=== PATIENT | female | born 1945 | race Caucasian/White ===

== ENCOUNTER 2019-10-11 12:00 | Outpatient (CLI) | payer MEDICARE, SELFPAY ==
[2019-10-11 12:49] LABS: Blood Urea Nitrogen 17 mg/dL (7-17); Calcium 9.8 mg/dL (8.4-10.2); Carbon Dioxide 27 mmol/L (22-30); Chloride 96 mmol/L (98-107); Estimated Glomerular Filt Rate 55; Glucose 104 mg/dL (65-105); Sodium 137 mmol/L (137-145)
== END 2019-10-11 12:01 | disposition home or self-care (01) ==
DX: I25.10 Atherosclerotic heart disease of native coronary artery without angina pectoris (principal)
CPT/HCPCS: 36415; 80048

== ENCOUNTER 2020-01-22 20:18 | Observation (INO) | payer MEDICARE, SELFPAY ==
--- NOTE | ~2020-01-22 | CT_ITS ---
EXAMINATION: CT abdomen pelvis w con INDICATION: Lower abdominal pain and nausea TECHNIQUE: Computed tomographic images of the abdomen and pelvis were obtained after the administrati on of 100 cc of Omnipaque 350 intravenous contrast. The dose-length product (DLP) was 1080.89 mGy-cm. Automated exposure control and iterative reconstruction technique were employed. COMPARISON: None available FINDINGS: Minimal dependent atelectasis is present in the lung bases. The heart size is normal. Cysts of the liver measure up to 8 mm. The spleen, pancreas, gallbladder, and adrenal glands are normal. T here is scarring in the lower pole of the left kidney. Cysts of the right kidney measure up to 4 mm. There is calcified atherosclerosis of the aorta and many of the other arteries. There is periportal l ymphadenopathy which is likely reactive. There is a large volume of liquid and solid stool throughout the colon. There is a short segment of luminal narrowing the sigmoid colon without significant diste ntion of the upstream bowel, likely due to decompressed state. The stomach is distended. There is wal l thickening involving the third and fourth portions of the duodenum as well as the proximal jejunum. A small amount of fluid is present in the associated small bowel mesentery. The affected loops of aldo wel are not distended. There is a trace volume of pelvic ascites. There is severe lumbar spondylosis. IMPRESSION: 1. Wall thickening involving nondilated loops of proximal small bowel, with edema of the associated s mall bowel mesentery, of unclear etiology. Findings could be inflammatory, related to inflammatory aldo wel disease, enteritis, medication, or less likely ischemia. Reviewed, dictated and finalized at location A. IMPRESSION: 1. Wall thickening involving nondilated loops of proximal small bowel, with arnie ma of the associated small bowel mesentery, of unclear etiology. Findings could be inflammatory, related to inflammatory bowel disease, enteritis, medication, or less likely ischemia.
[2020-01-22 20:23] VITALS: BP 80/51; PULSE 67; RESP 20; TEMP 36.6; O2SAT 95
--- NOTE | 2020-01-22 20:32 | ECG_ITS ---
Measurements Intervals [place] Rate: 71 P: 43 IN: 187 QRS: -28 QRSD: 105 T: 29 QT: 419 QTc: 456 Interpretive Statements SINUS RHYTHM WITH MARKED SINUS ARRHYTHMIA BORDERLINE R WAVE PROGRESSION, ANTERIOR LEADS INFERIOR INFARCT, AGE INDETERMINATE BORDERLINE ST ABNORMALITY- HIGH LATERAL LEADS ABNORMAL ECG Electronically Signed On 01-23-2020 7:17:33 CDT by Mian De D.O.
[2020-01-22 20:34] LABS: Glucose Point of Care 108 (65-105)
--- NOTE | 2020-01-22 20:41 | ED.ABDPAIN ---
HPI - Abdominal Pain General Chief Complaint: Abdominal Pain Stated Complaint: ABD PAIN Time Seen by Provider: 01/22/20 20:34 Source: patient Mode of arrival: ambulatory Limitations: no limitations History of Present Illness HPI narrative: Patient is a 74-year-old female who presents to the emergency department with complaint of lower abdominal pain. Patient reports onset of symptoms at 730 this evening. Patient locates the pain in the suprapubic and right lower quadrant region of her lower abdomen. She reports nausea but denies any vomiting. Patient was given nitroglycerin prior to arrival and was noted to be hypotensive prior to arrival and IV fluids were initiated. Patient is currently receiving 1 L fluid bolus that was initiated by EMS. Patient is complaining of urge to have a bowel movement and is diaphoretic. Patient states she has a history of IBS. She denies any blood in her stools or black tarry stools. She denies having any diarrhea. MD elicited complaint: abdominal pain Onset (ago): hour(s) (1) Pain Consistency: constant Location: RLQ and suprapubic Associated symptoms: nausea Related Data Home Medications Medication Instructions Recorded Confirmed Benadryl 25 mg BYMOUTH Q4-6H PRN 09/21/19 01/23/20 amlodipine 5 mg PO DAILY 09/21/19 01/23/20 aspirin 81 mg PO DAILY 09/21/19 01/23/20 atorvastatin 10 mg PO DAILY 09/21/19 01/23/20 folic acid 0.4 mg PO BID 09/21/19 01/23/20 metoprolol tartrate 25 mg PO BID 09/21/19 01/23/20 omega-3 fatty acids-fish oil 1 cap PO DAILY 09/21/19 01/23/20 cyclobenzaprine 5 mg PO TID PRN 01/23/20 01/23/20 lanolin bryqpsm-ny-f.pet-ceres 1 applic TOPICAL PRN 01/23/20 01/23/20 [Minerin Creme] paroxetine HCl 20 mg PO DAILY 01/23/20 01/23/20 Allergies Allergy/AdvReac Type Severity Reaction Status Date / Time No Known Allergies Allergy Verified 09/21/19 10:22 Review of Systems Review of Systems: All systems reviewed & are unremarkable except as noted in HPI and below Constitutional: Constitutional: Reports excessive sweating Cardiovascular: Cardiovascular: Denies chest pain Respiratory: Respiratory: Denies dyspnea Gastrointestinal: Gastrointestinal: Reports abdominal pain and Reports nausea PMFSH Family History Family History Father Family history of coronary artery disease Heart disease of heart disease Mother Family history of coronary artery disease Heart disease of heart disease Sibling Family history of coronary artery disease Heart disease 2 brothers have had CAD and stents Social History Social History Social History: The patient lives at home with her who is now on hospice. She has 2 daughters and 1 son. The patient has been smoking for approximately 25-30 years. She quit at 1 point and then restarted. Carlene Loja her daughter is a durable power workers compensation defense attorney for healthcare. The patient desires to be a full code. 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 Patient now smokes about 3/4 of a pack a cigarettes a day. Smoking packs per day: 0.75 Smoking cigarettes per day: 15.0 Years smoked: 20 Smoking pack-years: 15.00 Smoking status: Current some day smoker Tobacco type: cigarettes Second hand tobacco smoke exposure: Yes Alcohol intake: current Substance use: never Gender identity (if verbalized by the patient): Male Spiritual care concerns: No Agree to blood products: Yes Exam Const: General: cooperative, alert, diaphoretic and uncomfortable Nutritional Appearance: obese Orientation/consciousness: patient oriented x3 Limitations: no limitations Resp: Effort & Inspection: normal respiratory effort Auscultation: clear to auscultation bilaterally Cardio: Rate: bradycardic Rhythm: regular rhythm GI: GI Palp: Yes Soft to palpation and Yes Tenderness to palpation present (GI) (
[2020-01-22 20:56] LABS: Basophils Absolute Auto 0.1 K/mm3 (0.0-0.1); Basophils Percent Auto 0.8 % (0.2-1.2); Eosinophils Absolute Auto 0.2 K/mm3 (0-0.3); Eosinophils Percent Auto 1.6 % (0-4.4); Hematocrit 38.3 % (37.0-47.0); Hemoglobin 13.1 g/dL (12.0-15.0); Immature Granulocyte Absolute 0.03 K/mm3 (0.00-0.031); Immature Granulocyte Percent A 0.3 % (0-0.5); Lymphocytes Absolute Auto 1.82 K/mm3 (0.9-3.2); Lymphocytes Percent Auto 18.3 % (18.3-44.2); Mean Corpuscular HGB Conc 34.2 g/dl (32-36); Mean Corpuscular Hemoglobin 30.9 pg (26-34); Mean Corpuscular Volume 90.3 fl (80-100); Mean Platelet Volume 11.6 fl (7.4-10.4); Monocytes Absolute Auto 0.4 K/mm3 (0.1-0.6); Monocytes Percent Auto 3.7 % (2.6-8.5); Neutrophils Absolute Auto 7.5 K/mm3 (1.3-6.7); Neutrophils Percent Auto 75.3 % (45.5-73.1); Platelet Count Result 272 k/mm3 (150-375); Red Blood Count 4.24 M/mm3 (4.2-5.4); Red Cell Distribution Width 13.6 % (11.5-14.5); White Blood Count 9.9 K/mm3 (4.5-10.0)
[2020-01-22 21:05] LABS: INR 1.2; Partial Thromboplastin Time 25.5 SECONDS (22.3-36.8); Prothrombin Time 14.9 Seconds (11.1-14.7)
[2020-01-22 21:07] LABS: Alanine Aminotransferase 15 U/L (4-35); Alkaline Phosphatase 113 U/L (38-126); Aspartate Amino Transferase 28 U/L (14-36); Bilirubin,Total 0.7 mg/dL (0.2-1.3); Blood Urea Nitrogen 16 mg/dL (7-17); Carbon Dioxide 22 mmol/L (22-30); Chloride 100 mmol/L (98-107); Estimated CRCL calculation 43 ml/min; Estimated Glomerular Filt Rate 44; Glucose 110 mg/dL (65-105); Lipase 158 U/L (23-300); Sodium 132 mmol/L (137-145)
[2020-01-22] MEDS: ONDANSETRON INJ 4 MG/2 ML VIAL IV PUSH (21:08)
[2020-01-22] MEDS: SODIUM CHLORIDE 0.9% IV 1,000 ML 1000 ML (21:08)
[2020-01-22 22:01] LABS: Lactic Acid Reflex 2.1 mmol/L (0.7-2.1)
[2020-01-22 22:10] VITALS: BP 106/95; PULSE 76; RESP 20
[2020-01-22 22:48] VITALS: BP 99/67; PULSE 57; RESP 24; O2SAT 98
[2020-01-22 23:13] VITALS: BP 121/52; PULSE 54; RESP 19; O2SAT 100
[2020-01-22 23:15] LABS: Add Urine Microscopic? YES; Appearance Urine Clear (Clear); Bilirubin Urine Negative (Negative); Blood Urine Negative (Negative); Color Urine Yellow (Yellow); Glucose Urine UA Negative (Negative); Ketones Urine Trace mg/dL (Negative); Leukocyte Esterase Ur Negative LEU/UL (Negative); Mucus Urine Rare /lpf; Nitrate Urine Negative (Negative); Protein Urine 2+ mg/dL (Negative); RBC Urine 0-2 /hpf (0-2); WBC Urine 0-3 /hpf
[2020-01-22] MEDS: LACTATED RINGERS 1,000 ML 999 ML IV CONT (23:16)
[2020-01-23] VITALS (9 sets, daily range): BP systolic 120–169; BP diastolic 50–72; PULSE 58–84; RESP 15–20; TEMP 36.2–38.1; O2SAT 90–100; BMI 31.8
[2020-01-23 00:48] LABS: Reflex Lactic Acid Yes or No Add Lactic
--- NOTE | 2020-01-23 01:12 | ADMGEN ---
This patient, Yvonne Cunningham, was admitted to [facility] Surg Room 303-01. Patient/family oriented to hospital policies and general routines including ID bracelet, bed and alarms, visiting hours, pain management, procedures, bathroom and other care routines, personal items, smoking policy, room service/diet, and visiting hours. Valuables list has been completed. Information on how to activate the Rapid Response Team has been discussed. Patient/Family are encouraged to report perceived risks to care and to ask questions if they do not understand what they are told or what they should do.
[2020-01-23 01:21] LABS: Lactic Acid 3.3 mmol/L (0.7-2.1)
[2020-01-23] MEDS: LACTATED RINGERS 1,000 ML 125 ML IV CONT ×3 (01:48→22:41)
[2020-01-23] MEDS: LACTATED RINGERS 1,000 ML 999 ML IV CONT (04:05)
--- NOTE | 2020-01-23 05:10 | PM.IMHP ---
H&P: HPI History of Present Illness Chief complaint: Abdominal pain, diarrhea Narrative: Date and time of patient contact: 01/23/2020 at 3:30 a.m. Yvonne Cunningham is a 74 year old female with a past medical history of coronary artery disease with recent non STEMI, hypertension, and GERD who presented to the ER via EMS with sudden onset of lower abdominal pain around 7:00 p.m. accompanied by diarrhea. The patient reports that her pain is a 10/10 in intensity. She had several bouts of large volume watery stools while in the ER. She denies any fevers or chills. She had just eaten lasagna for dinner when her abdominal pain started. She did have some nausea with pain but no vomiting. Patient reports that her abdominal pain is still a 10/10 in intensity. She denies any chest pain or shortness of breath. She has not had any recent ill contacts. She has never had symptoms like this before. She self diagnosed herself with irritable bowel syndrome because she has loose stools about once a month with crampy abdominal pain. She denies any fevers or chills. Her ate the same food that she did and did not get sick. When she was having bowel movements patient we get diaphoretic and pale. In the ER the patient was noted to become bradycardic and hypotensive with these episodes. When EMS arrived at the patient's house they gave the patient sublingual nitro after which patient had hypotension. In the ER the patient reported the pain was in the suprapubic and right lower quadrant of her abdomen. Currently the patient tells me her abdominal pain is generalized. She denies any eliciting or relieving factors. Patient denies any melena or hematochezia. The patient received 2 L of normal saline in the ER. Review of Systems Review of Systems: Narrative: 12 systems were reviewed with pertinent positives and negatives per HPI. Except as documented in the HPI, all other systems were reviewed and are negative. [facility] Past Medical History Medical History Anxiety Arthritis CAD (coronary artery disease) Depression GERD (gastroesophageal reflux disease) HLD (hyperlipidemia) HTN (hypertension) Non-STEMI (non-ST elevated myocardial infarction) September 2019 with left heart catheterization demonstrating modest left main disease, total occlusion of LAD and right coronary artery proximally, modest 40-50% stenosis of the 1st obtuse marginal branch of the circumflex, remaining patency of GARCIA to LAD, patency of saphenous vein graft to RCA, occlusion of the proximal aspect of the vein graft to the 1st obtuse marginal branch circumflex, mild left ventricular systolic dysfunction with posterior basal akinesis with good ejection fraction with medical therapy recommended Tobacco use Surgical History Surgical History (Updated 01/23/20 @ 07:10 by Katalina Magallon DO) H/O lumpectomy Beng[place] left breast History of bladder surgery Tied up History of carpal tunnel surgery Left wrist History of carpal tunnel surgery of left wrist 2008 History of colonoscopy with polypectomy January [address] 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 She has 2 daughters and 1 son. The patient has been smoking for approximately 25-30 years. She qu
[2020-01-23 06:16] LABS: Hematocrit 36.2 % (37.0-47.0); Hemoglobin 11.8 g/dL (12.0-15.0); Mean Corpuscular HGB Conc 32.6 g/dl (32-36); Mean Platelet Volume 11.6 fl (7.4-10.4); Platelet Count Result 190 k/mm3 (150-375); Red Blood Count 3.81 M/mm3 (4.2-5.4); Red Cell Distribution Width 13.8 % (11.5-14.5)
[2020-01-23 06:35] LABS: Blood Urea Nitrogen 17 mg/dL (7-17); Calcium 8.6 mg/dL (8.4-10.2); Carbon Dioxide 17 mmol/L (22-30); Chloride 104 mmol/L (98-107); Estimated CRCL calculation 48 ml/min; Estimated Glomerular Filt Rate 49; Glucose 149 mg/dL (65-105); Potassium 4.3 mmol/L (3.4-5.0); Sodium 133 mmol/L (137-145)
[2020-01-23 07:01] LABS: Lactic Acid Reflex 5.1 mmol/L (0.7-2.1)
[2020-01-23] MEDS: MORPHINE SULFATE 2 MG/ML INJ IV PUSH (07:58)
[2020-01-23] MEDS: OMEGA 3 POLYUNSAT FATTY ACIDS 1 GM CAP PO (08:02)
[2020-01-23] MEDS: FOLIC ACID 0.4 MG TABLET PO ×2 (08:02→17:18)
[2020-01-23] MEDS: ATORVASTATIN 10 MG TABLET PO (08:02)
[2020-01-23] MEDS: lisinopriL 20 MG TABLET PO ×2 (08:02→17:19)
[2020-01-23] MEDS: PANTOPRAZOLE 40 MG TABLET PO (08:02)
[2020-01-23] MEDS: ASPIRIN 81 MG CHEWABLE TABLET PO (08:02)
[2020-01-23] MEDS: PAROXETINE 20 MG TABLET PO (08:02)
[2020-01-23] MEDS: METOPROLOL TARTRATE 25 MG TABLET PO ×2 (08:03→17:18)
[2020-01-23] MEDS: buPROPion HCL 100 MG TABLET PO ×2 (08:03→17:17)
--- NOTE | 2020-01-23 10:41 | WPDGICN ---
Assessment and Plan Assessment and plan (1) Acute abdominal pain: Code(s): R10.9 - Unspecified abdominal pain Status: Acute Assessment and Plan: Patient with acute onset of abdominal pain associated with diarrhea. Mild leukocytosis on her labs. Abnormal CAT scan all suspicious for infectious etiology. CT scan suggests this may be located the small bowel. Source of infection is unclear. Inflammatory bowel disease appears to be much less likely. Ischemia is possible but also felt to be less likely. Plan is to obtain stool cultures and start on broad-spectrum antibiotic coverage. IV fluid rehydration anticipated. We will continue monitor CBC including white count hemoglobin. And assess response to therapy. Colonoscopy an additional in size workup will be deferred unless initial therapy fails to improve her diarrhea (2) Diarrhea: Qualifiers: Diarrhea type: unspecified type Qualified Code(s): R19.7 - Diarrhea, unspecified Code(s): R19.7 - Diarrhea, unspecified Status: Acute (3) CAD (coronary artery disease): Qualifiers: Coronary Disease-Associated Artery/Lesion type: unspecified vessel or lesion type [place] vs. transplanted heart: unspecified whether [place] or transplanted heart Associated angina: with stable angina Qualified Code(s): I25.118 - Atherosclerotic heart disease of [place] coronary artery with other forms of angina pectoris Code(s): I25.10 - Atherosclerotic heart disease of [place] coronary artery without angina pectoris Status: Acute GI Consult Note Consult date/time: 01/23/20 10:41 HPI: Yvonne Cunningham is a 74 year old female seen in evaluation at the request of the hospitalist service. Patient in her usual state of health until yesterday when she had sudden onset of abdominal pain and profuse diarrhea. She had liquid watery stools with poor control. Diarrhea and abdominal pain persisted throughout the night. Because of feeling weak lightheaded she went to the emergency room. Today she is notice some blood tinge to her stools typically with wiping. Over the last several years she has had intermittent bouts of diarrhea typically lasting 1 or 2 days a month period that she attributed to irritable bowel syndrome. She has a longstanding history of anxiety. Her recently has been ill in in October. Patient known to have atherosclerotic heart disease had a small myocardial infarction in September 2019. At home she typically would take Imodium to control her bouts of diarrhea. She has had no recent travel. She has had no obviously spoiled meal intake period and has not eaten any unusual dietary intake. None of the her pets at home were sick. Family history is noncontributory In the emergency room CT scan suggested some inflammation of the small bowel. Review of Systems Review of Systems: All systems reviewed & are unremarkable except as noted in HPI and below PMFSH Past Medical History Medical History Anxiety Arthritis CAD (coronary artery disease) Depression GERD (gastroesophageal reflux disease) HLD (hyperlipidemia) HTN (hypertension) Non-STEMI (non-ST elevated myocardial infarction) September 2019 with left heart catheterization demonstrating modest left main disease, total occlusion of LAD and right coronary artery proximally, modest 40-50% stenosis of the 1st obtuse marginal branch of the circumflex, remaining patency of GARCIA to LAD, patency of saphenous vein graft to RCA, occlusion of the proximal aspect of the vein graft to the 1st obtuse marginal branch circumflex, mild left ventricular systolic dysfunction with posterior basal akinesis with good ejection fraction with medical therapy recommended Tobacco use Surgical History Surgical History H/O lumpectomy Beng[place] left breast History of bladder surgery Tied up History of carpal tunnel surgery Left wrist Hi
--- NOTE | 2020-01-23 10:46 | P.PNIM_ITS ---
Progress Note: A&P Assessment and Plan (1) Diarrhea: Qualifiers: Diarrhea type: unspecified type Qualified Code(s): R19.7 - Diarrhea, un specified Code(s): R19.7 - Diarrhea, unspecified Status: Acute Assessment and Plan: * Patient presents with acute onset diarrhea and abdominal pain that began yes terday 01/21. * Leukocytosis noted, afebrile today. CT abdomen shows small bowel wall thickening without evidence of obstruction. * GI consulted - discussed with Dr Sharma and appreciate recommendations. Obtain stool studies and stool occult blood. Blood cultures pending. * Start IV ciprofloxacin and metronidazole (day 1) for possible infectious etiology. * Lactic acid up to 5.1 - repeat at noon. Continue IV hydration. Continue to monitor vital signs and symptoms. Edit: Lactic acid improved to 1.9 this afternoon. (2) Acute abdominal pain: Code(s): R10.9 - Unspecified abdominal pain Status: Acute Assessment and Plan: * She describes intermittent abdominal cramping and diarrhea about one to two times per month over the last few years which she attributes to irritable bowel syndrome, although suspect her acute symptoms are secondary to above. (3) Vasovagal episode: Code(s): R55 - Syncope and collapse Status: Resolved Assessment and Plan: * Low BPs with near syncope with significant BMs yesterday. No issues with dizziness or syncope today. * Continue IV hydration and monitor BP. (4) CAD (coronary artery disease): Qualifiers: Associated angina: with stable angina Coronary Disease-Associated Artery/Lesion type: unspecified vessel or lesion type [place] vs. transplanted heart: unspecified whether [place] or transplanted heart Qualified Code(s): I25.118 - Atherosclerotic heart disease of [place] coronary artery with other forms of angina pectoris Code(s): I25.10 - Atherosclerotic heart disease of [place] coronary artery without angina pectoris Status: Chronic Assessment and Plan: * With NSTEMI Sep 2019 medically managed following cardiac cath. Stable, no chest pain. Continue home medications, home Plavix held this AM in light of blood in stool and hopefully can resume soon if not having significant hematochezia. (5) Anxiety: Code(s): F41.9 - Anxiety disorder, unspecified Status: Chronic Assessment and Plan: * Patient describes increased stress lately associated with the recent passing of her in Oct 2019. * Stable, continue home medications. (6) HTN (hypertension): Qualifiers: Hypertension type: essential hypertension Qualified Code(s): I10 - Ess ential (primary) hypertension Code(s): I10 - Essential (primary) hypertension Status: Chronic Assessment and Plan: * BP 150/72 this AM, continue home lisinopril, Lopressor, Norvasc. (7) HLD (hyperlipidemia): Qualifiers: Hyperlipidemia type: unspecified Qualified Code(s): E78.5 - Hyperlipidemia, unspecified Code(s): E78.5 - Hyperlipidemia, unspecified Status: Chronic Assessment and Plan: * Continue home statin therapy. Subjective Date/time seen: 01/23/20 10:00 Interval history: Ms. Cunningham is a 74yo F admitted for abdominal pain and diarrhea. She describes still feeling quite unwell today but abdominal pain has improved with tylenol. She descr
--- NOTE | 2020-01-23 10:46 | PM.IMPN ---
Progress Note: A&P Assessment and Plan (1) Diarrhea: Qualifiers: Diarrhea type: unspecified type Qualified Code(s): R19.7 - Diarrhea, unspecified Code(s): R19.7 - Diarrhea, unspecified Status: Acute Assessment and Plan: Patient presents with acute onset diarrhea and abdominal pain that began yesterday 01/21. Leukocytosis noted, afebrile today. CT abdomen shows small bowel wall thickening without evidence of obstruction. GI consulted - discussed with Dr Sharma and appreciate recommendations. Obtain stool studies and stool occult blood. Blood cultures pending. Start IV ciprofloxacin and metronidazole (day 1) for possible infectious etiology. Lactic acid up to 5.1 - repeat at noon. Continue IV hydration. Continue to monitor vital signs and symptoms. Edit: Lactic acid improved to 1.9 this afternoon. (2) Acute abdominal pain: Code(s): R10.9 - Unspecified abdominal pain Status: Acute Assessment and Plan: She describes intermittent abdominal cramping and diarrhea about one to two times per month over the last few years which she attributes to irritable bowel syndrome, although suspect her acute symptoms are secondary to above. (3) Vasovagal episode: Code(s): R55 - Syncope and collapse Status: Resolved Assessment and Plan: Low BPs with near syncope with significant BMs yesterday. No issues with dizziness or syncope today. Continue IV hydration and monitor BP. (4) CAD (coronary artery disease): Qualifiers: Associated angina: with stable angina Coronary Disease-Associated Artery/Lesion type: unspecified vessel or lesion type [place] vs. transplanted heart: unspecified whether [place] or transplanted heart Qualified Code(s): I25.118 - Atherosclerotic heart disease of [place] coronary artery with other forms of angina pectoris Code(s): I25.10 - Atherosclerotic heart disease of [place] coronary artery without angina pectoris Status: Chronic Assessment and Plan: With NSTEMI Sep 2019 medically managed following cardiac cath. Stable, no chest pain. Continue home medications, home Plavix held this AM in light of blood in stool and hopefully can resume soon if not having significant hematochezia. (5) Anxiety: Code(s): F41.9 - Anxiety disorder, unspecified Status: Chronic Assessment and Plan: Patient describes increased stress lately associated with the recent passing of her in Oct 2019. Stable, continue home medications. (6) HTN (hypertension): Qualifiers: Hypertension type: essential hypertension Qualified Code(s): I10 - Essential (primary) hypertension Code(s): I10 - Essential (primary) hypertension Status: Chronic Assessment and Plan: BP 150/72 this AM, continue home lisinopril, Lopressor, Norvasc. (7) HLD (hyperlipidemia): Qualifiers: Hyperlipidemia type: unspecified Qualified Code(s): E78.5 - Hyperlipidemia, unspecified Code(s): E78.5 - Hyperlipidemia, unspecified Status: Chronic Assessment and Plan: Continue home statin therapy. Subjective Date/time seen: 01/23/20 10:00 Interval history: Ms. Cunningham is a 74yo F admitted for abdominal pain and diarrhea. She describes still feeling quite unwell today but abdominal pain has improved with tylenol. She describes sudden onset of symptoms yesterday with abdominal cramping and diarrhea, feeling sweaty, weak and tired. Diarrhea seems to have slowed a bit this morning; nursing noted red tinge in BM today. She denies noting any bloody or black BM prior to this. She tells me she felt nauseous yesterday without vomiting, nausea is improved today. She denies any recent antibiotic use. No recent travel. She
[2020-01-23] MEDS: CIPROFLOXACIN 400 MG/D5W 200ML 200 ML 200 MG IVPB (12:13)
[2020-01-23 13:00] LABS: Lactic Acid Reflex 1.9 mmol/L (0.7-2.1)
[2020-01-23] MEDS: metroNIDAZOLE 500 MG/ISO 100ML 500 MG/100 ML BAG 100 MG IVPB ×2 (13:29→20:56)
[2020-01-23 18:02] LABS: IFOB Positive Control Positive; Immunochemical Fecal Occult Bl Positive (N)
[2020-01-23] MEDS: CIPROFLOXACIN 400 MG/D5W 200ML 200 ML 150 MG IVPB (22:43)
[2020-01-23] MEDS: CYCLOBENZAPRINE HCL 5 MG TABLET PO (22:44)
[2020-01-24] MEDS: metroNIDAZOLE 500 MG/ISO 100ML 500 MG/100 ML BAG 100 MG IVPB ×3 (04:21→20:13)
[2020-01-24 06:00] VITALS: BP 122/40; PULSE 73; RESP 18; TEMP 36.9; O2SAT 90
[2020-01-24 06:30] LABS: Hematocrit 30.3 % (37.0-47.0); Mean Corpuscular Hemoglobin 30.7 pg (26-34); Mean Corpuscular Volume 92.9 fl (80-100); Mean Platelet Volume 11.9 fl (7.4-10.4); Platelet Count Result 184 k/mm3 (150-375); Red Blood Count 3.26 M/mm3 (4.2-5.4); Red Cell Distribution Width 14.2 % (11.5-14.5); White Blood Count 8.2 K/mm3 (4.5-10.0)
[2020-01-24 06:45] LABS: Blood Urea Nitrogen 19 mg/dL (7-17); Calcium 8.6 mg/dL (8.4-10.2); Carbon Dioxide 25 mmol/L (22-30); Chloride 103 mmol/L (98-107); Estimated CRCL calculation 44 ml/min; Estimated Glomerular Filt Rate 44; Glucose 94 mg/dL (65-105); Magnesium 1.9 mg/dL (1.6-2.3); Phosphorus 4.2 mg/dL (2.5-4.5); Potassium 3.7 mmol/L (3.4-5.0); Sodium 133 mmol/L (137-145)
--- NOTE | 2020-01-24 08:05 | WPDGIPROGNO ---
Progress Note: A&P Additional Plan Patient reports that she feels better today. Less abdominal pain. Less diarrhea. Physical exam reveals her to be alert. Vital signs stable. Comfortable at rest. She is anicteric. Lungs are clear. Heart without murmur. Abdomen is soft with no localized tenderness. Impression 1. Small bowel enteritis. Likely infectious etiology. Plan is to continue antibiotics. Stool cultures are pending. Will increase diet and activity. Discharge tomorrow if stable on oral antibiotics. Subjective Date/time seen: 01/24/20 08:05 Objective Data Vital Signs Vital Signs: Vital Signs - 24 hr 01/23/20 14:00 01/23/20 17:18 01/23/20 21:43 Temperature 37.6 C 38.1 C H Pulse Rate 83 84 84 Respiratory Rate 16 18 Blood Pressure 147/57 H 120/50 L Pulse Oximetry 92 90 01/24/20 06:00 Temperature 36.9 C Pulse Rate 73 Respiratory Rate 18 Blood Pressure 122/40 L Pulse Oximetry 90 Intake/Output Intake/Output: Intake & Output 01/21/20 01/22/20 01/23/20 01/24/20 23:59 23:59 23:59 23:59 Intake Total 1100 4590 1016 Output Total 200 Balance 1100 4590 816 Meds/Results Medications: Active Medications Generic Name Dose Route Start Last Admin Trade Name Freq PRN Reason Stop Dose Admin Aspirin 81 mg 01/23/20 09:00 01/23/20 08:02 Aspirin Chewable PO 81 mg DAILY BERKLEY Administration Atorvastatin Calcium 10 mg 01/23/20 09:00 01/23/20 08:02 Lipitor PO 10 mg DAILY BERKLEY Administration Bupropion HCl 100 mg 01/23/20 09:00 01/23/20 17:17 Wellbutrin PO 100 mg BID BERKLEY Administration Clopidogrel Bisulfate 75 mg 01/23/20 09:00 01/23/20 16:25 Plavix PO Not Given DAILY BERKLEY Cyclobenzaprine HCl 5 mg 01/23/20 02:32 01/23/20 22:44 Flexeril PO 5 mg TID PRN Administration Muscle Spasm Fish Oil 1 gm 01/23/20 09:00 01/23/20 08:02 Lovaza PO 1 gm DAILY BERKLEY Administration Folic Acid 0.4 mg 01/23/20 09:00 01/23/20 17:18 Folic Acid PO 0.4 mg BID BERKLEY Administration Lactated Ringer's 1,000 mls @ 125 mls/hr 01/23/20 00:10 01/24/20 05:40 Lr - Lactated Ringers Iv IV CONT 125 mls/hr .Q8H BERKLEY Infusion Ciprofloxacin/Dextrose 200 mls @ 200 mls/hr 01/23/20 11:00 01/24/20 00:19 Cipro 400 Mg/D5w 200 Ml IVPB Infused Q12H BERKLEY Infusion Metronidazole 500 mg in 100 mls @ 100 mls/hr 01/23/20 12:00 01/24/20 05:21 Flagyl 500 Mg/Iso Soln 100 Ml IVPB Infused Q8H BERKLEY Infusion Lisinopril 20 mg 01/23/20 09:00 01/23/20 17:19 Prinivil PO 20 mg BID BERKLEY Administration Metoprolol Tartrate 25 mg 01/23/20 09:00 01/23/20 17:18 Lopressor PO 25 mg BID BERKLEY Administration Morphine Sulfate 2 mg 01/23/20 03:41 01/23/20 07:58 Morphine Sulfate Inj IV PUSH 2 mg Q4H PRN Administration Pain Rated 7-10 Ondansetron HCl 4 mg 01/23/20 00:08 Zofran Inj IV PUSH Q4H PRN Nausea Pantoprazole Sodium 40 mg 01/23/20 09:00 01/23/20 08:02 Protonix PO 40 mg DAILY BERKLEY Administration Paroxetine HCl 20 mg 01/23/20 09:00 01/23/20 08:02 Paxil PO 20 mg DAILY BERKLEY Administration Radiology Results: ITS Impressions Abdomen/Pelvis CT 01/22/20 21:41 IMPRESSION: 1. Wall thickening involving nondilated loops of proximal small bowel, with edema of the associated small bowel mesentery, of unclear etiology. Findings could be inflammatory, related to inflammatory bowel disease, enteritis, medication, or less likely ischemia. Labs Labs: Laboratory Results - last 24 hr 01/23/20 01/23/20 01/24/20 11:45 17:32 05:51 WBC 8.2 RBC 3.26 L Hgb 10.0 L Hct 30.3 L MCV 92.9 MCH 30.7 MCHC 33.0 RDW 14.2 Plt Count 184 MPV 11.9 H Sodium Potassium Chloride Carbon Dioxide BUN Creatinine Estim Creat Clear Calc Estimated GFR Glucose Lactic Acid 1.9 Calcium Phosphorus Magnesium Stl Occult Bloo
[2020-01-24] MEDS: buPROPion HCL 100 MG TABLET PO ×2 (10:13→17:16)
[2020-01-24] MEDS: METOPROLOL TARTRATE 25 MG TABLET PO ×2 (10:13→17:16)
[2020-01-24] MEDS: FOLIC ACID 0.4 MG TABLET PO ×2 (10:13→17:17)
[2020-01-24] MEDS: CYCLOBENZAPRINE HCL 5 MG TABLET PO (10:13)
[2020-01-24] MEDS: OMEGA 3 POLYUNSAT FATTY ACIDS 1 GM CAP PO (10:14)
[2020-01-24] MEDS: lisinopriL 20 MG TABLET PO (10:14)
[2020-01-24] MEDS: ATORVASTATIN 10 MG TABLET PO (10:14)
[2020-01-24] MEDS: ASPIRIN 81 MG CHEWABLE TABLET PO (10:14)
[2020-01-24] MEDS: PAROXETINE 20 MG TABLET PO (10:15)
[2020-01-24] MEDS: PANTOPRAZOLE 40 MG TABLET PO (10:15)
[2020-01-24] MEDS: LACTATED RINGERS 1,000 ML 125 ML IV CONT ×3 (10:16→17:22)
--- NOTE | 2020-01-24 10:25 | P.PNIM_ITS ---
Progress Note: A&P Assessment and Plan (1) Diarrhea: Qualifiers: Diarrhea type: unspecified type Qualified Code(s): R19.7 - Diarrhea, un specified Code(s): R19.7 - Diarrhea, unspecified Status: Acute Assessment and Plan: * Patient presents with acute onset diarrhea and abdominal pain that began 01/21. * Leukocytosis noted, afebrile today. CT abdomen shows small bowel wall thickening without evidence of obstruction. * Dr Sharma following - appreciate recommendations. C diff negative, other stool studies pending. Blood cultures pending. * Continue IV ciprofloxacin and metronidazole (day 2) for possible infectious etiology. * Advance to clear liquids today. Continue IV hydration. Continue to monitor vital signs and symptoms. (2) Acute abdominal pain: Code(s): R10.9 - Unspecified abdominal pain Status: Acute Assessment and Plan: * She describes intermittent abdominal cramping and diarrhea about one to two times per month over the last few years which she attributes to irritable bowel syndrome, although suspect her acute symptoms are secondary to above. (3) Vasovagal episode: Code(s): R55 - Syncope and collapse Status: Resolved Assessment and Plan: * Low BPs with near syncope with significant BMs on arrival. No further issues with dizziness or syncope today. * Continue IV hydration and monitor BP. (4) CAD (coronary artery disease): Qualifiers: Associated angina: with stable angina Coronary Disease-Associated Artery/Lesion type: unspecified vessel or lesion type [place] vs. transplanted heart: unspecified whether [place] or transplanted heart Qualified Code(s): I25.118 - Atherosclerotic heart disease of [place] coronary artery with other forms of angina pectoris Code(s): I25.10 - Atherosclerotic heart disease of [place] coronary artery without angina pectoris Status: Chronic Assessment and Plan: * With NSTEMI Sep 2019 medically managed following cardiac cath. Stable, no chest pain. Continue home medications, home Plavix held this AM in light of blood in stool, resume tomorrow if still not having significant hematochezia. (5) Anxiety: Code(s): F41.9 - Anxiety disorder, unspecified Status: Chronic Assessment and Plan: * Patient describes increased stress lately associated with the recent passing of her in Oct 2019. * Stable, continue home medications. (6) HTN (hypertension): Qualifiers: Hypertension type: essential hypertension Qualified Code(s): I10 - Essential (primary) hypertension Code(s): I10 - Essential (primary) hypertension Status: Chronic Assessment and Plan: * BP 122/40 this AM, continue home lisinopril, Lopressor, Norvasc. Monitor BP and adjust treatment as needed. (7) HLD (hyperlipidemia): Qualifiers: Hyperlipidemia type: unspecified Qualified Code(s): E78.5 - Hyperlipidemia, unspecified Code(s): E78.5 - Hyperlipidemia, unspecified Status: Chronic Assessment and Plan: * Continue home statin therapy. Subjective Date/time seen: 01/24/20 10:00 Interval history: Ms. Cunningham is a 74yo F admitted for abdominal pain and diarrhea. She reports abdominal pain is persistent, diffuse today, but maybe slightly improved compared to yesterday. Diarrhea is improving, less frequent. No blo
--- NOTE | 2020-01-24 10:25 | PM.IMPN ---
Progress Note: A&P Assessment and Plan (1) Diarrhea: Qualifiers: Diarrhea type: unspecified type Qualified Code(s): R19.7 - Diarrhea, unspecified Code(s): R19.7 - Diarrhea, unspecified Status: Acute Assessment and Plan: Patient presents with acute onset diarrhea and abdominal pain that began 01/21. Leukocytosis noted, afebrile today. CT abdomen shows small bowel wall thickening without evidence of obstruction. Dr Sharma following - appreciate recommendations. C diff negative, other stool studies pending. Blood cultures pending. Continue IV ciprofloxacin and metronidazole (day 2) for possible infectious etiology. Advance to clear liquids today. Continue IV hydration. Continue to monitor vital signs and symptoms. (2) Acute abdominal pain: Code(s): R10.9 - Unspecified abdominal pain Status: Acute Assessment and Plan: She describes intermittent abdominal cramping and diarrhea about one to two times per month over the last few years which she attributes to irritable bowel syndrome, although suspect her acute symptoms are secondary to above. (3) Vasovagal episode: Code(s): R55 - Syncope and collapse Status: Resolved Assessment and Plan: Low BPs with near syncope with significant BMs on arrival. No further issues with dizziness or syncope today. Continue IV hydration and monitor BP. (4) CAD (coronary artery disease): Qualifiers: Associated angina: with stable angina Coronary Disease-Associated Artery/Lesion type: unspecified vessel or lesion type [place] vs. transplanted heart: unspecified whether [place] or transplanted heart Qualified Code(s): I25.118 - Atherosclerotic heart disease of [place] coronary artery with other forms of angina pectoris Code(s): I25.10 - Atherosclerotic heart disease of [place] coronary artery without angina pectoris Status: Chronic Assessment and Plan: With NSTEMI Sep 2019 medically managed following cardiac cath. Stable, no chest pain. Continue home medications, home Plavix held this AM in light of blood in stool, resume tomorrow if still not having significant hematochezia. (5) Anxiety: Code(s): F41.9 - Anxiety disorder, unspecified Status: Chronic Assessment and Plan: Patient describes increased stress lately associated with the recent passing of her in Oct 2019. Stable, continue home medications. (6) HTN (hypertension): Qualifiers: Hypertension type: essential hypertension Qualified Code(s): I10 - Essential (primary) hypertension Code(s): I10 - Essential (primary) hypertension Status: Chronic Assessment and Plan: BP 122/40 this AM, continue home lisinopril, Lopressor, Norvasc. Monitor BP and adjust treatment as needed. (7) HLD (hyperlipidemia): Qualifiers: Hyperlipidemia type: unspecified Qualified Code(s): E78.5 - Hyperlipidemia, unspecified Code(s): E78.5 - Hyperlipidemia, unspecified Status: Chronic Assessment and Plan: Continue home statin therapy. Subjective Date/time seen: 01/24/20 10:00 Interval history: Ms. Cunningham is a 74yo F admitted for abdominal pain and diarrhea. She reports abdominal pain is persistent, diffuse today, but maybe slightly improved compared to yesterday. Diarrhea is improving, less frequent. No blood in BMs reported today. No nausea or vomiting so far. She denies chest pain, shortness of breath, or dizziness. Review of Systems Review of Systems: Narrative: Twelve systems were reviewed with pertinent positives and negatives as per HPI. Exam Narrative: Exam Narrative: General: Female resting supine in bed in no acute distress. HEENT: Normocephalic, EOMI, oral mucosa tac
[2020-01-24] MEDS: CIPROFLOXACIN 400 MG/D5W 200ML 200 ML 200 MG IVPB ×2 (12:05→23:39)
[2020-01-24 14:00] VITALS: BP 110/58; PULSE 70; RESP 22; TEMP 36.8; O2SAT 92
[2020-01-24 22:00] VITALS: BP 143/43; PULSE 74; RESP 20; TEMP 36.9; O2SAT 95
[2020-01-25] MEDS: CYCLOBENZAPRINE HCL 5 MG TABLET PO ×2 (02:24→08:45)
[2020-01-25] MEDS: LACTATED RINGERS 1,000 ML 125 ML IV CONT (03:09)
[2020-01-25] MEDS: metroNIDAZOLE 500 MG/ISO 100ML 500 MG/100 ML BAG 100 MG IVPB ×2 (04:21→11:14)
[2020-01-25 06:00] VITALS: BP 148/51; PULSE 75; RESP 18; TEMP 36.6; O2SAT 91
[2020-01-25 06:49] LABS: Hematocrit 28.1 % (37.0-47.0); Hemoglobin 9.1 g/dL (12.0-15.0)
[2020-01-25 07:06] LABS: Alanine Aminotransferase 9 U/L (4-35); Albumin Level 2.7 g/dL (3.5-5.1); Alkaline Phosphatase 48 U/L (38-126); Aspartate Amino Transferase 18 U/L (14-36); Bilirubin,Total 0.1 mg/dL (0.2-1.3); Blood Urea Nitrogen 14 mg/dL (7-17); Calcium 8.1 mg/dL (8.4-10.2); Carbon Dioxide 26 mmol/L (22-30); Chloride 104 mmol/L (98-107); Estimated CRCL calculation 58 ml/min; Estimated Glomerular Filt Rate > 60; Glucose 78 mg/dL (65-105); Magnesium 1.7 mg/dL (1.6-2.3); Potassium 3.5 mmol/L (3.4-5.0); Sodium 134 mmol/L (137-145)
--- NOTE | 2020-01-25 07:30 | WPDGIPROGNO ---
Progress Note: A&P Additional Plan Patient alert and comfortable this morning. She states diarrhea has lessened. She has noticed some bright red blood admixed with her stools. She is tolerating liquid diet without difficulty. States abdominal pain much less. Physical exam reveals Vital Signs to be stable. HEENT exam unremarkable she is anicteric. Lungs are clear to auscultation and percussion. Heart is without murmur or extra sounds. Abdomen is soft. Bowel sounds are present. Mild abdominal tenderness much improved. Impression 1. Enteritis. Patient appears to have diarrhea and abdominal pain based on inflammation. CT scan suggest proximal small bowel. Infectious etiology felt most likely. Patient has had significant decline in hemoglobin. Plan is to continue broad-spectrum antibiotic coverage. Stool cultures are still pending. Plan to change to oral antibiotics. Advance diet. If patient is discharged outpatient colonoscopy advised if patient remains on hospital this can be performed next week. Subjective Date/time seen: 01/25/20 07:30 Objective Data Vital Signs Vital Signs: Vital Signs - 24 hr 01/24/20 14:00 01/24/20 22:00 01/25/20 06:00 Temperature 36.8 C 36.9 C 36.6 C Pulse Rate 70 74 75 Respiratory Rate 22 H 20 18 Blood Pressure 110/58 L 143/43 H 148/51 H Pulse Oximetry 92 95 91 Intake/Output Intake/Output: Intake & Output 01/22/20 01/23/20 01/24/20 01/25/20 23:59 23:59 23:59 23:59 Intake Total 1100 4590 4125 1450 Output Total 600 1000 Balance 1100 4590 3525 450 Meds/Results Medications: Active Medications Generic Name Dose Route Start Last Admin Trade Name Freq PRN Reason Stop Dose Admin Aspirin 81 mg 01/23/20 09:00 01/24/20 10:14 Aspirin Chewable PO 81 mg DAILY BERKLEY Administration Atorvastatin Calcium 10 mg 01/23/20 09:00 01/24/20 10:14 Lipitor PO 10 mg DAILY BERKLEY Administration Bupropion HCl 100 mg 01/23/20 09:00 01/24/20 17:16 Wellbutrin PO 100 mg BID BERKLEY Administration Clopidogrel Bisulfate 75 mg 01/23/20 09:00 01/23/20 16:25 Plavix PO Not Given DAILY BERKLEY Cyclobenzaprine HCl 5 mg 01/23/20 02:32 01/25/20 02:24 Flexeril PO 5 mg TID PRN Administration Muscle Spasm Fish Oil 1 gm 01/23/20 09:00 01/24/20 10:14 Lovaza PO 1 gm DAILY BERKLEY Administration Folic Acid 0.4 mg 01/23/20 09:00 01/24/20 17:17 Folic Acid PO 0.4 mg BID BERKLEY Administration Lactated Ringer's 1,000 mls @ 125 mls/hr 01/23/20 00:10 01/25/20 03:09 Lr - Lactated Ringers Iv IV CONT 125 mls/hr .Q8H BERKLEY Administration Ciprofloxacin/Dextrose 200 mls @ 200 mls/hr 01/23/20 11:00 01/24/20 23:39 Cipro 400 Mg/D5w 200 Ml IVPB 200 mls/hr Q12H BERKLEY Administration Metronidazole 500 mg in 100 mls @ 100 mls/hr 01/23/20 12:00 01/25/20 04:21 Flagyl 500 Mg/Iso Soln 100 Ml IVPB 100 mls/hr Q8H BERKLEY Administration Lisinopril 20 mg 01/25/20 09:00 Prinivil PO QAM BERKLEY Metoprolol Tartrate 25 mg 01/23/20 09:00 01/24/20 17:16 Lopressor PO 25 mg BID BERKLEY Administration Morphine Sulfate 2 mg 01/23/20 03:41 01/23/20 07:58 Morphine Sulfate Inj IV PUSH 2 mg Q4H PRN Administration Pain Rated 7-10 Ondansetron HCl 4 mg 01/23/20 00:08 Zofran Inj IV PUSH Q4H PRN Nausea Pantoprazole Sodium 40 mg 01/23/20 09:00 01/24/20 10:15 Protonix PO 40 mg DAILY BERKLEY Administration Paroxetine HCl 20 mg 01/23/20 09:00 01/24/20 10:15 Paxil PO 20 mg DAILY BERKLEY Administration Radiology Results: ITS Impressions Abdomen/Pelvis CT 01/22/20 21:41 IMPRESSION: 1. Wall thickening involving nondilated loops of proximal small bowel, with edema of the associated small bowel mesentery, of unclear etiology. Findings could be inflammatory, related to inflammatory bowel disease, enteritis, medication, or less likely ischemia. Labs Labs: Laboratory Results - last 24 hr
[2020-01-25 08:00] VITALS: PULSE 75; RESP 18; O2SAT 91
[2020-01-25] MEDS: ATORVASTATIN 10 MG TABLET PO (08:45)
[2020-01-25] MEDS: ASPIRIN 81 MG CHEWABLE TABLET PO (08:45)
[2020-01-25] MEDS: lisinopriL 20 MG TABLET PO (08:45)
[2020-01-25] MEDS: OMEGA 3 POLYUNSAT FATTY ACIDS 1 GM CAP PO (08:45)
[2020-01-25] MEDS: PAROXETINE 20 MG TABLET PO (08:45)
[2020-01-25] MEDS: FOLIC ACID 0.4 MG TABLET PO (08:45)
[2020-01-25] MEDS: PANTOPRAZOLE 40 MG TABLET PO (08:45)
[2020-01-25] MEDS: METOPROLOL TARTRATE 25 MG TABLET PO (08:45)
[2020-01-25] MEDS: MAGNESIUM SULF 2 GM/WATER 50ML 2 GM/50 ML BAG IVPB (09:43)
[2020-01-25] MEDS: CIPROFLOXACIN 400 MG/D5W 200ML 200 ML 200 MG IVPB (11:15)
[2020-01-25] MEDS: buPROPion HCL 100 MG TABLET PO (11:16)
[2020-01-25] MEDS: CLOPIDOGREL BISULFATE 75 MG TABLET PO (11:16)
--- NOTE | 2020-01-25 11:24 | PM.DS ---
DS: Admitting Diagnosis Admitting Diagnosis Admitting Diagnosis: Diarrhea, unspecified DS: Discharge Diagnosis Discharge Diagnosis (1) Diarrhea: Qualifiers: Diarrhea type: unspecified type Qualified Code(s): R19.7 - Diarrhea, unspecified Code(s): R19.7 - Diarrhea, unspecified Status: Acute Assessment and Plan: Date of Service 01/25/20 Ms. Cunningham is a 74yo F with history of hypertension, hyperlipidemia, anxiety, and coronary artery disease with recent NSTEMI Sep 2019 who presented to the ED for evaluation of acute onset abdominal pain and significant diarrhea that began the day of arrival. She noted visiting a neighbor for lunch and came home since she wasn't feeling well when abdominal cramping and diarrhea began. She was near syncopal with blood pressures 80s/40s on EMS arrival. CT abdomen demonstrated small bowel wall thickening without evidence of obstruction, detailed below. Her enteritis was felt to be infectious in nature given the acute onset of symptoms and mild leukocytosis. Lactic acid was as high as 5.1 and resolved. She was started on IV ciprofloxacin and metronidazole along with supportive care with bowel rest, IV hydration and antiemetics. She was evaluted by GI, Dr Sharma, who had performed her last colonoscopy/EGD in 2017. On arrival, a few bowel movements were red-blood tinged. She had not noticed this before. Blood in stool may have been related to enteritis but she was instructed to follow up with Dr Sharma's office to schedule a colonoscopy outpatient. Hemoglobin trending down but stable on day of discharge; recommend following as outpatient and CBC ordered at discharge. Stool culture including C diff were negative so far. Blood cultures and a couple stool studies pending at discharge, will follow to final. Her abdominal pain was improving and her diarrhea was much improved with the therapy outlined above. Her diet was advanced slowly and she was instructed to continue a bland diet at home. She was hemodynamically stable and feeling well enough for discharge 01/25/20 with instructions to follow up with PCP in 1 to 2 weeks and to follow up with Dr Sharma for a colonoscopy. Discharged with oral antibiotics to complete the course (cipro + flagyl). Consultations: -- GI - Dr Eulalio Sharma (2) Acute abdominal pain: Code(s): R10.9 - Unspecified abdominal pain Status: Acute Assessment and Plan: She describes intermittent abdominal cramping and diarrhea about one to two times per month over the last few years which she attributes to irritable bowel syndrome, although suspect her acute symptoms are secondary to above. (3) Vasovagal episode: Code(s): R55 - Syncope and collapse Status: Resolved Assessment and Plan: Low BPs with near syncope with significant BMs on arrival. No further issues with dizziness or syncope today. Blood pressures remained stable. (4) CAD (coronary artery disease): Qualifiers: Associated angina: with stable angina Coronary Disease-Associated Artery/Lesion type: unspecified vessel or lesion type [place] vs. transplanted heart: unspecified whether [place] or transplanted heart Qualified Code(s): I25.118 - Atherosclerotic heart disease of [place] coronary artery with other forms of angina pectoris Code(s): I25.10 - Atherosclerotic heart disease of [place] coronary artery without angina pectoris Status: Chronic Assessment and Plan: With NSTEMI Sep 2019 medically managed following cardiac cath. Stable, no chest pain. Continue home medications, home Plavix held briefly in light of blood in stool, resumed day of discharge since she was not having significant hematochezia - instructed to monitor for S/S of bleeding. (5) Anxiety: Code(s): F41.9 - Anxiety disorder, unspecified
[2020-01-25 14:00] VITALS: BP 146/40; PULSE 69; RESP 18; TEMP 36.2; O2SAT 91
--- NOTE | 2020-01-29 07:48 | PC.NURSE ---
Blood cx are negative.
== END 2020-01-25 15:00 | disposition home or self-care (01) ==
LOC: ANHED 01-23 00:14 → ANH3MEDSUR 01-23 02:15
PROVIDERS: Admitting Provider Internal Medicine; Emergency Provider Emergency Medicine; Visit Provider Physician Assistant
DX: K52.89 Other specified noninfective gastroenteritis and colitis (principal); R19.7 Diarrhea, unspecified; K92.1 Melena; F17.210 Nicotine dependence, cigarettes, uncomplicated; I10 Essential (primary) hypertension; E78.5 Hyperlipidemia, unspecified; F41.8 Other specified anxiety disorders; I25.2 Old myocardial infarction; R55 Syncope and collapse; I25.118 Atherosclerotic heart disease of native coronary artery with other forms of angina pectoris
CPT/HCPCS: 36415; 51701; 74177; 80048; 80053; 81001; 82274; 82948; 83605; 83690; 83735; 84100; 85014; 85018; 85025; 85027; 85610; 85730; 87015; 87040; 87045; 87046; 87269; 87272; 87324; 87427; 89055; 93005; 96361; 96365; 96366; 96367; 96375; 96376; 97110; 97116; 97161; 97165; 99285; A9270; G0378; J0131; J0744; J2270; J2405; J3475; J7030; J7120; Q9967

== ENCOUNTER 2020-01-29 12:21 | Outpatient (CLI) | payer MEDICARE, SELFPAY ==
[2020-01-29 12:58] LABS: Hematocrit 32.9 % (37.0-47.0); Hemoglobin 10.8 g/dL (12.0-15.0); Mean Corpuscular HGB Conc 32.8 g/dl (32-36); Mean Corpuscular Volume 91.4 fl (80-100); Mean Platelet Volume 10.4 fl (7.4-10.4); Platelet Count Result 346 k/mm3 (150-375); Red Cell Distribution Width 13.5 % (11.5-14.5); White Blood Count 9.1 K/mm3 (4.5-10.0)
== END 2020-01-29 12:22 | disposition home or self-care (01) ==
PROVIDERS: Visit Provider Physician Assistant
DX: D64.9 Anemia, unspecified (principal)
CPT/HCPCS: 36415; 85027

== ENCOUNTER 2020-02-05 00:30 | Outpatient (CLI) | payer MEDICARE, SELFPAY ==
[2020-02-05 17:43] LABS: SARS-CoV-2 RNA PCR Negative
== END 2020-02-05 00:31 | disposition home or self-care (01) ==
LOC: ANHCOVIDDT 00:30
PROVIDERS: Visit Provider Internal Medicine Gastroenterology
DX: Z01.818 Encounter for other preprocedural examination (principal); Z11.59 Encounter for screening for other viral diseases
CPT/HCPCS: 87635; C9803; U0003

== ENCOUNTER 2020-02-07 01:08 | Day surgery (SDC) | payer MEDICARE, SELFPAY ==
[2020-01-31 10:55] VITALS: BMI 30.7
--- NOTE | 2020-02-07 07:47 | WPDANESEPPF ---
Anes - Initial Pre Proc Eval Procedure: Operation Date: 02/07/20 10:30 Proposed Procedures p Esophagogastroduodenoscopy & Colonoscopy - Eulalio Sharma MD Date/Time: 02/07/20 07:47 Surgeon: Eulalio Sharma MD Pre Op Diagnosis: diarrhea, GERD Patient Data Age: 74 Gender: F Height: 1.7 m Weight: 89 kg Allergies Allergy/AdvReac Type Severity Reaction Status Date / Time No Known Allergies Allergy Verified 01/31/20 10:49 Home Medications Medication Instructions Recorded Confirmed Type bupropion HCl 100 mg tablet 100 mg PO BID #180 tablet 08/15/19 01/31/20 Rx Benadryl 25 mg BYMOUTH Q4-6H PRN 09/21/19 01/31/20 History amlodipine 5 mg PO DAILY 09/21/19 01/31/20 History aspirin 81 mg PO DAILY 09/21/19 01/31/20 History atorvastatin 10 mg PO DAILY 09/21/19 01/31/20 History folic acid 0.4 mg PO BID 09/21/19 01/31/20 History metoprolol tartrate 12.5 mg PO BID 09/21/19 01/31/20 History omega-3 fatty acids-fish oil 1 cap PO DAILY 09/21/19 01/31/20 History clopidogrel 75 mg PO DAILY #30 tablet 09/24/19 01/31/20 Rx lisinopril 20 mg PO BID #60 tablet 09/24/19 01/31/20 Rx nitroglycerin 0.4 mg SUBLINGUAL DIRECTED PRN 09/24/19 01/31/20 Rx #25 tablet pantoprazole 40 mg PO DAILY #30 tablet 09/24/19 01/31/20 Rx hydrochlorothiazide 25 mg tablet 25 mg PO DAILY #90 tablet 10/21/19 01/31/20 Rx cyclobenzaprine 5 mg PO TID PRN 01/23/20 01/31/20 History paroxetine HCl 20 mg PO DAILY 01/23/20 01/31/20 History omeprazole 40 mg PO DAILY 01/31/20 01/31/20 History ECG: Date of Service: 01/22/20 Procedure(s): CA 12 lead EKG Accession Number(s): [id number] cc: ~ Measurements Intervals [place] Rate: 71 P: 43 MN: 187 QRS: -28 QRSD: 105 T: 29 QT: 419 QTc: 456 Interpretive Statements SINUS RHYTHM WITH MARKED SINUS ARRHYTHMIA BORDERLINE R WAVE PROGRESSION, ANTERIOR LEADS INFERIOR INFARCT, AGE INDETERMINATE BORDERLINE ST ABNORMALITY- HIGH LATERAL LEADS ABNORMAL ECG Electronically Signed On 01-23-2020 7:17:33 CDT by Mian De D.O. Dictated By: Mian De DO 01/22/202027 Patient hx anesthesia problems: none Family hx anesthesia problems: none PMFSH Social History Social History Social History: The patient lives at home with her who is now on hospice. She has 2 daughters and 1 son. The patient has been smoking for approximately 25-30 years. She quit at 1 point and then restarted. Carlene Loja her daughter is a durable power commercial litigation attorney for healthcare. The patient desires to be a full code. Patient used to work for [employer]. She states that she now smokes a cigarette here or there but as of her last hospitalization in October the patient was still smoking 3/4 of a pack a day. Smoking packs per day: 0.75 Smoking cigarettes per day: 15.0 Years smoked: 20 Smoking pack-years: 15.00 Smoking status: Current some day smoker Tobacco type: cigarettes Second hand tobacco smoke exposure: Yes Alcohol intake: current Substance use: never Gender identity (if verbalized by the patient): Male Spiritual care concerns: No Agree to blood products: Yes Anes - Eval Final PreProcedure Day of Procedure 02/07/20 07:47 Patient weight: obese Heart: regular rate and rhythm Lungs: clear to auscultation and normal air movement Airway: Mallampati scale class II Neurological: alert and oriented Last oral intake: >/= 8 hours ASA classification: III Emergent: no Anesthetic plan: proceed Anesthesia type and monitoring: general GIVS Informed Consent: The patient's anesthetic plan and its attendant risks and benefits were discussed with the patient/family/POA
[2020-02-07 10:23] VITALS: BP 143/64; PULSE 89; RESP 16; TEMP 36.5; O2SAT 96; BMI 29.8
[2020-02-07] MEDS: LACTATED RINGERS 1,000 ML 150 ML IV CONT (10:37)
--- NOTE | 2020-02-07 10:55 | WPDGICN ---
Assessment and Plan Assessment and plan (1) Abnormal CT scan: Code(s): R93.89 - Abnormal findings on diagnostic imaging of other specified body structures Status: Acute Assessment and Plan: Recent hospitalization with abdominal pain diarrhea abnormal CT scan suggests is of infectious process in the small bowel. Patient has had improvement of pain on treatment with broad-spectrum antibiotic coverage but diarrhea has persisted plan is for colonoscopy to evaluate more thoroughly. Small-bowel follow-through subsequently may be required depending on findings. High-fiber diet suggested at this time and further recommendations after endoscopy. (2) Diarrhea: Code(s): R19.7 - Diarrhea, unspecified Status: Acute GI Consult Note Consult date/time: 02/07/20 10:55 HPI: Yvonne Cunningham is a 74 year old female Seen in evaluation at the request of Dr. Bourne. Patient recently hospitalized with abdominal pain and diarrhea. A CT scan of the abdomen during hospital stay suggested possible inflammation of the small bowel. It was felt that a intestinal infection was most likely. Play shunt was treated with broad-spectrum antibiotic coverage with plans for outpatient endoscopy. Patient states abdominal pain is abated but diarrhea has persisted over the last 2 weeks since discharge from the hospital. Patient denies any bleeding. She denies any fever. No weight loss. Review of Systems Review of Systems: All systems reviewed & are unremarkable except as noted in HPI and below PMFSH Social History Social History Social History: The patient lives at home with her who is now on hospice. She has 2 daughters and 1 son. The patient has been smoking for approximately 25-30 years. She quit at 1 point and then restarted. Carlene Loja her daughter is a durable power erisa attorney for healthcare. The patient desires to be a full code. Patient used to work for [employer]. She states that she now smokes a cigarette here or there but as of her last hospitalization in October the patient was still smoking 3/4 of a pack a day. Smoking packs per day: 0.75 Smoking cigarettes per day: 15.0 Years smoked: 20 Smoking pack-years: 15.00 Smoking status: Current some day smoker Tobacco type: cigarettes Second hand tobacco smoke exposure: Yes Alcohol intake: current Substance use: never Gender identity (if verbalized by the patient): Male Spiritual care concerns: No Agree to blood products: Yes Meds Home Medications and Allergies Home Medications Medication Instructions Recorded Confirmed Type bupropion HCl 100 mg tablet 100 mg PO BID #180 tablet 08/15/19 02/07/20 Rx Benadryl 25 mg BYMOUTH Q4-6H PRN 09/21/19 02/07/20 History amlodipine 5 mg PO DAILY 09/21/19 02/07/20 History aspirin 81 mg PO DAILY 09/21/19 02/07/20 History atorvastatin 10 mg PO DAILY 09/21/19 02/07/20 History folic acid 0.4 mg PO BID 09/21/19 02/07/20 History metoprolol tartrate 12.5 mg PO BID 09/21/19 02/07/20 History omega-3 fatty acids-fish oil 1 cap PO DAILY 09/21/19 02/07/20 History clopidogrel 75 mg PO DAILY #30 tablet 09/24/19 02/07/20 Rx lisinopril 20 mg PO BID #60 tablet 09/24/19 02/07/20 Rx nitroglycerin 0.4 mg SUBLINGUAL DIRECTED PRN 09/24/19 02/07/20 Rx #25 tablet pantoprazole 40 mg PO DAILY #30 tablet 09/24/19 02/07/20 Rx hydrochlorothiazide 25 mg tablet 25 mg PO DAILY #90 tablet 10/21/19 02/07/20 Rx cyclobenzaprine 5 mg PO TID PRN 01/23/20 02/07/20 History paroxetine HCl 20 mg PO DAILY 01/23/20 02/07/20 History omeprazole 40 mg PO DAILY 01/31/20 02/07/20 History Allergies Allergy/AdvReac Type Severity Reaction Status Date / Time No Known Allergies Allergy Verified 02/07/20 10:21 Vital Signs Vital Signs - 24 hr 02/07/20 10:23 Temperature 36.5 C Pulse Rate 89 Respiratory Rate 16 Blood Pressure 143/64 H Pulse Oximetry 96 Exam
[2020-02-07] MEDS: BENZOCAINE (*SP) 60 ML SPRAY CAN (HURRICAINE) 1 SPRAY MUCOUS MEM (11:48)
[2020-02-07 12:10] VITALS: BP 93/56; PULSE 84; RESP 20; O2SAT 98
[2020-02-07 12:20] VITALS: BP 117/66; PULSE 83; RESP 19; O2SAT 97
[2020-02-07 12:35] VITALS: BP 136/74; PULSE 73; RESP 18; O2SAT 97
== END 2020-02-07 13:14 | disposition home or self-care (01) ==
PROVIDERS: Visit Provider Internal Medicine Gastroenterology
PROC: 0DJ08ZZ Inspection of Upper Intestinal Tract, Via Natural or Artificial Opening Endoscopic (ICD-10-PCS; CPT 43235; principal; 2020-02-07 10:30)
DX: K51.90 Ulcerative colitis, unspecified, without complications (principal); F17.210 Nicotine dependence, cigarettes, uncomplicated; Z79.82 Long term (current) use of aspirin; Z79.02 Long term (current) use of antithrombotics/antiplatelets; E66.9 Obesity, unspecified; Z68.29 Body mass index [BMI] 29.0-29.9, adult
CPT/HCPCS: 45380; 43239; 87635; 88305; C9803; J2704; J7120; U0003

== ENCOUNTER 2020-02-11 08:15 | Outpatient (CLI) | payer MEDICARE, SELFPAY ==
--- NOTE | ~2020-02-11 | XR_ITS ---
EXAMINATION: XR small bowel follow through DATE: 02/11/2020 10:11 INDICATION: Abnormal CT. Diarrhea and colitis. Lower abdominal pain and blood in stools. TECHNIQUE: [employer] Paper Interleafer radiograph(s) of the abdomen was/were obtained. Oral contrast was administered, and sequential radiographs of the abdomen were obtained until oral contrast was noted to be in the proxi mal colon. Spot fluoroscopic images of the small bowel were obtained. Fluoroscopy exposure time was m inutes. COMPARISON: CT dated 01/22/2020 FINDINGS: Transit time from the stomach to proximal colon was approximately 60 minutes. There is normal caliber and mucosal fold pattern throughout the small bowel. Terminal ileum is normal. No tethering or abno rmal mass effect observed upon the small bowel with real-time fluoroscopy. IMPRESSION: 1. Normal small bowel follow-through. Reviewed, dictated and finalized at location A.
== END 2020-02-11 08:16 | disposition home or self-care (01) ==
PROVIDERS: Visit Provider Internal Medicine Gastroenterology
DX: K52.9 Noninfective gastroenteritis and colitis, unspecified (principal)
CPT/HCPCS: 74250

== ENCOUNTER 2020-05-05 16:26 | Outpatient (CLI) | payer MEDICARE, SELFPAY ==
--- NOTE | ~2020-05-05 | MR_ITS ---
EXAMINATION: MR lumbar spine wo con DATE: 05/05/2020 17:29 INDICATION: Low back pain TECHNIQUE: Magnetic resonance imaging (MRI) of the lumbar spine was performed without intravenous con trast. Sequences included sagittal T2-weighted FSE, sagittal T2-weighted FS FSE, sagittal T1-weighted FSE, and axial T2-weighted FSE. COMPARISON: 06/20/2018 FINDINGS: 6 degree lumbar dextrocurvature. 2 mm anterolisthesis L4 on L5 and 2 mm retrolisthesis L5 on S1. Vert ebral body heights are normal. There are Schmorl's nodes along a few of the endplates in the mid and lower lumbar spine. Severe disc height loss at L4-L5 and L5-S1 with endplate remodeling and associate d fibrovascular degenerative endplate changes. Normal heterogeneous marrow signal. Additional moderat e disc height loss at L2-L3 and L3-L4. Mild disc height loss at T11-T12 and T12-L1. The conus medulla ris terminates at T12-L1. There is normal signal in the caudal spinal cord. Paravertebral soft tissue s are unremarkable. The following disc levels are specifically discussed: T12-L1: Disc is bulging. There is mild left and moderate right facet joint osteoarthritis. There is n o neural foraminal stenosis. There is mild central canal stenosis. L1-L2: Disc is mildly bulging. There is mild left and moderate right facet joint osteoarthritis. Ther e is no neural foraminal stenosis. There is minimal central canal stenosis. L2-L3: Disc is bulging with annular fissure. There is hypertrophy of the ligamentum flavum. There is moderate bilateral facet joint osteoarthritis. There is mild bilateral, left greater than right, peggy ral foraminal stenosis. There is mild central canal stenosis. L3-L4: Disc is bulging with annular fissure. There is hypertrophy of the ligamentum flavum. There is mild right and moderate left facet joint osteoarthritis. There is mild left and mild to moderate rig ht neural foraminal stenosis. There is mild to moderate central canal stenosis. L4-L5: Disc is bulging with annular fissure. There is hypertrophy of the ligamentum flavum. There is severe bilateral facet joint osteoarthritis. There is moderate right and moderate to severe left peggy ral foraminal stenosis. There is severe central canal stenosis. L5-S1: Disc is bulging with annular fissure. There is hypertrophy of the ligamentum flavum. There is severe bilateral facet joint osteoarthritis. There is moderate to severe bilateral neural foraminal s tenosis. There is mild to moderate central canal stenosis. IMPRESSION: 1. Interval progression of severe lumbar spondylosis. Reviewed, dictated and finalized at location B.
== END 2020-05-05 16:27 | disposition home or self-care (01) ==
PROVIDERS: PCP Family Medicine; Visit Provider Family Medicine
DX: M47.816 Spondylosis without myelopathy or radiculopathy, lumbar region (principal)
CPT/HCPCS: 72148

== ENCOUNTER 2020-05-15 09:33 | Outpatient (CLI) | payer MEDICARE, SELFPAY ==
--- NOTE | ~2020-05-15 | CT_ITS ---
EXAMINATION: CT lung screening DATE: 05/15/2020 10:01 INDICATION: Personal history of nicotine dependence, current smoker with 40 pack year history TECHNIQUE: Computed tomography (CT) of the chest was performed without intravenous contrast. The dose -length product (DLP) was 146.15 mGy-cm. 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 COMPARISON: None FINDINGS: There is a 3 mm nodule of the right upper lobe on image 59. Several smaller nodules of the lungs measure 1 to 2 mm. There is mild dependent atelectasis. No pleural effusion or pneumothorax is identified. No pathologically enlarged thoracic lymph nodes are identified. Cardiomegaly is noted. Th ere is mild emphysema. Changes of coronary artery bypass are noted. There is a small sliding hiatal h ernia. There is moderate thoracic spondylosis. IMPRESSION: 1. Lung-RADS category 2: Benign appearance or behavior. Continue annual screening with noncontrast lo w-dose chest CT in 12 months. Reviewed, dictated and finalized at location B. IMPRESSION: 1. Lung-RADS category 2: Benign appearance or behavior. Continue annual screeni ng with noncontrast low-dose chest CT in 12 months.
== END 2020-05-15 09:34 | disposition home or self-care (01) ==
PROVIDERS: PCP Family Medicine; Visit Provider Family Medicine
DX: Z87.891 Personal history of nicotine dependence (principal)
CPT/HCPCS: G0297

== ENCOUNTER 2020-05-18 09:32 | Outpatient (CLI) | payer MEDICARE, SELFPAY ==
--- NOTE | ~2020-05-18 | MM_ITS ---
EXAMINATION: MM screening madeleine BI w richy HISTORY: Screening mammogram TECHNIQUE: Craniocaudal and mediolateral oblique 3-D tomosynthesis images were obtained and synthetic 2-D images were generated. CAD analysis was submitted and interpreted. COMPARISON: 07/07/2017, 01/27/2011 bilateral digital screening mammogram examinations BREAST PARENCHYMAL COMPOSITION: There are scattered areas of fibroglandular density. FINDINGS: There is no evidence of suspicious mass, calcification, or architectural distortion to sugg est malignancy in either breast. There has been no suspicious interval change. IMPRESSION: 1. No mammographic evidence of malignancy. 2. Recommend routine screening mammography in one year. BI-RADS Category 1: Negative Reviewed, dictated and finalized at location A.
== END 2020-05-18 09:33 | disposition home or self-care (01) ==
LOC: ANHIMG 09:34
PROVIDERS: PCP Family Medicine; Visit Provider Family Medicine
DX: Z12.31 Encounter for screening mammogram for malignant neoplasm of breast (principal)
CPT/HCPCS: 77063; 77067

== ENCOUNTER 2020-06-29 12:30 | Outpatient (CLI) | payer MEDICARE, SELFPAY ==
--- NOTE | ~2020-06-29 | XR_ITS ---
XR lumbar spine 2-3V DATE: 06/29/2020 12:49 INDICATION: Lumbar spinal fusion on 06/17/2020 TECHNIQUE: AP and lateral and coned lateral lumbosacral views COMPARISON: None FINDINGS: Diffuse osteopenia. There is moderate degenerative disc disease L2-3, mild degenerative disease at L3-4. There is severe degenerative disease at L4-5 and L5-S1. Status post posterior instrumented spinal fusion at L4-S1, with bone grafts at the posterior elements as well. No fracture or spondylolisthesis or bone destruction. The included lower thoracic and lumbar pedicles appear intact. The sacroiliac joints appear normal. IMPRESSION: Posterior spinal fusion at L4-S1 Multilevel degenerative disc disease Osteopenia Reviewed, dictated and finalized at location A.
== END 2020-06-29 12:31 | disposition home or self-care (01) ==
LOC: ANHIMG 12:35
PROVIDERS: PCP Family Medicine; Visit Provider Neurological Surgery
DX: Z98.1 Arthrodesis status (principal); M51.36 Other intervertebral disc degeneration, lumbar region; M85.88 Other specified disorders of bone density and structure, other site
CPT/HCPCS: 72100

== ENCOUNTER 2020-07-09 10:25 | Outpatient (CLI) | payer MEDICARE, SELFPAY ==
[2020-07-09 10:57] LABS: Basophils Absolute Auto 0.1 K/mm3 (0.0-0.1); Eosinophils Absolute Auto 0.2 K/mm3 (0-0.3); Eosinophils Percent Auto 2.8 % (0-4.4); Hematocrit 31.7 % (37.0-47.0); Hemoglobin 9.7 g/dL (12.0-15.0); Immature Granulocyte Absolute 0.02 K/mm3 (0.00-0.031); Immature Granulocyte Percent A 0.3 % (0-0.5); Lymphocytes Absolute Auto 1.09 K/mm3 (0.9-3.2); Mean Corpuscular HGB Conc 30.6 g/dl (32-36); Mean Corpuscular Hemoglobin 26.9 pg (26-34); Mean Corpuscular Volume 87.8 fl (80-100); Mean Platelet Volume 10.8 fl (7.4-10.4); Monocytes Absolute Auto 0.5 K/mm3 (0.1-0.6); Monocytes Percent Auto 8.8 % (2.6-8.5); Neutrophils Absolute Auto 4.2 K/mm3 (1.3-6.7); Neutrophils Percent Auto 69.1 % (45.5-73.1); Platelet Count Result 331 k/mm3 (150-375); Red Blood Count 3.61 M/mm3 (4.2-5.4); Red Cell Distribution Width 15.7 % (11.5-14.5); White Blood Count 6.1 K/mm3 (4.5-10.0)
[2020-07-09 11:22] LABS: Alanine Aminotransferase 14 U/L (4-35); Albumin Level 3.6 g/dL (3.5-5.1); Alkaline Phosphatase 103 U/L (38-126); Anion Gap 7 mmol/L (8-16); Aspartate Amino Transferase 27 U/L (14-36); Bilirubin,Total 0.5 mg/dL (0.2-1.3); Blood Urea Nitrogen 14 mg/dL (7-17); Carbon Dioxide 29 mmol/L (22-30); Chloride 103 mmol/L (98-107); Cholesterol 135 mg/dL (0-200); Estimated Glomerular Filt Rate > 60; Glucose 106 mg/dL (65-105); HDL Direct 29 mg/dL; Potassium 4.9 mmol/L (3.4-5.0); Sodium 139 mmol/L (137-145); Triglycerides 109 mg/dL (<150)
[2020-07-09 11:31] LABS: LDL Cholesterol Direct 88 mg/dL
== END 2020-07-09 10:26 | disposition home or self-care (01) ==
PROVIDERS: PCP Family Medicine; Visit Provider Family Medicine
DX: E53.8 Deficiency of other specified B group vitamins (principal); E78.5 Hyperlipidemia, unspecified; I10 Essential (primary) hypertension
CPT/HCPCS: 36415; 80053; 80061; 82607; 84443; 85025

== ENCOUNTER 2020-08-21 12:52 | Outpatient (CLI) | payer MEDICARE, SELFPAY ==
--- NOTE | ~2020-08-21 | XR_ITS ---
XR lumbar spine 2-3V DATE: 08/21/2020 13:24 INDICATION: Lumbar spinal fusion TECHNIQUE: AP, lateral and coned lateral lumbosacral views COMPARISON: 06/29/2020 lumbar spine FINDINGS: Status post posterior spinal surgical fusion at L4-S1. There is moderate degenerative disc disease at L2-3, L3-4 and severe degenerative disc disease at L4- 5 and L5-S1. No fracture or bone destruction. The pedicles are intact. The sacroiliac joints appear normal. Diffuse osteopenia. There is aortic and iliac arterial calcification. There is a prominent amount of fecal material in the colon. IMPRESSION: Diffuse osteopenia Status post posterior spinal surgical fusion at L4-S1 Multilevel degenerative disc disease Reviewed, dictated and finalized at location B. ET WRITER
== END 2020-08-21 12:53 | disposition home or self-care (01) ==
LOC: ANHIMG 13:05
PROVIDERS: PCP Family Medicine; Visit Provider Neurological Surgery
DX: Z98.1 Arthrodesis status (principal); M85.88 Other specified disorders of bone density and structure, other site; M51.36 Other intervertebral disc degeneration, lumbar region
CPT/HCPCS: 72100

== ENCOUNTER 2020-12-11 11:23 | Outpatient (CLI) | payer MEDICARE, SELFPAY ==
[2020-12-11 12:08] LABS: Basophils Absolute Auto 0.1 K/mm3 (0.0-0.1); Basophils Percent Auto 1.3 % (0.2-1.2); Eosinophils Absolute Auto 0.1 K/mm3 (0-0.3); Eosinophils Percent Auto 2.1 % (0-4.4); Hematocrit 41.3 % (37.0-47.0); Hemoglobin 13.7 g/dL (12.0-15.0); Immature Granulocyte Absolute 0.01 K/mm3 (0.00-0.031); Immature Granulocyte Percent A 0.2 % (0-0.5); Lymphocytes Absolute Auto 1.03 K/mm3 (0.9-3.2); Lymphocytes Percent Auto 19.4 % (18.3-44.2); Mean Corpuscular HGB Conc 33.2 g/dl (32-36); Mean Corpuscular Hemoglobin 30.8 pg (26-34); Mean Corpuscular Volume 92.8 fl (80-100); Mean Platelet Volume 12.1 fl (7.4-10.4); Monocytes Absolute Auto 0.5 K/mm3 (0.1-0.6); Neutrophils Absolute Auto 3.6 K/mm3 (1.3-6.7); Platelet Count Result 182 k/mm3 (150-375); Red Blood Count 4.45 M/mm3 (4.2-5.4); Red Cell Distribution Width 14.3 % (11.5-14.5); White Blood Count 5.3 K/mm3 (4.5-10.0)
[2020-12-11 12:23] LABS: Alanine Aminotransferase 20 U/L (4-35); Albumin Level 4.3 g/dL (3.5-5.1); Alkaline Phosphatase 98 U/L (38-126); Anion Gap 9 mmol/L (8-16); Aspartate Amino Transferase 26 U/L (14-36); Bilirubin,Total 0.3 mg/dL (0.2-1.3); Blood Urea Nitrogen 12 mg/dL (7-17); Calcium 9.4 mg/dL (8.4-10.2); Carbon Dioxide 26 mmol/L (22-30); Chloride 105 mmol/L (98-107); Cholesterol 148 mg/dL (0-200); Estimated Glomerular Filt Rate > 60; Glucose 136 mg/dL (65-105); HDL Direct 31 mg/dL; Sodium 140 mmol/L (137-145); Triglycerides 124 mg/dL (<150)
[2020-12-11 12:34] LABS: LDL Cholesterol Direct 92 mg/dL
== END 2020-12-11 11:24 | disposition home or self-care (01) ==
PROVIDERS: PCP Family Medicine; Visit Provider Nurse Practitioner
DX: I10 Essential (primary) hypertension (principal); E78.5 Hyperlipidemia, unspecified; E55.9 Vitamin D deficiency, unspecified; E53.8 Deficiency of other specified B group vitamins
CPT/HCPCS: 36415; 72100; 80053; 80061; 82306; 82607; 85025

== ENCOUNTER 2020-12-11 11:30 | Outpatient (CLI) | payer MEDICARE, SELFPAY ==
--- NOTE | ~2020-12-11 | XR_ITS ---
EXAMINATION: XR lumbar spine 2-3V DATE: 12/11/2020 12:06 INDICATION: Lumbar spine fusion TECHNIQUE: Anteroposterior and lateral views of the lumbar spine, and cone-down lateral view of the l umbosacral junction were obtained. COMPARISON: 08/21/2020 FINDINGS: There are changes of posterior fusion from L4 through S1. There are 3 mm of stable anteroli sthesis of L4 on L5. There is severe loss of intervertebral disc space height at L4-5 and L5-S1, unch anged. No fracture is identified. Vertebral body heights are maintained. There is mild loss of interv ertebral disc space height at L2-3 and L3-4. Calcified atherosclerosis is noted. IMPRESSION: 1. Changes of posterior fusion from L4 through S1 without significant interval change. Severe disc sp vaishnavi narrowing at L4-5 and L5-S1. Reviewed, dictated and finalized at location A. IMPRESSION: 1. Changes of posterior fusion from L4 through S1 without significant interval change. Severe disc space narrowing at L4-5 and L5-S1.
== END 2020-12-11 11:31 | disposition home or self-care (01) ==
PROVIDERS: PCP Family Medicine; Visit Provider Neurological Surgery
DX: Z95.1 Presence of aortocoronary bypass graft (principal)
CPT/HCPCS: 72100

== ENCOUNTER 2021-03-25 14:41 | Inpatient (IN) | payer MEDICARE, SELFPAY ==
[2021-03-25] VITALS (19 sets, daily range): BP systolic 166–204; BP diastolic 70–90; PULSE 68–78; RESP 13–22; TEMP 36.2–36.9; O2SAT 90–100; BMI 34.8
--- NOTE | ~2021-03-25 | CT_ITS ---
EXAMINATION: CT brain wo con DATE: 03/25/2021 14:48 INDICATION: Left-sided hemiparesis with and left-sided facial droop and slurred speech TECHNIQUE: Computed tomography (CT) of the head was performed without intravenous contrast. Sagittal and coronal reconstructions were performed. The mA was adjusted according to patient size. Iterative reconstruction technique was employed. The dose-length product was 605.33 mGy-cm. COMPARISON: None FINDINGS: Region of mildly decreased attenuation involving portion of the right lentiform nucleus as well as th e body of the caudate nucleus which is suspicious for acute infarct. No acute intracranial hemorrhage or abnormal extra axial fluid collection. More typical pattern of mild scattered periventricular pre dominant white matter hypoattenuation consistent with chronic small vessel ischemic disease. Ventric les are normal and symmetric. No mass/mass effect. Changes of bilateral intraocular lens replacement. The orbits, paranasal sinuses and mastoid air cells are normal. Intracranial calcified cerebral athe rosclerosis is noted. IMPRESSION: 1. Region of decreased attenuation at the right lentiform and caudate nuclei suspicious for acute inf arction. Per stroke protocol I discussed these findings with Dr. Jaramillo at 2:50 PM Reviewed, dictated and finalized at location A. IMPRESSION: 1. Region of decreased attenuation at the right lentiform and caudate nuclei yuen spicious for acute infarction. Per stroke protocol I discussed these findings w alyssa Jaramillo at 2:50 PM
--- NOTE | ~2021-03-25 | CT_ITS ---
EXAMINATION: CTA brain carotid EXAM DATE: 03/25/2021 15:53 INDICATION: Slurred speech, left facial droop and hemiparesis. TECHNIQUE: Spiral CTA of the carotid arteries was performed with intravenous injection 100 cc of Om nipaque 350. Axial, coronal, sagittal reformatted images reviewed. Additional reformatted images cre ated on dedicated 3-D workstation. NASCET comparable standard used to assess the degree of arterial stenosis. Spiral CT angiogram cerebral arteries performed with the same intravenous injection of con trast. Source images of the brain CTA transferred to dedicated workstation for 3-D rotational image c reation. Coronal, sagittal maximum intensity pixel images also reviewed. The dose-length product (D LP) for this examination was 1058.00 mGy-cm. The exposure was tailored according to patient size, a nd iterative reconstruction (ASIR) was used as additional dose reduction technique. Correlation is ma de to head CT earlier same day. FINDINGS: Acute infarction involving most of the right lentiform nucleus, caudate body. There is mild bilateral carotid bulb arterial sclerosis with 0% stenosis. The right vertebral artery is dominant. There is no carotid or vertebral basilar arterial dissection or fibromuscular dysplasia . There is a 2.5 mm aneurysm at the left MCA trifurcation. There is symmetric cerebral artery arboriz ation. The sagittal, transverse and sigmoid sinuses enhance normally, no venous sinus thrombosis. Int ernal cerebral veins also enhance normally. IMPRESSION: 1. Acute right lentiform nucleus, caudate body infarction. 2. 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 3. Bilateral carotid bulb 0% stenosis. Reviewed, dictated and finalized at location A.
--- NOTE | ~2021-03-25 | XR_ITS ---
EXAMINATION: XR chest 1V portable EXAM DATE: 03/25/2021 15:14 INDICATION: left side flaccid TECHNIQUE: Portable AP frontal chest x-ray was obtained. Comparison is made to prior examination from 06/21/2020. FINDINGS: Sternotomy wires are present without findings to suggest sternal dehiscence. Mild cardiomeg gt. No confluent consolidation, pneumothorax or pleural effusion suspected. There are bony degenerat sergey changes. IMPRESSION: Mild cardiomegaly. Reviewed, dictated and finalized at location A. IMPRESSION: Mild cardiomegaly.
--- NOTE | ~2021-03-25 | MR_ITS ---
EXAMINATION: MR brain/brain stem wo/w con DATE: 03/26/2021 08:48 INDICATION: Acute stroke TECHNIQUE: Magnetic resonance imaging (MRI) of the brain and brainstem was performed without and with 20 mL Multihance intravenous contrast. Sequences included sagittal and axial T1-weighted SE, axial d iffusion-weighted FS SE, axial T2*-weighted GRE, axial T2-weighted FLAIR, and axial T2-weighted FSE. Postcontrast axial and coronal T1-weighted SE was obtained. Apparent diffusion coefficient (ADC) maps were created. COMPARISON: Head CT and CT angiogram dated 03/25/2021 FINDINGS: Region of restricted diffusion associated increased T2 signal consistent with acute to early subacute infarct involving the majority of the right lentiform nucleus, a significant portion of the body of the right caudate nucleus, portions of the intervening anterior limb of the internal capsule and a sm all portion of the overlying external capsule. There is an additional small focus of likely artifactu al increased signal at the tip of a gyrus at the posterior right temporal lobe on diffusion-weighted imaging without corresponding increased T2 signal or restricted diffusion on ADC map. No intracranial hemorrhage or abnormal intracranial mass lesion. There is additional mild scattered nonspecific incr eased T2-weighted signal intensity in the cerebral white matter, predominantly involving the deep and periventricular white matter. There are no intraparenchymal signal abnormalities seen on the other p ulse sequences. The ventricles are symmetric and normal in size. There is however some mass effect up on the lateral aspect of the body of the anterior horn of the right lateral ventricle resulting from cytotoxic edema from the right basal ganglia infarct. There are no abnormal extra-axial fluid collect ions. Flow voids are seen in the cerebral arteries on the T2-weighted sequences consistent with their expected patency. Right vertebral artery is dominant. Changes of bilateral intraocular lens replacem ent. Visualized orbits and soft tissues are unremarkable. There are no areas of abnormal enhancement on the post contrast images. IMPRESSION: 1. Acute to subacute right basal ganglia infarct involving nearly the entire lentiform nucleus, the b beulah of the caudate nucleus and lateral portion of the internal and external capsule. Reviewed, dictated and finalized at location A. IMPRESSION: 1. Acute to subacute right basal ganglia infarct involving nearly the entire le ntiform nucleus, the body of the caudate nucleus and lateral portion of the int ernal and external capsule.
--- NOTE | 2021-03-25 14:44 | ECG_ITS ---
Measurements Intervals [place] Rate: 67 P: 60 ND: 184 QRS: -12 QRSD: 114 T: 81 QT: 389 QTc: 413 Interpretive Statements SINUS RHYTHM INFERIOR INFARCT, AGE INDETERMINATE BORDERLINE ST-T WAVE ABNORMALITY- ANTEROLAT/HIGH LAT LEADS BASELINE ARTIFACT- I, II, AVR ABNORMAL ECG Electronically Signed On 03-25-2021 15:13:44 CDT by Mian De D.O.
[2021-03-25 14:56] LABS: Glucose Point of Care 115 mg/dl (65-105)
[2021-03-25 15:06] LABS: Basophils Absolute Auto 0.1 K/mm3 (0.0-0.1); Basophils Percent Auto 0.6 % (0.2-1.2); Eosinophils Percent Auto 0.1 % (0-4.4); Hematocrit 37.5 % (37.0-47.0); Hemoglobin 12.6 g/dL (12.0-15.0); Immature Granulocyte Absolute 0.02 K/mm3 (0.00-0.031); Immature Granulocyte Percent A 0.2 % (0-0.5); Lymphocytes Absolute Auto 0.84 K/mm3 (0.9-3.2); Lymphocytes Percent Auto 10.3 % (18.3-44.2); Mean Corpuscular HGB Conc 33.6 g/dl (32-36); Mean Corpuscular Hemoglobin 31.5 pg (26-34); Mean Corpuscular Volume 93.8 fl (80-100); Monocytes Absolute Auto 0.6 K/mm3 (0.1-0.6); Neutrophils Absolute Auto 6.6 K/mm3 (1.3-6.7); Neutrophils Percent Auto 81.8 % (45.5-73.1); Platelet Count Result 203 k/mm3 (150-375); Red Cell Distribution Width 12.6 % (11.5-14.5); White Blood Count 8.1 K/mm3 (4.5-10.0)
[2021-03-25 15:15] LABS: Prothrombin Time 12.7 Seconds (11.1-14.7)
[2021-03-25 15:16] LABS: Anion Gap 9 mmol/L (8-16); Blood Urea Nitrogen 17 mg/dL (7-17); Calcium 9.9 mg/dL (8.4-10.2); Carbon Dioxide 25 mmol/L (22-30); Chloride 106 mmol/L (98-107); Estimated CRCL calculation 76 ml/min; Estimated Glomerular Filt Rate > 60; Glucose 115 mg/dL (65-110); Sodium 140 mmol/L (137-145)
--- NOTE | 2021-03-25 15:21 | ED.NEUROSD ---
HPI - Neuro Symptoms/Deficit General Chief Complaint: Suspected CVA Stated Complaint: CVA symptoms Source: patient, family, EMS and RN notes reviewed Mode of arrival: EMS Limitations: no limitations History of Present Illness HPI Narrative: Patient is 76 years old white female presented with stroke symptoms. Patient lives alone, went to bed last night at 11 PM, 3:00 patient tried to get out of bed to go to the bathroom, could not get up, rolled over and fell to the floor. Patient could not manage to get up or do anything. 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 Patient is vaccinated for COVID-19. Patient is a smoker, does not drink or uses drugs. Related Data Home Medications Medication Instructions Recorded Confirmed Benadryl 25 mg BYMOUTH Q4-6H PRN 09/21/19 11/23/20 amlodipine 5 mg PO DAILY 09/21/19 11/23/20 aspirin 81 mg PO DAILY 09/21/19 11/23/20 atorvastatin 10 mg PO DAILY 09/21/19 11/23/20 folic acid 0.4 mg PO BID 09/21/19 11/23/20 metoprolol tartrate 12.5 mg PO BID 09/21/19 11/23/20 omega-3 fatty acids-fish oil 1 cap PO DAILY 09/21/19 11/23/20 Allergies Allergy/AdvReac Type Severity Reaction Status Date / Time No Known Allergies Allergy Verified 11/23/20 14:27 Review of Systems Review of Systems: Narrative: CONSTITUTIONAL: Denies fever, chills, or sweats. EYES: Denies visual changes, redness, or discharge. ENT: Denies rhinorrhea, congestion, sore throat, or otalgia. CARDIOVASCULAR: Denies chest pain, palpitations, or edema. RESPIRATORY: Denies cough or dyspnea. GASTROINTESTINAL: Denies abdominal pain, nausea, vomiting, or diarrhea. GENITOURINARY: Denies dysuria or hematuria. SKIN: Denies rash or itching. MUSCULOSKELETAL: Denies back pain, joint pain, or myalgia. NEUROLOGIC: Denies headache, numbness, or weakness. PSYCHIATRIC: Denies anxiety or depression. [facility] Past Medical History Medical History Anxiety Arthritis Arthritis, lumbar spine BMI 29.0-29.9,adult CAD (coronary artery disease) Depression GERD (gastroesophageal reflux disease) Heart attack sep 2019 Heart disease HLD (hyperlipidemia) HTN (hypertension) Non-STEMI (non-ST elevated myocardial infarction) September 2019 with left heart catheterization demonstrating modest left main disease, total occlusion of LAD and right coronary artery proximally, modest 40-50% stenosis of the 1st obtuse marginal branch of the circumflex, remaining patency of GARCIA to LAD, patency of saphenous vein graft to RCA, occlusion of the proximal aspect of the vein graft to the 1st obtuse marginal branch circumflex, mild left ventricular systolic dysfunction with posterior basal akinesis with good ejection fraction with medical therapy recommended Tobacco use Surgical History Surgical History H/O lumpectomy [place] left breast - History of back surgery (~06/18/20) History of bladder surgery Tied up - History of carpal tunnel surgery Left wrist History of carpal tunnel surgery of left wrist 2008 History of facial surgery 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 The patient has been smoking for approximately 25-30 years. She quit at 1 p
[2021-03-25 15:27] LABS: Troponin I < 0.012 ng/mL (0.000-0.034)
[2021-03-25] MEDS: ASPIRIN 325 MG TABLET PO (15:59)
[2021-03-25 16:14] LABS: Creatine Kinase 210 U/L (30-135)
--- NOTE | 2021-03-25 18:45 | PM.IMHP ---
H&P: HPI History of Present Illness Date/Time: 03/25/21 18:45 Chief Complaint: Stroke symptoms. Narrative: This is a 76-year-old female smoker with coronary artery disease, hypertension, and hyperlipidemia who presented to the emergency department earlier today via EMS from home for evaluation of stroke symptoms. The patient lives at home alone and was in her usual state of health when she went to bed last night at 23:00. At around 03:00 she got up to use the restroom but she was having a difficult time rolling herself over due to left upper extremity weakness and in fact she fell onto the floor where she remained until her sister found her today at approximately 13:00. Brain CT showed an acute right lentiform nucleus, caudate body infarction and she is being admitted in this section. The weakness in her left upper extremity is most severe in the hand. She has also noticed mild left-sided facial droop and perhaps some slurred speech. She denies vertigo, auditory and visual changes, palpitations, and history of atrial fibrillation. She did not sustain any injuries when she fell to the floor earlier today, specifically denying head trauma and loss of consciousness. Review of Systems Review of Systems: Narrative: Twelve systems were reviewed with pertinent positives and negatives as per HPI. No fever, chills, or sweats. No recent cold or flu symptoms. She denies exposure to those positive for COVID-19. No nausea, vomiting, or diarrhea. No dysuria. Except as documented, all other systems were reviewed and are negative. [facility] Past Medical History Medical History Anxiety Arthritis B12 deficiency Coronary artery disease Depression Gastroesophageal reflux disease Hyperlipidemia Hypertension Non-STEMI (non-ST elevated myocardial infarction) September 2019 with left heart catheterization demonstrating modest left main disease, total occlusion of LAD and right coronary artery proximally, modest 40-50% stenosis of the 1st obtuse marginal branch of the circumflex, remaining patency of GARCIA to LAD, patency of saphenous vein graft to RCA, occlusion of the proximal aspect of the vein graft to the 1st obtuse marginal branch circumflex, mild left ventricular systolic dysfunction with posterior basal akinesis with good ejection fraction with medical therapy recommended. 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 She has 2 daughters and 1 son. Patient used to work for [employer]. The patient has been smoking for approximately 25-30 years. She quit at 1 point and then restarted. She is currently smoking 1/3 of a pack per day. Carlene Loja, her daughter, is her durable power title attorney for healthcare. The patient desires to be a full code. Smoking packs per day: 1 Smoking cigarettes per day: 20.0 Years smoked: 30 Smoking pack-years: 30.00 Smoking status: Current every day smoker Tobacco type: cigarettes Additional smoking assessment comments: patient states she smokes 3/4 pac
--- NOTE | 2021-03-25 19:00 | ADMGEN ---
This patient, Yvonne Cunningham, was admitted to Medical Room 345-. Patient/family oriented to hospital policies and general routines including ID bracelet, bed and alarms, visiting hours, pain management, procedures, bathroom and other care routines, personal items, smoking policy, room service/diet, and visiting hours. Information on how to activate the Rapid Response Team has been discussed. Patient/Family are encouraged to report perceived risks to care and to ask questions if they do not understand what they are told or what they should do.
[2021-03-25] MEDS: METOPROLOL TARTRATE 12.5 MG TABLET PO (22:37)
[2021-03-25] MEDS: buPROPion HCL 100 MG TABLET PO (22:38)
[2021-03-25] MEDS: amLODIPine BESYLATE 5 MG TABLET PO (22:38)
[2021-03-26] VITALS (10 sets, daily range): BP systolic 136–190; BP diastolic 43–160; PULSE 51–70; RESP 14–18; TEMP 35.7–36.7; O2SAT 96–100
[2021-03-26 06:33] LABS: Hematocrit 34.5 % (37.0-47.0); Hemoglobin 11.6 g/dL (12.0-15.0); Mean Corpuscular HGB Conc 33.6 g/dl (32-36); Mean Corpuscular Hemoglobin 31.8 pg (26-34); Mean Corpuscular Volume 94.5 fl (80-100); Mean Platelet Volume 11.9 fl (7.4-10.4); Platelet Count Result 183 k/mm3 (150-375); Red Blood Count 3.65 M/mm3 (4.2-5.4); Red Cell Distribution Width 12.9 % (11.5-14.5); White Blood Count 6.1 K/mm3 (4.5-10.0)
[2021-03-26 06:45] LABS: Alanine Aminotransferase 27 U/L (4-35); Albumin Level 3.7 g/dL (3.5-5.1); Alkaline Phosphatase 91 U/L (38-126); Anion Gap 5 mmol/L (8-16); Aspartate Amino Transferase 34 U/L (14-36); Bilirubin,Total 0.5 mg/dL (0.2-1.3); Blood Urea Nitrogen 12 mg/dL (7-17); Calcium 9.5 mg/dL (8.4-10.2); Carbon Dioxide 30 mmol/L (22-30); Chloride 104 mmol/L (98-107); Cholesterol 149 mg/dL (0-200); Creatine Kinase 508 U/L (30-135); Estimated CRCL calculation 66 ml/min; Estimated Glomerular Filt Rate > 60; Glucose 104 mg/dL (65-110); HDL Direct 30 mg/dL; Potassium 3.2 mmol/L (3.4-5.0); Sodium 139 mmol/L (137-145); Triglycerides 122 mg/dL (<150)
[2021-03-26 06:56] LABS: LDL Cholesterol Direct 83 mg/dL
[2021-03-26] MEDS: METOPROLOL TARTRATE 12.5 MG TABLET PO ×2 (09:21→20:16)
[2021-03-26] MEDS: CYANOCOBALAMIN 1,000 MCG TABLET 1000 MCG PO (09:21)
[2021-03-26] MEDS: GABAPENTIN 300 MG CAPSULE PO (09:21)
[2021-03-26] MEDS: PARoxetine 20 MG TABLET 40 MG PO (09:21)
[2021-03-26] MEDS: buPROPion HCL 100 MG TABLET PO ×2 (09:22→16:57)
[2021-03-26] MEDS: PANTOPRAZOLE 40 MG TABLET PO (09:22)
[2021-03-26] MEDS: FOLIC ACID 0.4 MG TABLET PO ×2 (09:22→16:57)
[2021-03-26] MEDS: ASPIRIN 81 MG CHEWABLE TABLET 324 MG PO (09:22)
[2021-03-26] MEDS: FERROUS SULFATE 324 MG TABLET PO ×2 (09:22→16:57)
[2021-03-26] MEDS: OMEGA 3 POLYUNSAT FATTY ACIDS 1 GM CAP PO (09:22)
[2021-03-26] MEDS: ACETAMINOPHEN 325 MG TABLET 650 MG PO (09:38)
[2021-03-26] MEDS: ATORVASTATIN 40 MG TABLET PO (10:46)
[2021-03-26 10:56] LABS: Magnesium 2.1 mg/dL (1.6-2.3)
--- NOTE | 2021-03-26 11:03 | WPDNEURCNPN ---
Assessment and Plan Additional Plan evaluation documented abnormal MRI with right basal gangliar infarct involving the entire lentiform nucleus the body of the caudate nucleus and lateral portion of the internal and external capsules CTA documented the again acute right lentiform nucleus and caudate body infarction with left MCA trifurcation 2.5mm aneurysm without carotid bulb stenosis and chest x-ray with mild cardiomegaly for the sake of interest initial CT scan of the head was also abnormal patient is receiving aspirin will benefit from the complete evaluation and physical therapy, will need the echocardiogram as well Consult date: 03/26/21 Time Seen: 10:45 HPI: Yvonne Cunningham is a 76 year old female admitted to the hospital for the stroke in addition to the ongoing history of 1. Hypertension 2. Coronary artery disease 3. Arthritis 4. GERD 5. Hypertension 7. History of multiple surgeries as outlined Review of Systems Review of Systems: All systems reviewed & are unremarkable except as noted in HPI and below PMFSH Past Medical History Medical History Anxiety Arthritis B12 deficiency Coronary artery disease Depression Gastroesophageal reflux disease Hyperlipidemia Hypertension Non-STEMI (non-ST elevated myocardial infarction) September 2019 with left heart catheterization demonstrating modest left main disease, total occlusion of LAD and right coronary artery proximally, modest 40-50% stenosis of the 1st obtuse marginal branch of the circumflex, remaining patency of GARCIA to LAD, patency of saphenous vein graft to RCA, occlusion of the proximal aspect of the vein graft to the 1st obtuse marginal branch circumflex, mild left ventricular systolic dysfunction with posterior basal akinesis with good ejection fraction with medical therapy recommended. 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 She has 2 daughters and 1 son. Patient used to work for [employer] home [employer]. The patient has been smoking for approximately 25-30 years. She quit at 1 point and then restarted. She is currently smoking 1/3 of a pack per day. Carlene Loja, her daughter, is her durable power flying i instructor for healthcare. The patient desires to be a full code. Smoking packs per day: 1 Smoking cigarettes per day: 20.0 Years smoked: 30 Smoking pack-years: 30.00 Smoking status: Current every day smoker Tobacco type: cigarettes Additional smoking assessment comments: patient states she smokes 3/4 packs/day Alcohol intake: current Substance use: never Living arrangements: alone Occupation/Education: retired Gender identity (if verbalized by the patient): Female Spiritual care concerns: No Meds Home Medications and Allergies Home Medications Medication Instructions Recorded Confirmed Type Benadryl 25 mg BYMOUTH Q4-6H PRN 09/21/19 03/25/21 History amlodipine 5 mg PO DAILY 09/21/19 03/25/21 History aspirin 81 mg PO DAILY 09/21/19 03/25/21 History atorvastatin 10 mg PO DAILY 09/21/19 03/25/21
--- NOTE | 2021-03-26 11:23 | PC.NURSE ---
On 03/26/21, the student, [Maureen Moseley], provided care and completed [facility] documentation on this patient. I have reviewed the student's documentation and agree with the findings.
--- NOTE | 2021-03-26 13:39 | PM.IMPN ---
Progress Note: A&P Assessment and Plan (1) Acute cerebrovascular accident (CVA): Code(s): I63.9 - Cerebral infarction, unspecified Status: Acute Assessment and Plan: The patient presented tod the ER for evaluation of left sided weakness, facial droop, slurred speech which began at 0300 03/25/21 while getting up from bed to go to the bathroom. She fell on the ground and was unable to get herself up. She was on the ground for approximately 10 hours until her family found her and called EMS and she came to the ER for further evaluation. She was not a candidate for tPA. I suspect her stroke is likely due to underlying hypertension and tobacco abuse. CTA of the head and neck did not show any acute findings or significant carotid stenosis Echocardiogram has been ordered and pending. Tele shows NSR with HR at 53 bpm bradycardic, with few PVCs and PACs, no acute arrhythmia noted. Continue monitoring on telemetry overnight to rule out cardiac dysrhythmia. She is on aspirin 81 mg daily and has previously been on Plavix and tolerated that well. I will defer to Dr. Segovia as to whether he wants to start Plavix or recommends something else. Most likely due to high NIH Stroke Scale she will need Plavix + ASA upon discharge for 28 days, then switch to a single agent. But will talk with Neurology about this prior to discharge. PT/OT/ ST consulted. Continue monitoring. If patient is stable for discharge she will need outpatient PT/OT/SP vs SNF vs Acute Rehab would be best (2) Middle cerebral artery aneurysm: Code(s): I67.1 - Cerebral aneurysm, nonruptured Status: Acute Assessment and Plan: Incidentally she was found to have a small 2.5 mm aneurysm at the trifurcation of the left middle cerebral artery. Patient mentions that her 47-year-old son and 2 aunts from cerebral aneurysms. This is likely not big enough for intervention but she should probably be followed for this as an outpatient. (3) Hypertension: Code(s): I10 - Essential (primary) hypertension Status: Acute Assessment and Plan: Blood pressures were reviewed, this morning 161/43 and have been running quite high. Continue on home medications, allow permissive HTN. Make adjustments if necessary prior to discharge. (4) Hyperlipidemia: Code(s): E78.5 - Hyperlipidemia, unspecified Status: Acute Assessment and Plan: LDL is 83, should be less than 70. Otherwise well controlled. Increasing atorvastatin from 10 mg to high dose 40 mg due to CVA. (5) Tobacco use: Code(s): Z72.0 - Tobacco use Status: Acute Assessment and Plan: Smoking cessation is imperative and was discussed. (6) Coronary artery disease: Code(s): I25.10 - Atherosclerotic heart disease of [place] coronary artery without angina pectoris Status: Acute Assessment and Plan: No chest pain symptoms, palpitations. (7) Hypokalemia: Code(s): E87.6 - Hypokalemia Status: Acute Assessment and Plan: Replenished. Check in the AM. Mag normal at 2.1. Time Spent With Patient Time with patient: 25 - 35 minutes Subjective Date/time seen: 03/26/21 13:39 Interval history: date of service 03/26/2021: the patient reports some improvement of her symptoms since arrival. She states whenever she came in she could not move her hand or arm. Now she is able to make a fist and open her hand. She is also able to lift her arm up for short period of time. she reports having a long history of back pain and even had surgery in June of last year. When she slid out of bed onto the ground due to her
[2021-03-26] MEDS: amLODIPine BESYLATE 5 MG TABLET PO (14:05)
--- NOTE | 2021-03-26 19:24 | PCCCNOTE ---
jolanta colbert from [facility] for SNF placement. Please call [facility] tomorrow 03/27 with the name of the facility. no ref # available without the facility name
--- NOTE | 2021-03-26 22:21 | ECHO_ITS ---
Patient Info Name: Yvonne Cunningham Age: 76 years : 1945 Gender: Female Ht: 67 in Wt: 222 lbs BSA: 2.22 m2 HR: 56 bpm BP: 148 / 53 mmHg Technical Quality: Fair Exam Date: 03/26/2021 11:31 AM Exam Location: [facility] Pulmonary Exam Room: 345 Patient Status: Inpatient Admit Date: 03/25/2021 Staff Ordering Physician: Tahira Madrigal PA-C Molding And Trim Installer: Leah Barahona RDCS Attending Provider: Zhane Gale PA-C Referring Physician: Rohan VALLADARES; Exam Type: CA echo doppler color flow Study Info Indications - cva htn Complete two-dimensional, color flow and Doppler transthoracic echocardiogram is performed. Summary 1. Complete two-dimensional, color flow and Doppler transthoracic echocardiogram is performed. 2. Left ventricular chamber dimension is normal. 3. Basal posterior/inferior ledezma are thin and akinetic. 4. Left ventricular systolic function is normal, estimated at 55-60%. 5. The left ventricular diastolic function is grade I diastolic dysfunction. 6. E/e' 11 is mildly elevated. 7. Left atrial chamber dimension is mildly enlarged. 8. There is mild tricuspid valve regurgitation. 9. No pulmonary hypertension, estimated pulmonary arterial systolic pressure is 27 mmHg. Left Ventricle E/e' 11 is mildly elevated. Basal posterior/inferior ledezma are thin and akinetic. Left ventricular chamber dimension is normal. Left ventricular systolic function is normal, estimated at 55-60%. The left ventricular diastolic function is grade I diastolic dysfunction. Right Ventricle Right ventricular chamber dimension is normal. Right ventricular systolic function is normal. Left Atria Left atrial chamber dimension is mildly enlarged. Right Atria Right atrial chamber dimension is normal. Aortic Valve The aortic valve is trileaflet. There is no aortic valve stenosis. There is no aortic valve regurgitation. Pulmonic Valve There is no pulmonic regurgitation. Mitral Valve There is no mitral valve stenosis. There is no mitral valve regurgitation. Tricuspid Valve There is mild tricuspid valve regurgitation. No pulmonary hypertension, estimated pulmonary arterial systolic pressure is 27 mmHg. Pericardium/Pleural There is no pericardial effusion. Inferior Vena Cava Normal inferior vena cava with >50% collapse upon inspiration consistent with normal right atrial pressure, 5 mmHg. Aorta The aortic root size at the sinus of Valsalva is normal. Left Ventricular Outflow Tract Name Value Normal LVOT 2D LVOT Diameter 2.0 cm LVOT Doppler LVOT Peak Gradient 4 mmHg LVOT Mean Gradient 2 mmHg LVOT VTI 23 cm LVOT VTI/AV VTI Ratio 0.9 LVOT Stroke Volume 72 ml LVOT CO 11.1 l/min LVOT CI 5.0 l/min/m2 Pulmonic Valve Name Value Normal
[2021-03-27] VITALS (9 sets, daily range): BP systolic 138–175; BP diastolic 53–69; PULSE 51–68; RESP 16–18; TEMP 35.8–36.4; O2SAT 97–100
[2021-03-27 06:46] LABS: Hematocrit 39.4 % (37.0-47.0); Hemoglobin 12.8 g/dL (12.0-15.0); Mean Corpuscular HGB Conc 32.5 g/dl (32-36); Mean Corpuscular Hemoglobin 30.8 pg (26-34); Mean Corpuscular Volume 94.9 fl (80-100); Mean Platelet Volume 12.1 fl (7.4-10.4); Platelet Count Result 188 k/mm3 (150-375); Red Blood Count 4.15 M/mm3 (4.2-5.4); Red Cell Distribution Width 12.7 % (11.5-14.5); White Blood Count 5.9 K/mm3 (4.5-10.0)
[2021-03-27 07:01] LABS: Anion Gap 6 mmol/L (8-16); Blood Urea Nitrogen 12 mg/dL (7-17); Calcium 9.7 mg/dL (8.4-10.2); Carbon Dioxide 29 mmol/L (22-30); Chloride 106 mmol/L (98-107); Estimated CRCL calculation 66 ml/min; Estimated Glomerular Filt Rate > 60; Glucose 108 mg/dL (65-110); Potassium 3.9 mmol/L (3.4-5.0); Sodium 141 mmol/L (137-145)
[2021-03-27] MEDS: FOLIC ACID 0.4 MG TABLET PO ×2 (08:10→18:01)
[2021-03-27] MEDS: PARoxetine 20 MG TABLET 40 MG PO (08:11)
[2021-03-27] MEDS: OMEGA 3 POLYUNSAT FATTY ACIDS 1 GM CAP PO (08:11)
[2021-03-27] MEDS: GABAPENTIN 300 MG CAPSULE PO (08:11)
[2021-03-27] MEDS: ASPIRIN 81 MG CHEWABLE TABLET 324 MG PO (08:12)
[2021-03-27] MEDS: CYANOCOBALAMIN 1,000 MCG TABLET 1000 MCG PO (08:12)
[2021-03-27] MEDS: PANTOPRAZOLE 40 MG TABLET PO (08:12)
[2021-03-27] MEDS: ATORVASTATIN 40 MG TABLET PO (08:12)
[2021-03-27] MEDS: buPROPion HCL 100 MG TABLET PO ×2 (08:12→18:01)
[2021-03-27] MEDS: amLODIPine BESYLATE 5 MG TABLET PO (08:12)
[2021-03-27] MEDS: METOPROLOL TARTRATE 12.5 MG TABLET PO ×2 (08:12→20:30)
[2021-03-27] MEDS: FERROUS SULFATE 324 MG TABLET PO ×2 (08:12→18:00)
--- NOTE | 2021-03-27 10:13 | PCOTNOTE ---
Spoke with RN concerning Bed rest orders placed on 03/25. Once confirmation was given from RN to be able to get pt out of bed, RN stated that she will speak with the doctor to remove bed rest orders for further participation in therapy.
--- NOTE | 2021-03-27 13:46 | PM.IMPN ---
Progress Note: A&P Assessment and Plan (1) Acute cerebrovascular accident (CVA): Code(s): I63.9 - Cerebral infarction, unspecified Status: Acute Assessment and Plan: The patient presented tod the ER for evaluation of left sided weakness, facial droop, slurred speech which began at 0300 03/25/21 while getting up from bed to go to the bathroom. She fell on the ground and was unable to get herself up. She was on the ground for approximately 10 hours until her family found her and called EMS and she came to the ER for further evaluation. She was not a candidate for tPA. Likely due to underlying hypertension and tobacco abuse. CTA of the head and neck did not show any acute findings or significant carotid stenosis Echocardiogram with NL EF (55-60%) with akinesis of basal posteroinferior ledezma. Tele shows NSR, with few PVCs and PACs, no acute arrhythmia noted. She is on aspirin 81 mg daily and has previously been on Plavix and tolerated that well. I will defer to Dr. Segovia as to whether he wants to start Plavix or recommends something else. Most likely due to high NIH Stroke Scale she will need Plavix + ASA upon discharge for one month, then switch to a single agent. PT/OT/ ST consulted. Continue monitoring. If patient is stable for discharge she will need outpatient PT/OT/SP vs SNF vs Acute Rehab would be best (2) Middle cerebral artery aneurysm: Code(s): I67.1 - Cerebral aneurysm, nonruptured Status: Acute Assessment and Plan: Incidentally she was found to have a small 2.5 mm aneurysm at the trifurcation of the left middle cerebral artery. Patient mentions that her 47-year-old son and 2 aunts from cerebral aneurysms. Outpatient f/u appropriate (3) Hypertension: Code(s): I10 - Essential (primary) hypertension Status: Acute Assessment and Plan: Blood pressures were reviewed: 140s-150s systolic 03/27 AM Continue on home medications, allow permissive HTN. (4) Hyperlipidemia: Code(s): E78.5 - Hyperlipidemia, unspecified Status: Acute Assessment and Plan: LDL is 83, should be less than 70. Otherwise well controlled. Increased atorvastatin from 10 mg to high dose 40 mg due to CVA. (5) Tobacco use: Code(s): Z72.0 - Tobacco use Status: Acute Assessment and Plan: Smoking cessation is imperative and was discussed again on 03/27. (6) Coronary artery disease: Code(s): I25.10 - Atherosclerotic heart disease of [place] coronary artery without angina pectoris Status: Acute Assessment and Plan: No chest pain symptoms, palpitations. (7) Hypokalemia: Code(s): E87.6 - Hypokalemia Status: Acute Assessment and Plan: Resolved. Subjective Date/time seen: 03/27/21 13:46 Interval history: admitted March 25 with acute onset left-sided weakness and slurred speech. CT brain showed right basal gangliar infarct and 2.5 mm aneurysm at the trifurcation of the Right internal carotid artery. March 27. Strength improving in left hand and arm. Tolerating diet. Speech improving. Walked to bathroom with walker. Has decided she wants to go home with home health. Her daughter will stay with her and therapeutic activities services worker while the patient recuperates. She denied chest pain or shortness of breath. Denied musculoskeletal pain. Denied GI or changes. Denied abnormal bleeding. Review of Systems Review of Systems: All systems reviewed & are unremarkable except as noted in HPI and below Exam Narrative: Exam Narrative: HEENT: PERRL, sclerae nonicteric, pharyngeal mucosa pink and intact NECK: No JVD C
[2021-03-28] VITALS: BP 166/86; PULSE 56; PULSE 57; RESP 18; TEMP 37.1; O2SAT 97
[2021-03-28 00:35] VITALS: BP 157/89
[2021-03-28 04:00] VITALS: BP 169/63; PULSE 55; PULSE 57; RESP 16; TEMP 36.6; O2SAT 99
[2021-03-28 08:00] VITALS: BP 163/69; PULSE 51; PULSE 52; RESP 20; TEMP 37.2; O2SAT 99
[2021-03-28] MEDS: OMEGA 3 POLYUNSAT FATTY ACIDS 1 GM CAP PO (09:13)
[2021-03-28] MEDS: amLODIPine BESYLATE 5 MG TABLET PO (09:13)
[2021-03-28] MEDS: ASPIRIN 81 MG CHEWABLE TABLET 324 MG PO (09:14)
[2021-03-28] MEDS: ATORVASTATIN 40 MG TABLET PO (09:14)
[2021-03-28] MEDS: FERROUS SULFATE 324 MG TABLET PO (09:14)
[2021-03-28] MEDS: buPROPion HCL 100 MG TABLET PO (09:14)
[2021-03-28 09:15] VITALS: PULSE 53
[2021-03-28] MEDS: PARoxetine 20 MG TABLET 40 MG PO (09:15)
[2021-03-28] MEDS: CYANOCOBALAMIN 1,000 MCG TABLET 1000 MCG PO (09:15)
[2021-03-28] MEDS: METOPROLOL TARTRATE 12.5 MG TABLET PO (09:15)
[2021-03-28] MEDS: GABAPENTIN 300 MG CAPSULE PO (09:15)
[2021-03-28] MEDS: FOLIC ACID 0.4 MG TABLET PO (09:15)
[2021-03-28] MEDS: PANTOPRAZOLE 40 MG TABLET PO (09:15)
[2021-03-28] MEDS: CLOPIDOGREL BISULFATE 75 MG TABLET PO (09:15)
--- NOTE | 2021-03-28 10:37 | PM.DS ---
DS: Admitting Diagnosis Admitting Diagnosis stroke with left hemiparesis DS: Discharge Diagnosis Discharge Diagnosis (1) Acute cerebrovascular accident (CVA): Code(s): I63.9 - Cerebral infarction, unspecified Status: Acute Assessment and Plan: The patient presented tod the ER for evaluation of left sided weakness, facial droop, slurred speech which began at 0300 03/25/21 while getting up from bed to go to the bathroom. She fell on the ground and was unable to get herself up. She was on the ground for approximately 10 hours until her family found her and called EMS and she came to the ER for further evaluation. She was not a candidate for tPA. Likely due to underlying hypertension and tobacco abuse. CTA of the head and neck did not show any acute findings or significant carotid stenosis Echocardiogram with NL EF (55-60%) with akinesis of basal posteroinferior ledezma. Tele shows NSR, with few PVCs and PACs, no acute arrhythmia noted. She is on aspirin 81 mg daily and has previously been on Plavix and tolerated that well. Plavix + ASA upon discharge for one month, then switch to a single agent. PT/OT/ ST consulted. Outpatient PT/OT/SP with [facility] to begin in 48 hours per family and patient's wishes. They do not wish to pursue residential or acute rehab. (2) Middle cerebral artery aneurysm: Code(s): I67.1 - Cerebral aneurysm, nonruptured Status: Acute Assessment and Plan: Incidentally she was found to have a small 2.5 mm aneurysm at the trifurcation of the left middle cerebral artery. Patient mentions that her 47-year-old son and 2 aunts from cerebral aneurysms. Outpatient f/u appropriate (3) Hypertension: Code(s): I10 - Essential (primary) hypertension Status: Acute Assessment and Plan: Blood pressures were reviewed: 150s-160s systolic 7/25 AM Continue on home medications, allow permissive HTN. Adjust medications in one week with Dr. Bourne. (4) Hyperlipidemia: Code(s): E78.5 - Hyperlipidemia, unspecified Status: Acute Assessment and Plan: LDL is 83, should be less than 70. Otherwise well controlled. Increased atorvastatin from 10 mg to high dose 40 mg due to CVA. (5) Tobacco use: Code(s): Z72.0 - Tobacco use Status: Acute Assessment and Plan: Smoking cessation is imperative and was discussed again on 03/28. (6) Coronary artery disease: Code(s): I25.10 - Atherosclerotic heart disease of [place] coronary artery without angina pectoris Status: Acute Assessment and Plan: No angina (7) Hypokalemia: Code(s): E87.6 - Hypokalemia Status: Acute Assessment and Plan: Resolved. DS: Summary Hospital Course Reason for hospitalization: Left hemiparesis Hospital Course: The patient presented tod the ER for evaluation of left sided weakness, facial droop, slurred speech which began at 0300 03/25/21 while getting up from bed to go to the bathroom. She fell on the ground and was unable to get herself up. She was on the ground for approximately 10 hours until her family found her and called EMS and she came to the ER for further evaluation. She was not a candidate for tPA. she tolerated PT OT and ST well. She was continued on aspirin therapy with the addition of clopidogrel 75 mg daily. Strength was returning in the left upper extremity. She was able ambulate with a walker. She and her family wish to pursue home health with family staying with her 24 hours daily as opposed to residential or acute rehab. Echocardiogram: 1. Complete two-dimensional, col
[2021-03-28 12:00] VITALS: BP 181/45; PULSE 47; RESP 16; TEMP 36.7; O2SAT 97
== END 2021-03-28 14:00 | disposition home health service (06) | DRG 65 ==
LOC: ANHED 16:08 → ANH3MED 19:48
PROVIDERS: Physician Assistant; Admitting Provider Family Medicine; Emergency Provider Emergency Medicine; PCP Family Medicine; Visit Provider Physician Assistant
DX: I63.9 Cerebral infarction, unspecified (principal); G81.94 Hemiplegia, unspecified affecting left nondominant side; R29.810 Facial weakness; R47.81 Slurred speech; R29.707 NIHSS score 7; I67.1 Cerebral aneurysm, nonruptured; I10 Essential (primary) hypertension; E78.5 Hyperlipidemia, unspecified; I25.10 Atherosclerotic heart disease of native coronary artery without angina pectoris; E87.6 Hypokalemia; F17.210 Nicotine dependence, cigarettes, uncomplicated; M19.90 Unspecified osteoarthritis, unspecified site; F41.9 Anxiety disorder, unspecified; F32.9 Major depressive disorder, single episode, unspecified; K21.9 Gastro-esophageal reflux disease without esophagitis; I25.2 Old myocardial infarction; Z95.1 Presence of aortocoronary bypass graft
CPT/HCPCS: 36415; 70450; 70496; 70498; 70553; 71045; 80048; 80053; 80061; 82550; 82948; 83735; 84484; 85025; 85027; 85610; 85730; 92507; 92523; 93005; 93306; 97110; 97116; 97161; 97165; 97535; 99285; A9270; A9577; J3480; Q9967

== ENCOUNTER 2021-05-04 12:50 | Outpatient (CLI) | payer MEDICARE, SELFPAY ==
--- NOTE | ~2021-05-04 | XR_ITS ---
EXAMINATION: XR clavicle LT EXAM DATE: 05/04/2021 13:04 INDICATION: M89.8X1 -Recent injury, left clavicular pain. Initial encounter. TECHNIQUE: 2 frontal projections left clavicle with different degrees of angulation. There is no pr ior study for comparison. FINDINGS: Mild left, clavicular joint primary osteoarthritis. Sternotomy wires. There are no acute fr actures identified. The soft tissue is unremarkable. IMPRESSION: No acute findings. Reviewed, dictated and finalized at location B. IMPRESSION: No acute findings.
== END 2021-05-04 12:51 | disposition home or self-care (01) ==
PROVIDERS: PCP Family Medicine; Visit Provider Family Medicine
DX: M89.8X1 Other specified disorders of bone, shoulder (principal)
CPT/HCPCS: 73000

== ENCOUNTER 2021-05-26 14:00 | Outpatient (RCR) | payer MEDICARE, SELFPAY ==
--- NOTE | 2021-04-28 10:49 | OTOPEVAL ---
OCCUPATIONAL THERAPY EVALUATION REPORT 04/28/21 Thank you for referring Yvonne Cunningham to [facility].? The patient is scheduled to be seen for therapy? 2x/week for 4 weeks. Please review, sign, date and return this plan of care JOSHUA. I agree with and certify that the following plan of care is medically necessary. Referring Physician Date Referring Provider: Murray Bourne MD *OT Outpatient Evaluation Start: 04/28/21 09:28 Therapy Assessment Status Assessment Status Assessment Status Evaluation Outpatient Past Medical History Past Medical History Source of Past Medical History Recalled from Previous Visit, Confirmed with Patient/Family Neurological History Hx Cerebrovascular Accident (CVA) Yes: March 2021 Cardiovascular History Hx Cardiac Catheterization Yes Hx Coronary Artery Bypass Graft Yes: 05/20/08 Hx Coronary Artery Disease Yes Hx Hypercholesterolemia Yes Hx Hypertension Yes Hx Myocardial Infarction Yes: Sep 2019- no stents Respiratory History Hx Respiratory Disorders No Significant History Gastrointestinal History Hx Gastroesophageal Reflux Disease Yes Genitourinary History Hx Bladder Surgery Yes Musculoskeletal History Hx Arthritis Yes Hx Fractures Yes: right arm Hematological History Hx Anemia Yes Endocrine History Hx Endocrine Disorders No Significant History HEENT History Hx Tonsillectomy Yes Hx Sinus Problems Yes Hx Dental Problems Yes: dentures Integumentary History Hx Skin Disorders No Significant History Psychosocial History Hx Anxiety Yes Hx Depression Yes Pain History History of Any Previous or Ongoing No Significant History Instance of Pain Anesthesia History Hx Anesthesia Reactions No Significant History Evaluation Information Problem Diagnosis CVA Onset 03/25/21 Subjective Information Patient states that since Query Text:As Reported By Patient/ [facility] home [facility] her daughter or sister has been staying with her, stating someone is with me 27/03 . She states that last night was the first night she independently showered and got dressed. She reports her biggest limitations is the weakness in her left hand. She states she cannot carry items in the left hand. Patient does a lot of crafts:
--- NOTE | 2021-05-03 14:10 | PCOTNOTE ---
Patient called & cancelled scheduled appointment tomorrow as she is going to get an x-ray of her shoulder/clavicle.
--- NOTE | 2021-05-20 15:10 | PCOTNOTE ---
Patient called & cancelled scheduled appointment this date. No reason given.
--- NOTE | 2021-05-26 14:35 | OTOPEVAL ---
OCCUPATIONAL THERAPY RE-EVALUATION AND DISCHARGE SUMMARY 05/26/21 Nicky has participated in 5 outpatient OT sessions focused on left UE strengthening and coordination following CVA. Re-assessment today shows progress with strength and coordination which has translated into greater function and independence with ADLs, household tasks, and leisure activities. She states she is really pleased with her progress. Discharging today with patient independent with HEP. Patient was not interested in scheduling PT or ST at this time as she just wanted to work on her hand. Thank you for referring Yvonne Cunningham to [facility] [place].?Please review, sign, date and return this D/C Note JOSHUA. I agree with and certify that the following plan of care is medically necessary. Referring Physician Date Referring Provider: Murray Bourne MD *OT Outpatient Evaluation Start: 04/28/21 09:28 Evaluation Information Problem Diagnosis CVA Onset 03/25/21 Subjective Information Patient states that her hand Query Text:As Reported By Patient/ has made a lot of progress Family since beginning therapy a month ago. States she can now curl her hair, cook, carry items with the left hand, and has gotten back into doing her crafts - making a wreath, sewing, etc. States she is really happy with how her arm is doing. Pain Assessment Timing of Pain Assessment Timing of Pain Assessment Re-assessment Pain Scale Pain Scale Used Numeric (1 - 10) Self Report Pain Assessment Left Shoulder(s) Reported Pain Level 0 Lowest Pain Intensity 0 Greatest Pain Intensity 0 Pain Score Pain Score 0: Self Report Upper Extremity Range of Motion General Upper Extremity Range of Motion Reason Not Measured WNL/Left Scapular/ Shoulder Range of Motion Left Shoulder Medial Rotation - Active Reaches sacral area. Reports Query Text:Reach Behind the Back shoulder tightness with IR. Shoulder Lateral Rotation - Active ER is symmetrical to the right Query Text:Reach Behind the Head . Scapular/Shoulder Range of Motion Shoulder flexion and abduction Comments is symmetrical to the right. Moves slowly and deliberately on the left. Upper Extremity Muscle Strength Testing Scapular/Shoulder Left Shoulder Flexion Strength 4 Good Shoulder Extension Strength 4+ Good + Shoulder Abduction Strength 4 Good Shoulder Adduction Strength 4+ Good + Shoulder Strength Comments No pain with MMT. Elbow/Forearm Left Elbow Flexion Strength 5 Normal Elbow Extension Strength 5 Normal Forearm Pronation Strength 4+ Good + Forearm Supination Stren
== END 2021-05-27 08:41 | disposition home or self-care (01) ==
LOC: ANHOT 14:00
PROVIDERS: PCP Family Medicine; Visit Provider Family Medicine
DX: I63.9 Cerebral infarction, unspecified (principal)
CPT/HCPCS: 97110; 97140; 97166

== ENCOUNTER 2021-07-14 08:54 | Outpatient (CLI) | payer MEDICARE, SELFPAY ==
[2021-07-14 09:10] LABS: Basophils Absolute Auto 0.1 K/mm3 (0.0-0.1); Basophils Percent Auto 1.2 % (0.2-1.2); Eosinophils Absolute Auto 0.2 K/mm3 (0-0.3); Eosinophils Percent Auto 3.1 % (0-4.4); Hematocrit 35.1 % (37.0-47.0); Hemoglobin 11.3 g/dL (12.0-15.0); Immature Granulocyte Absolute 0.02 K/mm3 (0.00-0.031); Immature Granulocyte Percent A 0.3 % (0-0.5); Lymphocytes Absolute Auto 1.86 K/mm3 (0.9-3.2); Mean Corpuscular HGB Conc 32.2 g/dl (32-36); Mean Corpuscular Hemoglobin 31.7 pg (26-34); Mean Corpuscular Volume 98.6 fl (80-100); Mean Platelet Volume 11.6 fl (7.4-10.4); Monocytes Absolute Auto 0.5 K/mm3 (0.1-0.6); Monocytes Percent Auto 9.1 % (2.6-8.5); Neutrophils Absolute Auto 3.2 K/mm3 (1.3-6.7); Neutrophils Percent Auto 54.3 % (45.5-73.1); Platelet Count Result 213 k/mm3 (150-375); Red Blood Count 3.56 M/mm3 (4.2-5.4); Red Cell Distribution Width 12.9 % (11.5-14.5); White Blood Count 5.8 K/mm3 (4.5-10.0)
[2021-07-14 09:29] LABS: Alanine Aminotransferase 17 U/L (4-35); Albumin Level 4.2 g/dL (3.5-5.1); Alkaline Phosphatase 78 U/L (38-126); Anion Gap 7 mmol/L (8-16); Aspartate Amino Transferase 23 U/L (14-36); Bilirubin,Total 0.3 mg/dL (0.2-1.3); Blood Urea Nitrogen 17 mg/dL (7-17); Calcium 9.5 mg/dL (8.4-10.2); Carbon Dioxide 27 mmol/L (22-30); Chloride 107 mmol/L (98-107); Cholesterol 128 mg/dL (0-200); Estimated Glomerular Filt Rate 49; Glucose 102 mg/dL (65-110); HDL Direct 32 mg/dL; Sodium 141 mmol/L (137-145); Triglycerides 133 mg/dL (<150)
[2021-07-14 09:40] LABS: LDL Cholesterol Direct 66 mg/dL
[2021-07-14 10:31] LABS: Vitamin B12 > 1000.0 pg/mL (239-931)
== END 2021-07-14 08:55 | disposition home or self-care (01) ==
PROVIDERS: PCP Family Medicine; Visit Provider Family Medicine
DX: E78.5 Hyperlipidemia, unspecified (principal); I10 Essential (primary) hypertension; E53.8 Deficiency of other specified B group vitamins; E55.9 Vitamin D deficiency, unspecified
CPT/HCPCS: 36415; 80053; 80061; 82306; 82607; 84443; 85025

== ENCOUNTER 2021-08-06 13:27 | Outpatient (CLI) | payer MEDICARE, SELFPAY ==
--- NOTE | ~2021-08-06 | CT_ITS ---
EXAMINATION: CT lung screening DATE: 08/06/2021 13:42 INDICATION: Personal history of tobacco dependence. Encounter for screening. Malignant neoplasm. TECHNIQUE: Computed tomography (CT) of the chest was performed without intravenous contrast. The dose -length product was 182.34 mGy-cm. Automated exposure control and iterative reconstruction technique were employed. COMPARISON: CT dated 05/15/2020 FINDINGS: There is a stable nodule right upper lobe measuring 3 mm. No thoracic lymphadenopathy. Ther e is atherosclerosis and ectasia of the aorta. No significant pleural or pericardial effusion. There is a 2 mm right upper lobe nodule, image 26. There are a few scattered calcified granulomas of the davin ngs. There is mild emphysema. No endobronchial lesions. No pneumothorax. No focal airspace consolidat ion. Moderate thoracic spondylosis. Small hiatal hernia. There is accentuated thoracic kyphosis. IMPRESSION: 1. Lung-RADS category 2: Benign appearance or behavior. Continue annual screening with noncontrast lo w-dose chest CT in 12 months. Reviewed, dictated and finalized at location A. N RESOURCES LEADER IMPRESSION: 1. Lung-RADS category 2: Benign appearance or behavior. Continue annual screeni ng with noncontrast low-dose chest CT in 12 months.
== END 2021-08-06 13:28 | disposition home or self-care (01) ==
LOC: ANHIMG 13:27
PROVIDERS: PCP Family Medicine; Visit Provider Family Medicine
DX: Z12.2 Encounter for screening for malignant neoplasm of respiratory organs (principal); Z87.891 Personal history of nicotine dependence
CPT/HCPCS: 71271

== ENCOUNTER 2021-12-27 15:26 | Outpatient (CLI) | payer MEDICARE, SELFPAY ==
--- NOTE | ~2021-12-27 | DEXA_ITS ---
Bone Density Report Name: ABEBE PHELPS Age: 76 Sex: Female Ethnicity: White Date of : 1945 Indication: postmenopausal; screening for osteoporosis; height loss; Referring Provider: REAL MOREJON Study: Bone densitometry was performed. Exam Date: December 27, 2021 Accession number: [id number] Bone Density: Region BMD T-score Z-score Classification AP Spine(L1, L2) 0.950 -0.3 2.0 Normal Femoral Neck (Left) 0.635 -1.9 0.1 Osteopenia Total Hip (Left) 0.821 -1.0 0.8 Normal Femoral Neck (Right) 0.610 -2.2 -0.1 Osteopenia Total Hip (Right) 0.791 -1.2 0.5 Osteopenia Total Hip Mean 0.806 -1.1 0.7 Osteopenia World Health Organization criteria for BMD impression classify patients as: Normal (T-score at or above -1.0), Osteopenia (T-score between -1.0 and -2.5), or Osteoporosis (T-score at or below -2.5). 10-year Fracture Risk(1): Major Osteoporotic Fracture 13% Hip Fracture 5.1% Reported Risk Factors: [place] (), Neck BMD=0.610, BMI=37.8, smoking (1) FRAX(R) Version 3.08. Fracture probability calculated for an untreated patient. Fracture probability may be lower if the patient has received treatment. Clinical Information Provided by Patient: Smokes Has used the following medications: Vitamin D Patient maximum height was 67 Menopause Age: 52 No regular weight bearing exercise Drinks caffeinated beverages Onset of menses at age 17 Number of children 3 Impression: The patient has low bone mass, based on the Right Femoral Neck T-score. The patient has an estimated ten-year risk of hip fracture of 5.1% and an estimated ten-year risk of major fracture of 13%, based on the WHO FRAX algorithm. The patient has risk factors, including: smoking. Discussion: BONE DENSITY IS LOW AT ONE OR MORE SKELETAL SITES. THE PATIENT'S BMD AND CLINICAL RISK FACTORS CONTRIBUTE TO THIS PATIENT'S INCREASED RISK OF FRACTURE. This patient's lowest T-score is low at one or more skeletal sites. It meets the World Health Organization's (WHO) criteria for ?low bone mass? (T-score between -1.0 and -2.5). The patient's 10-year risk of hip fracture as calculated by FRAX exceeds the threshold where pharmacological therapy is recommended by the National Osteoporosis Foundation (NOF). However, all treatment decisions require clinical judgment and consideration of individual patient factors, including patient preferences, comorbidities, previous drug use, risk factors not captured in the FRAX model (e.g., frailty, falls, vitamin D deficiency, increased bone turnover, interval significant decline in bone density) and possible under or overestimation of fracture risk by FRAX. The patient should follow a healthful lifestyle (good nutrition with adequate calcium and vitamin D, and appropriate weight-bear
--- NOTE | ~2021-12-27 | MM_ITS ---
EXAMINATION: MM screening [facility] BI w richy HISTORY: Screening TECHNIQUE: Craniocaudal and mediolateral oblique 3-D tomosynthesis images were obtained and synthetic 2-D images were generated. CAD analysis was submitted and interpreted. COMPARISON: Comparison to multiple prior studies sequentially, with oldest reviewed study dated 11/2016. BREAST PARENCHYMAL COMPOSITION: There are scattered areas of fibroglandular density. FINDINGS: There is no evidence of suspicious mass, calcification, or architectural distortion to sugg est malignancy in either breast. There has been no suspicious interval change. IMPRESSION: 1. No mammographic evidence of malignancy. 2. Recommend routine screening mammography in one year. BI-RADS Category 1: Negative Reviewed, dictated and finalized at location A.
== END 2021-12-27 15:27 | disposition home or self-care (01) ==
PROVIDERS: PCP Family Medicine; Visit Provider Family Medicine
DX: Z12.31 Encounter for screening mammogram for malignant neoplasm of breast (principal); Z78.0 Asymptomatic menopausal state; M85.852 Other specified disorders of bone density and structure, left thigh; M85.851 Other specified disorders of bone density and structure, right thigh
CPT/HCPCS: 77063; 77067; 77080

== ENCOUNTER 2022-04-08 10:02 | Outpatient (CLI) | payer MEDICARE, SELFPAY ==
--- NOTE | ~2022-04-08 | XR_ITS ---
XR hip LT 2V w AP pelvis 04/08/2022 10:26 Indication: Left hip pain Procedure: AP pelvis and 2 views left hip Comparison: 03/18/2020 Findings: Pelvic rings are intact. No acute fracture or traumatic malalignment. There is mild osteoar thritis of the right hip. There are spinal fusion changes at L4 S1. Impression: 1: No acute fracture. Reviewed, dictated and finalized at location A. Impression: 1: No acute fracture.
--- NOTE | ~2022-04-08 | US_ITS ---
EXAMINATION:US venous doppler LE LT INDICATION:Left lower extremity pain TECHNIQUE: Multiple grayscale, color flow and Doppler images of the left lower extremity deep venous systems were obtained and reviewed. COMPARISON:No prior studies for comparison. FINDINGS: The common femoral, superficial femoral and popliteal veins demonstrate normal respiratory variation, augmentation and compressibility. Color flow is also seen within the posterior tibial, pe roneal, greater saphenous and profunda veins. IMPRESSION: 1: No lower extremity deep venous thrombosis. Reviewed, dictated and finalized at location A.
== END 2022-04-08 10:03 | disposition home or self-care (01) ==
PROVIDERS: PCP Family Medicine; Visit Provider Nurse Practitioner Family
DX: R10.32 Left lower quadrant pain (principal); M79.605 Pain in left leg
CPT/HCPCS: 73502; 93971

== ENCOUNTER 2022-04-12 16:32 | Emergency (ER) | payer MEDICARE, SELFPAY ==
[2022-04-12] VITALS (19 sets, daily range): BP systolic 167–207; BP diastolic 49–59; PULSE 58–71; RESP 15–17; TEMP 36.4; O2SAT 86–100
--- NOTE | ~2022-04-12 | CT_ITS ---
CT OF pelvis EXAMINATION: CT pelvis wo con DATE: 04/12/2022 18:41 INDICATION: TECHNIQUE: Computed tomography (CT) of the pelvis was performed without intravenous contrast. Automat ed exposure control and iterative reconstruction technique were employed. The dose-length product was 1003.94 mGy-cm. COMPARISON: CT abdomen and pelvis 01/22/2020. FINDINGS: Limitations: None Bones: Severe osteopenia. No fracture or dislocation. L4-S1 posterior fusion, hardware intact no lyti c or blastic lesion. Stable subcortical lucency in the right femoral head. Soft Tissues:The soft tissues appear within normal limits. No evidence of mass or fluid collection. Fluid: No significant fluid within the joint capsule or surrounding bursal spaces. IMPRESSION: Acute osseous finding in the pelvis. Reviewed, dictated and finalized at location K.
--- NOTE | 2022-04-12 17:03 | ED.LOWEXIN ---
HPI - Extremity Injury (Lower) General Chief Complaint: Extremity Injury, Lower Stated Complaint: possible hairline hip fracture Time Seen by Provider: 04/12/22 17:03 History of Present Illness HPI Narrative: Patient is a 77-year-old female presenting to the emergency department for evaluation of acutely worsening left-sided hip pain over the past month. Patient denies any fall or injury that predated the pain. States that she has been dealing with daily pain that has become severe in nature and now difficulty with ambulation secondary to the pain. She denies any middle back pain. She denies fever, chills, cough, shortness of breath. She denies any leg swelling or calf pain. She was seen by her primary care provider who referred her for an ultrasound and outpatient x-ray both of which were normal. Patient was then referred to orthopedic surgery and MRI, but due to the degree of patient's pain, the patient was sent here by Dr. Mckeon's office. Related Data Home Medications Medication Instructions Recorded Confirmed amlodipine 5 mg tablet 5 mg PO DAILY 09/21/19 04/07/22 aspirin 81 mg chewable tablet 81 mg PO DAILY 09/21/19 04/07/22 folic acid 400 mcg tablet 0.4 mg PO BID 09/21/19 04/07/22 metoprolol tartrate 25 mg tablet 12.5 mg PO BID 09/21/19 04/07/22 omega-3 fatty acids-fish oil 340 1 cap PO DAILY 09/21/19 04/07/22 mg-1,000 mg capsule atorvastatin 40 mg tablet 40 mg PO QHS 07/01/21 04/07/22 calcium carbonate 600 mg-vitamin 1 cap PO DAILY 01/10/22 04/07/22 D3 12.5 mcg (500 unit) capsule (Calcium 600 with Vitamin D3) paroxetine HCl 20 mg tablet 20 mg PO BID 04/12/22 Allergies Allergy/AdvReac Type Severity Reaction Status Date / Time No Known Allergies Allergy Verified 04/12/22 17:11 Review of Systems Review of Systems: CONSTITUTIONAL: Denies fever, chills, or sweats. EYES: Denies visual changes, redness, or discharge. ENT: Denies rhinorrhea, congestion, sore throat, or otalgia. CARDIOVASCULAR: Denies chest pain, palpitations, or edema. RESPIRATORY: Denies cough or dyspnea. GASTROINTESTINAL: Denies abdominal pain, nausea, vomiting, or diarrhea. GENITOURINARY: Denies dysuria or hematuria. SKIN: Denies rash or itching. MUSCULOSKELETAL: Denies back pain, reports left hip pain, denies edema or bruising NEUROLOGIC: Denies headache, numbness, or weakness. [facility] Past Medical History Medical History Acute cerebrovascular accident (CVA) 03/2021 Anxiety Arthritis B12 deficiency Coronary artery disease Depression History of stroke 03/2021 HLD (hyperlipidemia) HTN (hypertension) Non-STEMI (non-ST elevated myocardial infarction) September 2019 with left heart catheterization demonstrating modest left main disease, total occlusion of LAD and right coronary artery proximally, modest 40-50% stenosis of the 1st obtuse marginal branch of the circumflex, remaining patency of GARCIA to LAD, patency of saphenous vein graft to RCA, occlusion of the proximal aspect of the vein graft to the 1st obtuse marginal branch circumflex, mild left ventricular systolic dysfunction with posterior basal akinesis with good ejection fraction with medical therapy recommended. Restless legs syndrome Tobacco use Surgical History Surgical History History of bladder suspension procedure (~2006) History of carpal tunnel surgery Left wrist History of carpal tunnel surgery of left wrist (~2008) History of facial surgery Tongue surgery left face due to benign tumor - History of lumbosacral spine surgery 06/2020 History of lumpectomy of left breast (~1990) S/P CABG x 3 2007 GARCIA to left anterior descending, vein graft to PDA and to the obtuse marginal S/P cubital tunnel release Left - 2009 Family History Family History Father Heart disease of heart disease Coronary artery disease Mother Heart disease
--- NOTE | 2022-04-12 17:32 | ECG_ITS ---
Measurements Intervals [place] Rate: 54 P: 52 IA: 204 QRS: -9 QRSD: 114 T: 116 QT: 436 QTc: 416 Interpretive Statements SINUS BRADYCARDIA POSSIBLE LEFT ATRIAL ENLARGEMENT [-0.1mV P WAVE IN V1/V2] NONSPECIFIC ST T-WAVE CHANGES OLD INFERIOR [place] COMPARED TO ECG 03/25/2021 14:59:32 SINUS BRADYCARDIA NOW PRESENT Electronically Signed On 04-13-2022 18:08:55 CDT by Fiona Alvarenga M.D.
[2022-04-12] MEDS: MORPHINE SULFATE (*CRX) 4 MG/ML INJ IV PUSH (17:56)
[2022-04-12] MEDS: ONDANSETRON INJ 4 MG/2 ML VIAL IV PUSH (17:56)
[2022-04-12 18:01] LABS: Basophils Absolute Auto 0.1 K/mm3 (0.0-0.1); Basophils Percent Auto 1.1 % (0.2-1.2); Eosinophils Absolute Auto 0.1 K/mm3 (0-0.3); Eosinophils Percent Auto 1.9 % (0-4.4); Hematocrit 30.3 % (37.0-47.0); Hemoglobin 9.2 g/dL (12.0-15.0); Immature Granulocyte Absolute 0.01 K/mm3 (0.00-0.031); Immature Granulocyte Percent A 0.2 % (0-0.5); Lymphocytes Absolute Auto 1.25 K/mm3 (0.9-3.2); Lymphocytes Percent Auto 23.5 % (18.3-44.2); Mean Corpuscular HGB Conc 30.4 g/dl (32-36); Mean Corpuscular Hemoglobin 30.2 pg (26-34); Mean Corpuscular Volume 99.3 fl (80-100); Monocytes Absolute Auto 0.5 K/mm3 (0.1-0.6); Monocytes Percent Auto 8.9 % (2.6-8.5); Neutrophils Absolute Auto 3.4 K/mm3 (1.3-6.7); Neutrophils Percent Auto 64.4 % (45.5-73.1); Platelet Count Result 178 k/mm3 (150-375); Red Blood Count 3.05 M/mm3 (4.2-5.4); Red Cell Distribution Width 13.6 % (11.5-14.5); White Blood Count 5.3 K/mm3 (4.5-10.0)
[2022-04-12 18:11] LABS: Anion Gap 8 mmol/L (8-16); Blood Urea Nitrogen 12 mg/dL (7-17); Calcium 9.6 mg/dL (8.4-10.2); Carbon Dioxide 29 mmol/L (22-30); Chloride 103 mmol/L (98-107); Estimated CRCL calculation 57 ml/min; Estimated Glomerular Filt Rate > 60; Glucose 102 mg/dL (65-110); Potassium 4.3 mmol/L (3.4-5.0); Sodium 140 mmol/L (137-145)
[2022-04-12 18:15] LABS: INR 1.1; Prothrombin Time 13.7 Seconds (11.1-14.7)
[2022-04-12 18:16] LABS: Partial Thromboplastin Time 26.4 SECONDS (22.3-36.8)
[2022-04-12 18:37] LABS: CRP < 0.5 mg/dL (<1.0)
[2022-04-12 19:15] LABS: Erythrocyte Sedimentation Rate 44 mm/hr (0-20)
[2022-04-12 20:11] LABS: Appearance Urine Clear (Clear); Bilirubin Urine Negative (Negative); Color Urine Yellow (Yellow); Glucose Urine UA Negative (Negative); Ketones Urine Negative (Negative); Leukocyte Esterase Ur Negative LEU/UL (Negative); Nitrate Urine Negative (Negative); Protein Urine Negative (Negative); Specific Grav Ur 1.015 (1.001-1.035); Urobilinogen Urine 0.2 mg/dL (<2.0)
[2022-04-12 20:16] LABS: Mucus Urine Rare /lpf; RBC Urine 0-2 /hpf (0-2); WBC Urine 0-3 /hpf
[2022-04-12 20:24] LABS: Add Urine Microscopic? YES; Blood Urine Trace-Intact (Negative)
[2022-04-12] MEDS: oxyCODONE/ACETAMINOPHEN (*CRX) 5-325 MG TABLET 1 TABLET PO (20:32)
== END 2022-04-12 21:06 | disposition home or self-care (01) ==
PROVIDERS: Emergency Provider Emergency Medicine; PCP Family Medicine
DX: M25.552 Pain in left hip (principal); I25.10 Atherosclerotic heart disease of native coronary artery without angina pectoris; E78.5 Hyperlipidemia, unspecified; I25.2 Old myocardial infarction; I10 Essential (primary) hypertension; E53.8 Deficiency of other specified B group vitamins; G25.81 Restless legs syndrome; M19.90 Unspecified osteoarthritis, unspecified site; Z86.73 Personal history of transient ischemic attack (TIA), and cerebral infarction without residual deficits; Z95.1 Presence of aortocoronary bypass graft; Z79.82 Long term (current) use of aspirin; F17.210 Nicotine dependence, cigarettes, uncomplicated; R00.1 Bradycardia, unspecified; R94.31 Abnormal electrocardiogram [ECG] [EKG]
CPT/HCPCS: 36415; 51701; 72192; 80048; 81001; 85025; 85610; 85652; 85730; 86140; 86850; 86900; 86901; 93005; 96374; 96375; 99284; A9270; J2270; J2405

== ENCOUNTER 2022-07-05 09:04 | Outpatient (CLI) | payer MEDICARE, SELFPAY ==
--- NOTE | ~2022-07-05 | CT_ITS ---
EXAMINATION: CTA brain carotid DATE: 07/05/2022 09:56 INDICATION: Cerebral aneurysm. TECHNIQUE: Computed tomographic angiography (CTA) of the head was performed without and with 100 mL O mnipaque-350 intravenous contrast. CTA of the neck was performed with intravenous contrast. The dose- length product was 1757.96 mGy-cm. Maximum intensity projection and volume rendered 3D-reconstruction s were created by the technologist on a separate workstation. COMPARISON: Head and neck CTA 03/25/2021 FINDINGS: HEAD CTA: There is an old infarct involving the right basal ganglia, right internal capsule, and righ t frontal lobe martinez radiata. There is no intracranial hemorrhage, acute infarction, or abnormal int racranial mass lesion. There is an old infarct in the right parietal lobe. There is ex vacuo dilatati on of right lateral ventricle. There is mild mucosal thickening in the ethmoid sinuses. There are lik maria changes of ocular lens replacement surgeries. The mastoid air cells are normal. Right vertebral a rtery is dominant. There is moderate stenosis of distal left vertebral artery. There is no significan t stenosis of basilar artery or the posterior cerebral arteries. There is mild stenosis of the intrac ranial internal carotid arteries. Right A1 anterior cerebral artery segment is small, a normal varian t. 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 The posterior communicating china opal are normal. Anterior communicating artery is normal. NECK CTA: There are no pathologically enlarged lymph nodes. There is intermittent moderate stenosis o f left vertebral artery. There is plaque in the proximal internal carotid arteries. There is 22% sten osis of the proximal right internal carotid artery relative to normal distal artery lumen diameter (N ASCET criteria). There is 31% stenosis of the proximal left internal carotid artery relative to arden l distal artery lumen diameter. There is severe cervical spondylosis. C1 ring is ununited posteriorly , a normal variant. IMPRESSION: 1. Old infarcts involving the right basal ganglia, right internal capsule, right frontal lobe martinez radiata, and right parietal lobe. 2. 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 3 .22% stenosis of the proximal right internal carotid artery relative to normal distal artery lumen diameter (NASCET criteria). 4. 31% stenosis of the proximal left internal carotid artery relative to normal distal artery lumen d iameter. 5. Intermittent moderate stenosis of left vertebral artery. Reviewed, dictated and finalized at location A. IMPRESSION: 1. Old infarcts involving the right basal ganglia, right internal capsule, righ t frontal lobe martinez radiata, and right parietal lobe. 2. 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 3 .22% stenosis of the proximal right internal carotid artery relative to arden l distal artery lumen diameter (NASCET criteria). 4. 31% stenosis of the proximal left internal carotid artery relative to normal distal artery lumen diameter. 5. Intermittent moderate stenosis of left vertebral artery.
--- NOTE | ~2022-07-05 | XR_ITS ---
XR skull min 4V DATE: 07/05/2022 09:39 INDICATION: Anterior radial head TECHNIQUE: Damián Saavedra and left and right lateral views COMPARISON: 03/25/2021 CT brain FINDINGS: There is a chronic lucency of the right parietal lobe, present on 03/25/2021. No skull fract ure or bone destruction is noted otherwise. Carotid siphon internal carotid artery calcifications overlie the sella turcica. The sella turcica ap pears normal. IMPRESSION: Chronic right parietal lucency; differential diagnosis includes anatomic variant versus m etastasis or myeloma. Reviewed, dictated and finalized at location A. IMPRESSION: Chronic right parietal lucency; differential diagnosis includes paco tomic variant versus metastasis or myeloma.
[2022-07-05 09:47] LABS: Estimated Glomerular Filt Rate > 60
== END 2022-07-05 09:05 | disposition home or self-care (01) ==
PROVIDERS: PCP Family Medicine; Visit Provider Psychiatry & Neurology Neurology
DX: I72.9 Aneurysm of unspecified site (principal); Q75.0 Craniosynostosis; I65.23 Occlusion and stenosis of bilateral carotid arteries
CPT/HCPCS: 70260; 70496; 70498; Q9967

== ENCOUNTER 2022-08-02 11:49 | Outpatient (CLI) | payer MEDICARE, SELFPAY ==
[2022-08-02 18:58] LABS: Basophils Absolute Auto 0.1 K/mm3 (0.0-0.1); Basophils Percent Auto 0.9 % (0.2-1.2); Eosinophils Percent Auto 0.4 % (0-4.4); Immature Granulocyte Absolute 0.01 K/mm3 (0.00-0.031); Immature Granulocyte Percent A 0.2 % (0-0.5); Immature Platelet Fraction Pct 15.1 % (0.9-11.2); Lymphocytes Absolute Auto 0.76 K/mm3 (0.9-3.2); Lymphocytes Percent Auto 13.9 % (18.3-44.2); Mean Corpuscular HGB Conc 26.9 g/dl (32-36); Mean Corpuscular Hemoglobin 23.1 pg (26-34); Mean Platelet Volume 13.1 fl (7.4-10.4); Monocytes Absolute Auto 0.5 K/mm3 (0.1-0.6); Neutrophils Absolute Auto 4.1 K/mm3 (1.3-6.7); Neutrophils Percent Auto 75.6 % (45.5-73.1); Nucleated Red Blood Cells Perc 0.5 % (0.0-0.2); Platelet Count Result 231 k/mm3 (150-375); Red Blood Count 2.29 M/mm3 (4.2-5.4); White Blood Count 5.5 K/mm3 (4.5-10.0)
[2022-08-02 19:21] LABS: Alanine Aminotransferase 21 U/L (6-35); Albumin Level 3.8 g/dL (3.5-5.1); Alkaline Phosphatase 82 U/L (38-126); Anion Gap 9 mmol/L (8-16); Aspartate Amino Transferase 35 U/L (14-36); Bilirubin,Total 0.5 mg/dL (0.2-1.3); Blood Urea Nitrogen 19 mg/dL (7-17); Calcium 9.1 mg/dL (8.4-10.2); Carbon Dioxide 23 mmol/L (22-30); Chloride 106 mmol/L (98-107); Cholesterol 67 mg/dL (0-200); Estimated Glomerular Filt Rate 54; Glucose 98 mg/dL (65-110); HDL Direct 20 mg/dL; Potassium 3.9 mmol/L (3.4-5.0); Sodium 138 mmol/L (137-145); Triglycerides 71 mg/dL (<150)
[2022-08-02 19:32] LABS: LDL Cholesterol Direct 30 mg/dL
[2022-08-02 19:46] LABS: Hemoglobin 5.3 g/dL (12.0-15.0)
[2022-08-02 19:47] LABS: Hematocrit 19.7 % (37.0-47.0)
[2022-08-02 19:49] LABS: Anisocytosis 1+ (NORMAL); Hypochromasia 2+ (NORMAL); Schistocytes None Seen (NORMAL)
[2022-08-02 19:50] LABS: Platelet Estimate Adequate (Adequate)
[2022-08-02 20:05] LABS: Vitamin B12 > 1000.0 pg/mL (239-931)
[2022-08-02 22:45] LABS: Vitamin D 25 Hydroxy 60.7 ng/mL
[2022-08-09 08:48] LABS: Reference Lab Test Result 5.8
== END 2022-08-02 11:50 | disposition home or self-care (01) ==
LOC: ANHGOSHLAB 11:54
PROVIDERS: PCP Family Medicine; Visit Provider Family Medicine
DX: Z00.00 Encounter for general adult medical examination without abnormal findings (principal); E55.9 Vitamin D deficiency, unspecified; E53.8 Deficiency of other specified B group vitamins; E78.5 Hyperlipidemia, unspecified; I10 Essential (primary) hypertension; F32.9 Major depressive disorder, single episode, unspecified; R73.9 Hyperglycemia, unspecified
CPT/HCPCS: 36415; 80053; 80061; 82306; 82607; 83036; 84443; 85025; 85055

== ENCOUNTER 2022-08-02 20:23 | Inpatient (IN) | payer MEDICARE, SELFPAY ==
[2022-08-02] VITALS (15 sets, daily range): BP systolic 107–158; BP diastolic 34–86; PULSE 60–70; RESP 13–21; TEMP 36.1–36.2; O2SAT 94–100
--- NOTE | ~2022-08-02 | XR_ITS ---
EXAMINATION: XR chest 1V portable Exam Date/Time: 08/02/2022 21:25 PIPING DRAFTER HISTORY: anemia Comparison: 03/25/2021. RESULT: Lines, tubes, and devices: Intact sternotomy wires. Lungs and pleura: Clear. Cardiomediastinal silhouette: Stable. Other: No acute osseous or upper abdominal finding. IMPRESSION: No acute cardiopulmonary process. Reviewed, dictated and finalized at location K. NG DRAFTER
--- NOTE | 2022-08-02 21:20 | ECG_ITS ---
Measurements Intervals [place] Rate: 63 P: 59 MT: 182 QRS: -3 QRSD: 113 T: 182 QT: 426 QTc: 437 Interpretive Statements SINUS RHYTHM VENTRICULAR PREMATURE COMPLEX INTRAVENTRICULAR CONDUCTION DELAY ST-T WAVE ABNORMALITY IN LAT/HIGH LAT LEADS- CONSIDER ISCHEMIA BASELINE WANDER- I, II, III, AVR, AVL, AVF ABNORMAL ECG COMPARED TO ECG 04/12/2022 17:56:10 SINUS [address] NOW PRESENT ST-T WAVE ABNORMALITY NOW PRESENT Electronically Signed On 08-02-2022 23:06:53 RETURNED CASE INSPECTOR by Mian De D.O.
--- NOTE | 2022-08-02 21:21 | ED.GENADULT ---
HPI - General Adult General Chief complaint: Recheck/Abnormal Lab/Rx Stated complaint: 4.5 hemoglobin Time Seen by Provider: 08/02/22 20:44 History of Present Illness HPI narrative: This is a 77-year-old female presenting ED with chief complaint of abnormal labs. Patient was seen by her primary care physician and on basic lab work screening she was found have a hemoglobin of 4.5. Patient does note that she has been feeling more tired over the last 3 weeks but has gotten significantly worse over the last 3 days. She now has dyspnea on exertion and is unable to walk across the room without becoming short of breath. Patient denies melena or hematochezia. She has been anemic in the past they have never been able to find the source. Patient last had a colonoscopy 5-6 years ago and was told she would not need another 1 for 10 years. Patient denies chest pain, fever, chills or abdominal pain. She has been having some cramping in her legs since this started. Related Data Home Medications Medication Instructions Recorded Confirmed amlodipine 5 mg tablet 5 mg PO DAILY 09/21/19 08/02/22 aspirin 81 mg chewable tablet 81 mg PO DAILY 09/21/19 08/02/22 folic acid 400 mcg tablet 0.4 mg PO BID 09/21/19 08/02/22 metoprolol tartrate 25 mg tablet 12.5 mg PO BID 09/21/19 08/02/22 omega-3 fatty acids-fish oil 340 1 cap PO DAILY 09/21/19 08/02/22 mg-1,000 mg capsule atorvastatin 40 mg tablet 40 mg PO QHS 07/01/21 08/02/22 calcium carbonate 600 mg-vitamin 1 cap PO DAILY 01/10/22 08/02/22 D3 12.5 mcg (500 unit) capsule (Calcium 600 with Vitamin D3) Allergies Allergy/AdvReac Type Severity Reaction Status Date / Time No Known Allergies Allergy Verified 08/02/22 10:33 Review of Systems Review of Systems: CONSTITUTIONAL: Denies night sweats. EYES: No eye pain ENT: Denies rhinorrhea CARDIOVASCULAR: Denies palpitations RESPIRATORY: Denies hemoptysis GASTROINTESTINAL: Denies hematemesis GENITOURINARY: Denies hematuria. SKIN: Denies rash MUSCULOSKELETAL: Denies myalgia. NEUROLOGIC: Denies weakness. PSYCHIATRIC: Denies delusions PMFSH Past Medical History Medical History Acute cerebrovascular accident (CVA) 03/2021 Anxiety Arthritis B12 deficiency Chronic low back pain Coronary artery disease Depression Heart attack History of stroke 03/2021 HLD (hyperlipidemia) HTN (hypertension) Non-STEMI (non-ST elevated myocardial infarction) September 2019 with left heart catheterization demonstrating modest left main disease, total occlusion of LAD and right coronary artery proximally, modest 40-50% stenosis of the 1st obtuse marginal branch of the circumflex, remaining patency of GARCIA to LAD, patency of saphenous vein graft to RCA, occlusion of the proximal aspect of the vein graft to the 1st obtuse marginal branch circumflex, mild left ventricular systolic dysfunction with posterior basal akinesis with good ejection fraction with medical therapy recommended. 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
[2022-08-02 21:53] LABS: Immature Reticulocyte Fraction 29.8 % (3.0-15.9); Reticulocyte Hemoglobin Conten 21.4 pg (28.2-35.7); Reticulocyte Percent 1.69 % (0.7-4.3); Reticulocytes Absolute 0.04 B/L (32.2-175.7)
[2022-08-02 21:53] LABS: Basophils Absolute Auto 0.1 K/mm3 (0.0-0.1); Eosinophils Absolute Auto 0.1 K/mm3 (0-0.3); Eosinophils Percent Auto 1.3 % (0-4.4); Immature Granulocyte Absolute 0.01 K/mm3 (0.00-0.031); Immature Granulocyte Percent A 0.2 % (0-0.5); Lymphocytes Absolute Auto 1.36 K/mm3 (0.9-3.2); Lymphocytes Percent Auto 26.1 % (18.3-44.2); Mean Corpuscular HGB Conc 26.6 g/dl (32-36); Mean Corpuscular Hemoglobin 23.1 pg (26-34); Monocytes Absolute Auto 0.6 K/mm3 (0.1-0.6); Monocytes Percent Auto 11.7 % (2.6-8.5); Neutrophils Absolute Auto 3.1 K/mm3 (1.3-6.7); Neutrophils Percent Auto 59.7 % (45.5-73.1); Nucleated Red Blood Cells Perc 0.6 % (0.0-0.2); Platelet Count Result 211 k/mm3 (150-375); Red Blood Count 2.16 M/mm3 (4.2-5.4); Red Cell Distribution Width 16.7 % (11.5-14.5); White Blood Count 5.2 K/mm3 (4.5-10.0)
[2022-08-02 21:55] LABS: Glucose Point of Care 96 mg/dl (65-105)
[2022-08-02 22:05] LABS: INR 1.5; Partial Thromboplastin Time 28.6 SECONDS (22.3-36.8); Prothrombin Time 17.2 Seconds (11.1-14.7)
[2022-08-02] MEDS: HYDROcodone/acetaminophen (*CRX) 5-325 MG TABLET 1 TAB PO (22:11)
[2022-08-02 22:17] LABS: Alanine Aminotransferase 24 U/L (6-35); Albumin Level 3.8 g/dL (3.5-5.1); Alkaline Phosphatase 82 U/L (38-126); Anion Gap 11 mmol/L (8-16); Aspartate Amino Transferase 28 U/L (14-36); Bilirubin,Total 0.4 mg/dL (0.2-1.3); Blood Urea Nitrogen 20 mg/dL (7-17); Carbon Dioxide 21 mmol/L (22-30); Chloride 105 mmol/L (98-107); Estimated CRCL calculation 47 ml/min; Estimated Glomerular Filt Rate 48; Glucose 88 mg/dL (65-110); Potassium 3.9 mmol/L (3.4-5.0); Sodium 137 mmol/L (137-145)
[2022-08-02 22:18] LABS: Lactic Acid Reflex 2.1 mmol/L (0.7-2.0)
[2022-08-02 22:26] LABS: Troponin I < 0.012 ng/mL (0.000-0.034)
[2022-08-02 22:28] LABS: Influenza A QL RT-PCR Negative (Negative); Influenza B QL RT-PCR Negative (Negative); SARS-CoV-2 RNA PCR Negative
[2022-08-02 22:30] LABS: Hematocrit 18.8 % (37.0-47.0)
[2022-08-02 22:36] LABS: Schistocytes 1+ (NORMAL)
[2022-08-02 22:37] LABS: Anisocytosis 2+ (NORMAL); Macrocytosis 1+ (NORMAL); Microcytosis 2+ (NORMAL); Ovalocytes 1+ (NORMAL); Stomatocytes 1+ (NORMAL); Target Cells 1+ (NORMAL)
[2022-08-02 22:38] LABS: Hypochromasia 2+ (NORMAL); Platelet Estimate Adequate (Adequate)
--- NOTE | 2022-08-02 22:49 | PM.IMHP ---
H&P: HPI History of Present Illness Date/Time: 08/02/22 22:49 Chief Complaint: shortness of breath Narrative: this is a 77-year-old female with past medical history significant for chronic anemia, hypertension, chronic lower back pain, stroke, coronary artery disease, restless leg syndrome, tobacco dependence. patient presented to the emergency room for evaluation after she was found to have a hemoglobin of 4.5 at her primary care physician's office she has had increasingly worsening shortness of breath, fatigue, feeling tired for the last several weeks or so denies any fevers, rigors, chills, a sputum production, nausea, vomiting, abdominal pain, hematemesis, melena, bright red blood per rectum, weight loss or change in stool character. Patient is been admitted for further evaluation management and treatment she will receive blood transfusions as well as needed. Review of Systems Review of Systems: Shortness of breath, fatigue, low hemoglobin. Constitutional: Constitutional: Denies chills, Reports fatigue, Denies fever(s), Reports lethargy and Denies poor appetite Eyes: Eyes: Denies change in vision ENT: Denies dysphagia, Denies vertigo, Denies dizziness and Denies odynophagia Cardiovascular: Cardiovascular: Denies chest pain, Denies leg edema and Reports dyspnea on exertion Respiratory: Respiratory: Denies chest congestion, Denies cough and Denies pain on inspiration Gastrointestinal: Gastrointestinal: Denies melena, Denies hematochezia, Denies coffee ground emesis, Denies dyspepsia, Denies heartburn, Denies diarrhea, Denies nausea and Denies vomiting Genitourinary: Genitourinary: Denies dysuria Musculoskeletal: Musculoskeletal: Denies joint swelling and Denies muscle weakness Integumentary/Breasts: Skin/Breast: Denies rash Neurologic: Denies vertigo, Denies dizziness, Denies focal weakness and Denies Sensory deficit (Neuro) Psychiatric: Psychiatric: Reports no additional psychiatric complaints and Reports as per HPI Endocrine: Endocrine: Denies cold intolerance, Denies flushing, Denies heat intolerance, Denies polyphagia, Denies polydipsia and Denies palpitations Hematologic/Lymphatic: Hematologic/Lymphatic: Reports no additional hematologic/lymphatic complaints and Reports as per HPI Allergic/Immunologic: Allergic/Immunologic: Reports no additional allergic/immunologic complaints and Reports as per HPI FOR[facility]LY [facility], [facility] Past Medical History Medical History Acute cerebrovascular accident (CVA) 03/2021 Anxiety Arthritis B12 deficiency Chronic low back pain Coronary artery disease Depression Heart attack History of stroke 03/2021 HLD (hyperlipidemia) HTN (hypertension) Middle cerebral artery aneurysm Non-STEMI (non-ST elevated myocardial infarction) September 2019 with left heart catheterization demonstrating modest left main disease, total occlusion of LAD and right coronary artery proximally, modest 40-50% stenosis of the 1st obtuse marginal branch of the circumflex, remaining patency of GARCIA to LAD, patency of saphenous vein graft to RCA, occlusion of the proximal aspect of the vein graft to the 1st obtuse marginal branch circumflex, mild left ventricular systolic dysfunction with posterior basal akinesis with good ejection fraction with medical therapy recommended. Restless legs syndrome Synostosis (cranial) Tobacco use Surgical History Surgical History (Updated 08/03/22 @ 16:10 by Ivet Jones, BOAT WRAPPER) H/O cataract extraction History of bladder suspension procedure (~2006) History of carpal tunnel surgery Left wrist History of carpal tunnel surgery of left wrist (~2008) History of facial surgery Tongue surgery left face due to benign tumor - History of lumbosacral spine surgery 06/2020 History of lumpectomy of left breast (~1990) S/P CABG x 3 2007 GARCIA to left anterior descending, vein graft to PDA and to the obtuse marginal S/P cubital tunnel release Left - 2008 Family History Family
[2022-08-02 23:06] LABS: Hemoglobin 4.9 g/dL (12.0-15.0)
[2022-08-02 23:07] LABS: Hematocrit 17.7 % (37.0-47.0)
[2022-08-02] MEDS: SODIUM CHLORIDE 0.9% IV 250 ML 30 ML IV CONT (23:32)
[2022-08-02] MEDS: TUBING, BLOOD SET 1 EACH XX (23:32)
[2022-08-03] VITALS (14 sets, daily range): BP systolic 134–173; BP diastolic 46–97; PULSE 58–68; RESP 14–20; TEMP 35.8–36.6; O2SAT 92–98; BMI 34.4
[2022-08-03 00:50] LABS: Reflex Lactic Acid Yes or No Add Lactic
[2022-08-03 01:04] LABS: Iron 17 ug/dL (37-170)
[2022-08-03 01:13] LABS: Percent Iron Saturation 4 % (20-50)
[2022-08-03 01:16] LABS: Bilirubin,Total 0.3 mg/dL (0.2-1.3); Lactate Dehydrogenase 181 U/L (120-246); Transferrin 351 mg/dL (206-381)
--- NOTE | 2022-08-03 01:17 | ADMGEN ---
This patient, Yvonne Cunningham, was admitted to Medical Room 247-. Patient/family oriented to hospital policies and general routines including ID bracelet, bed and alarms, visiting hours, pain management, procedures, bathroom and other care routines, personal items, smoking policy, room service/diet, and visiting hours. Information on how to activate the Rapid Response Team has been discussed. Patient/Family are encouraged to report perceived risks to care and to ask questions if they do not understand what they are told or what they should do.
[2022-08-03 01:39] LABS: Ferritin 7.02 ng/mL (11.1-264)
[2022-08-03] MEDS: ACETAMINOPHEN 500 MG TABLET 1000 MG PO (03:04)
[2022-08-03] MEDS: GABAPENTIN 300 MG CAPSULE PO ×3 (03:04→22:26)
[2022-08-03 04:50] LABS: Folic Acid > 20.0 ng/mL (2.76->20); Vitamin B12 > 1000.0 pg/mL (239-931)
[2022-08-03 05:29] LABS: Lactic Acid 0.7 mmol/L (0.7-2.0)
[2022-08-03 06:31] LABS: Alanine Aminotransferase 24 U/L (6-35); Albumin Level 3.6 g/dL (3.5-5.1); Alkaline Phosphatase 76 U/L (38-126); Anion Gap 4 mmol/L (8-16); Aspartate Amino Transferase 33 U/L (14-36); Bilirubin,Total 1.1 mg/dL (0.2-1.3); Blood Urea Nitrogen 18 mg/dL (7-17); Calcium 8.8 mg/dL (8.4-10.2); Carbon Dioxide 22 mmol/L (22-30); Chloride 108 mmol/L (98-107); Estimated CRCL calculation 58 ml/min; Estimated Glomerular Filt Rate > 60; Glucose 79 mg/dL (65-110); Potassium 3.8 mmol/L (3.4-5.0); Sodium 134 mmol/L (137-145)
[2022-08-03 06:33] LABS: Hematocrit 25.2 % (37.0-47.0); Hemoglobin 7.5 g/dL (12.0-15.0); Immature Platelet Fraction Pct 14.1 % (0.9-11.2); Mean Corpuscular HGB Conc 29.8 g/dl (32-36); Mean Corpuscular Hemoglobin 26.3 pg (26-34); Mean Corpuscular Volume 88.4 fl (80-100); Mean Platelet Volume 12.7 fl (7.4-10.4); Platelet Count Result 189 k/mm3 (150-375); Red Blood Count 2.85 M/mm3 (4.2-5.4); Red Cell Distribution Width 16.6 % (11.5-14.5); White Blood Count 5.2 K/mm3 (4.5-10.0)
[2022-08-03] MEDS: IRON SUCROSE COMPLEX 500 MG in SODIUM CHLORIDE 0.9% IV 250 ML 78.57 MG IVPB (09:47)
[2022-08-03] MEDS: PANTOPRAZOLE SODIUM IV 40 MG VIAL IV PUSH ×2 (10:33→22:25)
[2022-08-03] MEDS: PARoxetine 20 MG TABLET 40 MG PO (10:33)
[2022-08-03] MEDS: buPROPion HCL SR (12 HR) 150 MG TAB PO ×2 (10:33→22:25)
[2022-08-03] MEDS: lisinopriL 10 MG TABLET PO (10:34)
[2022-08-03] MEDS: amLODIPine BESYLATE 5 MG TABLET PO (10:34)
[2022-08-03] MEDS: METOPROLOL TARTRATE 12.5 MG TABLET PO ×2 (10:34→22:25)
--- NOTE | 2022-08-03 11:19 | PM.IMPN ---
Progress Note: A&P Assessment and Plan (1) Acute on chronic anemia: Code(s): D64.9 - Anemia, unspecified Status: Acute Assessment and Plan: Patient presented to the ED with hgb 4.9. She reports taking generic Aleve once daily for arthritis pain intermittently. FOBT pending. given 2 units PRBC on admission. Continue protonix 40 mg IV Q12 hours Trend H&H and transfuse if hemoglobin is less than 7 or less than 8 and symptomatic Serum iron, saturation, and ferritin low, TIBC high. Give Venofer 500 mg IV Q24 hours x 3 doses. B12 and folate within normal limits. Continue home B12 and folic acid Consult GI for evaluation and appreciate recommendations. Hold aspirin and Plavix (2) HTN (hypertension): Qualifiers: Hypertension type: primary hypertension Qualified Code(s): I10 - Essential (primary) hypertension Code(s): I10 - Essential (primary) hypertension Status: Chronic Assessment and Plan: chronic, BP 107/34 to 173/61, heart rate 63 Continue lisinopril, metoprolol and amlodipine at home doses as BP allows, with hold parameters (3) Restless legs syndrome: Code(s): G25.81 - Restless legs syndrome Status: Chronic Assessment and Plan: chronic, stable. continue ropinirole (4) Coronary artery disease: Qualifiers: Coronary Disease-Associated Artery/Lesion type: bypass graft [place] vs. transplanted heart: [place] heart Associated angina: without angina Qualified Code(s): I25.810 - Atherosclerosis of coronary artery bypass graft(s) without angina pectoris Code(s): I25.10 - Atherosclerotic heart disease of [place] coronary artery without angina pectoris Status: Chronic Assessment and Plan: Chronic, stable, history of CABG Hold aspirin and Plavix until acute GI bleed is ruled out Continue statin, amlodipine, lisinopril, and metoprolol at home doses as BP tolerates Monitor vitals. No active chest pain (5) Osteoarthritis: Qualifiers: Osteoarthritis location: unspecified site Osteoarthritis type: unspecified Qualified Code(s): M19.90 - Unspecified osteoarthritis, unspecified site Code(s): M19.90 - Unspecified osteoarthritis, unspecified site Status: Chronic Assessment and Plan: Chronic, stable, she has chronic lower back pain and chronic hip pain Continue gabapentin at home dose and PRN tramadol We discussed avoiding NSAIDs such as Aleve (6) Tobacco use: Code(s): Z72.0 - Tobacco use Status: Chronic Assessment and Plan: Current everyday smoker with 55 pack-year smoking history. Nicotine patch while inpatient Counseled to quit Plan Code status: Full code Disposition: Estimated length of stay 1-2 days, discharge home when hemoglobin stable Time Spent With Patient Time with patient: 15 - 25 minutes Subjective Date/time seen: 08/03/22 11:19 She reports improved fatigue, activity intolerance and dyspnea with exertion. No stools at this time. She denies evidence of melena, hematochezia, hematemesis, or abdominal pain. She has had a prior work-up in the past for acute anemia but no bleeding source was found she reports. No recent colonoscopy. Review of Systems Review of Systems: All systems reviewed & are unremarkable except as noted in HPI and below Exam Narrative: General: No acute distress.? Well-developed and well-groomed?older adult female. Lying in bed. Mental Status/Psych: Awake, alert and oriented x4 with clear speech. Neutral mood and affect. Pleasant and cooperative. Skin: Skin fair, warm, dry and intact without rashes or lesions. No open wounds. HEENT: Normocephalic. Conjunctivae are clear. Sclera is non-icteric. EOM intact. PERRL. Grossly normal hearing. Oral mucosa pale. Tongue midline. Oropharynx within normal limits. Neck: Supple. Trachea midline. No JVD. Heart: S1 and S2 regular rate and rhythm. No murmurs, gallops, or rubs auscultated. [place]
[2022-08-03] MEDS: LACTATED RINGERS 1,000 ML 70 ML IV CONT (13:04)
[2022-08-03 14:40] LABS: Hematocrit 25.8 % (37.0-47.0); Hemoglobin 7.6 g/dL (12.0-15.0)
[2022-08-03] MEDS: ATORVASTATIN 40 MG TABLET PO (22:25)
[2022-08-03] MEDS: rOPINIRole HCL 1 MG TABLET 2 MG PO (22:25)
[2022-08-04] MEDS: LACTATED RINGERS 1,000 ML 70 ML IV CONT (00:16)
[2022-08-04 03:37] VITALS: BP 146/52; PULSE 63; RESP 20; TEMP 36.2; O2SAT 94
[2022-08-04 05:57] LABS: Hematocrit 24.9 % (37.0-47.0); Hemoglobin 7.2 g/dL (12.0-15.0); Immature Platelet Fraction Pct 13.4 % (0.9-11.2); Mean Corpuscular HGB Conc 28.9 g/dl (32-36); Mean Corpuscular Hemoglobin 25.7 pg (26-34); Mean Corpuscular Volume 88.9 fl (80-100); Platelet Count Result 194 k/mm3 (150-375); Red Cell Distribution Width 16.9 % (11.5-14.5); White Blood Count 5.7 K/mm3 (4.5-10.0)
[2022-08-04 06:02] LABS: Anion Gap 5 mmol/L (8-16); Blood Urea Nitrogen 13 mg/dL (7-17); Calcium 8.5 mg/dL (8.4-10.2); Carbon Dioxide 23 mmol/L (22-30); Chloride 107 mmol/L (98-107); Estimated CRCL calculation 73 ml/min; Estimated Glomerular Filt Rate > 60; Glucose 91 mg/dL (65-110); Potassium 3.9 mmol/L (3.4-5.0); Sodium 135 mmol/L (137-145)
--- NOTE | 2022-08-04 08:11 | WPDGICN ---
Assessment and Plan Assessment and plan (1) LIBERTAD (iron deficiency anemia): Code(s): D50.9 - Iron deficiency anemia, unspecified Status: Acute Assessment and Plan: Patient found to have rather profound iron deficiency anemia. No obvious signs of bleeding. Stool in the ER was heme-negative. On the floor repeat stool Hemoccult positive. Plan for colonoscopy an EGD at this time. Preparation will be performed today with endoscopy tomorrow. Further recommendations after endoscopy. GI Consult Note Consult date/time: 08/04/22 08:11 Reason for consult: Anemia HPI: Yvonne Cunningham is a 77 year old female presents to the hospital with profound anemia. Patient reports over last 2-3 weeks she has had progressive weakness and fatigue. Patient presented to her primary care physician who found that she had profound anemia with a hemoglobin approximately 5. Patient denies any obvious signs of bleeding. She has had no abdominal pain. Patient was seen because of diarrhea 2 years ago at that time colonoscopy revealed mild colitis. Upper GI was unremarkable small bowel series revealed mild enteritis in the small bowel. Diarrhea subsequently improved. Recent blood counts this summer were within normal limits. After admission hospital. Patient was found to have iron deficient indices. Patient has a distant history of B12 deficiency for which she is on B12 replacement. Recent B12 levels are found to be normal. Patient subsequently was admitted the hospital because of profound anemia for transfusion. Review of Systems Review of Systems: Review of systems noncontributory. [facility] Past Medical History Medical History Acute cerebrovascular accident (CVA) 03/2021 Anxiety Arthritis B12 deficiency Chronic low back pain Coronary artery disease Depression Heart attack History of stroke 03/2021 HLD (hyperlipidemia) HTN (hypertension) Middle cerebral artery aneurysm Non-STEMI (non-ST elevated myocardial infarction) September 2019 with left heart catheterization demonstrating modest left main disease, total occlusion of LAD and right coronary artery proximally, modest 40-50% stenosis of the 1st obtuse marginal branch of the circumflex, remaining patency of GARCIA to LAD, patency of saphenous vein graft to RCA, occlusion of the proximal aspect of the vein graft to the 1st obtuse marginal branch circumflex, mild left ventricular systolic dysfunction with posterior basal akinesis with good ejection fraction with medical therapy recommended. Restless legs syndrome Synostosis (cranial) Tobacco use Surgical History Surgical History (Updated 08/03/22 @ 16:10 by Ivet Jones APRN) H/O cataract extraction History of bladder suspension procedure (~2006) History of carpal tunnel surgery Left wrist History of carpal tunnel surgery of left wrist (~2008) History of facial surgery Tongue surgery left face due to benign tumor - History of lumbosacral spine surgery 06/2020 History of lumpectomy of left breast (~1990) S/P CABG x 3 2007 GARCIA to left anterior descending, vein graft to PDA and to the obtuse marginal S/P cubital tunnel release Left - 2009 Family History Family History Father Heart disease of heart disease Coronary artery disease Mother Heart disease of heart disease Coronary artery disease Sibling Heart disease 2 brothers have had CAD and stents Coronary artery disease Social History Social History Social History: The patient lives in her own home in [place]. She has 2 daughters and 1 son. Patient used to work for [employer]. The patient has been smoking for approximately 25-30 years. She quit at 1 point and then restarted. She is currently smoking 1/3 of a pack per day. Carlene Loja, her daughter, is her durable power litigation attorney associate for heal
[2022-08-04] MEDS: GABAPENTIN 300 MG CAPSULE PO ×3 (08:18→20:55)
[2022-08-04] MEDS: amLODIPine BESYLATE 5 MG TABLET PO (08:19)
[2022-08-04 08:20] VITALS: PULSE 60
[2022-08-04] MEDS: METOPROLOL TARTRATE 12.5 MG TABLET PO ×2 (08:20→20:47)
[2022-08-04] MEDS: PARoxetine 20 MG TABLET 40 MG PO (08:20)
[2022-08-04] MEDS: buPROPion HCL SR (12 HR) 150 MG TAB PO ×2 (08:20→20:50)
[2022-08-04] MEDS: lisinopriL 10 MG TABLET PO (08:21)
[2022-08-04] MEDS: IRON SUCROSE COMPLEX 500 MG in SODIUM CHLORIDE 0.9% IV 250 ML 78.57 MG IVPB (08:22)
[2022-08-04] MEDS: PANTOPRAZOLE SODIUM IV 40 MG VIAL IV PUSH ×2 (08:22→20:50)
[2022-08-04 09:08] VITALS: O2SAT 91
[2022-08-04] MEDS: PEG (High)/E-LYTE SOLN 4,000 ML BTL 4000 ML PO (10:01)
[2022-08-04 12:00] LABS: Hematocrit 26.3 % (37.0-47.0); Hemoglobin 7.6 g/dL (12.0-15.0)
--- NOTE | 2022-08-04 13:00 | PC.NURSE ---
On 08/04/22, the student, [Gloria Elder], provided care and completed [employer] documentation on this patient. I have reviewed the student's documentation and agree with the findings.
[2022-08-04 14:19] VITALS: BP 160/59; PULSE 68; RESP 18; TEMP 36.2; O2SAT 100
--- NOTE | 2022-08-04 17:39 | PM.IMPN ---
Progress Note: A&P Assessment and Plan (1) Acute on chronic anemia: Code(s): D64.9 - Anemia, unspecified Status: Acute Assessment and Plan: Patient presented to the ED with hgb 4.9. She reports taking generic Aleve once daily for arthritis pain intermittently. FOBT negative in ED, but positive on sample from the floor. given 2 units PRBC on admission. Continue protonix 40 mg IV Q12 hours Trend H&H and transfuse if hemoglobin is less than 7 or less than 8 and symptomatic Serum iron, saturation, and ferritin low, TIBC high. Give Venofer 500 mg IV Q24 hours x 3 doses. 08/04 - Day 2 of 3. B12 and folate within normal limits.? Continue home B12 and folic acid Consult GI for evaluation and appreciate recommendations. Hold aspirin and Plavix Plan for EGD and colonoscopy tomorrow. (2) HTN (hypertension): Qualifiers: Hypertension type: primary hypertension Qualified Code(s): I10 - Essential (primary) hypertension Code(s): I10 - Essential (primary) hypertension Status: Chronic Assessment and Plan: chronic, BP 146/52, heart rate 64 Continue lisinopril, metoprolol and amlodipine at home doses as BP allows, with hold parameters (3) Restless legs syndrome: Code(s): G25.81 - Restless legs syndrome Status: Chronic Assessment and Plan: continue home meds (4) Coronary artery disease: Qualifiers: Associated angina: without angina Coronary Disease-Associated Artery/Lesion type: bypass graft [place] vs. transplanted heart: [place] heart Qualified Code(s): I25.810 - Atherosclerosis of coronary artery bypass graft(s) without angina pectoris Code(s): I25.10 - Atherosclerotic heart disease of [place] coronary artery without angina pectoris Status: Chronic Assessment and Plan: Chronic, stable, history of CABG Hold aspirin and Plavix until acute GI bleed is ruled out Continue statin, amlodipine, lisinopril, and metoprolol at home doses as BP tolerates Monitor vitals.? No active chest pain (5) Osteoarthritis: Qualifiers: Osteoarthritis location: unspecified site Osteoarthritis type: unspecified Qualified Code(s): M19.90 - Unspecified osteoarthritis, unspecified site Code(s): M19.90 - Unspecified osteoarthritis, unspecified site Status: Chronic Assessment and Plan: Chronic, stable, she has chronic lower back pain and chronic hip pain Continue gabapentin at home dose and PRN tramadol Avoid NSAIDs such as Aleve (6) Tobacco use: Code(s): Z72.0 - Tobacco use Status: Chronic Assessment and Plan: Current everyday smoker with 55 pack-year smoking history.? nicotine patch as needed Research And Development Specialist to quit smoking Plan Code status:? Full code Disposition:? Possible discharge home tomorrow following endoscopy if hemoglobin stable Time Spent With Patient Time with patient: 15 - 25 minutes Subjective Date/time seen: 08/04/22 17:39 She denies chest pain, SOB, dizziness, palpitations, abd pain, nausea or vomiting. She started colonoscopy prep today and has had multiple BMs. Review of Systems Review of Systems: All systems reviewed & are unremarkable except as noted in HPI and below Exam Narrative: General: No acute distress.? Well-developed and well-groomed?older adult female. Lying in bed. Mental Status/Psych: Awake, alert and oriented x4 with clear speech. Neutral mood and affect. Pleasant and cooperative. Skin: fair, warm, dry and intact without rashes or lesions. No open wounds. HEENT: Normocephalic. Sclera is non-icteric. Oral mucosa moist. Pupils equal and round. Neck: unremarkable. Heart: S1 and S2 regular rate and rhythm. No murmurs, gallops, or rubs auscultated. Chest: Respirations even and unlabored. Lung sounds are clear to auscultation in all lobes bilaterally without wheezes, rhonchi, or rales. Abdomen: Soft, round and nontender to palpation.? Bowel sounds present in all 4 quadrants. No
[2022-08-04 20:47] VITALS: PULSE 64
[2022-08-04] MEDS: ATORVASTATIN 40 MG TABLET PO (20:50)
[2022-08-04] MEDS: rOPINIRole HCL 1 MG TABLET 2 MG PO (20:51)
[2022-08-04 21:38] VITALS: BP 130/52; PULSE 52; RESP 18; TEMP 36.7; O2SAT 95
[2022-08-05] VITALS (8 sets, daily range): BP systolic 114–174; BP diastolic 44–93; PULSE 60–74; RESP 18–20; TEMP 36.1–36.6; O2SAT 93–97
[2022-08-05 06:23] LABS: Hemoglobin 7.3 g/dL (12.0-15.0); Immature Platelet Fraction Pct 13.8 % (0.9-11.2); Mean Corpuscular HGB Conc 29.2 g/dl (32-36); Mean Corpuscular Hemoglobin 25.3 pg (26-34); Mean Corpuscular Volume 86.5 fl (80-100); Mean Platelet Volume 12.7 fl (7.4-10.4); Platelet Count Result 186 k/mm3 (150-375); Red Blood Count 2.89 M/mm3 (4.2-5.4); Red Cell Distribution Width 17.3 % (11.5-14.5); White Blood Count 6.6 K/mm3 (4.5-10.0)
[2022-08-05] MEDS: IRON SUCROSE COMPLEX 500 MG in SODIUM CHLORIDE 0.9% IV 250 ML 78.57 MG IVPB (08:01)
[2022-08-05] MEDS: PANTOPRAZOLE SODIUM IV 40 MG VIAL IV PUSH ×2 (08:01→22:29)
[2022-08-05] MEDS: LACTATED RINGERS 1,000 ML 150 ML IV CONT ×3 (12:36→20:59)
--- NOTE | 2022-08-05 12:58 | WPDANESEPPF ---
Anes - Initial Pre Proc Eval Procedure: Operation Date: 08/05/22 14:00 Proposed Procedures p Esophagogastroduodenoscopy & Colonoscopy - Eulalio Sharma MD Date/Time: 08/05/22 12:58 Surgeon: Deepti Mcmahon MD Pre Op Diagnosis: anemia Patient Data Age: 77 Gender: F Height: 1.7 m Weight: 99.9 kg Last Vital Signs Temp 36.1 C L 08/05/22 12:26 Pulse 68 08/05/22 12:26 Resp 18 08/05/22 12:26 BP 159/78 H 08/05/22 12:26 Pulse Ox 96 08/05/22 12:26 O2 Del Method Room Air 08/05/22 12:26 Allergies Allergy/AdvReac Type Severity Reaction Status Date / Time No Known Allergies Allergy Verified 08/05/22 12:24 Home Medications Medication Instructions Recorded Confirmed Type amlodipine 5 mg tablet 5 mg PO DAILY 09/21/19 08/03/22 History aspirin 81 mg chewable tablet 81 mg PO DAILY 09/21/19 08/03/22 History folic acid 400 mcg tablet 0.4 mg PO BID 09/21/19 08/03/22 History metoprolol tartrate 25 mg tablet 12.5 mg PO BID 09/21/19 08/03/22 History omega-3 fatty acids-fish oil 340 1 cap PO DAILY 09/21/19 08/03/22 History mg-1,000 mg capsule nitroglycerin 0.4 mg sublingual 0.4 mg sublingual DIRECTED PRN 09/24/19 08/03/22 Rx tablet chest pain #25 tabs pantoprazole 40 mg tablet,delayed 40 mg PO DAILY #30 tabs 09/24/19 08/03/22 Rx release mecobalamin (vitamin B12) 1,000 1,000 mcg sublingual DAILY #90 tabs 07/09/20 08/03/22 Rx mcg disintegrating tablet,sublingual acetaminophen 325 mg tablet (Mapap 650 mg PO Q6H PRN Mild Pain (1-3) 03/28/21 08/03/22 Rx (acetaminophen)) Or Fever #0 tabs atorvastatin 40 mg tablet 40 mg PO QHS 07/01/21 08/03/22 History calcium carbonate 600 mg-vitamin 1 cap PO DAILY 01/10/22 08/03/22 History D3 12.5 mcg (500 unit) capsule (Calcium 600 with Vitamin D3) lisinopril 10 mg tablet 10 mg PO DAILY #90 tabs 02/28/22 08/03/22 Rx clopidogrel 75 mg tablet 75 mg PO QAM #90 tabs 04/14/22 08/03/22 Rx cholecalciferol (vitamin D3) 50 50 mcg PO DAILY #90 caps 05/27/22 08/03/22 Rx mcg (2,000 unit) capsule paroxetine HCl 20 mg tablet 40 mg PO DAILY #180 tabs 05/30/22 08/03/22 Rx gabapentin 300 mg capsule 300 mg PO Q8H #270 caps 07/08/22 08/03/22 Rx bupropion HCl 150 mg tablet,12 hr 150 mg PO BID #180 tabs 08/02/22 08/03/22 Rx sustained-release ropinirole 2 mg tablet 2 mg PO .QHS #90 tabs 08/02/22 08/03/22 Rx tramadol 50 mg tablet 50 mg PO Q8H PRN pain #90 tabs 08/02/22 08/03/22 Rx Laboratory Tests 08/05/22 05:14 WBC 6.6 K/mm3 K/mm3 (4.5-10.0) RBC 2.89 M/mm3 L M/mm3 (4.2-5.4) Hgb 7.3 g/dL L g/dL (12.0-15.0) Hct 25.0 % L % (37.0-47.0) MCV 86.5 fl fl (80-100) MCH 25.3 pg L pg (26-34) MCHC 29.2 g/dl L g/dl (32-36) RDW 17.3 % H % (11.5-14.5) Plt Count 186 k/mm3 k/mm3 (150-375) MPV 12.7 fl H fl (7.4-10.4) % Immature Plt Fraction 13.8 % H % (0.9-11.2) Patient hx anesthesia problems: none Family hx anesthesia problems: none Results Review: All pre-operative results and documents have been reviewed as part of the pre-operative evaluation. [facility] Past Medical History Medical History Acute cerebrovascular accident (CVA) 03/2021 Anxiety Arthritis B12 deficiency Chronic low back pain Coronary artery disease Depression Heart attack History of stroke 03/2021 HLD (hyperlipidemia) HTN (hypertension) Middle cerebral artery aneurysm Non-STEMI (non-ST elevated myocardial infarction) September 2019 with left heart catheterization demonstrating modest left main disease, total occlusion of LAD and right coronary artery proximally, modest 40-50% stenosis of the 1st obtuse marginal branch of the circumflex, remaining patency of GARCIA to LAD, patency of saphenous vein graft to RCA, occlusion of the proximal aspect of the vein graft to the 1st obtuse marginal branch circumflex, mild left ventricular systolic dysfunction with posterior basal akinesis with good ejection fraction with medical therap
--- NOTE | 2022-08-05 13:17 | PC.NURSE ---
On 08/05/22, the student, [Debo Ruiz], provided care and completed [facility] documentation on this patient. I have reviewed the student's documentation and agree with the findings.
[2022-08-05] MEDS: lisinopriL 10 MG TABLET PO (15:06)
[2022-08-05] MEDS: amLODIPine BESYLATE 5 MG TABLET PO (15:06)
[2022-08-05] MEDS: PARoxetine 20 MG TABLET 40 MG PO (15:06)
[2022-08-05] MEDS: GABAPENTIN 300 MG CAPSULE PO ×2 (15:07→21:06)
[2022-08-05 16:13] LABS: Carcinoembryonic Antigen 5.4 ng/mL (0.0-3.0)
--- NOTE | 2022-08-05 16:48 | P.PNIM_ITS ---
Progress Note: A&P Assessment and Plan (1) Acute on chronic anemia: Code(s): D64.9 - Anemia, unspecified Status: Acute Assessment and Plan: Patient presented to the ED with hgb 4.9. She reports taking generic Aleve once daily for arthritis pain intermittently. * FOBT negative in ED, but positive on sample from the floor. * given 2 units PRBC on admission. * Continue protonix 40 mg IV Q12 hours * Trend H&H and transfuse if hemoglobin is less than 7 or less than 8 and symptomatic * Serum iron, saturation, and ferritin low, TIBC high. Give Venofer 500 mg IV Q24 hours x 3 doses. 08/04 - Day 2 of 3. * B12 and folate within normal limits.? Continue home B12 and folic acid * Consult GI for evaluation and appreciate recommendations. * Hold aspirin and Plavix * Plan for EGD and colonoscopy today. (2) HTN (hypertension): Qualifiers: Hypertension type: primary hypertension Qualified Code(s): I10 - Essential (primary) hypertension Code(s): I10 - Essential (primary) hypertension Status: Chronic Assessment and Plan: chronic, stable * Continue lisinopril, metoprolol and amlodipine at home doses as BP allows, with hold parameters (3) Restless legs syndrome: Code(s): G25.81 - Restless legs syndrome Status: Chronic Assessment and Plan: continue home meds (4) Coronary artery disease: Qualifiers: Associated angina: without angina Coronary Disease-Associated Artery/Lesion type: bypass graft [place] vs. transplanted heart: [place] heart Qualified Code(s): I25.810 - Atherosclerosis of coronary artery bypass graft(s) without angina pectoris Code(s): I25.10 - Atherosclerotic heart disease of [place] coronary artery without angina pectoris Status: Chronic Assessment and Plan: Chronic, stable, history of CABG * Hold aspirin and Plavix until acute GI bleed is ruled out * Continue statin, amlodipine, lisinopril, and metoprolol at home doses as BP tolerates * Monitor vitals.? No active chest pain (5) Osteoarthritis: Qualifiers: Osteoarthritis location: unspecified site Osteoarthritis type: unspecified Qualified Code(s): M19.90 - Unspecified osteoarthritis, unspecified site Code(s): M19.90 - Unspecified osteoarthritis, unspecified site Status: Chronic Assessment and Plan: Chronic, stable, she has chronic lower back pain and chronic hip pain * Continue gabapentin at home dose and PRN tramadol * Avoid NSAIDs such as Aleve (6) Tobacco use: Code(s): Z72.0 - Tobacco use Status: Chronic Assessment and Plan: Current everyday smoker with 55 pack-year smoking history.? * nicotine patch as needed * smoking cessation education for 5 minutes re: risks, pharm and nonpharm cessation methods. Plan Code status:? Full code Disposition:? Discharge pending endoscopy results Time Spent With Patient Time with patient: 15 - 25 minutes Subjective Date/time seen: 08/05/22 16:48 She reports clear stool after completing the bowel prep. She is awaiting EGD and colonoscopy today. No dizziness, chest pain, SOB, palpitations, fatigue, activity intolerance, abd pain, nausea or vomiting. Review of Systems Review of Systems: All systems reviewed & are unremarkable except as noted in HPI and below Exam Narrative: General: No acute distress.? Lying in bed. Mental Status/Psych: Awake, alert and oriented x4 with clear speech. Neutral mood and affect. Pleasant and cooperative.
--- NOTE | 2022-08-05 16:48 | PM.IMPN ---
Progress Note: A&P Assessment and Plan (1) Acute on chronic anemia: Code(s): D64.9 - Anemia, unspecified Status: Acute Assessment and Plan: Patient presented to the ED with hgb 4.9. She reports taking generic Aleve once daily for arthritis pain intermittently. FOBT negative in ED, but positive on sample from the floor. given 2 units PRBC on admission. Continue protonix 40 mg IV Q12 hours Trend H&H and transfuse if hemoglobin is less than 7 or less than 8 and symptomatic Serum iron, saturation, and ferritin low, TIBC high. Give Venofer 500 mg IV Q24 hours x 3 doses. 08/04 - Day 2 of 3. B12 and folate within normal limits.? Continue home B12 and folic acid Consult GI for evaluation and appreciate recommendations. Hold aspirin and Plavix Plan for EGD and colonoscopy today. (2) HTN (hypertension): Qualifiers: Hypertension type: primary hypertension Qualified Code(s): I10 - Essential (primary) hypertension Code(s): I10 - Essential (primary) hypertension Status: Chronic Assessment and Plan: chronic, stable Continue lisinopril, metoprolol and amlodipine at home doses as BP allows, with hold parameters (3) Restless legs syndrome: Code(s): G25.81 - Restless legs syndrome Status: Chronic Assessment and Plan: continue home meds (4) Coronary artery disease: Qualifiers: Associated angina: without angina Coronary Disease-Associated Artery/Lesion type: bypass graft [place] vs. transplanted heart: [place] heart Qualified Code(s): I25.810 - Atherosclerosis of coronary artery bypass graft(s) without angina pectoris Code(s): I25.10 - Atherosclerotic heart disease of [place] coronary artery without angina pectoris Status: Chronic Assessment and Plan: Chronic, stable, history of CABG Hold aspirin and Plavix until acute GI bleed is ruled out Continue statin, amlodipine, lisinopril, and metoprolol at home doses as BP tolerates Monitor vitals.? No active chest pain (5) Osteoarthritis: Qualifiers: Osteoarthritis location: unspecified site Osteoarthritis type: unspecified Qualified Code(s): M19.90 - Unspecified osteoarthritis, unspecified site Code(s): M19.90 - Unspecified osteoarthritis, unspecified site Status: Chronic Assessment and Plan: Chronic, stable, she has chronic lower back pain and chronic hip pain Continue gabapentin at home dose and PRN tramadol Avoid NSAIDs such as Aleve (6) Tobacco use: Code(s): Z72.0 - Tobacco use Status: Chronic Assessment and Plan: Current everyday smoker with 55 pack-year smoking history.? nicotine patch as needed smoking cessation education for 5 minutes re: risks, pharm and nonpharm cessation methods. Plan Code status:? Full code Disposition:? Discharge pending endoscopy results Time Spent With Patient Time with patient: 15 - 25 minutes Subjective Date/time seen: 08/05/22 16:48 She reports clear stool after completing the bowel prep. She is awaiting EGD and colonoscopy today. No dizziness, chest pain, SOB, palpitations, fatigue, activity intolerance, abd pain, nausea or vomiting. Review of Systems Review of Systems: All systems reviewed & are unremarkable except as noted in HPI and below Exam Narrative: General: No acute distress.? Lying in bed. Mental Status/Psych: Awake, alert and oriented x4 with clear speech. Neutral mood and affect. Pleasant and cooperative. Skin: fair, warm, dry and intact without rashes or lesions. No open wounds. HEENT: Normocephalic. Sclera is non-icteric. Oral mucosa moist. Pupils equal and round. Neck: unremarkable. Heart: S1 and S2 regular rate and rhythm. No murmurs, gallops, or rubs auscultated. Chest: Respirations even and unlabored. Lung sounds are clear to auscultation in all lobes bilaterally without wheezes, rhonchi, or rales. Abdomen: Soft, round and nontender to palpation.? Bowel s
[2022-08-05] MEDS: METOPROLOL TARTRATE 12.5 MG TABLET PO (21:06)
[2022-08-05] MEDS: ATORVASTATIN 40 MG TABLET PO (21:06)
[2022-08-05] MEDS: rOPINIRole HCL 1 MG TABLET 2 MG PO (21:06)
[2022-08-05] MEDS: buPROPion HCL SR (12 HR) 150 MG TAB PO (21:06)
[2022-08-05] MEDS: traMADol HCL (*CRX) 50 MG TABLET PO (22:17)
[2022-08-05] MEDS: LACTATED RINGERS 1,000 ML 70 ML IV CONT (22:37)
[2022-08-06] VITALS (11 sets, daily range): BP systolic 109–162; BP diastolic 46–93; PULSE 57–74; RESP 16–21; TEMP 36.1–36.3; O2SAT 94–98
[2022-08-06] MEDS: GABAPENTIN 300 MG CAPSULE PO ×3 (05:35→21:01)
[2022-08-06 06:17] LABS: Hematocrit 24.4 % (37.0-47.0); Mean Corpuscular HGB Conc 28.7 g/dl (32-36); Mean Corpuscular Hemoglobin 25.3 pg (26-34); Mean Corpuscular Volume 88.1 fl (80-100); Mean Platelet Volume 12.7 fl (7.4-10.4); Platelet Count Result 194 k/mm3 (150-375); Red Blood Count 2.77 M/mm3 (4.2-5.4); Red Cell Distribution Width 17.7 % (11.5-14.5); White Blood Count 7.6 K/mm3 (4.5-10.0)
[2022-08-06 06:31] LABS: Anion Gap 6 mmol/L (8-16); Blood Urea Nitrogen 7 mg/dL (7-17); Calcium 8.6 mg/dL (8.4-10.2); Carbon Dioxide 26 mmol/L (22-30); Chloride 103 mmol/L (98-107); Estimated CRCL calculation 73 ml/min; Estimated Glomerular Filt Rate > 60; Glucose 80 mg/dL (65-110); Magnesium 1.9 mg/dL (1.6-2.3); Potassium 3.4 mmol/L (3.4-5.0); Sodium 135 mmol/L (137-145)
[2022-08-06] MEDS: buPROPion HCL SR (12 HR) 150 MG TAB PO ×2 (08:21→20:41)
[2022-08-06] MEDS: amLODIPine BESYLATE 5 MG TABLET PO (08:21)
[2022-08-06] MEDS: PANTOPRAZOLE SODIUM IV 40 MG VIAL IV PUSH (08:21)
[2022-08-06] MEDS: PARoxetine 20 MG TABLET 40 MG PO (08:21)
[2022-08-06] MEDS: lisinopriL 10 MG TABLET PO (08:21)
[2022-08-06] MEDS: METOPROLOL TARTRATE 12.5 MG TABLET PO ×2 (08:21→20:39)
--- NOTE | 2022-08-06 11:05 | WPDGIPROGNO ---
Progress Note: A&P Assessment and Plan (1) Polyp of ascending colon: Code(s): K63.5 - Polyp of colon Status: Acute Assessment and Plan: Sessile polyp in the ascending colon suspicious in appearance for malignancy. This is only about 12mm size but could be a risk of perforation. Biopsies were taken and tattoo placed. Plan to review histology. She may benefit from laparoscopic resection. Endoscopic resection could be attempted but she would be at risk of perforation. Surgical opinion on laparoscopic resection pending. Await histology. CEA 5.4 only mildly elevated. (2) LIBERTAD (iron deficiency anemia): Code(s): D50.9 - Iron deficiency anemia, unspecified Status: Acute Subjective Date/time seen: 08/06/22 11:05 Patient alet comortable This morning. Tolerated diet. No bleeding evident. Review of Systems Review of Systems: Review of systems noncontributory. Exam Narrative: Physical exam reveals patient alert comfortable at rest. She is anicteric. Abdomen is soft and nontender. Objective Data Vital Signs Vital Signs: Vital Signs - 24 hr 08/05/22 12:26 08/05/22 14:09 08/05/22 14:19 Temperature 97 F L Pulse Rate 68 62 66 Respiratory Rate 18 19 20 Blood Pressure 159/78 H 114/64 155/93 H Pulse Oximetry 96 93 94 Oxygen Delivery Room Air Room Air Room Air 08/05/22 14:29 08/05/22 14:56 08/05/22 14:39 Temperature Pulse Rate 67 60 60 Respiratory Rate 20 Blood Pressure 152/85 H 174/66 H 172/63 H Pulse Oximetry 97 Oxygen Delivery Room Air 08/05/22 21:53 08/06/22 06:00 08/06/22 08:21 Temperature 97.8 F Pulse Rate 74 63 63 Respiratory Rate 18 16 Blood Pressure 139/44 L 156/71 H Pulse Oximetry 97 94 Oxygen Delivery Intake/Output Intake/Output: Intake & Output 08/03/22 08/04/22 08/05/22 08/06/22 23:59 23:59 23:59 23:59 Intake Total 8947 964 3782 440 Output Total 400 Balance 8091 241 6360 440 Meds/Results Medications: Active Medications Generic Name Dose Route Start Last Admin Trade Name Freq PRN Reason Stop Dose Admin Amlodipine Besylate 5 mg 08/03/22 09:00 08/06/22 08:21 Amlodipine Besylate 5 Mg Tablet PO 5 mg DAILY BERKLEY Administration Atorvastatin Calcium 40 mg 08/03/22 21:00 08/05/22 21:06 Atorvastatin 40 Mg Tablet PO 40 mg QHS BERKLEY Administration Bupropion HCl 150 mg 08/03/22 09:15 08/06/22 08:21 Bupropion Hcl Sr (12 Hr) 150 Mg Tab PO 150 mg Q12HR BERKLEY Administration Gabapentin 300 mg 08/03/22 14:00 08/06/22 05:35 Gabapentin 300 Mg Capsule PO 300 mg Q8HR BERKLEY Administration Hydralazine HCl 10 mg 08/03/22 15:44 Hydralazine Hcl 20 Mg/Ml Vial IV PUSH Q8H PRN Blood Pressure - High Sodium Chloride 250 mls @ 30 mls/hr 08/06/22 09:06 Normal Saline Iv IV CONT 08/06/22 17:25 .Q8H20M STA Lisinopril 10 mg 08/03/22 09:00 08/06/22 08:21 Lisinopril 10 Mg Tablet PO 10 mg DAILY BERKLEY Administration Metoprolol Tartrate 12.5 mg 08/03/22 09:15 08/06/22 08:21 Metoprolol Tartrate 12.5 Mg Tablet PO 12.5 mg Q12HR BERKLEY Administration Pantoprazole Sodium 40 mg 08/07/22 09:00 Pantoprazole 40 Mg Tablet PO QAM BERKLEY Paroxetine HCl 40 mg 08/03/22 09:00 08/06/22 08:21 Paroxetine 20 Mg Tablet PO 40 mg DAILY BERKLEY Administration Ropinirole HCl 2 mg 08/03/22 21:00 08/05/22 21:06 Ropinirole Hcl 1 Mg Tablet PO 2 mg HS BERKLEY Administration Tramadol HCl 50 mg 08/03/22 09:01 08/05/22 22:17 Tramadol Hcl (*Crx) 50 Mg Tablet PO 50 mg Q8H PRN Administration Pain Rated 4-6 Radiology Results: ITS Impressions Chest X-Ray 08/02/22 21:37 IMPRESSION: No acute cardiopulmonary process. Labs Labs: Laboratory Results - last 24 hr 08/05/22 08/06/22 08/06/22 05:16 05:39 05:39 WBC 7.6 RBC 2.77 L Hgb 7.0 L Hct 24.4 L MCV 88.1 MCH 25.3 L MCHC 28.7 L RDW 17.7 H Plt Count 194
[2022-08-06] MEDS: POTASSIUM CHLORIDE 20 MEQ TABLET 40 MEQ PO (12:58)
[2022-08-06] MEDS: SODIUM CHLORIDE 0.9% IV 250 ML 30 ML IV CONT (12:59)
--- NOTE | 2022-08-06 15:40 | PM.CNGS ---
Assessment and Plan Assessment and plan (1) Polyp of ascending colon: Code(s): K63.5 - Polyp of colon Status: Chronic Assessment and Plan: this is likely the source of the bleeding her colonoscopy report. I have discussed this with the patient. There is a possibility it could be a colon cancer. I have recommended going ahead with hand access laparoscopic right colectomy with anastomosis. I discussed this procedure with the patient. I described the overall length of recovery and time usually spent in the hospital in recovery. She would like to proceed as soon as possible. While she is still anemic, she appears to be euvolemic. She has been off her Plavix for 3 days now and Monday would be a satisfactory period of time to minimize the anti thrombotic effects of Plavix Relative to surgery. I will go ahead and schedule her for laparoscopic right colectomy for Monday afternoon. She will start bowel prep tomorrow. All questions were answered. She agrees to go ahead. (2) Acute on chronic anemia: Code(s): D64.9 - Anemia, unspecified Status: Acute Assessment and Plan: Has had 3 units of packed cells transfused. Appears to be euvolemic although still anemic. Continue to monitor H&H prior to surgery. (3) Tobacco use: Code(s): Z72.0 - Tobacco use Status: Chronic Assessment and Plan: Increases surgical risk. (4) Coronary artery disease: Qualifiers: Associated angina: without angina Coronary Disease-Associated Artery/Lesion type: bypass graft [place] vs. transplanted heart: [place] heart Qualified Code(s): I25.810 - Atherosclerosis of coronary artery bypass graft(s) without angina pectoris Code(s): I25.10 - Atherosclerotic heart disease of [place] coronary artery without angina pectoris Status: Chronic Assessment and Plan: Patient has had previous coronary bypass grafting and has had a previous stroke. She has no residual defect from the stroke. Will repeat EKG preop. Chest x-ray on 08/02 was negative. (5) Antiplatelet or antithrombotic long-term use: Code(s): Z79.02 - FPC (current) use of antithrombotics/antiplatelets Status: Chronic Assessment and Plan: Continue to hold Plavix. Restart following surgery. History of Present Illness Consult details Consult date: 08/06/22 Reason for consult: other (Bleeding ascending colon polyp) Requesting physician: Eulalio Sharma MD Narrative: patient is a 77-year-old woman who was complaining of dyspnea and weakness. She had a CBC as an outpatient by her primary care physician and was found to have a hemoglobin of 4.5. She came to the emergency room and was seen in the evening of 08/02/2022. Patient does take Plavix and has not taken any since her admission on 08/02. She was admitted and has had 2 units transfused initially and a third unit transfused today. patient underwent colonoscopy yesterday, 08/05/2022, per Dr. Sharma. A polyp in the proximal ascending colon appeared to be the site of bleeding. It had stigmata of bleeding. It was biopsied and tattooed. Pictures taken from colonoscopy suggest it had some ulceration. It was suspicious for cancer. CEA level was done and was slightly elevated at 5.4. Patient is seen today in consultation. She denies ever having had abdominal pain associated with this. She has not noticed any bloody stools or dark stools. She has had anemia in the past but the source was never really found. I discussed that surgery to remove this polyp would likely be needed. She would like to have that done as soon as possible. Her only previous surgery was a tubal ligation and a urinary bladder suspension. Review of Systems Review of Systems: All systems reviewed & are unremarkable except as noted in HPI and below ( HPI and those items noted below) Constitutional: Constitutional: Reports as per HPI, Denies chills, Reports fatigue, Denies fever(s), R
--- NOTE | 2022-08-06 15:53 | P.PNIM_ITS ---
Progress Note: A&P Assessment and Plan (1) Acute on chronic anemia: Code(s): D64.9 - Anemia, unspecified Status: Acute Assessment and Plan: Patient presented to the ED with hgb 4.9. She reports taking generic Aleve once daily for arthritis pain intermittently. * FOBT negative in ED, but positive on sample from the floor. * given 2 units PRBC on admission. * Continue protonix 40 mg IV Q12 hours * Trend H&H and transfuse if hemoglobin is less than 7 or less than 8 and symptomatic * Serum iron, saturation, and ferritin low, TIBC high. Give Venofer 500 mg IV Q24 hours x 3 doses. Completed 3 days IV iron on 08/05/22. * B12 and folate within normal limits.? Continue home B12 and folic acid * Consult GI for evaluation and appreciate recommendations. * Hold aspirin and Plavix * EGD normal with random biopsies taken of duodenum to exclude celiac sprue * colonoscopy with single medium sessile polyp to proximal ascending colon with stigmata of bleeding from polyps but no active blood. Biopsies take and polyp tagged. * Awaiting surgical evaluation * 08/06/22 Hgb 7.0. Was 7.3 yesterday, she is slowly downtrending. Will give 1 unit PRBC now (total 3 this hospitalization). Repeat H/H in am. (2) HTN (hypertension): Qualifiers: Hypertension type: primary hypertension Qualified Code(s): I10 - Essential (primary) hypertension Code(s): I10 - Essential (primary) hypertension Status: Chronic Assessment and Plan: chronic, stable * Continue lisinopril, metoprolol and amlodipine at home doses as BP allows, with hold parameters (3) Restless legs syndrome: Code(s): G25.81 - Restless legs syndrome Status: Chronic Assessment and Plan: Chronic, continue home meds (4) Coronary artery disease: Qualifiers: Associated angina: without angina Coronary Disease-Associated Artery/Lesion type: bypass graft [place] vs. transplanted heart: [place] heart Qualified Code(s): I25.810 - Atherosclerosis of coronary artery bypass graft(s) without angina pectoris Code(s): I25.10 - Atherosclerotic heart disease of [place] coronary artery without angina pectoris Status: Chronic Assessment and Plan: Chronic, stable, history of CABG * Holding aspirin and Plavix for acute anemia since admission 08/02/22. Will continue to hold for now in case plan for surgery this hospital stay. * Continue statin, amlodipine, lisinopril, and metoprolol at home doses as BP tolerates * Monitor vitals.? No active chest pain (5) Osteoarthritis: Qualifiers: Osteoarthritis location: unspecified site Osteoarthritis type: unspecified Qualified Code(s): M19.90 - Unspecified osteoarthritis, unspecified site Code(s): M19.90 - Unspecified osteoarthritis, unspecified site Status: Chronic Assessment and Plan: Chronic, stable, she has chronic lower back pain and chronic hip pain * Continue gabapentin at home dose and PRN tramadol * Avoid NSAIDs such as Aleve (6) Tobacco use: Code(s): Z72.0 - Tobacco use Status: Chronic Assessment and Plan: Current everyday smoker with 55 pack-year smoking history.? * nicotine patch as needed * smoking cessation education given (7) Polyp of ascending colon: Code(s): K63.5 - Polyp of colon Status: Chronic Assessment and Plan: colonoscopy with single medium sessile polyp to proximal ascending colon with stigmata of bleeding from polyps but no active blood. Biopsies take and polyp tagged. * Awaiting surgical evaluation
--- NOTE | 2022-08-06 15:53 | PM.IMPN ---
Progress Note: A&P Assessment and Plan (1) Acute on chronic anemia: Code(s): D64.9 - Anemia, unspecified Status: Acute Assessment and Plan: Patient presented to the ED with hgb 4.9. She reports taking generic Aleve once daily for arthritis pain intermittently. FOBT negative in ED, but positive on sample from the floor. given 2 units PRBC on admission. Continue protonix 40 mg IV Q12 hours Trend H&H and transfuse if hemoglobin is less than 7 or less than 8 and symptomatic Serum iron, saturation, and ferritin low, TIBC high. Give Venofer 500 mg IV Q24 hours x 3 doses. Completed 3 days IV iron on 08/05/22. B12 and folate within normal limits.? Continue home B12 and folic acid Consult GI for evaluation and appreciate recommendations. Hold aspirin and Plavix EGD normal with random biopsies taken of duodenum to exclude celiac sprue colonoscopy with single medium sessile polyp to proximal ascending colon with stigmata of bleeding from polyps but no active blood. Biopsies take and polyp tagged. Awaiting surgical evaluation 08/06/22 Hgb 7.0. Was 7.3 yesterday, she is slowly downtrending. Will give 1 unit PRBC now (total 3 this hospitalization). Repeat H/H in am. (2) HTN (hypertension): Qualifiers: Hypertension type: primary hypertension Qualified Code(s): I10 - Essential (primary) hypertension Code(s): I10 - Essential (primary) hypertension Status: Chronic Assessment and Plan: chronic, stable Continue lisinopril, metoprolol and amlodipine at home doses as BP allows, with hold parameters (3) Restless legs syndrome: Code(s): G25.81 - Restless legs syndrome Status: Chronic Assessment and Plan: Chronic, continue home meds (4) Coronary artery disease: Qualifiers: Associated angina: without angina Coronary Disease-Associated Artery/Lesion type: bypass graft [place] vs. transplanted heart: [place] heart Qualified Code(s): I25.810 - Atherosclerosis of coronary artery bypass graft(s) without angina pectoris Code(s): I25.10 - Atherosclerotic heart disease of [place] coronary artery without angina pectoris Status: Chronic Assessment and Plan: Chronic, stable, history of CABG Holding aspirin and Plavix for acute anemia since admission 08/02/22. Will continue to hold for now in case plan for surgery this hospital stay. Continue statin, amlodipine, lisinopril, and metoprolol at home doses as BP tolerates Monitor vitals.? No active chest pain (5) Osteoarthritis: Qualifiers: Osteoarthritis location: unspecified site Osteoarthritis type: unspecified Qualified Code(s): M19.90 - Unspecified osteoarthritis, unspecified site Code(s): M19.90 - Unspecified osteoarthritis, unspecified site Status: Chronic Assessment and Plan: Chronic, stable, she has chronic lower back pain and chronic hip pain Continue gabapentin at home dose and PRN tramadol Avoid NSAIDs such as Aleve (6) Tobacco use: Code(s): Z72.0 - Tobacco use Status: Chronic Assessment and Plan: Current everyday smoker with 55 pack-year smoking history.? nicotine patch as needed smoking cessation education given (7) Polyp of ascending colon: Code(s): K63.5 - Polyp of colon Status: Chronic Assessment and Plan: colonoscopy with single medium sessile polyp to proximal ascending colon with stigmata of bleeding from polyps but no active blood. Biopsies take and polyp tagged. Awaiting surgical evaluation Plan Code status:? Full code Disposition:? Discharge pending endoscopy results Time Spent With Patient Time with patient: 15 - 25 minutes Subjective Date/time seen: 08/06/22 15:53 No new complaints or overnight events. She was woken up early this morning and is tired now. No BM since prior to colonoscopy yesterday. She is awaiting surgical evaluation. Review of Systems Review of Systems: Junior
[2022-08-06] MEDS: rOPINIRole HCL 1 MG TABLET 2 MG PO (20:40)
[2022-08-06] MEDS: ENOXAPARIN 30 MG/0.3 ML SYRINGE SUB-Q (20:40)
[2022-08-06] MEDS: ATORVASTATIN 40 MG TABLET PO (20:41)
[2022-08-06 22:47] LABS: Haptoglobin 226 mg/dL (43-212)
[2022-08-07] MEDS: GABAPENTIN 300 MG CAPSULE PO ×3 (05:15→21:42)
[2022-08-07 06:31] VITALS: BP 158/62; PULSE 61; RESP 18; TEMP 36.3; O2SAT 95
[2022-08-07 06:40] LABS: Hematocrit 26.5 % (37.0-47.0); Hemoglobin 7.8 g/dL (12.0-15.0)
[2022-08-07 08:22] VITALS: PULSE 61
[2022-08-07] MEDS: buPROPion HCL SR (12 HR) 150 MG TAB PO ×2 (08:22→21:40)
[2022-08-07] MEDS: amLODIPine BESYLATE 5 MG TABLET PO (08:22)
[2022-08-07] MEDS: METOPROLOL TARTRATE 12.5 MG TABLET PO ×2 (08:22→21:39)
[2022-08-07] MEDS: lisinopriL 10 MG TABLET PO (08:23)
[2022-08-07] MEDS: ENOXAPARIN 30 MG/0.3 ML SYRINGE SUB-Q ×2 (08:23→21:41)
[2022-08-07] MEDS: PARoxetine 20 MG TABLET 40 MG PO (08:23)
[2022-08-07] MEDS: PANTOPRAZOLE 40 MG TABLET PO (08:23)
[2022-08-07] MEDS: metroNIDAZOLE 250 MG TABLET 500 MG PO ×2 (12:31→17:56)
[2022-08-07] MEDS: POTASSIUM CHLORIDE 20 MEQ TABLET 40 MEQ PO (12:31)
--- NOTE | 2022-08-07 13:34 | P.PNIM_ITS ---
Progress Note: A&P Assessment and Plan (1) Acute on chronic anemia: Code(s): D64.9 - Anemia, unspecified Status: Acute Assessment and Plan: Patient presented to the ED with hgb 4.9. She reports taking generic Aleve once daily for arthritis pain intermittently. * FOBT negative in ED, but positive on sample from the floor. * given 2 units PRBC on admission. * Continue protonix 40 mg IV Q12 hours * Trend H&H and transfuse if hemoglobin is less than 7 or less than 8 and symptomatic * Serum iron, saturation, and ferritin low, TIBC high. Give Venofer 500 mg IV Q24 hours x 3 doses. Completed 3 days IV iron on 08/05/22. * B12 and folate within normal limits.? Continue home B12 and folic acid * Consult GI for evaluation and appreciate recommendations. * Hold aspirin and Plavix * EGD normal with random biopsies taken of duodenum to exclude celiac sprue * colonoscopy with single medium sessile polyp to proximal ascending colon with stigmata of bleeding from polyps but no active blood. Biopsies take and polyp tagged. * Awaiting surgical evaluation * 08/06/22 Hgb 7.0. Was 7.3 yesterday, she is slowly downtrending. Will give 1 unit PRBC now (total 3 this hospitalization). Repeat H/H in am. * 08/07/22 Hgb 7.8 after blood transfusion. Repeat labs in am for surgery Monday. Start oral iron supplement and vitamin C supplement. (2) HTN (hypertension): Qualifiers: Hypertension type: primary hypertension Qualified Code(s): I10 - Essential (primary) hypertension Code(s): I10 - Essential (primary) hypertension Status: Chronic Assessment and Plan: chronic, stable * Continue lisinopril, metoprolol and amlodipine at home doses as BP allows, with hold parameters (3) Restless legs syndrome: Code(s): G25.81 - Restless legs syndrome Status: Chronic Assessment and Plan: Chronic, continue home meds (4) Coronary artery disease: Qualifiers: Associated angina: without angina Coronary Disease-Associated Artery/Lesion type: bypass graft [place] vs. transplanted heart: [place] heart Qualified Code(s): I25.810 - Atherosclerosis of coronary artery bypass graft(s) without angina pectoris Code(s): I25.10 - Atherosclerotic heart disease of [place] coronary artery without angina pectoris Status: Chronic Assessment and Plan: Chronic, stable, history of CABG * Holding aspirin and Plavix for acute anemia since admission 08/02/22. Will continue to hold for now in case plan for surgery this hospital stay. * Continue statin, amlodipine, lisinopril, and metoprolol at home doses as BP tolerates * Monitor vitals.? No active chest pain (5) Osteoarthritis: Qualifiers: Osteoarthritis location: unspecified site Osteoarthritis type: unspecified Qualified Code(s): M19.90 - Unspecified osteoarthritis, unspecified site Code(s): M19.90 - Unspecified osteoarthritis, unspecified site Status: Chronic Assessment and Plan: Chronic, stable, she has chronic lower back pain and chronic hip pain * Continue gabapentin at home dose and PRN tramadol * Avoid NSAIDs such as Aleve (6) Tobacco use: Code(s): Z72.0 - Tobacco use Status: Chronic Assessment and Plan: Current everyday smoker with 55 pack-year smoking history.? * nicotine patch as needed * smoking cessation education given (7) Polyp of ascending colon: Code(s): K63.5 - Polyp of colon Status: Chronic Assessment and Plan: colonoscopy with single medium sessile polyp to proximal ascending colon with
--- NOTE | 2022-08-07 13:34 | PM.IMPN ---
Progress Note: A&P Assessment and Plan (1) Acute on chronic anemia: Code(s): D64.9 - Anemia, unspecified Status: Acute Assessment and Plan: Patient presented to the ED with hgb 4.9. She reports taking generic Aleve once daily for arthritis pain intermittently. FOBT negative in ED, but positive on sample from the floor. given 2 units PRBC on admission. Continue protonix 40 mg IV Q12 hours Trend H&H and transfuse if hemoglobin is less than 7 or less than 8 and symptomatic Serum iron, saturation, and ferritin low, TIBC high. Give Venofer 500 mg IV Q24 hours x 3 doses. Completed 3 days IV iron on 08/05/22. B12 and folate within normal limits.? Continue home B12 and folic acid Consult GI for evaluation and appreciate recommendations. Hold aspirin and Plavix EGD normal with random biopsies taken of duodenum to exclude celiac sprue colonoscopy with single medium sessile polyp to proximal ascending colon with stigmata of bleeding from polyps but no active blood. Biopsies take and polyp tagged. Awaiting surgical evaluation 08/06/22 Hgb 7.0. Was 7.3 yesterday, she is slowly downtrending. Will give 1 unit PRBC now (total 3 this hospitalization). Repeat H/H in am. 08/07/22 Hgb 7.8 after blood transfusion. Repeat labs in am for surgery Monday. Start oral iron supplement and vitamin C supplement. (2) HTN (hypertension): Qualifiers: Hypertension type: primary hypertension Qualified Code(s): I10 - Essential (primary) hypertension Code(s): I10 - Essential (primary) hypertension Status: Chronic Assessment and Plan: chronic, stable Continue lisinopril, metoprolol and amlodipine at home doses as BP allows, with hold parameters (3) Restless legs syndrome: Code(s): G25.81 - Restless legs syndrome Status: Chronic Assessment and Plan: Chronic, continue home meds (4) Coronary artery disease: Qualifiers: Associated angina: without angina Coronary Disease-Associated Artery/Lesion type: bypass graft [place] vs. transplanted heart: [place] heart Qualified Code(s): I25.810 - Atherosclerosis of coronary artery bypass graft(s) without angina pectoris Code(s): I25.10 - Atherosclerotic heart disease of [place] coronary artery without angina pectoris Status: Chronic Assessment and Plan: Chronic, stable, history of CABG Holding aspirin and Plavix for acute anemia since admission 08/02/22. Will continue to hold for now in case plan for surgery this hospital stay. Continue statin, amlodipine, lisinopril, and metoprolol at home doses as BP tolerates Monitor vitals.? No active chest pain (5) Osteoarthritis: Qualifiers: Osteoarthritis location: unspecified site Osteoarthritis type: unspecified Qualified Code(s): M19.90 - Unspecified osteoarthritis, unspecified site Code(s): M19.90 - Unspecified osteoarthritis, unspecified site Status: Chronic Assessment and Plan: Chronic, stable, she has chronic lower back pain and chronic hip pain Continue gabapentin at home dose and PRN tramadol Avoid NSAIDs such as Aleve (6) Tobacco use: Code(s): Z72.0 - Tobacco use Status: Chronic Assessment and Plan: Current everyday smoker with 55 pack-year smoking history.? nicotine patch as needed smoking cessation education given (7) Polyp of ascending colon: Code(s): K63.5 - Polyp of colon Status: Chronic Assessment and Plan: colonoscopy with single medium sessile polyp to proximal ascending colon with stigmata of bleeding from polyps but no active blood. Biopsies take and polyp tagged. laparoscopic right colectomy planned for Monday. Plan Code status:? Full code Disposition:? Discharge pending endoscopy results Time Spent With Patient Time with patient: 15 - 25 minutes Subjective Date/time seen: 08/07/22 13:34 Interval history: She denies new complaints or overnight events
[2022-08-07 14:00] VITALS: BP 142/51; PULSE 55; RESP 16; TEMP 36.6; O2SAT 93
[2022-08-07] MEDS: ERYTHROMYCIN 250 MG TABLET 1000 MG PO ×2 (14:21→15:51)
--- NOTE | 2022-08-07 14:55 | PM.PNGS ---
Progress Note: A&P Assessment and Plan (1) Polyp of ascending colon: Code(s): K63.5 - Polyp of colon Status: Chronic Assessment and Plan: surgery planned for tomorrow around 3:00 p.m.. I discussed the surgery again briefly with the patient. She had a few additional questions which I answered. She is undergoing her bowel prep. Plan to proceed with and access laparoscopic right colectomy tomorrow afternoon. (2) LIBERTAD (iron deficiency anemia): Code(s): D50.9 - Iron deficiency anemia, unspecified Status: Acute Assessment and Plan: H&H stable. Will continue to monitor. (3) Antiplatelet or antithrombotic long-term use: Code(s): Z79.02 - long term care administrator (current) use of antithrombotics/antiplatelets Status: Chronic Assessment and Plan: Plavix will have been held 5 days by the time of surgery tomorrow. (4) Tobacco use: Code(s): Z72.0 - Tobacco use Status: Chronic Assessment and Plan: Increases surgical risk. (5) Coronary artery disease: Qualifiers: Associated angina: without angina Coronary Disease-Associated Artery/Lesion type: bypass graft [place] vs. transplanted heart: [place] heart Qualified Code(s): I25.810 - Atherosclerosis of coronary artery bypass graft(s) without angina pectoris Code(s): I25.10 - Atherosclerotic heart disease of [place] coronary artery without angina pectoris Status: Chronic Assessment and Plan: No current symptoms Subjective Subjective Date/Time Seen: 08/07/22 14:55 Patient reports: no new complaints, tolerating liquids well, bowel movement and afebrile Review of Systems Review of Systems: All systems reviewed & are unremarkable except as noted in HPI and below (HPI and those items noted below) Constitutional: Constitutional: Denies chills and Denies fever(s) Cardiovascular: Cardiovascular: Denies chest pain, Denies diaphoresis, Denies dyspnea and Denies paroxysmal nocturnal dyspnea Respiratory: Respiratory: Denies chest congestion, Denies cough and Denies dyspnea Integumentary/Breasts: Skin/Breast: Denies lesions and Denies rash Exam Const: General: comfortable and no acute distress; No confusion Orientation/consciousness: patient oriented x3 and No confusion GI: Inspection: normal to inspection and obesity GI Palp: Yes Soft to palpation, No Tenderness to palpation present (GI), No Guarding due to palpation present (GI) and No Rebound tenderness present Auscultation: normal bowel sounds Neuro: General: patient oriented x3, no focal motor deficits and No confusion Extrem: General: no calf tenderness and no edema Psych: Affect: normal affect Insight: Good insight present (Psych) Judgement: Good judgement present (Psych) Objective Data Vital Signs Vital Signs: Vital Signs - 24 hr 08/06/22 15:05 08/06/22 16:09 08/06/22 20:39 Temperature 36.3 C L 36.2 C L Pulse Rate 64 74 64 Respiratory Rate 18 18 Blood Pressure 149/88 H 153/93 H Pulse Oximetry 97 96 Oxygen Delivery 08/06/22 22:04 08/06/22 21:00 08/07/22 06:31 Temperature 36.1 C L 36.3 C L Pulse Rate 64 61 Respiratory Rate 16 18 Blood Pressure 151/46 H 158/62 H Pulse Oximetry 94 95 Oxygen Delivery Room Air 08/07/22 08:22 08/07/22 07:40 08/07/22 14:00 Temperature 36.6 C Pulse Rate 61 55 L Respiratory Rate 16 Blood Pressure 142/51 H Pulse Oximetry 93 Oxygen Delivery Room Air Intake/Output Intake/Output: Intake & Output 08/04/22 08/05/22 08/06/22 08/07/22 23:59 23:59 23:59 23:59 Intake Total 875 3120 1650 990 Output Total 400 Balance 475 3120 1650 990 Meds/Results Medications: Active Medications Generic Name Dose Route Start Last Admin Trade Name Freq PRN Reason Stop Dose Admin Amlodipine Besylate 5 mg 08/03/22 09:00 08/07/22 08:22 Amlodipine Besylate 5 Mg Tablet PO 5 mg DAILY BERKLEY Administration Atorvastatin Calcium 40 mg 08/03/22 21:00
[2022-08-07] MEDS: POTASSIUM CHLORIDE 20 MEQ TABLET.ER 40 MEQ PO (17:55)
[2022-08-07 21:39] VITALS: PULSE 51
[2022-08-07] MEDS: rOPINIRole HCL 1 MG TABLET 2 MG PO (21:40)
[2022-08-07] MEDS: ATORVASTATIN 40 MG TABLET PO (21:40)
[2022-08-07 22:02] VITALS: BP 142/46; PULSE 51; RESP 18; TEMP 36.3; O2SAT 95
[2022-08-08] VITALS (21 sets, daily range): BP systolic 125–170; BP diastolic 42–71; PULSE 52–62; RESP 12–18; TEMP 36.1–36.7; O2SAT 90–100
[2022-08-08] MEDS: ERYTHROMYCIN 250 MG TABLET 1000 MG PO (00:06)
[2022-08-08] MEDS: metroNIDAZOLE 250 MG TABLET 500 MG PO (00:06)
[2022-08-08] MEDS: GABAPENTIN 300 MG CAPSULE PO (05:45)
[2022-08-08 06:42] LABS: Basophils Absolute Auto 0.1 K/mm3 (0.0-0.1); Basophils Percent Auto 0.7 % (0.2-1.2); Eosinophils Absolute Auto 0.1 K/mm3 (0-0.3); Eosinophils Percent Auto 1.7 % (0-4.4); Hematocrit 23.6 % (37.0-47.0); Immature Granulocyte Absolute 0.05 K/mm3 (0.00-0.031); Immature Granulocyte Percent A 0.7 % (0-0.5); Lymphocytes Absolute Auto 0.76 K/mm3 (0.9-3.2); Lymphocytes Percent Auto 10.9 % (18.3-44.2); Mean Corpuscular HGB Conc 28.8 g/dl (32-36); Mean Corpuscular Hemoglobin 26.5 pg (26-34); Mean Corpuscular Volume 91.8 fl (80-100); Mean Platelet Volume 12.1 fl (7.4-10.4); Monocytes Absolute Auto 0.7 K/mm3 (0.1-0.6); Monocytes Percent Auto 10.2 % (2.6-8.5); Neutrophils Absolute Auto 5.3 K/mm3 (1.3-6.7); Neutrophils Percent Auto 75.8 % (45.5-73.1); Nucleated Red Blood Cells Perc 0.3 % (0.0-0.2); Platelet Count Result 177 k/mm3 (150-375); Red Blood Count 2.57 M/mm3 (4.2-5.4); Red Cell Distribution Width 19.8 % (11.5-14.5)
[2022-08-08 06:50] LABS: INR 1.4; Partial Thromboplastin Time 36.3 SECONDS (22.3-36.8)
[2022-08-08 07:05] LABS: Alanine Aminotransferase 16 U/L (6-35); Albumin Level 3.3 g/dL (3.5-5.1); Alkaline Phosphatase 64 U/L (38-126); Anion Gap 4 mmol/L (8-16); Aspartate Amino Transferase 18 U/L (14-36); Bilirubin,Total 0.6 mg/dL (0.2-1.3); Blood Urea Nitrogen 13 mg/dL (7-17); Calcium 8.8 mg/dL (8.4-10.2); Carbon Dioxide 27 mmol/L (22-30); Chloride 103 mmol/L (98-107); Estimated CRCL calculation 64 ml/min; Estimated Glomerular Filt Rate > 60; Glucose 81 mg/dL (65-110); Potassium 4.1 mmol/L (3.4-5.0); Sodium 134 mmol/L (137-145)
[2022-08-08 09:21] LABS: Hemoglobin 6.8 g/dL (12.0-15.0)
[2022-08-08 09:22] LABS: Platelet Estimate Adequate (Adequate)
[2022-08-08 09:23] LABS: Anisocytosis 2+ (NORMAL); Hypochromasia 3+ (NORMAL); Polychromasia 1+ (NORMAL)
[2022-08-08 09:24] LABS: Macrocytosis 1+ (NORMAL); Microcytosis 1+ (NORMAL)
[2022-08-08 09:25] LABS: Schistocytes None Seen (NORMAL)
[2022-08-08] MEDS: buPROPion HCL SR (12 HR) 150 MG TAB PO (09:38)
[2022-08-08] MEDS: lisinopriL 10 MG TABLET PO (09:39)
[2022-08-08] MEDS: METOPROLOL TARTRATE 12.5 MG TABLET PO (09:39)
[2022-08-08] MEDS: PANTOPRAZOLE 40 MG TABLET PO (09:39)
[2022-08-08] MEDS: amLODIPine BESYLATE 5 MG TABLET PO (09:39)
--- NOTE | 2022-08-08 11:39 | P.PNIM_ITS ---
Progress Note: A&P Assessment and Plan (1) Acute on chronic anemia: Code(s): D64.9 - Anemia, unspecified Status: Acute Assessment and Plan: Patient presented to the ED with hgb 4.9. She reports taking generic Aleve once daily for arthritis pain intermittently. * FOBT negative in ED, but positive on sample from the floor. * given 2 units PRBC on admission. * Continue protonix 40 mg IV Q12 hours * Trend H&H and transfuse if hemoglobin is less than 7 or less than 8 and symptomatic * Serum iron, saturation, and ferritin low, TIBC high. Give Venofer 500 mg IV Q24 hours x 3 doses. Completed 3 days IV iron on 08/05/22. * B12 and folate within normal limits.? Continue home B12 and folic acid * Consult GI for evaluation and appreciate recommendations. * Hold aspirin and Plavix * EGD normal with random biopsies taken of duodenum to exclude celiac sprue * colonoscopy with single medium sessile polyp to proximal ascending colon with stigmata of bleeding from polyps but no active blood. Biopsies take and polyp tagged. * Awaiting surgical evaluation * 08/06/22 Hgb 7.0. Was 7.3 yesterday, she is slowly downtrending. Will give 1 unit PRBC now (total 3 this hospitalization). Repeat H/H in am. * 08/07/22 Hgb 7.8 after blood transfusion. Repeat labs in am for surgery Monday. Start oral iron supplement and vitamin C supplement. * 08/08/22 hemoglobin 6.8 this morning. Will give 2 units PRBC as surgery is planned this afternoon and 20 mg IV Lasix between units. Repeat hemoglobin following surgery (2) HTN (hypertension): Qualifiers: Hypertension type: primary hypertension Qualified Code(s): I10 - Essential (primary) hypertension Code(s): I10 - Essential (primary) hypertension Status: Chronic Assessment and Plan: chronic, stable * Continue lisinopril, metoprolol and amlodipine at home doses as BP allows, with hold parameters (3) Restless legs syndrome: Code(s): G25.81 - Restless legs syndrome Status: Chronic Assessment and Plan: Chronic, continue home meds (4) Coronary artery disease: Qualifiers: Associated angina: without angina Coronary Disease-Associated Artery/Lesion type: bypass graft [place] vs. transplanted heart: [place] heart Qualified Code(s): I25.810 - Atherosclerosis of coronary artery bypass graft(s) without angina pectoris Code(s): I25.10 - Atherosclerotic heart disease of [place] coronary artery without angina pectoris Status: Chronic Assessment and Plan: Chronic, stable, history of CABG * Holding aspirin and Plavix for acute anemia since admission 08/02/22. Will continue to hold for now in case plan for surgery this hospital stay. * Continue statin, amlodipine, lisinopril, and metoprolol at home doses as BP tolerates * Monitor vitals.? No active chest pain (5) Osteoarthritis: Qualifiers: Osteoarthritis location: unspecified site Osteoarthritis type: unspecified Qualified Code(s): M19.90 - Unspecified osteoarthritis, unspecified site Code(s): M19.90 - Unspecified osteoarthritis, unspecified site Status: Chronic Assessment and Plan: Chronic, stable, she has chronic lower back pain and chronic hip pain * Continue gabapentin at home dose and PRN tramadol * Avoid NSAIDs such as Aleve (6) Tobacco use: Code(s): Z72.0 - Tobacco use Status: Chronic Assessment and Plan: Current everyday smoker with 55 pack-year smoking history.? * nicotine patch as needed * smoking cessation education given (7) Polyp of ascending colon:
--- NOTE | 2022-08-08 11:39 | PM.IMPN ---
Progress Note: A&P Assessment and Plan (1) Acute on chronic anemia: Code(s): D64.9 - Anemia, unspecified Status: Acute Assessment and Plan: Patient presented to the ED with hgb 4.9. She reports taking generic Aleve once daily for arthritis pain intermittently. FOBT negative in ED, but positive on sample from the floor. given 2 units PRBC on admission. Continue protonix 40 mg IV Q12 hours Trend H&H and transfuse if hemoglobin is less than 7 or less than 8 and symptomatic Serum iron, saturation, and ferritin low, TIBC high. Give Venofer 500 mg IV Q24 hours x 3 doses. Completed 3 days IV iron on 08/05/22. B12 and folate within normal limits.? Continue home B12 and folic acid Consult GI for evaluation and appreciate recommendations. Hold aspirin and Plavix EGD normal with random biopsies taken of duodenum to exclude celiac sprue colonoscopy with single medium sessile polyp to proximal ascending colon with stigmata of bleeding from polyps but no active blood. Biopsies take and polyp tagged. Awaiting surgical evaluation 08/06/22 Hgb 7.0. Was 7.3 yesterday, she is slowly downtrending. Will give 1 unit PRBC now (total 3 this hospitalization). Repeat H/H in am. 08/07/22 Hgb 7.8 after blood transfusion. Repeat labs in am for surgery Monday. Start oral iron supplement and vitamin C supplement. 08/08/22 hemoglobin 6.8 this morning. Will give 2 units PRBC as surgery is planned this afternoon and 20 mg IV Lasix between units. Repeat hemoglobin following surgery (2) HTN (hypertension): Qualifiers: Hypertension type: primary hypertension Qualified Code(s): I10 - Essential (primary) hypertension Code(s): I10 - Essential (primary) hypertension Status: Chronic Assessment and Plan: chronic, stable Continue lisinopril, metoprolol and amlodipine at home doses as BP allows, with hold parameters (3) Restless legs syndrome: Code(s): G25.81 - Restless legs syndrome Status: Chronic Assessment and Plan: Chronic, continue home meds (4) Coronary artery disease: Qualifiers: Associated angina: without angina Coronary Disease-Associated Artery/Lesion type: bypass graft [place] vs. transplanted heart: [place] heart Qualified Code(s): I25.810 - Atherosclerosis of coronary artery bypass graft(s) without angina pectoris Code(s): I25.10 - Atherosclerotic heart disease of [place] coronary artery without angina pectoris Status: Chronic Assessment and Plan: Chronic, stable, history of CABG Holding aspirin and Plavix for acute anemia since admission 08/02/22. Will continue to hold for now in case plan for surgery this hospital stay. Continue statin, amlodipine, lisinopril, and metoprolol at home doses as BP tolerates Monitor vitals.? No active chest pain (5) Osteoarthritis: Qualifiers: Osteoarthritis location: unspecified site Osteoarthritis type: unspecified Qualified Code(s): M19.90 - Unspecified osteoarthritis, unspecified site Code(s): M19.90 - Unspecified osteoarthritis, unspecified site Status: Chronic Assessment and Plan: Chronic, stable, she has chronic lower back pain and chronic hip pain Continue gabapentin at home dose and PRN tramadol Avoid NSAIDs such as Aleve (6) Tobacco use: Code(s): Z72.0 - Tobacco use Status: Chronic Assessment and Plan: Current everyday smoker with 55 pack-year smoking history.? nicotine patch as needed smoking cessation education given (7) Polyp of ascending colon: Qualifiers: Colon polyp type: unspecified Qualified Code(s): K63.5 - Polyp of colon Code(s): K63.5 - Polyp of colon Status: Chronic Assessment and Plan: colonoscopy with single medium sessile polyp to proximal ascending colon with stigmata of bleeding from polyps but no active blood. Biopsies take and polyp tagged. laparoscopic right colectomy planned for Mond
--- NOTE | 2022-08-08 13:18 | PC.NURSE ---
pt to surgery via bed, first unit of blood infusing
[2022-08-08] MEDS: KETOROLAC 15 MG/ML VIAL (*BKC) IV PUSH (14:07)
[2022-08-08] MEDS: ACETAMINOPHEN 500 MG TABLET 1000 MG PO (14:37)
[2022-08-08] MEDS: ALVIMOPAN 12 MG CAPSULE PO (14:37)
--- NOTE | 2022-08-08 14:45 | SUR.PREOP ---
patient and family updated about time delay
--- NOTE | 2022-08-08 15:35 | SUR.PREOP ---
patient and family updated again on time delay
--- NOTE | 2022-08-08 16:04 | WPDHPUPDATE1 ---
History and Physical Update Update Date/Time: 08/08/22 16:04 History and Physical has been reviewed, including an updated exam of the patient. There are NO changes in the patient's condition. Risks, benefits, and alternatives have been discussed and questions answered. Patient agrees to proceed with procedure.
--- NOTE | 2022-08-08 16:56 | WPDANESEPPF ---
Anes - Initial Pre Proc Eval Procedure: Operation Date: 08/05/22 14:00 Proposed Procedures p Esophagogastroduodenoscopy & Colonoscopy - Eulalio Sharma MD Operation Date: 08/08/22 15:00 Proposed Procedures p Hand Assisted Laparoscopic Right Colectomy - Phillip Guy MD Date/Time: 08/08/22 16:56 Surgeon: Deepti Mcmahon MD Pre Op Diagnosis: anemia Patient Data Age: 77 Gender: F Height: 1.7 m Weight: 99.9 kg Last Vital Signs Temp 36.3 C L 08/08/22 16:16 Pulse 53 L 08/08/22 16:16 Resp 16 08/08/22 16:16 BP 170/57 H 08/08/22 16:16 Pulse Ox 95 08/08/22 16:16 O2 Del Method Room Air 08/08/22 13:30 Allergies Allergy/AdvReac Type Severity Reaction Status Date / Time No Known Allergies Allergy Verified 08/05/22 12:24 Home Medications Medication Instructions Recorded Confirmed Type amlodipine 5 mg tablet 5 mg PO DAILY 09/21/19 08/03/22 History aspirin 81 mg chewable tablet 81 mg PO DAILY 09/21/19 08/03/22 History folic acid 400 mcg tablet 0.4 mg PO BID 09/21/19 08/03/22 History metoprolol tartrate 25 mg tablet 12.5 mg PO BID 09/21/19 08/03/22 History omega-3 fatty acids-fish oil 340 1 cap PO DAILY 09/21/19 08/03/22 History mg-1,000 mg capsule nitroglycerin 0.4 mg sublingual 0.4 mg sublingual DIRECTED PRN 09/24/19 08/03/22 Rx tablet chest pain #25 tabs pantoprazole 40 mg tablet,delayed 40 mg PO DAILY #30 tabs 09/24/19 08/03/22 Rx release mecobalamin (vitamin B12) 1,000 1,000 mcg sublingual DAILY #90 tabs 07/09/20 08/03/22 Rx mcg disintegrating tablet,sublingual acetaminophen 325 mg tablet ([place] 650 mg PO Q6H PRN Mild Pain (1-3) 03/28/21 08/03/22 Rx (acetaminophen)) Or Fever #0 tabs atorvastatin 40 mg tablet 40 mg PO QHS 07/01/21 08/03/22 History calcium carbonate 600 mg-vitamin 1 cap PO DAILY 01/10/22 08/03/22 History D3 12.5 mcg (500 unit) capsule (Calcium 600 with Vitamin D3) lisinopril 10 mg tablet 10 mg PO DAILY #90 tabs 02/28/22 08/03/22 Rx clopidogrel 75 mg tablet 75 mg PO QAM #90 tabs 04/14/22 08/03/22 Rx cholecalciferol (vitamin D3) 50 50 mcg PO DAILY #90 caps 05/27/22 08/03/22 Rx mcg (2,000 unit) capsule paroxetine HCl 20 mg tablet 40 mg PO DAILY #180 tabs 05/30/22 08/03/22 Rx gabapentin 300 mg capsule 300 mg PO Q8H #270 caps 07/08/22 08/03/22 Rx bupropion HCl 150 mg tablet,12 hr 150 mg PO BID #180 tabs 08/02/22 08/03/22 Rx sustained-release ropinirole 2 mg tablet 2 mg PO .QHS #90 tabs 08/02/22 08/03/22 Rx tramadol 50 mg tablet 50 mg PO Q8H PRN pain #90 tabs 08/02/22 08/03/22 Rx Laboratory Tests 08/06/22 08/08/22 08/08/22 09:40 05:52 05:52 WBC 7.0 K/mm3 K/mm3 (4.5-10.0) RBC 2.57 M/mm3 L M/mm3 (4.2-5.4) Hgb 6.8 g/dL L* g/dL (12.0-15.0) Hct 23.6 % L % (37.0-47.0) MCV 91.8 fl fl (80-100) MCH 26.5 pg pg (26-34) MCHC 28.8 g/dl L g/dl (32-36) RDW 19.8 % H % (11.5-14.5) Plt Count 177 k/mm3 k/mm3 (150-375) MPV 12.1 fl H fl (7.4-10.4) Immature Gran % (Auto) 0.7 % H % (0-0.5) Neut % (Auto) 75.8 % H % (45.5-73.1) Lymph % (Auto) 10.9 % L % (18.3-44.2) [place] % (Auto) 10.2 % H % (2.6-8.5) Eos % (Auto) 1.7 % % (0-4.4) Baso % (Auto) 0.7 % % (0.2-1.2) Lymph # (Auto) 0.76 K/mm3 L K/mm3 (0.9-3.2) [place] # (Auto) 0.7 K/mm3 H K/mm3 (0.1-0.6) Eos # (Auto) 0.1 K/mm3 K/mm3 (0-0.3) Baso # (Auto) 0.1 K/mm3 K/mm3 (0.0-0.1) Abs Immat Gran (auto) 0.05 K/mm3 H K/mm3 (0.00-0.031) Absolute Neuts (auto) 5.3 K/mm3 K/mm3 (1.3-6.7) Absolute Nucleated RBC 0.0 K/mm3 K/mm3 (0.0-0.012) Nucleated RBC % 0.3 % H % (0.0-0.2) Platelet Estimate Adequate (Adequate) Polychromasia 1+ (NORMAL) Hypochromasia 3+ (NORMAL) Anisocytosis 2+ (NORMAL) Micr
[2022-08-08] MEDS: ceFAZolin 2 GM/D5W 50 ML 2 GM/50 ML BAG IVPB (17:45)
[2022-08-08] MEDS: LIDO 1%/EPINEPHRINE/PF 1:200,000 30 ML VIAL XX (17:45)
[2022-08-08] MEDS: metroNIDAZOLE 500 MG/ISO 100ML 500 MG/100 ML BAG 100 MG IVPB (18:23)
[2022-08-08] MEDS: LACTATED RINGERS 1,000 ML 30 ML IV CONT (19:00)
--- NOTE | 2022-08-08 20:26 | W.PM.PROC2 ---
Procedure Note - Detailed Date of Procedure 08/08/22 Pre-op Diagnosis Ascending colon cancer Post-op Diagnosis Same Procedure Performed Hand access laparoscopic right colectomy Surgeon Phillip Guy MD Senior Manager [employer] Zhao FITZGERALD Anesthesia General and Local (1% lidocaine with epinephrine) Indications Patient presented with symptomatic severe anemia. Besides transfusion she also underwent EGD and colonoscopy. Colonoscopy showed an ulcerated lesion in the proximal ascending colon with stigmata of bleeding. Biopsies of this lesion are consistent with adenocarcinoma. She has continued to have occult lower GI bleeding and requires transfusion. She is taken to surgery now for hand access laparoscopic right colectomy. Findings The tattooed tumor was found easily. It was fairly small and was consistent with the pictures taken during colonoscopy. There was no evidence of metastatic disease. Description of Procedure The patient was taken to surgery and induced into general anesthesia. The abdomen was prepped and draped. The hand access port was marked on the skin just above the umbilicus. Local was infiltrated into the skin and the subcutaneous. Incision was made and dissection was carried down through the subcutaneous and to the midline fascia. The fascia was opened in the midline and then we entered the peritoneal cavity. The opening was extended the length of the wound. We then placed the Tera wound guard. The GelPort was placed. With the hand in the abdomen, I placed a 5 mm applied Medical trocar in the right lower quadrant after using local anesthetic. Another 5 mm port was placed in the left mid abdomen under direct visualization. We insufflated and placed the patient in Trendelenburg with the right-side elevated. I was able to find the cecum and appendix. I also found the distal ileum. I then scored across the base of the distal ileum at its mesentery. I developed a plane in the retroperitoneum. This plane was facilitated and proceeded cephalad until we reached the transverse mesocolon. The duodenum was seen and we stayed just above that. The kidney will was left in the retroperitoneum. I then elevated the distal ileum and using the LigaSure divided the mesentery to the distal ileum up to the proximal line of resection. I then found the ileocolic artery. I divided the mesentery on each side of the ileocolic artery. The artery was then thoroughly made hemostatic with the LigaSure and divided. I then took down the lateral peritoneal attachments to the ascending colon. The tattoo was easily seen and the lesion was palpable at the area of the tattoo. I then continued dividing the mesentery to the ascending colon up to the hepatic flexure. There were quite a few adhesions to the liver. These were taken down and the hepatocolic ligament was divided all using the LigaSure. I then found the proximal transverse colon mesentery. Again using the LigaSure I divided the transverse colon mesentery over to and including the right branch of the middle colic artery. The right branch was cauterized with the LigaSure and divided as well. I we then stopped insufflation and removed the GelPort. The ascending colon and distal ileum as well as most of the transverse colon was able to be eviscerated. I divided a little bit more mesentery to the proximal transverse colon as well as freed some of the omentum from the proximal transverse colon. I then placed the distal ileum and proximal transverse colon that were to be this site of the anastomosis side by side. Using 4-0 silk Lembert suture I sutured the distal ileum to the proximal transverse colon in [id number] fashion. I then made an enterotomy and colotomy and using the TLC 75 stapler, created a [id number] but functional end-to-end anastomosis. I then used the TLC stapler again and divided the bowel just beyond the enterotomy and colotomy. The specimen was then passed off. I oversewed the last
[2022-08-08 20:41] LABS: Soluble Transferrin Receptor 4.27 mg/L (0.76-1.76)
--- NOTE | 2022-08-08 22:00 | PC.NURSE ---
Pt arrived from post-op to room 247 at 2144. Will monitor vital signs, abdominal insicions, and I&Os.
[2022-08-08] MEDS: HYDROcodone/acetaminophen (*CRX) 7.5-325 MG TABLET 1 TAB PO (22:07)
[2022-08-08] MEDS: LACTATED RINGERS 1,000 ML 80 ML IV CONT (22:18)
[2022-08-09] VITALS (14 sets, daily range): BP systolic 104–177; BP diastolic 48–84; PULSE 61–101; RESP 12–18; TEMP 36.2–36.6; O2SAT 93–99
[2022-08-09] MEDS: GABAPENTIN 300 MG CAPSULE PO ×4 (01:14→20:54)
[2022-08-09] MEDS: rOPINIRole HCL 1 MG TABLET 2 MG PO ×2 (01:15→20:54)
[2022-08-09] MEDS: METOPROLOL TARTRATE 12.5 MG TABLET PO ×3 (01:15→20:54)
[2022-08-09 05:59] LABS: Hematocrit 31.8 % (37.0-47.0); Hemoglobin 9.9 g/dL (12.0-15.0); Mean Corpuscular HGB Conc 31.1 g/dl (32-36); Mean Corpuscular Hemoglobin 28.1 pg (26-34); Mean Corpuscular Volume 90.3 fl (80-100); Platelet Count Result 183 k/mm3 (150-375); Red Blood Count 3.52 M/mm3 (4.2-5.4); Red Cell Distribution Width 19.1 % (11.5-14.5); White Blood Count 14.2 K/mm3 (4.5-10.0)
[2022-08-09 06:15] LABS: Potassium 4.3 mmol/L (3.4-5.0)
[2022-08-09 06:24] LABS: Anion Gap 6 mmol/L (8-16); Blood Urea Nitrogen 11 mg/dL (7-17); Calcium 8.7 mg/dL (8.4-10.2); Carbon Dioxide 25 mmol/L (22-30); Chloride 102 mmol/L (98-107); Estimated CRCL calculation 64 ml/min; Estimated Glomerular Filt Rate > 60; Glucose 132 mg/dL (65-110); Sodium 133 mmol/L (137-145)
--- NOTE | 2022-08-09 07:09 | PM.PNGS ---
Progress Note: A&P Assessment and Plan (1) Polyp of ascending colon: Qualifiers: Colon polyp type: unspecified Qualified Code(s): K63.5 - Polyp of colon Code(s): K63.5 - Polyp of colon Status: Chronic Assessment and Plan: doing well postop day 1. Advanced to full liquids. Ambulate. (2) LIBERTAD (iron deficiency anemia): Code(s): D50.9 - Iron deficiency anemia, unspecified Status: Acute Assessment and Plan: H&H higher today after 2 units transfused preoperatively. Continue to monitor. Subjective Subjective Date/Time Seen: 08/09/22 07:09 Post Op day: 1 Patient reports: feels better, tolerating liquids well, no flatus and no bowel movement Exam GI: Inspection: non-distended and incision (Healing well) GI Palp: Yes Soft to palpation and Yes Tenderness to palpation present (GI) Auscultation: Hypoactive bowel sounds present Objective Data Vital Signs Vital Signs: Vital Signs - 24 hr 08/08/22 09:39 08/08/22 11:13 08/08/22 08:20 Temperature 36.2 C L Pulse Rate 62 52 L Respiratory Rate 18 Blood Pressure 141/48 H Pulse Oximetry 97 Oxygen Delivery Room Air Oxygen Flow Rate 08/08/22 11:32 08/08/22 13:30 08/08/22 14:17 Temperature 36.2 C L 36.5 C Pulse Rate 54 L 58 L 53 L Respiratory Rate 18 16 16 Blood Pressure 147/48 H 155/46 H 153/51 H Pulse Oximetry 98 95 95 Oxygen Delivery Room Air Oxygen Flow Rate 08/08/22 12:25 08/08/22 13:30 08/08/22 14:50 Temperature 36.1 C L 36.5 C 36.4 C L Pulse Rate 61 53 L 53 L Respiratory Rate 18 16 18 Blood Pressure 169/51 H 153/51 H 170/47 H Pulse Oximetry 100 95 95 Oxygen Delivery Oxygen Flow Rate 08/08/22 15:18 08/08/22 15:33 08/08/22 15:48 Temperature 36.4 C L 36.4 C 36.4 C L Pulse Rate 52 L 52 L 52 L Respiratory Rate 18 16 16 Blood Pressure 153/42 H 159/48 H 163/58 H Pulse Oximetry 97 97 93 Oxygen Delivery Oxygen Flow Rate 08/08/22 16:16 08/08/22 20:20 08/08/22 20:35 Temperature 36.3 C L 36.4 C Pulse Rate 53 L 54 L 52 L Respiratory Rate 16 12 12 Blood Pressure 170/57 H 137/45 L 129/45 L Pulse Oximetry 95 97 98 Oxygen Delivery Simple Face Mask Simple Face Mask Oxygen Flow Rate 8 8 08/08/22 20:50 08/08/22 21:05 08/08/22 21:25 Temperature Pulse Rate 53 L 56 L 57 L Respiratory Rate 14 12 13 Blood Pressure 125/47 L 144/43 H 145/51 H Pulse Oximetry 98 98 95 Oxygen Delivery Simple Face Mask Simple Face Mask Nasal Cannula Oxygen Flow Rate 8 8 2 08/08/22 21:50 08/08/22 22:03 08/08/22 22:23 Temperature 36.7 C 36.1 C L 36.1 C L Pulse Rate 58 L 59 L 61 Respiratory Rate 16 16 18 Blood Pressure 142/64 H 149/46 H 156/52 H Pulse Oximetry 91 92 90 Oxygen Delivery Oxygen Flow Rate 08/09/22 01:15 08/08/22 22:10 08/09/22 03:23 Temperature 36.6 C Pulse Rate 61 66 Respiratory Rate 18 Blood Pressure 146/48 H Pulse Oximetry 90 96 Oxygen Delivery Nasal Cannula Oxygen Flow Rate 2 Intake/Output Intake/Output: Intake & Output 08/06/22 08/07/22 08/08/22 08/09/22 23:59 23:59 23:59 23:59 Intake Total 1650 1690 1500 120 Output Total 200 Balance 1650 1690 1500 -80 Meds/Results Medications: Active Medications Generic Name Dose Route Start Last Admin Trade Name Freq PRN Reason Stop Dose Admin Acetaminophen 500 mg 08/08/22 21:38 Acetaminophen 500 Mg Tablet PO Q6H PRN Mild Pain (1-3) or Fever Hydrocodone Bitart/Acetaminophen 1 tab 08/08/22 21:38 08/08/22 22:07 Hydrocodone/Acetaminophen (*Crx) 7.5-325 Mg Tablet PO 1 tab Q4H PRN Administration Pain Rated 7-10 Enoxaparin Sodium 40 mg 08/09/22 09:00 Enoxaparin 40 Mg/0.4 Ml Syringe SUB-Q DAILY [facility] Ferrous Sulfate 324 mg 08/08/22 08:00 Ferrous Sulfate 324 Mg Tablet PO DAILY@0800 [facility] Gabapentin 300 mg 08/03/22 14:00 08/09/22 06:58 Gabapentin 300 Mg Capsule PO 300 mg Q8HR [facility] Administration Lactated Ringer's 00
[2022-08-09] MEDS: FERROUS SULFATE 324 MG TABLET PO (08:41)
[2022-08-09] MEDS: PANTOPRAZOLE 40 MG TABLET PO (08:42)
[2022-08-09] MEDS: PARoxetine 20 MG TABLET 40 MG PO (08:42)
[2022-08-09] MEDS: lisinopriL 10 MG TABLET PO (08:42)
[2022-08-09] MEDS: MORPHINE SULFATE (*CRX) 2 MG/ML INJ IV PUSH (09:01)
[2022-08-09] MEDS: ENOXAPARIN 40 MG/0.4 ML SYRINGE SUB-Q (09:14)
--- NOTE | 2022-08-09 09:46 | WPDGIPROGNO ---
Progress Note: A&P Assessment and Plan (1) Polyp of ascending colon: Qualifiers: Colon polyp type: unspecified Qualified Code(s): K63.5 - Polyp of colon Code(s): K63.5 - Polyp of colon Status: Chronic Assessment and Plan: Polyp of the colon confirmed to be adenocarcinoma. Final histology pending after resection surgically yesterday. Plan follow-up colonoscopy in 1 year. Subsequently every 3 years after that. Disposition per Surgical Service at this time. (2) Acute on chronic anemia: Code(s): D64.9 - Anemia, unspecified Status: Acute Assessment and Plan: Iron replacement suggested as iron indices were deficient. Subjective Date/time seen: 08/09/22 09:46 Patient alert comfortable this morning. Sitting upright bed. Tolerating liquids. Surgical report noted. Small cancerous growth in the ascending colon removed with right hemicolectomy yesterday. Review of Systems Review of Systems: Review of systems noncontributory. Exam Narrative: Physical exam reveals patient be alert comfortable at rest. Abdomen is soft. Incisions noted. Objective Data Vital Signs Vital Signs: Vital Signs - 24 hr 08/08/22 11:13 08/08/22 11:32 08/08/22 13:30 Temperature 97.1 F L 97.1 F L Pulse Rate 52 L 54 L 58 L Respiratory Rate 18 18 16 Blood Pressure 141/48 H 147/48 H 155/46 H Pulse Oximetry 97 98 95 Oxygen Delivery Room Air Oxygen Flow Rate 08/08/22 14:17 08/08/22 12:25 08/08/22 13:30 Temperature 97.7 F 97.0 F L 97.7 F Pulse Rate 53 L 61 53 L Respiratory Rate 16 18 16 Blood Pressure 153/51 H 169/51 H 153/51 H Pulse Oximetry 95 100 95 Oxygen Delivery Oxygen Flow Rate 08/08/22 14:50 08/08/22 15:18 08/08/22 15:33 Temperature 97.5 F L 97.5 F L 97.6 F Pulse Rate 53 L 52 L 52 L Respiratory Rate 18 18 16 Blood Pressure 170/47 H 153/42 H 159/48 H Pulse Oximetry 95 97 97 Oxygen Delivery Oxygen Flow Rate 08/08/22 15:48 08/08/22 16:16 08/08/22 20:20 Temperature 97.5 F L 97.4 F L 97.6 F Pulse Rate 52 L 53 L 54 L Respiratory Rate 16 16 12 Blood Pressure 163/58 H 170/57 H 137/45 L Pulse Oximetry 93 95 97 Oxygen Delivery Simple Face Mask Oxygen Flow Rate 8 08/08/22 20:35 08/08/22 20:50 08/08/22 21:05 Temperature Pulse Rate 52 L 53 L 56 L Respiratory Rate 12 14 12 Blood Pressure 129/45 L 125/47 L 144/43 H Pulse Oximetry 98 98 98 Oxygen Delivery Simple Face Mask Simple Face Mask Simple Face Mask Oxygen Flow Rate 8 8 8 08/08/22 21:25 08/08/22 21:50 08/08/22 22:03 Temperature 98.0 F 97.0 F L Pulse Rate 57 L 58 L 59 L Respiratory Rate 13 16 16 Blood Pressure 145/51 H 142/64 H 149/46 H Pulse Oximetry 95 91 92 Oxygen Delivery Nasal Cannula Oxygen Flow Rate 2 08/08/22 22:23 08/09/22 01:15 08/08/22 22:10 Temperature 97.0 F L Pulse Rate 61 61 Respiratory Rate 18 Blood Pressure 156/52 H Pulse Oximetry 90 90 Oxygen Delivery Nasal Cannula Oxygen Flow Rate 2 08/09/22 03:23 08/09/22 08:41 Temperature 97.8 F Pulse Rate 66 66 Respiratory Rate 18 Blood Pressure 146/48 H Pulse Oximetry 96 Oxygen Delivery Oxygen Flow Rate Intake/Output Intake/Output: Intake & Output 08/06/22 08/07/22 08/08/22 08/09/22 23:59 23:59 23:59 23:59 Intake Total 1650 1690 1500 600 Output Total 200 Balance 1650 1690 1500 400 Meds/Results Medications: Active Medications Generic Name Dose Route Start Last Admin Trade Name Freq PRN Reason Stop Dose Admin Acetaminophen 500 mg 08/08/22 21:38 Acetaminophen 500 Mg Tablet PO Q6H PRN Mild Pain (1-3) or Fever Hydrocodone Bitart/Acetaminophen 1 tab 08/08/22 21:38 08/08/22 22:07 Hydrocodone/Acetaminophen (*Crx) 7.5-325 Mg Tablet PO 1 tab Q4H PRN Administration Pain Rated 7-10 Enoxaparin Sodium 40 mg 08/09/22 09:00 08/09/22 09:14 Enoxaparin 40 Mg/0.4 Ml Syringe SUB-Q 40 mg DAILY [facility] Administration Ferrous Sulfate
[2022-08-09] MEDS: LACTATED RINGERS 1,000 ML 80 ML IV CONT (11:29)
--- NOTE | 2022-08-09 15:04 | P.PNIM_ITS ---
Progress Note: A&P Assessment and Plan (1) Acute on chronic anemia: Code(s): D64.9 - Anemia, unspecified Status: Acute Assessment and Plan: Patient presented to the ED with hgb 4.9. She reports taking generic Aleve once daily for arthritis pain intermittently. * FOBT negative in ED, but positive on sample from the floor. * given 2 units PRBC on admission. * Continue protonix 40 mg IV Q12 hours * Trend H&H and transfuse if hemoglobin is less than 7 or less than 8 and symptomatic * Serum iron, saturation, and ferritin low, TIBC high. Give Venofer 500 mg IV Q24 hours x 3 doses. Completed 3 days IV iron on 08/05/22. * B12 and folate within normal limits.? Continue home B12 and folic acid * Consult GI for evaluation and appreciate recommendations. * Hold aspirin and Plavix * EGD normal with random biopsies taken of duodenum to exclude celiac sprue * colonoscopy with single medium sessile polyp to proximal ascending colon with stigmata of bleeding from polyps but no active blood. Biopsies take and polyp tagged. * Awaiting surgical evaluation * 08/06/22 Hgb 7.0. Was 7.3 yesterday, she is slowly downtrending. Will give 1 unit PRBC now (total 3 this hospitalization). Repeat H/H in am. * 08/07/22 Hgb 7.8 after blood transfusion. Repeat labs in am for surgery Monday. Start oral iron supplement and vitamin C supplement. * 08/08/22 hemoglobin 6.8 this morning. Will give 2 units PRBC as surgery is planned this afternoon and 20 mg IV Lasix between units. Repeat hemoglobin following surgery * 08/09/22 Hgb 9.9 (2) Polyp of ascending colon: Qualifiers: Colon polyp type: unspecified Qualified Code(s): K63.5 - Polyp of colon Code(s): K63.5 - Polyp of colon Status: Chronic Assessment and Plan: colonoscopy with single medium sessile polyp to proximal ascending colon with stigmata of bleeding from polyps but no active blood. Biopsies take and polyp tagged. * 08/08/22 Hand access laparoscopic right colectomy completed. * Continue postop care per general surgery. * Counseled on IS use, ambulation, splinting and pain management. (3) HTN (hypertension): Qualifiers: Hypertension type: primary hypertension Qualified Code(s): I10 - Essential (primary) hypertension Code(s): I10 - Essential (primary) hypertension Status: Chronic Assessment and Plan: chronic, stable * Continue lisinopril, metoprolol and amlodipine at home doses as BP allows, with hold parameters (4) Restless legs syndrome: Code(s): G25.81 - Restless legs syndrome Status: Chronic Assessment and Plan: Chronic, continue home meds (5) Coronary artery disease: Qualifiers: Associated angina: without angina Coronary Disease-Associated Artery/Lesion type: bypass graft [place] vs. transplanted heart: [place] heart Qualified Code(s): I25.810 - Atherosclerosis of coronary artery bypass graft(s) without angina pectoris Code(s): I25.10 - Atherosclerotic heart disease of [place] coronary artery without angina pectoris Status: Chronic Assessment and Plan: Chronic, stable, history of CABG * Holding aspirin and Plavix for acute anemia since admission 08/02/22. Will continue to hold for now in case plan for surgery this hospital stay. * Continue statin, amlodipine, lisinopril, and metoprolol at home doses as BP tolerates * Monitor vitals.? No active chest pain (6) Osteoarthritis: Qualifiers: Osteoarthritis location: unspecified site Osteoarthritis type: unspecified Qualified Code(s): M19.90 - Unspecified osteoarthr
--- NOTE | 2022-08-09 15:04 | PM.IMPN ---
Progress Note: A&P Assessment and Plan (1) Acute on chronic anemia: Code(s): D64.9 - Anemia, unspecified Status: Acute Assessment and Plan: Patient presented to the ED with hgb 4.9. She reports taking generic Aleve once daily for arthritis pain intermittently. FOBT negative in ED, but positive on sample from the floor. given 2 units PRBC on admission. Continue protonix 40 mg IV Q12 hours Trend H&H and transfuse if hemoglobin is less than 7 or less than 8 and symptomatic Serum iron, saturation, and ferritin low, TIBC high. Give Venofer 500 mg IV Q24 hours x 3 doses. Completed 3 days IV iron on 08/05/22. B12 and folate within normal limits.? Continue home B12 and folic acid Consult GI for evaluation and appreciate recommendations. Hold aspirin and Plavix EGD normal with random biopsies taken of duodenum to exclude celiac sprue colonoscopy with single medium sessile polyp to proximal ascending colon with stigmata of bleeding from polyps but no active blood. Biopsies take and polyp tagged. Awaiting surgical evaluation 08/06/22 Hgb 7.0. Was 7.3 yesterday, she is slowly downtrending. Will give 1 unit PRBC now (total 3 this hospitalization). Repeat H/H in am. 08/07/22 Hgb 7.8 after blood transfusion. Repeat labs in am for surgery Monday. Start oral iron supplement and vitamin C supplement. 08/08/22 hemoglobin 6.8 this morning. Will give 2 units PRBC as surgery is planned this afternoon and 20 mg IV Lasix between units. Repeat hemoglobin following surgery 08/09/22 Hgb 9.9 (2) Polyp of ascending colon: Qualifiers: Colon polyp type: unspecified Qualified Code(s): K63.5 - Polyp of colon Code(s): K63.5 - Polyp of colon Status: Chronic Assessment and Plan: colonoscopy with single medium sessile polyp to proximal ascending colon with stigmata of bleeding from polyps but no active blood. Biopsies take and polyp tagged. 08/08/22 Hand access laparoscopic right colectomy completed. Continue postop care per general surgery. Counseled on IS use, ambulation, splinting and pain management. (3) HTN (hypertension): Qualifiers: Hypertension type: primary hypertension Qualified Code(s): I10 - Essential (primary) hypertension Code(s): I10 - Essential (primary) hypertension Status: Chronic Assessment and Plan: chronic, stable Continue lisinopril, metoprolol and amlodipine at home doses as BP allows, with hold parameters (4) Restless legs syndrome: Code(s): G25.81 - Restless legs syndrome Status: Chronic Assessment and Plan: Chronic, continue home meds (5) Coronary artery disease: Qualifiers: Associated angina: without angina Coronary Disease-Associated Artery/Lesion type: bypass graft [place] vs. transplanted heart: [place] heart Qualified Code(s): I25.810 - Atherosclerosis of coronary artery bypass graft(s) without angina pectoris Code(s): I25.10 - Atherosclerotic heart disease of [place] coronary artery without angina pectoris Status: Chronic Assessment and Plan: Chronic, stable, history of CABG Holding aspirin and Plavix for acute anemia since admission 08/02/22. Will continue to hold for now in case plan for surgery this hospital stay. Continue statin, amlodipine, lisinopril, and metoprolol at home doses as BP tolerates Monitor vitals.? No active chest pain (6) Osteoarthritis: Qualifiers: Osteoarthritis location: unspecified site Osteoarthritis type: unspecified Qualified Code(s): M19.90 - Unspecified osteoarthritis, unspecified site Code(s): M19.90 - Unspecified osteoarthritis, unspecified site Status: Chronic Assessment and Plan: Chronic, stable, she has chronic lower back pain and chronic hip pain Continue gabapentin at home dose and PRN tramadol Avoid NSAIDs such as Aleve (7) Tobacco use: Code(s): Z72.0 - Tobacco use Status: Chronic
[2022-08-09] MEDS: amLODIPine BESYLATE 5 MG TABLET PO (15:45)
[2022-08-09] MEDS: ACETAMINOPHEN 500 MG TABLET PO (17:05)
[2022-08-10 03:32] VITALS: BP 150/62; PULSE 70; RESP 18; TEMP 36.6; O2SAT 90
[2022-08-10] MEDS: HYDROcodone/acetaminophen (*CRX) 7.5-325 MG TABLET 1 TAB PO ×2 (03:34→12:42)
--- NOTE | 2022-08-10 05:49 | PC.NURSE ---
PT DRANK 175ML OF ENSURE
[2022-08-10 06:35] LABS: Hematocrit 31.1 % (37.0-47.0); Hemoglobin 9.5 g/dL (12.0-15.0); Mean Corpuscular HGB Conc 30.5 g/dl (32-36); Mean Corpuscular Hemoglobin 27.6 pg (26-34); Mean Corpuscular Volume 90.4 fl (80-100); Mean Platelet Volume 12.4 fl (7.4-10.4); Platelet Count Result 190 k/mm3 (150-375); Red Blood Count 3.44 M/mm3 (4.2-5.4); Red Cell Distribution Width 19.9 % (11.5-14.5); White Blood Count 8.9 K/mm3 (4.5-10.0)
[2022-08-10] MEDS: GABAPENTIN 300 MG CAPSULE PO ×3 (06:36→20:42)
[2022-08-10 06:43] LABS: Anion Gap 4 mmol/L (8-16); Blood Urea Nitrogen 13 mg/dL (7-17); Calcium 8.8 mg/dL (8.4-10.2); Carbon Dioxide 28 mmol/L (22-30); Chloride 103 mmol/L (98-107); Estimated CRCL calculation 73 ml/min; Estimated Glomerular Filt Rate > 60; Glucose 109 mg/dL (65-110); Potassium 3.8 mmol/L (3.4-5.0); Sodium 135 mmol/L (137-145)
--- NOTE | 2022-08-10 06:43 | PM.PNGS ---
Progress Note: A&P Assessment and Plan (1) Polyp of ascending colon: Qualifiers: Colon polyp type: unspecified Qualified Code(s): K63.5 - Polyp of colon Code(s): K63.5 - Polyp of colon Status: Chronic Assessment and Plan: doing well postop day 2. Pathology is pending. Tolerating low residue diet. Possibly home tomorrow with okay with hospitalist. (2) LIBERTAD (iron deficiency anemia): Code(s): D50.9 - Iron deficiency anemia, unspecified Status: Acute Assessment and Plan: Labs pending today. Continue iron supplement. (3) Antiplatelet or antithrombotic long-term use: Code(s): Z79.02 - retirement (current) use of antithrombotics/antiplatelets Status: Chronic Assessment and Plan: Continue to hold. Subjective Subjective Date/Time Seen: 08/10/22 06:43 Post Op day: 2 Patient reports: no new complaints, still having pain, tolerating a regular diet, flatus, no bowel movement and afebrile Exam Const: General: comfortable and no acute distress; No confusion Orientation/consciousness: patient oriented x3 and No confusion GI: Inspection: non-distended and incision ( healing well) GI Palp: Yes Soft to palpation, Yes Tenderness to palpation present (GI), No Guarding due to palpation present (GI) and No Rebound tenderness present Auscultation: Hypoactive bowel sounds present Neuro: General: patient oriented x3, no focal motor deficits and No confusion Extrem: General: no calf tenderness and no edema Psych: Affect: normal affect Insight: Good insight present (Psych) Judgement: Good judgement present (Psych) Objective Data Vital Signs Vital Signs: Vital Signs - 24 hr 08/09/22 08:41 08/09/22 10:23 08/09/22 11:27 Temperature 36.3 C L 36.4 C Pulse Rate 66 67 101 H Respiratory Rate 14 16 Blood Pressure 173/60 H 171/84 H Pulse Oximetry 95 99 Oxygen Delivery Oxygen Flow Rate 08/09/22 14:40 08/09/22 08:00 08/09/22 18:05 Temperature 36.2 C L 36.2 C L Pulse Rate 71 70 Respiratory Rate 12 16 Blood Pressure 177/56 H Pulse Oximetry 97 98 Oxygen Delivery Nasal Cannula Oxygen Flow Rate 2 08/09/22 19:45 08/09/22 20:00 08/09/22 20:52 Temperature 36.3 C L Pulse Rate 69 Respiratory Rate 18 Blood Pressure 104/72 158/59 H Pulse Oximetry 97 98 Oxygen Delivery Nasal Cannula Oxygen Flow Rate 2 08/09/22 20:54 08/09/22 22:36 08/09/22 22:00 Temperature 36.5 C Pulse Rate 72 69 Respiratory Rate 18 Blood Pressure 162/65 H Pulse Oximetry 96 93 Oxygen Delivery Nasal Cannula Oxygen Flow Rate 1 08/10/22 03:32 Temperature 36.6 C Pulse Rate 70 Respiratory Rate 18 Blood Pressure 150/62 H Pulse Oximetry 90 Oxygen Delivery Oxygen Flow Rate Intake/Output Intake/Output: Intake & Output 08/07/22 08/08/22 08/09/22 08/10/22 23:59 23:59 23:59 23:59 Intake Total 1690 1500 2870 415 Output Total 500 Balance 1690 1500 2370 415 Meds/Results Medications: Active Medications Generic Name Dose Route Start Last Admin Trade Name Freq PRN Reason Stop Dose Admin Acetaminophen 500 mg 08/08/22 21:38 08/09/22 17:05 Acetaminophen 500 Mg Tablet PO 500 mg Q6H PRN Administration Mild Pain (1-3) or Fever Hydrocodone Bitart/Acetaminophen 1 tab 08/08/22 21:38 08/10/22 03:34 Hydrocodone/Acetaminophen (*Crx) 7.5-325 Mg Tablet PO 1 tab Q4H PRN Administration Pain Rated 7-10 Amlodipine Besylate 5 mg 08/09/22 14:55 08/09/22 15:45 Amlodipine Besylate 5 Mg Tablet PO 5 mg QAM [facility] Administration Calcium Carbonate 500 mg 08/10/22 09:00 Calcium/Vitamin D 500 Mg Tablet PO 09/09/22 08:59 DAILY [facility] Enoxaparin Sodium 40 mg 08/09/22 09:00 08/09/22 09:14 Enoxaparin 40 Mg/0.4 Ml Syringe SUB-Q 40 mg DAILY [facility] Administration Ferrous Sulfate 324 mg 08/08/22 08:00 08/09/22 08:41 Ferrous Sulfate 324 Mg Tablet PO 324 mg DAILY@0800 [facility] Administratio
--- NOTE | 2022-08-10 08:00 | PCNWS ---
Weekly nutritional screen. Patient is tolerating current diet with adequate intake. No weight loss reported. No nutritional needs at this time.
[2022-08-10 09:54] VITALS: BP 151/42; PULSE 68; RESP 18; TEMP 36.1; O2SAT 94
[2022-08-10 10:02] VITALS: PULSE 74
[2022-08-10] MEDS: ENOXAPARIN 40 MG/0.4 ML SYRINGE SUB-Q (10:02)
[2022-08-10] MEDS: PANTOPRAZOLE 40 MG TABLET PO (10:02)
[2022-08-10] MEDS: FERROUS SULFATE 324 MG TABLET PO (10:02)
[2022-08-10] MEDS: lisinopriL 10 MG TABLET PO (10:02)
[2022-08-10] MEDS: CHOLECALCIFEROL 1,000 UNITS TABLET 2000 UNITS PO (10:02)
[2022-08-10] MEDS: amLODIPine BESYLATE 5 MG TABLET PO (10:02)
[2022-08-10] MEDS: METOPROLOL TARTRATE 12.5 MG TABLET PO ×2 (10:02→20:40)
[2022-08-10] MEDS: PARoxetine 20 MG TABLET 40 MG PO (10:03)
--- NOTE | 2022-08-10 11:34 | PM.IMPN ---
Progress Note: A&P Assessment and Plan (1) Acute on chronic anemia: Code(s): D64.9 - Anemia, unspecified Status: Acute Assessment and Plan: Patient presented to the ED with hgb 4.9. She reports taking generic Aleve once daily for arthritis pain intermittently. FOBT negative in ED, but positive on sample from the floor. Given 2 units PRBC on admission. Continue protonix 40 mg IV Q12 hours Trend H&H and transfuse if hemoglobin is less than 7 or less than 8 and symptomatic Serum iron, saturation, and ferritin low, TIBC high. Give Venofer 500 mg IV Q24 hours x 3 doses. Completed 3 days IV iron on 08/05/22. B12 and folate within normal limits.? Continue home B12 and folic acid. Consult GI for evaluation and appreciate recommendations. Hold aspirin and Plavix EGD normal with random biopsies taken of duodenum to exclude celiac sprue Colonoscopy with single medium sessile polyp to proximal ascending colon with stigmata of bleeding from polyps but no active blood. Biopsies taken and polyp tagged. 08/06/22 Hgb 7.0. Was 7.3 yesterday, she is slowly downtrending. Will give 1 unit PRBC now (total 3 this hospitalization). Repeat H/H in am. 08/07/22 Hgb 7.8 after blood transfusion. Repeat labs in am for surgery Monday. Start oral iron supplement and vitamin C supplement. 08/08/22 hemoglobin 6.8 this morning. Will give 2 units PRBC as surgery is planned this afternoon and 20 mg IV Lasix between units. 08/09/22 Hgb 9.9 postoperatively 08/10/2022 hemoglobin 9.5 (2) Polyp of ascending colon: Qualifiers: Colon polyp type: unspecified Qualified Code(s): K63.5 - Polyp of colon Code(s): K63.5 - Polyp of colon Status: Chronic Assessment and Plan: 08/08/22 Hand access laparoscopic right colectomy completed. Continue postop care per general surgery. Counseled on NSAID use, ambulation, splinting and pain management. See above Per surgery patient will possibly be discharged tomorrow. (3) HTN (hypertension): Qualifiers: Hypertension type: primary hypertension Qualified Code(s): I10 - Essential (primary) hypertension Code(s): I10 - Essential (primary) hypertension Status: Chronic Assessment and Plan: chronic, stable Continue lisinopril, metoprolol and amlodipine at home doses as BP allows, with hold parameters (4) Restless legs syndrome: Code(s): G25.81 - Restless legs syndrome Status: Chronic Assessment and Plan: Chronic, continue home meds (5) Coronary artery disease: Qualifiers: Associated angina: without angina Coronary Disease-Associated Artery/Lesion type: bypass graft [place] vs. transplanted heart: [place] heart Qualified Code(s): I25.810 - Atherosclerosis of coronary artery bypass graft(s) without angina pectoris Code(s): I25.10 - Atherosclerotic heart disease of [place] coronary artery without angina pectoris Status: Chronic Assessment and Plan: Chronic, stable, history of CABG Holding aspirin and Plavix for acute anemia since admission 08/02/22. Continue statin, amlodipine, lisinopril, and metoprolol at home doses as BP tolerates Monitor vitals.? No active chest pain (6) Osteoarthritis: Qualifiers: Osteoarthritis location: unspecified site Osteoarthritis type: unspecified Qualified Code(s): M19.90 - Unspecified osteoarthritis, unspecified site Code(s): M19.90 - Unspecified osteoarthritis, unspecified site Status: Chronic Assessment and Plan: Chronic, stable, she has chronic lower back pain and chronic hip pain Continue gabapentin at home dose and PRN tramadol Avoid NSAIDs such as Aleve (7) Tobacco use: Code(s): Z72.0 - Tobacco use Status: Chronic Assessment and Plan: Current everyday smoker with 55 pack-year smoking history.? Nicotine patch as needed Smoking cessation education given Plan Code status:? Full code Disposition:? Discharge p
[2022-08-10 13:33] VITALS: BP 158/64; PULSE 67; RESP 16; TEMP 36.2; O2SAT 94
[2022-08-10 20:40] VITALS: PULSE 64
[2022-08-10] MEDS: traMADol HCL (*CRX) 50 MG TABLET PO (20:40)
[2022-08-10] MEDS: rOPINIRole HCL 1 MG TABLET 2 MG PO (20:41)
[2022-08-10 22:32] VITALS: BP 182/43; PULSE 61; RESP 16; TEMP 36.4; O2SAT 94
[2022-08-11 02:00] VITALS: BP 165/47; PULSE 58; RESP 18; TEMP 36.2; O2SAT 95
[2022-08-11] MEDS: HYDROcodone/acetaminophen (*CRX) 7.5-325 MG TABLET 1 TAB PO (02:47)
[2022-08-11] MEDS: GABAPENTIN 300 MG CAPSULE PO ×2 (05:13→13:35)
[2022-08-11 05:53] VITALS: BP 148/54; PULSE 60; RESP 16; TEMP 36.2; O2SAT 93
[2022-08-11 06:11] LABS: Hemoglobin 10.3 g/dL (12.0-15.0); Mean Corpuscular HGB Conc 30.3 g/dl (32-36); Mean Corpuscular Hemoglobin 27.6 pg (26-34); Mean Corpuscular Volume 91.2 fl (80-100); Mean Platelet Volume 12.2 fl (7.4-10.4); Platelet Count Result 198 k/mm3 (150-375); Red Blood Count 3.73 M/mm3 (4.2-5.4); Red Cell Distribution Width 20.2 % (11.5-14.5); White Blood Count 7.9 K/mm3 (4.5-10.0)
[2022-08-11 06:23] LABS: Alanine Aminotransferase 14 U/L (6-35); Albumin Level 3.5 g/dL (3.5-5.1); Alkaline Phosphatase 68 U/L (38-126); Anion Gap 4 mmol/L (8-16); Aspartate Amino Transferase 17 U/L (14-36); Bilirubin,Total 0.8 mg/dL (0.2-1.3); Blood Urea Nitrogen 11 mg/dL (7-17); Calcium 8.8 mg/dL (8.4-10.2); Carbon Dioxide 32 mmol/L (22-30); Chloride 101 mmol/L (98-107); Estimated CRCL calculation 73 ml/min; Estimated Glomerular Filt Rate > 60; Glucose 77 mg/dL (65-110); Potassium 3.6 mmol/L (3.4-5.0); Sodium 137 mmol/L (137-145)
--- NOTE | 2022-08-11 06:48 | PM.PNGS ---
Progress Note: A&P Assessment and Plan (1) Polyp of ascending colon: Qualifiers: Colon polyp type: unspecified Qualified Code(s): K63.5 - Polyp of colon Code(s): K63.5 - Polyp of colon Status: Chronic Assessment and Plan: doing well 3 days after surgery. Okay to discharge from surgical standpoint. I will see her in the office in 2 weeks. (2) LIBERTAD (iron deficiency anemia): Code(s): D50.9 - Iron deficiency anemia, unspecified Status: Acute Assessment and Plan: Continued iron supplement (3) Antiplatelet or antithrombotic long-term use: Code(s): Z79.02 - intermediate designer (current) use of antithrombotics/antiplatelets Status: Chronic Assessment and Plan: will restart as an outpatient. Do not restart at discharge. Subjective Subjective Date/Time Seen: 08/11/22 06:48 Post Op day: 3 Patient reports: no new complaints and afebrile Exam GI: Inspection: non-distended and incision ( Dry and healing well) GI Palp: Yes Soft to palpation and Yes Tenderness to palpation present (GI) Auscultation: normal bowel sounds Objective Data Vital Signs Vital Signs: Vital Signs - 24 hr 08/10/22 09:54 08/10/22 10:02 08/10/22 10:05 Temperature 36.1 C L Pulse Rate 68 74 Respiratory Rate 18 Blood Pressure 151/42 H Pulse Oximetry 94 Oxygen Delivery Room Air 08/10/22 13:33 08/10/22 20:40 08/10/22 22:32 Temperature 36.2 C L 36.4 C Pulse Rate 67 64 61 Respiratory Rate 16 16 Blood Pressure 158/64 H 182/43 H Pulse Oximetry 94 94 Oxygen Delivery 08/11/22 02:00 08/11/22 05:53 Temperature 36.2 C L 36.2 C L Pulse Rate 58 L 60 Respiratory Rate 18 16 Blood Pressure 165/47 H 148/54 H Pulse Oximetry 95 93 Oxygen Delivery Intake/Output Intake/Output: Intake & Output 08/08/22 08/09/22 08/10/22 08/11/22 23:59 23:59 23:59 23:59 Intake Total 1500 2870 1135 480 Output Total 500 Balance 1500 2370 1135 480 Meds/Results Medications: Active Medications Generic Name Dose Route Start Last Admin Trade Name Freq PRN Reason Stop Dose Admin Acetaminophen 500 mg 08/08/22 21:38 08/09/22 17:05 Acetaminophen 500 Mg Tablet PO 500 mg Q6H PRN Administration Mild Pain (1-3) or Fever Hydrocodone Bitart/Acetaminophen 1 tab 08/08/22 21:38 08/11/22 02:47 Hydrocodone/Acetaminophen (*Crx) 7.5-325 Mg Tablet PO 1 tab Q4H PRN Administration Pain Rated 7-10 Amlodipine Besylate 5 mg 08/09/22 14:55 08/10/22 10:02 Amlodipine Besylate 5 Mg Tablet PO 5 mg QAM BERKLEY Administration Calcium Carbonate 500 mg 08/10/22 09:00 08/10/22 10:02 Calcium/Vitamin D 500 Mg Tablet PO 09/09/22 08:59 500 mg DAILY BERKLEY Administration Enoxaparin Sodium 40 mg 08/09/22 09:00 08/10/22 10:02 Enoxaparin 40 Mg/0.4 Ml Syringe SUB-Q 40 mg DAILY BERKLEY Administration Ferrous Sulfate 324 mg 08/08/22 08:00 08/10/22 10:02 Ferrous Sulfate 324 Mg Tablet PO 324 mg DAILY@0800 BERKLEY Administration Gabapentin 300 mg 08/03/22 14:00 08/11/22 05:13 Gabapentin 300 Mg Capsule PO 300 mg Q8HR BERKLEY Administration Hydralazine HCl 10 mg 08/09/22 14:55 Hydralazine Hcl 20 Mg/Ml Vial IV PUSH Q6HR PRN Blood Pressure - High Lisinopril 10 mg 08/03/22 09:00 08/10/22 10:02 Lisinopril 10 Mg Tablet PO 10 mg DAILY BERKLEY Administration Metoprolol Tartrate 12.5 mg 08/03/22 09:15 08/10/22 20:40 Metoprolol Tartrate 12.5 Mg Tablet PO 12.5 mg Q12HR BERKLEY Administration Morphine Sulfate 1 mg 08/09/22 12:29 Morphine Sulfate (*Crx) 2 Mg/Ml Inj IV PUSH Q2H PRN Pain Rated 4-6 Morphine Sulfate 2 mg 08/09/22 12:29 Morphine Sulfate (*Crx) 4 Mg/Ml Inj IV PUSH Q2H PRN Pain Rated 7-10 Naloxone HCl 0.1 mg 08/08/22 21:38 Naloxone Hcl 0.4 Mg/Ml Vial IV PUSH Q2M PRN Opiate Reversal Ondansetron HCl 4 mg 08/08/22 21:38 Ondansetron Inj 4 Mg/2 Ml Vial IV PUSH
[2022-08-11] MEDS: FERROUS SULFATE 324 MG TABLET PO (08:50)
[2022-08-11] MEDS: CHOLECALCIFEROL 1,000 UNITS TABLET 2000 UNITS PO (08:51)
[2022-08-11] MEDS: PANTOPRAZOLE 40 MG TABLET PO (08:51)
[2022-08-11] MEDS: lisinopriL 10 MG TABLET PO (08:52)
[2022-08-11] MEDS: PARoxetine 20 MG TABLET 40 MG PO (08:52)
[2022-08-11] MEDS: ENOXAPARIN 40 MG/0.4 ML SYRINGE SUB-Q (08:52)
[2022-08-11] MEDS: amLODIPine BESYLATE 5 MG TABLET PO (08:52)
[2022-08-11] MEDS: METOPROLOL TARTRATE 12.5 MG TABLET PO (08:53)
[2022-08-11 10:52] VITALS: BP 147/62; PULSE 61; RESP 18; TEMP 36.6; O2SAT 94
--- NOTE | 2022-08-11 11:32 | PM.DS ---
DS: Admitting Diagnosis Discharge Date 08/11/2022 Admitting Diagnosis Anemia DS: Discharge Diagnosis Discharge Diagnosis (1) Acute on chronic anemia: Code(s): D64.9 - Anemia, unspecified Status: Acute (2) Polyp of ascending colon: Qualifiers: Colon polyp type: unspecified Qualified Code(s): K63.5 - Polyp of colon Code(s): K63.5 - Polyp of colon Status: Chronic (3) HTN (hypertension): Qualifiers: Hypertension type: primary hypertension Qualified Code(s): I10 - Essential (primary) hypertension Code(s): I10 - Essential (primary) hypertension Status: Chronic (4) Restless legs syndrome: Code(s): G25.81 - Restless legs syndrome Status: Chronic (5) Coronary artery disease: Qualifiers: Associated angina: without angina Coronary Disease-Associated Artery/Lesion type: bypass graft [place] vs. transplanted heart: [place] heart Qualified Code(s): I25.810 - Atherosclerosis of coronary artery bypass graft(s) without angina pectoris Code(s): I25.10 - Atherosclerotic heart disease of [place] coronary artery without angina pectoris Status: Chronic (6) Osteoarthritis: Qualifiers: Osteoarthritis location: unspecified site Osteoarthritis type: unspecified Qualified Code(s): M19.90 - Unspecified osteoarthritis, unspecified site Code(s): M19.90 - Unspecified osteoarthritis, unspecified site Status: Chronic (7) Tobacco use: Code(s): Z72.0 - Tobacco use Status: Chronic DS: Summary Hospital Course Reason for hospitalization: Anemia Hospital Course: 77-year-old patient with a history of iron-deficiency anemia, hypertension, [place] and CVA. Patient presented to the ER due to chief complaint of abnormal labs. PCP had found her to have a hemoglobin of 4.5. Patient had been feeling more fatigued lately and had been getting increasingly worse over the last 3 days. Patient describes having dip see a on exertion. Denies having melena or hematochezia. Patient does have a history of anemia but unable to find the cause of it. Patient's previous colonoscopy was 5-6 years ago and did not reveal any complications. Patient given 2 units PRBC on admission, Protonix 40 mg IV q.12 hours and GI was consulted. Iron studies revealed low ferritin, saturation, and serum iron with a high TIBC. Patient given Venofer 500 mg IV Q24 hours x 3 doses. H&H was trended. Patient found to have heme positive stool on the floor. GI planned for colonoscopy and EGD. Patient's aspirin and Plavix were held. Colonoscopy revealed sessile polyp in the ascending colon suspicious for malignancy. Biopsy taken and sent for pathology. CEA was 5 point, mildly elevated. EGD no acute concerns. General surgery consulted due to malignancy concerns. Patient scheduled to have laparoscopic right colectomy due to this polyp being the source of patient's bleeding. Patient given another unit of PRBC on 08/06/2022 due to hemoglobin of 7. Patient's hemoglobin on 08/08/2022 was 6.8. Patient received 2 units of PRBC preoperatively.. Patient underwent surgery. Polyp of the colon confirmed to be adenocarcinoma. Plan to follow-up with colonoscopy in 1 year. Hemoglobin postop day 19.9. Patient's hemoglobin has remained stable throughout her hospital stay postoperatively. On discharge patient's hemoglobin 10.3 and increasing. Time Spent with Patient Time attestation: Total time spent providing and/or coordinating discharge services: Exam Narrative: GENERAL: Comfortable, no acute distress HENMT: moist mucous membranes EYES: EOM intact b/l NECK: no lymphadenopathy RESPIRATORY: Decreased breath sounds CARDIO: RRR GI: 5-7 cm incision along umbilicus, 1 cm incision in left lower quadrant; soft, bowel sounds present SKIN: no rashes EXTREMITIES: no edema, redness or tenderness DS: Data Data Completed and Pending Completed studies during hospitalization:
[2022-08-11 12:35] LABS: Glucose Point of Care 137 mg/dl (65-105)
--- NOTE | 2022-08-11 13:30 | PC.NURSE ---
On 08/11/22, the student, [Velma Vaz], provided care and completed [facility] documentation on this patient. I have reviewed the student's documentation and agree with the findings.
== END 2022-08-11 13:55 | disposition home or self-care (01) | DRG 331 ==
LOC: ANHED 22:42 → ANH2MED 08-03 02:39
PROVIDERS: Internal Medicine Critical Care Medicine; Internal Medicine Gastroenterology; Nurse Practitioner Family; Surgery; Admitting Provider Internal Medicine; Emergency Provider Emergency Medicine; PCP Family Medicine; Visit Provider Internal Medicine
PROC: 0DJ08ZZ Inspection of Upper Intestinal Tract, Via Natural or Artificial Opening Endoscopic (ICD-10-PCS; CPT 43235; principal; 2022-08-05 14:00)
PROC: 0DTF4ZZ Resection of Right Large Intestine, Percutaneous Endoscopic Approach (ICD-10-PCS; CPT 44204; principal; 2022-08-08 15:00)
DX: C18.2 Malignant neoplasm of ascending colon (principal); D50.9 Iron deficiency anemia, unspecified; G25.81 Restless legs syndrome; Z20.822 Contact with and (suspected) exposure to COVID-19; M19.90 Unspecified osteoarthritis, unspecified site; I10 Essential (primary) hypertension; I25.10 Atherosclerotic heart disease of native coronary artery without angina pectoris; F17.210 Nicotine dependence, cigarettes, uncomplicated; E66.9 Obesity, unspecified; M54.50 Low back pain, unspecified; M25.551 Pain in right hip; G89.29 Other chronic pain; Z68.34 Body mass index [BMI] 34.0-34.9, adult; I25.2 Old myocardial infarction; Z86.73 Personal history of transient ischemic attack (TIA), and cerebral infarction without residual deficits; Z79.82 Long term (current) use of aspirin; Z95.1 Presence of aortocoronary bypass graft; Z79.02 Long term (current) use of antithrombotics/antiplatelets
CPT/HCPCS: 36415; 36430; 71045; 80048; 80053; 80061; 82247; 82248; 82306; 82378; 82607; 82728; 82746; 82948; 83010; 83036; 83540; 83550; 83605; 83615; 83735; 84238; 84443; 84466; 84484; 85014; 85018; 85025; 85027; 85046; 85055; 85610; 85730; 86850; 86880; 86900; 86901; 86923; 87636; 88305; 88309; 93005; 99285; A9270; C9113; J0690; J1100; J1650; J1756; J1885; J2270; J2405; J2704; J2710; J3010; J7050; J7120; P9016

== ENCOUNTER 2022-09-08 15:59 | Outpatient (CLI) | payer MEDICARE, SELFPAY ==
[2022-09-08 16:15] LABS: Basophils Absolute Auto 0.1 K/mm3 (0.0-0.1); Basophils Percent Auto 0.9 % (0.2-1.2); Eosinophils Absolute Auto 0.1 K/mm3 (0-0.3); Hematocrit 32.8 % (37.0-47.0); Hemoglobin 10.5 g/dL (12.0-15.0); Immature Granulocyte Absolute 0.01 K/mm3 (0.00-0.031); Immature Granulocyte Percent A 0.2 % (0-0.5); Lymphocytes Absolute Auto 1.26 K/mm3 (0.9-3.2); Lymphocytes Percent Auto 22.5 % (18.3-44.2); Mean Corpuscular Hemoglobin 30.6 pg (26-34); Mean Corpuscular Volume 95.6 fl (80-100); Mean Platelet Volume 11.3 fl (7.4-10.4); Monocytes Absolute Auto 0.4 K/mm3 (0.1-0.6); Monocytes Percent Auto 7.9 % (2.6-8.5); Neutrophils Absolute Auto 3.7 K/mm3 (1.3-6.7); Neutrophils Percent Auto 66.5 % (45.5-73.1); Platelet Count Result 225 k/mm3 (150-375); Red Blood Count 3.43 M/mm3 (4.2-5.4); Red Cell Distribution Width 18.7 % (11.5-14.5); White Blood Count 5.6 K/mm3 (4.5-10.0)
[2022-09-08 16:44] LABS: Alanine Aminotransferase 17 U/L (6-35); Albumin Level 4.1 g/dL (3.5-5.1); Alkaline Phosphatase 74 U/L (38-126); Anion Gap 8 mmol/L (8-16); Aspartate Amino Transferase 30 U/L (14-36); Bilirubin,Total 0.5 mg/dL (0.2-1.3); Blood Urea Nitrogen 18 mg/dL (7-17); Calcium 9.5 mg/dL (8.4-10.2); Carbon Dioxide 27 mmol/L (22-30); Chloride 105 mmol/L (98-107); Estimated Glomerular Filt Rate 48; Glucose 94 mg/dL (65-110); Potassium 3.8 mmol/L (3.4-5.0); Sodium 140 mmol/L (137-145)
[2022-09-08 17:14] LABS: Carcinoembryonic Antigen 3.3 ng/mL (0.0-3.0)
[2022-09-08 17:35] LABS: Vitamin B12 > 1000.0 pg/mL (239-931)
[2022-09-08 17:54] LABS: Iron 81 ug/dL (37-170)
[2022-09-08 18:03] LABS: Percent Iron Saturation 25 % (20-50)
== END 2022-09-08 16:00 | disposition home or self-care (01) ==
LOC: ANHLAB 16:03
PROVIDERS: PCP Family Medicine; Visit Provider Internal Medicine Hematology & Oncology
DX: D64.9 Anemia, unspecified (principal); C18.0 Malignant neoplasm of cecum
CPT/HCPCS: 36415; 80053; 82378; 82607; 82728; 83540; 83550; 85025

== ENCOUNTER → 2022-09-12 14:10 | Outpatient (CLI) | payer MEDICARE, SELFPAY ==
--- NOTE | ~2022-09-12 | XR_ITS ---
EXAMINATION: XR foot LT min 3V DATE: 09/12/2022 14:32 INDICATION: Left foot pain. TECHNIQUE: 4 views of left foot were obtained. COMPARISON: None. FINDINGS: There is an oblique fracture of diaphysis of fifth metatarsal. The distal fracture fragment demonstrates 2 mm dorsomedial displacement and 3 mm shortening. There is mild osteoarthritis of firs t metatarsophalangeal joint and some of the interphalangeal joints and midfoot joints. There are enth esophytes at the posterior and plantar aspects of calcaneal tuberosity. IMPRESSION: 1. Oblique fracture of diaphysis of fifth metatarsal. Reviewed, dictated and finalized at location A. TY LOAN SPECIALIST
== END ==
PROVIDERS: PCP Family Medicine; Visit Provider Family Medicine
DX: S92.352A Displaced fracture of fifth metatarsal bone, left foot, initial encounter for closed fracture (principal); X58.XXXA Exposure to other specified factors, initial encounter
CPT/HCPCS: 73630

== ENCOUNTER 2022-09-20 09:26 | Outpatient (CLI) | payer MEDICARE, SELFPAY ==
--- NOTE | ~2022-09-20 | CT_ITS ---
CT Abdomen and Pelvis with contrast. History: Cecal cancer. Spiral CT of the abdomen and pelvis was performed after the administration of intravenous contrast. 1 00 cc of Omnipaque 350 was administered intravenously without complication. Dose reduction technique was used on this scan by utilizing automated exposure control and iterative reconstruction technique. The dose-length product (DLP) was 801.40 mGy-cm. COMPARISON: 01/22/2020 Findings: Scans through the lung bases demonstrate mild atelectatic change. Stable tiny hepatic cysts. The spleen, pancreas, gallbladder, adrenals and kidneys are within normal limits. No evidence of aortic aneurysm. No lymphadenopathy is seen. Patient is status post partial right colectomy. No bowel obstruction evident. No abnormal wall thicke maribel or mass lesion identified. Images through the pelvis were performed. Urinary bladder unremarkable. No adnexal mass present. No a scites. No ascites is seen. Impression: No evidence for active malignancy or metastatic disease. Status post partial right colectomy. Reviewed, dictated and finalized at [facility]. MER AND BORER MACHINE OPERATOR Impression: No evidence for active malignancy or metastatic disease. Status post partial right colectomy.
== END 2022-09-20 09:27 | disposition home or self-care (01) ==
LOC: ANHIMG 09:31
PROVIDERS: PCP Family Medicine; Visit Provider Internal Medicine Hematology & Oncology
DX: C18.0 Malignant neoplasm of cecum (principal)
CPT/HCPCS: 74177; Q9967

== ENCOUNTER 2022-10-31 15:12 | Outpatient (CLI) | payer MEDICARE, SELFPAY ==
[2022-10-31 18:57] LABS: Cholesterol 101 mg/dL (0-200); HDL Direct 34 mg/dL; Triglycerides 197 mg/dL (<150)
[2022-10-31 19:08] LABS: LDL Cholesterol Direct 38 mg/dL
[2022-10-31 19:36] LABS: Hematocrit 32.8 % (37.0-47.0); Hemoglobin 10.2 g/dL (12.0-15.0); Mean Corpuscular HGB Conc 31.1 g/dl (32-36); Mean Corpuscular Hemoglobin 32.9 pg (26-34); Mean Corpuscular Volume 105.8 fl (80-100); Mean Platelet Volume 12.2 fl (7.4-10.4); Platelet Count Result 269 k/mm3 (150-375); Red Cell Distribution Width 13.9 % (11.5-14.5); White Blood Count 5.6 K/mm3 (4.5-10.0)
== END 2022-10-31 15:13 | disposition home or self-care (01) ==
LOC: ANHGOSHLAB 15:13
PROVIDERS: PCP Family Medicine; Visit Provider Nurse Practitioner Family
DX: D50.9 Iron deficiency anemia, unspecified (principal); E78.5 Hyperlipidemia, unspecified
CPT/HCPCS: 36415; 80061; 82728; 84443; 85027

== ENCOUNTER 2022-12-19 13:54 | Outpatient (CLI) | payer MEDICARE, SELFPAY ==
[2022-12-19 14:47] LABS: Basophils Absolute Auto 0.1 K/mm3 (0.0-0.1); Basophils Percent Auto 1.3 % (0.2-1.2); Eosinophils Absolute Auto 0.1 K/mm3 (0-0.3); Eosinophils Percent Auto 2.8 % (0-4.4); Hematocrit 28.6 % (37.0-47.0); Hemoglobin 8.6 g/dL (12.0-15.0); Immature Granulocyte Absolute 0.01 K/mm3 (0.00-0.031); Immature Granulocyte Percent A 0.3 % (0-0.5); Lymphocytes Absolute Auto 1.26 K/mm3 (0.9-3.2); Lymphocytes Percent Auto 31.7 % (18.3-44.2); Mean Corpuscular HGB Conc 30.1 g/dl (32-36); Mean Corpuscular Hemoglobin 31.4 pg (26-34); Mean Corpuscular Volume 104.4 fl (80-100); Mean Platelet Volume 11.4 fl (7.4-10.4); Monocytes Absolute Auto 0.4 K/mm3 (0.1-0.6); Monocytes Percent Auto 9.8 % (2.6-8.5); Neutrophils Absolute Auto 2.2 K/mm3 (1.3-6.7); Neutrophils Percent Auto 54.1 % (45.5-73.1); Platelet Count Result 225 k/mm3 (150-375); Red Blood Count 2.74 M/mm3 (4.2-5.4); Red Cell Distribution Width 14.4 % (11.5-14.5)
[2022-12-19 16:34] LABS: Alanine Aminotransferase 16 U/L (6-35); Alkaline Phosphatase 81 U/L (38-126); Anion Gap 6 mmol/L (8-16); Aspartate Amino Transferase 17 U/L (14-36); Bilirubin,Total 0.4 mg/dL (0.2-1.3); Blood Urea Nitrogen 14 mg/dL (7-17); Carbon Dioxide 28 mmol/L (22-30); Chloride 104 mmol/L (98-107); Estimated Glomerular Filt Rate > 60; Glucose 80 mg/dL (65-110); Potassium 4.1 mmol/L (3.4-5.0); Sodium 138 mmol/L (137-145)
[2022-12-19 17:04] LABS: Carcinoembryonic Antigen 2.9 ng/mL (0.0-3.0)
== END 2022-12-19 13:55 | disposition home or self-care (01) ==
LOC: ANHLAB 13:56
PROVIDERS: PCP Family Medicine; Visit Provider Internal Medicine Hematology & Oncology
DX: C18.0 Malignant neoplasm of cecum (principal)
CPT/HCPCS: 36415; 80053; 82378; 85025

== ENCOUNTER 2022-12-26 14:56 | Outpatient (CLI) | payer MEDICARE, SELFPAY ==
[2022-12-26 17:03] LABS: Iron 166 ug/dL (37-170); Lactate Dehydrogenase 182 U/L (120-246)
[2022-12-26 17:19] LABS: Percent Iron Saturation 38 % (20-50)
[2022-12-26 18:13] LABS: Folic Acid > 20.0 ng/mL (2.76->20)
[2022-12-29 19:00] LABS: Methylmalonic Acid 85 nmol/L (87-318)
== END 2022-12-26 14:57 | disposition home or self-care (01) ==
LOC: ANHLAB 15:00
PROVIDERS: PCP Family Medicine; Visit Provider Internal Medicine Hematology & Oncology
DX: D64.9 Anemia, unspecified (principal)
CPT/HCPCS: 36415; 82607; 82728; 82746; 83540; 83550; 83615; 83921; 84443

== ENCOUNTER 2023-01-26 00:53 | Day surgery (SDC) | payer MEDICARE, SELFPAY ==
[2023-01-25 17:09] VITALS: BMI 30.1
--- NOTE | ~2023-01-26 | BM_ITS ---
EXAMINATION: CCL bone marrow asp w bx diag ORDER COMPLETED DATE: 01/26/2023 14:30 INDICATION: Chronic anemia TECHNIQUE: A time-out was performed to verify the patient's name, date of , and procedure to b e performed. The procedure including the risks, benefits, and alternatives was discussed with the pat ient. Risks discussed included bleeding and infection. The patient understood the risks and agreed to proceed. The skin overlying the right posterior iliac spine was prepped and draped in usual sterile fashion. Anesthetic was administered with 1% lidocaine subcutaneously. Systemic analgesia was provide d with 50 mcg fentanyl IV. An 11 gauge needle was inserted into the ilium with fluoroscopic guidance. Bone marrow was aspirated. An 8 gauge needle was then inserted into the ilium with fluoroscopic guid ance. A core bone marrow biopsy was obtained. There were no immediate complications. Fluoroscopy expo sure time was 0.1 minutes. The total number of images was 1. FINDINGS: Real-time fluoroscopy demonstrates a marker overlying the right posterior iliac spine. IMPRESSION: 1. Successful fluoro-guided bone marrow aspiration. 2. Successful fluoro-guided bone marrow core biopsy. Reviewed, dictated and finalized at location A.
[2023-01-26 07:44] VITALS: BP 138/48; PULSE 56; RESP 15; TEMP 36.6; O2SAT 95; BMI 30.7
--- NOTE | 2023-01-26 07:55 | SUR.PREOP ---
WHEN PUT ON RESEARCH LABORATORY TECHNICIAN TO OBTAIN VS, NOTED CARDIAC RHYTHM TO BE AFLUTTER 50'S. BOTH PT. AND DAUGHTER DENY HX OF PT. HAVING HAD AFLUTTER PRIOR. PT. DENIES CP OR SOB. SEE MONITOR STRIP ON CHART.
[2023-01-26 07:59] LABS: Basophils Absolute Auto 0.1 K/mm3 (0.0-0.1); Basophils Percent Auto 1.3 % (0.2-1.2); Eosinophils Absolute Auto 0.2 K/mm3 (0-0.3); Eosinophils Percent Auto 3.8 % (0-4.4); Hematocrit 31.9 % (37.0-47.0); Hemoglobin 9.6 g/dL (12.0-15.0); Immature Granulocyte Absolute 0.02 K/mm3 (0.00-0.031); Immature Granulocyte Percent A 0.4 % (0-0.5); Lymphocytes Absolute Auto 1.45 K/mm3 (0.9-3.2); Lymphocytes Percent Auto 30.9 % (18.3-44.2); Mean Corpuscular HGB Conc 30.1 g/dl (32-36); Mean Corpuscular Hemoglobin 31.3 pg (26-34); Mean Corpuscular Volume 103.9 fl (80-100); Mean Platelet Volume 11.2 fl (7.4-10.4); Monocytes Absolute Auto 0.5 K/mm3 (0.1-0.6); Neutrophils Absolute Auto 2.5 K/mm3 (1.3-6.7); Neutrophils Percent Auto 53.6 % (45.5-73.1); Platelet Count Result 215 k/mm3 (150-375); Red Blood Count 3.07 M/mm3 (4.2-5.4); Red Cell Distribution Width 14.3 % (11.5-14.5); White Blood Count 4.7 K/mm3 (4.5-10.0)
[2023-01-26 08:08] LABS: INR 1.1; Prothrombin Time 14.5 Seconds (11.1-14.7)
--- NOTE | 2023-01-26 08:32 | SUR.PREOP ---
REMAINS AFLUTTER ON MONITOR. AFTER DISCUSSING WITH PT. AND DAUGHTER AND OBTAINING PERMISSION, THIS RN WILL NOTIFY PT'S PRIMARY MD, DR. MOREJON, AND PT'S CARDIOLOGY TEAM, DR. PEREIRA'S FRONT LOADER RESIDENTIAL DRIVER, RICO DOAN NP OF PT'S NEW AFLUTTER. PT. DENIES PALPITATIONS. MESSAGE LEFT WITH RICO DOAN NP AND NOTIFIED DR. MOREJON AT HIS OFFICE OF AFLUTTER FINDING AND MONITOR STRIP.
--- NOTE | 2023-01-26 08:55 | ECG_ITS ---
Measurements Intervals [place] Rate: 54 P: 266 NC: 143 QRS: -4 QRSD: 113 T: 120 QT: 261 QTc: 249 Interpretive Statements ATRIAL FLUTTER WITH SLOW VENTRICULAR RESPONSE NONSPECIFIC ST & T-WAVE ABNORMALITY- ANTEROLAT/HIGH LAT LEADS BASELINE ARTIFACT- I, II, III, V1 ABNORMAL ECG COMPARED TO ECG 08/02/2022 21:59:40 ATRIAL FLUTTER NOW PRESENT Electronically Signed On 01-26-2023 9:33:03 CDT by Mian De D.O.
--- NOTE | 2023-01-26 08:55 | SUR.PREOP ---
CARDIOLOGY PSYCHIATRIC TECHNICIAN ASSISTANT, RICO DOAN PSYCHIATRIC TECHNICIAN ASSISTANT, NOW NOTIFIED OF PT'S NEW AFLUTTER 50'S. PT. IS HERE FOR BONE MARROW BX ORDERED BY DR. STAHL AND TO BE PERFORMED BY DR. LIN. DR. LIN NOTIFIED OF NEW FINDING OF AFLUTTER UPON PT'S ARRIVAL THIS AM FOR BONE MARROW BX PROCEDURE. GET EKG ORDER RECEIVED BY DR. LIN. EKG OBTAINED. PT. DENIES ANY SYMPTOMS. OK TO PROCEED WITH BONE MARROW BX PER RICO DOAN NP.
--- NOTE | 2023-01-26 09:10 | WPDMODSED ---
Moderate Sedation Note-Pt Data Patient Data Diagnosis: chronic anemia Present Complaint: none Procedure to be performed/Plan: bone marrow biopsy Allergies Allergy/AdvReac Type Severity Reaction Status Date / Time No Known Allergies Allergy Verified 01/26/23 07:42 Home Medications Medication Instructions Recorded Confirmed Type amlodipine 5 mg tablet 5 mg PO DAILY 09/21/19 01/25/23 History aspirin 81 mg chewable tablet 81 mg PO DAILY 09/21/19 01/19/23 History folic acid 400 mcg tablet 0.4 mg PO BID 09/21/19 01/25/23 History metoprolol tartrate 25 mg tablet 12.5 mg PO BID 09/21/19 01/25/23 History omega-3 fatty acids-fish oil 340 1 cap PO DAILY 09/21/19 01/25/23 History mg-1,000 mg capsule nitroglycerin 0.4 mg sublingual 0.4 mg sublingual DIRECTED PRN 09/24/19 01/19/23 Rx tablet chest pain #25 tabs pantoprazole 40 mg tablet,delayed 40 mg PO DAILY #30 tabs 09/24/19 01/25/23 Rx release atorvastatin 40 mg tablet 40 mg PO QHS 07/01/21 01/25/23 History lisinopril 10 mg tablet 10 mg PO DAILY #90 tabs 08/26/22 01/25/23 Rx clopidogrel 75 mg tablet 75 mg PO QAM #90 tabs 10/17/22 01/19/23 Rx cholecalciferol (vitamin D3) 50 50 mcg PO DAILY #90 caps 11/28/22 01/25/23 Rx mcg (2,000 unit) capsule ferrous sulfate 325 mg (65 mg 325 mg PO DAILY #90 tabs 11/29/22 01/25/23 Rx iron) tablet mecobalamin (vitamin B12) 1,000 1,000 mcg sublingual DAILY #90 tabs 11/29/22 01/25/23 Rx mcg disintegrating tablet,sublingual tramadol 50 mg tablet 50 mg PO Q8H PRN pain #90 tabs 01/13/23 01/19/23 Rx acetaminophen 650 mg tablet 1,300 mg PO BID PRN Pain 01/19/23 01/25/23 History bupropion HCl 150 mg tablet,12 hr 100 mg PO DAILY 01/19/23 01/25/23 History sustained-release gabapentin 300 mg capsule 300 mg PO BID 01/19/23 01/25/23 History paroxetine HCl 20 mg tablet 20 mg PO BID 01/19/23 01/25/23 History Sedation/Anesthesia: No previous sedation/anesthesia problems (including family history). [facility] Past Medical History Medical History Acute cerebrovascular accident (CVA) 03/2021 Anxiety Arthritis B12 deficiency Chronic low back pain Coronary artery disease Depression Heart attack History of stroke 03/2021 HLD (hyperlipidemia) HTN (hypertension) Middle cerebral artery aneurysm Non-STEMI (non-ST elevated myocardial infarction) September 2019 with left heart catheterization demonstrating modest left main disease, total occlusion of LAD and right coronary artery proximally, modest 40-50% stenosis of the 1st obtuse marginal branch of the circumflex, remaining patency of GARCIA to LAD, patency of saphenous vein graft to RCA, occlusion of the proximal aspect of the vein graft to the 1st obtuse marginal branch circumflex, mild left ventricular systolic dysfunction with posterior basal akinesis with good ejection fraction with medical therapy recommended. Restless legs syndrome Synostosis (cranial) Tobacco use Surgical History Surgical History H/O cataract extraction History of bladder suspension procedure (~2006) History of carpal tunnel surgery Left wrist History of carpal tunnel surgery of left wrist (~2008) History of facial surgery Tongue surgery left face due to benign tumor - History of lumbosacral spine surgery 06/2020 History of lumpectomy of left breast (~1990) Hx of colectomy Hand access laparoscopic right colectomy on 08/08/22 S/P CABG x 3 2007 GARCIA to left anterior descending, vein graft to PDA and to the obtuse marginal S/P cubital tunnel release Left - 2008 Family History Family History Father Heart disease of heart disease Coronary artery disease Mother Heart disease of heart disease Coronary artery disease Sibling Heart disease 2 brothers have had CAD and stents Coronary artery disease Social History Social History (Reviewed 10/31/22 @ 14:
[2023-01-26 09:45] VITALS: BP 173/71; PULSE 63; RESP 16; O2SAT 93
[2023-01-26 10:00] VITALS: BP 145/110; BP 156/64; PULSE 62; PULSE 77; RESP 16; RESP 17; O2SAT 95
[2023-01-26 10:15] VITALS: BP 165/66; PULSE 63; RESP 18; O2SAT 95
--- NOTE | 2023-01-26 10:15 | SUR.PHASEII ---
NOW POST BONE MARROW BX. DR. PEREIRA'S WIRE TWISTING MACHINE OPERATOR, RICO DOAN WIRE TWISTING MACHINE OPERATOR, HERE TO SEE EKG AND PATIENT. SPOKE TO PT. AND DAUGHTER BEDSIDE. CARDIOLOGY WOULD LIKE TO START XARELTO 20MG PO DAILY SOON OK POST BONE MARROW BX. CONSULTED WITH DR. LIN, BX PERFORMING RADIOLOGIST; OK TO RESUME BLOOD THINNERS AND ASPIRIN TOMORROW, 01/27/23. PER CARDIOLOGY, PT. TO DISCONTINUE PLAVIX; BEGIN TAKING XARELTO AND ASPIRIN PO DAILY TOMORROW. CARDIOLOGY WILL PROVIDE PT. WITH XARELTO PRESCRIPTION SEPARATELY OF TODAY'S DISCHARGE ORDERS FOR BONE MARROW BIOPSY. RICO DOAN WIRE TWISTING MACHINE OPERATOR GIVEN COPIES OF EKG AND MONITOR STRIPS FOR DR. PEREIRA'S OFFICE. PT. AND HER DAUGHTER ARE AGREEABLE WITH PLAN.
== END 2023-01-26 10:45 | disposition home or self-care (01) ==
PROVIDERS: Radiology Diagnostic Radiology; PCP Family Medicine; Referring Provider Internal Medicine Hematology & Oncology; Visit Provider Radiology Diagnostic Radiology
DX: D53.9 Nutritional anemia, unspecified (principal)
CPT/HCPCS: 36415; 38222; 85025; 85610; 88184; 88185; 88305; 88311; 88313; 88341; 88342; 93005; J1642; J2250; J3010; J7040

== ENCOUNTER 2023-02-25 19:49 | Emergency (ER) | payer MEDICARE, SELFPAY ==
--- NOTE | ~2023-02-25 | CT_ITS ---
Non-contrast Head CT History: Head injury COMPARISON: 07/05/2022 Technique: Axial non-contrast imaging of the brain was performed. Dose reduction technique was used on this scan by utilizing automated exposure control and iterative reconstruction technique. The dose -length product (DLP) was 605.33 mGy-cm. Findings: There is no evidence of intracranial hemorrhage, mass lesion, or acute infarct. Chronic la cunar infarcts are noted in the right basal ganglia and right periventricular white matter, unchanged .. The ventricles and subarachnoid spaces are normal in size. The calvarium appears normal. The vi sualized paranasal sinuses and mastoid air cells are clear. Impression: No acute abnormality seen. Stable chronic lacunar infarcts in right basal ganglia and right periventricular white matter. Reviewed, dictated and finalized at [facility]. Impression: No acute abnormality seen. Stable chronic lacunar infarcts in right basal ganglia and right periventricula r white matter.
[2023-02-25 19:52] VITALS: BP 139/55; PULSE 69; RESP 16; TEMP 36.2; O2SAT 97
--- NOTE | 2023-02-25 20:03 | PC.NURSE ---
Patient taken to CT via w/c.
--- NOTE | 2023-02-25 20:14 | ED.FALL ---
HPI - Fall General Chief Complaint: Fall Stated Complaint: fall Time Seen by Provider: 02/25/23 19:56 History of Present Illness HPI Narrative: 78-year-old female presented to the emergency department for evaluation of a sore spot on her posterior right scalp. Patient reports that on she rolled out of bed and struck her arm and head. Patient denies any loss consciousness. Patient states she had a normal day Monday was able to swallow pool and had no pain or complaints. Patient states that her daughter found out that she had a head injury and told her to present to the emergency department for evaluation or to call 911. Today patient did notice that she had a small sore spot on the right posterior scalp that she described as mushy . Patient denies any headache, nausea vomiting or altered mental status. Patient also knows that she did have some bruising on her right upper arm but denies any pain. Patient is on the Xarelto for atrial fibrillation. Related Data Home Medications Medication Instructions Recorded Confirmed amlodipine 5 mg tablet 5 mg PO DAILY 09/21/19 01/25/23 aspirin 81 mg chewable tablet 81 mg PO DAILY 09/21/19 01/19/23 folic acid 400 mcg tablet 0.4 mg PO BID 09/21/19 01/25/23 metoprolol tartrate 25 mg tablet 12.5 mg PO BID 09/21/19 01/25/23 omega-3 fatty acids-fish oil 340 1 cap PO DAILY 09/21/19 01/25/23 mg-1,000 mg capsule atorvastatin 40 mg tablet 40 mg PO QHS 07/01/21 01/25/23 acetaminophen 650 mg tablet 1,300 mg PO BID PRN Pain 01/19/23 01/25/23 gabapentin 300 mg capsule 300 mg PO BID 01/19/23 01/25/23 paroxetine HCl 20 mg tablet 20 mg PO BID 01/19/23 01/25/23 Allergies Allergy/AdvReac Type Severity Reaction Status Date / Time No Known Allergies Allergy Verified 02/25/23 19:50 Review of Systems Review of Systems: All systems reviewed & are unremarkable except as noted in HPI and below PMFSH Past Medical History Medical History Acute cerebrovascular accident (CVA) 03/2021 Anxiety Arthritis B12 deficiency Chronic low back pain Coronary artery disease Depression Heart attack History of stroke 03/2021 HLD (hyperlipidemia) HTN (hypertension) Middle cerebral artery aneurysm Non-STEMI (non-ST elevated myocardial infarction) September 2019 with left heart catheterization demonstrating modest left main disease, total occlusion of LAD and right coronary artery proximally, modest 40-50% stenosis of the 1st obtuse marginal branch of the circumflex, remaining patency of GARCIA to LAD, patency of saphenous vein graft to RCA, occlusion of the proximal aspect of the vein graft to the 1st obtuse marginal branch circumflex, mild left ventricular systolic dysfunction with posterior basal akinesis with good ejection fraction with medical therapy recommended. Restless legs syndrome Synostosis (cranial) Tobacco use Surgical History Surgical History H/O cataract extraction History of bladder suspension procedure (~2006) History of carpal tunnel surgery Left wrist History of carpal tunnel surgery of left wrist (~2008) History of facial surgery Tongue surgery left face due to benign tumor - History of lumbosacral spine surgery 06/2020 History of lumpectomy of left breast (~1990) Hx of colectomy Hand access laparoscopic right colectomy on 08/08/22 S/P CABG x 3 2007 GARCIA to left anterior descending, vein graft to PDA and to the obtuse marginal S/P cubital tunnel release Left - 2008 Family History Family History Father Heart disease of heart disease Coronary artery disease Mother Heart disease of heart disease Coronary artery disease Sibling Heart disease 2 brothers have had CAD and stents Coronary artery disease Social History Social History Social History: The patient lives in her own
== END 2023-02-25 21:15 | disposition home or self-care (01) ==
PROVIDERS: Emergency Provider Emergency Medicine; PCP Family Medicine
DX: S00.03XA Contusion of scalp, initial encounter (principal); I48.91 Unspecified atrial fibrillation; I25.10 Atherosclerotic heart disease of native coronary artery without angina pectoris; I25.2 Old myocardial infarction; I10 Essential (primary) hypertension; E78.5 Hyperlipidemia, unspecified; M19.90 Unspecified osteoarthritis, unspecified site; G25.81 Restless legs syndrome; F17.210 Nicotine dependence, cigarettes, uncomplicated; Z95.1 Presence of aortocoronary bypass graft; Z86.73 Personal history of transient ischemic attack (TIA), and cerebral infarction without residual deficits; Z98.49 Cataract extraction status, unspecified eye; Z90.49 Acquired absence of other specified parts of digestive tract; Z79.01 Long term (current) use of anticoagulants; Z79.82 Long term (current) use of aspirin; W06.XXXA Fall from bed, initial encounter
CPT/HCPCS: 70450; 99284

== ENCOUNTER 2023-05-01 13:44 | Outpatient (CLI) | payer MEDICARE, SELFPAY ==
[2023-05-01 18:56] LABS: Basophils Percent Auto 0.8 % (0.2-1.2); Eosinophils Absolute Auto 0.1 K/mm3 (0-0.3); Eosinophils Percent Auto 3.8 % (0-4.4); Hematocrit 21.2 % (37.0-47.0); Lymphocytes Absolute Auto 0.74 K/mm3 (0.9-3.2); Lymphocytes Percent Auto 20.3 % (18.3-44.2); Mean Corpuscular HGB Conc 26.4 g/dl (32-36); Mean Corpuscular Hemoglobin 30.6 pg (26-34); Mean Corpuscular Volume 115.8 fl (80-100); Monocytes Absolute Auto 0.3 K/mm3 (0.1-0.6); Monocytes Percent Auto 9.1 % (2.6-8.5); Neutrophils Absolute Auto 2.4 K/mm3 (1.3-6.7); Nucleated Red Blood Cells Perc 0.5 % (0.0-0.2); Red Blood Count 1.83 M/mm3 (4.2-5.4); Red Cell Distribution Width 15.9 % (11.5-14.5); White Blood Count 3.6 K/mm3 (4.5-10.0)
[2023-05-01 19:22] LABS: Alanine Aminotransferase 14 U/L (6-35); Albumin Level 3.2 g/dL (3.5-5.1); Alkaline Phosphatase 71 U/L (38-126); Anion Gap 5 mmol/L (8-16); Aspartate Amino Transferase 33 U/L (14-36); Bilirubin,Total 0.5 mg/dL (0.2-1.3); Blood Urea Nitrogen 11 mg/dL (7-17); Calcium 8.8 mg/dL (8.4-10.2); Carbon Dioxide 29 mmol/L (22-30); Chloride 105 mmol/L (98-107); Estimated Glomerular Filt Rate > 60; Glucose 74 mg/dL (65-110); Potassium 3.6 mmol/L (3.4-5.0); Sodium 139 mmol/L (137-145)
[2023-05-01 19:30] LABS: NT Pro B Type Natriuretic Pept 1050 pg/mL (19.9-100)
[2023-05-01 20:26] LABS: Hemoglobin 5.6 g/dL (12.0-15.0)
[2023-05-01 20:33] LABS: Platelet Estimate Adequate (Adequate); Schistocytes None Seen (NORMAL)
[2023-05-01 20:34] LABS: Anisocytosis 2+ (NORMAL); Hypochromasia 1+ (NORMAL)
[2023-05-04 23:59] LABS: Vitamin D 1,25 (OH)2 Total 41 pg/mL (18-72); Vitamin D2 1,25 (OH)2 <8 pg/mL; Vitamin D3 1,25 (OH)2 41 pg/mL
== END 2023-05-01 13:45 | disposition home or self-care (01) ==
LOC: ANHGOSHLAB 13:49
PROVIDERS: PCP Family Medicine; Visit Provider Nurse Practitioner Family
DX: E55.9 Vitamin D deficiency, unspecified (principal); I10 Essential (primary) hypertension; R06.02 Shortness of breath; R60.0 Localized edema
CPT/HCPCS: 36415; 80053; 82652; 83880; 85025

== ENCOUNTER 2023-05-01 13:58 | Outpatient (CLI) | payer MEDICARE, SELFPAY ==
--- NOTE | ~2023-05-01 | XR_ITS ---
XR chest 2V DATE: 05/01/2023 14:09 INDICATION: Shortness of breath TECHNIQUE: 2 views COMPARISON: 08/02/2022 portable AP chest FINDINGS: Status post sternotomy. Cardiomegaly. Aortic unfolding. No hilar or mediastinal mass lesion or lymphadenopathy, pulmonary vascular congestion, pleural effusi on or pneumothorax is evident. No pulmonary infiltrate or consolidation. Osteopenia. IMPRESSION: Cardiomegaly Status post sternotomy No active pulmonary disease Reviewed, dictated and finalized at location B.
== END 2023-05-01 13:59 ==
PROVIDERS: PCP Family Medicine; Visit Provider Nurse Practitioner Family
DX: R06.02 Shortness of breath (principal); I51.7 Cardiomegaly
CPT/HCPCS: 71046

== ENCOUNTER 2023-05-01 21:02 | Observation (INO) | payer MEDICARE, SELFPAY ==
--- NOTE | ~2023-05-01 | CT_ITS ---
CT of the Abdomen and Pelvis: Indication: GI bleed Technique: 2.5 mm axial scans were obtained through the abdomen and pelvis following intravenous adm inistration of 100 cc of Omnipaque 350. Dose reduction technique was used on this scan by utilizing a utomated exposure control and iterative reconstruction technique. The dose-length product (DLP) was 1 057.39 mGy-cm. COMPARISON: 09/20/2022 Findings: Scans through the lung bases are unremarkable. The liver, spleen, pancreas, gallbladder, adrenals and kidneys are within normal limits. There are at herosclerotic calcifications of the aorta. No lymphadenopathy. No bowel obstruction or bowel wall thickening. There is no evidence to suggest acute appendicitis. Ev idence of prior partial right colectomy. Images through the pelvis were performed. Urinary bladder unremarkable. No pelvic mass seen. No ascit es. Impression: No significant abnormalities seen. Reviewed, dictated and finalized at [facility]. Impression: No significant abnormalities seen.
[2023-05-01 21:08] VITALS: BP 124/85; PULSE 64; RESP 14; TEMP 36.6; O2SAT 100
[2023-05-01 21:17] VITALS: BP 154/57; PULSE 70; RESP 14; O2SAT 97
[2023-05-01 22:18] VITALS: BP 144/54; PULSE 76; RESP 19; O2SAT 99
[2023-05-01 22:23] LABS: Basophils Percent Auto 0.4 % (0.2-1.2); Eosinophils Absolute Auto 0.1 K/mm3 (0-0.3); Eosinophils Percent Auto 3.1 % (0-4.4); Immature Granulocyte Absolute 0.01 K/mm3 (0.00-0.031); Immature Granulocyte Percent A 0.2 % (0-0.5); Lymphocytes Absolute Auto 1.12 K/mm3 (0.9-3.2); Lymphocytes Percent Auto 24.8 % (18.3-44.2); Mean Corpuscular HGB Conc 26.3 g/dl (32-36); Mean Corpuscular Hemoglobin 30.9 pg (26-34); Mean Corpuscular Volume 117.1 fl (80-100); Monocytes Absolute Auto 0.4 K/mm3 (0.1-0.6); Monocytes Percent Auto 9.3 % (2.6-8.5); Neutrophils Absolute Auto 2.8 K/mm3 (1.3-6.7); Neutrophils Percent Auto 62.2 % (45.5-73.1); Nucleated Red Blood Cells Perc 0.4 % (0.0-0.2); Platelet Count Result 259 k/mm3 (150-375); Red Blood Count 1.75 M/mm3 (4.2-5.4); Red Cell Distribution Width 16.1 % (11.5-14.5); White Blood Count 4.5 K/mm3 (4.5-10.0)
[2023-05-01 22:27] LABS: Hematocrit 20.5 % (37.0-47.0); Hemoglobin 5.4 g/dL (12.0-15.0)
[2023-05-01 22:33] LABS: Magnesium 1.9 mg/dL (1.6-2.3)
[2023-05-01 23:01] LABS: Alanine Aminotransferase 14 U/L (6-35); Albumin Level 3.1 g/dL (3.5-5.1); Alkaline Phosphatase 72 U/L (38-126); Anion Gap 7 mmol/L (8-16); Aspartate Amino Transferase 20 U/L (14-36); Bilirubin,Total 0.5 mg/dL (0.2-1.3); Blood Urea Nitrogen 12 mg/dL (7-17); Calcium 8.6 mg/dL (8.4-10.2); Carbon Dioxide 25 mmol/L (22-30); Chloride 106 mmol/L (98-107); Estimated CRCL calculation 67 ml/min; Estimated Glomerular Filt Rate > 60; Glucose 101 mg/dL (65-110); Potassium 3.6 mmol/L (3.4-5.0); Sodium 138 mmol/L (137-145)
[2023-05-01 23:03] LABS: INR 2.1; Prothrombin Time 24.9 Seconds (11.1-14.7)
[2023-05-01 23:05] LABS: Partial Thromboplastin Time 38.4 SECONDS (22.3-36.8)
--- NOTE | 2023-05-01 23:07 | ECG_ITS ---
Measurements Intervals [place] Rate: 57 P: [place]: 0 QRS: -5 QRSD: 111 T: 240 QT: 258 QTc: 251 Interpretive Statements ATRIAL FLUTTER/TACHYCARDIA WITH SLOW VENTRICULAR RESPONSE NONSPECIFIC T-WAVE ABNORMALITY ABNORMAL ECG COMPARED TO ECG 01/26/2023 09:00:52 NO SIGNIFICANT DIFFERENCE Electronically Signed On 05-02-2023 12:03:31 CDT by Derrick Bird M.D.
[2023-05-01 23:10] VITALS: BP 144/51; PULSE 67; RESP 16; O2SAT 95
[2023-05-01 23:14] LABS: Anisocytosis 1+ (NORMAL); Hypochromasia 2+ (NORMAL); Ovalocytes 1+ (NORMAL); Platelet Estimate Adequate (Adequate); Schistocytes None Seen (NORMAL)
[2023-05-01 23:43] LABS: Appearance Urine Cloudy (Clear); Bacteria Urine Rare /hpf; Bilirubin Urine Negative (Negative); Blood Urine Trace (Negative); Color Urine Yellow (Yellow); Glucose Urine UA Negative (Negative); Ketones Urine Negative (Negative); Leukocyte Esterase Ur Negative LEU/UL (Negative); Nitrate Urine Negative (Negative); Non Pathogenic Casts 0-2; Protein Urine Negative (Negative); RBC Urine 0-2 /hpf (0-2); Specific Grav Ur 1.014 (1.001-1.035); Squamous Epithelial Cell Urine Moderate /hpf (Few); WBC Urine 0-5 /hpf
[2023-05-01 23:50] LABS: Add Urine Microscopic? YES
[2023-05-02] VITALS (24 sets, daily range): BP systolic 135–169; BP diastolic 46–70; PULSE 59–76; RESP 12–20; TEMP 36.4–36.8; O2SAT 85–100; BMI 29.9
[2023-05-02] MEDS: SODIUM CHLORIDE 0.9% IV 250 ML 30 ML IV CONT (00:28)
[2023-05-02] MEDS: TUBING, BLOOD PLUM PUMP TUBING 1 EACH XX ×2 (00:28→04:26)
--- NOTE | 2023-05-02 00:39 | ED.GENADULT ---
HPI - General Adult General Chief complaint: Recheck/Abnormal Lab/Rx Stated complaint: Anemia Time Seen by Provider: 05/01/23 22:09 History of Present Illness HPI narrative: Patient 78-year-old female who presents the emergency department with chief complaint of acute anemia. The patient reports that she has prior history of anemia that was found to have a cancerous polyp and had a bowel resection. Patient reports that she has been feeling weaker over the last several days has felt lightheaded and the family is noticed that she has been rather pale. The patient reports that she saw her primary care doctor today in the office they did outpatient blood work and found her hemoglobin to have dropped down to 5.6. The patient was 9.6 and January. The patient is currently on Xarelto reports no bright red blood per rectum no black tarry stools or melanotic stools. Related Data Home Medications Medication Instructions Recorded Confirmed amlodipine 5 mg tablet 5 mg PO DAILY 09/21/19 05/01/23 aspirin 81 mg chewable tablet 81 mg PO DAILY 09/21/19 05/01/23 folic acid 400 mcg tablet 0.4 mg PO BID 09/21/19 05/01/23 metoprolol tartrate 25 mg tablet 12.5 mg PO BID 09/21/19 05/01/23 omega-3 fatty acids-fish oil 340 1 cap PO DAILY 09/21/19 05/01/23 mg-1,000 mg capsule atorvastatin 40 mg tablet 40 mg PO QHS 07/01/21 05/01/23 acetaminophen 650 mg tablet 1,300 mg PO BID PRN Pain 01/19/23 05/01/23 gabapentin 300 mg capsule 300 mg PO BID 01/19/23 05/01/23 rivaroxaban 20 mg tablet (Xarelto) 20 mg PO DAILY 03/01/23 05/01/23 Allergies Allergy/AdvReac Type Severity Reaction Status Date / Time No Known Allergies Allergy Verified 03/08/23 14:04 Review of Systems Review of Systems: A 10 system review of systems was completed on the patient and is negative except for what is stated in the HPI. Nursing and ancillary documentation was reviewed. [facility] Past Medical History Medical History Acute cerebrovascular accident (CVA) 03/2021 Anxiety Arthritis B12 deficiency Chronic low back pain Coronary artery disease Depression Heart attack History of stroke 03/2021 HLD (hyperlipidemia) HTN (hypertension) Middle cerebral artery aneurysm Non-STEMI (non-ST elevated myocardial infarction) September 2019 with left heart catheterization demonstrating modest left main disease, total occlusion of LAD and right coronary artery proximally, modest 40-50% stenosis of the 1st obtuse marginal branch of the circumflex, remaining patency of GARCIA to LAD, patency of saphenous vein graft to RCA, occlusion of the proximal aspect of the vein graft to the 1st obtuse marginal branch circumflex, mild left ventricular systolic dysfunction with posterior basal akinesis with good ejection fraction with medical therapy recommended. Restless legs syndrome Synostosis (cranial) Tobacco use Surgical History Surgical History H/O cataract extraction History of bladder suspension procedure (~2006) History of carpal tunnel surgery Left wrist History of carpal tunnel surgery of left wrist (~2008) History of facial surgery Tongue surgery left face due to benign tumor - History of lumbosacral spine surgery 06/2020 History of lumpectomy of left breast (~1990) Hx of colectomy Hand access laparoscopic right colectomy on 08/08/22 S/P CABG x 3 2007 GARCIA to left anterior descending, vein graft to PDA and to the obtuse marginal S/P cubital tunnel release Left - 2008 Family History Family History Father Heart disease of heart disease Coronary artery disease Mother Heart disease of heart disease Coronary artery disease Sibling Heart disease 2 brothers have had CAD and stents Coronary artery disease Social History Social History Social History: T
[2023-05-02 03:34] LABS: Hematocrit 23.3 % (37.0-47.0)
[2023-05-02 03:48] LABS: Hemoglobin 6.5 g/dL (12.0-15.0)
[2023-05-02] MEDS: GABAPENTIN 300 MG CAPSULE PO ×3 (04:40→22:22)
[2023-05-02] MEDS: traMADol HCL (*CRX) 50 MG TABLET PO ×2 (04:41→22:22)
[2023-05-02] MEDS: ATORVASTATIN 40 MG TABLET PO ×2 (04:41→20:52)
[2023-05-02] MEDS: PANTOPRAZOLE SODIUM IV 40 MG VIAL IV PUSH (09:24)
[2023-05-02 09:38] LABS: Hematocrit 27.8 % (37.0-47.0)
--- NOTE | 2023-05-02 12:38 | WPDGICN ---
Assessment and Plan Assessment and plan (1) Acute on chronic blood loss anemia: Code(s): D62 - Acute posthemorrhagic anemia Status: Resolved Assessment and Plan: recently on xarelto had egd de 2011 that was normal, colonoscopy found rt colon cancer- rt hemicolectomy she is also seeing hematology- will ask to evaluate will proceed with colonoscopy- also FOBT + (2) Cancer of right colon: Code(s): C18.2 - Malignant neoplasm of ascending colon Status: Acute Assessment and Plan: colonoscopy tomorrow patient would like to drink small volume bowel prep (will give clenpiq) (3) Antiplatelet or antithrombotic long-term use: Code(s): Z79.02 - [facility] (current) use of antithrombotics/antiplatelets Status: Chronic Assessment and Plan: probably contributing to worsening anemia on hold for now (4) Coronary artery disease: Qualifiers: Associated angina: without angina Coronary Disease-Associated Artery/Lesion type: bypass graft [place] vs. transplanted heart: [place] heart Qualified Code(s): I25.810 - Atherosclerosis of coronary artery bypass graft(s) without angina pectoris Code(s): I25.10 - Atherosclerotic heart disease of [place] coronary artery without angina pectoris Status: Chronic (5) Occult blood in stools: Code(s): R19.5 - Other fecal abnormalities Status: Acute Assessment and Plan: colonoscopy GI Consult Note Consult date/time: 05/02/23 12:38 Reason for consult: acute blood loss anemia HPI: Yvonne Cunningham is a 78 year old female with history of hypertension, dyslipidemia, coronary artery disease status post CABG, history of stroke(03/2021), atrial fibrillation started on xarelto 1 month ago, cerebral artery aneurysm, vitamin B12 deficiency, ascending colon cancer after she had egd/colonoscopy 08/[address] Sharma (EGD normal, colonoscopy malignancy- underwent surgery by Dr Guy, negative margin and lymph nodes, T3 (invading muscularis propia into pericolorectal tissues). She went to see her pcp yesterday because increased shortness of breath on exertion, fatigue, lower extremity swelling and eating ice lately (similarly when presented with sima in the past), blood work hgb 5.5 and was advised to come to ER, given blood transfusion and admitted to hospital. 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 BUN and creat normal, inr 2.1 Review of Systems Constitutional: Constitutional: Reports fatigue and Reports lethargy Eyes: Eyes: Denies blurry vision ENT: Reports Normal hearing present Cardiovascular: Cardiovascular: Reports lightheadedness Respiratory: Respiratory: Denies cough Gastrointestinal: Gastrointestinal: Denies melena Genitourinary: Genitourinary: Reports hematuria (daughter says that had episode of blood in urine in the ER) Musculoskeletal: Musculoskeletal: Denies arthralgias Integumentary/Breasts: Skin/Breast: Denies rash Neurologic: Denies Abnormal speech present Psychiatric: Psychiatric: Denies anxiety [facility] Past Medical History Medical History Acute cerebrovascular accident (CVA) 03/2021 Anxiety Arthritis B12 deficiency Chronic low back pain Coronary artery disease Depression Heart attack History of stroke 03/2021 HLD (hyperlipidemia) HTN (hypertension) Middle cerebral artery aneurysm Non-STEMI (non-ST elevated myocardial infarction) September 2019 with left heart catheterization demonstrating modest left main disease, total occlusion of LAD and right coronary artery proximally, modest 40-50% stenosis of the 1st obtuse marginal branch of the circumflex, remaining patency of GARCIA to LAD, patency of saphenous vein graft to RCA, occlusion of the proximal aspect of the vein graft to the 1st obtuse marginal branch circumflex, mild left ventricular systolic dysfunction with posterior basal akinesis with good ejection fraction with medical therapy recommended. Occult blood in stoo
--- NOTE | 2023-05-02 14:31 | PM.IMHP ---
H&P: HPI History of Present Illness Date/Time: 05/02/23 14:31 Chief Complaint: Weakness Narrative: 78-year-old female with history of heart disease, AFib on Xarelto, stroke, hypertension, hyperlipidemia among other comorbidities is presenting with weakness and lightheadedness, compulsion to eat ice, worsening over the last few days as well as pallor. Patient saw her PCP and was found to have a hemoglobin of 5.6. She is on Xarelto. No chest pain or shortness of breath. No nausea, vomiting or diarrhea. No fevers or chills. She denies any melena, bright red blood per rectum or black tarry stools. Patient did receive transfusion in the ER. Stool occult positive. GI was consulted and is recommending a colonoscopy tomorrow. Hematology is also consulted and their consult is pending. Of note, patient has a history of right colon cancer status post right hemicolectomy in 2021. Review of Systems Review of Systems: 12 point review of systems was assessed and was negative except as noted in the HPI [facility] Past Medical History Medical History Acute cerebrovascular accident (CVA) 03/2021 Anxiety Arthritis B12 deficiency Chronic low back pain Coronary artery disease Depression Heart attack History of stroke 03/2021 HLD (hyperlipidemia) HTN (hypertension) Middle cerebral artery aneurysm Non-STEMI (non-ST elevated myocardial infarction) September 2019 with left heart catheterization demonstrating modest left main disease, total occlusion of LAD and right coronary artery proximally, modest 40-50% stenosis of the 1st obtuse marginal branch of the circumflex, remaining patency of GARCIA to LAD, patency of saphenous vein graft to RCA, occlusion of the proximal aspect of the vein graft to the 1st obtuse marginal branch circumflex, mild left ventricular systolic dysfunction with posterior basal akinesis with good ejection fraction with medical therapy recommended. Occult blood in stools Restless legs syndrome Synostosis (cranial) Tobacco use Surgical History Surgical History H/O cataract extraction History of bladder suspension procedure (~2006) History of carpal tunnel surgery Left wrist History of carpal tunnel surgery of left wrist (~2008) History of facial surgery Tongue surgery left face due to benign tumor - History of lumbosacral spine surgery 06/2020 History of lumpectomy of left breast (~1990) Hx of colectomy Hand access laparoscopic right colectomy on 08/08/22 S/P CABG x 3 2007 GARCIA to left anterior descending, vein graft to PDA and to the obtuse marginal S/P cubital tunnel release Left - 2009 Family History Family History Father Heart disease of heart disease Coronary artery disease Mother Heart disease of heart disease Coronary artery disease Sibling Heart disease 2 brothers have had CAD and stents Coronary artery disease Social History Social History Social History: The patient lives in her own home in [place]. She has 2 daughters and 1 son. Patient used to work for [employer]. The patient has been smoking for approximately 25-30 years. She quit at 1 point and then restarted. She is currently smoking 1/3 of a pack per day. Carlene Loja, her daughter, is her durable power deputy county attorney for healthcare. The patient desires to be a full code. Caffeine-daily Smoking packs per day: 0.5 Smoking cigarettes per day: 10.0 Years smoked: 52 Smoking pack-years: 26.00 Smoking status: Current every day smoker Second hand tobacco smoke exposure: Yes Additional smoking assessment comments: patient states she smokes 2 citgarretttes/day Alcohol intake: current Drinks per week: 7 Alcohol use details: 1 shot per night Substance use: current Substance use type: marijuana Other substance
[2023-05-02 15:21] LABS: Hematocrit 28.1 % (37.0-47.0); Hemoglobin 8.2 g/dL (12.0-15.0)
[2023-05-02] MEDS: BISACODYL 5 MG TABLET EC 20 MG PO (16:22)
[2023-05-02] MEDS: FOLIC ACID 0.4 MG TABLET PO (16:22)
--- NOTE | 2023-05-02 18:14 | PDONCCN ---
HPI - Date of Consult Date/Time: 05/02/23 18:14 Requesting Physician: Deepti Mcmahon MD Primary Care Provider: Murray Bourne MD - Consult Narrative Reason for consult: Macrocytic anemia Narrative: Yvonne Cunningham is a 78 year old female with history of stage II adenocarcinoma of cecum status post right-sided colectomy done in August 2022. Patient was last seen in the office in February of 2023 for anemia. She had bone marrow aspiration and biopsy done on January 26, 2023 that showed no evidence of malignancy and myelodysplastic syndrome. She was seen by the primary care physician and was sent to the hospital due to hemoglobin of 5.4. She received 2 units of packed red blood cells. She has been complaining of tiredness and fatigue. She also take Xarelto due to atrial fibrillation and history of stroke. She denies any chest pain and shortness of breath. Denies any melena hematochezia. CT scan abdomen and pelvis done that showed no significant abnormalities. Unfortunately iron studies and vitamin B12 level was not checked prior to the blood transfusion. Patient had EGD in 2021 that was normal. She was seen by Gastroenterology due to Hemoccult-positive stool and going to have colonoscopy tomorrow. Review of Systems - Review of Systems All systems reviewed & are unremarkable except as noted in HPI and bel - Neurologic Reports hearing normal, Denies abnormal speech [facility] Medical History: Medical History (Last Reviewed 05/02/23 @ 14:33 by Marlene Nava DO) Acute cerebrovascular accident (CVA) 03/2021 Anxiety Arthritis B12 deficiency Chronic low back pain Coronary artery disease Depression Heart attack History of stroke 03/2021 HLD (hyperlipidemia) HTN (hypertension) Middle cerebral artery aneurysm Non-STEMI (non-ST elevated myocardial infarction) September 2019 with left heart catheterization demonstrating modest left main disease, total occlusion of LAD and right coronary artery proximally, modest 40-50% stenosis of the 1st obtuse marginal branch of the circumflex, remaining patency of GARCIA to LAD, patency of saphenous vein graft to RCA, occlusion of the proximal aspect of the vein graft to the 1st obtuse marginal branch circumflex, mild left ventricular systolic dysfunction with posterior basal akinesis with good ejection fraction with medical therapy recommended. Occult blood in stools Restless legs syndrome Synostosis (cranial) Tobacco use Surgical History: Surgical History (Last Reviewed 05/02/23 @ 14:33 by Marlene Nava DO) H/O cataract extraction History of bladder suspension procedure Onset Date: ~2006 History of carpal tunnel surgery Left wrist History of carpal tunnel surgery of left wrist Onset Date: ~2008 History of facial surgery Tongue surgery left face due to benign tumor - History of lumbosacral spine surgery 06/2020 History of lumpectomy of left breast Onset Date: ~1990 Hx of colectomy Hand access laparoscopic right colectomy on 08/08/22 S/P CABG x 3 2007 GARCIA to left anterior descending, vein graft to PDA and to the obtuse marginal S/P cubital tunnel release Left - 2008 Family History: Family History (Last Reviewed 05/02/23 @ 14:33 by Marlene Nava DO) Father Heart disease of heart disease Coronary artery disease Mother Heart disease of heart disease Coronary artery disease Sibling Heart disease 2 brothers have had CAD and stents Coronary artery disease - Social History Social History: Social History (Last Reviewed 05/02/23 @ 14:33 by Marlene Nava DO) Gender Identity: Gender identity (if verbalized by the patient): Female Sexual Orientation: Sexual Orientation (if Verbalized by the Patient): Straight or Heterosexual Alcohol Use: Alcohol intake: current Drinks per week: 7 Alcohol use details: 1 shot per night Substance Use: Substance use: current S
--- NOTE | 2023-05-02 19:00 | PC.NURSE ---
On 05/02/23, the licence pending RN, Lawanda Godwin, provided care and completed [facility] documentation on this patient. I have reviewed the documentation and agree with the findings.
[2023-05-02] MEDS: METOPROLOL TARTRATE 12.5 MG TABLET PO (20:52)
[2023-05-02] MEDS: buPROPion HCL SR (12 HR) 150 MG TAB PO (20:52)
[2023-05-02 21:20] LABS: Hematocrit 30.8 % (37.0-47.0)
[2023-05-02 22:47] LABS: Folic Acid > 20.0 ng/mL (2.76->20)
[2023-05-03] VITALS (15 sets, daily range): BP systolic 115–158; BP diastolic 43–80; PULSE 53–75; RESP 15–23; TEMP 36.1–36.6; O2SAT 97–100
[2023-05-03] MEDS: PARoxetine 20 MG TABLET PO (08:32)
[2023-05-03] MEDS: FERROUS SULFATE 325 MG TABLET DR PO (08:33)
[2023-05-03] MEDS: POTASSIUM CHLORIDE 10 MEQ ER TABLET PO (08:33)
[2023-05-03] MEDS: METOPROLOL TARTRATE 12.5 MG TABLET PO ×2 (08:33→20:19)
[2023-05-03] MEDS: GABAPENTIN 300 MG CAPSULE PO ×3 (08:33→21:31)
[2023-05-03] MEDS: FUROSEMIDE 20 MG TABLET PO (08:33)
[2023-05-03] MEDS: CHOLECALCIFEROL 1,000 UNITS TABLET 2000 UNITS PO (08:34)
[2023-05-03] MEDS: amLODIPine BESYLATE 5 MG TABLET PO (08:34)
[2023-05-03] MEDS: lisinopriL 10 MG TABLET PO (08:34)
[2023-05-03] MEDS: buPROPion HCL SR (12 HR) 150 MG TAB PO ×2 (08:34→20:19)
[2023-05-03] MEDS: OMEGA 3 POLYUNSAT FATTY ACIDS 1 GM CAP PO (08:34)
[2023-05-03] MEDS: FOLIC ACID 0.4 MG TABLET PO ×2 (08:34→17:30)
[2023-05-03] MEDS: traMADol HCL (*CRX) 50 MG TABLET PO ×2 (08:37→17:32)
[2023-05-03] MEDS: PANTOPRAZOLE SODIUM IV 40 MG VIAL IV PUSH (08:40)
[2023-05-03] MEDS: LACTATED RINGERS 1,000 ML 150 ML IV CONT (10:13)
--- NOTE | 2023-05-03 10:50 | WPDANESEPPF ---
Anes - Initial Pre Proc Eval Procedure: Operation Date: 05/03/23 11:45 Proposed Procedures p Colonoscopy - Robert Jack MD Date/Time: 05/03/23 10:50 Surgeon: Abran Lees MD Pre Op Diagnosis: Anemia/Generalized Weakness Patient Data Age: 78 Gender: F Height: 1.7 m Weight: 86.9 kg Last Vital Signs Temp 96.9 F L 05/03/23 10:10 Pulse 60 05/03/23 10:10 Resp 18 05/03/23 10:10 BP 158/59 H 05/03/23 10:10 Pulse Ox 100 05/03/23 10:10 O2 Del Method Room Air 05/03/23 10:10 O2 Flow Rate 2 05/02/23 06:15 FiO2 21 05/02/23 20:42 Allergies Allergy/AdvReac Type Severity Reaction Status Date / Time No Known Allergies Allergy Verified 05/03/23 10:07 Home Medications Medication Instructions Recorded Confirmed Type amlodipine 5 mg tablet 5 mg PO DAILY 09/21/19 05/02/23 History aspirin 81 mg chewable tablet 81 mg PO DAILY 09/21/19 05/02/23 History folic acid 400 mcg tablet 0.4 mg PO BID 09/21/19 05/02/23 History metoprolol tartrate 25 mg tablet 12.5 mg PO BID 09/21/19 05/02/23 History omega-3 fatty acids-fish oil 340 1 cap PO DAILY 09/21/19 05/02/23 History mg-1,000 mg capsule nitroglycerin 0.4 mg sublingual 0.4 mg sublingual DIRECTED PRN 09/24/19 05/02/23 Rx tablet chest pain #25 tabs pantoprazole 40 mg tablet,delayed 40 mg PO DAILY #30 tabs 09/24/19 05/02/23 Rx release atorvastatin 40 mg tablet 40 mg PO QHS 07/01/21 05/02/23 History cholecalciferol (vitamin D3) 50 50 mcg PO DAILY #90 caps 11/28/22 05/02/23 Rx mcg (2,000 unit) capsule ferrous sulfate 325 mg (65 mg 325 mg PO DAILY #90 tabs 11/29/22 05/02/23 Rx iron) tablet mecobalamin (vitamin B12) 1,000 1,000 mcg sublingual DAILY #90 tabs 11/29/22 05/02/23 Rx mcg disintegrating tablet,sublingual acetaminophen 650 mg tablet 1,300 mg PO BID PRN Pain 01/19/23 05/02/23 History gabapentin 300 mg capsule 300 mg PO BID 01/19/23 05/02/23 History bupropion HCl 150 mg tablet,12 hr 150 mg PO BID #180 tabs 02/08/23 05/02/23 Rx sustained-release rivaroxaban 20 mg tablet (Xarelto) 20 mg PO DAILY 03/01/23 05/02/23 History lisinopril 10 mg tablet 10 mg PO DAILY #90 tabs 04/26/23 05/02/23 Rx furosemide 20 mg tablet (Lasix) 20 mg PO QAM #90 tabs 05/01/23 05/02/23 Rx paroxetine HCl 20 mg tablet 20 mg PO DAILY #90 tabs 05/01/23 05/02/23 Rx potassium chloride 10 mEq 10 meq PO DAILY #90 tabs 05/01/23 05/02/23 Rx tablet,extended release (Klor-Con) tramadol 50 mg tablet 50 mg PO Q8H PRN pain #90 tabs 05/01/23 05/02/23 Rx gabapentin 300 mg capsule 300 mg PO HS PRN Spasms 05/02/23 05/02/23 History Laboratory Tests 05/02/23 05/02/23 15:10 21:15 Hgb 8.2 L g/dL 9.0 L g/dL (12.0-15.0) (12.0-15.0) Hct 28.1 L % 30.8 L % (37.0-47.0) (37.0-47.0) Abril Transferrin Receptr Pending Vitamin B12 951.0 H pg/mL (239-931) Methylmalonic Acid Pending Folate > 20.0 H ng/mL (2.76->20) Patient hx anesthesia problems: none Family hx anesthesia problems: none Results Review: All pre-operative results and documents have been reviewed as part of the pre-operative evaluation. [facility] Past Medical History Medical History Acute cerebrovascular accident (CVA) 03/2021 Anxiety Arthritis B12 deficiency Chronic low back pain Coronary artery disease Depression Heart attack History of stroke 03/2021 HLD (hyperlipidemia) HTN (hypertension) Middle cerebral artery aneurysm Non-STEMI (non-ST elevated myocardial infarction) September 2019 with left heart catheterization demonstrating modest left main disease, total occlusion of LAD and right coronary artery proximally, modest 40-50% stenosis of the 1st obtuse marginal branch of the circumflex, remaining patency of GARCIA to LAD, patency of saphenous vein graft to RCA, occlusion of the proximal aspect of the vein graft to the 1st obtuse marginal branch circumflex, mild left ventricular systolic dysfunction with posterior basal akinesis
--- NOTE | 2023-05-03 11:42 | PM.IMPN ---
Progress Note: A&P Assessment and Plan (1) Acute anemia: Code(s): D64.9 - Anemia, unspecified Status: Acute Assessment and Plan: Unsure of etiology, appreciate GI consult, colonoscopy planned for today Appreciate hematology consult as well (2) Coronary artery disease: Qualifiers: Associated angina: without angina Coronary Disease-Associated Artery/Lesion type: bypass graft [place] vs. transplanted heart: [place] heart Qualified Code(s): I25.810 - Atherosclerosis of coronary artery bypass graft(s) without angina pectoris Code(s): I25.10 - Atherosclerotic heart disease of [place] coronary artery without angina pectoris Status: Chronic Assessment and Plan: Continue amlodipine, Lasix, lisinopril (3) Atrial fibrillation: Code(s): I48.91 - Unspecified atrial fibrillation Status: Acute Assessment and Plan: Hold anticoagulation for now (4) Chronic anticoagulation: Code(s): Z79.01 - group home (current) use of anticoagulants Status: Acute Assessment and Plan: Xarelto on hold (5) HTN (hypertension): Qualifiers: Hypertension type: primary hypertension Qualified Code(s): I10 - Essential (primary) hypertension Code(s): I10 - Essential (primary) hypertension Status: Chronic Assessment and Plan: Blood pressure reviewed. Continue home meds (6) HLD (hyperlipidemia): Qualifiers: Hyperlipidemia type: unspecified Qualified Code(s): E78.5 - Hyperlipidemia, unspecified Code(s): E78.5 - Hyperlipidemia, unspecified Status: Chronic (7) GERD without esophagitis: Code(s): K21.9 - Gastro-esophageal reflux disease without esophagitis Status: Acute Assessment and Plan: PPI (8) History of colon cancer: Code(s): Z85.038 - Personal history of other malignant neoplasm of large intestine Status: Acute Assessment and Plan: Status post right hemicolectomy 2021 Subjective Date/time seen: 05/03/23 11:42 Interval history: No overnight issues Review of Systems Review of Systems: 12 point review of systems was assessed and was negative except as noted in the HPI Exam Narrative: General: No acute distress, alert and oriented per baseline HEENT: Atraumatic, normocephalic, mucous membranes moist CV: Regular rate and rhythm, S1, S2 Lungs: Clear to auscultation bilaterally, no rales or crackles noted, no wheezes, good air entry Abdomen: Soft, nontender, nondistended Extremities: Normal to inspection Skin: No rashes noted, no lesions or wounds seen Psych: Euthymic, normal affect Objective Data Vital Signs Vital Signs: Vital Signs - 24 hr 05/02/23 12:01 05/02/23 16:04 05/02/23 20:42 Temperature Pulse Rate 63 62 Respiratory Rate Blood Pressure Pulse Oximetry 94 Oxygen Delivery Room Air Fraction of Inspired Oxygen 05/02/23 20:52 05/02/23 20:57 05/02/23 20:00 Temperature 98.2 F Pulse Rate 76 66 Respiratory Rate 20 Blood Pressure 164/51 H Pulse Oximetry 100 Oxygen Delivery Room Air Fraction of Inspired Oxygen 05/02/23 20:00 05/03/23 00:00 05/03/23 03:21 Temperature 97.1 F L Pulse Rate 64 65 69 Respiratory Rate 20 Blood Pressure 154/80 H Pulse Oximetry 100 Oxygen Delivery Fraction of Inspired Oxygen 05/03/23 04:00 05/03/23 08:33 05/03/23 10:10 Temperature 96.9 F L Pulse Rate 69 75 60 Respiratory Rate 18 Blood Pressure 158/59 H Pulse Oximetry 100 Oxygen Delivery Room Air Fraction of Inspired Oxygen 05/03/23 08:00 05/03/23 11:21 05/03/23 11:31 Temperature Pulse Rate 60 60 61 Respiratory Rate 18 22 H 15 Blood Pressure 115/51 L 116/55 L Pulse Oximetry 100 98 97 Oxygen Delivery Room Air Room Air Room Air Fraction of Inspired Oxygen 05/03/23 11:41 Temperature Pulse Rate 58 L Respiratory Rate 23 H Blood Pressure 123/
[2023-05-03] MEDS: ATORVASTATIN 40 MG TABLET PO (20:19)
[2023-05-04] VITALS: PULSE 77
[2023-05-04] MEDS: traMADol HCL (*CRX) 50 MG TABLET PO (01:31)
[2023-05-04 04:00] VITALS: PULSE 66
[2023-05-04 05:23] VITALS: BP 132/76; PULSE 57; RESP 18; TEMP 36.7; O2SAT 99
[2023-05-04 08:00] VITALS: PULSE 56
[2023-05-04 08:14] LABS: Hematocrit 28.6 % (37.0-47.0); Hemoglobin 8.3 g/dL (12.0-15.0)
--- NOTE | 2023-05-04 09:29 | PM.DS ---
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 In ED she was found have a hemoglobin of 6.5. She history of blood transfusion after which her hemoglobin remained stable. GI was consulted. Patient underwent colonoscopy which showed internal polyps and internal hemorrhoids. Patient is stable and okay to be discharged home per GI. Resume Xarelto. Patient will follow-up with hematology/oncology as outpatient Time Spent with Patient Time attestation: Total time spent providing and/or coordinating discharge services: DS: Data Data Completed and Pending Pending studies at discharge: Pending at discharge 05/03/23 13:34 Surgical [PTH] Routine Labs on day of discharge: Labs from last 24 hours 05/04/23 05/04/23 05:20 05:16 Hgb 8.3 L Hct 28.6 L Potassium 3.0 L Discharge Plan Discharge Consulting providers: Koby Vinson; Robert Jack Discharging Clinician: Abran Lees Anticipated Discharge Date/Time: 05/04/23 09:28 Patient Disposition: Home, Self-Care Activity: no preference Diet: heart healthy and high fiber Patient Instructions: Antibiotic Form, Rivaroxaban (By mouth), How to Stop Smoking (GEN) Stand Alone Forms: General Discharge Information Follow-up/Referrals: Koby Vinsno MD [Physician] - Gersno Bourne MD [Primary Care Provider] - Discharge Medications: Continued atorvastatin 40 mg tablet 40 mg PO QHS furosemide [Lasix] 20 mg tablet 20 mg PO QAM Qty: 90 0RF potassium chloride [Klor-Con 10] 10 mEq tablet extended release 10 meq PO DAILY Qty: 90 0RF paroxetine HCl 20 mg tablet 20 mg PO DAILY Qty: 90 0RF tramadol 50 mg tablet 50 mg PO Q8H PRN (Reason: pain) Qty: 90 2RF Xarelto 20 mg tablet 20 mg PO DAILY Rx Instructions: must administer with evening meal amlodipine 5 mg Tablet 5 mg PO DAILY aspirin 81 mg Tablet,Chewable 81 mg PO DAILY Hold Instructions: Hold per surgery. Mesfin restart as outpatient. metoprolol tartrate 25 mg tablet 12.5 mg PO BID folic acid 400 mcg Tablet 0.4 mg PO BID omega-3 fatty acids-fish oil 340-1,000 mg Capsule 1 cap PO DAILY nitroglycerin 0.4 mg tablet, sublingual 0.4 mg SUBLINGUAL DIRECTED PRN (Reason: chest pain) Qty: 25 3RF Rx Instructions: 1 tablet sublingual Q 5 minutes x3 doses p.r.n. chest pain If no relief call 911 pantoprazole 40 mg Tablet,Delayed Release (Dr/Ec) 40 mg PO DAILY Qty: 30 3RF acetaminophen 650 mg Tablet 1,300 mg PO BID PRN (Reason: Pain) gabapentin 300 mg capsule 300 mg PO BID gabapentin 300 mg capsule 300 mg PO HS PRN (Reason: Spasms) Rx Instructions: PT CAN TAKE ADDITIONAL DOSE NEEDED HS FOR LEG PAIN cholecalciferol (vitamin D3) 50 mcg (2,000 unit) capsule 50 mcg PO DAILY Qty: 90 1RF ferrous sulfate 325 mg (65 mg iron) tablet 325 mg PO DAILY Qty: 90 1RF mecobalamin (vitamin B12) 1,000 mcg tablet,disintegrating 1,000 mcg sublingual DAILY Qty: 90 1RF Rx Instructions: place tablet under tongue and allow to dissolve for at least30 secs before swallowing bupropion HCl 150 mg tablet sustained-release 12 hr 150 mg PO BID Qty: 180 0RF lisinopril 10 mg tablet
[2023-05-04 10:09] VITALS: BP 153/59; PULSE 61; O2SAT 100
[2023-05-04] MEDS: GABAPENTIN 300 MG CAPSULE PO (10:11)
[2023-05-04] MEDS: PARoxetine 20 MG TABLET PO (10:11)
[2023-05-04] MEDS: POTASSIUM CHLORIDE 10 MEQ ER TABLET PO (10:11)
[2023-05-04] MEDS: FOLIC ACID 0.4 MG TABLET PO (10:11)
[2023-05-04 10:12] VITALS: PULSE 61
[2023-05-04] MEDS: lisinopriL 10 MG TABLET PO (10:12)
[2023-05-04] MEDS: FUROSEMIDE 20 MG TABLET PO (10:12)
[2023-05-04] MEDS: buPROPion HCL SR (12 HR) 150 MG TAB PO (10:12)
[2023-05-04] MEDS: METOPROLOL TARTRATE 12.5 MG TABLET PO (10:12)
[2023-05-04] MEDS: amLODIPine BESYLATE 5 MG TABLET PO (10:12)
[2023-05-04] MEDS: FERROUS SULFATE 325 MG TABLET DR PO (10:12)
[2023-05-04] MEDS: PANTOPRAZOLE 40 MG TABLET PO (10:13)
[2023-05-04] MEDS: CHOLECALCIFEROL 1,000 UNITS TABLET 2000 UNITS PO (10:13)
[2023-05-04] MEDS: OMEGA 3 POLYUNSAT FATTY ACIDS 1 GM CAP PO (10:13)
[2023-05-04] MEDS: CYANOCOBALAMIN 1,000 MCG TABLET 1000 MCG PO (10:16)
[2023-05-04] MEDS: POTASSIUM CHLORIDE 20 MEQ ER TABLET 40 MEQ PO (10:17)
--- NOTE | 2023-05-04 10:32 | WPDANESPN ---
Anes - Prog Note Post-Op Date/Time: 05/04/23 10:32 Cardiovascular status: normal Respiratory status: normal Airway patency: baseline Mental status: baseline Post-Op hydration status: normal Vital Signs: Last Vital Signs Temp 36.7 C 05/04/23 05:23 Pulse 61 05/04/23 10:12 Resp 18 05/04/23 05:23 BP 153/59 H 05/04/23 10:09 Pulse Ox 100 05/04/23 10:09 O2 Del Method Room Air 05/03/23 11:41 O2 Flow Rate 2 05/02/23 06:15 FiO2 21 05/03/23 08:00 Pain Score (VAS): 3/10 I/O: Intake & Output 05/03/23 05/04/23 05/04/23 23:59 07:59 15:59 Intake Total 440 250 360 Balance 440 250 360 Laboratory Tests 05/04/23 05:16 05/04/23 05:20 05/04/23 05/04/23 05:16 05:20 Hgb 8.3 L Hct 28.6 L Potassium 3.0 L Post-procedural complaints: none Patient Feedback: Patient satisfied with anesthetic care.
--- NOTE | 2023-05-04 12:01 | WPDGIPROGNO ---
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 Status: Acute Assessment and Plan: probably contributing to her anemia monitor cbc as outpatient (4) Atrial fibrillation: Code(s): I48.91 - Unspecified atrial fibrillation Status: Acute Subjective Date/time seen: 05/04/23 12:01 Interval history: colonoscopy yesterday with site of anastomosis normal, small polyp removed, no signs of bleeding she is back to normal and feeling like going home today Review of Systems Review of Systems: All systems reviewed & are unremarkable except as noted in HPI and below Exam Const: General: comfortable and no acute distress HENMT: Face/Nose/Sinus: Normal nares present Eyes: General: appearance normal, both eyes and all related structures Neck: Neck: no JVD Resp: Auscultation: clear to auscultation bilaterally Cardio: Rate: regular rate Rhythm: regular rhythm GI: Inspection: non-distended GI Palp: Yes Soft to palpation and No Guarding due to palpation present (GI) Auscultation: normal bowel sounds Skin: General skin exam: no rashes or lesions noted Neuro: Speech: normal speech Motor exam (neuro): 5/5 motor strength present throughout Extrem: General: normal to inspection Psych: Mental Status: mental status grossly normal Objective Data Vital Signs Vital Signs: Vital Signs - 24 hr 05/03/23 16:10 05/03/23 20:19 05/03/23 21:28 Temperature 97.4 F L 97.8 F Pulse Rate 70 63 62 Respiratory Rate 18 18 Blood Pressure 142/56 H 149/43 H Pulse Oximetry 99 100 Oxygen Delivery 05/03/23 20:00 05/04/23 00:00 05/04/23 04:00 Temperature Pulse Rate 70 77 66 Respiratory Rate Blood Pressure Pulse Oximetry Oxygen Delivery 05/04/23 05:23 05/04/23 10:09 05/04/23 10:12 Temperature 98.1 F Pulse Rate 57 L 61 61 Respiratory Rate 18 Blood Pressure 132/76 153/59 H Pulse Oximetry 99 100 Oxygen Delivery 05/04/23 10:00 05/04/23 08:00 Temperature Pulse Rate 56 L Respiratory Rate Blood Pressure Pulse Oximetry Oxygen Delivery Room Air Intake/Output Intake/Output: Intake & Output 05/01/23 05/02/23 05/03/23 05/04/23 23:59 23:59 23:59 23:59 Intake Total 1860 760 610 Output Total 900 Balance 960 760 610 Meds/Results Medications: Active Medications Generic Name Dose Route Start Last Admin Trade Name Freq PRN Reason Stop Dose Admin Amlodipine Besylate 5 mg 05/03/23 09:00 05/04/23 10:12 Amlodipine Besylate 5 Mg Tablet PO 5 mg DAILY BERKLEY Administration Atorvastatin Calcium 40 mg 05/02/23 21:00 05/03/23 20:19 Atorvastatin 40 Mg Tablet PO 40 mg QHS BERKLEY Administration Bupropion HCl 150 mg 05/02/23 21:00 05/04/23 10:12 Bupropion Hcl Sr (12 Hr) 150 Mg Tab PO 150 mg Q12HR BERKLEY Administration Cyanocobalamin 1,000 mcg 05/04/23 09:00 05/04/23 10:16 Cyanocobalamin 1,000 Mcg Tablet PO 06/02/23 08:59 1,000 mcg DAILY BERKLEY Administration Ferrous Sulfate 325 mg 05/03/23 08:00 05/04/23 10:12 Ferrous Sulfate [address] PO 325 mg DAILY@0800 BERKLEY Administration Fish Oil 1 gm 05/03/23 09:00 05/04/23 10:13 [place] 3 Polyunsat Fatty Acids 1 Gm Cap PO 1 gm DAILY BERKLEY Administration Folic Acid 0.4 mg 05/02/23 17:00 05/04/23 10:11 Folic Acid 0.4 Mg Tablet PO 0.4 mg BID BERKLEY Administration Furosemide 20 mg 05/03/23 09:00 05/04/23 10:12 Furosemide 20 Mg T
--- NOTE | 2023-05-04 12:01 | PC.NURSE ---
On 05/04/23, the student, [Jerald Burch], provided care and completed [employer] documentation on this patient. I have reviewed the student's documentation and agree with the findings.
[2023-05-06 06:43] LABS: Methylmalonic Acid 75 nmol/L (87-318)
[2023-05-11 01:26] LABS: Soluble Transferrin Receptor 4.02 mg/L (0.76-1.76)
== END 2023-05-04 11:34 | disposition home or self-care (01) ==
LOC: ANHED 05-02 04:58 → ANH3MEDSUR 05-02 08:19 → ANH2MED 05-02 10:16
PROVIDERS: Internal Medicine Gastroenterology; Internal Medicine Hematology & Oncology; Admitting Provider Student in an Organized Health Care Education/Training Program; Emergency Provider Emergency Medicine; PCP Family Medicine; Visit Provider Hospitalist
PROC: 0DJD8ZZ Inspection of Lower Intestinal Tract, Via Natural or Artificial Opening Endoscopic (ICD-10-PCS; CPT 45378; principal; 2023-05-03 11:45)
DX: K63.89 Other specified diseases of intestine (principal); D12.3 Benign neoplasm of transverse colon; D12.4 Benign neoplasm of descending colon; K64.8 Other hemorrhoids; R19.5 Other fecal abnormalities; Z90.49 Acquired absence of other specified parts of digestive tract; D64.9 Anemia, unspecified; I25.810 Atherosclerosis of coronary artery bypass graft(s) without angina pectoris; Z95.1 Presence of aortocoronary bypass graft; I48.91 Unspecified atrial fibrillation; I10 Essential (primary) hypertension; E78.5 Hyperlipidemia, unspecified; K21.9 Gastro-esophageal reflux disease without esophagitis; F41.9 Anxiety disorder, unspecified; M19.90 Unspecified osteoarthritis, unspecified site; E56.9 Vitamin deficiency, unspecified; F32.A Depression, unspecified; I25.2 Old myocardial infarction; G25.81 Restless legs syndrome; R94.31 Abnormal electrocardiogram [ECG] [EKG]; F17.210 Nicotine dependence, cigarettes, uncomplicated; F10.90 Alcohol use, unspecified, uncomplicated; F12.90 Cannabis use, unspecified, uncomplicated; Z85.038 Personal history of other malignant neoplasm of large intestine; Z86.73 Personal history of transient ischemic attack (TIA), and cerebral infarction without residual deficits; Z79.01 Long term (current) use of anticoagulants; Z79.82 Long term (current) use of aspirin; Z79.1 Long term (current) use of non-steroidal anti-inflammatories (NSAID); Z79.891 Long term (current) use of opiate analgesic; Z79.899 Other long term (current) drug therapy
CPT/HCPCS: 45385; 36415; 36430; 74177; 80053; 81001; 82607; 82652; 82746; 83735; 83880; 83921; 84132; 84238; 85014; 85018; 85025; 85610; 85730; 86850; 86900; 86901; 86923; 88305; 93005; 96361; 96374; 96376; 99285; A9270; C9113; G0378; J2704; J7050; J7120; P9016; Q9967

== ENCOUNTER 2023-05-10 15:12 | Outpatient (CLI) | payer MEDICARE, SELFPAY ==
[2023-05-10 17:53] LABS: Basophils Absolute Auto 0.1 K/mm3 (0.0-0.1); Basophils Percent Auto 1.4 % (0.2-1.2); Eosinophils Absolute Auto 0.2 K/mm3 (0-0.3); Eosinophils Percent Auto 3.5 % (0-4.4); Hematocrit 29.1 % (37.0-47.0); Hemoglobin 8.2 g/dL (12.0-15.0); Immature Granulocyte Absolute 0.01 K/mm3 (0.00-0.031); Immature Granulocyte Percent A 0.2 % (0-0.5); Lymphocytes Absolute Auto 0.88 K/mm3 (0.9-3.2); Lymphocytes Percent Auto 20.7 % (18.3-44.2); Mean Corpuscular HGB Conc 28.2 g/dl (32-36); Mean Corpuscular Hemoglobin 30.5 pg (26-34); Mean Corpuscular Volume 108.2 fl (80-100); Mean Platelet Volume 11.8 fl (7.4-10.4); Monocytes Absolute Auto 0.5 K/mm3 (0.1-0.6); Neutrophils Absolute Auto 2.7 K/mm3 (1.3-6.7); Neutrophils Percent Auto 63.2 % (45.5-73.1); Platelet Count Result 290 k/mm3 (150-375); Red Blood Count 2.69 M/mm3 (4.2-5.4); Red Cell Distribution Width 18.3 % (11.5-14.5); White Blood Count 4.3 K/mm3 (4.5-10.0)
[2023-05-10 18:35] LABS: Platelet Estimate Adequate (Adequate); Schistocytes None Seen (NORMAL)
[2023-05-10 18:36] LABS: Hypochromasia 1+ (NORMAL)
[2023-05-10 18:37] LABS: Anisocytosis 2+ (NORMAL)
[2023-05-10 20:06] LABS: Alanine Aminotransferase 15 U/L (6-35); Albumin Level 3.5 g/dL (3.5-5.1); Alkaline Phosphatase 68 U/L (38-126); Anion Gap 5 mmol/L (8-16); Aspartate Amino Transferase 32 U/L (14-36); Bilirubin,Total 0.4 mg/dL (0.2-1.3); Blood Urea Nitrogen 18 mg/dL (7-17); Calcium 9.1 mg/dL (8.4-10.2); Carbon Dioxide 30 mmol/L (22-30); Chloride 101 mmol/L (98-107); Estimated Glomerular Filt Rate > 60; Glucose 77 mg/dL (65-110); Sodium 136 mmol/L (137-145)
[2023-05-10 20:12] LABS: NT Pro B Type Natriuretic Pept 492 pg/mL (19.9-100)
== END 2023-05-10 15:13 | disposition home or self-care (01) ==
LOC: ANHGOSHLAB 15:15
PROVIDERS: PCP Family Medicine; Visit Provider Nurse Practitioner Family
DX: R06.02 Shortness of breath (principal); Z85.038 Personal history of other malignant neoplasm of large intestine
CPT/HCPCS: 36415; 80053; 83880; 85025

== ENCOUNTER 2023-05-19 13:13 | Outpatient (CLI) | payer MEDICARE, SELFPAY ==
[2023-05-19 13:30] LABS: Basophils Absolute Auto 0.1 K/mm3 (0.0-0.1); Basophils Percent Auto 1.3 % (0.2-1.2); Eosinophils Absolute Auto 0.1 K/mm3 (0-0.3); Eosinophils Percent Auto 3.1 % (0-4.4); Hematocrit 21.7 % (37.0-47.0); Immature Granulocyte Absolute 0.01 K/mm3 (0.00-0.031); Immature Granulocyte Percent A 0.2 % (0-0.5); Lymphocytes Absolute Auto 0.88 K/mm3 (0.9-3.2); Lymphocytes Percent Auto 19.3 % (18.3-44.2); Mean Corpuscular HGB Conc 28.6 g/dl (32-36); Mean Corpuscular Volume 111.9 fl (80-100); Mean Platelet Volume 10.2 fl (7.4-10.4); Monocytes Absolute Auto 0.4 K/mm3 (0.1-0.6); Monocytes Percent Auto 7.7 % (2.6-8.5); Neutrophils Absolute Auto 3.1 K/mm3 (1.3-6.7); Neutrophils Percent Auto 68.4 % (45.5-73.1); Platelet Count Result 277 k/mm3 (150-375); Red Blood Count 1.94 M/mm3 (4.2-5.4); Red Cell Distribution Width 18.6 % (11.5-14.5); White Blood Count 4.6 K/mm3 (4.5-10.0)
[2023-05-19 13:34] LABS: Hemoglobin 6.2 g/dL (12.0-15.0)
[2023-05-19 16:31] LABS: Alanine Aminotransferase 16 U/L (6-35); Albumin Level 3.4 g/dL (3.5-5.1); Alkaline Phosphatase 70 U/L (38-126); Anion Gap 3 mmol/L (8-16); Aspartate Amino Transferase 20 U/L (14-36); Bilirubin,Total 0.3 mg/dL (0.2-1.3); Blood Urea Nitrogen 19 mg/dL (7-17); Calcium 8.9 mg/dL (8.4-10.2); Carbon Dioxide 31 mmol/L (22-30); Chloride 103 mmol/L (98-107); Estimated Glomerular Filt Rate > 60; Glucose 100 mg/dL (65-110); Potassium 3.8 mmol/L (3.4-5.0); Sodium 137 mmol/L (137-145)
[2023-05-19 16:36] LABS: Iron 324 ug/dL (37-170)
[2023-05-19 16:44] LABS: Percent Iron Saturation 73 % (20-50)
[2023-05-19 17:38] LABS: Folic Acid > 20.0 ng/mL (2.76->20); Vitamin B12 > 1000.0 pg/mL (239-931)
== END 2023-05-19 13:14 | disposition home or self-care (01) ==
LOC: ANHLAB 13:16
PROVIDERS: PCP Family Medicine; Visit Provider Internal Medicine Hematology & Oncology
DX: D64.9 Anemia, unspecified (principal); C18.0 Malignant neoplasm of cecum
CPT/HCPCS: 36415; 80053; 82607; 82728; 82746; 83540; 83550; 85025; 86850; 86900; 86901

== ENCOUNTER 2023-05-22 07:11 | Outpatient (RCR) | payer MEDICARE, SELFPAY ==
[2023-05-22] VITALS (13 sets, daily range): BP systolic 102–140; BP diastolic 40–62; PULSE 56–66; RESP 16–20; TEMP 36.3–36.8; O2SAT 94–100; BMI 28.6
[2023-05-22] MEDS: ACETAMINOPHEN 325 MG TABLET 650 MG PO (07:37)
[2023-05-22] MEDS: FUROSEMIDE INJ 40 MG/4 ML VIAL 20 MG IV PUSH (11:40)
--- NOTE | 2023-05-22 14:57 | PC.NURSE ---
transfusion 2 units PRBC complete without reaction or complications. pt stable at this time. will d/c to home with instructions
== END 2023-08-20 23:59 | disposition home or self-care (01) ==
LOC: ANHCPCTRAN 07:11
PROVIDERS: PCP Family Medicine; Visit Provider Internal Medicine Hematology & Oncology
DX: D64.9 Anemia, unspecified (principal)
CPT/HCPCS: 36430; A9270; J1940; P9016

== ENCOUNTER 2023-06-19 05:37 | Outpatient (CLI) | payer MEDICARE, SELFPAY ==
[2023-06-19] MEDS: SIMETHICONE ORAL SUSPENSION 20 MG/0.3 ML 30 ML BOTTLE 1.2 ML PO (06:45)
--- NOTE | 2023-06-19 06:51 | SUR.OPER ---
Patient brought to GI Lab. Instructions for patient undergoing Capsule Endoscopy reviewed with patient. Consent form signed. Sensor array applied to patient's abdomen and connected to recorded. Patient swallowed capsule with 16 ozs of water infused with Simethicone. Patient instructed they may have clear liquids at 0830 this AM and eat or drink at 1030 this AM. Patient instructed to return to GI Lab at 1500 this afternoon for removal of recording device and to call [phone] or to return to the hospital if any nausea and vomiting or abdominal pain is experienced.
--- NOTE | 2023-06-19 15:21 | SUR.OPER ---
Patient returned to the GI Lab at 1500 for recorder box removal. Patient voiced no complaints. States they have understanding of instructions. Patient left ambulatory. Patient told that x-ray was ordered for follow up on 06/21/2023 at [facility].
== END 2023-06-19 06:50 | disposition home or self-care (01) ==
PROVIDERS: PCP Family Medicine; Visit Provider Internal Medicine Gastroenterology
PROC: 0DJ07ZZ Inspection of Upper Intestinal Tract, Via Natural or Artificial Opening (ICD-10-PCS; CPT 91110; principal; 2023-06-19 07:00)
DX: D50.9 Iron deficiency anemia, unspecified (principal)
CPT/HCPCS: 36415; 80053; 82607; 82728; 83540; 83550; 84155; 84165; 85025; 91110

== ENCOUNTER 2023-06-19 08:13 | Outpatient (CLI) | payer MEDICARE, SELFPAY ==
[2023-06-19 08:47] LABS: Basophils Percent Auto 0.8 % (0.2-1.2); Eosinophils Absolute Auto 0.2 K/mm3 (0-0.3); Eosinophils Percent Auto 3.7 % (0-4.4); Hematocrit 32.1 % (37.0-47.0); Hemoglobin 9.5 g/dL (12.0-15.0); Immature Granulocyte Absolute 0.01 K/mm3 (0.00-0.031); Immature Granulocyte Percent A 0.2 % (0-0.5); Lymphocytes Absolute Auto 1.02 K/mm3 (0.9-3.2); Mean Corpuscular HGB Conc 29.6 g/dl (32-36); Mean Corpuscular Hemoglobin 30.5 pg (26-34); Mean Corpuscular Volume 103.2 fl (80-100); Mean Platelet Volume 10.7 fl (7.4-10.4); Monocytes Absolute Auto 0.5 K/mm3 (0.1-0.6); Monocytes Percent Auto 9.9 % (2.6-8.5); Neutrophils Absolute Auto 3.1 K/mm3 (1.3-6.7); Neutrophils Percent Auto 64.4 % (45.5-73.1); Platelet Count Result 244 k/mm3 (150-375); Red Blood Count 3.11 M/mm3 (4.2-5.4); White Blood Count 4.9 K/mm3 (4.5-10.0)
[2023-06-19 12:09] LABS: Iron 36 ug/dL (37-170)
[2023-06-19 12:11] LABS: Alanine Aminotransferase 16 U/L (6-35); Alkaline Phosphatase 93 U/L (38-126); Anion Gap 4 mmol/L (8-16); Aspartate Amino Transferase 44 U/L (14-36); Bilirubin,Total 0.5 mg/dL (0.2-1.3); Blood Urea Nitrogen 15 mg/dL (7-17); Calcium 9.4 mg/dL (8.4-10.2); Carbon Dioxide 31 mmol/L (22-30); Chloride 103 mmol/L (98-107); Estimated Glomerular Filt Rate > 60; Glucose 89 mg/dL (65-110); Potassium 4.2 mmol/L (3.4-5.0); Sodium 138 mmol/L (137-145)
[2023-06-19 12:21] LABS: Percent Iron Saturation 9 % (20-50)
[2023-06-21 15:38] LABS: Albumin 3.3 g/dL (3.8-4.8); Alpha 1 Globulin 0.3 g/dL (0.2-0.3); Beta 1 Globulin 0.5 g/dL (0.4-0.6); Gamma Globulin 0.9 g/dL (0.8-1.7); Protein, Total 6.3 g/dL (6.1-8.1)
== END 2023-06-19 08:14 | disposition home or self-care (01) ==
LOC: ANHLAB 08:16
PROVIDERS: PCP Family Medicine; Visit Provider Internal Medicine Hematology & Oncology
DX: D64.9 Anemia, unspecified (principal)
CPT/HCPCS: 36415; 80053; 82607; 82728; 83540; 83550; 84155; 84165; 85025

== ENCOUNTER 2023-06-21 10:52 | Outpatient (CLI) | payer MEDICARE, SELFPAY ==
--- NOTE | ~2023-06-21 | XR_ITS ---
EXAMINATION: XR skull min 4V DATE: 06/21/2023 11:37 INDICATION: Lytic lesion of the skull. TECHNIQUE: 4 views of the skull were obtained. COMPARISON: Skull radiographs 07/05/2022, head CT 02/25/2023 FINDINGS: There is a 16 mm lytic lesion with bony septa in the skull on the right, consistent with a hemangioma. No fracture. IMPRESSION: 1. Chronic 16 mm lytic lesion with bony septa in the skull on the right, consistent with a hemangioma . Reviewed, dictated and finalized at location E. IMPRESSION: 1. Chronic 16 mm lytic lesion with bony septa in the skull on the right, consis tent with a hemangioma.
--- NOTE | ~2023-06-21 | XR_ITS ---
Supine and upright views of the abdomen Clinical history: Anemia, GI capsule Findings: Bowel gas pattern is nonspecific. Large amount of stool present. No evidence for obstructio n or free air. 15 mm round calcification in the right mid abdomen presumably represents a renal stone . There is a metallic object in the left midabdomen, which could reflect ingested GI capsule. Lumbosa cral spinal fixation hardware is present. Impression: Metallic object in the left midabdomen, which could represent ingested GI capsule device. 15 mm round calcification right midabdomen, presumably a renal stone. Gallstone with a potential alte rnative consideration. Large amount of stool. Correlate for constipation. Reviewed, dictated and finalized at location M. Impression: Metallic object in the left midabdomen, which could represent ingested GI capsu le device. 15 mm round calcification right midabdomen, presumably a renal stone. Gallstone with a potential alternative consideration. Large amount of stool. Correlate for constipation.
== END 2023-06-21 10:53 | disposition home or self-care (01) ==
PROVIDERS: PCP Family Medicine; Visit Provider Student in an Organized Health Care Education/Training Program
DX: R93.0 Abnormal findings on diagnostic imaging of skull and head, not elsewhere classified (principal); D50.9 Iron deficiency anemia, unspecified
CPT/HCPCS: 70260; 74018

== ENCOUNTER 2023-06-28 09:44 | Outpatient (CLI) | payer MEDICARE, SELFPAY ==
--- NOTE | ~2023-06-28 | XR_ITS ---
Supine and upright views of the abdomen Clinical history: Evaluate for retained capsule COMPARISON: 06/21/2023 Findings: Bowel gas pattern is nonspecific. Large amount of stool present. No evidence for obstructio n or free air. No abnormal mass lesion or calcification is seen. Lumbosacral spinal fixation hardware again present. Previously noted capsule is no longer visualized. Impression: Previously visualized capsule is no longer visualized. Large amount of stool. Correlate for constipation. Reviewed, dictated and finalized at location . Impression: Previously visualized capsule is no longer visualized. Large amount of stool. Correlate for constipation.
== END 2023-06-28 09:45 | disposition home or self-care (01) ==
PROVIDERS: PCP Family Medicine; Visit Provider Internal Medicine Gastroenterology
DX: T18.9XXA Foreign body of alimentary tract, part unspecified, initial encounter (principal)
CPT/HCPCS: 74018

== ENCOUNTER 2024-03-27 13:59 | Outpatient (CLI) | payer MEDICARE, SELFPAY ==
[2024-03-27 19:18] LABS: Hematocrit 39.1 % (37.0-47.0); Hemoglobin 12.8 g/dL (12.0-15.0); Mean Corpuscular HGB Conc 32.7 g/dl (32-36); Mean Corpuscular Hemoglobin 31.8 pg (26-34); Mean Platelet Volume 13.2 fl (7.4-10.4); Platelet Count Result 169 k/mm3 (150-375); Red Blood Count 4.03 M/mm3 (4.2-5.4); Red Cell Distribution Width 12.9 % (11.5-14.5); White Blood Count 4.4 K/mm3 (4.5-10.0)
[2024-03-27 19:20] LABS: Iron 92 ug/dL (37-170)
[2024-03-27 19:30] LABS: Percent Iron Saturation 25 % (20-50)
[2024-03-27 20:10] LABS: Alanine Aminotransferase 16 U/L (6-35); Albumin Level 4.2 g/dL (3.5-5.1); Alkaline Phosphatase 83 U/L (38-126); Anion Gap 6 mmol/L (4-12); Aspartate Amino Transferase 27 U/L (14-36); Bilirubin,Total 0.5 mg/dL (0.2-1.3); Blood Urea Nitrogen 13 mg/dL (7-17); Calcium 9.7 mg/dL (8.4-10.2); Carbon Dioxide 32 mmol/L (22-30); Chloride 100 mmol/L (98-107); Cholesterol 102 mg/dL (0-200); Estimated Glomerular Filt Rate 54; Glucose 91 mg/dL (65-110); HDL Direct 31 mg/dL; Potassium 4.5 mmol/L (3.4-5.0); Sodium 138 mmol/L (137-145); Triglycerides 91 mg/dL (<150)
[2024-03-27 20:21] LABS: LDL Cholesterol Direct 49 mg/dL
== END 2024-03-27 14:00 | disposition home or self-care (01) ==
LOC: ANHGOSHLAB 14:00
PROVIDERS: PCP Family Medicine; Visit Provider Nurse Practitioner
DX: M85.88 Other specified disorders of bone density and structure, other site (principal); Z00.00 Encounter for general adult medical examination without abnormal findings; I10 Essential (primary) hypertension; E55.9 Vitamin D deficiency, unspecified; D50.9 Iron deficiency anemia, unspecified
CPT/HCPCS: 36415; 80053; 80061; 82306; 83540; 83550; 84443; 85027

== ENCOUNTER 2024-04-08 15:06 | Outpatient (CLI) | payer MEDICARE, SELFPAY ==
--- NOTE | ~2024-04-08 | MM_ITS ---
EXAMINATION: MM screening madeleine BI w richy HISTORY: Screening TECHNIQUE: Craniocaudal and mediolateral oblique 3-D tomosynthesis images were obtained and synthetic 2-D images were generated. CAD analysis was submitted and interpreted. COMPARISON: Comparison to multiple prior studies sequentially, with oldest reviewed study dated 11/2016. BREAST PARENCHYMAL COMPOSITION: There are scattered areas of fibroglandular density. FINDINGS: There is no evidence of suspicious mass, calcification, or architectural distortion to sugg est malignancy in either breast. There has been no suspicious interval change. IMPRESSION: 1. No mammographic evidence of malignancy. 2. Recommend routine screening mammography in one year. BI-RADS Category 1: Negative Reviewed, dictated and finalized at location B.
== END 2024-04-08 15:07 | disposition home or self-care (01) ==
PROVIDERS: PCP Family Medicine; Visit Provider Nurse Practitioner
DX: Z12.31 Encounter for screening mammogram for malignant neoplasm of breast (principal)
CPT/HCPCS: 77063; 77067

== ENCOUNTER 2024-05-07 08:18 | Outpatient (CLI) | payer MEDICARE, SELFPAY ==
--- NOTE | ~2024-05-07 | CT_ITS ---
CT Scan of the Chest without Contrast: Clinical Indication: Lung cancer screening, nicotine dependence Technique: Contiguous sections were acquired throughout the chest without intravenous contrast. Dose reduction technique was used on this scan by utilizing automated exposure control and iterative recon struction technique. The dose-length product (DLP) was 198.92 mGy-cm. COMPARISON: 08/06/2021 Findings: There is no evidence of any significant mediastinal, hilar or axillary lymphadenopathy. Coronary china ry calcification are present. There is no evidence of pleural or pericardial effusion. The lungs are clear, aside from calcified right upper lobe granulomas. Images through the upper abdomen reveal no abnormalities. Impression: Lung RADS 2: Benign appearance. 12 month follow-up screening CT advised. Reviewed, dictated and finalized at location . Impression: Lung RADS 2: Benign appearance. 12 month follow-up screening CT advised.
--- NOTE | ~2024-05-07 | CT_ITS ---
CT of the Abdomen and Pelvis: Indication: Cecal cancer Technique: 2.5 mm axial scans were obtained through the abdomen and pelvis following intravenous adm inistration of 100 cc of Omnipaque 350. Dose reduction technique was used on this scan by utilizing a utomated exposure control and iterative reconstruction technique. The dose-length product (DLP) was 1 217.62 mGy-cm. COMPARISON: 05/02/2023 Findings: Scans through the lung bases are unremarkable. The liver, spleen, pancreas, gallbladder, adrenals and kidneys are within normal limits. There are at herosclerotic calcifications of the aorta. No lymphadenopathy. No bowel obstruction or bowel wall thickening. Evidence of prior partial right colectomy. Images through the pelvis were performed. Urinary bladder unremarkable. No adnexal mass seen. No asci belinda. Impression: No evidence of active malignancy or metastatic disease. Prior partial right colectomy. Reviewed, dictated and finalized at [facility]. Impression: No evidence of active malignancy or metastatic disease. Prior partial right colectomy.
--- NOTE | ~2024-05-07 | MR_ITS ---
EXAMINATION: MRA brain wo con DATE: 05/07/2024 10:05 INDICATION: Cerebral aneurysm, nonruptured. TECHNIQUE: Magnetic resonance angiography (MRA) of the brain was performed without intravenous contra st with T1-weighted SPGR by the 3D [id number] technique. Maximum intensity projection 3D-reconstr uctions were obtained. COMPARISON: Brain MRI 03/26/21, CTA head 03/25/2021 FINDINGS: Motion artifact is noted. Right vertebral artery is dominant. There is no significant stenosis of bas ilar artery or the posterior cerebral arteries. There is no significant stenosis of the internal parisi tid arteries or anterior or middle cerebral arteries. Posterior communicating arteries are not identi fied. Anterior communicating artery is unremarkable. IMPRESSION: 1. No aneurysm identified. Sensitivity and specificity are moderately decreased by motion artifact. Reviewed, dictated and finalized at location A.
[2024-05-07 08:47] LABS: Estimated Glomerular Filt Rate 48
== END 2024-05-07 08:19 | disposition home or self-care (01) ==
LOC: ANHIMG 08:20
PROVIDERS: PCP Family Medicine; Referring Provider Nurse Practitioner; Visit Provider Internal Medicine Hematology & Oncology
DX: Z12.2 Encounter for screening for malignant neoplasm of respiratory organs (principal); C18.0 Malignant neoplasm of cecum; I67.1 Cerebral aneurysm, nonruptured; Z87.891 Personal history of nicotine dependence; Z90.49 Acquired absence of other specified parts of digestive tract
CPT/HCPCS: 70544; 71271; 74177; Q9967

== ENCOUNTER 2024-11-12 00:57 | Day surgery (SDC) | payer MEDICARE, SELFPAY ==
[2024-11-11 11:16] VITALS: BMI 31.1
--- OUTSIDE RECORDS SUMMARY | 2024-11-12 01:00 | XMS_ITS | Encounter Summary ---
Author Organization [facility] Address [address] [place] [address] Care Team Providers Care Rice Drier Name Role Phone Murray Bourne MD Primary Care Provider Encounter Details Date Type Department Care Team (Latest Contact Info) Description 06/19/2008 Outpatient Historical [facility] JAVIER Willis, Viktoriya Allen MD [address] [place], [place] [id number] [place] [address] Coronary Atherosclerosis of [place] Coronary Artery Social History Tobacco Use Types Packs/Day Years Used Date Smoking Tobacco: Never Assessed Comments Unknown Sex and Gender Information Value Date Recorded Sex Assigned at Not on file 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 - [place] [address] [place] [address] Koby Vinson MD [address] [place] [address] documented as of this encounter Procedures Procedure Name Priority Date/Time Associated Diagnosis Comments XR CHEST PA AND LATERAL 2 VW Routine 06/19/2008 12:37 PM CDT documented in this encounter Results * XR CHEST PA AND LATERAL (06/19/2008 12:37 PM CDT) Anatomical Region Laterality Modality Chest Other 06/19/2008 12:3 7 PM CDT Narrative 06/19/2008 12:42 PM CDT [address] [address] Admit Date: 06/19/2008 YVONNE CUNNINGHAM Sex: F Admit Prov: VIKTORIYA WILLIS Date: 1945 Primary Care Prov: CMRN: [id number] [id number] Ordering Prov: N/A Accession Number: [id number] Interpretation Chest 2 views 06/19/2008. History: Coronary vascular disease. Findings: Comparison study is dated 05/23/2008. Small left pleural effusion has decreased. The left lower lobe atelectasis has resolved . No pneumothorax is seen. The cardiac silhouette is mildly enlarged. . Dictated by: ZOEY COWART 06/19/2008 12:40 Electronically signed by: ZOEY COWART 06/19/2008 12:41 Procedure Note Zoey Cowart - 06/19/[address] [address] Admit Date: 06/19/2008 LENINSARWATYVONNE A Sex: F Admit Prov: VIKTORIYA WILLIS Date: 1945 Primary Care Prov: CMRN: [id number] [id number] [facility] Ordering Prov: N/A Interpretation Chest 2 views 06/19/2008. History: Coronary vascular disease. Findings: Comparison study is dated 05/23/2008. Small left pleuraleffusion has decreased. The left lower lobe atelectasis has resolved . No pneumothorax is seen. The cardiac silhouette is mildly enlarged. . Dictated by: ZOEY COWART 06/19/2008 12:40 Electronically signed by: ZOEY COWART 06/19/2008 12:41 us Viktoriya Willis MD DIAGNOSTIC IMAGING ORDERAB LES Final Result documented in this encounter Visit Diagnoses Diagnosis Coronary atherosclerosis of [place] coronary artery documented in this encounter Care Teams Rice Drier Relationship Specialty Start Date End Date Murray Bourne MD [address] [place] [address] PCP - General Family Practice 05/25/20 documented as of this encounter
--- OUTSIDE RECORDS SUMMARY | 2024-11-12 01:01 | XMS_ITS | Referral Summary ---
Author Organization [facility] Address [address] [place] [address] Care Team Providers Care Metallurgical Or Materials Technician Name Role Phone Unavailable Primary Care Provider Unavailabl e Source Comments [facility],non-owned Affiliates and Associated Physician Practices is amultiple site organization consisting of ambulatory clinics and hospital sitesin [place] and [place]. This disclosure is being madepursuant to the Care Everywhere program and may not contain all information available regarding this patient. Last updated 18.[facility] Social History Tobacco Use Types Packs/Day Years Used Date Smoking Tobacco: Never Assessed Sex and Gender Information Value Date Recorded Sex Assigned at Not on file Gender Identity Not on file Sexual Orientation Not on file Plan of Treatment Not on file
--- OUTSIDE RECORDS SUMMARY | 2024-11-12 01:01 | XMS_ITS | Clinical Summary ---
Author Organization [facility] [place] [address] Address [address] [place] [address] Care Team Providers Care Medical Scribe Name Role Phone Murray Bourne MD Primary Care Provider Allergies No known active allergies Medications diphenhydrAMIN E (ALLERGY RELIEF,DIPHENH YDRAMIN,) 25 mg tablet take 1 Tablet by oral route every 4 - 6 hours as needed 0 0 07/09/20 13 Active aspirin 81 mg tablet take 1 tablet by oral route every day 0 0 07/09/20 13 Active buPROPion (WELLBUTRIN) 100 mg tablet take 1 tablet by oral route 2 times every day 0 0 07/09/20 13 Active PARoxetine (PAXIL) 20 mg tablet take 1 Tablet by oral route every day 0 0 07/09/20 13 Active omega-3 fatty acids-fish oil 340-1,000 mg capsule take 1 by Oral route 2 times every day 0 11/30/19 13 Active acetaminophen ER (ARTHRITIS PAIN RELIEF, ACETAM,) 650 mg 8 hr tablet take 1 tablet (650MG) by oral route every 6 hours as needed 0 12/26/19 13 Active folic acid (FOLVITE) 400 mcg tablet Take 1 tablet (400 mcg total) by mouth daily Active cyanocobalamin (Vitamin B-12) 1,000 mcg tabletIndicati ons:Prevention of Vitamin B12 Deficiency Take 1 tablet (1,000 mcg total) by mouth daily Active gabapentin (NEURONTIN) 300 mg capsule Take 1 capsule (300 mg total) by mouth daily Active ferrous sulfate 325 mg (65 mg of elemental iron) tabletIndicati ons:Iron Deficiency Anemia Take 1 tablet (325 mg total) by mouth 2 (two) times a day Active nitroglycerin (NITROSTAT) 0.4 mg SL tablet DISSOLVE 1 TABLET UNDER THE TONGUE EVERY 5 MINUTES NEEDED FOR CHEST PAIN 25 tablet 04/27/20 23 Active Additional Information Patient not taking.Reported on 07/26/2024 furosemide (LASIX) 20 mg tablet Take 1 tablet (20 mg total) by mouth every morning 05/01/20 23 Active potassium chloride ER 10 mEq CR tablet Take 1 tablet/capsule (10 mEq total) by mouth daily 05/01/[address] (PROTONIX) 40 mg EC tablet TAKE 1 TABLET BY MOUTH EVERY DAY 90 tablet 3 12/26/19 24 Active atorvastatin (LIPITOR) 40 mg tablet TAKE 1 TABLET BY MOUTH EVERY DAY 90 tablet 1 07/19/20 24 Active traMADoL (ULTRAM) 50 mg tablet Take 1 tablet (50 mg total) by mouth every 6 (six) hours as needed for pain Active rivaroxaban (XARELTO) 20 mg tablet Take 1 tablet (20 mg total) by mouth daily with dinner 30 tablet 11 07/29/20 24 Active amLODIPine (NORVASC) 5 mg tablet TAKE 1 TABLET BY MOUTH EVERY DAY 90 tablet 1 08/05/20 24 Active metoprolol tartrate (LOPRESSOR) 25 mg immediate release tablet TAKE 1/2 TABLET TWICE A DAY BY MOUTH 90 tablet 2 10/29/19 25 Active metoprolol tartrate (LOPRESSOR) 25 mg immediate release tablet TAKE 1/2 TABLET BY MOUTH TWICE A DAY 90 tablet 2 01/29/20 24 025 Discontinued Active Problems Problem Noted Date Diagnosed Date 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 Atrial flutter 02/02/2023 S/P CABG (coronary artery bypass graft) 03/14/20 17 Pure hypercholesterolemia 01/13/2015 Overview (12/08/2016): Pure hypercholesterolemia Coronary arteriosclerosis in [place] artery 01/13 Overview (12/08/2016): Coronary arteriosclerosis in [place] artery Encounters Date Type Department Care Team Description 09/16/2024 Telephone [facility] Cardiology [address] [place] [address] Derrick Bird MD from Last 3 Months Surgical History Surgery Date Site/Laterality Comments OTHER SURGICAL HISTORY 3v CABG 2007, left lumpectomy (benign) CORONARY ARTERY BYPASS GRAFT 05/05/2008 - 06/03/2008 GARCIA to LAD, saphenous vein graft to PDA saphenous vein graft to OM Medical History Medical History Date Comments Hx Other Medical GERD, HLD, obes ity, tobacco abuse, anxiety/depr, O Family History Medical History Relation Name Comments Heart attack Father 2 Myocardial Infa rction; Heart failure Father 2 Congestive Hea rt Failure; Cause of : Congestive Heart Failure Heart attack Mother 2 Myocardial Infa rction; Cause of : Myocardial Infarction Relation Name Status Comments Father 1 Alive Father 2 Mother 1 (Age 70) Mother 2 Social History Tobacco Use Types Packs/Day Years Used Date Smoking Tobacco: Every Day Cigarettes Last attempted to quit: 10/03/2016 Smokeless Tobacco: Never Tobacco Cessation:Counseling Given: Not Answered Alcohol Use Standard Drinks/Week Comments Yes 0 (1 standard drink = 0.6 oz pur e alcohol) Comments Unknown Sex and Gender Information Value Date Recorded Sex Assigned at Not on file Legal Sex Female 2:02 AM DIRECTOR OF CONSERVATION Gender Identity Female 04/28/2020 9:32 AM CDT Sexual Orientation Straight 04/28/2020 9: 32 AM CDT Obstetrics History Last Filed Vital Signs Vital Sign Reading Time Taken Comments Blood Pressure 124/68 07/26/2024 10:13 AM DIRECTOR OF CONSERVATION Pulse 63 07/26/2024 10:13 AM DIRECTOR OF CONSERVATION Temperature - - Respiratory Rate 12 03/14/2017 11:29 AM CDT Oxygen Saturation 97% 07/26/2024 10:13 AM DIRECTOR OF CONSERVATION Inhaled Oxygen Concentration - - Weight 93.4 kg (206 lb) 07/26/2024 10:13 AM DIRECTOR OF CONSERVATION Height 170.2 cm (5' 7 ) 07/26/2024 10:13 AM DIRECTOR OF CONSERVATION Body Mass Index 32.26 07/26/2024 10:13 AM DIRECTOR OF CONSERVATION Plan of Treatment Health Maintenance Due Date Last Done Comments Depression Screening 1945 Fall Risk Assessment 1945 Hepatitis C Screening 1945 Osteoporosis Screening-Bone Density Scan 1945 DTaP/Tdap/Td Vaccine (1 - Tdap) 1958 Hepatitis B Screening 1965 Pneumococcal vaccine 65+ (1 of 2 - PCV) 1966 Zoster Vaccine (1 of 2) 1997 Well Visit 65+ 02/15/2012 Influenza Vaccine (#1) 2024 06/14/2018 Insurance [employer] MEDICARE GOLD Care Teams Medical Scribe Relationship Specialty Start Date End Date Murray Bourne MD [address] [facility] [address] [place] [address] [phone] PCP - General Family Practice 05/16/23
--- OUTSIDE RECORDS SUMMARY | 2024-11-12 01:01 | XMS_ITS | Clinical Summary ---
Author Organization [facility] Address [address] [place] [address] Care Team Providers Care Legal Stenographer Name Role Phone Unavailable Primary Care Provider Unavailabl e Source Comments [facility],non-owned Affiliates and Associated Physician Practices is amultiple site organization consisting of ambulatory clinics and hospital sitesin [place], [place], [place] and [place]. This disclosure is being madepursuant to the Care Everywhere program and may not contain all information available regarding this patient. Last updated 18.[facility] Social History Tobacco Use Types Packs/Day Years Used Date Smoking Tobacco: Never Assessed Sex and Gender Information Value Date Recorded Sex Assigned at Not on file Gender Identity Not on file Sexual Orientation Not on file Plan of Treatment Health Maintenance Due Date Last Done Comments BONE DENSITY TESTING 1945 HEPATITIS C SCREENING 02/09/1965 DTAP/TDAP/TD VACCINES (1 - Tdap) 1966 PNEUMOCOCCAL VACCINE 50+ (1 of 1 - PCV) 1997 ZOSTER VACCINE (1 of 2) 1997 Respiratory Syncytial Virus (RSV) Vaccine Pt: or over 60 yrs (1 - 1-dose 75+ series) 2022 COVID-19 VACCINE ( - 2023-2 5 season) 2024 INFLUENZA VACCINE (#1) 2024 DEPRESSION SCREENING 09/04/2024 MEDICARE AWV CALENDAR YEAR 2024 HEPATITIS B VACCINE Aged Out No longe r eligible based on patient's age to complete this topic HIB VACCINE Aged Out No longer eligi ble based on patient's age to complete this topic HPV VACCINE Aged Out No longer eligi ble based on patient's age to complete this topic MENINGOCOCCAL (Group B) VACCINE Aged Out No longer eligible based on patient's age to complete this topic MENINGOCOCCAL VACCINE Aged Out No bart laila eligible based on patient's age to complete this topic
--- OUTSIDE RECORDS SUMMARY | 2024-11-12 01:01 | XMS_ITS | Referral Summary ---
Author Organization [facility] [address] Address [address] [place] [address] Care Team Providers Care Typing Element Machine Operator Name Role Phone Murray Bourne MD Primary Care Provider Encounters Date Type Department Care Team Description 09/16/2024 Telephone [facility] Cardiology [address] [place] [address] Derrick Bird MD from Last 3 Months Allergies No known active allergies Medications diphenhydrAMIN [...] Overview (12/08/2016): Pure hypercholesterolemia Coronary arteriosclerosis in [place] artery 01/13 Overview (12/08/2016): Coronary arteriosclerosis in [place] artery Social History Tobacco Use Types Packs/Day Years Used Date Smoking Tobacco: Every Day Cigarettes Last attempted to quit: 10/03/2016 Smokeless Tobacco: Never Tobacco Cessation:Counseling Given: Not Answered Alcohol Use Standard Drinks/Week Comments Yes 0 (1 standard drink = 0.6 oz pur e alcohol) Comments Unknown Sex and Gender Information Value Date Recorded Sex Assigned at Not on file Legal Sex Female 2:02 AM BONDERITE OPERATOR Gender Identity Female 04/28/2020 9:32 AM CDT Sexual Orientation Straight 04/28/2020 9: 32 AM CDT Last Filed Vital Signs Vital Sign Reading Time Taken Comments Blood Pressure 124/68 07/26/2024 10:13 AM BONDERITE OPERATOR Pulse 63 07/26/2024 10:13 AM BONDERITE OPERATOR Temperature - - Respiratory Rate 12 03/14/2017 11:29 AM CDT Oxygen Saturation 97% 07/26/2024 10:13 AM BONDERITE OPERATOR Inhaled Oxygen Concentration - - Weight 93.4 kg (206 lb) 07/26/2024 10:13 AM BONDERITE OPERATOR Height 170.2 cm (5' 7 ) 07/26/2024 10:13 AM BONDERITE OPERATOR Body Mass Index 32.26 07/26/2024 10:13 AM BONDERITE OPERATOR Plan of Treatment Not on file Insurance [employer] MEDICARE GOLD Care Teams Typing Element Machine Operator Relationship Specialty Start Date End Date Murray Bourne MD [address] [facility] [address] [address] PCP - General Family Practice 05/16/23
--- OUTSIDE RECORDS SUMMARY | 2024-11-12 01:01 | XMS_ITS | Encounter Summary ---
Author Organization [facility] Address 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 Brijesh Bird MD [address] [facility] [address] [place] [address] Viktoriya Gavin MD [address] [place], [place] [id number] [place] [phone] Other and Unspecified Angina Pectoris Social History Tobacco Use Types Packs/Day Years Used Date Smoking Tobacco: Never Assessed Comments Unknown Sex and Gender Information Value Date Recorded Sex Assigned at Not on file 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 Gender Identity Not on file Sexual Orientation Not on file documented as of this encounter Plan of Treatment Upcoming Encounters Date Type Department Care Team (Late st Contact Info) Description 01/06/2025 2:00 PM CDT Office Visit [facility] Oncology and Hematology - Real [address] [facility] [address] [place] [address] Koby Vinson MD [address] [facility] [address] [place] [address] documented as of this encounter Procedures Procedure Name Priority Date/Time Associated Diagnosis Comments POC GLUCOSE Routine 05/24/2008 9:29 AM CDT POC GLUCOSE Routine 05/24/2008 5:48 AM CDT CBC WITH DIFFERENTIAL Timed Study 05/24/2008 4:54 AM CDT MAGNESIUM LEVEL Timed Study 05/24/2008 4:54 AM CDT BASIC METABOLIC PANEL Timed Study 05/24/2008 4:54 AM CDT POC GLUCOSE Routine 05/24/2008 1:17 AM CDT POC GLUCOSE Routine 05/23/2008 8:51 PM CDT POC GLUCOSE Routine 05/23/2008 4:50 PM CDT POC GLUCOSE Routine 05/23/2008 10:06 AM CDT POC GLUCOSE Routine 05/23/2008 5:44 AM CDT XR CHEST PA AND LATERAL 2 VW Routine 05/23/2008 5:20 AM CDT CBC WITH DIFFERENTIAL Routine 05/23/2008 5:00 AM CDT MAGNESIUM LEVEL Routine 05/23/2008 5:00 AM CDT BASIC METABOLIC PANEL Routine 05/23/2008 5:00 AM CDT POC GLUCOSE Routine 05/23/2008 12:46 AM CDT POC GLUCOSE Routine 05/22/2008 9:09 PM CDT POC GLUCOSE Routine 05/22/2008 5:10 PM CDT POC GLUCOSE Routine 05/22/2008 1:54 PM CDT POC GLUCOSE Routine 05/22/2008 11:20 AM CDT POC GLUCOSE Routine 05/22/2008 8:41 AM CDT XR CHEST PA OR AP 1 VW Stat 05/22/2008 8:40 AM CDT POC GLUCOSE Routine 05/22/2008 6:16 AM CDT CBC WITH DIFFERENTIAL Routine 05/22/2008 4:40 AM CDT BASIC METABOLIC PANEL Routine 05/22/2008 4:40 AM CDT POC GLUCOSE Routine 05/22/2008 4:10 AM CDT POC GLUCOSE Routine 05/22/2008 3:18 AM CDT POC GLUCOSE Routine 05/22/2008 2:04 AM CDT POC GLUCOSE Routine 05/22/2008 1:01 AM CDT POC GLUCOSE Routine 05/22/2008 12:02 AM CDT POC GLUCOSE Routine 05/21/2008 11:07 PM CDT POC GLUCOSE Routine 05/21/2008 10:02 PM CDT POC GLUCOSE Routine 05/21/2008 9:14 PM CDT POC GLUCOSE Routine 05/21/2008 8:19 PM CDT POC GLUCOSE Routine 05/21/2008 4:28 PM CDT POC GLUCOSE Routine 05/21/2008 3:04 PM CDT POC GLUCOSE Routine 05/21/2008 1:48 PM CDT BLOOD GAS ARTERIAL Stat 05/21/2008 1: 45 PM CDT POC GLUCOSE Routine 05/21/2008 1:10 PM CDT CVR ONLY, CKMB/CK Timed Study 05/21/2008 12: 30 PM CDT POC GLUCOSE Routine 05/21/2008 12:28 PM CDT POC GLUCOSE Routine 05/21/2008 11:16 AM CDT POC, BLOOD GASES Routine 05/21/2008 11:1 2 AM CDT POC GLUCOSE Routine 05/21/2008 10:18 AM CDT POC GLUCOSE Routine 05/21/2008 9:09 AM CDT POC GLUCOSE Routine 05/21/2008 8:24 AM CDT BLOOD GAS ARTERIAL Stat 05/21/2008 8: 00 AM CDT POC, BLOOD GASES Routine 05/21/2008 6:30 AM CDT POC GLUCOSE Routine 05/21/2008 6:08 AM CDT POC, BLOOD GASES Routine 05/21/2008 5:42 AM CDT XR CHEST PA OR AP 1 VW Timed Study 05/21/2008 5:20 AM CDT POC GLUCOSE Routine 05/21/2008 4:11 AM CDT CVR ONLY, CKMB/CK Timed Study 05/21/2008 4:0 0 AM CDT PT AND APTT Routine 05/21/2008 4:00 AM CDT CBC WITH DIFFERENTIAL Routine 05/21/2008 4:00 AM CDT COMPREHENSIVE METABOLIC PANEL Routine 05/21/2008 4:00 AM CDT POC GLUCOSE Routine 05/21/2008 2:50 AM CDT POC GLUCOSE Routine 05/21/2008 1:10 AM CDT POC GLUCOSE Routine 05/20/2008 11:57 PM CDT POC GLUCOSE Routine 05/20/2008 10:21 PM CDT POC GLUCOSE Routine 05/20/2008 9:24 PM CDT POC GLUCOSE Routine 05/20/2008 8:11 PM CDT CVR ONLY, CKMB/CK Timed Study 05/20/2008 7:2 5 PM CDT POC GLUCOSE Routine 05/20/2008 7:14 PM CDT POTASSIUM LEVEL Stat 05/20/2008 6:40 PM CDT MAGNESIUM LEVEL Stat 05/20/2008 6:40 PM CDT POC GLUCOSE Routine 05/20/2008 6:06 PM CDT POC GLUCOSE Routine 05/20/2008 4:46 PM CDT POTASSIUM LEVEL Timed Study 05/20/2008 4:25 PM CDT POC GLUCOSE Routine 05/20/2008 3:51 PM CDT POC GLUCOSE Routine 05/20/2008 3:16 PM CDT POC, BLOOD GASES Routine 05/20/2008 12:5 8 PM CDT POC GLUCOSE Routine 05/20/2008 12:39 PM CDT POC GLUCOSE Routine 05/20/2008 11:22 AM CDT POC, BLOOD GASES Routine 05/20/2008 11:2 1 AM CDT CVR ONLY, CKMB/CK Stat 05/20/2008 11: 20 AM CDT PT AND APTT Stat 05/20/2008 11:20 AM CDT CBC WITH DIFFERENTIAL Stat 05/20/2008 11:20 AM CDT MAGNESIUM LEVEL Stat 05/20/2008 11:20 AM CDT BASIC METABOLIC PANEL Stat 05/20/2008 11:20 AM CDT XR CHEST PA OR AP 1 VW Stat 05/20/2008 11:00 AM CDT POC, BLOOD GASES Routine 05/20/2008 10:4 8 AM CDT POC, BLOOD GASES Routine 05/20/2008 10:3 5 AM CDT POC, BLOOD GASES Routine 05/20/2008 10:0 5 AM CDT POC, BLOOD GASES Routine 05/20/2008 9:35 AM CDT POC, BLOOD GASES Routine 05/20/2008 9:06 AM CDT POC, BLOOD GASES Routine 05/20/2008 9:02 AM CDT POC, BLOOD GASES Routine 05/20/2008 8:43 AM CDT POC, BLOOD GASES Routine 05/20/2008 7:37 AM CDT TYPE AND CROSSMATCH ADDITIONAL PACKED CELLS Routine 05/20/2008 6:30 AM CDT XR CHEST PA AND LATERAL 2 VW Routine 05/19/2008 10:01 PM CDT URINALYSIS WITH REFLEX CULTURE Routine 05/19/2008 10:00 PM CDT URINALYSIS W/REFLEX MICROSCOPIC Routine 05/19/2008 10:00 PM CDT URINE CULTURE Routine 05/19/2008 10:00 PM CDT CBC WITH DIFFERENTIAL Routine 05/19/2008 4:15 PM CDT POC ACTIVATED CLOTTING TIME Routine 05/19/2008 2:25 PM CDT COMPREHENSIVE METABOLIC PANEL Timed Study 05/19/2008 1:25 PM CDT POC ACTIVATED CLOTTING TIME Routine 05/19/2008 1:19 PM CDT TYPE AND CROSSMATCH Routine 05/19/2008 1 2:48 PM CDT CL CORONARY ANGIOGRAM Routine 05/19/2008 11:59 AM CDT POC ACTIVATED CLOTTING TIME Routine 05/19/2008 11:53 AM CDT POC ACTIVATED CLOTTING TIME Routine 05/19/2008 10:34 AM CDT documented in this encounter Results * (ABNORMAL) POC GLUCOSE (05/24/2008 9:29 AM CDT) GLUCOSE POC 113(H) 65 - 99 mg/dL [facility] Venous blood specimen (specimen) 05/24/2008 9:29 AM CDT 05/24/2008 9:29 AM CDT us Brijesh Bird MD POINT OF CARE TESTING Fin al Result INTERFACE SYSTEM Refer to clinic/hospital department [facility] CLIA# [id number] [address] [place] [address] * (ABNORMAL) POC GLUCOSE (05/24/2008 5:48 AM CDT) COMMENT, GLU POC Notified RN [facility] GLUCOSE POC 117(H) 65 - 99 mg/dL [facility] Venous blood specimen (specimen) 05/24/2008 5:48 AM CDT 05/24/2008 5:48 AM CDT us Brijesh Bird MD POINT OF CARE TESTING Fin al Result INTERFACE SYSTEM Refer to clinic/hospital department [facility] CLIA# [id number] [address] [place] [address] * (ABNORMAL) CBC WITH DIFFERENTIAL (05/24/2008 4:54 AM CDT) HEMOGLOBIN 9.8(L) 11.8 - 14.8 g/dL [facility] MCHC 33.2 31.5 - 35.5 % [facility] WBC 6.4 4.0 - 9.8 K/uL [facility] MCH 30.7 27.2 - 32.6 pg [facility] HEMATOCRIT 29.5(L) 35.5 - 44.0 % [facility] RDW 14.0 11.5 - 14.5 % [facility] RBC 3.19(L) 3.90 - 4.90 M/uL [facility] MCV 92.5 82.0 - 99.0 fL [facility] RDW-STDEV 47.1 37.1 - 48.7 fL [facility] LYMPHOCYTE ABSOLUTE 1.75 0.70 - 4.50 K/uL [facility] BASOPHILS 1 0 - 2 % [facility] BASOPHILS ABSOLUTE 0.05 0.00 - 0.20 K/uL [facility] MONOCYTES 10 3 - 13 % [facility] MONOCYTE ABSOLUTE 0.62 0.10 - 1.30 K/uL [facility] NEUTROPHILS 60 45 - 70 % [facility] NEUTROPHIL ABSOLUTE 3.86 1.90 - 7.00 K/uL [facility] EOSINOPHILS 2 0 - 7 % [facility] EOSINOPHIL ABSOLUTE 0.12 0.00 - 0.70 K/uL [facility] LYMPHOCYTES 27 16 - 45 % [facility] MPV 13.2(H) 9.3 - 12.4 fL [facility] PLATELETS 114(L) 140 - 350 K/uL [facility] Comment: Platelets verified by smear review. Blood specimen (specimen) 05/24/2008 4:54 AM CDT 05/24/2008 7:30 AM CDT us Viktoriya Gavin MD HEMATOLOGY ORDERABLES Edit ed Performing Organization Address City/State/[facility] Co de Phone Number INTERFACE SYSTEM Refer to clinic/hospital department [facility] CLIA# [id number] [address] [place] [address] * (ABNORMAL) BASIC METABOLIC PANEL (05/24/2008 4:54 AM CDT) CHLORIDE 101 96 - 108 mmol/L [facility] GLUCOSE 84 65 - 99 mg/dL [facility] SODIUM 138 135 - 145 mmol/L [facility] CALCIUM 8.4(L) 8.6 - 10.2 mg/dL [facility] CO2 26 22 - 30 mmol/L [facility] CREATININE 0.60 0.51 - 0.95 mg/dL [facility] POTASSIUM 3.4(L) 3.5 - 4.9 mmol/L [facility] BUN 22(H) 6 - 20 mg/dL [facility] GFR, >60 >=60 mL/min/1. 7 sq meter [facility] GFR >60 >=60 mL/min/1. 7 sq meter [facility] Comment: Modification of Diet in Renal Disease (MDRD) study formula. Estimated GFR rate interpretative information for both Americans and non- Americans is available on the [facility] Intranet at: [email or web address] Select: Lab Policies and Procedures Select: Reference Ranges - GFR Blood specimen (specimen) 05/24/2008 4:54 AM CDT 05/24/2008 7:30 AM CDT Viktoriya Gavin MD CHEMISTRY ORDERABLES Edite d Performing Organization Address [facility] de Phone Number INTERFACE SYSTEM Refer to clinic/hospital department [facility] CLIA# [id number] [address] [place] [address] * MAGNESIUM LEVEL (05/24/2008 4:54 AM CDT) MAGNESIUM 2.2 1.5 - 2.5 mg/dL [facility] Blood specimen (specimen) 05/24/2008 4:54 AM CDT 05/24/2008 7:30 AM CDT Vitkoriya Gavin MD CHEMISTRY ORDERABLES Final Result Performing Organization Address [facility] Phone Number INTERFACE SYSTEM Refer to clinic/hospital department [facility] CLIA# [id number] [address] [place] [address] * (ABNORMAL) POC GLUCOSE (05/24/2008 1:17 AM CDT) GLUCOSE POC 108(H) 65 - 99 mg/dL [facility] Venous blood specimen (specimen) 05/24/2008 1:17 AM CDT 05/24/2008 1:17 AM CDT Brijesh Bird MD POINT OF CARE TESTING Fin al Result Performing Organization Address [facility] de Phone Number INTERFACE SYSTEM Refer to clinic/hospital department [facility] CLIA# [id number] [address] [place] [address] * (ABNORMAL) POC GLUCOSE (05/23/2008 8:51 PM CDT) GLUCOSE POC 145(H) 65 - 99 mg/dL [facility] COMMENT, GLU POC Notified RN [facility] Venous blood specimen (specimen) 05/23/2008 8:51 PM CDT 05/23/2008 8:51 PM CDT Brijesh Bird MD POINT OF CARE TESTING Fin al Result Performing Organization Address [facility] de Phone Number INTERFACE SYSTEM Refer to clinic/hospital department [facility] CLIA# [id number] [address] [place] [address] * (ABNORMAL) POC GLUCOSE (05/23/2008 4:50 PM CDT) GLUCOSE POC 121(H) 65 - 99 mg/dL [facility] Venous blood specimen (specimen) 05/23/2008 4:50 PM CDT 05/23/2008 4:50 PM CDT Brijesh Bird MD POINT OF CARE TESTING Fin al Result Performing Organization Address [facility] de Phone Number INTERFACE SYSTEM Refer to clinic/hospital department [facility] CLIA# [id number] [address] [place] [address] * (ABNORMAL) POC GLUCOSE (05/23/2008 10:06 AM CDT) GLUCOSE POC 121(H) 65 - 99 mg/dL [facility] Venous blood specimen (specimen) 05/23/2008 10:06 AM CDT 05/23/2008 10:06 AM CDT Brijesh Bird MD POINT OF CARE TESTING Fin al Result Performing Organization Address [facility] de Phone Number INTERFACE SYSTEM Refer to clinic/hospital department [facility] CLIA# [id number] [address] [place] [address] * (ABNORMAL) POC GLUCOSE (05/23/2008 5:44 AM CDT) COMMENT, GLU POC Notified RN [facility] GLUCOSE POC 122(H) 65 - 99 mg/dL [facility] Venous blood specimen (specimen) 05/23/2008 5:44 AM CDT 05/23/2008 5:44 AM CDT us Brijesh Bird MD POINT OF CARE TESTING Fin al Result Performing Organization Address [facility] de Phone Number INTERFACE SYSTEM Refer to clinic/hospital department [facility] CLIA# [id number] [address] [place] [address] * XR CHEST PA AND LATERAL (05/23/2008 5:20 AM CDT) Anatomical Region Laterality Modality Chest Other 05/23/2008 5:20 AM CDT Narrative 05/23/2008 8:32 AM CDT [facility] [address] [place], [place] [address] Admit Date: 05/19/2008 ABEBE [place] Sex: F Admit Prov: BRIJESH BIRD Date: 1945 Primary Care Prov: CMRN: [id number] Room: [address] [place] [address] SSN: [id number] IMAGING SERVICES Ordering Prov: N/A Accession Number: [id number] Interpretation EXAM: CHEST X-RAY, PA AND LATERAL, 05/23/2008 History: Recent thoracic surgery. Shortness of breath. Findings: Exam is compared to prior exam dated 05/22/2008. The heart and mediastinum are not different. Basilar atelectasis is improved. Small pleural effusions persist. This is greater on the left than the right. Effusions are better visualized on the lateral view. No new infiltrate or other change is seen. There is no pneumothorax. Impression: Basilar atelectasis is slightly improved. No other significant change. Small pleural effusions persist. There is no pneumothorax. . Dictated by: BRIJESH DOVER 05/23/2008 07:39 Electronically signed by: BRIJESH DOVER 05/23/2008 08:31 Transcribed: 05/23/2008 07:59 DKT Procedure Note Brijesh Dover - 05/23/2008 [facility] [address], [place] [address] Admit Date: 05/19/2008 LENIN ABEBE Glez Sex: F Admit Prov: BRIJESH BIRD Date: 1945 Primary Care Prov: CMRN: [id number] Room: [address] [place] [address] SSN: [id number] IMAGING SERVICES Ordering Prov: N/A Interpretation EXAM: CHEST X-RAY, PA AND LATERAL, 05/23/2008 History: Recent thoracic surgery. Shortness of breath. Findings: Exam is compared to prior exam dated 05/22/2008. The heart and mediastinum are not different. Basilar atelectasis is improved. Small pleural effusions persist. This is greater on theleft than the right. Effusions are better visualized on the lateral view. Nonew infiltrate or other change is seen. There is no pneumothorax. Impression: Basilar atelectasis is slightly improved. No other significant change. Small pleural effusions persist. There is no pneumothorax. . Dictated by: BRIJESH DOVER 05/23/2008 07:39 Electronically signed by: BRIJESH DOVER 05/23/2008 08:31 Transcribed: 05/23/2008 07:59 DKT Ary Fragoso NP DIAGNOSTIC IMAGING ORDERABLES Final Result * (ABNORMAL) CBC WITH DIFFERENTIAL (05/23/2008 5:00 AM CDT) RDW 14.3 11.5 - 14.5 % [facility] WBC 7.6 4.0 - 9.8 K/uL [facility] MCH 30.5 27.2 - 32.6 pg [facility] MPV 13.0(H) 9.3 - 12.4 fL [facility] HEMATOCRIT 31.9(L) 35.5 - 44.0 % [facility] RDW-STDEV 48.2 37.1 - 48.7 fL [facility] RBC 3.44(L) 3.90 - 4.90 M/uL [facility] MCHC 32.9 31.5 - 35.5 % [facility] MCV 92.7 82.0 - 99.0 fL [facility] PLATELETS 109(L) 140 - 350 K/uL [facility] HEMOGLOBIN 10.5(L) 11.8 - 14.8 g/dL [facility] LYMPHOCYTES 21 16 - 45 % [facility] LYMPHOCYTE ABSOLUTE 1.62 0.70 - 4.50 K/uL [facility] BASOPHILS 1 0 - 2 % [facility] BASOPHILS ABSOLUTE 0.05 0.00 - 0.20 K/uL [facility] MONOCYTES 10 3 - 13 % [facility] MONOCYTE ABSOLUTE 0.78 0.10 - 1.30 K/uL [facility] NEUTROPHILS 66 45 - 70 % [facility] NEUTROPHIL ABSOLUTE 5.06 1.90 - 7.00 K/uL [facility] EOSINOPHILS 1 0 - 7 % [facility] EOSINOPHIL ABSOLUTE 0.11 0.00 - 0.70 K/uL [facility] Blood specimen (specimen) 05/23/2008 5:00 AM CDT 05/23/2008 6:12 AM CDT Radha CONTI HEMATOLOGY ORDERABLES Edited Performing Organization Address [facility] de Phone Number INTERFACE SYSTEM Refer to clinic/hospital department [facility] CLIA# [id number] [address] [place] [address] * MAGNESIUM LEVEL (05/23/2008 5:00 AM CDT) MAGNESIUM 2.1 1.5 - 2.5 mg/dL [facility] Blood specimen (specimen) 05/23/2008 5:00 AM CDT 05/23/2008 6:10 AM CDT us Radha CONTI CHEMISTRY ORDERABLES Final Resu lt Performing Organization Address [facility] Phone Number INTERFACE SYSTEM Refer to clinic/hospital department [facility] CLIA# [id number] [address] [place] [address] * (ABNORMAL) BASIC METABOLIC PANEL (05/23/2008 5:00 AM CDT) GLUCOSE 107(H) 65 - 99 mg/dL [facility] SODIUM 136 135 - 145 mmol/L [facility] CALCIUM 8.7 8.6 - 10.2 mg/dL [facility] CO2 27 22 - 30 mmol/L [facility] CREATININE 0.73 0.51 - 0.95 mg/dL [facility] POTASSIUM 3.6 3.5 - 4.9 mmol/L [facility] BUN 26(H) 6 - 20 mg/dL [facility] CHLORIDE 102 96 - 108 mmol/L [facility] GFR, >60 >=60 mL/min/1. 7 sq meter [facility] GFR >60 >=60 mL/min/1. 7 sq meter [facility] Comment: Modification of Diet in Renal Disease (MDRD) study formula. Estimated GFR rate interpretative information for both Americans and non- Americans is available on the [facility] Intranet at: [email or web address] Select: Lab Policies and Procedures Select: Reference Ranges - GFR Blood specimen (specimen) 05/23/2008 5:00 AM CDT 05/23/2008 6:10 AM CDT Radha CONTI CHEMISTRY ORDERABLES Edited Performing Organization Address [facility] de Phone Number INTERFACE SYSTEM Refer to clinic/hospital department [facility] CLIA# [id number] [address] [place] [address] * (ABNORMAL) POC GLUCOSE (05/23/2008 12:46 AM CDT) GLUCOSE POC 141(H) 65 - 99 mg/dL [facility] COMMENT, GLU POC Notified GISELL [facility] Venous blood specimen (specimen) 05/23/2008 12:46 AM CDT 05/23/2008 12:46 AM CDT Brijesh Bird MD POINT OF CARE TESTING Fin al Result Performing Organization Address [facility] de Phone Number INTERFACE SYSTEM Refer to clinic/hospital department [facility] CLIA# [id number] [address] [place] [address] * (ABNORMAL) POC GLUCOSE (05/22/2008 9:09 PM CDT) GLUCOSE POC 178(H) 65 - 99 mg/dL [facility] COMMENT, GLU POC Notified GISELL [facility] Venous blood specimen (specimen) 05/22/2008 9:09 PM CDT 05/22/2008 9:09 PM CDT Brijesh Bird MD POINT OF CARE TESTING Fin al Result Performing Organization Address [facility] de Phone Number INTERFACE SYSTEM Refer to clinic/hospital department [facility] CLIA# [id number] [address] [place] [address] * (ABNORMAL) POC GLUCOSE (05/22/2008 5:10 PM CDT) GLUCOSE POC 129(H) 65 - 99 mg/dL [facility] Venous blood specimen (specimen) 05/22/2008 5:10 PM CDT 05/22/2008 5:10 PM CDT Brijesh Bird MD POINT OF CARE TESTING Fin al Result Performing Organization Address [facility] de Phone Number INTERFACE SYSTEM Refer to clinic/hospital department [facility] CLIA# [id number] [address] [place] [address] * (ABNORMAL) POC GLUCOSE (05/22/2008 1:54 PM CDT) GLUCOSE POC 120(H) 65 - 99 mg/dL [facility] Venous blood specimen (specimen) 05/22/2008 1:54 PM CDT 05/22/2008 1:54 PM CDT Brijesh Bird MD POINT OF CARE TESTING Fin al Result Performing Organization Address [facility] de Phone Number INTERFACE SYSTEM Refer to clinic/hospital department [facility] CLIA# [id number] [address] [place] [address] * (ABNORMAL) POC GLUCOSE (05/22/2008 11:20 AM CDT) GLUCOSE POC 120(H) 65 - 99 mg/dL [facility] Venous blood specimen (specimen) 05/22/2008 11:20 AM CDT 05/22/2008 11:20 AM CDT us Brijesh Bird MD POINT OF CARE TESTING Fin al Result Performing Organization Address [facility] de Phone Number INTERFACE SYSTEM Refer to clinic/hospital department [facility] CLIA# [id number] [address] [place] [address] * (ABNORMAL) POC GLUCOSE (05/22/2008 8:41 AM CDT) GLUCOSE POC 112(H) 65 - 99 mg/dL [facility] Venous blood specimen (specimen) 05/22/2008 8:41 AM CDT 05/22/2008 8:41 AM CDT us Brijesh Bird MD POINT OF CARE TESTING Fin al Result Performing Organization Address [facility] de Phone Number INTERFACE SYSTEM Refer to clinic/hospital department [facility] CLIA# [id number] [address] [place] [place] [address] * XR CHEST PA OR AP (05/22/2008 8:40 AM CDT) Anatomical Region Laterality Modality Chest Other 05/22/2008 8:40 AM CDT Narrative 05/22/2008 9:36 AM CDT [facility] [place] [address] [place], [place] [address] Admit Date: 05/19/2008 ABEBE [place] Sex: F Admit Prov: BRIJESH BIRD Date: 1945 Primary Care Prov: CMRN: [id number] Room: [address] [place] [address] SSN: [id number] IMAGING SERVICES Ordering Prov: N/A Accession Number: [id number] Interpretation PORTABLE SEMIERECT CHEST OF 0850 HOURS, 05/22/2008 History: Respiratory distress. Findings: All the tubes and catheters have been removed. There is no pneumothorax. The heart size is mildly enlarged. Opinion: Well-aerated lungs after tube removal. . Dictated by: KANDACE MTZ 05/22/2008 09:09 Electronically signed by: KANDACE MTZ 05/22/2008 09:35 Transcribed: 05/22/2008 09:13 SMM Procedure Note Kandace Mtz MD - 05/22/2008 [facility] [place] [address] [facility] [place], [place] [address] Admit Date: 05/19/2008 ABEBE CUNNINGHAM [place] Sex: F Admit Prov: BRIJESH BIRD Date: 1945 Primary Care Prov: CMRN: [id number] Room: [address] [place] [address] SSN: [id number] IMAGING SERVICES Ordering Prov: N/A Interpretation PORTABLE SEMIERECT CHEST OF 0850 HOURS, 05/22/2008 History: Respiratory distress. Findings: All the tubes and catheters have been removed. There isno pneumothorax. The heart size is mildly enlarged. Opinion: Well-aerated lungs after tube removal. . Dictated by: KANDACE MTZ 05/22/2008 09:09 Electronically signed by: KANDACE MTZ 05/22/2008 09:35 Transcribed: 05/22/2008 09:13 SMM Radha CONTI DIAGNOSTIC IMAGING ORDERABLES F inal Result * (ABNORMAL) POC GLUCOSE (05/22/2008 6:16 AM CDT) GLUCOSE POC 118(H) 65 - 99 mg/dL [facility] Venous blood specimen (specimen) 05/22/2008 6:16 AM CDT 05/22/2008 6:16 AM CDT us Brijesh Bird MD POINT OF CARE TESTING Fin al Result INTERFACE SYSTEM Refer to clinic/hospital department [facility] CLIA# [id number] [address] [place] [address] * (ABNORMAL) BASIC METABOLIC PANEL (05/22/2008 4:40 AM CDT) CHLORIDE 109(H) 96 - 108 mmol/L [facility] GLUCOSE 103(H) 65 - 99 mg/dL [facility] SODIUM 141 135 - 145 mmol/L [facility] CALCIUM 8.6 8.6 - 10.2 mg/dL [facility] CO2 26 22 - 30 mmol/L [facility] CREATININE 0.62 0.51 - 0.95 mg/dL [facility] POTASSIUM 4.1 3.5 - 4.9 mmol/L [facility] BUN 27(H) 6 - 20 mg/dL [facility] GFR, >60 >=60 mL/min/1. 7 sq meter [facility] GFR >60 >=60 mL/min/1. 7 sq meter [facility] Comment: Modification of Diet in Renal Disease (MDRD) study formula. Estimated GFR rate interpretative information for both Americans and non- Americans is available on the [facility] Intranet at: [email or web address] Select: Lab Policies and Procedures Select: Reference Ranges - GFR Blood specimen (specimen) 05/22/2008 4:40 AM CDT 05/22/2008 4:49 AM CDT us Ary Fragoso NP CHEMISTRY ORDERABLES Edited INTERFACE SYSTEM Refer to clinic/hospital department [facility] CLIA# [id number] [address] [place] [address] * (ABNORMAL) CBC WITH DIFFERENTIAL (05/22/2008 4:40 AM CDT) MCV 92.4 82.0 - 99.0 fL [facility] HEMOGLOBIN 10.8(L) 11.8 - 14.8 g/dL [facility] RDW 14.6(H) 11.5 - 14.5 % [facility] WBC 11.2(H) 4.0 - 9.8 K/uL [facility] MCH 30.6 27.2 - 32.6 pg [facility] HEMATOCRIT 32.6(L) 35.5 - 44.0 % [facility] RDW-STDEV 49.3(H) 37.1 - 48.7 fL [facility] RBC 3.53(L) 3.90 - 4.90 M/uL [facility] MCHC 33.1 31.5 - 35.5 % [facility] EOSINOPHILS 0 0 - 7 % [facility] EOSINOPHIL ABSOLUTE 0.01 0.00 - 0.70 K/uL [facility] LYMPHOCYTES 14(L) 16 - 45 % [facility] LYMPHOCYTE ABSOLUTE 1.57 0.70 - 4.50 K/uL [facility] BASOPHILS 0 0 - 2 % [facility] BASOPHILS ABSOLUTE 0.02 0.00 - 0.20 K/uL [facility] MONOCYTES 12 3 - 13 % [facility] MONOCYTE ABSOLUTE 1.33(H) 0.10 - 1.30 K/uL [facility] NEUTROPHILS 74(H) 45 - 70 % [facility] NEUTROPHIL ABSOLUTE 8.27(H) 1.90 - 7.00 K/uL [facility] PLATELETS 95(L) 140 - 350 K/uL [facility] Comment: Platelets verified by smear review. MPV 12.9(H) 9.3 - 12.4 fL [facility] Blood specimen (specimen) 05/22/2008 4:40 AM CDT 05/22/2008 4:49 AM CDT us Ary Fragoso HEAD CHEF HEMATOLOGY ORDERABLES Edited Performing Organization Address [facility] de Phone Number INTERFACE SYSTEM Refer to clinic/hospital department [facility] CLIA# [id number] [address] [place] [address] * (ABNORMAL) POC GLUCOSE (05/22/2008 4:10 AM CDT) GLUCOSE POC 116(H) 65 - 99 mg/dL [facility] Venous blood specimen (specimen) 05/22/2008 4:10 AM CDT 05/22/2008 4:10 AM CDT us Brijesh Bird MD POINT OF CARE TESTING Fin al Result Performing Organization Address [facility] de Phone Number INTERFACE SYSTEM Refer to clinic/hospital department [facility] CLIA# [id number] [address] [place] [address] * (ABNORMAL) POC GLUCOSE (05/22/2008 3:18 AM CDT) GLUCOSE POC 115(H) 65 - 99 mg/dL [facility] Venous blood specimen (specimen) 05/22/2008 3:18 AM CDT 05/22/2008 3:18 AM CDT us Brijesh Bird MD POINT OF CARE TESTING Fin al Result Performing Organization Address [facility] de Phone Number INTERFACE SYSTEM Refer to clinic/hospital department [facility] CLIA# [id number] [address] [place] [address] * (ABNORMAL) POC GLUCOSE (05/22/2008 2:04 AM CDT) GLUCOSE POC 136(H) 65 - 99 mg/dL [facility] Venous blood specimen (specimen) 05/22/2008 2:04 AM CDT 05/22/2008 2:04 AM CDT Brijesh Bird MD POINT OF CARE TESTING Fin al Result Performing Organization Address City/[facility] de Phone Number INTERFACE SYSTEM Refer to clinic/hospital department [facility] CLIA# [id number] [address] [place] [address] * (ABNORMAL) POC GLUCOSE (05/22/2008 1:01 AM CDT) GLUCOSE POC 109(H) 65 - 99 mg/dL [facility] Venous blood specimen (specimen) 05/22/2008 1:01 AM CDT 05/22/2008 1:01 AM CDT us Brijesh Bird MD POINT OF CARE TESTING Fin al Result Performing Organization Address [facility] de Phone Number INTERFACE SYSTEM Refer to clinic/hospital department [facility] CLIA# [id number] [address] [place] [address] * POC GLUCOSE (05/22/2008 12:02 AM CDT) GLUCOSE POC 85 65 - 99 mg/dL [facility] Venous blood specimen (specimen) 05/22/2008 12:02 AM CDT 05/22/2008 12:02 AM CDT Brijesh Bird MD POINT OF CARE TESTING Fin al Result Performing Organization Address [facility] de Phone Number INTERFACE SYSTEM Refer to clinic/hospital department [facility] CLIA# [id number] [address] [place] [address] * (ABNORMAL) POC GLUCOSE (05/21/2008 11:07 PM CDT) GLUCOSE POC 105(H) 65 - 99 mg/dL [facility] Venous blood specimen (specimen) 05/21/2008 11:07 PM CDT 05/21/2008 11:07 PM CDT Brijesh Bird MD POINT OF CARE TESTING Fin al Result Performing Organization Address [facility] de Phone Number INTERFACE SYSTEM Refer to clinic/hospital department [facility] CLIA# [id number] [address] [place] [address] * POC GLUCOSE (05/21/2008 10:02 PM CDT) GLUCOSE POC 99 65 - 99 mg/dL [facility] Venous blood specimen (specimen) 05/21/2008 10:02 PM CDT 05/21/2008 10:02 PM CDT Brijesh Bird MD POINT OF CARE TESTING Fin al Result Performing Organization Address [facility] de Phone Number INTERFACE SYSTEM Refer to clinic/hospital department [facility] CLIA# [id number] [address] [place] [address] * POC GLUCOSE (05/21/2008 9:14 PM CDT) GLUCOSE POC 93 65 - 99 mg/dL [facility] Venous blood specimen (specimen) 05/21/2008 9:14 PM CDT 05/21/2008 9:14 PM CDT Brijesh Bird MD POINT OF CARE TESTING Fin al Result Performing Organization Address [facility] de Phone Number INTERFACE SYSTEM Refer to clinic/hospital department [facility] CLIA# [id number] [address] [place] [address] * (ABNORMAL) POC GLUCOSE (05/21/2008 8:19 PM CDT) GLUCOSE POC 112(H) 65 - 99 mg/dL [facility] Venous blood specimen (specimen) 05/21/2008 8:19 PM CDT 05/21/2008 8:19 PM CDT Brijesh Bird MD POINT OF CARE TESTING Fin al Result Performing Organization Address [facility] de Phone Number INTERFACE SYSTEM Refer to clinic/hospital department [facility] CLIA# [id number] [address] [place] [address] * (ABNORMAL) POC GLUCOSE (05/21/2008 4:28 PM CDT) GLUCOSE POC 104(H) 65 - 99 mg/dL [facility] Venous blood specimen (specimen) 05/21/2008 4:28 PM CDT 05/21/2008 4:28 PM CDT Brijesh Bird MD POINT OF CARE TESTING Fin al Result Performing Organization Address [facility] de Phone Number INTERFACE SYSTEM Refer to clinic/hospital department [facility] CLIA# [id number] [address] [place] [address] * (ABNORMAL) POC GLUCOSE (05/21/2008 3:04 PM CDT) GLUCOSE POC 109(H) 65 - 99 mg/dL [facility] Venous blood specimen (specimen) 05/21/2008 3:04 PM CDT 05/21/2008 3:04 PM CDT Brijesh Bird MD POINT OF CARE TESTING Fin al Result Performing Organization Address [facility] de Phone Number INTERFACE SYSTEM Refer to clinic/hospital department [facility] CLIA# [id number] [address] [place] [address] * (ABNORMAL) POC GLUCOSE (05/21/2008 1:48 PM CDT) GLUCOSE POC 124(H) 65 - 99 mg/dL [facility] Venous blood specimen (specimen) 05/21/2008 1:48 PM CDT 05/21/2008 1:48 PM CDT Brijesh Bird MD POINT OF CARE TESTING Fin al Result Performing Organization Address [facility] de Phone Number INTERFACE SYSTEM Refer to clinic/hospital department [facility] CLIA# [id number] [address] [place] [address] * (ABNORMAL) BLOOD GAS ARTERIAL (05/21/2008 1:45 PM CDT) O2 CONC ARTERIAL 35% [facility] PCO2 ARTERIAL 42 35 - 48 mm Hg [facility] FO2HB ABG 95 94 - 98 % [facility] BASE EXCESS ABG -0.8 -2.0 - 3.0 mmol/L [facility] PO2 ARTERIAL 79(L) 83 - 108 mm Hg [facility] PH ARTERIAL 7.37 7.35 - 7.45 [facility] SO2 ABG 96 95 - 99 % [facility] HCO3 ARTERIAL 24 22 - 26 mmol/L [facility] Arterial blood specimen (specimen) 05/21/2008 1:45 PM CDT 05/21/2008 1:52 PM CDT us Ary Fragoso HEAD CHEF ABG ORDERABLES Final Result Performing Organization Address [facility] de Phone Number INTERFACE SYSTEM Refer to clinic/hospital department [facility] CLIA# [id number] [address] [place] [address] * (ABNORMAL) POC GLUCOSE (05/21/2008 1:10 PM CDT) GLUCOSE POC 123(H) 65 - 99 mg/dL [facility] Venous blood specimen (specimen) 05/21/2008 1:10 PM CDT 05/21/2008 1:10 PM CDT Brijesh Bird MD POINT OF CARE TESTING Fin al Result Performing Organization Address [facility] de Phone Number INTERFACE SYSTEM Refer to clinic/hospital department [facility] CLIA# [id number] [address] [place] [address] * (ABNORMAL) CVR ONLY, CKMB/CK (05/21/2008 12:30 PM CDT) [facility] Signature CKMB 80.9(AA) <=3.8 ng/mL [facility] Comment: Persistent abnormal result CKMB INTERP See Below [facility] Comment: Elevated CKMB,consistent with Myocardial Injury CK 1,451(H) 10 - 145 U/L [facility] CARDIAC RELATIVE INDEX 5.6(H) <=4.0 [facility] Blood specimen (specimen) 05/21/2008 12:30 PM CDT 05/21/2008 12:32 PM CDT us Viktoriya Gavin MD CHEMISTRY ORDERABLES Edite d Performing Organization Address [facility] de Phone Number INTERFACE SYSTEM Refer to clinic/hospital department [facility] CLIA# [id number] [address] [place] [address] * (ABNORMAL) POC GLUCOSE (05/21/2008 12:28 PM CDT) GLUCOSE POC 106(H) 65 - 99 mg/dL [facility] Venous blood specimen (specimen) 05/21/2008 12:28 PM CDT 05/21/2008 12:28 PM CDT Brijesh Bird MD POINT OF CARE TESTING Fin al Result Performing Organization Address [facility] de Phone Number INTERFACE SYSTEM Refer to clinic/hospital department [facility] CLIA# [id number] [address] [place] [address] * (ABNORMAL) POC GLUCOSE (05/21/2008 11:16 AM CDT) [facility] GLUCOSE POC 137(H) 65 - 99 mg/dL [facility] Venous blood specimen (specimen) 05/21/2008 11:16 AM CDT 05/21/2008 11:16 AM CDT Brijesh Bird MD POINT OF CARE TESTING Fin al Result Performing Organization Address [facility] de Phone Number INTERFACE SYSTEM Refer to clinic/hospital department [facility] CLIA# [id number] [address] [place] [address] * (ABNORMAL) POC RT, BLOOD GASES (05/21/2008 11:12 AM CDT) [facility] Signature PO2 ARTERIAL 57(L) 83 - 108 mm Hg [facility] SODIUM POC 137 135 - 145 mmol/L [facility] PH ARTERIAL 7.38 7.35 - 7.45 [facility] BASE EXCESS ABG -1.3 -2.0 - 3.0 mmol/L [facility] HEMATOCRIT POC 35.0(L) 35.5 - 44.0 % [facility] O2 SAT EST ABG POC 89(L) 95 - 99 % [facility] POTASSIUM POC 4.3 3.5 - 4.9 mmol/L [facility] PCO2 ARTERIAL 40 35 - 48 mm Hg [facility] HCO3 ARTERIAL 24 22 - 26 mmol/L [facility] COMMENT, GASES POC RN NOTIFIED [facility] PATIENT'S TEMPERATURE 37.0 Degree C [facility] CALICUM IONIZED, WHOLE BLOOD 4.77 4.76 - 5.16 mg/dL [facility] Blood specimen (specimen) 05/21/2008 11:12 AM CDT 05/21/2008 11:12 AM CDT Brijesh Bird MD CHEMISTRY ORDERABLES Rosenda l Result Performing Organization Address [facility] Phone Number INTERFACE SYSTEM Refer to clinic/hospital department [facility] CLIA# [id number] [address] [place] [address] * (ABNORMAL) POC GLUCOSE (05/21/2008 10:18 AM CDT) GLUCOSE POC 148(H) 65 - 99 mg/dL [facility] Venous blood specimen (specimen) 05/21/2008 10:18 AM CDT 05/21/2008 10:18 AM CDT Brijesh Bird MD POINT OF CARE TESTING Fin al Result Performing Organization Address [facility] de Phone Number INTERFACE SYSTEM Refer to clinic/hospital department [facility] CLIA# [id number] [address] [place] [address] * (ABNORMAL) POC GLUCOSE (05/21/2008 9:09 AM CDT) GLUCOSE POC 143(H) 65 - 99 mg/dL [facility] Venous blood specimen (specimen) 05/21/2008 9:09 AM CDT 05/21/2008 9:09 AM CDT Brijesh Bird MD POINT OF CARE TESTING Fin al Result Performing Organization Address [facility] de Phone Number INTERFACE SYSTEM Refer to clinic/hospital department [facility] CLIA# [id number] [address] [place] [address] * (ABNORMAL) POC GLUCOSE (05/21/2008 8:24 AM CDT) [facility] GLUCOSE POC 145(H) 65 - 99 mg/dL [facility] Venous blood specimen (specimen) 05/21/2008 8:24 AM CDT 05/21/2008 8:24 AM CDT us Brijesh Bird MD POINT OF CARE TESTING Fin al Result Performing Organization Address [facility] de Phone Number INTERFACE SYSTEM Refer to clinic/hospital department [facility] CLIA# [id number] [address] [place] [address] * (ABNORMAL) BLOOD GAS ARTERIAL (05/21/2008 8:00 AM CDT) [facility] O2 CONC ARTERIAL 55% [facility] BASE EXCESS ABG -2.5(L) -2.0 - 3.0 mmol/L [facility] PO2 ARTERIAL 69(L) 83 - 108 mm Hg [facility] PH ARTERIAL 7.33(L) 7.35 - 7.45 [facility] O2 SAT EST ARTERIAL 92(L) 94 - 98 % [facility] HCO3 ARTERIAL 23 22 - 26 mmol/L [facility] PCO2 ARTERIAL 46 35 - 48 mm Hg [facility] Arterial blood specimen (specimen) 05/21/2008 8:00 AM CDT 05/21/2008 8:13 AM CDT us Viktoriya Gavin MD ABG ORDERABLES Final Resu lt Performing Organization Address [facility] de Phone Number INTERFACE SYSTEM Refer to clinic/hospital department [facility] CLIA# [id number] [address] [place] [address] * (ABNORMAL) POC RT, BLOOD GASES (05/21/2008 6:30 AM CDT) PCO2 ARTERIAL 44 35 - 48 mm Hg [facility] FIO2 55 [facility] HCO3 ARTERIAL 21(L) 22 - 26 mmol/L [facility] PATIENT'S TEMPERATURE 37.0 Degree C [facility] CALICUM IONIZED, WHOLE BLOOD 4.77 4.76 - 5.16 mg/dL [facility] PEEP POC 5 [facility] PO2 ARTERIAL 63(L) 83 - 108 mm Hg [facility] SODIUM POC 133(L) 135 - 145 mmol/L [facility] OXYGEN MODE SIMV/PS [facility] PH ARTERIAL 7.29(L) 7.35 - 7.45 [facility] BASE EXCESS ABG -5.2(L) -2.0 - 3.0 mmol/L [facility] COMMENT, GASES POC RN/MD NOTIFIED [facility] HEMATOCRIT POC 37.0 35.5 - 44.0 % [facility] O2 SAT EST ABG POC 89(L) 95 - 99 % [facility] POTASSIUM POC 4.6 3.5 - 4.9 mmol/L [facility] Blood specimen (specimen) 05/21/2008 6:30 AM CDT 05/21/2008 6:30 AM CDT Brijesh Bird MD CHEMISTRY ORDERABLES Rosenda chavez Result INTERFACE SYSTEM Refer to clinic/hospital department [facility] CLIA# [id number] [address] [place] [address] * (ABNORMAL) POC GLUCOSE (05/21/2008 6:08 AM CDT) GLUCOSE POC 133(H) 65 - 99 mg/dL [facility] Venous blood specimen (specimen) 05/21/2008 6:08 AM CDT 05/21/2008 6:08 AM CDT us Brijesh Bird MD POINT OF CARE TESTING Fin al Result INTERFACE SYSTEM Refer to clinic/hospital department [facility] CLIA# [id number] [address] [place] [place], [place] [address] * (ABNORMAL) POC RT, BLOOD GASES (05/21/2008 5:42 AM CDT) FIO2 55 [facility] HCO3 ARTERIAL 21(L) 22 - 26 mmol/L [facility] PATIENT'S TEMPERATURE 37.0 Degree C [facility] CALICUM IONIZED, WHOLE BLOOD 4.73(L) 4.76 - 5.16 mg/dL [facility] PH ARTERIAL 7.26(L) 7.35 - 7.45 [facility] SODIUM POC 134(L) 135 - 145 mmol/L [facility] COMMENT, GASES POC RN/MD NOTIFIED [facility] PCO2 ARTERIAL 47 35 - 48 mm Hg [facility] BASE EXCESS ABG -6.0(L) -2.0 - 3.0 mmol/L [facility] HEMATOCRIT POC 38.0 35.5 - 44.0 % [facility] PO2 ARTERIAL 64(L) 83 - 108 mm Hg [facility] O2 SAT EST ABG POC 88(L) 95 - 99 % [facility] POTASSIUM POC 4.8 3.5 - 4.9 mmol/L [facility] Blood specimen (specimen) 05/21/2008 5:42 AM CDT 05/21/2008 5:42 AM CDT us Brijesh Bird MD CHEMISTRY ORDERABLES Rosenda chavez Result INTERFACE SYSTEM Refer to clinic/hospital department [facility] CLIA# [id number] [address] [place] [address] * XR CHEST PA OR AP (05/21/2008 5:20 AM CDT) Anatomical Region Laterality Modality Chest Other 05/21/2008 5:20 AM CDT Narrative 05/21/2008 9:31 AM CDT [facility] [address] [place], [place] [address] Admit Date: 05/19/2008 [place] Sex: F Admit Prov: BRIJESH BIRD Date: 1945 Primary Care Prov: CMRN: [id number] Room: [address] [place] [address] SSN: [id number] IMAGING SERVICES Ordering Prov: N/A Accession Number: [id number] Interpretation CHEST SINGLE VIEW 05/21/08 AT 0530 HOURS Clinical History: Followup coronary artery bypass grafting. AP portable semi upright view of the chest on 05/21/08 is compared to 05/20/08. An endotracheal tube is noted with the tip projected several centimeters above the alessandra. A nasogastric tube is noted coursing below the gastroesophageal junction. A left-sided chest tube and 2 mediastinal drainage tubes are noted. A right internal jugular central line is noted with the tip projected over the right main pulmonary artery. The patient is status post coronary artery bypass grafting. The heart is enlarged but stable in size. Pulmonary vasculature is not congested. Slightly progressive bibasilar infiltrate is noted with partial clearing of the left perihilar atelectasis. No effusions or pneumothoraces are evident. IMPRESSION: Stable position of support tubes and catheters. Mild bibasilar infiltrate and atelectasis slightly progressive. . Dictated by: JOCELYN RASMUSSEN 05/21/2008 08:35 Electronically signed by: JOCELYN RASMUSSEN05/21/2008 09:30 Transcribed: 05/21/2008 09:01 Procedure Note Jocelyn Rasmussen MD - 05/21/2008 [facility] [address] [place], [place] [address] Admit Date: 05/19/2008 ABEBE [place] Sex: F Admit Prov: BRIJESH BIRD Date: 1945 Primary Care Prov: CMRN: [id number] Room: [address] [place] [address] SSN: [id number] IMAGING SERVICES Ordering Prov: N/A Interpretation CHEST SINGLE VIEW 05/21/08 AT 0530 HOURS Clinical History: Followup coronary artery bypass grafting. AP portable semi upright view of the chest on 05/21/08 is comparedto 05/20/08. An endotracheal tube is noted with the tip projectedseveral centimeters above the alessandra. A nasogastric tube is noted coursingbelow the gastroesophageal junction. A left-sided chest tube and 2mediastinal drainage tubes are noted. A right internal jugular central line isnoted with the tip projected over the right main pulmonary artery. Thepatient is status post coronary artery bypass grafting. The heart is enlargedbut stable in size. Pulmonary vasculature is not congested. Slightly progressive bibasilar infiltrate is noted with partial clearing ofthe left perihilar atelectasis. No effusions or pneumothoraces are evident. IMPRESSION: Stable position of support tubes and catheters. Mild bibasilar infiltrate and atelectasis slightly progressive. . Dictated by: JOCELYN RASMUSSEN 05/21/2008 08:35 Electronically signed by: JOCELYN RASMUSSEN05/21/2008 09:30 Transcribed: 05/21/2008 09:01 us Viktoriya Gavin MD DIAGNOSTIC IMAGING ORDERAB LES Final Result * (ABNORMAL) POC GLUCOSE (05/21/2008 4:11 AM CDT) GLUCOSE POC 139(H) 65 - 99 mg/dL [facility] Venous blood specimen (specimen) 05/21/2008 4:11 AM CDT 05/21/2008 4:11 AM CDT us Brijesh Bird MD POINT OF CARE TESTING Fin al Result Performing Organization Address [facility]/ZIP Co de Phone Number INTERFACE SYSTEM Refer to clinic/hospital department [facility] CLIA# [id number] [address] [place], [place] [address] * (ABNORMAL) PT AND APTT (05/21/2008 4:00 AM CDT) INR 1.2(H) 0.9 - 1.1 [facility] Comment: INR Therapeutic Range: Adult: 2.0 - 3.0 for pulmonary embolism or prophylaxis against venous thrombosis or systemic embolization. 2.0 - 3.0 for patients with tissue heart valves. 2.5 - 3.5 for patients with mechanical heart valves or post NM. Pediatric (12 years and under): 1.5 - 3.0 Although the target range in children is not well established, INR values of 1.5 - 3.0 are recommended for most patients. Higher values have been used in children with prosthetic cardiac valves and hereditary clotting disorders. (<3 days) therapeutic ranges have not been established. PROTIME 14.9 12.7 - 15.1 Seconds [facility] PTT 27.0 24.4 - 36.4 Seconds [facility] Comment: PTT Therapeutic Range: Heparin Level PTT (seconds) <0.10 units/mL <53 0.10 - 0.30 units/mL 53 - 67 0.30 - 0.70 units/mL* 67 - 95* 0.70 - 1.00 units/mL 95 - 116 *corresponds to therapeutic range for unfractionated heparin Blood specimen (specimen) 05/21/2008 4:00 AM CDT 05/21/2008 4:21 AM CDT us Viktoriya Gavin MD HEMATOLOGY ORDERABLES Edit ed INTERFACE SYSTEM Refer to clinic/hospital department [facility] CLIA# [id number] [address] [place] [address] * (ABNORMAL) COMPREHENSIVE METABOLIC PANEL (05/21/2008 4:00 AM CDT) CREATININE 0.82 0.51 - 0.95 mg/dL [facility] ALT 38(H) 0 - 31 U/L [facility] SODIUM 140 135 - 145 mmol/L [facility] ALKALINE PHOSPHATASE 57 35 - 104 U/L [facility] CO2 22 22 - 30 mmol/L [facility] BILIRUBIN TOTAL 0.2 0.2 - 1.0 mg/dL [facility] POTASSIUM 4.7 3.5 - 4.9 mmol/L [facility] TOTAL PROTEIN 5.3(L) 6.3 - 8.6 g/dL [facility] GLUCOSE 138(H) 65 - 99 mg/dL [facility] AST 155(H) 12 - 32 U/L [facility] BUN 21(H) 6 - 20 mg/dL [facility] CALCIUM 8.0(L) 8.6 - 10.2 mg/dL [facility] ALBUMIN 3.3(L) 3.4 - 4.8 g/dL [facility] CHLORIDE 111(H) 96 - 108 mmol/L [facility] GFR, >60 >=60 mL/min/1. 7 sq meter [facility] GFR >60 >=60 mL/min/1. 7 sq meter [facility] Comment: Modification of Diet in Renal Disease (MDRD) study formula. Estimated GFR rate interpretative information for both Americans and non- Americans is available on the [facility]an[facility] at: [email or web address] Select: Lab Policies and Procedures Select: Reference Ranges - GFR Blood specimen (specimen) 05/21/2008 4:00 AM CDT 05/21/2008 4:21 AM CDT Viktoriya Gavin MD CHEMISTRY ORDERABLES Edite d Performing Organization Address [facility] Phone Number INTERFACE SYSTEM Refer to clinic/hospital department [facility] CLIA# [id number] [address] [place] [address] * (ABNORMAL) CVR ONLY, CKMB/CK (05/21/2008 4:00 AM CDT) Pathologist [facility] CKMB 137.4(AA) <=3.8 ng/mL [facility] Comment: Persistent abnormal result CKMB INTERP See Below [facility] Comment: Elevated CKMB,consistent with Myocardial Injury CK 1,974(H) 10 - 145 U/L [facility] CARDIAC RELATIVE INDEX 7.0(H) <=4.0 [facility] Blood specimen (specimen) 05/21/2008 4:00 AM CDT 05/21/2008 4:21 AM CDT Viktoriya Gavin MD CHEMISTRY ORDERABLES Edite d Performing Organization Address [facility] de Phone Number INTERFACE SYSTEM Refer to clinic/hospital department [facility] CLIA# [id number] [address] [place] [address] * (ABNORMAL) CBC WITH DIFFERENTIAL (05/21/2008 4:00 AM CDT) Pathologist [facility] HEMATOCRIT 38.4 35.5 - 44.0 % [facility] RDW-STDEV 49.7(H) 37.1 - 48.7 fL [facility] RBC 4.16 3.90 - 4.90 M/uL [facility] MCHC 33.3 31.5 - 35.5 % [facility] MCV 92.3 82.0 - 99.0 fL [facility] PLATELETS 129(L) 140 - 350 K/uL [facility] HEMOGLOBIN 12.8 11.8 - 14.8 g/dL [facility] RDW 14.7(H) 11.5 - 14.5 % [facility] WBC 14.4(H) 4.0 - 9.8 K/uL [facility] MCH 30.8 27.2 - 32.6 pg [facility] MPV 13.0(H) 9.3 - 12.4 fL [facility] MONOCYTES 9 3 - 13 % [facility] MONOCYTE ABSOLUTE 1.34(H) 0.10 - 1.30 K/uL [facility] NEUTROPHILS 86(H) 45 - 70 % [facility] NEUTROPHIL ABSOLUTE 12.44(H) 1.90 - 7.00 K/uL [facility] EOSINOPHILS 0 0 - 7 % [facility] EOSINOPHIL ABSOLUTE 0.00 0.00 - 0.70 K/uL [facility] LYMPHOCYTES 4(L) 16 - 45 % [facility] LYMPHOCYTE ABSOLUTE 0.62(L) 0.70 - 4.50 K/uL [facility] BASOPHILS 0 0 - 2 % [facility] BASOPHILS ABSOLUTE 0.01 0.00 - 0.20 K/uL [facility] Blood specimen (specimen) 05/21/2008 4:00 AM CDT 05/21/2008 4:21 AM CDT us Viktoriya Gavin MD HEMATOLOGY ORDERABLES Edit ed INTERFACE SYSTEM Refer to clinic/hospital department [facility] CLIA# [id number] [address] [place] [address] * (ABNORMAL) POC GLUCOSE (05/21/2008 2:50 AM CDT) GLUCOSE POC 155(H) 65 - 99 mg/dL [facility] Venous blood specimen (specimen) 05/21/2008 2:50 AM CDT 05/21/2008 2:50 AM CDT Brijesh Bird MD POINT OF CARE TESTING Fin al Result Performing Organization Address [facility] de Phone Number INTERFACE SYSTEM Refer to clinic/hospital department [facility] CLIA# [id number] [address] [place] [address] * (ABNORMAL) POC GLUCOSE (05/21/2008 1:10 AM CDT) GLUCOSE POC 159(H) 65 - 99 mg/dL [facility] Venous blood specimen (specimen) 05/21/2008 1:10 AM CDT 05/21/2008 1:10 AM CDT Brijesh Bird MD POINT OF CARE TESTING Fin al Result Performing Organization Address [facility] de Phone Number INTERFACE SYSTEM Refer to clinic/hospital department [facility] CLIA# [id number] [address] [place] [address] * (ABNORMAL) POC GLUCOSE (05/20/2008 11:57 PM CDT) GLUCOSE POC 158(H) 65 - 99 mg/dL [facility] Venous blood specimen (specimen) 05/20/2008 11:57 PM CDT 05/20/2008 11:57 PM CDT us Brijesh Bird MD POINT OF CARE TESTING Fin al Result Performing Organization Address [facility] de Phone Number INTERFACE SYSTEM Refer to clinic/hospital department [facility] CLIA# [id number] [address] [place] [place] [address] * (ABNORMAL) POC GLUCOSE (05/20/2008 10:21 PM CDT) GLUCOSE POC 156(H) 65 - 99 mg/dL [facility] Venous blood specimen (specimen) 05/20/2008 10:21 PM CDT 05/20/2008 10:21 PM CDT us Brijesh Bird MD POINT OF CARE TESTING Fin al Result Performing Organization Address [facility] de Phone Number INTERFACE SYSTEM Refer to clinic/hospital department [facility] CLIA# [id number] [address] [place] [address] * (ABNORMAL) POC GLUCOSE (05/20/2008 9:24 PM CDT) GLUCOSE POC 145(H) 65 - 99 mg/dL [facility] Venous blood specimen (specimen) 05/20/2008 9:24 PM CDT 05/20/2008 9:24 PM CDT Brijesh Bird MD POINT OF CARE TESTING Fin al Result Performing Organization Address [facility] de Phone Number INTERFACE SYSTEM Refer to clinic/hospital department [facility] CLIA# [id number] [address] [place] [address] * (ABNORMAL) POC GLUCOSE (05/20/2008 8:11 PM CDT) GLUCOSE POC 148(H) 65 - 99 mg/dL [facility] Venous blood specimen (specimen) 05/20/2008 8:11 PM CDT 05/20/2008 8:11 PM CDT us Brijesh Bird MD POINT OF CARE TESTING Fin al Result Performing Organization Address [facility] de Phone Number INTERFACE SYSTEM Refer to clinic/hospital department [facility] CLIA# [id number] [address] [place] [address] * (ABNORMAL) CVR ONLY, CKMB/CK (05/20/2008 7:25 PM CDT) CKMB 166.9(AA) <=3.8 ng/mL [facility] Comment: Persistent abnormal result CKMB INTERP See Below [facility] Comment: Elevated CKMB,consistent with Myocardial Injury CK 2,169(H) 10 - 145 U/L [facility] CARDIAC RELATIVE INDEX 7.7(H) <=4.0 [facility] Blood specimen (specimen) 05/20/2008 7:25 PM CDT 05/20/2008 7:31 PM CDT us Viktoriya Gavin MD CHEMISTRY ORDERABLES Edite d Performing Organization Address [facility] Phone Number INTERFACE SYSTEM Refer to clinic/hospital department [facility] CLIA# [id number] [address] [place] [address] * (ABNORMAL) POC GLUCOSE (05/20/2008 7:14 PM CDT) GLUCOSE POC 154(H) 65 - 99 mg/dL [facility] Venous blood specimen (specimen) 05/20/2008 7:14 PM CDT 05/20/2008 7:14 PM CDT us Brijesh Bird MD POINT OF CARE TESTING Fin al Result Performing Organization Address [facility] de Phone Number INTERFACE SYSTEM Refer to clinic/hospital department [facility] CLIA# [id number] [address] [place] [address] * MAGNESIUM LEVEL (05/20/2008 6:40 PM CDT) MAGNESIUM 2.4 1.5 - 2.5 mg/dL [facility] Blood specimen (specimen) 05/20/2008 6:40 PM CDT 05/20/2008 6:48 PM CDT Viktoriya Gavin MD CHEMISTRY ORDERABLES Final Result Performing Organization Address [facility] Phone Number INTERFACE SYSTEM Refer to clinic/hospital department [facility] CLIA# [id number] [address] [place] [address] * POTASSIUM LEVEL (05/20/2008 6:40 PM CDT) POTASSIUM 4.9 3.5 - 4.9 mmol/L [facility] Blood specimen (specimen) 05/20/2008 6:40 PM CDT 05/20/2008 6:48 PM CDT Viktoriya Gavin MD CHEMISTRY ORDERABLES Final Result Performing Organization Address [facility] Phone Number INTERFACE SYSTEM Refer to clinic/hospital department [facility] CLIA# [id number] [address] [place] [address] * (ABNORMAL) POC GLUCOSE (05/20/2008 6:06 PM CDT) GLUCOSE POC 146(H) 65 - 99 mg/dL [facility] Venous blood specimen (specimen) 05/20/2008 6:06 PM CDT 05/20/2008 6:06 PM CDT Brijesh Bird MD POINT OF CARE TESTING Fin al Result Performing Organization Address [facility] de Phone Number INTERFACE SYSTEM Refer to clinic/hospital department [facility] CLIA# [id number] [address] [place] [address] * (ABNORMAL) POC GLUCOSE (05/20/2008 4:46 PM CDT) GLUCOSE POC 143(H) 65 - 99 mg/dL [facility] Venous blood specimen (specimen) 05/20/2008 4:46 PM CDT 05/20/2008 4:46 PM CDT us Brijesh Bird MD POINT OF CARE TESTING Fin al Result Performing Organization Address [facility] Phone Number INTERFACE SYSTEM Refer to clinic/hospital department [facility] CLIA# [id number] [address] [place] [address] * POTASSIUM LEVEL (05/20/2008 4:25 PM CDT) POTASSIUM 4.5 3.5 - 4.9 mmol/L [facility] Blood specimen (specimen) 05/20/2008 4:25 PM CDT 05/20/2008 4:35 PM CDT us Viktoriya Gavin MD CHEMISTRY ORDERABLES Final Result Performing Organization Address [facility] Phone Number INTERFACE SYSTEM Refer to clinic/hospital department [facility] CLIA# [id number] [address] [place] [address] * (ABNORMAL) POC GLUCOSE (05/20/2008 3:51 PM CDT) GLUCOSE POC 146(H) 65 - 99 mg/dL [facility] Venous blood specimen (specimen) 05/20/2008 3:51 PM CDT 05/20/2008 3:51 PM CDT us Brijesh Bidr MD POINT OF CARE TESTING Fin al Result Performing Organization Address [facility]/State/ZIP Co de Phone Number INTERFACE SYSTEM Refer to clinic/hospital department [facility] CLIA# [id number] [address] [place] [address] * (ABNORMAL) POC GLUCOSE (05/20/2008 3:16 PM CDT) [facility] Signature GLUCOSE POC 149(H) 65 - 99 mg/dL [facility] Venous blood specimen (specimen) 05/20/2008 3:16 PM CDT 05/20/2008 3:16 PM CDT us Brijesh Bird MD POINT OF CARE TESTING Fin al Result INTERFACE SYSTEM Refer to clinic/hospital department [facility] CLIA# [id number] [address] [place] [address] * (ABNORMAL) POC RT, BLOOD GASES (05/20/2008 12:58 PM CDT) [facility] BASE EXCESS VENOUS -7.6(L) -2.0 - 3.0 mmol/L [facility] HEMATOCRIT POC 26.0(L) 35.5 - 44.0 % [facility] PEEP POC 5 [facility] O2 SAT EST MVBG POC 61 40 - 70 % [facility] POTASSIUM POC 3.0(L) 3.5 - 4.9 mmol/L [facility] OXYGEN MODE SIMV [facility] PCO2 VENOUS 29(L) 38 - 50 mm Hg [facility] HCO3 MIXED VENOUS 17(L) 22 - 29 mmol/L [facility] COMMENT, GASES POC RN AWARE [facility] FIO2 50 [facility] PH MVBG 7.37 7.32 - 7.43 [facility] PATIENT'S TEMPERATURE 37.0 Degree C [facility] CALICUM IONIZED, WHOLE BLOOD 5.09 4.76 - 5.16 mg/dL [facility] PO2 MVBG 33 25 - 40 mm Hg [facility] TIDAL VOLUME POC 700 [facility] SODIUM POC 145 135 - 145 mmol/L [facility] Blood specimen (specimen) 05/20/2008 12:58 PM CDT 05/20/2008 12:58 PM CDT Brijesh Bird MD CHEMISTRY ORDERABLES Rosenda l Result Performing Organization Address [facility] Phone Number INTERFACE SYSTEM Refer to clinic/hospital department [facility] CLIA# [id number] [address] [place] [address] * (ABNORMAL) POC GLUCOSE (05/20/2008 12:39 PM CDT) GLUCOSE POC 121(H) 65 - 99 mg/dL [facility] Venous blood specimen (specimen) 05/20/2008 12:39 PM CDT 05/20/2008 12:39 PM CDT Brijesh Bird MD POINT OF CARE TESTING Fin al Result Performing Organization Address [facility] de Phone Number INTERFACE SYSTEM Refer to clinic/hospital department [facility] CLIA# [id number] [address] [place] [address] * (ABNORMAL) POC GLUCOSE (05/20/2008 11:22 AM CDT) GLUCOSE POC 120(H) 65 - 99 mg/dL [facility] Venous blood specimen (specimen) 05/20/2008 11:22 AM CDT 05/20/2008 11:22 AM CDT Brijesh Bird MD POINT OF CARE TESTING Fin al Result INTERFACE SYSTEM Refer to clinic/hospital department [facility] CLIA# [id number] [address] [place] [address] * (ABNORMAL) POC RT, BLOOD GASES (05/20/2008 11:21 AM CDT) FIO2 60 [facility] PATIENT'S TEMPERATURE 37.0 Degree C [facility] POTASSIUM POC 4.1 3.5 - 4.9 mmol/L [facility] CALICUM IONIZED, WHOLE BLOOD 4.85 4.76 - 5.16 mg/dL [facility] PEEP POC 5 [facility] PO2 ARTERIAL 109(H) 83 - 108 mm Hg [facility] COMMENT, GASES POC RN AWARE [facility] OXYGEN MODE SIMV/PS [facility] PH ARTERIAL 7.41 7.35 - 7.45 [facility] BASE EXCESS ABG -0.4 -2.0 - 3.0 mmol/L [facility] O2 SAT EST ABG POC 98 95 - 99 % [facility] HEMATOCRIT POC 31.0(L) 35.5 - 44.0 % [facility] SODIUM POC 134(L) 135 - 145 mmol/L [facility] PCO2 ARTERIAL 38 35 - 48 mm Hg [facility] HCO3 ARTERIAL 24 22 - 26 mmol/L [facility] Blood specimen (specimen) 05/20/2008 11:21 AM CDT 05/20/2008 11:21 AM CDT Brijesh Bird MD CHEMISTRY ORDERABLES Rosenda chavez Result INTERFACE SYSTEM Refer to clinic/hospital department [facility] CLIA# [id number] [address] [place] [address] * (ABNORMAL) PT AND APTT (05/20/2008 11:20 AM CDT) PROTIME 17.3(H) 12.7 - 15.1 Seconds [facility] INR 1.4(H) 0.9 - 1.1 [facility] Comment: INR Therapeutic Range: Adult: 2.0 - 3.0 for pulmonary embolism or prophylaxis against venous thrombosis or systemic embolization. 2.0 - 3.0 for patients with tissue heart valves. 2.5 - 3.5 for patients with mechanical heart valves or post NM. Pediatric (12 years and under): 1.5 - 3.0 Although the target range in children is not well established, INR values of 1.5 - 3.0 are recommended for most patients. Higher values have been used in children with prosthetic cardiac valves and hereditary clotting disorders. Drift (<3 days) therapeutic ranges have not been established. PTT 31.9 24.4 - 36.4 Seconds [facility] Comment: PTT Therapeutic Range: Heparin Level PTT (seconds) <0.10 units/mL <53 0.10 - 0.30 units/mL 53 - 67 0.30 - 0.70 units/mL* 67 - 95* 0.70 - 1.00 units/mL 95 - 116 *corresponds to therapeutic range for unfractionated heparin Blood specimen (specimen) 05/20/2008 11:20 AM CDT 05/20/2008 11:25 AM CDT Viktoriya Gavin MD HEMATOLOGY ORDERABLES Edit ed INTERFACE SYSTEM Refer to clinic/hospital department [facility] CLIA# [id number] [address] [place] [address] * (ABNORMAL) MAGNESIUM LEVEL (05/20/2008 11:20 AM CDT) MAGNESIUM 2.7(H) 1.5 - 2.5 mg/dL [facility] Blood specimen (specimen) 05/20/2008 11:20 AM CDT 05/20/2008 11:25 AM CDT Viktoriya Gavin MD CHEMISTRY ORDERABLES Final Result Performing Organization Address [facility] Phone Number INTERFACE SYSTEM Refer to clinic/hospital department [facility] CLIA# [id number] [address] [place] [address] * (ABNORMAL) CVR ONLY, CKMB/CK (05/20/2008 11:20 AM CDT) CKMB 12.5(AA) <=3.8 ng/mL [facility] Comment: Results called to yenifer at 05/20/08 11:54 AM and read back verified. CKMB INTERP See Below [facility] Comment: Elevated CKMB,consistent with Myocardial Injury. CK 121 10 - 145 U/L [facility] CARDIAC RELATIVE INDEX N/A <=4.0 [facility] Blood specimen (specimen) 05/20/2008 11:20 AM CDT 05/20/2008 11:25 AM CDT Viktoriya Gavin MD CHEMISTRY ORDERABLES Edite d Performing Organization Address [facility] Phone Number INTERFACE SYSTEM Refer to clinic/hospital department [facility] CLIA# [id number] [address] [place] [address] * (ABNORMAL) BASIC METABOLIC PANEL (05/20/2008 11:20 AM CDT) CALCIUM 8.4(L) 8.6 - 10.2 mg/dL [facility] CO2 22 22 - 30 mmol/L [facility] CREATININE 0.80 0.51 - 0.95 mg/dL [facility] POTASSIUM 4.2 3.5 - 4.9 mmol/L [facility] BUN 14 6 - 20 mg/dL [facility] CHLORIDE 109(H) 96 - 108 mmol/L [facility] GLUCOSE 111(H) 65 - 99 mg/dL [facility] SODIUM 136 135 - 145 mmol/L [facility] GFR, >60 >=60 mL/min/1. 7 sq meter [facility] GFR >60 >=60 mL/min/1. 7 sq meter [facility] Comment: Modification of Diet in Renal Disease (MDRD) study formula. Estimated GFR rate interpretative information for both Americans and non- Americans is available on the [facility] at: [email or web address] Select: Lab Policies and Procedures Select: Reference Ranges - GFR Blood specimen (specimen) 05/20/2008 11:20 AM CDT 05/20/2008 11:25 AM CDT us Viktoriya Gavin MD CHEMISTRY ORDERABLES Edite d INTERFACE SYSTEM Refer to clinic/hospital department [facility] CLIA# [id number] [address] [place] [address] * (ABNORMAL) CBC WITH DIFFERENTIAL (05/20/2008 11:20 AM CDT) WBC 7.4 4.0 - 9.8 K/uL [facility] MCH 30.8 27.2 - 32.6 pg [facility] MPV 12.6(H) 9.3 - 12.4 fL [facility] HEMATOCRIT 33.0(L) 35.5 - 44.0 % [facility] RDW-STDEV 45.9 37.1 - 48.7 fL [facility] RBC 3.64(L) 3.90 - 4.90 M/uL [facility] MCHC 33.9 31.5 - 35.5 % [facility] MCV 90.7 82.0 - 99.0 fL [facility] PLATELETS 111(L) 140 - 350 K/uL [facility] HEMOGLOBIN 11.2(L) 11.8 - 14.8 g/dL [facility] RDW 13.7 11.5 - 14.5 % [facility] LYMPHOCYTES 19 16 - 45 % [facility] LYMPHOCYTE ABSOLUTE 1.37 0.70 - 4.50 K/uL [facility] BASOPHILS 0 0 - 2 % [facility] BASOPHILS ABSOLUTE 0.03 0.00 - 0.20 K/uL [facility] MONOCYTES 1(L) 3 - 13 % [facility] MONOCYTE ABSOLUTE 0.10 0.10 - 1.30 K/uL [facility] NEUTROPHILS 78(H) 45 - 70 % [facility] NEUTROPHIL ABSOLUTE 5.76 1.90 - 7.00 K/uL [facility] EOSINOPHILS 2 0 - 7 % [facility] EOSINOPHIL ABSOLUTE 0.11 0.00 - 0.70 K/uL [facility] Blood specimen (specimen) 05/20/2008 11:20 AM CDT 05/20/2008 11:25 AM CDT us Viktoriya Gavin MD HEMATOLOGY ORDERABLES Edit ed INTERFACE SYSTEM Refer to clinic/hospital department [facility] CLIA# [id number] [address] [place] [address] * XR CHEST PA OR AP (05/20/2008 11:00 AM CDT) Anatomical Region Laterality Modality Chest Other 05/20/2008 11:0 0 AM CDT Narrative 05/20/2008 11:45 AM CDT [place] [address], [place] [address] Admit Date: 05/19/2008 ABEBE CUNNINGHAM Sex: F Admit Prov: BRIJESH BIRD Date: 1945 Primary Care Prov: CMRN: [id number] Room: [address] [place] [address] SSN: [id number] IMAGING SERVICES Ordering Prov: N/A Accession Number: [id number] Interpretation Portable AP supine chest of 1120 hours. History: Chest pain. Lines: Since the previous exam of May 19, the patient has undergone median sternotomy. The chest tubes are in expected position. The endotracheal tube tip is at the thoracic inlet. The [place]-Ambrosio catheter tip is overlying the main pulmonary artery. There is a mild hazy atelectatic change in the left lung. There is no pneumothorax. The heart size is mildly enlarged. Opinion: Mild cardiomegaly and mild left atelectasis . Dictated by: KANDACE MTZ 05/20/2008 11:42 Electronically signed by: KANDACE MTZ 05/20/2008 11:43 Procedure Note Kandace Mtz MD - 05/20/2008 [address] [place], [place] [address] Admit Date: 05/19/2008 ABEBE CUNNINGHAM Sex: F Admit Prov: BRIJESH BIRD Date: 1945 Primary Care Prov: CMRN: [id number] Room: [address] [place] [address] SSN: [id number] IMAGING SERVICES Ordering Prov: N/A Interpretation Portable AP supine chest of 1120 hours. History: Chest pain. Lines: Since the previous exam of May 19, the patient hasundergone median sternotomy. The chest tubes are in expected position. The endotracheal tube tip is at the thoracic inlet. The [place]-Ganzcatheter tip is overlying the main pulmonary artery. There is a mild hazyatelectatic change in the left lung. There is no pneumothorax. The heart size ismildly enlarged. Opinion: Mild cardiomegaly and mild left atelectasis . Dictated by: KANDACE MTZ 05/20/2008 11:42 Electronically signed by: KANDACE MTZ 05/20/2008 11:43 us Viktoriya Gavin MD DIAGNOSTIC IMAGING ORDERAB LES Final Result * (ABNORMAL) POC RT, BLOOD GASES (05/20/2008 10:48 AM CDT) COMMENT, GASES POC POST BYPASS [facility] PATIENT'S TEMPERATURE 37.0 Degree C [facility] LACTIC ACID 2.3(H) 0.5 - 2.2 mmol/L [facility] CALICUM IONIZED, WHOLE BLOOD 4.97 4.76 - 5.16 mg/dL [facility] PO2 ARTERIAL 220(H) 83 - 108 mm Hg [facility] SODIUM POC 136 135 - 145 mmol/L [facility] PH ARTERIAL 7.35(L) 7.35 - 7.45 [facility] BASE EXCESS ABG -0.9 -2.0 - 3.0 mmol/L [facility] HEMATOCRIT POC 26.0(L) 35.5 - 44.0 % [facility] GLUCOSE POC 108(H) 65 - 99 mg/dL [facility] O2 SAT EST ABG POC 100(H) 95 - 99 % [facility] POTASSIUM POC 4.7 3.5 - 4.9 mmol/L [facility] TCO2, ABG POC 26(H) 19 - 24 mmol/L [facility] PCO2 ARTERIAL 45 35 - 48 mm Hg [facility] HCO3 ARTERIAL 25 22 - 26 mmol/L [facility] Blood specimen (specimen) 05/20/2008 10:48 AM CDT 05/20/2008 10:48 AM CDT us Brijesh Bird MD CHEMISTRY ORDERABLES Rosenda chavez Result INTERFACE SYSTEM Refer to clinic/hospital department [facility] CLIA# [id number] [address] [place] [address] * (ABNORMAL) POC RT, BLOOD GASES (05/20/2008 10:35 AM CDT) PCO2 ARTERIAL 37 35 - 48 mm Hg [facility] HCO3 ARTERIAL 24 22 - 26 mmol/L [facility] COMMENT, GASES POC POST PROTAMINE [facility] PATIENT'S TEMPERATURE 37.0 Degree C [facility] LACTIC ACID 2.1 0.5 - 2.2 mmol/L [facility] CALICUM IONIZED, WHOLE BLOOD 4.81 4.76 - 5.16 mg/dL [facility] PO2 ARTERIAL 100 83 - 108 mm Hg [facility] SODIUM POC 136 135 - 145 mmol/L [facility] PH ARTERIAL 7.41 7.35 - 7.45 [facility] BASE EXCESS ABG -1.0 -2.0 - 3.0 mmol/L [facility] HEMATOCRIT POC 25.0(L) 35.5 - 44.0 % [facility] GLUCOSE POC 110(H) 65 - 99 mg/dL [facility] O2 SAT EST ABG POC 98 95 - 99 % [facility] POTASSIUM POC 4.5 3.5 - 4.9 mmol/L [facility] TCO2, ABG POC 25(H) 19 - 24 mmol/L [facility] Blood specimen (specimen) 05/20/2008 10:35 AM CDT 05/20/2008 10:35 AM CDT us Brijesh Bird MD CHEMISTRY ORDERABLES Rosenda chavez Result INTERFACE SYSTEM Refer to clinic/hospital department [facility] CLIA# [id number] [address] [place] [address] * (ABNORMAL) POC RT, BLOOD GASES (05/20/2008 10:05 AM CDT) PH ARTERIAL 7.48(H) 7.35 - 7.45 [facility] BASE EXCESS ABG 1.1 -2.0 - 3.0 mmol/L [facility] GLUCOSE POC 112(H) 65 - 99 mg/dL [facility] HEMATOCRIT POC 24.0(L) 35.5 - 44.0 % [facility] O2 SAT EST ABG POC 100(H) 95 - 99 % [facility] TCO2, ABG POC 26(H) 19 - 24 mmol/L [facility] POTASSIUM POC 5.1(H) 3.5 - 4.9 mmol/L [facility] PCO2 ARTERIAL 33(L) 35 - 48 mm Hg [facility] COMMENT, GASES POC CPB #4 [facility] HCO3 ARTERIAL 25 22 - 26 mmol/L [facility] PATIENT'S TEMPERATURE 37.0 Degree C [facility] CALICUM IONIZED, WHOLE BLOOD 4.73(L) 4.76 - 5.16 mg/dL [facility] LACTIC ACID 1.7 0.5 - 2.2 mmol/L [facility] PO2 ARTERIAL 341(H) 83 - 108 mm Hg [facility] SODIUM POC 133(L) 135 - 145 mmol/L [facility] Blood specimen (specimen) 05/20/2008 10:05 AM CDT 05/20/2008 10:05 AM CDT us Brijesh Bird MD CHEMISTRY ORDERABLES Rosenda chavez Result INTERFACE SYSTEM Refer to clinic/hospital department [facility] CLIA# [id number] [address] [place] [address] * (ABNORMAL) POC RT, BLOOD GASES (05/20/2008 9:35 AM CDT) O2 SAT EST ABG POC 100(H) 95 - 99 % [facility] HEMATOCRIT POC 24.0(L) 35.5 - 44.0 % [facility] BASE EXCESS ABG 0.1 -2.0 - 3.0 mmol/L [facility] GLUCOSE POC 107(H) 65 - 99 mg/dL [facility] PCO2 ARTERIAL 38 35 - 48 mm Hg [facility] POTASSIUM POC 4.6 3.5 - 4.9 mmol/L [facility] PCO2 TEMP CORRECT 32 mm Hg [facility] TCO2, ABG POC 26(H) 19 - 24 mmol/L [facility] PATIENT'S TEMPERATURE 33.0 Degree C [facility] HCO3 ARTERIAL 25 22 - 26 mmol/L [facility] COMMENT, GASES POC CPB #3 [facility] PO2 ARTERIAL 251(H) 83 - 108 mm Hg [facility] PO2 TEMP CORRECT 233 mm Hg [facility] LACTIC ACID 1.9 0.5 - 2.2 mmol/L [facility] CALICUM IONIZED, WHOLE BLOOD 4.93 4.76 - 5.16 mg/dL [facility] PH ARTERIAL 7.42 7.35 - 7.45 [facility] PH TEMP CORRECT 7.48 [facility] SODIUM POC 134(L) 135 - 145 mmol/L [facility] Blood specimen (specimen) 05/20/2008 9:35 AM CDT 05/20/2008 9:35 AM CDT us Brijesh Bird MD CHEMISTRY ORDERABLES Rosenda chavez Result INTERFACE SYSTEM Refer to clinic/hospital department [facility] CLIA# [id number] [address] [place], [place] [address] * (ABNORMAL) POC RT, BLOOD GASES (05/20/2008 9:06 AM CDT) GLUCOSE POC 91 65 - 99 mg/dL [facility] HEMATOCRIT POC 22.0(AA) 35.5 - 44.0 % [facility] PCO2 ARTERIAL 38 35 - 48 mm Hg [facility] PCO2 TEMP CORRECT 32 mm Hg [facility] TCO2, ABG POC 26(H) 19 - 24 mmol/L [facility] POTASSIUM POC 3.8 3.5 - 4.9 mmol/L [facility] PATIENT'S TEMPERATURE 33.0 Degree C [facility] COMMENT, GASES POC CPB #2 [facility] HCO3 ARTERIAL 25 22 - 26 mmol/L [facility] PO2 ARTERIAL 275(H) 83 - 108 mm Hg [facility] CALICUM IONIZED, WHOLE BLOOD 4.37(L) 4.76 - 5.16 mg/dL [facility] PO2 TEMP CORRECT 257 mm Hg [facility] LACTIC ACID 2.1 0.5 - 2.2 mmol/L [facility] PH ARTERIAL 7.42 7.35 - 7.45 [facility] PH TEMP CORRECT 7.48 [facility] SODIUM POC 136 135 - 145 mmol/L [facility] O2 SAT EST ABG POC 100(H) 95 - 99 % [facility] BASE EXCESS ABG 0.1 -2.0 - 3.0 mmol/L [facility] Blood specimen (specimen) 05/20/2008 9:06 AM CDT 05/20/2008 9:06 AM CDT us Brijesh Bird MD CHEMISTRY ORDERABLES Rosenda chavez Result INTERFACE SYSTEM Refer to clinic/hospital department [facility] CLIA# [id number] [address] [place] [address] * (ABNORMAL) POC RT, BLOOD GASES (05/20/2008 9:02 AM CDT) [facility] IONIZED, WHOLE BLOOD 4.45(L) 4.76 - 5.16 mg/dL [facility] LACTIC ACID 2.1 0.5 - 2.2 mmol/L [facility] PH TEMP CORRECT 7.39 [facility] SODIUM POC 135 135 - 145 mmol/L [facility] O2 SAT EST MVBG POC 67 40 - 70 % [facility] PO2 TEMP CORRECT 29 mm Hg [facility] GLUCOSE POC 92 65 - 99 mg/dL [facility] HEMATOCRIT POC 22.0(AA) 35.5 - 44.0 % [facility] PCO2 VENOUS 52(H) 38 - 50 mm Hg [facility] PCO2 TEMP CORRECT 44 mm Hg [facility] TCO2, MVBG POC 29(H) 22 - 26 mmol/L [facility] POTASSIUM POC 3.9 3.5 - 4.9 mmol/L [facility] PATIENT'S TEMPERATURE 33.0 Degree C [facility] BASE EXCESS VENOUS 1.2 -2.0 - 3.0 mmol/L [facility] COMMENT, GASES POC CPB #1 [facility] PO2 MVBG 38 25 - 40 mm Hg [facility] HCO3 MIXED VENOUS 27 22 - 29 mmol/L [facility] PH MVBG 7.33 7.32 - 7.43 [facility] Blood specimen (specimen) 05/20/2008 9:02 AM CDT 05/20/2008 9:02 AM CDT us Brijesh Bird MD CHEMISTRY ORDERABLES Rosenda chavez Result INTERFACE SYSTEM Refer to clinic/hospital department [facility] CLIA# [id number] [address] [place] [address] * (ABNORMAL) POC RT, BLOOD GASES (05/20/2008 8:43 AM CDT) PO2 ARTERIAL 259(H) 83 - 108 mm Hg [facility] SODIUM POC 137 135 - 145 mmol/L [facility] PH ARTERIAL 7.39 7.35 - 7.45 [facility] BASE EXCESS ABG 3.5(H) -2.0 - 3.0 mmol/L [facility] HEMATOCRIT POC 31.0(L) 35.5 - 44.0 % [facility] GLUCOSE POC 100(H) 65 - 99 mg/dL [facility] O2 SAT EST ABG POC 100(H) 95 - 99 % [facility] POTASSIUM POC 3.8 3.5 - 4.9 mmol/L [facility] TCO2, ABG POC 31(H) 19 - 24 mmol/L [facility] PCO2 ARTERIAL 48 35 - 48 mm Hg [facility] HCO3 ARTERIAL 29(H) 22 - 26 mmol/L [facility] COMMENT, GASES POC POST HEPARIN [facility] PATIENT'S TEMPERATURE 37.0 Degree C [facility] LACTIC ACID 1.2 0.5 - 2.2 mmol/L [facility] CALICUM IONIZED, WHOLE BLOOD 4.53(L) 4.76 - 5.16 mg/dL [facility] Blood specimen (specimen) 05/20/2008 8:43 AM CDT 05/20/2008 8:43 AM CDT us Brijesh Bird MD CHEMISTRY ORDERABLES Rosenda chavez Result INTERFACE SYSTEM Refer to clinic/hospital department [facility] CLIA# [id number] [address] [place] [address] * (ABNORMAL) POC RT, BLOOD GASES (05/20/2008 7:37 AM CDT) SODIUM POC 137 135 - 145 mmol/L [facility] PH ARTERIAL 7.43 7.35 - 7.45 [facility] BASE EXCESS ABG 3.8(H) -2.0 - 3.0 mmol/L [facility] GLUCOSE POC 95 65 - 99 mg/dL [facility] HEMATOCRIT POC 31.0(L) 35.5 - 44.0 % [facility] O2 SAT EST ABG POC 100(H) 95 - 99 % [facility] TCO2, ABG POC 30(H) 19 - 24 mmol/L [facility] POTASSIUM POC 3.5 3.5 - 4.9 mmol/L [facility] PCO2 ARTERIAL 43 35 - 48 mm Hg [facility] COMMENT, GASES POC POST INDUCTION [facility] HCO3 ARTERIAL 28(H) 22 - 26 mmol/L [facility] PATIENT'S TEMPERATURE 37.0 Degree C [facility] CALICUM IONIZED, WHOLE BLOOD 4.53(L) 4.76 - 5.16 mg/dL [facility] LACTIC ACID 1.5 0.5 - 2.2 mmol/L [facility] PO2 ARTERIAL 285(H) 83 - 108 mm Hg [facility] Blood specimen (specimen) 05/20/2008 7:37 AM CDT 05/20/2008 7:37 AM CDT us Brijesh Bird MD CHEMISTRY ORDERABLES Rosenda chavez Result Performing Organization Address City/[facility] de Phone Number INTERFACE SYSTEM Refer to clinic/hospital department [facility] CLIA# [id number] [address] [place] [address] * TYPE & CROSS ADDITIONAL PACKED CELLS (05/20/2008 6:30 AM CDT) Specimen of unknown material (specimen) 05/20/2008 6:30 AM CDT 05/20/2008 6:40 AM CDT Narrative INTERFACE SYSTEM - 05/20/2008 6:41 AM CDT please keep 2 units ahead for surgery us Viktoriya Gavin MD BLOOD BANK ORDERABLES Rosenda chavez Result Performing Organization Address [facility] de Phone Number INTERFACE SYSTEM Refer to clinic/hospital department * XR CHEST PA AND LATERAL (05/19/2008 10:01 PM CDT) Anatomical Region Laterality Modality Chest Other 05/19/2008 10:0 1 PM CDT Narrative 05/20/2008 7:14 AM CDT [facility] [address] [place], [place] [address] Admit Date: 05/19/2008 [place] Sex: F Admit Prov: BRIJESH BIRD Date: 1945 Primary Care Prov: CMRN: [id number] Room: [place] [address] SSN: [id number] IMAGING SERVICES Ordering Prov: N/A Accession Number: [id number] Interpretation CHEST, PA AND LATERAL, 05/19/2008 History: Angina, chest pain, preoperative examination. Findings: No infiltrate, pleural effusion or pneumothorax is present. The heart is enlarged. Mediastinum and pulmonary vascularity are normal. Impression: No active pulmonary disease. . Dictated by: NATE PEOPLES 05/19/2008 22:17 Electronically signed by: NATE PEOPLES 05/20/2008 07:13 Transcribed: 05/19/2008 22:32 SJ Procedure Note Nate Peoples MD - 05/20/[address] [address] Admit Date: 05/19/2008 ABEBE [place] Sex: F Admit Prov: BRIJESH BIRD Date: 1945 [facility] Prov: CMRN: [id number] Room: [place] [address] SSN: [id number] IMAGING SERVICES Ordering Prov: N/A Interpretation CHEST, PA AND LATERAL, 05/19/2008 History: Angina, chest pain, preoperative examination. Findings: No infiltrate, pleural effusion or pneumothorax is present.The heart is enlarged. Mediastinum and pulmonary vascularity arenormal. Impression: No active pulmonary disease. . Dictated by: NATE PEOPLES 05/19/2008 22:17 Electronically signed by: NATE PEOPLES 05/20/2008 07:13 Transcribed: 05/19/2008 22:32 SJ us Viktoriya Gavin MD DIAGNOSTIC IMAGING ORDERAB LES Final Result * URINE CULTURE (05/19/2008 10:00 PM CDT) PRELIMINARY REPORT Pending [facility] FINAL REPORT No growth 24 hours [facility] 05/19/2008 10:0 0 PM CDT 05/19/2008 11:22 PM CDT us Viktoriya Gavin MD MICROBIOLOGY - GENERAL ORD ERABLES Final Result Performing Organization Address City/[facility]/ZIP Co de Phone Number INTERFACE SYSTEM Refer to clinic/hospital department [facility] CLIA# [id number] [address] [place] [address] * (ABNORMAL) URINALYSIS (05/19/2008 10:00 PM CDT) PH UA 5.0 5.0 - 8.0 [facility] WBC UA 13(H) 0 - 5 /HPF [facility] KETONES UA Negative Negative [facility] CLARITY UA Slt. Cloudy(A) Clear [facility] BILIRUBIN UA Negative Negative [facility] PROTEIN UA Negative Negative [facility] LEUKOCYTE ESTERASE UA 3+(A) Negative [facility] RBC UA 3 0 - 4 /HPF [facility] SPECIFIC GRAVITY UA 1.007 1.001 - 1.035 [facility] GLUCOSE UA Negative Negative [facility] BLOOD UA Negative Negative [facility] COLOR UA Colorless [facility] NITRITE UA Negative Negative [facility] EPITHELIAL CELLS, URINE Many /HPF [facility] UROBILINOGEN UA <1 <=1 mg/dL [facility] 05/19/2008 10:0 0 PM CDT 05/19/2008 10:31 PM CDT us Viktoriya Gavin MD URINE ORDERABLES Final Res ult Performing Organization Address City/[facility]/ZIP Co de Phone Number INTERFACE SYSTEM Refer to clinic/hospital department [facility] CLIA# [id number] [address] [place] [address] * URINALYSIS WITH REFLEX CULTURE (05/19/2008 10:00 PM CDT) URINE CULTURE ORDER Culture ordered [facility] Comment: Criteria for a reflex culture include one or more of the following: Abnormal nitrite, leukocyte esterase, WBCs or RBCs. Lack of qualifying criteria does not exclude the possiblity of a urinary tract infection. Dilute urine, drug interference, etc. may decrease the sensitivity of the criteria analytes. Urine specimen (specimen) 05/19/2008 10:00 PM CDT 05/19/2008 10:31 PM CDT us Viktoriya Gavin MD URINE ORDERABLES Final Res ult INTERFACE SYSTEM Refer to clinic/hospital department [facility] CLIA# [id number] [address] [facility] [place] [address] * CBC WITH DIFFERENTIAL (05/19/2008 4:15 PM CDT) MCV 93.0 82.0 - 99.0 fL [facility] PLATELETS 176 140 - 350 K/uL [facility] HEMOGLOBIN 12.5 11.8 - 14.8 g/dL [facility] RDW 13.1 11.5 - 14.5 % [facility] WBC 4.7 4.0 - 9.8 K/uL [facility] MCH 31.3 27.2 - 32.6 pg [facility] MPV 12.4 9.3 - 12.4 fL [facility] HEMATOCRIT 37.2 35.5 - 44.0 % [facility] RDW-STDEV 43.9 37.1 - 48.7 fL [facility] RBC 4.00 3.90 - 4.90 M/uL [facility] MCHC 33.6 31.5 - 35.5 % [facility] NEUTROPHIL ABSOLUTE 2.47 1.90 - 7.00 K/uL [facility] EOSINOPHILS 3 0 - 7 % [facility] EOSINOPHIL ABSOLUTE 0.16 0.00 - 0.70 K/uL [facility] LYMPHOCYTES 38 16 - 45 % [facility] LYMPHOCYTE ABSOLUTE 1.78 0.70 - 4.50 K/uL [facility] BASOPHILS 1 0 - 2 % [facility] BASOPHILS ABSOLUTE 0.04 0.00 - 0.20 K/uL [facility] MONOCYTES 5 3 - 13 % [facility] MONOCYTE ABSOLUTE 0.22 0.10 - 1.30 K/uL [facility] NEUTROPHILS 53 45 - 70 % [facility] Blood specimen (specimen) 05/19/2008 4:15 PM CDT 05/19/2008 4:32 PM CDT us Viktoriya Gavin MD HEMATOLOGY ORDERABLES Edit ed Performing Organization Address [facility] de Phone Number INTERFACE SYSTEM Refer to clinic/hospital department [facility] CLIA# [id number] [address] [place] [address] * POC ACTIVATED CLOTTING TIME (05/19/2008 2:25 PM CDT) ACT POC 121 Seconds [facility] Comment: ansiNote sheath pull range change effective 02/24/2006. ACT value for sheath pull at [facility] has been established to be < or = to 140. (See also Nursing Procedures for sheath pull in related nursing areas) Blood specimen (specimen) 05/19/2008 2:25 PM CDT 05/19/2008 2:25 PM CDT us Brijesh Bird MD POINT OF CARE TESTING Fin al Result Performing Organization Address [facility]/State/ZIP Co de Phone Number INTERFACE SYSTEM Refer to clinic/hospital department [facility] CLIA# [id number] [address] [place] [address] * (ABNORMAL) COMPREHENSIVE METABOLIC PANEL (05/19/2008 1:25 PM CDT) AST 18 12 - 32 U/L [facility] BUN 14 6 - 20 mg/dL [facility] CALCIUM 9.1 8.6 - 10.2 mg/dL [facility] ALBUMIN 3.6 3.4 - 4.8 g/dL [facility] CHLORIDE 104 96 - 108 mmol/L [facility] CREATININE 0.70 0.51 - 0.95 mg/dL [facility] ALT 19 0 - 31 U/L [facility] SODIUM 137 135 - 145 mmol/L [facility] ALKALINE PHOSPHATASE 75 35 - 104 U/L [facility] CO2 25 22 - 30 mmol/L [facility] BILIRUBIN TOTAL 0.2 0.2 - 1.0 mg/dL [facility] POTASSIUM 3.7 3.5 - 4.9 mmol/L [facility] TOTAL PROTEIN 5.9(L) 6.3 - 8.6 g/dL [facility] GLUCOSE 88 65 - 99 mg/dL [facility] GFR, >60 >=60 mL/min/1. 7 sq meter [facility] GFR >60 >=60 mL/min/1. 7 sq meter [facility] Comment: Modification of Diet in Renal Disease (MDRD) study formula. Estimated GFR rate interpretative information for both Americans and non- Americans is available on the [facility] at: [email or web address] Select: Lab Policies and Procedures Select: Reference Ranges - GFR Blood specimen (specimen) 05/19/2008 1:25 PM CDT 05/19/2008 1:39 PM CDT Brijesh Bird MD CHEMISTRY ORDERABLES Edit ed Performing Organization Address [facility] Phone Number INTERFACE SYSTEM Refer to clinic/hospital department [facility] CLIA# [id number] [address] [place] [address] * POC ACTIVATED CLOTTING TIME (05/19/2008 1:19 PM CDT) ACT POC 161 Seconds [facility] [facility] Comment: Note sheath pull range change effective 02/24/2006. ACT value for sheath pull at [facility] has been established to be < or = to 140. (See also Nursing Procedures for sheath pull in related nursing areas) Blood specimen (specimen) 05/19/2008 1:19 PM CDT 05/19/2008 1:19 PM CDT Brijesh Bird MD POINT OF CARE TESTING Fin al Result Performing Organization Address [facility] Phone Number INTERFACE SYSTEM Refer to clinic/hospital department [facility] CLIA# [id number] [address] [place] [address] * TYPE AND CROSSMATCH (05/19/2008 12:48 PM CDT) HISTORY CHECK No Historical ABO/Rh [facility] SPECIMEN LIFE 3 days from drawdate [facility] ABO/RH TYPE A Negative [facility] ANTIBODY SCREEN Negative [facility] Blood specimen (specimen) 05/19/2008 12:48 PM CDT Viktoriya Gavin MD BLOOD BANK ORDERABLES Edit ed Performing Organization Address [facility] Phone Number INTERFACE SYSTEM Refer to clinic/hospital department [facility] CLIA# [id number] [facility] [place] [address] * CL CORONARY ANGIOGRAM (05/19/2008 11:59 AM CDT) Narrative INTERFACE SYSTEM - 05/19/2008 11:59 AM CDT [facility] [address] [place] [address] [email or web address] Comprehensive Report Patient: Abebe Cunningham Study ID: [id number] Gender: F : 1945 Age: 63 years Race: 1 Room: Bed: Height: 67 in ( 170.2 cm ) Study Date: May 19, 2008 Patient status: Outpatient Weight: 222 lb ( 100.9 kg ) Access. #: [id number] POC: Attending MD: Kamini Performing MD: Kamini Indications and History: INDICATIONS: Stable angina. The patient stable. Pt with known CAD that despite medical therapy remains sympomatic with angina and is referred for repeat catheterization Procedure(s) Performed: DIAGNOSTIC PROCEDURES: Left heart catheterization. Left ventriculography. Selective coronary angiography. Study Conclusions: SUMMARY - EF estimated by contrast ventriculography was 75 %. - Mid left main: There was a 50 % stenosis : Proximal LAD: There was a tubular 60 % stenosis : Proximal RCA: There was a 80 % stenosis : - Coronary flow reserve measured in the L Main at 0.8 and in the LAD at 0.6 using the RADI wire. RECOMMENDATIONS Based on the conclusions of this study, a cardiac surgery consult be obtained for coronary artery bypass grafting. COMPLICATIONS: There were no complications. Description of Procedure: BACKGROUND INFORMATION: Contrast ( Optiray, 150 ml ) was administered during the procedure. The patient was given 140.000 mcg/kg/min Adenosine Drip. The patient was given 7000.000 units HEPARIN (IVP). The patient was given 50.000 mL (IV) IV Solutions. The patient was given 3.000 l/min OXYGEN. The patient was given 2.000 mg VERSED (IVP). Hemodynamics: IMPRESSIONS: Hemodynamic assessment demonstrated normal hemodynamics. Cardiac structures: VENTRICULOGRAPHY: There were no left ventricular regional wall motion abnormalities. EF estimated by contrast ventriculography was 75 %. Coronary and graft angiography: The coronary circulation is right dominant. Except as noted, lesion stenosis was estimated visually. LEFT MAIN CORONARY ARTERY: Mid left main: There was a 50 % stenosis : LEFT ANTERIOR DESCENDING AND BRANCHES: Proximal LAD: There was a tubular 60 % stenosis : LEFT CIRCUMFLEX AND BRANCHES: Circumflex: Angiographically normal. RIGHT CORONARY AND BRANCHES: Proximal RCA: There was a 80 % stenosis : Condition1: --- Pressure mmHg Rate dPdt AO 126-S/ 51-D, 78-M 49 BPM LV 124-S/ 4-BD, 12-ED 49 BPM 1620 AOp 114-S/ 43-D, 69-M 51 BPM PBa 111-S/ 43-D, 68-M 50 BPM UD1 117-S/ 46-D, 72-M 51 BPM UD2 117-S/ 45-D, 71-M 52 BPM PBv 104-S/ 3-BD, 11-ED 49 BPM 1840 Condition2:Radi wire --- Pressure mmHg Rate dPdt AO 117-S/ 45-D, 71-M 52 BPM AOp 103-S/ 44-D, 69-M 74 BPM UD1 89-S/ 24-D, 51-M 74 BPM Prepared and Electronically Authenticated Brijesh Bird MD Confirmed May 19, 2008 11:40:08 Procedure Note Provider, Historical - 05/19/2008 [facility] [address] [place] [address] [email or web address] Comprehensive Report Patient: Abebe Cunningham Study ID: [id number] Gender: F : 1945 Age: 63 years Race: 1 Room: Bed: Height: 67 in ( 170.2 cm ) Study Date: May 19, 2008 Patient status: Outpatient Weight: 222 lb ( 100.9 kg ) Access. #: [id number] POC: Attending MD: Kamini Performing MD: Kamini Indications and History: INDICATIONS: Stable angina. The patient stable. Pt with known CAD that despitemedical therapy remains sympomatic with angina and is referred for repeat catheterization Procedure(s) Performed: DIAGNOSTIC PROCEDURES: Left heart catheterization. Left ventriculography. Selective coronary angiography. Study Conclusions: SUMMARY - EF estimated by contrast ventriculography was 75 %. - Mid left main: There was a 50 % stenosis : Proximal LAD: There was a tubular 60 % stenosis : Proximal RCA: There was a 80 % stenosis : - Coronary flow reserve measured in the L Main at 0.8 and in the LAD at 0.6 using the RADI wire. RECOMMENDATIONS Based on the conclusions of this study, a cardiac surgery consult be obtained for coronary artery bypass grafting. COMPLICATIONS: There were no complications. Description of Procedure: BACKGROUND INFORMATION: Contrast ( Optiray, 150 ml ) was administered during the procedure. The patient was given 140.000 mcg/kg/min Adenosine Drip. The patient wasgiven 7000.000 units HEPARIN (IVP). The patient was given 50.000 mL (IV) IV Solutions. The patient was given 3.000 l/min OXYGEN. The patient wasgiven 2.000 mg VERSED (IVP). Hemodynamics: IMPRESSIONS: Hemodynamic assessment demonstrated normal hemodynamics. Cardiac structures: VENTRICULOGRAPHY: There were no left ventricular regional wall motion abnormalities. EF estimated by contrast ventriculography was 75 %. Coronary and graft angiography: The coronary circulation is right dominant. Except as noted, lesion stenosis was estimated visually. LEFT MAIN CORONARY ARTERY: Mid left main: There was a 50 % stenosis : LEFT ANTERIOR DESCENDING AND BRANCHES: Proximal LAD: There was a tubular 60 % stenosis : LEFT CIRCUMFLEX AND BRANCHES: Circumflex: Angiographically normal. RIGHT CORONARY AND BRANCHES: Proximal RCA: There was a 80 % stenosis : Condition1: --- Pressure mmHg Rate dPdt AO 126-S/ 51-D, 78-M 49 BPM LV 124-S/ 4-BD, 12-ED 49 BPM 1620 AOp 114-S/ 43-D, 69-M 51 BPM PBa 111-S/ 43-D, 68-M 50 BPM UD1 117-S/ 46-D, 72-M 51 BPM UD2 117-S/ 45-D, 71-M 52 BPM PBv 104-S/ 3-BD, 11-ED 49 BPM 1840 Condition2:Radi wire --- Pressure mmHg Rate dPdt AO 117-S/ 45-D, 71-M 52 BPM AOp 103-S/ 44-D, 69-M 74 BPM UD1 89-S/ 24-D, 51-M 74 BPM Prepared and Electronically Authenticated Brijesh Bird MD Confirmed May 19, 2008 11:40:08 us Brijesh Bird MD FLUOROSCOPY ORDERABLES Fi nal Result Performing Organization Address [facility] de Phone Number INTERFACE SYSTEM Refer to clinic/hospital department * POC ACTIVATED CLOTTING TIME (05/19/2008 11:53 AM CDT) ACT POC 192 Seconds [facility] Comment: Note sheath pull range change effective 02/24/2006. ACT value for sheath pull at [facility] has been established to be < or = to 140. (See also Nursing Procedures for sheath pull in related nursing areas) Blood specimen (specimen) 05/19/2008 11:53 AM CDT 05/19/2008 11:53 AM CDT us Brijesh Bird MD POINT OF CARE TESTING Fin al Result Performing Organization Address [facility] Phone Number INTERFACE SYSTEM Refer to clinic/hospital department [facility] CLIA# [id number] [address] [place] [address] * POC ACTIVATED CLOTTING TIME (05/19/2008 10:34 AM CDT) ACT POC 228 Seconds [facility] Comment: Note sheath pull range change effective 02/24/2006. ACT value for sheath pull at [facility] has been established to be < or = to 140. 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
--- OUTSIDE RECORDS SUMMARY | 2024-11-12 01:01 | XMS_ITS | Encounter Summary ---
Author Organization [facility] Address [address] [facility] [place] [address] Care Team Providers Care Messenger Office Name Role Phone Unavailable Primary Care Provider Unavailabl e Encounter Details Date Type Department Care Team (Late st Contact Info) Description 01/26/2023 Lab Requisition [facility] - Pathology Lab [address] [place] [address] Bola Arzola MD [facility] [address] [address] Anemia in other chronic diseases classified elsewhere Social History Tobacco Use Types Packs/Day Years Used Date Smoking Tobacco: Never Assessed Sex and Gender Information Value Date Recorded Sex Assigned at Not on file Gender Identity Not on file Sexual Orientation Not on file documented as of this encounter Plan of Treatment Not on file documented as of this encounter Procedures Procedure Name Priority Date/Time Associated Diagnosis Comments FLOW CYTOMETRY BONE MARROW Routine 01/26/2023 9:23 AM CDT Anemia in other chronic diseases classified elsewhere documented in this encounter Results * FLOW CYTOMETRY BONE MARROW (01/26/2023 9:23 AM CDT) Case Report Flow Cytometry Case: [id number] Authorizing Provider: Bola Arzola MD Collected: 01/26/2023 09:23 AM Ordering Location: [facility] Care Pathology Lab Received: 01/26/2023 12:48 PM Pathologist: Dav Hinds MD Specimen: Bone Marrow 01/26/2023 5:16 PM CDT [facility] Final Diagnosis Bone marrow, flow cytometric immunophenotypic analysis: - No evidence of non-Hodgkin lymphoma or high-grade myeloid neoplasm. - See interpretation. 01/26/2023 5:16 PM [facility] Flow Cytometry Interpretation The bone marrow specimen has a viability of 94%. The lymphocyte (17%), dim CD45 (11%), monocyte (9%), and granulocyte (63%) black are normal in relative proportion. Within the lymphocyte gate, there is no monotypic B-cell population (1.5% of all events) are polytypic by kappa: lambda expression (ratio = 2:1). There is no expanded T-cell population seen. In the dimCD45 gate, by CD34, 1.5% of all events analyzed are myeloid maturing blasts. Hematogone are ~5% of all events. A bone marrow aspirate smear prepared from the flow cytometry specimen is reviewed for fiberglass quality technician purposes. The bone marrow aspirate specimen shows no evidence of involvement by non-Hodgkin lymphoma or a high-grade myeloid neoplasm. Correlation with clinical findings, the concurrent bone marrow core biopsy, and relevant cytogenetic/molecu lar studies is required. 01/26/2023 5:16 PM [facility] Flow Cytometry Results Differential Result Comment Flow Cell Count /uL 21,300 Total Viability % 94.0 Lymphocytes % 17 Dim CD45 Region % 11 Monocytes % 9 Granulocytes % 63 [facility]23 [facility] Reason for test Anemia in other chronic diseases classified elsewhere 01/26/2023 5:16 PM [facility] Client Specimen ID # [id number] 01/26/2023 5:16 PM [facility] Number of markers 10 were performed. A-2 Flow CD10 A-3 Flow CD13 A-5 Flow CD20 A-1 Flow CD5 A-4 Flow CD19 A-6 Flow CD33 A-7 Flow CD34 A-8 Flow CD45 A-9 Dobbins+CD19+ A-10 Lambda+CD19+ 01/26/2023 5:16 PM [facility] Pathologist Location at [facility] 01/26/2023 5:16 PM [facility] Disclaimer Test performed at [facility], [address] [place] [address], [id number]. *The established laboratory minimum viability is 70%. Values below the minimum may result in the failure to find an abnormal population of cells. This test was developed and its performance characteristics determined by the Flow Cytometry Laboratory. It has not been cleared by the [place] Food and Drug Administration (FDA). The FDA has determined that such clearance or approval is not necessary. This test is used for clinical purposes. It should not be regarded as investigational or for research. This laboratory is regulated under the Clinical Laboratory Improvement Amendments of 1998 (CLIA) as a qualified to perform high complexity clinical testing. 01/26/2023 5:16 PM CDT [facility] Embedded Images 5:16 PM CDT [facility] Pathology/Cytolo gy BONE MARROW SPECIMEN / Unknown 01/26/2023 9:23 AM CDT 01/26/2023 12:48 PM CDT Bola Arzola MD LAB - PATHOLOGY/CYTO LOGY ORDERABLES [facility] [address] [phone] documented in this encounter Visit Diagnoses Diagnosis Anemia in other chronic diseases classified elsewhere documented in this encounter
--- OUTSIDE RECORDS SUMMARY | 2024-11-12 01:01 | XMS_ITS | Clinical Summary ---
Author Organization [facility] Address [address] [place] [address] Phone Care Team Providers Care Machine Welder Name Role Phone Murray Bourne MD Primary Care Provider Allergies No known active allergies Medications diphenhydrAMINE (BENADRYL) 25 mg tablet Take 25 mg by mouth daily. Active amLODIPine (NORVASC) 5 mg tablet Take 5 mg by mouth daily. Active acetaminophen (TYLENOL ARTHRITIS) 650 mg Extended Release tablet Take 650 mg by mouth every 6 hours as needed for Pain. Active atorvastatin (LIPITOR) 10 mg tablet Take 40 mg by mouth daily. Active folic acid (FOLVITE) 400 mcg Tablet Take 400 mcg by mouth 2 times daily. Active metoprolol tartrate (LOPRESSOR) 25 mg tablet Take 25 mg by mouth 2 times daily. Active nitroglycerin (NITROSTAT) 0.4 mg Tablet, Sublingual Place 0.4 mg under tongue every 5 minutes as needed for Chest Pain. Active fish oil-omega-3 fatty acids 340-1,000 mg Capsule Take 1 Capsule by mouth daily. Active pantoprazole (PROTONIX) 40 mg Tablet, Delayed Release (E.C.) Take 40 mg by mouth daily. Active PARoxetine HCl (PAXIL) 20 mg tablet Take 20 mg by mouth daily. Active gabapentin (NEURONTIN) 300 mg capsule Take 300 mg by mouth 2 times daily. 0 Active polyethylene glycol (MIRALAX) 17 gram Powder in Packet Take 1 Packet (17 Grams) by mouth 1 time daily as needed for Constipation . 0 Active Cholecalciferol , Vitamin D3, 50 mcg (2,000 unit) Capsule Take by mouth daily. 2 Active traMADoL (ULTRAM) 50 mg tablet Take 50 mg by mouth every 8 hours as needed. 2 Active lisinopriL (PRINIVIL) 10 mg tablet Take 10 mg by mouth daily. 2 Active cyanocobalamin 1,000 mcg Tablet Take 1,000 mcg by mouth daily. Active aspirin (ECOTRIN EC) 81 mg Tablet, Delayed Release (E.C.) Take 81 mg by mouth daily. Active FeroSuL 325 mg (65 mg iron) tablet Take 1 Tablet (325 mg) by mouth 3 times daily with meals. 90 Tablet 2 5 Active FeroSuL 325 mg (65 mg iron) tablet Take 325 mg by mouth daily. 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 05/26/2020 S/P CABG (coronary artery bypass graft) 03/14/20 17 Coronary arteriosclerosis in [place] artery 01/13 Overview (06/19/2020): Coronary arteriosclerosis in [place] artery Pure hypercholesterolemia 01/13/2015 Overview (06/19/2020): Pure hypercholesterolemia Encounters Date Type Department Care Team Description 11/09/2024 External Device Data ST[facility] ABSTRACTION Provider, Abstract 11/08/2024 External Device Data [facility] ABSTRACTION Provider, Abstract 11/06/2024 External Device Data [place] ABSTRACTION Provider, Abstract 10/28/2024 2:30 PM MARRIAGE AND FAMILY SOCIAL WORKER Office Visit [facility] Oncology and Hematology - Real [address] [place] [address] Koby Vinson MD Iron deficiency anemia, unspecified iron deficiency anemia type (Primary Dx) 10/21/2024 Orders Only [facility] Oncology and Hematology - Real [address] Koby Vinson MD 10/21/2024 Abstract [facility] Oncology and Hematology - Real [address] Koby Vinson MD 10/18/2024 Abstract [facility] Oncology and Hematology - Real [address] [place] [address] Koby Vinson MD 10/15/2024 Telephone [facility] Oncology and Hematology - Real [address] Koby Vinson MD Lab Results (Low hem. ) 10/15/2024 Orders Only [facility] Oncology and Hematology - Real [address] [place] [id number] Koby Vinson MD Chronic anemia (Primary Dx) 10/01/2024 External Device Data STL ABSTRACTION Provider, Abstract 10/01/2024 Orders Only [facility] Oncology and Hematology - Real [address] Koby Vinson MD 09/11/2024 Orders Only [facility] Oncology and Hematology - [address] [place] [id number] Koby Vinson MD Chronic anemia (Primary Dx); Benign hypertension 09/11/2024 Telephone [facility] Oncology and Hematology - Real [address] [place] [address] Koby Vinson MD Anemia from Last 3 Months Immunizations Immunization Administration Dates Next Due INFLUENZA VACCINE HIGH DOSE QUADRIVALENT 65 YR UP PF IM 06/18/2020(Deferred: - Dr. Vasques states not to give yet with just having surgery) Family History Medical History Relation Name Comments Heart Disease Brother 1 Heart Disease Brother 2 Kidney Cancer Brother 2 No Known Problems Brother 3 No Known Problems Daughter 1 No Known Problems Daughter 2 Heart Disease Father Heart Disease Mother No Known Problems Sister 1 No Known Problems Sister 2 No Known Problems Sister 3 No Known Problems Sister 4 Brain Aneurysm Son Relation Name Status Comments Brother 1 Brother 2 Alive Brother 3 Alive Daughter 1 Alive Daughter 2 Alive Father Mother Sister 1 Alive Sister 2 Alive Sister 3 Alive Sister 4 Alive Son Social History Tobacco Use Types Packs/Day Years Used Date Smoking Tobacco: Every Day Cigarettes 0.3 58.2 Started: 1964 Smokeless Tobacco: Never Tobacco Cessation:Ready to Q uit: Not Asked; Counseling Given: Not Answered Alcohol Use Standard Drinks/Week Comments Yes 0 (1 standard drink = 0.6 oz pur e alcohol) twice a year Comments No Sex and Gender Information Value Date Recorded Sex Assigned at Not on file Legal Sex Female 5:09 AM MARRIAGE AND FAMILY SOCIAL WORKER Gender Identity Not on file Sexual Orientation Not on file Last Filed Vital Signs Vital Sign Reading Time Taken Comments Blood Pressure 132/77 10/28/2024 2:37 PM MARRIAGE AND FAMILY SOCIAL WORKER Pulse 60 10/28/2024 2:37 PM MARRIAGE AND FAMILY SOCIAL WORKER Temperature 36.1 C (97 F) 10/28/2024 2:37 PM MARRIAGE AND FAMILY SOCIAL WORKER Respiratory Rate 15 10/28/2024 2:37 PM MARRIAGE AND FAMILY SOCIAL WORKER Oxygen Saturation 94% 10/28/2024 2:37 PM MARRIAGE AND FAMILY SOCIAL WORKER Inhaled Oxygen Concentration - - Weight 89.9 kg (198 lb 3.2 oz) 10/28/2024 2:37 P M MARRIAGE AND FAMILY SOCIAL WORKER Height 170.2 cm (5' 7 ) 09/08/2022 3:24 PM MARRIAGE AND FAMILY SOCIAL WORKER Body Mass Index 31.04 09/08/2022 3:24 PM MARRIAGE AND FAMILY SOCIAL WORKER Plan of Treatment Upcoming Encounters Date Type Department Care Team (Late st Contact Info) Description 01/06/2025 2:00 PM CDT Office Visit [facility] Oncology and Hematology - Real [address] [facility] [address] [place] [address] Koby Vinson MD [address] [facility] [address] [place] [address] Health Maintenance Due Date Last Done Comments DTAP/TDAP/TD VACCINES (1 - Tdap) 1964 PNEUMOCOCCAL VACCINE 50+ YEARS (1 of 2 - PCV) 02/14/19 66 ZOSTER VACCINE (1 of 2) 1997 OSTEOPOROSIS SCREENING 02/15/2012 RSV VACCINE (60+ or ) (1 - 1-dose 75+ series) 2022 INFLUENZA VACCINE (#1) 2024 [place]) Prev entative Visit/Annual Wellness Visit 09/04/2024 COLORECTAL SCREENING Discontinued 05/03/2023 Colorectal Cancer Screening Discontinued FIT-DNA Q 3 years Discontinued FIT/FOBT Q 1 year Discontinued Flex Sig/CT Colonography Q 5 years Discontinued Medical Devices Implanted Type Area Water Vessel Captain Device Identifier Shelf Expiration Date Model / Serial / Lot Filler Bone Stimulan Paste 5cc W/Beads 620-005 - [id number] Implanted:Qty: 1 on 06/17/2020 by Bear Vasques MD at [facility] Biological N/A: Spine Lumbar [employer] 10/04/2022 620-005 / / [id number] Description:BRADEN [id number] Hemostatic Surgiflo 8ml W/Thrombin 2994 - [id number] Implanted:Qty: 1 on 06/17/2020 by Bear Vasques MD at [facility] Hemostatic N/A: Spine Lumbar [employer] 06/03/2021 2994 / / [id number] Tad Cdh Solera Ccm 4.08w64tx Capped [id number] - [id number] Implanted:Qty: 1 on 06/17/2020 by Bear Vasques MD at [facility] Tad N/A: Spine Lumbar [employer] SOFAM[employer]ANEK [id number] / / Description:BRADEN [id number] Tad Cdh Solera Ccm 4.89q19ib Capped [id number] - [id number] Implanted:Qty: 1 on 06/17/2020 by Bear Vasques MD at [facility] Tad N/A: Spine Lumbar [employer]ANE[employer] [id number] / / Description:LOAD # [id number] DATE 06/09/2020 Screw Pratibha De La Garza Ma 6.5x45mm 4.75 Ext Tab [id number] - [id number] Implanted:Qty: 1 on 06/17/2020 by Bear Vasques MD at [facility] Screw N/A: Spine Lumbar [employer]ANE[employer] [id number] / / Description:LOAD # [id number] DATE 06/09/2020 Screw Solera Frederic Ma 6.5x40mm 4.75 Ext Tab [id number] - [id number] Implanted:Qty: 2 on 06/17/2020 by Bear Vasques MD at [facility] N/A: Spine Lumbar [employer] [id number] / / Description:LOAD # [id number] DATE 06/09/2020 Screw Solera Frederic Ma 7.5x35mm 4.75 Ext Tab [id number] - [id number] Implanted:Qty: 2 on 06/17/2020 by Bear Vasques MD at [facility] N/A: Spine Lumbar [employer] [id number] / / Description:LOAD # [id number] DATE 06/09/2020 Screw Solera Frederic Ma 7.5x40mm 4.75 Ext Tab [id number] - [id number] Implanted:Qty: 1 on 06/17/2020 by Bear Vasques MD at [facility] N/A: Spine Lumbar [employer] [id number] / / Description:LOAD # [id number] DATE 06/09/2020 Set Screw Solera Perc 4.75mm [id number] - [id number] Implanted:Qty: 6 on 06/17/2020 by Bear Vasques MD at [facility] N/A: Spine Lumbar [employer] [id number] / / Description:LOAD # [id number] DATE 06/09/2020 Infuse Protein Kit Sm [id number] - [id number] Implanted:Qty: 1 on 06/17/2020 by Bear Vasques MD at [facility] N/A: Spine Lumbar [employer]OR [employer]ANEK 05/04/2022 [id number] / / [id number] Description:Requisition: [id number] Allograft Magnifuse Pc [id number] - [id number] Implanted:Qty: 1 on 06/17/2020 by Bear Vasques MD at [facility] N/A: Spine Lumbar [employer] 04/27/2022 [id number] / [id number] / Description:Requisition: [id number] Procedures Procedure Name Priority Date/Time Associated Diagnosis Comments CBC WITH DIFFERENTIAL Routine 10/17/2024 12:10 PM MARRIAGE AND FAMILY SOCIAL WORKER COMPREHENSIVE METABOLIC PANEL Routine 09/27/2024 1:19 PM MARRIAGE AND FAMILY SOCIAL WORKER CBC WITH AUTODIFFERENTIAL Routine 2024 1:08 PM MARRIAGE AND FAMILY SOCIAL WORKER COMPREHENSIVE METABOLIC PANEL Routine 09/27/2024 1:05 PM MARRIAGE AND FAMILY SOCIAL WORKER COLONOSCOPY REPORT Routine 05/03/2023 10 :56 AM CDT from Last 3 Months or Most Recently Relevant to Health Maintenance Results * CBC WITH DIFFERENTIAL (10/17/2024 12:10 PM MARRIAGE AND FAMILY SOCIAL WORKER) Blood us Koby Vinson MD HEMATOLOGY ORDERABLES Final Res ult * COMPREHENSIVE METABOLIC PANEL (09/27/2024 1:19 PM MARRIAGE AND FAMILY SOCIAL WORKER) Only the most recent of2 resultswithin the time period is included. Blood us Koby Vinson MD CHEMISTRY ORDERABLES Final Resu lt * CBC WITH AUTODIFFERENTIAL (09/27/2024 1:08 PM MARRIAGE AND FAMILY SOCIAL WORKER) Blood us Koby Vinson MD HEMATOLOGY ORDERABLES Final Res ult * COLONOSCOPY REPORT (05/03/2023 10:56 AM CDT) us Koby Vinson MD GI PROCEDURE ORDERABLES Final R esult from Last 3 Months or Most Recently Relevant to Health Maintenance Insurance RX [employer] RX Member Subscriber Plan / Payer (Ef fective 2019-Present) Name:Yvonne Cunningham Relation to Subscriber:Self Name:Yvonne Cunningham Payer ID:Not on file Group ID:[id number] Type:RX Medicare Part D Address: [address] RX AETNA Commercial AETNA [id number] [facility] Advance Directives For more information, please contact: [phone] Documents on File Type Date Recorded Patient Finish Repairer Expl anation Advance Directive POA 06/11/2020 1:30 PM A dvance Directive POA * Full Code (Latest Code Status on File) Date Activated Date Inactivated Comments 06/17/2020 3:50 PM 06/20/2020 6:06 PM * Full Code Date Activated Date Inactivated Comments 06/17/2020 9:10 AM 06/17/2020 3:50 PM * Full Code Date Activated Date Inactivated Comments 06/17/2020 7:51 AM 06/17/2020 9:10 AM Care Teams Machine Welder Relationship Specialty Start Date End Date Murray [place] [address] [place] [address] PCP - General Family Practice 05/25/20
--- OUTSIDE RECORDS SUMMARY | 2024-11-12 01:01 | XMS_ITS | Encounter Summary ---
Author Organization [facility] Address [address] [place] [address] Care Team Providers Care Statistical Modeler Name Role Phone Rangel Mejia Primary Care Provider [phone] Murray Bourne MD Primary Care Provider Encounter Details Date Type Department Care Team (Late st Contact Info) Description 12/13/2016 Orders Only [facility] ProviderNeftaly MD [address] [place] [address] Social History Tobacco Use Types Packs/Day Years Used Date Smoking Tobacco: Former Cigarettes Q uit: 09/04/2007 Alcohol Use Standard Drinks/Week Comments Yes 0 (1 standard drink = 0.6 oz pur e alcohol) Comments Unknown Sex and Gender Information Value Date Recorded Sex Assigned at Not on file Legal Sex Female 2:02 AM HYDRAULIC PLUMBER HELPER Gender Identity Female 04/28/2020 9:32 AM CDT Sexual Orientation Straight 04/28/2020 9: 32 AM CDT documented as of this encounter Plan of Treatment Not on file documented as of this encounter Procedures Procedure Name Priority Date/Time Associated Diagnosis Comments CARDIOLOGY REPORT 12/13/2016 documented in this encounter Results * CARDIOLOGY REPORT (12/13/2016) Anatomical Region Laterality Modality Other Narrative 12/13/2016 Ordered by an unspecified provider. Historical Provider CV CARDIAC SERVICES PROCE DURES Final Result documented in this encounter Visit Diagnoses Not on filedocumented in this encounter Care Teams Statistical Modeler Relationship Specialty Start Date End Date Rangel Mejia [address] [facility] [place] [address] PCP - General 12/02/16 04/02/18 Murray Bourne MD [address] [place] [address] PCP - General Family Practice 05/16/23 documented as of this encounter
--- OUTSIDE RECORDS SUMMARY | 2024-11-12 01:01 | XMS_ITS | Patient Health Summary ---
Author Organization [facility] Address [address] [place] [address] Care Team Providers Care Art Display Maker Name Role Phone Unavailable Primary Care Provider Unavailabl e Note from [facility],non-owned Affiliates and Associated Physician Practices is amultiple site organization consisting of ambulatory clinics and hospital sitesin [place], [place], [place] and [place]. This disclosure is being madepursuant to the Care Everywhere program and may not contain all information available regarding this patient. Last updated 18.[facility] Social History Tobacco Use Types Packs/Day Years Used Date Smoking Tobacco: Never Assessed Sex and Gender Information Value Date Recorded Sex Assigned at Not on file Gender Identity Not on file Sexual Orientation Not on file Procedures * BONE MARROW BIOPSY (STL)(Performed 01/26/2023) Performed for Illness, unspecified * FLOW CYTOMETRY BONE MARROW(Performed 01/26/2023) Performed for Anemia in other chronic diseases classified elsewhere Results * FLOW CYTOMETRY BONE MARROW (01/26/2023 9:23 AM CDT) Case Report Flow Cytometry Case: [id number] Authorizing Provider: Bola Arzola MD Collected: 01/26/2023 09:23 AM Ordering Location: [facility] Pathology Lab Received: 01/26/2023 12:48 PM Pathologist: Dav Hinds MD Specimen: Bone Marrow 01/26/2023 5:16 PM CDT [facility] PATH[facility] Final Diagnosis Bone marrow, flow cytometric immunophenotypic analysis: - No evidence of non-Hodgkin lymphoma or high-grade myeloid neoplasm. - See interpretation. 01/26/2023 5:16 PM CDT [facility] Flow Cytometry Interpretation The bone [...] the flow cytometry specimen is reviewed for quality assurance analyst purposes. The bone marrow aspirate specimen shows no evidence of involvement by non-Hodgkin lymphoma or a high-grade myeloid neoplasm. Correlation with clinical findings, the concurrent bone marrow core biopsy, and relevant cytogenetic/molecu lar studies is required. 01/26/2023 5:16 PM [facility] PATHOLOGY LAB Flow Cytometry Results Differential Result Comment Flow Cell Count /uL 21,300 Total Viability % 94.0 Lymphocytes % 17 Dim CD45 Region % 11 Monocytes % 9 Granulocytes % 63 01/26/2023 5:16 PM CDT [facility] PATH[facility] Reason for test Anemia in other chronic diseases classified elsewhere [facility]2023 5:[facility] Client Specimen ID # [id number] 01/26/2023 5:16 PM [facility] PATHOLOGY LAB Number of markers 10 were performed. A-2 Flow CD10 A-3 Flow CD13 A-5 Flow CD20 A-1 Flow CD5 A-4 Flow CD19 A-6 Flow CD33 A-7 Flow CD34 A-8 Flow CD45 A-9 Onsted+CD19+ A-10 Lambda+CD19+ 01/26/2023 5:16 PM CDT [facility] PATH[facility] Pathologist Location at [facility] 01/26/2023 5:16 PM CDT [facility] PATHOLOGY LAB Disclaimer Test performed at [facility], [address] [place] [address], [address]. *The established laboratory minimum viability is 70%. [...] complexity clinical testing. 01/26/2023 5:16 PM CDT [facility] PATHOLOGY LAB Embedded Images 5:16 PM CDT [facility] Pathology/Cytolo gy BONE MARROW SPECIMEN / Unknown 01/26/2023 9:23 AM CDT 01/26/2023 12:48 PM CDT Bola Arzola MD LAB - PATHOLOGY/CYTO LOGY ORDERABLES [facility] PATHOLOGY [facility] [address] [phone] * BONE MARROW BIOPSY (STL) (01/26/2023 9:23 AM CDT) Case Report Bone Marrow Patholog y Report Case: [id number] Authorizing Provider: Bola Arzola MD Collected: 01/26/2023 09:23 AM Ordering Location: [facility] Pathology Lab Received: 02/01/2023 08:23 AM Pathologist: Chana Powers MD Specimens: A) - Bone Marrow Clot, bone marrow aspirate B) - Bone Marrow Core, right hip 02/02/2023 9:35 AM CDT [facility] PATH[facility] Final Diagnosis Bone marrow, aspirate, clot section, and core biopsy: - Normocellular marrow with maturing trilineage hematopoiesis. - No evidence of lymphoma, high-grade myeloid neoplasm, or metastatic disease. - See description. Peripheral blood smear: - Macrocytic anemia. - See description. 02/02/2023 9:35 AM CDT [facility] PATH[facility] Comment Immunohistochemistry is performed to assess staining cells in an architectural context: CD3 and CD20 highlight the reactive appearing lymphoid aggregates. CD34 is negative for increased blasts. CD138 is negative for increased plasma cells. 02/02/2023 9:35 AM [facility] PATH[facility] Peripheral Smear Description RBC: macrocytic anemia. WBC: normal in number and morphology. Platelets: normal in number and morphology. 02/02/2023 9:35 AM [facility] PATH[facility] Bone Marrow Aspirate Differential count (200 cells): normal differential count.. Specimen quality: adequate. Spicules: many. Trilineage Hematopoiesis: present. Myeloid:Erythroid ratio: normal. Myeloid Maturation: normal. Erythroid Maturation: normal. Megakaryocyte morphology: normal size. Storage iron (by special stain): increased. Sideroblastic iron (by special stain): no ring sideroblasts. 02/02/2023 9:35 AM [facility] Bone Marrow Core Biopsy and Clot Section Description Specimen quality: adequate with 1.7 cm of evaluable marrow. Cellularity: 30% Trilineage Hematopoiesis: present. Myeloid to Erythroid ratio: normal. Myeloid maturation and localization: normal. Erythroid maturation and localization: normal. Megakaryocyte number: normal. Megakaryocyte distribution: normal. Lymphoid aggregates: present, non-paratrabecular involving ~3% of marrow cellularity, reactive in appearance. Bone trabeculae: thin. Blood vessels: normal. Plasma cells: normal. Clot section marrow particles: numerous. Clot section morphology: similar to core biopsy. 02/02/2023 9:35 AM [facility] Flow Cytometry Summary Bone marrow, flow cytometric immunophenotypic analysis ([id number]): - No evidence of non-Hodgkin lymphoma or high-grade myeloid neoplasm. 02/02/2023 9:35 AM [facility] Clinical History Macrocytic anemia. History of colon cancer. 02/02/2023 9:35 AM [facility] PATH[facility] Materials Received Received are 21 slide(s), and 3 blocks (A1; A2, B1) labeled [id number] along with a copy of the outside pathology report. [place] [address]. All original materials are returned to the referring institution, along with a copy of our final report. 02/02/2023 9:35 AM [facility] Pathologist Location at [facility] 02/02/2023 9:35 AM [facility] Disclaimer The performance characteristics of all immunohistochemical and indirect immunofluorescence stains (if any) cited in this report were determined by the Histopathology Laboratory of [facility]. Some of these tests were developed by our own laboratory and have not been cleared or approved by the US Food and Drug Administration. The FDA does not require this test to go through premarket FDA review. These tests are used for clinical purposes. They should not be regarded as investigational or for research. This laboratory is certified under the Clinical Laboratory Improvement Amendments (CLIA) as qualified to perform high complexity clinical laboratory testing. This case has been personally reviewed and interpreted by the attending (teaching) pathologist. 02/02/2023 9:35 AM CDT [facility] Embedded Images 02/02/2023 9:35 AM CDT [facility] Pathology/Cytology BONE MARROW SPECIMEN / Unknown 01/26/2023 9:23 AM CDT 02/01/2023 8:23 AM CDT Miscellaneous samples (specimen) BONE MARROW SPECIMEN / Unknown 01/26/2023 9:23 AM CDT 02/01/2023 8:23 AM CDT Bola Arzola MD LAB - PATHOLOGY/CYTO LOGY ORDERABLES [facility] [address] [place], [place] [address] [phone]
--- OUTSIDE RECORDS SUMMARY | 2024-11-12 01:01 | XMS_ITS | Encounter Summary ---
Author Organization [facility] Address [address] [place] [address] Care Team Providers Care Supervisor Hot Strip Mill Name Role Phone Murray Bourne MD Primary Care Provider Reason for Visit * Reason Onset Date Comments Needs hospitalist 06/18/2020 Gave message t o ELEVATOR SERVICE MECHANIC Aubree on cell phone Encounter Details Date Type Department Care Team (Late Contact Info) Description 06/18/2020 Telephone [facility] Admitting [address] [place] [address] [place] [address] [facility] [address] [place], [place] [id number] Needs hospitalist (Gave message to ELEVATOR SERVICE MECHANIC Aubree on cell phone) Social History Tobacco Use Types Packs/Day Years Used Date Smoking Tobacco: Every Day Cigarettes Smokeless Tobacco: Never Alcohol Use Standard Drinks/Week Comments Yes 0 (1 standard drink = 0.6 oz pur e alcohol) twice a year Comments No Sex and Gender Information Value Date Recorded Sex Assigned at Not on file Legal Sex Female 5:09 AM COMPRESSED GAS EQUIPMENT MECHANIC Gender Identity Not on file Sexual Orientation Not on file COVID-19 Exposure Response Date Recorded In the last month, have you been in contact with someone who was confirmed or suspected to have Coronavirus / COVID-19? No / Unsure 06/17/2020 7:05 AM CDT documented as of this encounter Plan of Treatment Upcoming Encounters Date Type Department Care Team (Late st Contact Info) Description 01/06/2025 2:00 PM CDT Office Visit [facility] Oncology and Hematology - Real [address] [facility] [address] [place] [address] Koby Vinson MD [address] [facility] [address] [place] [address] documented as of this encounter Visit Diagnoses Not on filedocumented in this encounter Care Teams Supervisor [employer] Strip Mill Relationship Specialty Start Date End Date Murray Bourne MD [address] [place] [address] PCP - General Family Practice 05/25/20 documented as of this encounter
--- OUTSIDE RECORDS SUMMARY | 2024-11-12 01:01 | XMS_ITS | CONTINUITY OF CARE DOCUMENT ---
Author Name mela plaza Address Unknown Organization [facility] Address [id number] [place] [address] [address] [place] [address] Phone [phone] Care Team Providers Care Customer Experience Associate Name Role Phone Annalisa YAÑEZ, Silvio Unavailable JOEY BOSWELL MD Unavailable INSURANCE PROVIDERS Payer name Policy type / Coverage type [place] red libertarian ID UHC MEDICARE COMPLETE HMO Other [id number]
--- OUTSIDE RECORDS SUMMARY | 2024-11-12 01:01 | XMS_ITS | Encounter Summary ---
Author Organization [facility] Address [address] [place] [address] Care Team Providers Care Utilities Service Investigator Name Role Phone Unavailable Primary Care Provider Unavailabl e Encounter Details Date Type Department Care Team (Late st Contact Info) Description 02/01/[address] [facility] - Pathology Lab [address] [place] [address] Bola Arzola MD [facility] [address] [address] Illness, unspecified Social History Tobacco Use Types Packs/Day Years Used Date Smoking Tobacco: Never Assessed Sex and Gender Information Value Date Recorded Sex Assigned at Not on file Gender Identity Not on file Sexual Orientation Not on file documented as of this encounter Plan of Treatment Not on file documented as of this encounter Procedures Procedure Name Priority Date/Time Associated Diagnosis Comments BONE MARROW BIOPSY (STL) Routine 01/26/2023 9:23 AM CDT Illness, unspecified documented in this encounter Results * BONE MARROW BIOPSY (STL) (01/26/2023 9:23 AM CDT) Case Report Bone Marrow Patholog y Report Case: [id number] Authorizing Provider: Bola Arzola MD Collected: 01/26/2023 09:23 AM Ordering Location: [facility] Received: 02/01/2023 08:23 AM Pathologist: Chana Powers MD Specimens: A) - Bone Marrow Clot, bone marrow aspirate B) - Bone Marrow Core, right hip 02/02/2023 9:35 AM [facility] Final Diagnosis Bone marrow, aspirate, clot section, and core biopsy: - Normocellular marrow with maturing trilineage hematopoiesis. - No evidence of lymphoma, high-grade myeloid neoplasm, or metastatic disease. - See description. Peripheral blood smear: - Macrocytic anemia. - See description. 02/02/2023 9:35 AM [facility] Comment Immunohistochemistry is performed to assess staining cells in an architectural context: CD3 and CD20 highlight the reactive appearing lymphoid aggregates. CD34 is negative for increased blasts. CD138 is negative for increased plasma cells. 02/02/2023 9:35 AM [facility] Peripheral Smear Description RBC: macrocytic anemia. WBC: normal in number and morphology. Platelets: normal in number and morphology. 02/02/2023 9:35 AM [facility] Bone Marrow Aspirate Differential count (200 cells): normal differential count.. Specimen quality: adequate. Spicules: many. Trilineage Hematopoiesis: present. Myeloid:Erythroid ratio: normal. Myeloid Maturation: normal. Erythroid Maturation: normal. Megakaryocyte morphology: normal size. Storage iron (by special stain): increased. Sideroblastic iron (by special stain): no ring sideroblasts. 02/02/2023 9:35 AM [facility] Bone Marrow Core Biopsy [...] similar to core biopsy. 02/02/2023 9:35 AM [facility] Flow Cytometry Summary Bone marrow, flow cytometric immunophenotypic analysis ([id number]): - No evidence of non-Hodgkin lymphoma or high-grade myeloid neoplasm. 02/02/2023 9:35 AM [facility] Clinical History Macrocytic anemia. History of colon cancer. 02/02/2023 9:35 AM T [facility] Materials Received Received are 21 slide(s), and 3 blocks (A1; A2, B1) labeled [id number] along with a copy of the outside pathology report. The materials originate from [address] [place] [address]. All original materials are returned to the referring institution, along with a copy of our final report. 02/02/2023 9:35 AM T [facility] Pathologist Location at [facility] 02/02/2023 9:35 AM T [facility] Disclaimer The performance characteristics of all immunohistochemical and indirect immunofluorescence stains (if any) cited in this report were determined by the Histopathology Laboratory of [facility]. Some of these tests were developed by [...] the attending (teaching) pathologist. 02/02/2023 9:35 AM T [facility] Embedded Images 02/02/2023 9:35 AM CDT [facility] Pathology/Cytology BONE MARROW SPECIMEN / Unknown 01/26/2023 9:23 AM CDT 02/01/2023 8:23 AM CDT Miscellaneous samples (specimen) BONE MARROW SPECIMEN / Unknown 01/26/2023 9:23 AM CDT 02/01/2023 8:23 AM CDT Bola Arzola MD LAB - PATHOLOGY/CYTO LOGY ORDERABLES [facility] [address] [place], [place] [id number] [place] [address] documented in this encounter Visit Diagnoses Diagnosis Illness, unspecified documented in this encounter
--- OUTSIDE RECORDS SUMMARY | 2024-11-12 01:01 | XMS_ITS | Encounter Summary ---
Author Organization [facility] Address [address] [place] [address] Care Team Providers Care Pneumatic Tube Fitter Name Role Phone Murray Bourne MD Primary Care Provider Encounter Details Date Type Department Care Team (Late Contact Info) Description 11/09/2024 External Device Data STL ABSTRACTION Provider, Abstract NO ADDRESS ON FILE Social History Tobacco Use Types Packs/Day Years Used Date Smoking Tobacco: Every Day Cigarettes 0.3 58.2 Started: 1965 Smokeless Tobacco: Never Alcohol Use Standard Drinks/Week Comments Yes 0 (1 standard drink = 0.6 oz pur e alcohol) twice a year Comments No Sex and Gender Information Value Date Recorded Sex Assigned at Not on file Legal Sex Female 5:09 AM 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 Oncology and Hematology - Real [address] [facility] [address] [place] [address] Koby Vinson MD [address] [facility] [address] [place] [address] documented as of this encounter Visit Diagnoses Not on filedocumented in this encounter Care Teams Pneumatic Tube Fitter Relationship Specialty Start Date End Date Murray Bourne MD [address] [place] [address] PCP - General Family Practice 05/25/20 documented as of this encounter
--- OUTSIDE RECORDS SUMMARY | 2024-11-12 01:01 | XMS_ITS | Encounter Summary ---
Author Organization [facility] Address [address] [place] [address] Care Team Providers Care Manager Machine Name Role Phone Murray Bourne MD Primary Care Provider Encounter Details Date Type Department Care Team (Latest Contact Info) Description 08/18/2006 Outpatient Historical HIS CARD SUPERVISOR CENTRAL SUPPLY Derrick Bird MD [address] [facility] [address] [place] [address] Coronary Atherosclerosis of [place] Coronary Artery (Primary Dx) Social History Tobacco Use Types Packs/Day Years Used Date Smoking Tobacco: Never Assessed Comments Unknown Sex and Gender Information Value Date Recorded Sex Assigned at Not on file Legal Sex Female 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 Gender Identity Not on file Sexual Orientation Not on file documented as of this encounter Plan of Treatment Upcoming Encounters Date Type Department Care Team (Late st Contact Info) Description 01/06/2025 2:00 PM CDT Office Visit [facility] Oncology and Hematology - Real [address] [place] [address] Koby Vinson MD [address] [facility] [address] [place] [address] documented as of this encounter Visit Diagnoses Diagnosis Coronary atherosclerosis of [place] coronary artery- Primary documented in this encounter Care Teams Manager Machine Relationship Specialty Start Date End Date Murray Bourne MD [address] [place] [address] PCP - General Family Practice 05/25/20 documented as of this encounter
[2024-11-12 07:31] VITALS: BP 163/58; PULSE 69; RESP 18; TEMP 36.2; O2SAT 96
[2024-11-12] MEDS: LACTATED RINGERS 1,000 ML 150 ML IV CONT (07:37)
--- NOTE | 2024-11-12 07:43 | P.PNAN_ITS ---
Anes - Initial Pre Proc Eval Procedure: Operation Date: 11/12/24 08:30 Proposed Procedures p Esophagogastroduodenoscopy & Colonoscopy - Rboert Jack MD Date/Time: 11/12/24 07:43 Surgeon: Robert Jack MD Pre Op Diagnosis: GERD, Duodenal Ulcer, Current antithrombotics, Patient Data Age: 79 Gender: F Height: 1.7 m Weight: 88.6 kg Last Vital Signs Temp 36.2 C L 11/12/24 07:31 Pulse 69 11/12/24 07:31 Resp 18 11/12/24 07:31 BP 163/58 H 11/12/24 07:31 Pulse Ox 96 11/12/24 07:31 O2 Del Method Room Air 11/12/24 07:31 Allergies Allergy/AdvReac Type Severity Reaction Status Date / Time No Known Allergies Allergy Verified 11/12/24 07:27 Home Medications ?Medication ?Instructions ?Recorded ?Confirmed ?Type amlodipine 5 mg tablet 5 mg PO DAILY 09/21/19 11/12/24 History aspirin 81 mg chewable tablet 81 mg PO DAILY 09/21/19 11/12/24 History metoprolol tartrate 25 mg tablet 12.5 mg PO BID 09/21/19 11/12/24 History omega-3 fatty acids-fish oil 340 1 cap PO DAILY 09/21/19 11/12/24 History mg-1,000 mg capsule nitroglycerin 0.4 mg sublingual 0.4 mg sublingual DIRECTED PRN 09/24/19 11/11/24 Rx tablet chest pain #25 tabs pantoprazole 40 mg tablet,delayed 40 mg PO DAILY #30 tabs 09/24/19 11/12/24 Rx release atorvastatin 40 mg tablet 40 mg PO QHS 07/01/21 11/12/24 History furosemide 20 mg tablet (Lasix) 20 mg PO QAM #90 tabs 04/18/24 11/12/24 Rx lisinopril 10 mg tablet 10 mg PO DAILY #90 tabs 04/18/24 11/12/24 Rx paroxetine HCl 20 mg tablet 20 mg PO DAILY #90 tabs 04/18/24 11/12/24 Rx folic acid 400 mcg tablet 0.4 mg PO BID #180 tabs 08/05/24 11/12/24 Rx mecobalamin (vitamin B12) 1,000 1,000 mcg sublingual DAILY #90 tabs 08/05/24 11/12/24 Rx mcg disintegrating tablet,sublingual tramadol 50 mg tablet 50 mg PO Q8H PRN pain #90 tabs 09/11/24 11/12/24 Rx acetaminophen 650 mg tablet 650 mg PO BID PRN Pain 10/02/24 11/11/24 History cholecalciferol (vitamin D3) 50 50 mcg PO DAILY 10/02/24 11/12/24 History mcg (2,000 unit) capsule ferrous sulfate 325 mg (65 mg 325 mg PO BID #180 tabs 10/02/24 11/12/24 Rx iron) tablet gabapentin 300 mg capsule 300 mg PO TID PRN pain 10/02/24 11/12/24 History potassium chloride 10 mEq 10 meq PO DAILY 10/02/24 11/12/24 History tablet,extended release biotin 10,000 mcg chewable tablet 10,000 mcg PO DAILY 11/11/24 11/12/24 History (Hair, Skin and Nails (biotin)) Patient hx anesthesia problems: none Family hx anesthesia problems: none Results Review: All pre-operative results and documents have been reviewed as part of the pre- operative evaluation. [facility] Past Medical History Medical History Atrial flutter, paroxysmal Hemangioma of bone Cerebral aneurysm Foreign body ingestion Occult blood in stools Displaced fracture of fifth metatarsal bone, left foot, initial encounter for open fracture Traumatic ecchymosis of right elbow Chronic low back pain Synostosis (cranial) Heart attack Restless legs syndrome History of stroke 03/2021 Middle cerebral artery aneurysm Coronary artery disease Acute cerebrovascular accident (CVA) 03/2021 B12 deficiency Non-STEMI (non-ST elevated myocardial infarction) September 2019 with left heart catheterization demonstrating modest left main disease, total occlusion of LAD and right coronary artery proximally, modest 40-50% stenosis of the 1st obtuse marginal branch of the circumflex, remaining patency of GARCIA to LAD, patency of saphenous vein graft to RCA, occlusion of the proximal aspect of the vein graft to the 1st obtuse marginal branch circumflex, mild left ventricular systolic dysfunction with posterior basal akinesis with good ejection fraction with medical therapy recommended. 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 She has 2 daughters and 1 son. Patient used to work for [employer]. The patient has been smoking for approximately 25-30 years. She quit at 1 point and then restarted. She is currently smoking 1/3 of a pack per day. Carlene Loja, her daughter, is her durable power defense attorney for healthcare. The patient desires to be a full code. Caffeine-daily Smoking packs per day: 0.5 Smoking cigarettes per day: 10.0 Years smoked: 56 Smoking pack-years: 28.00 Smoking status: Current every day smoker Tobacco type: cigarettes Second hand tobacco smoke exposure: Yes Additional smoking assessment comments: patient states she smokes 2 citgarretttes/day Alcohol intake: current Drinks per week: 7 Alcohol use details: 1 shot per night Substance use: current Substance use type: marijuana Other substance usage details: Marijuana once a week for pain Last use: 04/30/19 Do You Feel Safe in your Home?: Yes Lack of Transportation: No Lack of Food: Never True Current Housing: I Do Not Have Housing Concerned About Future Housing: No Difficulty Paying Gas/Electric Bills: No Difficulty Paying for Meds: No Currently Unemployed: No Education: High School Diploma/GED Difficulty w/ Childcare or Family Care: No Living arrangements: alone Occupation/Education: retired Gender identity (if verbalized by the patient): Female Sexual Orientation (if Verbalized by the Patient): Straight or Heterosexual Spiritual care concerns: No Agree to blood products: Yes Anes - Eval Final PreProcedure Day of Procedure 11/12/24 07:43 Patient weight: obese Heart: regular rate and rhythm Lungs: clear to auscultation Airway: Mallampati scale class II Last oral intake: >/= 8 hours ASA classification: III Emergent: no Anesthetic plan: proceed Anesthesia type and monitoring: general GIVS and standard monitoring Results Review: All pre-operative results and documents have been reviewed as part of the pre- operative evaluation. Informed Consent: The patient's anesthetic plan and its attendant risks and benefits were discussed with the patient/family/POA. Questions were solicited and answers provided to the satisfaction of the patient/family/POA.
--- NOTE | 2024-11-12 08:20 | WPDHPUPDATE1 ---
History and Physical Update Update Date/Time: 11/12/24 08:20 History and Physical has been reviewed, including an updated exam of the patient. There are NO changes in the patient's condition. Risks, benefits, and alternatives have been discussed and questions answered. Patient agrees to proceed with procedure.
--- NOTE | 2024-11-12 08:29 | SUR.OPER ---
EGD: [id number] Colon: [id number]
[2024-11-12 08:46] VITALS: BP 121/72; PULSE 56; RESP 20; O2SAT 100
[2024-11-12 08:56] VITALS: BP 150/52; PULSE 58; RESP 18; O2SAT 99
[2024-11-12 09:06] VITALS: BP 146/48; PULSE 60; RESP 18; O2SAT 97
== END 2024-11-12 09:26 | disposition home or self-care (01) ==
PROVIDERS: PCP Family Medicine; Referring Provider Nurse Practitioner Family; Visit Provider Internal Medicine Gastroenterology
PROC: 0DJ08ZZ Inspection of Upper Intestinal Tract, Via Natural or Artificial Opening Endoscopic (ICD-10-PCS; CPT 45378; principal; 2024-11-12 08:30)
DX: D50.9 Iron deficiency anemia, unspecified (principal); K63.5 Polyp of colon; K64.8 Other hemorrhoids; Z85.038 Personal history of other malignant neoplasm of large intestine; Z90.49 Acquired absence of other specified parts of digestive tract; Z98.0 Intestinal bypass and anastomosis status; Z87.11 Personal history of peptic ulcer disease; F17.210 Nicotine dependence, cigarettes, uncomplicated; F12.90 Cannabis use, unspecified, uncomplicated; E66.9 Obesity, unspecified; Z68.30 Body mass index [BMI] 30.0-30.9, adult
CPT/HCPCS: 45385; 43235; 88305; J2704; J7120

== ENCOUNTER 2024-12-06 06:11 | Outpatient (CLI) | payer MEDICARE, SELFPAY ==
--- NOTE | 2024-11-22 10:37 | SUR.PREOP ---
Spoke with patient in regards to Givens capsule endoscopy. Verified date and time and patient will be emailed her instructions. Encouraged her to call us if she had any questions once those instructions were received.
--- OUTSIDE RECORDS SUMMARY | 2024-12-06 06:14 | XMS_ITS | Encounter Summary ---
Author Organization [facility] Address [address] [place] [address] Care Team Providers Care Pest Control Applicator Name Role Phone Murray Bourne MD Primary Care Provider Encounter Details Date Type Department Care Team (Latest Contact Info) Description 06/19/2008 Outpatient Historical HIS [facility] JAVIER Willis, Viktoriya Allen MD [address] [place], [place] [id number] [place] [address] Coronary Atherosclerosis of [place] Coronary Artery Social History Tobacco Use Types Packs/Day Years Used Date Smoking Tobacco: Never Assessed Comments Unknown Sex and Gender Information Value Date Recorded Sex Assigned at Not on file Legal Sex Female 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 Gender Identity Not on file Sexual Orientation Not on file documented as of this encounter Plan of Treatment Upcoming Encounters Date Type Department Care Team (Late st Contact Info) Description 01/06/2025 2:00 PM CDT Office Visit [facility] Oncology and Hematology - Real [address] [facility] [place] [address] Koby Vinson MD [address] [facility] [address] [place] [address] documented as of this encounter Procedures Procedure Name Priority Date/Time Associated Diagnosis Comments XR CHEST PA AND LATERAL 2 VW Routine 06/19/2008 12:37 PM CDT documented in this encounter Results * XR CHEST PA AND LATERAL (06/19/2008 12:37 PM CDT) Anatomical Region Laterality Modality Chest Other 06/19/2008 12:3 7 PM CDT Narrative 06/19/2008 12:42 PM CDT [address] [address] Admit Date: 06/19/2008 YVONNE CUNNINGHAM Sex: F Admit Prov: VIKTORIYA WILLIS Date: 1945 Primary Care Prov: CMRN: [id number] [id number] Ordering Prov: N/A Accession Number: [id number] Interpretation Chest 2 views 06/19/2008. History: Coronary vascular disease. Findings: Comparison study is dated 05/23/2008. Small left pleural effusion has decreased. The left lower lobe atelectasis has resolved . No pneumothorax is seen. The cardiac silhouette is mildly enlarged. . Dictated by: ZOYE COWART 06/19/2008 12:40 Electronically signed by: ZOEY COWART 06/19/2008 12:41 Procedure Note Zoey Cowart - 06/19/[address] [address] Admit Date: 06/19/2008 LENINSARWATYVONNE A Sex: F Admit Prov: VIKTORIYA WILLIS Date: 1945 Primary Care Prov: CMRN: [id number] [id number] [facility] Ordering Prov: N/A Interpretation Chest [...] encounter Visit Diagnoses Diagnosis Coronary atherosclerosis of [place] coronary artery documented in this encounter Care Teams Pest Control Applicator Relationship Specialty Start Date End Date Murray Bourne MD [address] [place] [address] PCP - General Family Practice 05/25/20 documented as of this encounter
--- OUTSIDE RECORDS SUMMARY | 2024-12-06 06:15 | XMS_ITS | Clinical Summary ---
Author Organization [facility] [address] Address [address] [place] [address] Care Team Providers Care Mobile Home Installer Name Role Phone Murray Bourne MD Primary Care Provider Allergies No known active allergies Medications diphenhydrAMINE (ALLERGY RELIEF,DIPHENHY DRAMIN,) 25 mg tablet take 1 Tablet by oral route every 4 - 6 hours as needed 0 0 3 Active aspirin 81 mg tablet take 1 tablet by oral route every day 0 0 3 Active buPROPion (WELLBUTRIN) 100 mg tablet take 1 tablet by oral route 2 times every day 0 0 3 Active PARoxetine (PAXIL) 20 mg tablet take 1 Tablet by oral route every day 0 0 3 Active omega-3 fatty acids-fish oil 340-1,000 mg capsule take 1 by Oral route 2 times every day 0 3 Active acetaminophen ER (ARTHRITIS PAIN RELIEF, ACETAM,) 650 mg 8 hr tablet take 1 tablet (650MG) by oral route every 6 hours as needed 0 3 Active folic acid (FOLVITE) 400 mcg tablet Take 1 tablet (400 mcg total) by mouth daily Active cyanocobalamin (Vitamin B-12) 1,000 mcg tabletIndicatio ns:Prevention of Vitamin B12 Deficiency Take 1 tablet (1,000 mcg total) by mouth daily Active gabapentin (NEURONTIN) 300 mg capsule Take 1 capsule (300 mg total) by mouth daily Active ferrous sulfate 325 mg (65 mg of elemental iron) tabletIndicatio ns:Iron Deficiency Anemia Take 1 tablet (325 mg total) by mouth 2 (two) times a day Active nitroglycerin (NITROSTAT) 0.4 mg SL tablet DISSOLVE 1 TABLET UNDER THE TONGUE EVERY 5 MINUTES NEEDED FOR CHEST PAIN 25 tablet 3 Active Additional Information Patient not taking.Reported on 07/26/2024 furosemide (LASIX) 20 mg tablet Take 1 tablet (20 mg total) by mouth every morning 3 Active potassium chloride ER 10 mEq CR tablet Take 1 tablet/capsule (10 mEq total) by mouth daily [address] (PROTONIX) 40 mg EC tablet TAKE 1 TABLET BY MOUTH EVERY DAY 90 tablet 3 4 Active atorvastatin (LIPITOR) 40 mg tablet TAKE 1 TABLET BY MOUTH EVERY DAY 90 tablet 1 4 Active traMADoL (ULTRAM) 50 mg tablet Take 1 tablet (50 mg total) by mouth every 6 (six) hours as needed for pain Active rivaroxaban (XARELTO) 20 mg tablet Take 1 tablet (20 mg total) by mouth daily with dinner 30 tablet 11 4 Active amLODIPine (NORVASC) 5 mg tablet TAKE 1 TABLET BY MOUTH EVERY DAY 90 tablet 1 4 Active metoprolol tartrate (LOPRESSOR) 25 mg immediate release tablet TAKE 1/2 TABLET TWICE A DAY BY MOUTH 90 tablet 2 5 Active Active Problems Problem Noted Date Diagnosed Date 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 Atrial flutter 02/02/2023 S/P CABG (coronary artery bypass graft) 03/14/20 17 Pure hypercholesterolemia 01/13/2015 Overview (12/08/2016): Pure hypercholesterolemia Coronary arteriosclerosis in [place] artery 01/13 Overview (12/08/2016): Coronary arteriosclerosis in [place] artery Encounters Date Type Department Care Team Description 11/12/2024 Orders Only [facility] Health Information Management [address] [place] [address] Derrick Bird MD 09/16/2024 Telephone [facility] Cardiology [address] [place] [address] Derrick Bird MD from Last [...] on file Legal Sex Female 2:02 AM CATALYST CONCENTRATION OPERATOR Gender Identity Female 04/28/2020 9:32 AM CDT Sexual Orientation Straight 04/28/2020 9: 32 AM CDT Obstetrics History Last Filed Vital Signs Vital Sign Reading Time Taken Comments Blood Pressure 124/68 07/26/2024 10:13 AM CATALYST CONCENTRATION OPERATOR Pulse 63 07/26/2024 10:13 AM CATALYST CONCENTRATION OPERATOR Temperature - - Respiratory Rate 12 03/14/2017 11:29 AM CDT Oxygen Saturation 97% 07/26/2024 10:13 AM CATALYST CONCENTRATION OPERATOR Inhaled Oxygen Concentration - - Weight 93.4 kg (206 lb) 07/26/2024 10:13 AM CATALYST CONCENTRATION OPERATOR Height 170.2 cm (5' 7 ) 07/26/2024 10:13 AM CATALYST CONCENTRATION OPERATOR Body Mass Index 32.26 07/26/2024 10:13 AM CATALYST CONCENTRATION OPERATOR Plan of Treatment Health Maintenance Due Date Last Done Comments Depression Screening 1945 Fall Risk Assessment 1945 Hepatitis C Screening 1945 Osteoporosis Screening-Bone Density Scan 1945 DTaP/Tdap/Td Vaccine (1 - Tdap) 1958 Hepatitis B Screening 1965 Pneumococcal vaccine 65+ (1 of 2 - PCV) 1966 Zoster Vaccine (1 of 2) 1997 Well Visit 65+ 02/15/2012 Influenza Vaccine (#1) 2024 06/14/2018 Procedures Procedure Name Priority Date/Time Associated Diagnosis Comments GI - RESULT 11/12/2024 from Last 3 Months Results * GI - RESULT (11/12/2024) Anatomical Region Laterality Modality Other us Derrick Bird MD Edited R esult - Final from Last 3 Months Insurance [employer] MEDICARE GOLD Care Teams Mobile Home Installer Relationship Specialty Start Date End Date Murray Bourne MD [address] [place] [address] PCP - General Family Practice 05/16/23
--- OUTSIDE RECORDS SUMMARY | 2024-12-06 06:15 | XMS_ITS | Referral Summary ---
Author Organization [facility] [address] Address [address] [place] [address] Care Team Providers Care Axle Turner Name Role Phone Murray Bourne MD Primary Care Provider Encounters Date Type Department Care Team Description 11/12/2024 Orders Only [facility] Health Information Management [address] [place] [address] Derrick Bird MD 09/16/2024 Telephone [facility] Medical [facility] Cardiology [address] [place] [address] Derrick Bird MD from Last 3 Months Allergies No known active allergies Medications diphenhydrAMINE [...] Overview (12/08/2016): Pure hypercholesterolemia Coronary arteriosclerosis in [place] artery 01/13 Overview (12/08/2016): Coronary arteriosclerosis in [place] artery Social History Tobacco Use Types Packs/Day [...] on file Legal Sex Female 2:02 AM WOOD 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 Gender Identity Female 04/28/2020 9:32 AM CDT Sexual Orientation Straight 04/28/2020 9: 32 AM CDT Last Filed Vital Signs Vital Sign Reading Time Taken Comments Blood Pressure 124/68 07/26/2024 10:13 AM WOOD BORER Pulse 63 07/26/2024 10:13 AM WOOD BORER Temperature - - Respiratory Rate 12 03/14/2017 11:29 AM CDT Oxygen Saturation 97% 07/26/2024 10:13 AM WOOD BORER Inhaled Oxygen Concentration - - Weight 93.4 kg (206 lb) 07/26/2024 10:13 AM WOOD BORER Height 170.2 cm (5' 7 ) 07/26/2024 10:13 AM WOOD BORER Body Mass Index 32.26 07/26/2024 10:13 AM WOOD BORER Plan of Treatment Not on file Procedures Procedure Name Priority Date/Time Associated Diagnosis Comments GI - RESULT 11/12/2024 from Last 3 Months Results * GI - RESULT (11/12/2024) Anatomical Region Laterality Modality Other Derrick Bird MD Edited R esult - Final from Last 3 Months Insurance [employer] MEDICARE GOLD Care Teams Axle Turner Relationship Specialty Start Date End Date Murray Bourne MD [address] [facility] [address] [address] PCP - General Family Practice 05/16/23
--- OUTSIDE RECORDS SUMMARY | 2024-12-06 06:15 | XMS_ITS | Clinical Summary ---
Author Organization [facility] Address [address] [place] [address] Care Team Providers Care Fly Finisher Name Role Phone Unavailable Primary Care Provider Unavailabl e Source Comments [facility],non-owned Affiliates and Associated Physician Practices is amultiple site organization consisting of ambulatory clinics and hospital sitesin [place], [place], [place] and [place]. This disclosure is being madepursuant to the Care Everywhere program and may not contain all information available regarding this patient. Last updated 18.[facility] Social History Tobacco Use Types Packs/Day Years [...] VACCINE ( - 2023-2 5 season) 2024 DEPRESSION SCREENING 09/04/2024 MEDICARE AWV CALENDAR YEAR 2024 INFLUENZA VACCINE (Season Ended) 2025 HEPATITIS B VACCINE Aged Out No longe r eligible based on patient's age to complete this topic HIB VACCINE Aged Out No longer eligi ble based on patient's age to complete this topic HPV VACCINE Aged Out No longer eligi ble based on patient's age to complete this topic MENINGOCOCCAL (Group B) VACC INE SHARED DECISION-MAKING Aged Out No longer eligibl e based on patient's age to complete this topic MENINGOCOCCAL GROUPS A/C/Y/W VACCINE Aged Out No longer eligible b ased on patient's age to complete this topic
--- OUTSIDE RECORDS SUMMARY | 2024-12-06 06:15 | XMS_ITS | Encounter Summary ---
Author Organization [facility] Address [address] [place] [address] Care Team Providers Care Photo Studio Assistant Name Role Phone Murray Bourne MD Primary Care Provider Reason for Visit * Reason Onset Date Comments Needs hospitalist 06/18/2020 Gave message t o CUSTOMER EXPERIENCE LEADER Aubree on cell phone Encounter Details Date Type Department Care Team (Late Contact Info) Description 06/18/2020 Telephone [facility] Admitting [address] [place] [address] [place] [address] [facility] [address] [place], [place] [id number] Needs hospitalist (Gave message to CUSTOMER EXPERIENCE LEADER Aubree on cell phone) Social History Tobacco Use Types Packs/Day Years Used Date Smoking Tobacco: Every Day Cigarettes Smokeless Tobacco: Never Alcohol Use Standard Drinks/Week Comments Yes 0 (1 standard drink = 0.6 oz pur e alcohol) twice a year Comments No Sex and Gender Information Value Date Recorded Sex Assigned at Not on file 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 [facility] [address] [place] [address] Koby Vinson MD [address] [facility] [address] [place] [address] documented as of this encounter Visit Diagnoses Not on filedocumented in this encounter Care Teams Photo Studio Assistant Relationship Specialty Start Date End Date Murray Bourne MD [address] [place] [address] PCP - General Family Practice 05/25/20 documented as of this encounter
--- OUTSIDE RECORDS SUMMARY | 2024-12-06 06:15 | XMS_ITS | Encounter Summary ---
Author Organization [facility] Address [address] [place] [address] [place] [address] Care Team Providers Care Telecommunications Manager Name Role Phone Unavailable Primary Care Provider Unavailabl e Encounter Details Date Type Department Care Team (Late st Contact Info) Description 02/01/2023 Lab Requisition [facility] - Pathology Lab [address] [place] [address] Bola Arzola MD [facility] [address] [address] Illness, unspecified Social History Tobacco [...] Report Bone Marrow Patholog y Report Case: [id number] Authorizing Provider: Bola Arzola MD Collected: 01/26/2023 09:23 AM Ordering Location: [facility] Pathology Lab Received: 02/01/2023 08:23 AM Pathologist: Chana Powers MD Specimens: A) - Bone Marrow Clot, bone marrow aspirate B) - Bone Marrow Core, right hip 02/02/2023 9:35 AM [facility] Final Diagnosis Bone marrow, aspirate, clot section, and core biopsy: - Normocellular marrow with maturing trilineage hematopoiesis. - No evidence of lymphoma, high-grade myeloid neoplasm, or metastatic disease. - See description. Peripheral blood smear: - Macrocytic anemia. - See description. 02/02/2023 9:35 AM [facility] Comment Immunohistochemistry is performed [...] Summary Bone marrow, flow cytometric immunophenotypic analysis ([id number]): - No evidence of non-Hodgkin lymphoma or high-grade myeloid neoplasm. 02/02/2023 9:35 AM [facility] Clinical History Macrocytic anemia. History of colon cancer. 02/02/2023 9:35 AM T [facility] Materials Received Received are 21 slide(s), and 3 blocks (A1; A2, B1) labeled [id number] along with a copy of the outside pathology report. The materials originate from [address] [place] [address]. All original materials are returned to the referring institution, along with a copy of our final report. 02/02/2023 9:35 AM T [facility] Pathologist Location at [facility] 02/02/2023 9:35 AM T [facility] Disclaimer The performance characteristics of all immunohistochemical and indirect immunofluorescence stains (if any) cited in this report were determined by the Histopathology Laboratory of [facility]. Some of these tests were developed by [...] attending (teaching) pathologist. 02/02/2023 9:35 AM T [facility] Embedded Images 02/02/2023 9:35 AM CDT [facility] Pathology/Cytology BONE MARROW SPECIMEN / Unknown 01/26/2023 9:23 AM CDT 02/01/2023 8:23 AM CDT Miscellaneous samples (specimen) BONE MARROW SPECIMEN / Unknown 01/26/2023 9:23 AM CDT 02/01/2023 8:23 AM CDT Bola Arzola MD LAB - PATHOLOGY/CYTO LOGY ORDERABLES [facility] [address] [place], [place] [id number] [place] [address] documented in this encounter Visit Diagnoses Diagnosis Illness, unspecified documented in this encounter
--- OUTSIDE RECORDS SUMMARY | 2024-12-06 06:15 | XMS_ITS | Encounter Summary ---
Author Organization [facility] Address [address] [place] [address] Care Team Providers Care Biscuit Factory Worker Name Role Phone Rangel Mejia Primary Care Provider [phone] Murray Bourne MD Primary Care Provider Encounter Details Date Type Department Care Team (Late st Contact Info) Description 12/13/2016 Orders Only [facility] ProviderNeftaly MD [address] [place] [address] Social History Tobacco Use Types Packs/Day Years Used Date Smoking Tobacco: Former Cigarettes Q uit: 09/04/2007 Alcohol Use Standard Drinks/Week Comments Yes 0 (1 standard drink = 0.6 oz pur e alcohol) Comments Unknown Sex and Gender Information Value Date Recorded Sex Assigned at Not on file Legal Sex Female 2:02 AM PER DIEM PHYSICAL THERAPIST ASSISTANT Gender Identity Female 04/28/2020 9:32 AM CDT [...] on filedocumented in this encounter Care Teams Biscuit Factory Worker Relationship Specialty Start Date End Date Rangel Mejia [address] [facility] [place] [address] PCP - General 12/02/16 04/02/18 Murray Bourne MD [address] [place] [address] PCP - General Family Practice 05/16/23 documented as of this encounter
--- OUTSIDE RECORDS SUMMARY | 2024-12-06 06:15 | XMS_ITS | CONTINUITY OF CARE DOCUMENT ---
Author Name mela plaza Address Unknown Organization [facility] Address [address] [place] [address] [address] [place] [address] Phone [phone] Care Team Providers Care Dry Wall Plasterer Name Role Phone Annalisa YAÑEZ, Silvio Unavailable JOEY BOSWELL MD Unavailable [phone] [employer]ANCE PROVID[employer] Payer name Policy type / Coverage type [place] [employer] ID UHC MEDICARE COMPLETE HMO Other [id number]
--- OUTSIDE RECORDS SUMMARY | 2024-12-06 06:15 | XMS_ITS | Encounter Summary ---
Author Organization [facility] Address 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 Brijesh Bird MD [address] [facility] [place] [address] [place] [address] Viktoriya Gavin MD [address] [place], [place] [id number] [place] [phone] Other and Unspecified Angina Pectoris Social History Tobacco Use Types Packs/Day Years Used Date Smoking Tobacco: Never Assessed Comments Unknown Sex and Gender Information Value Date Recorded Sex Assigned at Not on file Legal Sex Female 5:09 AM MAMMALOGIST Gender Identity Not on file Sexual Orientation Not on file documented as of this encounter Plan of Treatment Upcoming Encounters Date Type Department Care Team (Late st Contact Info) Description 01/06/2025 2:00 PM CDT Office Visit [facility] Oncology and Hematology - Real [address] [facility] [address] [place] [address] Koby Vinson MD [address] [facility] [address] [place] [address] documented as of this encounter [...] GLUCOSE POC 113(H) 65 - 99 mg/dL [facility] Venous blood specimen (specimen) 05/24/2008 9:29 AM CDT 05/24/2008 9:29 AM CDT us Brijesh Bird MD POINT OF CARE TESTING Fin al Result INTERFACE SYSTEM Refer to clinic/hospital department [facility] CLIA# [id number] [address] [place] [address] * (ABNORMAL) POC GLUCOSE (05/24/2008 5:48 AM CDT) COMMENT, GLU POC Notified RN [facility] GLUCOSE POC 117(H) 65 - 99 mg/dL [facility] Venous blood specimen (specimen) 05/24/2008 5:48 AM CDT 05/24/2008 5:48 AM CDT us Brijesh Bird MD POINT OF CARE TESTING Fin al Result INTERFACE SYSTEM Refer to clinic/hospital department [facility] CLIA# [id number] [address] [facility] [address] [place] [address] * (ABNORMAL) CBC WITH DIFFERENTIAL (05/24/2008 4:54 AM CDT) HEMOGLOBIN 9.8(L) 11.8 - 14.8 g/dL [facility] MCHC 33.2 31.5 - 35.5 % [facility] WBC 6.4 4.0 - 9.8 K/uL [facility] MCH 30.7 27.2 - 32.6 pg [facility] HEMATOCRIT 29.5(L) 35.5 - 44.0 % [facility] RDW 14.0 11.5 - 14.5 % [facility] RBC 3.19(L) 3.90 - 4.90 M/uL [facility] MCV 92.5 82.0 - 99.0 fL [facility] RDW-STDEV 47.1 37.1 - 48.7 fL [facility] LYMPHOCYTE ABSOLUTE 1.75 0.70 - 4.50 K/uL [facility] BASOPHILS 1 0 - 2 % [facility] BASOPHILS ABSOLUTE 0.05 0.00 - 0.20 K/uL [facility] MONOCYTES 10 3 - 13 % [facility] MONOCYTE ABSOLUTE 0.62 0.10 - 1.30 K/uL [facility] NEUTROPHILS 60 45 - 70 % [facility] NEUTROPHIL ABSOLUTE 3.86 1.90 - 7.00 K/uL [facility] EOSINOPHILS 2 0 - 7 % [facility] EOSINOPHIL ABSOLUTE 0.12 0.00 - 0.70 K/uL [facility] LYMPHOCYTES 27 16 - 45 % [facility] MPV 13.2(H) 9.3 - 12.4 fL [facility] PLATELETS 114(L) 140 - 350 K/uL [facility] Comment: Platelets verified by smear review. Blood specimen (specimen) 05/24/2008 4:54 AM CDT 05/24/2008 7:30 AM CDT us Viktoriya Gavin MD HEMATOLOGY ORDERABLES Edit ed Performing Organization Address City/State/[facility] Co de Phone Number INTERFACE SYSTEM Refer to clinic/hospital department [facility] CLIA# [id number] [address] [place] [address] * (ABNORMAL) BASIC METABOLIC PANEL (05/24/2008 4:54 AM CDT) CHLORIDE 101 96 - 108 mmol/L [facility] GLUCOSE 84 65 - 99 mg/dL [facility] SODIUM 138 135 - 145 mmol/L [facility] CALCIUM 8.4(L) 8.6 - 10.2 mg/dL [facility] CO2 26 22 - 30 mmol/L [facility] CREATININE 0.60 0.51 - 0.95 mg/dL [facility] POTASSIUM 3.4(L) 3.5 - 4.9 mmol/L [facility] BUN 22(H) 6 - 20 mg/dL [facility] GFR, >60 >=60 mL/min/1. 7 sq meter [facility] GFR >60 >=60 mL/min/1. 7 sq meter [facility] Comment: Modification of Diet in Renal Disease (MDRD) study formula. Estimated GFR rate interpretative information for both Americans and non- Americans is available on the [facility] Intranet at: [email or web address] [email or web address] Select: Lab Policies and Procedures Select: Reference Ranges - GFR Blood specimen (specimen) 05/24/2008 4:54 AM CDT 05/24/2008 7:30 AM CDT Viktoriya Gavin MD CHEMISTRY ORDERABLES Edite d Performing Organization Address [facility] de Phone Number INTERFACE SYSTEM Refer to clinic/hospital department [facility] CLIA# [id number] [address] [place] [address] * MAGNESIUM LEVEL (05/24/2008 4:54 AM CDT) MAGNESIUM 2.2 1.5 - 2.5 mg/dL [facility] Blood specimen (specimen) 05/24/2008 4:54 AM CDT 05/24/2008 7:30 AM CDT Viktoriya Gavin MD CHEMISTRY ORDERABLES Final Result Performing Organization Address [facility] Phone Number INTERFACE SYSTEM Refer to clinic/hospital department [facility] CLIA# [id number] [address] [place] [address] * (ABNORMAL) POC GLUCOSE (05/24/2008 1:17 AM CDT) GLUCOSE POC 108(H) 65 - 99 mg/dL [facility] Venous blood specimen (specimen) 05/24/2008 1:17 AM CDT 05/24/2008 1:17 AM CDT Brijesh Bird MD POINT OF CARE TESTING Fin al Result Performing Organization Address [facility] de Phone Number INTERFACE SYSTEM Refer to clinic/hospital department [facility] CLIA# [id number] [address] [place] [address] * (ABNORMAL) POC GLUCOSE (05/23/2008 8:51 PM CDT) GLUCOSE POC 145(H) 65 - 99 mg/dL [facility] COMMENT, GLU POC Notified RN [facility] Venous blood specimen (specimen) 05/23/2008 8:51 PM CDT 05/23/2008 8:51 PM CDT Brijesh Bird MD POINT OF CARE TESTING Fin al Result Performing Organization Address [facility] de Phone Number INTERFACE SYSTEM Refer to clinic/hospital department [facility] CLIA# [id number] [address] [place] [place] [address] * (ABNORMAL) POC GLUCOSE (05/23/2008 4:50 PM CDT) GLUCOSE POC 121(H) 65 - 99 mg/dL [facility] Venous blood specimen (specimen) 05/23/2008 4:50 PM CDT 05/23/2008 4:50 PM CDT Brijesh Bird MD POINT OF CARE TESTING Fin al Result Performing Organization Address [facility] de Phone Number INTERFACE SYSTEM Refer to clinic/hospital department [facility] CLIA# [id number] [address] [place] [place] [address] * (ABNORMAL) POC GLUCOSE (05/23/2008 10:06 AM CDT) GLUCOSE POC 121(H) 65 - 99 mg/dL [facility] Venous blood specimen (specimen) 05/23/2008 10:06 AM CDT 05/23/2008 10:06 AM CDT Brijesh Bird MD POINT OF CARE TESTING Fin al Result Performing Organization Address [facility] de Phone Number INTERFACE SYSTEM Refer to clinic/hospital department [facility] CLIA# [id number] [address] [place] [address] * (ABNORMAL) POC GLUCOSE (05/23/2008 5:44 AM CDT) COMMENT, GLU POC Notified RN [facility] GLUCOSE POC 122(H) 65 - 99 mg/dL [facility] Venous blood specimen (specimen) 05/23/2008 5:44 AM CDT 05/23/2008 5:44 AM CDT us Brijesh Bird MD POINT OF CARE TESTING Fin al Result Performing Organization Address [facility] de Phone Number INTERFACE SYSTEM Refer to clinic/hospital department [facility] CLIA# [id number] [address] [place] [address] * XR CHEST PA AND LATERAL (05/23/2008 5:20 AM CDT) Anatomical Region Laterality Modality Chest Other 05/23/2008 5:20 AM CDT Narrative 05/23/2008 8:32 AM CDT [facility] [address] [place], [place] [address] Admit Date: 05/19/2008 ABEBE [place]ING[place]AM Sex: F Admit Prov: BRIJESH BIRD Date: 1945 Primary Care Prov: CMRN: [id number] Room: [address] [place] [address] SSN: [id number] IMAGING SERVICES Ordering Prov: N/A Accession Number: [id number] Interpretation EXAM: CHEST X-RAY, PA AND LATERAL, [...] DKT Procedure Note Brijesh Dover - 05/23/2008 [facility] [address] [place], [place] [address] Admit Date: 05/19/2008 LENIN ABEBE Glez Sex: F Admit Prov: BRIJESH BIRD Date: 1945 Primary Care Prov: CMRN: [id number] Room: [address] [place] [address] SSN: [id number] IMAGING SERVICES Ordering Prov: N/A Interpretation EXAM: [...] CDT) RDW 14.3 11.5 - 14.5 % [facility] WBC 7.6 4.0 - 9.8 K/uL [facility] MCH 30.5 27.2 - 32.6 pg [facility] MPV 13.0(H) 9.3 - 12.4 fL [facility] HEMATOCRIT 31.9(L) 35.5 - 44.0 % [facility] RDW-STDEV 48.2 37.1 - 48.7 fL [facility] RBC 3.44(L) 3.90 - 4.90 M/uL [facility] MCHC 32.9 31.5 - 35.5 % [facility] MCV 92.7 82.0 - 99.0 fL [facility] PLATELETS 109(L) 140 - 350 K/uL [facility] HEMOGLOBIN 10.5(L) 11.8 - 14.8 g/dL [facility] LYMPHOCYTES 21 16 - 45 % [facility] LYMPHOCYTE ABSOLUTE 1.62 0.70 - 4.50 K/uL [facility] BASOPHILS 1 0 - 2 % [facility] BASOPHILS ABSOLUTE 0.05 0.00 - 0.20 K/uL [facility] MONOCYTES 10 3 - 13 % [facility] MONOCYTE ABSOLUTE 0.78 0.10 - 1.30 K/uL [facility] NEUTROPHILS 66 45 - 70 % [facility] NEUTROPHIL ABSOLUTE 5.06 1.90 - 7.00 K/uL [facility] EOSINOPHILS 1 0 - 7 % [facility] EOSINOPHIL ABSOLUTE 0.11 0.00 - 0.70 K/uL [facility] Blood specimen (specimen) 05/23/2008 5:00 AM CDT 05/23/2008 6:12 AM CDT Radha CONTI HEMATOLOGY ORDERABLES Edited Performing Organization Address [facility] de Phone Number INTERFACE SYSTEM Refer to clinic/hospital department [facility] CLIA# [id number] [address] [place] [address] * MAGNESIUM LEVEL (05/23/2008 5:00 AM CDT) MAGNESIUM 2.1 1.5 - 2.5 mg/dL [facility] Blood specimen (specimen) 05/23/2008 5:00 AM CDT 05/23/2008 6:10 AM CDT us Radha CONTI CHEMISTRY ORDERABLES Final Resu lt Performing Organization Address [facility] Phone Number INTERFACE SYSTEM Refer to clinic/hospital department [facility] CLIA# [id number] [address] [place] [address] * (ABNORMAL) BASIC METABOLIC PANEL (05/23/2008 5:00 AM CDT) GLUCOSE 107(H) 65 - 99 mg/dL [facility] SODIUM 136 135 - 145 mmol/L [facility] CALCIUM 8.7 8.6 - 10.2 mg/dL [facility] CO2 27 22 - 30 mmol/L [facility] CREATININE 0.73 0.51 - 0.95 mg/dL [facility] POTASSIUM 3.6 3.5 - 4.9 mmol/L [facility] BUN 26(H) 6 - 20 mg/dL [facility] CHLORIDE 102 96 - 108 mmol/L [facility] GFR, >60 >=60 mL/min/1. 7 sq meter [facility] GFR >60 >=60 mL/min/1. 7 sq meter [facility] Comment: Modification of Diet in Renal Disease (MDRD) study formula. Estimated GFR rate interpretative information for both Americans and non- Americans is available on the [facility] Intranet at: [email or web address] [email or web address] Select: Lab Policies and Procedures Select: Reference Ranges - GFR Blood specimen (specimen) 05/23/2008 5:00 AM CDT 05/23/2008 6:10 AM CDT Radha CONTI CHEMISTRY ORDERABLES Edited Performing Organization Address [facility] de Phone Number INTERFACE SYSTEM Refer to clinic/hospital department [facility] CLIA# [id number] [address] [place] [address] * (ABNORMAL) POC GLUCOSE (05/23/2008 12:46 AM CDT) GLUCOSE POC 141(H) 65 - 99 mg/dL [facility] COMMENT, GLU POC Notified GISELL [facility] Venous blood specimen (specimen) 05/23/2008 12:46 AM CDT 05/23/2008 12:46 AM CDT Brijesh Bird MD POINT OF CARE TESTING Fin al Result Performing Organization Address [facility] de Phone Number INTERFACE SYSTEM Refer to clinic/hospital department [facility] CLIA# [id number] [address] [place] [address] * (ABNORMAL) POC GLUCOSE (05/22/2008 9:09 PM CDT) GLUCOSE POC 178(H) 65 - 99 mg/dL [facility] COMMENT, GLU POC Notified GISELL [facility] Venous blood specimen (specimen) 05/22/2008 9:09 PM CDT 05/22/2008 9:09 PM CDT Brijesh Bird MD POINT OF CARE TESTING Fin al Result Performing Organization Address [facility] de Phone Number INTERFACE SYSTEM Refer to clinic/hospital department [facility] CLIA# [id number] [address] [place] [address] * (ABNORMAL) POC GLUCOSE (05/22/2008 5:10 PM CDT) GLUCOSE POC 129(H) 65 - 99 mg/dL [facility] Venous blood specimen (specimen) 05/22/2008 5:10 PM CDT 05/22/2008 5:10 PM CDT Brijesh Bird MD POINT OF CARE TESTING Fin al Result Performing Organization Address [facility] de Phone Number INTERFACE SYSTEM Refer to clinic/hospital department [facility] CLIA# [id number] [address] [place] [address] * (ABNORMAL) POC GLUCOSE (05/22/2008 1:54 PM CDT) GLUCOSE POC 120(H) 65 - 99 mg/dL [facility] Venous blood specimen (specimen) 05/22/2008 1:54 PM CDT 05/22/2008 1:54 PM CDT Brijesh Bird MD POINT OF CARE TESTING Fin al Result Performing Organization Address [facility] de Phone Number INTERFACE SYSTEM Refer to clinic/hospital department [facility] CLIA# [id number] [address] [place] [address] * (ABNORMAL) POC GLUCOSE (05/22/2008 11:20 AM CDT) GLUCOSE POC 120(H) 65 - 99 mg/dL [facility] Venous blood specimen (specimen) 05/22/2008 11:20 AM CDT 05/22/2008 11:20 AM CDT us Brijesh Bird MD POINT OF CARE TESTING Fin al Result Performing Organization Address [facility] de Phone Number INTERFACE SYSTEM Refer to clinic/hospital department [facility] CLIA# [id number] [address] [place] [address] * (ABNORMAL) POC GLUCOSE (05/22/2008 8:41 AM CDT) GLUCOSE POC 112(H) 65 - 99 mg/dL [facility] Venous blood specimen (specimen) 05/22/2008 8:41 AM CDT 05/22/2008 8:41 AM CDT us Brijesh Bird MD POINT OF CARE TESTING Fin al Result Performing Organization Address [facility] de Phone Number INTERFACE SYSTEM Refer to clinic/hospital department [facility] CLIA# [id number] [address] [place] [address] * XR CHEST PA OR AP (05/22/2008 8:40 AM CDT) Anatomical Region Laterality Modality Chest Other 05/22/2008 8:40 AM CDT Narrative 05/22/2008 9:36 AM CDT [facility] [address] [place], [place] [address] Admit Date: 05/19/2008 ABEBE [place] Sex: F Admit Prov: BRIJESH BIRD Date: 1945 Primary Care Prov: CMRN: [id number] Room: [address] [place] [address] SSN: [id number] IMAGING SERVICES Ordering Prov: N/A Accession Number: [id number] Interpretation PORTABLE SEMIERECT CHEST OF 0850 HOURS, 05/22/2008 History: Respiratory distress. Findings: All the tubes and catheters have been removed. There is no pneumothorax. The heart size is mildly enlarged. Opinion: Well-aerated lungs after tube removal. . Dictated by: KANDACE MTZ 05/22/2008 09:09 Electronically signed by: KANDACE MTZ 05/22/2008 09:35 Transcribed: 05/22/2008 09:13 SMM Procedure Note Kandace Mtz MD - 05/22/2008 [facility] [address] [facility] [place], [place] [address] Admit Date: 05/19/2008 ABEBE CUNN[place]AM [place] Sex: F Admit Prov: BRIJESH BIRD Date: 1945 Primary Care Prov: CMRN: [id number] Room: [address] [place] [address] SSN: [id number] IMAGING SERVICES Ordering Prov: N/A Interpretation PORTABLE [...] GLUCOSE POC 118(H) 65 - 99 mg/dL [facility] Venous blood specimen (specimen) 05/22/2008 6:16 AM CDT 05/22/2008 6:16 AM CDT us Brijesh Bird MD POINT OF CARE TESTING Fin al Result INTERFACE SYSTEM Refer to clinic/hospital department [facility] CLIA# [id number] [address] [place] [address] * (ABNORMAL) BASIC METABOLIC PANEL (05/22/2008 4:40 AM CDT) CHLORIDE 109(H) 96 - 108 mmol/L [facility] GLUCOSE 103(H) 65 - 99 mg/dL [facility] SODIUM 141 135 - 145 mmol/L [facility] CALCIUM 8.6 8.6 - 10.2 mg/dL [facility] CO2 26 22 - 30 mmol/L [facility] CREATININE 0.62 0.51 - 0.95 mg/dL [facility] POTASSIUM 4.1 3.5 - 4.9 mmol/L [facility] BUN 27(H) 6 - 20 mg/dL [facility] GFR, >60 >=60 mL/min/1. 7 sq meter [facility] GFR >60 >=60 mL/min/1. 7 sq meter [facility] Comment: Modification of Diet in Renal Disease (MDRD) study formula. Estimated GFR rate interpretative information for both Americans and non- Americans is available on the [facility] Intranet at: [email or web address]irm[facility] for childrenQudinibon [facility]/Relevant e-[email or web address] Select: Lab Policies and Procedures Select: Reference Ranges - GFR Blood specimen (specimen) 05/22/2008 4:40 AM CDT 05/22/2008 4:49 AM CDT us Ary Fragoso NP CHEMISTRY ORDERABLES Edited INTERFACE SYSTEM Refer to clinic/hospital department [facility] CLIA# [id number] [address] [place] [address] * (ABNORMAL) CBC WITH DIFFERENTIAL (05/22/2008 4:40 AM CDT) MCV 92.4 82.0 - 99.0 fL [facility] HEMOGLOBIN 10.8(L) 11.8 - 14.8 g/dL [facility] RDW 14.6(H) 11.5 - 14.5 % [facility] WBC 11.2(H) 4.0 - 9.8 K/uL [facility] MCH 30.6 27.2 - 32.6 pg [facility] HEMATOCRIT 32.6(L) 35.5 - 44.0 % [facility] RDW-STDEV 49.3(H) 37.1 - 48.7 fL [facility] RBC 3.53(L) 3.90 - 4.90 M/uL [facility] MCHC 33.1 31.5 - 35.5 % [facility] EOSINOPHILS 0 0 - 7 % [facility] EOSINOPHIL ABSOLUTE 0.01 0.00 - 0.70 K/uL [facility] LYMPHOCYTES 14(L) 16 - 45 % [facility] LYMPHOCYTE ABSOLUTE 1.57 0.70 - 4.50 K/uL [facility] BASOPHILS 0 0 - 2 % [facility] BASOPHILS ABSOLUTE 0.02 0.00 - 0.20 K/uL [facility] MONOCYTES 12 3 - 13 % [facility] MONOCYTE ABSOLUTE 1.33(H) 0.10 - 1.30 K/uL [facility] NEUTROPHILS 74(H) 45 - 70 % [facility] NEUTROPHIL ABSOLUTE 8.27(H) 1.90 - 7.00 K/uL [facility] PLATELETS 95(L) 140 - 350 K/uL [facility] Comment: Platelets verified by smear review. MPV 12.9(H) 9.3 - 12.4 fL [facility] Blood specimen (specimen) 05/22/2008 4:40 AM CDT 05/22/2008 4:49 AM CDT us Ary Fragoso GEAR ROOM KEEPER HEMATOLOGY ORDERABLES Edited Performing Organization Address [facility] de Phone Number INTERFACE SYSTEM Refer to clinic/hospital department [facility] CLIA# [id number] [address] [place] [address] * (ABNORMAL) POC GLUCOSE (05/22/2008 4:10 AM CDT) GLUCOSE POC 116(H) 65 - 99 mg/dL [facility] Venous blood specimen (specimen) 05/22/2008 4:10 AM CDT 05/22/2008 4:10 AM CDT us Brijesh Bird MD POINT OF CARE TESTING Fin al Result Performing Organization Address [facility] de Phone Number INTERFACE SYSTEM Refer to clinic/hospital department [facility] CLIA# [id number] [address] [place] [address] * (ABNORMAL) POC GLUCOSE (05/22/2008 3:18 AM CDT) GLUCOSE POC 115(H) 65 - 99 mg/dL [facility] Venous blood specimen (specimen) 05/22/2008 3:18 AM CDT 05/22/2008 3:18 AM CDT us Brijesh Bird MD POINT OF CARE TESTING Fin al Result Performing Organization Address [facility] de Phone Number INTERFACE SYSTEM Refer to clinic/hospital department [facility] CLIA# [id number] [address] [place] [address] * (ABNORMAL) POC GLUCOSE (05/22/2008 2:04 AM CDT) GLUCOSE POC 136(H) 65 - 99 mg/dL [facility] Venous blood specimen (specimen) 05/22/2008 2:04 AM CDT 05/22/2008 2:04 AM CDT Brijesh Bird MD POINT OF CARE TESTING Fin al Result Performing Organization Address City/[facility] de Phone Number INTERFACE SYSTEM Refer to clinic/hospital department [facility] CLIA# [id number] [address] [place] [address] * (ABNORMAL) POC GLUCOSE (05/22/2008 1:01 AM CDT) GLUCOSE POC 109(H) 65 - 99 mg/dL [facility] Venous blood specimen (specimen) 05/22/2008 1:01 AM CDT 05/22/2008 1:01 AM CDT us Brijesh Bird MD POINT OF CARE TESTING Fin al Result Performing Organization Address [facility] de Phone Number INTERFACE SYSTEM Refer to clinic/hospital department [facility] CLIA# [id number] [address] [place] [address] * POC GLUCOSE (05/22/2008 12:02 AM CDT) GLUCOSE POC 85 65 - 99 mg/dL [facility] Venous blood specimen (specimen) 05/22/2008 12:02 AM CDT 05/22/2008 12:02 AM CDT Brijesh Bird MD POINT OF CARE TESTING Fin al Result Performing Organization Address City/[facility] de Phone Number INTERFACE SYSTEM Refer to clinic/hospital department [facility] CLIA# [id number] [address] [place] [address] * (ABNORMAL) POC GLUCOSE (05/21/2008 11:07 PM CDT) GLUCOSE POC 105(H) 65 - 99 mg/dL [facility] Venous blood specimen (specimen) 05/21/2008 11:07 PM CDT 05/21/2008 11:07 PM CDT Brijesh Bird MD POINT OF CARE TESTING Fin al Result Performing Organization Address City/[facility] de Phone Number INTERFACE SYSTEM Refer to clinic/hospital department [facility] CLIA# [id number] [address] [place] [address] * POC GLUCOSE (05/21/2008 10:02 PM CDT) GLUCOSE POC 99 65 - 99 mg/dL [facility] Venous blood specimen (specimen) 05/21/2008 10:02 PM CDT 05/21/2008 10:02 PM CDT Brijesh Bird MD POINT OF CARE TESTING Fin al Result Performing Organization Address [facility] de Phone Number INTERFACE SYSTEM Refer to clinic/hospital department [facility] CLIA# [id number] [address] [place] [address] * POC GLUCOSE (05/21/2008 9:14 PM CDT) GLUCOSE POC 93 65 - 99 mg/dL [facility] Venous blood specimen (specimen) 05/21/2008 9:14 PM CDT 05/21/2008 9:14 PM CDT Brijesh Bird MD POINT OF CARE TESTING Fin al Result Performing Organization Address City/[facility] de Phone Number INTERFACE SYSTEM Refer to clinic/hospital department [facility] CLIA# [id number] [address] [place] [address] * (ABNORMAL) POC GLUCOSE (05/21/2008 8:19 PM CDT) GLUCOSE POC 112(H) 65 - 99 mg/dL [facility] Venous blood specimen (specimen) 05/21/2008 8:19 PM CDT 05/21/2008 8:19 PM CDT Brijesh Bird MD POINT OF CARE TESTING Fin al Result Performing Organization Address [facility] de Phone Number INTERFACE SYSTEM Refer to clinic/hospital department [facility] CLIA# [id number] [address] [place] [address] * (ABNORMAL) POC GLUCOSE (05/21/2008 4:28 PM CDT) GLUCOSE POC 104(H) 65 - 99 mg/dL [facility] Venous blood specimen (specimen) 05/21/2008 4:28 PM CDT 05/21/2008 4:28 PM CDT Brijesh Bird MD POINT OF CARE TESTING Fin al Result Performing Organization Address [facility] de Phone Number INTERFACE SYSTEM Refer to clinic/hospital department [facility] CLIA# [id number] [address] [place] [address] * (ABNORMAL) POC GLUCOSE (05/21/2008 3:04 PM CDT) GLUCOSE POC 109(H) 65 - 99 mg/dL [facility] Venous blood specimen (specimen) 05/21/2008 3:04 PM CDT 05/21/2008 3:04 PM CDT Brijesh Brid MD POINT OF CARE TESTING Fin al Result Performing Organization Address City/[facility] de Phone Number INTERFACE SYSTEM Refer to clinic/hospital department [facility] CLIA# [id number] [address] [place] [address] * (ABNORMAL) POC GLUCOSE (05/21/2008 1:48 PM CDT) GLUCOSE POC 124(H) 65 - 99 mg/dL [facility] Venous blood specimen (specimen) 05/21/2008 1:48 PM CDT 05/21/2008 1:48 PM CDT Brijesh Bird MD POINT OF CARE TESTING Fin al Result Performing Organization Address [facility] de Phone Number INTERFACE SYSTEM Refer to clinic/hospital department [facility] CLIA# [id number] [address] [place] [address] * (ABNORMAL) BLOOD GAS ARTERIAL (05/21/2008 1:45 PM CDT) O2 CONC ARTERIAL 35% [facility] PCO2 ARTERIAL 42 35 - 48 mm Hg [facility] FO2HB ABG 95 94 - 98 % [facility] BASE EXCESS ABG -0.8 -2.0 - 3.0 mmol/L [facility] PO2 ARTERIAL 79(L) 83 - 108 mm Hg [facility] PH ARTERIAL 7.37 7.35 - 7.45 [facility] SO2 ABG 96 95 - 99 % [facility] HCO3 ARTERIAL 24 22 - 26 mmol/L [facility] Arterial blood specimen (specimen) 05/21/2008 1:45 PM CDT 05/21/2008 1:52 PM CDT us Ary Fragoso GEAR ROOM KEEPER ABG ORDERABLES Final Result Performing Organization Address [facility] de Phone Number INTERFACE SYSTEM Refer to clinic/hospital department [facility] CLIA# [id number] [address] [place] [address] * (ABNORMAL) POC GLUCOSE (05/21/2008 1:10 PM CDT) GLUCOSE POC 123(H) 65 - 99 mg/dL [facility] Venous blood specimen (specimen) 05/21/2008 1:10 PM CDT 05/21/2008 1:10 PM CDT Brijesh Bird MD POINT OF CARE TESTING Fin al Result Performing Organization Address [facility] de Phone Number INTERFACE SYSTEM Refer to clinic/hospital department [facility] CLIA# [id number] [address] [place] [address] * (ABNORMAL) CVR ONLY, CKMB/CK (05/21/2008 12:30 PM CDT) [facility] Signature CKMB 80.9(AA) <=3.8 ng/mL [facility] Comment: Persistent abnormal result CKMB INTERP See Below [facility] Comment: Elevated CKMB,consistent with Myocardial Injury CK 1,451(H) 10 - 145 U/L [facility] CARDIAC RELATIVE INDEX 5.6(H) <=4.0 [facility] Blood specimen (specimen) 05/21/2008 12:30 PM CDT 05/21/2008 12:32 PM CDT us Viktoriya Gavin MD CHEMISTRY ORDERABLES Edite d Performing Organization Address [facility] de Phone Number INTERFACE SYSTEM Refer to clinic/hospital department [facility] CLIA# [id number] [address] [place] [address] * (ABNORMAL) POC GLUCOSE (05/21/2008 12:28 PM CDT) GLUCOSE POC 106(H) 65 - 99 mg/dL [facility] Venous blood specimen (specimen) 05/21/2008 12:28 PM CDT 05/21/2008 12:28 PM CDT Brijesh Bird MD POINT OF CARE TESTING Fin al Result Performing Organization Address [facility] de Phone Number INTERFACE SYSTEM Refer to clinic/hospital department [facility] CLIA# [id number] [address] [place] [address] * (ABNORMAL) POC GLUCOSE (05/21/2008 11:16 AM CDT) [facility] GLUCOSE POC 137(H) 65 - 99 mg/dL [facility] Venous blood specimen (specimen) 05/21/2008 11:16 AM CDT 05/21/2008 11:16 AM CDT Brijesh Bird MD POINT OF CARE TESTING Fin al Result Performing Organization Address [facility] de Phone Number INTERFACE SYSTEM Refer to clinic/hospital department [facility] CLIA# [id number] [address] [place] [address] * (ABNORMAL) POC RT, BLOOD GASES (05/21/2008 11:12 AM CDT) [facility] Signature PO2 ARTERIAL 57(L) 83 - 108 mm Hg [facility] SODIUM POC 137 135 - 145 mmol/L [facility] PH ARTERIAL 7.38 7.35 - 7.45 [facility] BASE EXCESS ABG -1.3 -2.0 - 3.0 mmol/L [facility] HEMATOCRIT POC 35.0(L) 35.5 - 44.0 % [facility] O2 SAT EST ABG POC 89(L) 95 - 99 % [facility] POTASSIUM POC 4.3 3.5 - 4.9 mmol/L [facility] PCO2 ARTERIAL 40 35 - 48 mm Hg [facility] HCO3 ARTERIAL 24 22 - 26 mmol/L [facility] COMMENT, GASES POC RN NOTIFIED [facility] PATIENT'S TEMPERATURE 37.0 Degree C [facility] CALICUM IONIZED, WHOLE BLOOD 4.77 4.76 - 5.16 mg/dL [facility] Blood specimen (specimen) 05/21/2008 11:12 AM CDT 05/21/2008 11:12 AM CDT Brijesh Bird MD CHEMISTRY ORDERABLES Rosenda l Result Performing Organization Address [facility] Phone Number INTERFACE SYSTEM Refer to clinic/hospital department [facility] CLIA# [id number] [address] [place] [address] * (ABNORMAL) POC GLUCOSE (05/21/2008 10:18 AM CDT) GLUCOSE POC 148(H) 65 - 99 mg/dL [facility] Venous blood specimen (specimen) 05/21/2008 10:18 AM CDT 05/21/2008 10:18 AM CDT Brijesh Bird MD POINT OF CARE TESTING Fin al Result Performing Organization Address [facility] de Phone Number INTERFACE SYSTEM Refer to clinic/hospital department [facility] CLIA# [id number] [address] [place] [address] * (ABNORMAL) POC GLUCOSE (05/21/2008 9:09 AM CDT) GLUCOSE POC 143(H) 65 - 99 mg/dL [facility] Venous blood specimen (specimen) 05/21/2008 9:09 AM CDT 05/21/2008 9:09 AM CDT Brijesh Bird MD POINT OF CARE TESTING Fin al Result Performing Organization Address City/[facility] de Phone Number INTERFACE SYSTEM Refer to clinic/hospital department [facility] CLIA# [id number] [address] [place] [address] * (ABNORMAL) POC GLUCOSE (05/21/2008 8:24 AM CDT) [facility] GLUCOSE POC 145(H) 65 - 99 mg/dL [facility] Venous blood specimen (specimen) 05/21/2008 8:24 AM CDT 05/21/2008 8:24 AM CDT us Brijesh Bird MD POINT OF CARE TESTING Fin al Result Performing Organization Address [facility] de Phone Number INTERFACE SYSTEM Refer to clinic/hospital department [facility] CLIA# [id number] [address] [place] [address] * (ABNORMAL) BLOOD GAS ARTERIAL (05/21/2008 8:00 AM CDT) [facility] O2 CONC ARTERIAL 55% [facility] BASE EXCESS ABG -2.5(L) -2.0 - 3.0 mmol/L [facility] PO2 ARTERIAL 69(L) 83 - 108 mm Hg [facility] PH ARTERIAL 7.33(L) 7.35 - 7.45 [facility] O2 SAT EST ARTERIAL 92(L) 94 - 98 % [facility] HCO3 ARTERIAL 23 22 - 26 mmol/L [facility] PCO2 ARTERIAL 46 35 - 48 mm Hg [facility] Arterial blood specimen (specimen) 05/21/2008 8:00 AM CDT 05/21/2008 8:13 AM CDT us Viktoriya Gavin MD ABG ORDERABLES Final Resu lt Performing Organization Address [facility] de Phone Number INTERFACE SYSTEM Refer to clinic/hospital department [facility] CLIA# [id number] [address] [place] [address] * (ABNORMAL) POC RT, BLOOD GASES (05/21/2008 6:30 AM CDT) PCO2 ARTERIAL 44 35 - 48 mm Hg [facility] FIO2 55 [facility] HCO3 ARTERIAL 21(L) 22 - 26 mmol/L [facility] PATIENT'S TEMPERATURE 37.0 Degree C [facility] CALICUM IONIZED, WHOLE BLOOD 4.77 4.76 - 5.16 mg/dL [facility] PEEP POC 5 [facility] PO2 ARTERIAL 63(L) 83 - 108 mm Hg [facility] SODIUM POC 133(L) 135 - 145 mmol/L [facility] OXYGEN MODE SIMV/PS [facility] PH ARTERIAL 7.29(L) 7.35 - 7.45 [facility] BASE EXCESS ABG -5.2(L) -2.0 - 3.0 mmol/L [facility] COMMENT, GASES POC RN/MD NOTIFIED [facility] HEMATOCRIT POC 37.0 35.5 - 44.0 % [facility] O2 SAT EST ABG POC 89(L) 95 - 99 % [facility] POTASSIUM POC 4.6 3.5 - 4.9 mmol/L [facility] Blood specimen (specimen) 05/21/2008 6:30 AM CDT 05/21/2008 6:30 AM CDT Brijesh Bird MD CHEMISTRY ORDERABLES Rosenda chavez Result INTERFACE SYSTEM Refer to clinic/hospital department [facility] CLIA# [id number] [address] [place] [address] * (ABNORMAL) POC GLUCOSE (05/21/2008 6:08 AM CDT) GLUCOSE POC 133(H) 65 - 99 mg/dL [facility] Venous blood specimen (specimen) 05/21/2008 6:08 AM CDT 05/21/2008 6:08 AM CDT us Brijesh Bird MD POINT OF CARE TESTING Fin al Result INTERFACE SYSTEM Refer to clinic/hospital department [facility] CLIA# [id number] [address] [place], [place] [address] * (ABNORMAL) POC RT, BLOOD GASES (05/21/2008 5:42 AM CDT) FIO2 55 [facility] HCO3 ARTERIAL 21(L) 22 - 26 mmol/L [facility] PATIENT'S TEMPERATURE 37.0 Degree C [facility] CALICUM IONIZED, WHOLE BLOOD 4.73(L) 4.76 - 5.16 mg/dL [facility] PH ARTERIAL 7.26(L) 7.35 - 7.45 [facility] SODIUM POC 134(L) 135 - 145 mmol/L [facility] COMMENT, GASES POC RN/MD NOTIFIED [facility] PCO2 ARTERIAL 47 35 - 48 mm Hg [facility] BASE EXCESS ABG -6.0(L) -2.0 - 3.0 mmol/L [facility] HEMATOCRIT POC 38.0 35.5 - 44.0 % [facility] PO2 ARTERIAL 64(L) 83 - 108 mm Hg [facility] O2 SAT EST ABG POC 88(L) 95 - 99 % [facility] POTASSIUM POC 4.8 3.5 - 4.9 mmol/L [facility] Blood specimen (specimen) 05/21/2008 5:42 AM CDT 05/21/2008 5:42 AM CDT us Brijesh Bird MD CHEMISTRY ORDERABLES Rosenda chavez Result INTERFACE SYSTEM Refer to clinic/hospital department [facility] CLIA# [id number] [address] [place] [address] * XR CHEST PA OR AP (05/21/2008 5:20 AM CDT) Anatomical Region Laterality Modality Chest Other 05/21/2008 5:20 AM CDT Narrative 05/21/2008 9:31 AM CDT [facility] [address] [place], [place] [address] Admit Date: 05/19/2008 [place] Sex: F Admit Prov: BRIJESH BIRD Date: 1945 Primary Care Prov: CMRN: [id number] Room: [address] [place] [address] SSN: [id number] IMAGING SERVICES Ordering Prov: N/A Accession Number: [id number] Interpretation CHEST SINGLE VIEW 05/21/08 AT 0530 [...] Procedure Note Jocelyn Rasmussen MD - 05/21/2008 [facility] [address] [place], [place] [address] Admit Date: 05/19/2008 [place] Sex: F Admit Prov: BRIJESH BIRD Date: 1945 Primary Care Prov: CMRN: [id number] Room: [address] [place] [address] SSN: [id number] IMAGING SERVICES Ordering Prov: N/A Interpretation CHEST [...] GLUCOSE POC 139(H) 65 - 99 mg/dL [facility] Venous blood specimen (specimen) 05/21/2008 4:11 AM CDT 05/21/2008 4:11 AM CDT us Brijesh Bird MD POINT OF CARE TESTING Fin al Result Performing Organization Address [facility]/ZIP Co de Phone Number INTERFACE SYSTEM Refer to clinic/hospital department [facility] CLIA# [id number] [address] [place], [place] [address] * (ABNORMAL) PT AND APTT (05/21/2008 4:00 AM CDT) INR 1.2(H) 0.9 - 1.1 [facility] Comment: INR Therapeutic Range: Adult: 2.0 [...] prosthetic cardiac valves and hereditary clotting disorders. [place] (<3 days) therapeutic ranges have not been established. PROTIME 14.9 12.7 - 15.1 Seconds [facility] PTT 27.0 24.4 - 36.4 Seconds [facility] Comment: PTT Therapeutic Range: Heparin Level [...] ed INTERFACE SYSTEM Refer to clinic/hospital department [facility] CLIA# [id number] [address] [place] [address] * (ABNORMAL) COMPREHENSIVE METABOLIC PANEL (05/21/2008 4:00 AM CDT) CREATININE 0.82 0.51 - 0.95 mg/dL [facility] ALT 38(H) 0 - 31 U/L [facility] SODIUM 140 135 - 145 mmol/L [facility] ALKALINE PHOSPHATASE 57 35 - 104 U/L [facility] CO2 22 22 - 30 mmol/L [facility] BILIRUBIN TOTAL 0.2 0.2 - 1.0 mg/dL [facility] POTASSIUM 4.7 3.5 - 4.9 mmol/L [facility] TOTAL PROTEIN 5.3(L) 6.3 - 8.6 g/dL [facility] GLUCOSE 138(H) 65 - 99 mg/dL [facility] AST 155(H) 12 - 32 U/L [facility] BUN 21(H) 6 - 20 mg/dL [facility] CALCIUM 8.0(L) 8.6 - 10.2 mg/dL [facility] ALBUMIN 3.3(L) 3.4 - 4.8 g/dL [facility] CHLORIDE 111(H) 96 - 108 mmol/L [facility] GFR, >60 >=60 mL/min/1. 7 sq meter [facility] GFR >60 >=60 mL/min/1. 7 sq meter [facility] Comment: Modification of Diet in Renal Disease (MDRD) study formula. Estimated GFR rate interpretative information for both Americans and non- Americans is available on the [facility] Intranet at: [email or web address] Select: Lab Policies and Procedures Select: Reference Ranges - GFR Blood specimen (specimen) 05/21/2008 4:00 AM CDT 05/21/2008 4:21 AM CDT Viktoriya Gavin MD CHEMISTRY ORDERABLES Edite d Performing Organization Address [facility] Phone Number INTERFACE SYSTEM Refer to clinic/hospital department [facility] CLIA# [id number] [address] [place] [address] * (ABNORMAL) CVR ONLY, CKMB/CK (05/21/2008 4:00 AM CDT) Pathologist [facility] CKMB 137.4(AA) <=3.8 ng/mL [facility] Comment: Persistent abnormal result CKMB INTERP See Below [facility] Comment: Elevated CKMB,consistent with Myocardial Injury CK 1,974(H) 10 - 145 U/L [facility] CARDIAC RELATIVE INDEX 7.0(H) <=4.0 [facility] Blood specimen (specimen) 05/21/2008 4:00 AM CDT 05/21/2008 4:21 AM CDT Viktoriya Gavin MD CHEMISTRY ORDERABLES Edite d Performing Organization Address [facility] de Phone Number INTERFACE SYSTEM Refer to clinic/hospital department [facility] CLIA# [id number] [address] [place] [address] * (ABNORMAL) CBC WITH DIFFERENTIAL (05/21/2008 4:00 AM CDT) Pathologist [facility] HEMATOCRIT 38.4 35.5 - 44.0 % [facility] RDW-STDEV 49.7(H) 37.1 - 48.7 fL [facility] RBC 4.16 3.90 - 4.90 M/uL [facility] MCHC 33.3 31.5 - 35.5 % [facility] MCV 92.3 82.0 - 99.0 fL [facility] PLATELETS 129(L) 140 - 350 K/uL [facility] HEMOGLOBIN 12.8 11.8 - 14.8 g/dL [facility] RDW 14.7(H) 11.5 - 14.5 % [facility] WBC 14.4(H) 4.0 - 9.8 K/uL [facility] MCH 30.8 27.2 - 32.6 pg [facility] MPV 13.0(H) 9.3 - 12.4 fL [facility] MONOCYTES 9 3 - 13 % [facility] MONOCYTE ABSOLUTE 1.34(H) 0.10 - 1.30 K/uL [facility] NEUTROPHILS 86(H) 45 - 70 % [facility] NEUTROPHIL ABSOLUTE 12.44(H) 1.90 - 7.00 K/uL [facility] EOSINOPHILS 0 0 - 7 % [facility] EOSINOPHIL ABSOLUTE 0.00 0.00 - 0.70 K/uL [facility] LYMPHOCYTES 4(L) 16 - 45 % [facility] LYMPHOCYTE ABSOLUTE 0.62(L) 0.70 - 4.50 K/uL [facility] BASOPHILS 0 0 - 2 % [facility] BASOPHILS ABSOLUTE 0.01 0.00 - 0.20 K/uL [facility] Blood specimen (specimen) 05/21/2008 4:00 AM CDT 05/21/2008 4:21 AM CDT us Viktoriya Gavin MD HEMATOLOGY ORDERABLES Edit ed INTERFACE SYSTEM Refer to clinic/hospital department [facility] CLIA# [id number] [address] [place] [address] * (ABNORMAL) POC GLUCOSE (05/21/2008 2:50 AM CDT) GLUCOSE POC 155(H) 65 - 99 mg/dL [facility] Venous blood specimen (specimen) 05/21/2008 2:50 AM CDT 05/21/2008 2:50 AM CDT Brijesh Bird MD POINT OF CARE TESTING Fin al Result Performing Organization Address [facility] de Phone Number INTERFACE SYSTEM Refer to clinic/hospital department [facility] CLIA# [id number] [address] [place] [address] * (ABNORMAL) POC GLUCOSE (05/21/2008 1:10 AM CDT) GLUCOSE POC 159(H) 65 - 99 mg/dL [facility] Venous blood specimen (specimen) 05/21/2008 1:10 AM CDT 05/21/2008 1:10 AM CDT Brijesh Bird MD POINT OF CARE TESTING Fin al Result Performing Organization Address City/[facility] de Phone Number INTERFACE SYSTEM Refer to clinic/hospital department [facility] CLIA# [id number] [address] [place] [address] * (ABNORMAL) POC GLUCOSE (05/20/2008 11:57 PM CDT) GLUCOSE POC 158(H) 65 - 99 mg/dL [facility] Venous blood specimen (specimen) 05/20/2008 11:57 PM CDT 05/20/2008 11:57 PM CDT us Brijesh Bird MD POINT OF CARE TESTING Fin al Result Performing Organization Address [facility] de Phone Number INTERFACE SYSTEM Refer to clinic/hospital department [facility] CLIA# [id number] [address] [place] [place] [address] * (ABNORMAL) POC GLUCOSE (05/20/2008 10:21 PM CDT) GLUCOSE POC 156(H) 65 - 99 mg/dL [facility] Venous blood specimen (specimen) 05/20/2008 10:21 PM CDT 05/20/2008 10:21 PM CDT us Brijesh Bird MD POINT OF CARE TESTING Fin al Result Performing Organization Address [facility] de Phone Number INTERFACE SYSTEM Refer to clinic/hospital department [facility] CLIA# [id number] [address] [place] [address] * (ABNORMAL) POC GLUCOSE (05/20/2008 9:24 PM CDT) GLUCOSE POC 145(H) 65 - 99 mg/dL [facility] Venous blood specimen (specimen) 05/20/2008 9:24 PM CDT 05/20/2008 9:24 PM CDT Brijesh Bird MD POINT OF CARE TESTING Fin al Result Performing Organization Address [facility] de Phone Number INTERFACE SYSTEM Refer to clinic/hospital department [facility] CLIA# [id number] [address] [place] [address] * (ABNORMAL) POC GLUCOSE (05/20/2008 8:11 PM CDT) GLUCOSE POC 148(H) 65 - 99 mg/dL [facility] Venous blood specimen (specimen) 05/20/2008 8:11 PM CDT 05/20/2008 8:11 PM CDT us Brijesh Bird MD POINT OF CARE TESTING Fin al Result Performing Organization Address [facility] de Phone Number INTERFACE SYSTEM Refer to clinic/hospital department [facility] CLIA# [id number] [address] [place] [address] * (ABNORMAL) CVR ONLY, CKMB/CK (05/20/2008 7:25 PM CDT) CKMB 166.9(AA) <=3.8 ng/mL [facility] Comment: Persistent abnormal result CKMB INTERP See Below [facility] Comment: Elevated CKMB,consistent with Myocardial Injury CK 2,169(H) 10 - 145 U/L [facility] CARDIAC RELATIVE INDEX 7.7(H) <=4.0 [facility] Blood specimen (specimen) 05/20/2008 7:25 PM CDT 05/20/2008 7:31 PM CDT us Viktoriya Gavin MD CHEMISTRY ORDERABLES Edite d Performing Organization Address [facility] Phone Number INTERFACE SYSTEM Refer to clinic/hospital department [facility] CLIA# [id number] [address] [place] [address] * (ABNORMAL) POC GLUCOSE (05/20/2008 7:14 PM CDT) GLUCOSE POC 154(H) 65 - 99 mg/dL [facility] Venous blood specimen (specimen) 05/20/2008 7:14 PM CDT 05/20/2008 7:14 PM CDT us Brijesh Bird MD POINT OF CARE TESTING Fin al Result Performing Organization Address [facility] de Phone Number INTERFACE SYSTEM Refer to clinic/hospital department [facility] CLIA# [id number] [address] [place] [address] * MAGNESIUM LEVEL (05/20/2008 6:40 PM CDT) MAGNESIUM 2.4 1.5 - 2.5 mg/dL [facility] Blood specimen (specimen) 05/20/2008 6:40 PM CDT 05/20/2008 6:48 PM CDT Viktoriya Gavin MD CHEMISTRY ORDERABLES Final Result Performing Organization Address [facility] Phone Number INTERFACE SYSTEM Refer to clinic/hospital department [facility] CLIA# [id number] [address] [place] [address] * POTASSIUM LEVEL (05/20/2008 6:40 PM CDT) POTASSIUM 4.9 3.5 - 4.9 mmol/L [facility] Blood specimen (specimen) 05/20/2008 6:40 PM CDT 05/20/2008 6:48 PM CDT Viktoriya Gavin MD CHEMISTRY ORDERABLES Final Result Performing Organization Address [facility] Phone Number INTERFACE SYSTEM Refer to clinic/hospital department [facility] CLIA# [id number] [address] [place] [address] * (ABNORMAL) POC GLUCOSE (05/20/2008 6:06 PM CDT) GLUCOSE POC 146(H) 65 - 99 mg/dL [facility] Venous blood specimen (specimen) 05/20/2008 6:06 PM CDT 05/20/2008 6:06 PM CDT Brijesh Bird MD POINT OF CARE TESTING Fin al Result Performing Organization Address [facility] de Phone Number INTERFACE SYSTEM Refer to clinic/hospital department [facility] CLIA# [id number] [address] [place] [address] * (ABNORMAL) POC GLUCOSE (05/20/2008 4:46 PM CDT) GLUCOSE POC 143(H) 65 - 99 mg/dL [facility] Venous blood specimen (specimen) 05/20/2008 4:46 PM CDT 05/20/2008 4:46 PM CDT us Brijesh Bird MD POINT OF CARE TESTING Fin al Result Performing Organization Address [facility] Phone Number INTERFACE SYSTEM Refer to clinic/hospital department [facility] CLIA# [id number] [address] [place] [address] * POTASSIUM LEVEL (05/20/2008 4:25 PM CDT) POTASSIUM 4.5 3.5 - 4.9 mmol/L [facility] Blood specimen (specimen) 05/20/2008 4:25 PM CDT 05/20/2008 4:35 PM CDT us Viktoriya Gavin MD CHEMISTRY ORDERABLES Final Result Performing Organization Address [facility] Phone Number INTERFACE SYSTEM Refer to clinic/hospital department [facility] CLIA# [id number] [address] [place] [address] * (ABNORMAL) POC GLUCOSE (05/20/2008 3:51 PM CDT) GLUCOSE POC 146(H) 65 - 99 mg/dL [facility] Venous blood specimen (specimen) 05/20/2008 3:51 PM CDT 05/20/2008 3:51 PM CDT us Brijesh Bird MD POINT OF CARE TESTING Fin al Result Performing Organization Address [facility]/State/ZIP Co de Phone Number INTERFACE SYSTEM Refer to clinic/hospital department [facility] CLIA# [id number] [address] [place] [address] * (ABNORMAL) POC GLUCOSE (05/20/2008 3:16 PM CDT) [facility] Signature GLUCOSE POC 149(H) 65 - 99 mg/dL [facility] Venous blood specimen (specimen) 05/20/2008 3:16 PM CDT 05/20/2008 3:16 PM CDT us Brijesh Bird MD POINT OF CARE TESTING Fin al Result INTERFACE SYSTEM Refer to clinic/hospital department [facility] CLIA# [id number] [address] [place] [address] * (ABNORMAL) POC RT, BLOOD GASES (05/20/2008 12:58 PM CDT) [facility] BASE EXCESS VENOUS -7.6(L) -2.0 - 3.0 mmol/L [facility] HEMATOCRIT POC 26.0(L) 35.5 - 44.0 % [facility] PEEP POC 5 [facility] O2 SAT EST MVBG POC 61 40 - 70 % [facility] POTASSIUM POC 3.0(L) 3.5 - 4.9 mmol/L [facility] OXYGEN MODE SIMV [facility] PCO2 VENOUS 29(L) 38 - 50 mm Hg [facility] HCO3 MIXED VENOUS 17(L) 22 - 29 mmol/L [facility] COMMENT, GASES POC RN AWARE [facility] FIO2 50 [facility] PH MVBG 7.37 7.32 - 7.43 [facility] PATIENT'S TEMPERATURE 37.0 Degree C [facility] CALICUM IONIZED, WHOLE BLOOD 5.09 4.76 - 5.16 mg/dL [facility] PO2 MVBG 33 25 - 40 mm Hg [facility] TIDAL VOLUME POC 700 [facility] SODIUM POC 145 135 - 145 mmol/L [facility] Blood specimen (specimen) 05/20/2008 12:58 PM CDT 05/20/2008 12:58 PM CDT Brijesh Bird MD CHEMISTRY ORDERABLES Rosenda l Result Performing Organization Address [facility] Phone Number INTERFACE SYSTEM Refer to clinic/hospital department [facility] CLIA# [id number] [address] [place] [address] * (ABNORMAL) POC GLUCOSE (05/20/2008 12:39 PM CDT) GLUCOSE POC 121(H) 65 - 99 mg/dL [facility] Venous blood specimen (specimen) 05/20/2008 12:39 PM CDT 05/20/2008 12:39 PM CDT Brijesh Bird MD POINT OF CARE TESTING Fin al Result Performing Organization Address [facility] de Phone Number INTERFACE SYSTEM Refer to clinic/hospital department [facility] CLIA# [id number] [address] [place] [address] * (ABNORMAL) POC GLUCOSE (05/20/2008 11:22 AM CDT) GLUCOSE POC 120(H) 65 - 99 mg/dL [facility] Venous blood specimen (specimen) 05/20/2008 11:22 AM CDT 05/20/2008 11:22 AM CDT Brijesh Bird MD POINT OF CARE TESTING Fin al Result INTERFACE SYSTEM Refer to clinic/hospital department [facility] CLIA# [id number] [address] [place] [address] * (ABNORMAL) POC RT, BLOOD GASES (05/20/2008 11:21 AM CDT) FIO2 60 [facility] PATIENT'S TEMPERATURE 37.0 Degree C [facility] POTASSIUM POC 4.1 3.5 - 4.9 mmol/L [facility] CALICUM IONIZED, WHOLE BLOOD 4.85 4.76 - 5.16 mg/dL [facility] PEEP POC 5 [facility] PO2 ARTERIAL 109(H) 83 - 108 mm Hg [facility] COMMENT, GASES POC RN AWARE [facility] OXYGEN MODE SIMV/PS [facility] PH ARTERIAL 7.41 7.35 - 7.45 [facility] BASE EXCESS ABG -0.4 -2.0 - 3.0 mmol/L [facility] O2 SAT EST ABG POC 98 95 - 99 % [facility] HEMATOCRIT POC 31.0(L) 35.5 - 44.0 % [facility] SODIUM POC 134(L) 135 - 145 mmol/L [facility] PCO2 ARTERIAL 38 35 - 48 mm Hg [facility] HCO3 ARTERIAL 24 22 - 26 mmol/L [facility] Blood specimen (specimen) 05/20/2008 11:21 AM CDT 05/20/2008 11:21 AM CDT Brijesh Bird MD CHEMISTRY ORDERABLES Rosenda chavez Result INTERFACE SYSTEM Refer to clinic/hospital department [facility] CLIA# [id number] [address] [place] [address] * (ABNORMAL) PT AND APTT (05/20/2008 11:20 AM CDT) PROTIME 17.3(H) 12.7 - 15.1 Seconds [facility] INR 1.4(H) 0.9 - 1.1 [facility] Comment: INR Therapeutic Range: Adult: 2.0 [...] established. PTT 31.9 24.4 - 36.4 Seconds [facility] Comment: PTT Therapeutic Range: Heparin Level [...] ed INTERFACE SYSTEM Refer to clinic/hospital department [facility] CLIA# [id number] [address] [place] [address] * (ABNORMAL) MAGNESIUM LEVEL (05/20/2008 11:20 AM CDT) MAGNESIUM 2.7(H) 1.5 - 2.5 mg/dL [facility] Blood specimen (specimen) 05/20/2008 11:20 AM CDT 05/20/2008 11:25 AM CDT Viktoriya Gavin MD CHEMISTRY ORDERABLES Final Result Performing Organization Address [facility] Phone Number INTERFACE SYSTEM Refer to clinic/hospital department [facility] CLIA# [id number] [address] [place] [address] * (ABNORMAL) CVR ONLY, CKMB/CK (05/20/2008 11:20 AM CDT) CKMB 12.5(AA) <=3.8 ng/mL [facility] Comment: Results called to yenifer at 05/20/08 11:54 AM and read back verified. CKMB INTERP See Below [facility] Comment: Elevated CKMB,consistent with Myocardial Injury. CK 121 10 - 145 U/L [facility] CARDIAC RELATIVE INDEX N/A <=4.0 [facility] Blood specimen (specimen) 05/20/2008 11:20 AM CDT 05/20/2008 11:25 AM CDT Viktoriya Gavin MD CHEMISTRY ORDERABLES Edite d Performing Organization Address [facility] Phone Number INTERFACE SYSTEM Refer to clinic/hospital department [facility] CLIA# [id number] [address] [place] [address] * (ABNORMAL) BASIC METABOLIC PANEL (05/20/2008 11:20 AM CDT) CALCIUM 8.4(L) 8.6 - 10.2 mg/dL [facility] CO2 22 22 - 30 mmol/L [facility] CREATININE 0.80 0.51 - 0.95 mg/dL [facility] POTASSIUM 4.2 3.5 - 4.9 mmol/L [facility] BUN 14 6 - 20 mg/dL [facility] CHLORIDE 109(H) 96 - 108 mmol/L [facility] GLUCOSE 111(H) 65 - 99 mg/dL [facility] SODIUM 136 135 - 145 mmol/L [facility] GFR, >60 >=60 mL/min/1. 7 sq meter [facility] GFR >60 >=60 mL/min/1. 7 sq meter [facility] Comment: Modification of Diet in Renal Disease (MDRD) study formula. Estimated GFR rate interpretative information for both Americans and non- Americans is available on the [facility] Intranet at: [email or web address] Select: Lab Policies and Procedures Select: Reference Ranges - GFR Blood specimen (specimen) 05/20/2008 11:20 AM CDT 05/20/2008 11:25 AM CDT us Viktoriya Gavin MD CHEMISTRY ORDERABLES Edite d INTERFACE SYSTEM Refer to clinic/hospital department [facility] CLIA# [id number] [address] [place] [address] * (ABNORMAL) CBC WITH DIFFERENTIAL (05/20/2008 11:20 AM CDT) WBC 7.4 4.0 - 9.8 K/uL [facility] MCH 30.8 27.2 - 32.6 pg [facility] MPV 12.6(H) 9.3 - 12.4 fL [facility] HEMATOCRIT 33.0(L) 35.5 - 44.0 % [facility] RDW-STDEV 45.9 37.1 - 48.7 fL [facility] RBC 3.64(L) 3.90 - 4.90 M/uL [facility] MCHC 33.9 31.5 - 35.5 % [facility] MCV 90.7 82.0 - 99.0 fL [facility] PLATELETS 111(L) 140 - 350 K/uL [facility] HEMOGLOBIN 11.2(L) 11.8 - 14.8 g/dL [facility] RDW 13.7 11.5 - 14.5 % [facility] LYMPHOCYTES 19 16 - 45 % [facility] LYMPHOCYTE ABSOLUTE 1.37 0.70 - 4.50 K/uL [facility] BASOPHILS 0 0 - 2 % [facility] BASOPHILS ABSOLUTE 0.03 0.00 - 0.20 K/uL [facility] MONOCYTES 1(L) 3 - 13 % [facility] MONOCYTE ABSOLUTE 0.10 0.10 - 1.30 K/uL [facility] NEUTROPHILS 78(H) 45 - 70 % [facility] NEUTROPHIL ABSOLUTE 5.76 1.90 - 7.00 K/uL [facility] EOSINOPHILS 2 0 - 7 % [facility] EOSINOPHIL ABSOLUTE 0.11 0.00 - 0.70 K/uL [facility] Blood specimen (specimen) 05/20/2008 11:20 AM CDT 05/20/2008 11:25 AM CDT us Viktoriya Gavin MD HEMATOLOGY ORDERABLES Edit ed INTERFACE SYSTEM Refer to clinic/hospital department [facility] CLIA# [id number] [address] [place] [address] * XR CHEST PA OR AP (05/20/2008 11:00 AM CDT) Anatomical Region Laterality Modality Chest Other 05/20/2008 11:0 0 AM CDT Narrative 05/20/2008 11:45 AM CDT [address] [address] [place], [place] [address] Admit Date: 05/19/2008 ABEBE [place] Sex: F Admit Prov: BRIJESH BIRD Date: 1945 Primary Care Prov: CMRN: [id number] Room: [address] [place] [address] SSN: [id number] IMAGING SERVICES Ordering Prov: N/A Accession Number: [id number] Interpretation Portable AP supine chest of 1120 hours. History: Chest pain. Lines: Since the previous exam of May 19, the patient has undergone median sternotomy. The chest tubes are in expected position. The endotracheal tube tip is at the thoracic inlet. The [place]-Ambrosio catheter tip is overlying the main pulmonary artery. There is a mild hazy atelectatic change in the left lung. There is no pneumothorax. The heart size is mildly enlarged. Opinion: Mild cardiomegaly and mild left atelectasis . Dictated by: KANDACE MTZ 05/20/2008 11:42 Electronically signed by: KANDACE MTZ 05/20/2008 11:43 Procedure Note Kandace Mtz MD - 05/20/2008 [address] [place], [place] [address] Admit Date: 05/19/2008 ABEBE [place]UNN[place]HAM Sex: F Admit Prov: BRIJESH BIRD Date: 1945 Primary Care Prov: CMRN: [id number] Room: [address] [place] [address] SSN: [id number] IMAGING SERVICES Ordering Prov: N/A Interpretation Portable AP supine chest of 1120 hours. History: Chest pain. Lines: Since the previous exam of May 19, the patient hasundergone median sternotomy. The chest tubes are in expected position. The endotracheal tube tip is at the thoracic inlet. The [place]-Ganzcatheter tip is overlying the main pulmonary artery. [...] AM CDT) COMMENT, GASES POC POST BYPASS [facility] PATIENT'S TEMPERATURE 37.0 Degree C [facility] LACTIC ACID 2.3(H) 0.5 - 2.2 mmol/L [facility] CALICUM IONIZED, WHOLE BLOOD 4.97 4.76 - 5.16 mg/dL [facility] PO2 ARTERIAL 220(H) 83 - 108 mm Hg [facility] SODIUM POC 136 135 - 145 mmol/L [facility] PH ARTERIAL 7.35(L) 7.35 - 7.45 [facility] BASE EXCESS ABG -0.9 -2.0 - 3.0 mmol/L [facility] HEMATOCRIT POC 26.0(L) 35.5 - 44.0 % [facility] GLUCOSE POC 108(H) 65 - 99 mg/dL [facility] O2 SAT EST ABG POC 100(H) 95 - 99 % [facility] POTASSIUM POC 4.7 3.5 - 4.9 mmol/L [facility] TCO2, ABG POC 26(H) 19 - 24 mmol/L [facility] PCO2 ARTERIAL 45 35 - 48 mm Hg [facility] HCO3 ARTERIAL 25 22 - 26 mmol/L [facility] Blood specimen (specimen) 05/20/2008 10:48 AM CDT 05/20/2008 10:48 AM CDT us Brijesh Bird MD CHEMISTRY ORDERABLES Rosenda chavez Result INTERFACE SYSTEM Refer to clinic/hospital department [facility] CLIA# [id number] [address] [place] [address] * (ABNORMAL) POC RT, BLOOD GASES (05/20/2008 10:35 AM CDT) PCO2 ARTERIAL 37 35 - 48 mm Hg [facility] HCO3 ARTERIAL 24 22 - 26 mmol/L [facility] COMMENT, GASES POC POST PROTAMINE [facility] PATIENT'S TEMPERATURE 37.0 Degree C [facility] LACTIC ACID 2.1 0.5 - 2.2 mmol/L [facility] CALICUM IONIZED, WHOLE BLOOD 4.81 4.76 - 5.16 mg/dL [facility] PO2 ARTERIAL 100 83 - 108 mm Hg [facility] SODIUM POC 136 135 - 145 mmol/L [facility] PH ARTERIAL 7.41 7.35 - 7.45 [facility] BASE EXCESS ABG -1.0 -2.0 - 3.0 mmol/L [facility] HEMATOCRIT POC 25.0(L) 35.5 - 44.0 % [facility] GLUCOSE POC 110(H) 65 - 99 mg/dL [facility] O2 SAT EST ABG POC 98 95 - 99 % [facility] POTASSIUM POC 4.5 3.5 - 4.9 mmol/L [facility] TCO2, ABG POC 25(H) 19 - 24 mmol/L [facility] Blood specimen (specimen) 05/20/2008 10:35 AM CDT 05/20/2008 10:35 AM CDT us Brijesh Bird MD CHEMISTRY ORDERABLES Rosenda chavez Result INTERFACE SYSTEM Refer to clinic/hospital department [facility] CLIA# [id number] [address] [place] [address] * (ABNORMAL) POC RT, BLOOD GASES (05/20/2008 10:05 AM CDT) PH ARTERIAL 7.48(H) 7.35 - 7.45 [facility] BASE EXCESS ABG 1.1 -2.0 - 3.0 mmol/L [facility] GLUCOSE POC 112(H) 65 - 99 mg/dL [facility] HEMATOCRIT POC 24.0(L) 35.5 - 44.0 % [facility] O2 SAT EST ABG POC 100(H) 95 - 99 % [facility] TCO2, ABG POC 26(H) 19 - 24 mmol/L [facility] POTASSIUM POC 5.1(H) 3.5 - 4.9 mmol/L [facility] PCO2 ARTERIAL 33(L) 35 - 48 mm Hg [facility] COMMENT, GASES POC CPB #4 [facility] HCO3 ARTERIAL 25 22 - 26 mmol/L [facility] PATIENT'S TEMPERATURE 37.0 Degree C [facility] CALICUM IONIZED, WHOLE BLOOD 4.73(L) 4.76 - 5.16 mg/dL [facility] LACTIC ACID 1.7 0.5 - 2.2 mmol/L [facility] PO2 ARTERIAL 341(H) 83 - 108 mm Hg [facility] SODIUM POC 133(L) 135 - 145 mmol/L [facility] Blood specimen (specimen) 05/20/2008 10:05 AM CDT 05/20/2008 10:05 AM CDT us Brijesh Bird MD CHEMISTRY ORDERABLES Rosenda chavez Result INTERFACE SYSTEM Refer to clinic/hospital department [facility] CLIA# [id number] [address] [place] [address] * (ABNORMAL) POC RT, BLOOD GASES (05/20/2008 9:35 AM CDT) O2 SAT EST ABG POC 100(H) 95 - 99 % [facility] HEMATOCRIT POC 24.0(L) 35.5 - 44.0 % [facility] BASE EXCESS ABG 0.1 -2.0 - 3.0 mmol/L [facility] GLUCOSE POC 107(H) 65 - 99 mg/dL [facility] PCO2 ARTERIAL 38 35 - 48 mm Hg [facility] POTASSIUM POC 4.6 3.5 - 4.9 mmol/L [facility] PCO2 TEMP CORRECT 32 mm Hg [facility] TCO2, ABG POC 26(H) 19 - 24 mmol/L [facility] PATIENT'S TEMPERATURE 33.0 Degree C [facility] HCO3 ARTERIAL 25 22 - 26 mmol/L [facility] COMMENT, GASES POC CPB #3 [facility] PO2 ARTERIAL 251(H) 83 - 108 mm Hg [facility] PO2 TEMP CORRECT 233 mm Hg [facility] LACTIC ACID 1.9 0.5 - 2.2 mmol/L [facility] CALICUM IONIZED, WHOLE BLOOD 4.93 4.76 - 5.16 mg/dL [facility] PH ARTERIAL 7.42 7.35 - 7.45 [facility] PH TEMP CORRECT 7.48 [facility] SODIUM POC 134(L) 135 - 145 mmol/L [facility] Blood specimen (specimen) 05/20/2008 9:35 AM CDT 05/20/2008 9:35 AM CDT us Brijesh Bird MD CHEMISTRY ORDERABLES Rosenda chavez Result INTERFACE SYSTEM Refer to clinic/hospital department [facility] CLIA# [id number] [address] [place] [address] * (ABNORMAL) POC RT, BLOOD GASES (05/20/2008 9:06 AM CDT) GLUCOSE POC 91 65 - 99 mg/dL [facility] HEMATOCRIT POC 22.0(AA) 35.5 - 44.0 % [facility] PCO2 ARTERIAL 38 35 - 48 mm Hg [facility] PCO2 TEMP CORRECT 32 mm Hg [facility] TCO2, ABG POC 26(H) 19 - 24 mmol/L [facility] POTASSIUM POC 3.8 3.5 - 4.9 mmol/L [facility] PATIENT'S TEMPERATURE 33.0 Degree C [facility] COMMENT, GASES POC CPB #2 [facility] HCO3 ARTERIAL 25 22 - 26 mmol/L [facility] PO2 ARTERIAL 275(H) 83 - 108 mm Hg [facility] CALICUM IONIZED, WHOLE BLOOD 4.37(L) 4.76 - 5.16 mg/dL [facility] PO2 TEMP CORRECT 257 mm Hg [facility] LACTIC ACID 2.1 0.5 - 2.2 mmol/L [facility] PH ARTERIAL 7.42 7.35 - 7.45 [facility] PH TEMP CORRECT 7.48 [facility] SODIUM POC 136 135 - 145 mmol/L [facility] O2 SAT EST ABG POC 100(H) 95 - 99 % [facility] BASE EXCESS ABG 0.1 -2.0 - 3.0 mmol/L [facility] Blood specimen (specimen) 05/20/2008 9:06 AM CDT 05/20/2008 9:06 AM CDT us Brijesh Bird MD CHEMISTRY ORDERABLES Rosenda chavez Result INTERFACE SYSTEM Refer to clinic/hospital department [facility] CLIA# [id number] [address] [place] [address] * (ABNORMAL) POC RT, BLOOD GASES (05/20/2008 9:02 AM CDT) [facility] IONIZED, WHOLE BLOOD 4.45(L) 4.76 - 5.16 mg/dL [facility] LACTIC ACID 2.1 0.5 - 2.2 mmol/L [facility] PH TEMP CORRECT 7.39 [facility] SODIUM POC 135 135 - 145 mmol/L [facility] O2 SAT EST MVBG POC 67 40 - 70 % [facility] PO2 TEMP CORRECT 29 mm Hg [facility] GLUCOSE POC 92 65 - 99 mg/dL [facility] HEMATOCRIT POC 22.0(AA) 35.5 - 44.0 % [facility] PCO2 VENOUS 52(H) 38 - 50 mm Hg [facility] PCO2 TEMP CORRECT 44 mm Hg [facility] TCO2, MVBG POC 29(H) 22 - 26 mmol/L [facility] POTASSIUM POC 3.9 3.5 - 4.9 mmol/L [facility] PATIENT'S TEMPERATURE 33.0 Degree C [facility] BASE EXCESS VENOUS 1.2 -2.0 - 3.0 mmol/L [facility] COMMENT, GASES POC CPB #1 [facility] PO2 MVBG 38 25 - 40 mm Hg [facility] HCO3 MIXED VENOUS 27 22 - 29 mmol/L [facility] PH MVBG 7.33 7.32 - 7.43 [facility] Blood specimen (specimen) 05/20/2008 9:02 AM CDT 05/20/2008 9:02 AM CDT us Brijesh Bird MD CHEMISTRY ORDERABLES Rosenda chavez Result INTERFACE SYSTEM Refer to clinic/hospital department [facility] CLIA# [id number] [address] [place] [address] * (ABNORMAL) POC RT, BLOOD GASES (05/20/2008 8:43 AM CDT) PO2 ARTERIAL 259(H) 83 - 108 mm Hg [facility] SODIUM POC 137 135 - 145 mmol/L [facility] PH ARTERIAL 7.39 7.35 - 7.45 [facility] BASE EXCESS ABG 3.5(H) -2.0 - 3.0 mmol/L [facility] HEMATOCRIT POC 31.0(L) 35.5 - 44.0 % [facility] GLUCOSE POC 100(H) 65 - 99 mg/dL [facility] O2 SAT EST ABG POC 100(H) 95 - 99 % [facility] POTASSIUM POC 3.8 3.5 - 4.9 mmol/L [facility] TCO2, ABG POC 31(H) 19 - 24 mmol/L [facility] PCO2 ARTERIAL 48 35 - 48 mm Hg [facility] HCO3 ARTERIAL 29(H) 22 - 26 mmol/L [facility] COMMENT, GASES POC POST HEPARIN [facility] PATIENT'S TEMPERATURE 37.0 Degree C [facility] LACTIC ACID 1.2 0.5 - 2.2 mmol/L [facility] CALICUM IONIZED, WHOLE BLOOD 4.53(L) 4.76 - 5.16 mg/dL [facility] Blood specimen (specimen) 05/20/2008 8:43 AM CDT 05/20/2008 8:43 AM CDT us Brijesh Bird MD CHEMISTRY ORDERABLES Rosenda chavez Result INTERFACE SYSTEM Refer to clinic/hospital department [facility] CLIA# [id number] [address] [place] [address] * (ABNORMAL) POC RT, BLOOD GASES (05/20/2008 7:37 AM CDT) SODIUM POC 137 135 - 145 mmol/L [facility] PH ARTERIAL 7.43 7.35 - 7.45 [facility] BASE EXCESS ABG 3.8(H) -2.0 - 3.0 mmol/L [facility] GLUCOSE POC 95 65 - 99 mg/dL [facility] HEMATOCRIT POC 31.0(L) 35.5 - 44.0 % [facility] O2 SAT EST ABG POC 100(H) 95 - 99 % [facility] TCO2, ABG POC 30(H) 19 - 24 mmol/L [facility] POTASSIUM POC 3.5 3.5 - 4.9 mmol/L [facility] PCO2 ARTERIAL 43 35 - 48 mm Hg [facility] COMMENT, GASES POC POST INDUCTION [facility] HCO3 ARTERIAL 28(H) 22 - 26 mmol/L [facility] PATIENT'S TEMPERATURE 37.0 Degree C [facility] CALICUM IONIZED, WHOLE BLOOD 4.53(L) 4.76 - 5.16 mg/dL [facility] LACTIC ACID 1.5 0.5 - 2.2 mmol/L [facility] PO2 ARTERIAL 285(H) 83 - 108 mm Hg [facility] Blood specimen (specimen) 05/20/2008 7:37 AM CDT 05/20/2008 7:37 AM CDT us Brijesh Bird MD CHEMISTRY ORDERABLES Rosenda chavez Result Performing Organization Address City/[facility] de Phone Number INTERFACE SYSTEM Refer to clinic/hospital department [facility] CLIA# [id number] [address] [place] [address] * TYPE & CROSS ADDITIONAL PACKED CELLS (05/20/2008 6:30 AM CDT) Specimen of unknown material (specimen) 05/20/2008 6:30 AM CDT 05/20/2008 6:40 AM CDT Narrative INTERFACE SYSTEM - 05/20/2008 6:41 AM CDT please keep 2 units ahead for surgery us Viktoriya Gavin MD BLOOD BANK ORDERABLES Rosenda chavez Result Performing Organization Address [facility] de Phone Number INTERFACE SYSTEM Refer to clinic/hospital department * XR CHEST PA AND LATERAL (05/19/2008 10:01 PM CDT) Anatomical Region Laterality Modality Chest Other 05/19/2008 10:0 1 PM CDT Narrative 05/20/2008 7:14 AM CDT [facility] [address] [place], [place] [address] Admit Date: 05/19/2008 A[place]BE [place] Sex: F Admit Prov: BRIJESH BIRD Date: 1945 Primary Care Prov: CMRN: [id number] Room: [place] [address] SSN: [id number] IMAGING SERVICES Ordering Prov: N/A Accession Number: [id number] Interpretation CHEST, PA AND LATERAL, 05/19/2008 History: Angina, chest pain, preoperative examination. Findings: No infiltrate, pleural effusion or pneumothorax is present. The heart is enlarged. Mediastinum and pulmonary vascularity are normal. Impression: No active pulmonary disease. . Dictated by: NATE PEOPLES 05/19/2008 22:17 Electronically signed by: NATE PEOPLES 05/20/2008 07:13 Transcribed: 05/19/2008 22:32 SJ Procedure Note Nate Peoples MD - 05/20/[address] [address] Admit Date: 05/19/2008 ABEBE [place] Sex: F Admit Prov: BRIJESH BIRD Date: 1945 [facility] Prov: CMRN: [id number] Room: [place] [address] SSN: [id number] IMAGING SERVICES Ordering Prov: N/A Interpretation CHEST, [...] (05/19/2008 10:00 PM CDT) PRELIMINARY REPORT Pending [facility] FINAL REPORT No growth 24 hours [facility] 05/19/2008 10:0 0 PM CDT 05/19/2008 11:22 PM CDT us Viktoriya Gavin MD MICROBIOLOGY - GENERAL ORD ERABLES Final Result Performing Organization Address City/[facility]/ZIP Co de Phone Number INTERFACE SYSTEM Refer to clinic/hospital department [facility] CLIA# [id number] [address] [place] [address] * (ABNORMAL) URINALYSIS (05/19/2008 10:00 PM CDT) PH UA 5.0 5.0 - 8.0 [facility] WBC UA 13(H) 0 - 5 /HPF [facility] KETONES UA Negative Negative [facility] CLARITY UA Slt. Cloudy(A) Clear [facility] BILIRUBIN UA Negative Negative [facility] PROTEIN UA Negative Negative [facility] LEUKOCYTE ESTERASE UA 3+(A) Negative [facility] RBC UA 3 0 - 4 /HPF [facility] SPECIFIC GRAVITY UA 1.007 1.001 - 1.035 [facility] GLUCOSE UA Negative Negative [facility] BLOOD UA Negative Negative [facility] COLOR UA Colorless [facility] NITRITE UA Negative Negative [facility] EPITHELIAL CELLS, URINE Many /HPF [facility] UROBILINOGEN UA <1 <=1 mg/dL [facility] 05/19/2008 10:0 0 PM CDT 05/19/2008 10:31 PM CDT us Viktoriya Gavin MD URINE ORDERABLES Final Res ult Performing Organization Address City/[facility]/ZIP Co de Phone Number INTERFACE SYSTEM Refer to clinic/hospital department [facility] CLIA# [id number] [address] [place] [address] * URINALYSIS WITH REFLEX CULTURE (05/19/2008 10:00 PM CDT) URINE CULTURE ORDER Culture ordered [facility] Comment: Criteria for a reflex culture [...] ult INTERFACE SYSTEM Refer to clinic/hospital department [facility] CLIA# [id number] [address] [facility] [facility] [place] [address] * CBC WITH DIFFERENTIAL (05/19/2008 4:15 PM CDT) MCV 93.0 82.0 - 99.0 fL [facility] PLATELETS 176 140 - 350 K/uL [facility] HEMOGLOBIN 12.5 11.8 - 14.8 g/dL [facility] RDW 13.1 11.5 - 14.5 % [facility] WBC 4.7 4.0 - 9.8 K/uL [facility] MCH 31.3 27.2 - 32.6 pg [facility] MPV 12.4 9.3 - 12.4 fL [facility] HEMATOCRIT 37.2 35.5 - 44.0 % [facility] RDW-STDEV 43.9 37.1 - 48.7 fL [facility] RBC 4.00 3.90 - 4.90 M/uL [facility] MCHC 33.6 31.5 - 35.5 % [facility] NEUTROPHIL ABSOLUTE 2.47 1.90 - 7.00 K/uL [facility] EOSINOPHILS 3 0 - 7 % [facility] EOSINOPHIL ABSOLUTE 0.16 0.00 - 0.70 K/uL [facility] LYMPHOCYTES 38 16 - 45 % [facility] LYMPHOCYTE ABSOLUTE 1.78 0.70 - 4.50 K/uL [facility] BASOPHILS 1 0 - 2 % [facility] BASOPHILS ABSOLUTE 0.04 0.00 - 0.20 K/uL [facility] MONOCYTES 5 3 - 13 % [facility] MONOCYTE ABSOLUTE 0.22 0.10 - 1.30 K/uL [facility] NEUTROPHILS 53 45 - 70 % [facility] Blood specimen (specimen) 05/19/2008 4:15 PM CDT 05/19/2008 4:32 PM CDT us Viktoriya Gavin MD HEMATOLOGY ORDERABLES Edit ed Performing Organization Address [facility] de Phone Number INTERFACE SYSTEM Refer to clinic/hospital department [facility] CLIA# [id number] [address] [facility] [place] [address] * POC ACTIVATED CLOTTING TIME (05/19/2008 2:25 PM CDT) ACT POC 121 Seconds [facility] Comment: ansiNote sheath pull range change effective 02/24/2006. ACT value for sheath pull at [facility] has been established to be < or = to 140. (See also Nursing Procedures for sheath pull in related nursing areas) Blood specimen (specimen) 05/19/2008 2:25 PM CDT 05/19/2008 2:25 PM CDT us Brijesh Bird MD POINT OF CARE TESTING Fin al Result Performing Organization Address [facility]/State/ZIP Co de Phone Number INTERFACE SYSTEM Refer to clinic/hospital department [facility] CLIA# [id number] [address] [place] [address] * (ABNORMAL) COMPREHENSIVE METABOLIC PANEL (05/19/2008 1:25 PM CDT) AST 18 12 - 32 U/L [facility] BUN 14 6 - 20 mg/dL [facility] CALCIUM 9.1 8.6 - 10.2 mg/dL [facility] ALBUMIN 3.6 3.4 - 4.8 g/dL [facility] CHLORIDE 104 96 - 108 mmol/L [facility] CREATININE 0.70 0.51 - 0.95 mg/dL [facility] ALT 19 0 - 31 U/L [facility] SODIUM 137 135 - 145 mmol/L [facility] ALKALINE PHOSPHATASE 75 35 - 104 U/L [facility] CO2 25 22 - 30 mmol/L [facility] BILIRUBIN TOTAL 0.2 0.2 - 1.0 mg/dL [facility] POTASSIUM 3.7 3.5 - 4.9 mmol/L [facility] TOTAL PROTEIN 5.9(L) 6.3 - 8.6 g/dL [facility] GLUCOSE 88 65 - 99 mg/dL [facility] GFR, >60 >=60 mL/min/1. 7 sq meter [facility] GFR >60 >=60 mL/min/1. 7 sq meter [facility] Comment: Modification of Diet in Renal Disease (MDRD) study formula. Estimated GFR rate interpretative information for both Americans and non- Americans is available on the [facility] Intranet at: [email or web address] Select: Lab Policies and Procedures Select: Reference Ranges - GFR Blood specimen (specimen) 05/19/2008 1:25 PM CDT 05/19/2008 1:39 PM CDT Brijesh Bird MD CHEMISTRY ORDERABLES Edit ed Performing Organization Address [facility] Phone Number INTERFACE SYSTEM Refer to clinic/hospital department [facility] CLIA# [id number] [address] [place] [address] * POC ACTIVATED CLOTTING TIME (05/19/2008 1:19 PM CDT) ACT POC 161 Seconds [facility] Comment: Note sheath pull range change effective 02/24/2006. ACT value for sheath pull at [facility] has been established to be < or = to 140. (See also Nursing Procedures for sheath pull in related nursing areas) Blood specimen (specimen) 05/19/2008 1:19 PM CDT 05/19/2008 1:19 PM CDT Brijesh Bird MD POINT OF CARE TESTING Fin al Result Performing Organization Address [facility] Phone Number INTERFACE SYSTEM Refer to clinic/hospital department [facility] CLIA# [id number] [address] [place] [address] * TYPE AND CROSSMATCH (05/19/2008 12:48 PM CDT) HISTORY CHECK No Historical ABO/Rh [facility] SPECIMEN LIFE 3 days from drawdate [facility] ABO/RH TYPE A Negative [facility] ANTIBODY SCREEN Negative [facility] Blood specimen (specimen) 05/19/2008 12:48 PM CDT Viktoriya Gavin MD BLOOD BANK ORDERABLES Edit ed Performing Organization Address [facility] Phone Number INTERFACE SYSTEM Refer to clinic/hospital department [facility] CLIA# [id number] [facility] [place] [address] * CL CORONARY ANGIOGRAM (05/19/2008 11:59 AM CDT) Narrative INTERFACE SYSTEM - 05/19/2008 11:59 AM CDT [facility] [address] [place] [address] [email or web address] Comprehensive Report Patient: Abebe Cunningham Study ID: [id number] Gender: F : 1945 Age: 63 years Race: 1 Room: Bed: Height: 67 in ( 170.2 cm ) Study Date: May 19, 2008 Patient status: Outpatient Weight: 222 lb ( 100.9 kg ) Access. #: [id number] POC: Attending MD: Kamini Performing MD: Kamini [...] 11:40:08 Procedure Note Provider, Historical - 05/19/2008 [facility] [address] [place] [address] [email or web address] Cardiac Catheterization Comprehensive Report Patient: Abebe Cunningham Study ID: [id number] Gender: F : 1945 Age: 63 years Race: 1 Room: Bed: Height: 67 in ( 170.2 cm ) Study Date: May 19, 2008 Patient status: Outpatient Weight: 222 lb ( 100.9 kg ) Access. #: [id number] POC: Attending MD: Kamini Performing MD: Kamini [...] ORDERABLES Fi nal Result Performing Organization Address [facility] de Phone Number INTERFACE SYSTEM Refer to clinic/hospital department * POC ACTIVATED CLOTTING TIME (05/19/2008 11:53 AM CDT) ACT POC 192 Seconds [facility] Comment: Note sheath pull range change effective 02/24/2006. ACT value for sheath pull at [facility] has been established to be < or = to 140. (See also Nursing Procedures for sheath pull in related nursing areas) Blood specimen (specimen) 05/19/2008 11:53 AM CDT 05/19/2008 11:53 AM CDT us Brijesh Bird MD POINT OF CARE TESTING Fin al Result Performing Organization Address [facility] Phone Number INTERFACE SYSTEM Refer to clinic/hospital department [facility] CLIA# [id number] [address] [place] [address] * POC ACTIVATED CLOTTING TIME (05/19/2008 10:34 AM CDT) ACT POC 228 Seconds [facility] Comment: Note sheath pull range change effective 02/24/2006. ACT value for sheath pull at [facility] has been established to be < or = to 140. (See also Nursing Procedures for sheath pull in related nursing areas) Blood specimen (specimen) 05/19/2008 10:34 AM CDT 05/19/2008 10:34 AM CDT Brijesh Bird MD POINT OF CARE TESTING Fin al Result INTERFACE SYSTEM Refer to clinic/hospital department [facility] CLIA# [id number] [address] [place] [address] documented in this encounter Visit Diagnoses Diagnosis Other and unspecified angina pectoris documented in this encounter Care Teams [employer] Professional Relationship Specialty Start Date End Date Murray Bourne MD [address] [place] [address] PCP - General Family Practice 05/25/20 documented as of this encounter
--- OUTSIDE RECORDS SUMMARY | 2024-12-06 06:15 | XMS_ITS | Clinical Summary ---
Author Organization [facility] Address [address] [place] [address] Phone Care Team Providers Care Feeder Loader Name Role Phone Murray Bourne MD Primary [...] 300 mg by mouth 2 times daily. 06/02/2020 Active polyethylene glycol (MIRALAX) 17 gram Powder in Packet Take 1 Packet (17 Grams) by mouth 1 time daily as needed for Constipation . 06/20/2020 Active Cholecalciferol , Vitamin D3, 50 mcg (2,000 unit) Capsule Take by mouth daily. 08/23/2022 Active traMADoL (ULTRAM) 50 mg tablet Take 50 mg by mouth every 8 hours as needed. 08/02/2022 Active lisinopriL (PRINIVIL) 10 mg tablet Take 10 mg by mouth daily. 08/26/2022 Active cyanocobalamin 1,000 mcg Tablet Take 1,000 mcg by mouth daily. Active aspirin (ECOTRIN EC) 81 mg Tablet, Delayed Release (E.C.) Take 81 mg by mouth daily. Active FeroSuL 325 mg (65 mg iron) tablet Take 1 Tablet (325 mg) by mouth 3 times daily with meals. 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 Real [address] [place] [address] Koby Vinson MD 11/09/2024 External Device Data STL ABSTRACTION Provider, Abstract 11/08/2024 External Device Data STL ABSTRACTION Provider, Abstract 11/06/2024 External Device Data STL ABSTRACTION Provider, Abstract 10/28/2024 2:30 PM CONSTRUCTION RECRUITER Office Visit [facility] [address] [place] [address] Koby Vinson MD Iron deficiency anemia, unspecified iron deficiency anemia type (Primary Dx) 10/21/[address] [facility] - Real [facility] [address] [place] [address] Koby Vinson MD 10/21/[address] [facility] - Real [address] [place] [address] Koby Vinson MD 10/18/[address] [facility] - Real [address] [place] [address] Koby Vinson MD 10/15/[address] [facility] - Real [address] [place] [address] Koby Vinson MD Lab Results (Low hem. ) 10/15/[address] [facility] - [place] [address] Koby Vinson MD Chronic anemia (Primary Dx) 10/01/2024 External Device Data STL ABSTRACTION Provider, Abstract 10/01/[address] [facility] - Real [address] [place] [address] Koby Vinson MD 09/11/[address] [facility] - Real [facility] [address] Koby Vinson MD Chronic anemia (Primary Dx); Benign hypertension 09/11/[address] [facility] [place] [address] [address] Koby Vinson MD Anemia from Last 3 [...] Date Smoking Tobacco: Every Day Cigarettes 0.3 58.3 Started: 1964 Smokeless Tobacco: Never Tobacco Cessation:Ready to Q uit: Not Asked; Counseling Given: Not Answered Alcohol Use Standard Drinks/Week Comments Yes 0 (1 standard drink = 0.6 oz pur e alcohol) twice a year Comments No Sex and Gender Information Value Date Recorded Sex Assigned at Not on file Legal Sex Female 5:09 AM CONSTRUCTION RECRUITER Gender Identity Not on file Sexual Orientation Not on file Last Filed Vital Signs Vital Sign Reading Time Taken Comments Blood Pressure 132/77 10/28/2024 2:37 PM CONSTRUCTION RECRUITER Pulse 60 10/28/2024 2:37 PM CONSTRUCTION RECRUITER Temperature 36.1 C (97 F) 10/28/2024 2:37 PM CONSTRUCTION RECRUITER Respiratory Rate 15 10/28/2024 2:37 PM CONSTRUCTION RECRUITER Oxygen Saturation 94% 10/28/2024 2:37 PM CONSTRUCTION RECRUITER Inhaled Oxygen Concentration - - Weight 89.9 kg (198 lb 3.2 oz) 10/28/2024 2:37 P M CONSTRUCTION RECRUITER Height 170.2 cm (5' 7 ) 09/08/2022 3:24 PM CONSTRUCTION RECRUITER Body Mass Index 31.04 09/08/2022 3:24 PM CONSTRUCTION RECRUITER Plan of Treatment Upcoming Encounters Date Type Department Care Team (Late st Contact Info) Description 01/06/2025 2:00 PM CDT Office Visit [facility] - Real [address] [facility] [address] [place] [address] Koby Vinson MD [address] [facility] [address] [place] [address] Health Maintenance Due Date Last [...] years Discontinued Medical Devices Implanted Type Area Lactation Specialist Device Identifier Shelf Expiration Date Model / Serial / Lot Filler Bone Stimulan Paste 5cc W/Beads 620-005 - [id number] Implanted:Qty: 1 on 06/17/2020 by Bear Vasques MD at [facility] Biological N/A: Spine Lumbar [employer] 10/04/2022 620-005 / / [id number] Description:BRADEN [id number] Hemostatic Surgiflo 8ml W/Thrombin 2994 - [id number] Implanted:Qty: 1 on 06/17/2020 by Bear Vasques MD at [facility] Hemostatic N/A: Spine Lumbar [employer] 06/03/2021 2994 / / [id number] Tad Cdh Solera Ccm 4.78v52zc Capped [id number] - [id number] Implanted:Qty: 1 on 06/17/2020 by Bear Vasques MD at [facility] Tad N/A: Spine Lumbar [employer] SOFAMOR DANEK [id number] / / Description:BRADEN [id number] Tad Cdh Solera Ccm 4.25w79kx Capped [id number] - [id number] Implanted:Qty: 1 on 06/17/2020 by Bear Vasques MD at [facility] Tad N/A: Spine Lumbar [employer]ANE[employer] [id number] / / Description:LOAD # [id number] DATE 06/09/2020 Screw Pratibha De La Garza Ma 6.5x45mm 4.75 Ext Tab [id number] - [id number] Implanted:Qty: 1 on 06/17/2020 by Bear Vasques MD at [facility] N/A: Spine Lumbar [employer] [id number] / / Description:LOAD # [id number] DATE 06/09/2020 Screw Solera Frederic Ma 6.5x40mm 4.75 Ext Tab [id number] - [id number] Implanted:Qty: 2 on 06/17/2020 by Bear Vasques MD at [facility] N/A: Spine Lumbar [employer] [id number] / / Description:LOAD # [id number] DATE 06/09/2020 Screw Solera Frederic Ma 7.5x35mm 4.75 Ext Tab [id number] - [id number] Implanted:Qty: 2 on 06/17/2020 by Bear Vasques MD at [facility] N/A: Spine Lumbar [employer] [id number] / / Description:LOAD # [id number] DATE 06/09/2020 Screw Solera Frederic Ma 7.5x40mm 4.75 Ext Tab [id number] - [id number] Implanted:Qty: 1 on 06/17/2020 by Bear Vasques MD at [facility] N/A: Spine Lumbar [employer] [id number] / / Description:LOAD # [id number] DATE 06/09/2020 Set Screw Solera Perc 4.75mm [id number] - [id number] Implanted:Qty: 6 on 06/17/2020 by Bear Vasques MD at [facility] N/A: Spine Lumbar [employer]K [id number] / / Description:LOAD # [id number] DATE 06/09/2020 Infuse Protein Kit Sm [id number] - [id number] Implanted:Qty: 1 on 06/17/2020 by Bear Vasques MD at [facility] N/A: Spine Lumbar [employer]ANEK 05/04/2022 [id number] / / [id number] Description:Requisition: [id number] Allograft Magnifuse Pc [id number] - [id number] Implanted:Qty: 1 on 06/17/2020 by Bear Vasques MD at [facility] Tissue N/A: Spine Lumbar [employer] 04/27/2022 [id number] / [id number] / Description:Requisition: [id number] Procedures Procedure Name Priority Date/Time Associated Diagnosis Comments CBC WITH DIFFERENTIAL Routine 10/17/2024 12:10 PM CONSTRUCTION RECRUITER COMPREHENSIVE METABOLIC PANEL Routine 09/27/2024 1:19 PM CONSTRUCTION RECRUITER CBC WITH AUTODIFFERENTIAL Routine 2024 1:08 PM CONSTRUCTION RECRUITER COMPREHENSIVE METABOLIC PANEL Routine 09/27/2024 1:05 PM CONSTRUCTION RECRUITER COLONOSCOPY REPORT Routine 05/03/2023 10 :56 AM CDT from Last 3 Months or Most Recently Relevant to Health Maintenance Results * CBC WITH DIFFERENTIAL (10/17/2024 12:10 PM CONSTRUCTION RECRUITER) Blood us Koby Vinson MD HEMATOLOGY ORDERABLES Final Res ult * COMPREHENSIVE METABOLIC PANEL (09/27/2024 1:19 PM CONSTRUCTION RECRUITER) Only the most recent of2 resultswithin the time period is included. Blood us Koby Vinson MD CHEMISTRY ORDERABLES Final Resu lt * CBC WITH AUTODIFFERENTIAL (09/27/2024 1:08 PM CONSTRUCTION RECRUITER) Blood us Koby Vinson MD HEMATOLOGY ORDERABLES [...] Address: [address] [employer] Commercial [employer] [id number] [facility] Advance Directives For more information, please contact: [phone] Documents on File Type Date Recorded Patient Semiconductor Dies Loader Expl anation Advance Directive POA 06/11/2020 1:30 PM A dvance Directive POA * Full Code (Latest Code Status on File) Date Activated Date Inactivated Comments 06/17/2020 3:50 PM 06/20/2020 6:06 PM * Full Code Date Activated Date Inactivated Comments 06/17/2020 9:10 AM 06/17/2020 3:50 PM * Full Code Date Activated Date Inactivated Comments 06/17/2020 7:51 AM 06/17/2020 9:10 AM Care Teams Feeder Loader Relationship Specialty Start Date End Date Murray Bourne MD [address] [place] [address] PCP - General Family Practice 05/25/20
--- OUTSIDE RECORDS SUMMARY | 2024-12-06 06:15 | XMS_ITS | Encounter Summary ---
Author Organization [facility] Address [address] [place] [address] Care Team Providers Care Tip Mender Name Role Phone Unavailable Primary Care Provider Unavailabl e Encounter Details Date Type Department Care Team (Late st Contact Info) Description 01/26/2023 Lab Requisition [facility] - Pathology Lab [address] [place] [address] Bola Arzola MD [facility] [address] [address] Anemia in other chronic diseases [...] AM CDT) Case Report Flow Cytometry Case: [id number] Authorizing Provider: Bola Arzola MD Collected: 01/26/2023 09:23 AM Ordering Location: [facility] Care Pathology Lab Received: 01/26/2023 12:48 PM Pathologist: Dav Hinds MD Specimen: Bone Marrow 01/26/2023 5:16 PM CDT U PATHOLOGY LAB Final Diagnosis Bone marrow, flow cytometric immunophenotypic analysis: - No evidence of non-Hodgkin lymphoma or high-grade myeloid neoplasm. - See interpretation. 01/26/2023 5:16 PM [facility] PATH[facility] Flow Cytometry Interpretation The bone [...] the flow cytometry specimen is reviewed for chemistry quality control technician purposes. The bone marrow aspirate specimen shows no evidence of involvement by non-Hodgkin lymphoma or a high-grade myeloid neoplasm. Correlation with clinical findings, the concurrent bone marrow core biopsy, and relevant cytogenetic/molecu lar studies is required. 01/26/2023 5:16 PM [facility] PATH[facility] Flow Cytometry Results Differential Result Comment Flow Cell Count /uL 21,300 Total Viability % 94.0 Lymphocytes % 17 Dim CD45 Region % 11 Monocytes % 9 Granulocytes % 63 [facility]23 [facility] Reason for test Anemia in other chronic diseases classified elsewhere 01/26/2023 5:16 PM [facility] PATH[facility] Client Specimen ID # [id number] 01/26/2023 5:16 PM [facility] PATH[facility] Number of markers 10 were performed. A-2 Flow CD10 A-3 Flow CD13 A-5 Flow CD20 A-1 Flow CD5 A-4 Flow CD19 A-6 Flow CD33 A-7 Flow CD34 A-8 Flow CD45 A-9 [place]+CD19+ A-10 Lambda+CD19+ 01/26/2023 5:16 PM [facility] PATH[facility] Pathologist Location at [facility] 01/26/2023 5:16 PM [facility] PATH[facility] Disclaimer Test performed at [facility], [address] [place] [address], [address]. *The established laboratory minimum viability is 70%. [...] complexity clinical testing. 01/26/2023 5:16 PM CDT [facility] PATHOLOGY LAB Embedded Images 5:16 PM CDT [facility] PATHOLOGY LAB Pathology/Cytolo gy BONE MARROW SPECIMEN / Unknown 01/26/2023 9:23 AM CDT 01/26/2023 12:48 PM CDT Bola Arzola MD LAB - PATHOLOGY/CYTO LOGY ORDERABLES [facility] PATHOLOGY LAB [address] [phone] documented in this encounter Visit Diagnoses Diagnosis Anemia in other chronic diseases classified elsewhere documented in this encounter
--- OUTSIDE RECORDS SUMMARY | 2024-12-06 06:15 | XMS_ITS | Encounter Summary ---
Author Organization [facility] Address [address] [place] [address] Care Team Providers Care Product Mgr Name Role Phone Murray Bourne MD Primary Care Provider Encounter Details Date Type Department Care Team (Latest Contact Info) Description 08/18/2006 Outpatient Historical HIS CARD GRANTS ASSISTANT Derrick Bird MD [address] [facility] [address] [place] [address] Coronary Atherosclerosis of [place] Coronary Artery (Primary Dx) Social History Tobacco Use Types Packs/Day Years Used Date Smoking Tobacco: Never Assessed Comments Unknown Sex and Gender Information Value Date Recorded Sex Assigned at Not on file Legal Sex Female 5:09 AM 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 ENGINEER Gender Identity Not on file Sexual Orientation Not on file documented as of this encounter Plan of Treatment Upcoming Encounters Date Type Department Care Team (Late st Contact Info) Description 01/06/2025 2:00 PM CDT Office Visit [facility] Oncology and Hematology - Real [address] [facility] [address] [place] [address] Koby Vinson MD [address] [facility] [address] [place] [address] documented as of this encounter Visit Diagnoses Diagnosis Coronary atherosclerosis of [place] coronary artery- Primary documented in this encounter Care Teams Product Mgr Relationship Specialty Start Date End Date Murray Bourne MD [address] [place] [address] PCP - General Family Practice 05/25/20 documented as of this encounter
--- NOTE | 2024-12-06 06:47 | SUR.OPER ---
Patient brought to GI Lab. Instructions for patient undergoing Capsule Endoscopy reviewed with patient. Consent form signed. Sensor array applied to patient's abdomen and connected to recorded. Patient swallowed capsule with 12ozs of water infused with Simethicone. Patient instructed they may have clear liquids at 0830 this AM and eat or drink at 1030 this AM. Patient instructed to return to GI Lab at 1500 this afternoon for removal of recording device and to call [phone] or to return to the hospital if any nausea and vomiting or abdominal pain is experienced. PT stated understood instruction accompanied by Daughter Carlene
== END 2024-12-06 06:12 | disposition home or self-care (01) ==
PROVIDERS: PCP Family Medicine; Referring Provider Nurse Practitioner Family; Visit Provider Internal Medicine Gastroenterology
PROC: 0DJ07ZZ Inspection of Upper Intestinal Tract, Via Natural or Artificial Opening (ICD-10-PCS; CPT 91110; principal; 2024-12-06 07:00)
DX: D50.9 Iron deficiency anemia, unspecified (principal)
CPT/HCPCS: 91110

== ENCOUNTER 2024-12-23 18:14 | Emergency (ER) | payer MEDICARE, SELFPAY ==
--- NOTE | ~2024-12-23 | CT_ITS ---
EXAMINATION: CT cervical spine wo con DATE: 12/23/2024 19:23 INDICATION: trauma pain TECHNIQUE: Computed tomography (CT) of the cervical spine was performed without intravenous contrast. Automated exposure control and iterative reconstruction technique were employed. The dose-length pro duct was 412.17 mGy-cm. COMPARISON: X-ray skull 06/21/2023; CTA brain carotid 07/05/2022. FINDINGS: Vertebral Body Alignment: Reversed lordosis centered at C5. Stable grade 2 anterolisthesis at C4-5. S table grade 1 retrolisthesis at C5-6. Craniocervical and atlantoaxial alignment: Moderate degenerative change. Alignment intact. Osseous structures/fracture: No evidence of a lytic or blastic process in the visualized spine. No e vidence of acute fracture. Interbody fusion and left facet fusion at C5-6. Congenitally unfused poste rior C1 arch. Cervical soft tissues: The paraspinal soft tissues planes are maintained. Degenerative changes: Multilevel severe degenerative disc disease and facet arthropathy. Severe right C3-4 and bilateral C4-5 neural foraminal narrowing secondary to degenerative changes. No severe cent ral canal narrowing. IMPRESSION: No acute fracture or traumatic malalignment in the cervical spine. Reviewed, dictated and finalized at location K.
--- NOTE | ~2024-12-23 | XR_ITS ---
EXAM: XR lumbar spine 2-3V DATE: 12/23/2024 19:15 HISTORY: trauma pain, PAIN TO LOWER LUMBER AFTER FALL . COMPARISON: 12/11/2020; CT abdomen pelvis 05/07/2024. FINDINGS: Osteopenia. 5 nonrib-bearing lumbar-type vertebral bodies. Posterior lumbar fusion hardwar e, intact, spanning L4-S1. Pedicles intact. Minimal grade 1 retrolistheses at L2-3 and L3-4. Vertebra l body heights preserved. Multilevel degenerative disc disease, severe at L2-3 through L5-S1. Multile remedios facet arthropathy. No fracture or dislocation. IMPRESSION: No acute fracture or traumatic malalignment detected in the lumbar spine. Reviewed, dictated and finalized at location K.
--- NOTE | ~2024-12-23 | CT_ITS ---
EXAMINATION: CT brain wo con DATE: 12/23/2024 19:23 INDICATION: pain trauma . TECHNIQUE: Computed tomography (CT) of the head was performed without intravenous contrast. The mA wa s adjusted according to patient size. Iterative reconstruction technique was employed. The dose-lengt h product was 681.00 mGy-cm. COMPARISON: 02/25/2023. FINDINGS: No acute intracranial hemorrhage or extra-axial fluid collection. No hydrocephalus, mass, or herniation. No acute ischemic infarct. Unremarkable dural venous sinus attenuation. No acute osseous abnormality. The aerated spaces are clear. Mild atrophy and chronic white matter change. Atherosclerotic intracranial calcification. Bilateral l ens replacements. Old right basal ganglia and periventricular lacunar infarcts. IMPRESSION: No acute intracranial process. Reviewed, dictated and finalized at location K.
--- OUTSIDE RECORDS SUMMARY | 2024-12-23 18:27 | XMS_ITS | Encounter Summary ---
Author Organization [facility] Address [address] [place] [address] Care Team Providers Care Manager Employment Name Role Phone Murray Bourne MD Primary Care Provider Encounter Details Date Type Department Care Team (Latest Contact Info) Description 06/19/2008 Outpatient Historical HIS [facility] JAVIER Willis, Viktoriya Allen MD [address] [facility] [place] [address] Coronary Atherosclerosis of [place] Coronary Artery Social History Tobacco Use Types Packs/Day Years Used Date Smoking Tobacco: Never Assessed Comments Unknown Sex and Gender Information Value Date Recorded Sex Assigned at Not on file Legal Sex Female 5:09 AM DOCUMENT ADVISOR Gender Identity Not on file Sexual Orientation Not on file documented as of this encounter Plan of Treatment Upcoming Encounters Date Type Department Care Team (Late st Contact Info) Description 01/06/2025 2:00 PM CDT Office Visit [facility] Oncology and Hematology - Real [address] [facility] [address] [place] [address] Koby Vinson MD [address] [facility] [address] [place] [address] documented as of this encounter Procedures Procedure Name Priority Date/Time Associated Diagnosis Comments XR CHEST PA AND LATERAL 2 VW Routine 06/19/2008 12:37 PM CDT documented in this encounter Results * XR CHEST PA AND LATERAL (06/19/2008 12:37 PM CDT) Anatomical Region Laterality Modality Chest Other 06/19/2008 12:3 7 PM CDT Narrative 06/19/2008 12:42 PM CDT [place] [address] [place], [place] [address] Admit Date: 06/19/2008 YVONNE CUNNINGHAM Sex: F Admit Prov: VIKTORIYA WILLIS Date: 1945 Primary Care Prov: CMRN: [id number] Room: XAVI N: [id number] IMAGING SERVICES Ordering Prov: N/A Accession Number: [id number] Interpretation Chest 2 views 06/19/2008. History: Coronary vascular disease. Findings: Comparison study is dated 05/23/2008. Small left pleural effusion has decreased. The left lower lobe atelectasis has resolved . No pneumothorax is seen. The cardiac silhouette is mildly enlarged. . Dictated by: ZOEY COWART 06/19/2008 12:40 Electronically signed by: ZOEY COWART 06/19/2008 12:41 Procedure Note Zoey Cowart - 06/19/2008 [place] [address] [place], [place] [address] Admit Date: 06/19/2008 YVONNE CUNNING[place] Sex: F Admit Prov: VIKTORIYA WILLIS Date: 1945 Primary Care Prov: CMRN: [id number] Room: [place] SSN: [id number] IMAGING SERVICES Ordering Prov: N/A Interpretation Chest 2 views 06/19/2008. History: Coronary vascular disease. Findings: Comparison study is dated 05/23/2008. Small left pleuraleffusion has decreased. The left lower lobe atelectasis has resolved . No pneumothorax is seen. The cardiac silhouette is mildly enlarged. . Dictated by: ZOEY COWART 06/19/2008 12:40 Electronically signed by: ZOEY COWART 06/19/2008 12:41 Viktoriya Willis MD DIAGNOSTIC IMAGING ORDERAB LES Final Result documented in this encounter Visit Diagnoses Diagnosis Coronary atherosclerosis of [place] coronary artery documented in this encounter Care Teams Manager Employment Relationship Specialty Start Date End Date Murray Bourne MD [address] [place] [address] PCP - General Family Practice 05/25/20 documented as of this encounter
--- OUTSIDE RECORDS SUMMARY | 2024-12-23 18:28 | XMS_ITS | Clinical Summary ---
Author Organization [facility] Address [address] [place] [address] Care Team Providers Care Elevator Repair Mechanic Name Role Phone Unavailable Primary Care Provider Unavailabl e Source Comments [facility],non-owned Affiliates and Associated Physician Practices is amultiple site organization consisting of ambulatory clinics and hospital sitesin [place], [place], [place] and [place]. This disclosure is being madepursuant to the Care Everywhere program and may not contain all information available regarding this patient. Last updated 18.[facility] Social History Tobacco Use Types Packs/Day Years Used Date Smoking Tobacco: Never Assessed Comments Unknown Sex and Gender Information Value Date Recorded Sex Assigned at Not on file Legal Sex Female 5:54 AM VET TECH Gender Identity Not on file Sexual Orientation [...] on patient's age to complete this topic Insurance MANAGED MEDICARE ADV [place] [id number] [facility] MANAGED MEDICARE ADV [place] [id number] AETNA MEDICARE ADV AETNA MEDICARE ADV SELF PAY NO INSURANCE Member Subscriber Plan / Payer (Ef fective for All Dates) Name:Abebe Cunningham Member ID:Not on file Relation to Subscriber:Not on file Name:ABEBE CUNN[place] Subscriber ID:Not on file (Home) Address: [address] [place] [address] Payer ID:Not on file Group ID:Not on file Type:Self Pay Address: [place], [place] MANAGED MEDICARE ADV MANAGED MEDICARE ADV
--- OUTSIDE RECORDS SUMMARY | 2024-12-23 18:28 | XMS_ITS | Encounter Summary ---
Author Organization [facility] Address [address] [place] [address] Care Team Providers Care Waste Oil Pumper Name Role Phone Murray Bourne MD Primary Care Provider Encounter Details Date Type Department Care Team (Latest Contact Info) Description 08/18/2006 Outpatient Historical HIS CARD JACQUARD LOOM FIXER Derrick Bird MD [address] [facility] [address] [place] [address] Coronary Atherosclerosis of [place] Coronary Artery (Primary Dx) Social History Tobacco Use Types Packs/Day Years Used Date Smoking Tobacco: Never Assessed Comments Unknown Sex and Gender Information Value Date Recorded Sex Assigned at Not on file Legal Sex Female 5:09 AM DIRECTOR OF ENTERPRISE APPLICATIONS Gender Identity Not on file Sexual Orientation Not on file documented as of this encounter Plan of Treatment Upcoming Encounters Date Type Department Care Team (Late st Contact Info) Description 01/06/2025 2:00 PM CDT Office Visit [facility] Oncology and Hematology - Real [address] [facility] [address] [place] [address] Koby Vinson MD [address] [facility] [address] [place] [address] documented as of this encounter Visit Diagnoses Diagnosis Coronary atherosclerosis of [place] coronary artery- Primary documented in this encounter Care Teams Waste Oil Pumper Relationship Specialty Start Date End Date Murray Bourne MD [address] [place] [address] PCP - General Family Practice 05/25/20 documented as of this encounter
--- OUTSIDE RECORDS SUMMARY | 2024-12-23 18:28 | XMS_ITS | CONTINUITY OF CARE DOCUMENT ---
Author Name mela plaza Address Unknown Organization [facility] Address [address] [place] [address] [address] [place] [address] Phone [phone] Care Team Providers Care Forming And Assembling Supervisor Name Role Phone Annalisa YAÑEZ, Silvio Unavailable JOEY BOSWELL MD Unavailable [phone] INSURANCE PROVIDERS Payer name Policy type / Coverage type [place] red libertarian ID UHC MEDICARE COMPLETE HMO Other [id number]
--- OUTSIDE RECORDS SUMMARY | 2024-12-23 18:28 | XMS_ITS | Clinical Summary ---
Author Organization [facility] Address [address] [place] [address] Phone Care Team Providers Care Costumer Name Role Phone Murray Bourne MD Primary [...] bypass graft) 03/14/20 17 Coronary arteriosclerosis in [place] artery 01/13 Overview (06/19/2020): Coronary arteriosclerosis in [place] Pure hypercholesterolemia 01/13/2015 Overview (06/19/2020): Pure hypercholesterolemia Encounters Date Type Department Care Team Description 12/03/2024 External Device Data [facility] ABSTRACTION Provider, Abstract 11/20/2024 External Device Data [place] ABSTRACTION Provider, Abstract 11/14/2024 Abstract [facility] [address] [place] [phone] Koby Vinson MD 11/09/2024 External Device Data [place] ABSTRACTION Provider, Abstract 11/08/2024 External Device Data [place] Provider, Abstract 11/06/2024 External Device Data [place] Provider, Abstract 10/28/2024 2:30 PM ASSISTANT PRESS OPERATOR Office Visit [facility] [address] [place] [phone] Koby Vinson MD Iron deficiency anemia, unspecified iron deficiency anemia type (Primary Dx) 10/21/2024 Orders Only [facility] [address] [place] [id number] Koby Vinson MD 10/21/2024 Abstract [facility] [address] [place] [id number] Koby Vinson MD 10/18/2024 Abstract [facility] [address] [place] [phone] Koyb Vinson MD 10/15/2024 Telephone [facility] [address] [place] [phone] Koby Vinson MD Lab Results (Low hem. ) 10/15/2024 Orders Only [facility] [address] [place] [phone] Koby Vinson MD Chronic anemia (Primary Dx) 10/01/2024 External Device Data [place] ABSTRACTION Provider, Abstract 10/01/2024 Orders Only [facility] - [facility] [address] [place] [phone] Koby Vinson MD from Last 3 Months Immunizations Immunization Administration [...] Tobacco: Every Day Cigarettes 0.3 58.3 Started: 1965 Smokeless Tobacco: Never Tobacco Cessation:Ready to Q uit: Not Asked; Counseling Given: Not Answered Alcohol Use Standard Drinks/Week Comments Yes 0 (1 standard drink = 0.6 oz pur e alcohol) twice a year Comments No Sex and Gender Information Value Date Recorded Sex Assigned at Not on file Legal Sex Female 5:09 AM ASSISTANT PRESS OPERATOR Gender Identity Not on file Sexual Orientation Not on file Last Filed Vital Signs Vital Sign Reading Time Taken Comments Blood Pressure 132/77 10/28/2024 2:37 PM ASSISTANT PRESS OPERATOR Pulse 60 10/28/2024 2:37 PM ASSISTANT PRESS OPERATOR Temperature 36.1 C (97 F) 10/28/2024 2:37 PM ASSISTANT PRESS OPERATOR Respiratory Rate 15 10/28/2024 2:37 PM ASSISTANT PRESS OPERATOR Oxygen Saturation 94% 10/28/2024 2:37 PM ASSISTANT PRESS OPERATOR Inhaled Oxygen Concentration - - Weight 89.9 kg (198 lb 3.2 oz) 10/28/2024 2:37 P M ASSISTANT PRESS OPERATOR Height 170.2 cm (5' 7 ) 09/08/2022 3:24 PM ASSISTANT PRESS OPERATOR Body Mass Index 31.04 09/08/2022 3:24 PM ASSISTANT PRESS OPERATOR Plan of Treatment Upcoming Encounters Date Type Department Care Team (Late st Contact Info) Description 01/06/2025 2:00 PM CDT Office Visit [facility] [address] [facility] [address] [place] [address] Koby Vinson MD [address] [facility] [address] [place] [address] Health Maintenance Due Date Last Done Comments DTAP/TDAP/TD VACCINES (1 - Tdap) 1964 PNEUMOCOCCAL VACCINE 50+ YEARS (1 of 2 - PCV) 02/14/19 66 ZOSTER VACCINE (1 of 2) 1997 OSTEOPOROSIS SCREENING 02/15/2012 RSV VACCINE (60+ or ) (1 - 1-dose 75+ series) 2022 INFLUENZA VACCINE (#1) 2024 COLORECTAL SCREENING Discontinued 05/03/2023 Colorectal Cancer Screening Discontinued FIT-DNA Q 3 years Discontinued FIT/FOBT Q 1 year Discontinued Flex Sig/CT Colonography Q 5 years Discontinued Medical Devices Implanted Type Area Machine Bookkeeper Device Identifier Shelf Expiration Date Model / Serial / Lot Filler Bone Stimulan Paste 5cc W/Beads 620-005 - [id number] Implanted:Qty: 1 on 06/17/2020 by [facility] Biological N/A: Spine Lumbar [employer] 10/04/2022 620-005 / / [id number] Description:BRADEN [id number] Hemostatic Surgiflo 8ml W/Thrombin 2994 - [id number] Implanted:Qty: 1 on 06/17/2020 by Bear Vasques MD at [facility] Hemostatic N/A: Spine Lumbar [employer] 06/03/2021 2994 / / [id number] Tad Cdh Solera Ccm 4.04n30vt Capped [id number] - [id number] Implanted:Qty: 1 on 06/17/2020 by Bear Vasques MD at [facility] Tad N/A: Spine Lumbar [employer] [id number] / / Description:BRADEN [id number] Tad Cdh Solera Ccm 4.37a34rr Capped [id number] - [id number] Implanted:Qty: 1 on 06/17/2020 by Bear Vasques MD at [facility] Tad N/A: Spine Lumbar [employer] [id number] / / Description:LOAD # [id number] DATE 06/09/2020 Screw Solera Frederic Ma 6.5x45mm 4.75 Ext Tab [id number] - [id number] Implanted:Qty: 1 on 06/17/2020 by Bear Vasques MD at [facility] Screw N/A: Spine Lumbar [employer] [id number] / / Description:LOAD # [id number] DATE 06/09/2020 Screw Solera Frederic Ma 6.5x40mm 4.75 Ext Tab [id number] - [id number] Implanted:Qty: 2 on 06/17/2020 by Bear Vasques MD at [facility] Screw N/A: Spine Lumbar [employer] [id number] / / Description:LOAD # [id number] DATE 06/09/2020 Screw Solera Frederic Ma 7.5x35mm 4.75 Ext Tab [id number] - [id number] Implanted:Qty: 2 on 06/17/2020 by Bear Vasques MD at [facility] N/A: Spine Lumbar [employer] [id number] / / Description:LOAD # [id number] DATE 06/09/2020 Screw Solera Frederic Ma 7.5x40mm 4.75 Ext Tab [id number] - [id number] Implanted:Qty: 1 on 06/17/2020 by Bear Vasques MD at [facility] N/A: Spine Lumbar [employer] [id number] / / Description:LOAD # [id number] DATE 06/09/2020 Set Screw Solera Perc 4.75mm [id number] - [id number] Implanted:Qty: 6 on 06/17/2020 by Bear Vasques MD at [facility] N/A: Spine Lumbar [employer] [id number] / / Description:LOAD # [id number] DATE 06/09/2020 Infuse Protein Kit Sm [id number] - [id number] Implanted:Qty: 1 on 06/17/2020 by Bear Vasques MD at [facility] N/A: Spine Lumbar [employer] 05/04/2022 [id number] / / [id number] Description:Requisition: [id number] Allograft Magn[employer]c [id number] - [id number] Implanted:Qty: 1 on 06/17/2020 by Bear Vasques MD at [facility] N/A: Spine Lumbar [employer] 04/27/2022 [id number] / [id number] / Description:Requisition: [id number] Procedures Procedure Name Priority Date/Time Associated Diagnosis Comments CBC WITH DIFFERENTIAL Routine 10/17/2024 12:10 PM ASSISTANT PRESS OPERATOR COMPREHENSIVE METABOLIC PANEL Routine 09/27/2024 1:19 PM ASSISTANT PRESS OPERATOR CBC WITH AUTODIFFERENTIAL Routine 2024 1:08 PM ASSISTANT PRESS OPERATOR COMPREHENSIVE METABOLIC PANEL Routine 09/27/2024 1:05 PM ASSISTANT PRESS OPERATOR COLONOSCOPY REPORT Routine 05/03/2023 10 :56 AM CDT from Last 3 Months or Most Recently Relevant to Health Maintenance Results * CBC WITH DIFFERENTIAL (10/17/2024 12:10 PM ASSISTANT PRESS OPERATOR) Blood us Koby Vinson MD HEMATOLOGY ORDERABLES Final Res ult * COMPREHENSIVE METABOLIC PANEL (09/27/2024 1:19 PM ASSISTANT PRESS OPERATOR) Only the most recent of2 resultswithin the time period is included. 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
--- OUTSIDE RECORDS SUMMARY | 2024-12-23 18:28 | XMS_ITS | Encounter Summary ---
Author Organization [facility] Address [address] [place] [address] Care Team Providers Care Microbiology Technician Name Role Phone Murray Bourne MD Primary Care Provider Encounter Details Date Type Department Care Team (Latest Contact Info) Description 05/19/2008 Outpatient Historical [employer] OFFICER Brijesh Bird MD [address] [facility] [address] [place] [address] Viktoriya Gavin MD [address] 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 Gender Identity Not on file Sexual Orientation Not on file documented as of this encounter Plan of Treatment Upcoming Encounters Date Type Department Care Team (Late st Contact Info) Description 01/06/2025 2:00 PM CDT Office Visit [facility] Oncology and Hematology - Real [address] [facility] [address] [place] [address] Koby Vinson MD [address] [facility] [address] [place] [address] documented as of this encounter [...] 99 mg/dL [facility] Venous blood specimen (specimen) 05/24/2008 9:29 AM CDT 05/24/2008 9:29 AM CDT Brijesh Bird MD POINT OF CARE TESTING Fin al Result INTERFACE SYSTEM Refer to clinic/hospital department [facility] CLIA# [id number] [address] [place], [place] [address] * (ABNORMAL) POC GLUCOSE (05/24/2008 5:48 AM CDT) COMMENT, GLU POC Notified RN [facility] GLUCOSE POC 117(H) 65 - 99 mg/dL [facility] Venous blood specimen (specimen) 05/24/2008 5:48 AM CDT 05/24/2008 5:48 AM CDT us Brijesh Bird MD POINT OF CARE TESTING Fin al Result INTERFACE SYSTEM Refer to clinic/hospital department [facility] CLIA# [id number] [address] [place] [address] * (ABNORMAL) CBC WITH DIFFERENTIAL (05/24/2008 4:54 AM CDT) HEMOGLOBIN 9.8(L) 11.8 - 14.8 g/dL [facility] MCHC 33.2 31.5 - 35.5 % [facility] WBC 6.4 4.0 - 9.8 K/uL [facility] MCH 30.7 27.2 - 32.6 pg [facility] HEMATOCRIT 29.5(L) 35.5 - 44.0 % [facility] RDW 14.0 11.5 - 14.5 % [facility] RBC 3.19(L) 3.90 - 4.90 M/uL [facility] MCV 92.5 82.0 - 99.0 fL [facility] RDW-STDEV 47.1 37.1 - 48.7 fL [facility] LYMPHOCYTE ABSOLUTE 1.75 0.70 - 4.50 K/uL [facility] BASOPHILS 1 0 - 2 % [facility] BASOPHILS ABSOLUTE 0.05 0.00 - 0.20 K/uL [facility] MONOCYTES 10 3 - 13 % [facility] MONOCYTE ABSOLUTE 0.62 0.10 - 1.30 K/uL [facility] NEUTROPHILS 60 45 - 70 % [facility] NEUTROPHIL ABSOLUTE 3.86 1.90 - 7.00 K/uL [facility] EOSINOPHILS 2 0 - 7 % [facility] EOSINOPHIL ABSOLUTE 0.12 0.00 - 0.70 K/uL [facility] LYMPHOCYTES 27 16 - 45 % [facility] MPV 13.2(H) 9.3 - 12.4 fL [facility] PLATELETS 114(L) 140 - 350 K/uL [facility] Comment: Platelets verified by smear review. Blood specimen (specimen) 05/24/2008 4:54 AM CDT 05/24/2008 7:30 AM CDT Viktoriya Gavin MD HEMATOLOGY ORDERABLES Edit ed INTERFACE SYSTEM Refer to clinic/hospital department [facility] CLIA# [id number] [address] [place] [address] * (ABNORMAL) BASIC METABOLIC PANEL (05/24/2008 4:54 AM CDT) CHLORIDE 101 96 - 108 mmol/L [facility] GLUCOSE 84 65 - 99 mg/dL [facility] SODIUM 138 135 - 145 mmol/L [facility] CALCIUM 8.4(L) 8.6 - 10.2 mg/dL [facility] CO2 26 22 - 30 mmol/L [facility] CREATININE 0.60 0.51 - 0.95 mg/dL [facility] POTASSIUM 3.4(L) 3.5 - 4.9 mmol/L [facility] BUN 22(H) 6 - 20 mg/dL [facility] GFR, >60 >=60 mL/min/1. 7 sq meter [facility] GFR >60 >=60 mL/min/1. 7 sq meter [facility] Comment: Modification of Diet in Renal Disease (MDRD) study formula. Estimated GFR rate interpretative information for both Americans and non- Americans is available on the [facility] Intranet at: [email or web address] Select: Lab Policies and Procedures Select: Reference Ranges - GFR Blood specimen (specimen) 05/24/2008 4:54 AM CDT 05/24/2008 7:30 AM CDT Viktoriya Gavin MD CHEMISTRY ORDERABLES Edite d Performing Organization Address [facility] Phone Number INTERFACE SYSTEM Refer to clinic/hospital department [facility] CLIA# [id number] [address] [place] [address] * MAGNESIUM LEVEL (05/24/2008 4:54 AM CDT) MAGNESIUM 2.2 1.5 - 2.5 mg/dL [facility] Blood specimen (specimen) 05/24/2008 4:54 AM CDT 05/24/2008 7:30 AM CDT Viktoriya Gavin MD CHEMISTRY ORDERABLES Final Result Performing Organization Address [facility] Phone Number INTERFACE SYSTEM Refer to clinic/hospital department [facility] CLIA# [id number] [address] [place] [address] * (ABNORMAL) POC GLUCOSE (05/24/2008 1:17 AM CDT) GLUCOSE POC 108(H) 65 - 99 mg/dL [facility] Venous blood specimen (specimen) 05/24/2008 1:17 AM CDT 05/24/2008 1:17 AM CDT Brijesh Bird MD POINT OF CARE TESTING Fin al Result Performing Organization Address [facility] Phone Number INTERFACE SYSTEM Refer to clinic/hospital department [facility] CLIA# [id number] [address] [place] [address] * (ABNORMAL) POC GLUCOSE (05/23/2008 8:51 PM CDT) GLUCOSE POC 145(H) 65 - 99 mg/dL [facility] COMMENT, GLU POC Notified RN [facility] Venous blood specimen (specimen) 05/23/2008 8:51 PM CDT 05/23/2008 8:51 PM CDT Brijesh Bird MD POINT OF CARE TESTING Fin al Result Performing Organization Address City/[facility] de Phone Number INTERFACE SYSTEM Refer to clinic/hospital department [facility] CLIA# [id number] [address] [place] [address] * (ABNORMAL) POC GLUCOSE (05/23/2008 4:50 PM CDT) GLUCOSE POC 121(H) 65 - 99 mg/dL [facility] Venous blood specimen (specimen) 05/23/2008 4:50 PM CDT 05/23/2008 4:50 PM CDT Brijesh Bird MD POINT OF CARE TESTING Fin al Result Performing Organization Address [facility] de Phone Number INTERFACE SYSTEM Refer to clinic/hospital department [facility] CLIA# [id number] [address] [place] [place] [address] * (ABNORMAL) POC GLUCOSE (05/23/2008 10:06 AM CDT) GLUCOSE POC 121(H) 65 - 99 mg/dL [facility] Venous blood specimen (specimen) 05/23/2008 10:06 AM CDT 05/23/2008 10:06 AM CDT Brijesh Bird MD POINT OF CARE TESTING Fin al Result Performing Organization Address [facility] de Phone Number INTERFACE SYSTEM Refer to clinic/hospital department [facility] CLIA# [id number] [address] [place] [address] * (ABNORMAL) POC GLUCOSE (05/23/2008 5:44 AM CDT) COMMENT, GLU POC Notified RN [facility] GLUCOSE POC 122(H) 65 - 99 mg/dL [facility] Venous blood specimen (specimen) 05/23/2008 5:44 AM CDT 05/23/2008 5:44 AM CDT Brijesh Bird MD POINT OF CARE TESTING Fin al Result Performing Organization Address [facility] de Phone Number INTERFACE SYSTEM Refer to clinic/hospital department [facility] CLIA# [id number] [address] [place] [address] * XR CHEST PA AND LATERAL (05/23/2008 5:20 AM CDT) Anatomical Region Laterality Modality Chest Other 05/23/2008 5:20 AM CDT Narrative 05/23/2008 8:32 AM CDT [facility] [address] [place], [place] [address] Admit Date: 05/19/2008 LENIN ABEBE A Sex: F Admit Prov: BRIJESH BIRD Date: 1945 Primary Care Prov: CMRN: [id number] Room: [address] [place] [address] SSN: [id number] IMAGING SERVICES Ordering Prov: N/A Accession Number: [id number] Interpretation EXAM: CHEST X-RAY, PA AND LATERAL, [...] DKT Procedure Note Brijesh Dover - 05/23/2008 [facility] [address] [place], [place] [address] Admit Date: 05/19/2008 ABEBE [place]UN[place]INGH[place] Sex: F Admit Prov: BRIJESH BIRD Date: 1945 Primary Care Prov: CMRN: [id number] Room: [address] [place] [address] SSN: [id number] IMAGING SERVICES Ordering Prov: N/A Interpretation EXAM: [...] 14.5 % [facility] WBC 7.6 4.0 - 9.8 K/uL [facility] MCH 30.5 27.2 - 32.6 pg [facility] MPV 13.0(H) 9.3 - 12.4 fL [facility] HEMATOCRIT 31.9(L) 35.5 - 44.0 % [facility] RDW-STDEV 48.2 37.1 - 48.7 fL [facility] RBC 3.44(L) 3.90 - 4.90 M/uL [facility] MCHC 32.9 31.5 - 35.5 % [facility] MCV 92.7 82.0 - 99.0 fL [facility] PLATELETS 109(L) 140 - 350 K/uL [facility] HEMOGLOBIN 10.5(L) 11.8 - 14.8 g/dL [facility] LYMPHOCYTES 21 16 - 45 % [facility] LYMPHOCYTE ABSOLUTE 1.62 0.70 - 4.50 K/uL [facility] BASOPHILS 1 0 - 2 % [facility] BASOPHILS ABSOLUTE 0.05 0.00 - 0.20 K/uL [facility] MONOCYTES 10 3 - 13 % [facility] MONOCYTE ABSOLUTE 0.78 0.10 - 1.30 K/uL [facility] NEUTROPHILS 66 45 - 70 % [facility] NEUTROPHIL ABSOLUTE 5.06 1.90 - 7.00 K/uL [facility] EOSINOPHILS 1 0 - 7 % [facility] EOSINOPHIL ABSOLUTE 0.11 0.00 - 0.70 K/uL [facility] Blood specimen (specimen) 05/23/2008 5:00 AM CDT 05/23/2008 6:12 AM CDT us Radha CONTI HEMATOLOGY ORDERABLES Edited Performing Organization Address [facility] de Phone Number INTERFACE SYSTEM Refer to clinic/hospital department [facility] CLIA# [id number] [address] [place] [address] * MAGNESIUM LEVEL (05/23/2008 5:00 AM CDT) MAGNESIUM 2.1 1.5 - 2.5 mg/dL [facility] Blood specimen (specimen) 05/23/2008 5:00 AM CDT 05/23/2008 6:10 AM CDT Radha CONTI CHEMISTRY ORDERABLES Final Resu lt Performing Organization Address [facility] de Phone Number INTERFACE SYSTEM Refer to clinic/hospital department [facility] CLIA# [id number] [address] [place] [address] * (ABNORMAL) BASIC METABOLIC PANEL (05/23/2008 5:00 AM CDT) GLUCOSE 107(H) 65 - 99 mg/dL [facility] SODIUM 136 135 - 145 mmol/L [facility] CALCIUM 8.7 8.6 - 10.2 mg/dL [facility] CO2 27 22 - 30 mmol/L [facility] CREATININE 0.73 0.51 - 0.95 mg/dL [facility] POTASSIUM 3.6 3.5 - 4.9 mmol/L [facility] BUN 26(H) 6 - 20 mg/dL [facility] CHLORIDE 102 96 - 108 mmol/L [facility] GFR, >60 >=60 mL/min/1. 7 sq meter [facility] GFR >60 >=60 mL/min/1. 7 sq meter [facility] Comment: Modification of Diet in Renal Disease (MDRD) study formula. Estimated GFR rate interpretative information for both Americans and non- Americans is available on the [facility] Intranet at: [email or web address] Select: Lab Policies and Procedures Select: Reference Ranges - GFR Blood specimen (specimen) 05/23/2008 5:00 AM CDT 05/23/2008 6:10 AM CDT Radha CONTI CHEMISTRY ORDERABLES Edited Performing Organization Address [facility] Phone Number INTERFACE SYSTEM Refer to clinic/hospital department [facility] CLIA# [id number] [address] [place] [address] * (ABNORMAL) POC GLUCOSE (05/23/2008 12:46 AM CDT) GLUCOSE POC 141(H) 65 - 99 mg/dL [facility] COMMENT, GLU POC Notified GISELL [facility] Venous blood specimen (specimen) 05/23/2008 12:46 AM CDT 05/23/2008 12:46 AM CDT Brijesh Bird MD POINT OF CARE TESTING Fin al Result Performing Organization Address [facility] Phone Number INTERFACE SYSTEM Refer to clinic/hospital department [facility] CLIA# [id number] [address] [place] [address] * (ABNORMAL) POC GLUCOSE (05/22/2008 9:09 PM CDT) GLUCOSE POC 178(H) 65 - 99 mg/dL [facility] COMMENT, GLU POC Notified RN [facility] Venous blood specimen (specimen) 05/22/2008 9:09 PM CDT 05/22/2008 9:09 PM CDT Brijesh Bird MD POINT OF CARE TESTING Fin al Result Performing Organization Address [facility] Phone Number INTERFACE SYSTEM Refer to clinic/hospital department [facility] CLIA# [id number] [address] [place] [address] * (ABNORMAL) POC GLUCOSE (05/22/2008 5:10 PM CDT) GLUCOSE POC 129(H) 65 - 99 mg/dL [facility] Venous blood specimen (specimen) 05/22/2008 5:10 PM CDT 05/22/2008 5:10 PM CDT us Brijesh Bird MD POINT OF CARE TESTING Fin al Result Performing Organization Address [facility] Phone Number INTERFACE SYSTEM Refer to clinic/hospital department [facility] CLIA# [id number] [address] [place] [address] * (ABNORMAL) POC GLUCOSE (05/22/2008 1:54 PM CDT) GLUCOSE POC 120(H) 65 - 99 mg/dL [facility] Venous blood specimen (specimen) 05/22/2008 1:54 PM CDT 05/22/2008 1:54 PM CDT us Brijesh Bird MD POINT OF CARE TESTING Fin al Result Performing Organization Address [facility] de Phone Number INTERFACE SYSTEM Refer to clinic/hospital department [facility] CLIA# [id number] [address] [place] [address] * (ABNORMAL) POC GLUCOSE (05/22/2008 11:20 AM CDT) GLUCOSE POC 120(H) 65 - 99 mg/dL [facility] Venous blood specimen (specimen) 05/22/2008 11:20 AM CDT 05/22/2008 11:20 AM CDT us Brijesh Bird MD POINT OF CARE TESTING Fin al Result Performing Organization Address [facility] de Phone Number INTERFACE SYSTEM Refer to clinic/hospital department [facility] CLIA# [id number] [address] [place] [address] * (ABNORMAL) POC GLUCOSE (05/22/2008 8:41 AM CDT) GLUCOSE POC 112(H) 65 - 99 mg/dL [facility] Venous blood specimen (specimen) 05/22/2008 8:41 AM CDT 05/22/2008 8:41 AM CDT us Brijesh Bird MD POINT OF CARE TESTING Fin al Result Performing Organization Address [facility] de Phone Number INTERFACE SYSTEM Refer to clinic/hospital department [facility] CLIA# [id number] [address] [place] [address] * XR CHEST PA OR AP (05/22/2008 8:40 AM CDT) Anatomical Region Laterality Modality Chest Other 05/22/2008 8:40 AM CDT Narrative 05/22/2008 9:36 AM CDT [facility] [address] [place], [place] [address] Admit Date: 05/19/2008 ABEBE CUNNINGHAM Sex: F Admit Prov: BRIJESH BIRD Date: 1945 Primary Care Prov: CMRN: [id number] Room: [address] [place] [address] SSN: [id number] IMAGING SERVICES Ordering Prov: N/A Accession Number: [id number] Interpretation PORTABLE SEMIERECT CHEST OF 0850 HOURS, 05/22/2008 History: Respiratory distress. Findings: All the tubes and catheters have been removed. There is no pneumothorax. The heart size is mildly enlarged. Opinion: Well-aerated lungs after tube removal. . Dictated by: KANDACE MTZ 05/22/2008 09:09 Electronically signed by: KANDACE MTZ 05/22/2008 09:35 Transcribed: 05/22/2008 09:13 SMM Procedure Note Kandace Mtz MD - 05/22/2008 [facility] [address] [place], [place] [address] Admit Date: 05/19/2008 ABEBE CUNNINGHAM Sex: F Admit Prov: BRIJESH BIRD Date: 1945 Primary Care Prov: CMRN: [id number] Room: [address] [place] [address] SSN: [id number] IMAGING SERVICES Ordering Prov: N/A Interpretation PORTABLE [...] 99 mg/dL [facility] Venous blood specimen (specimen) 05/22/2008 6:16 AM CDT 05/22/2008 6:16 AM CDT us Brijesh Bird MD POINT OF CARE TESTING Fin al Result INTERFACE SYSTEM Refer to clinic/hospital department [facility] CLIA# [id number] [address] [place] [address] * (ABNORMAL) BASIC METABOLIC PANEL (05/22/2008 4:40 AM CDT) CHLORIDE 109(H) 96 - 108 mmol/L [facility] GLUCOSE 103(H) 65 - 99 mg/dL [facility] SODIUM 141 135 - 145 mmol/L [facility] CALCIUM 8.6 8.6 - 10.2 mg/dL [facility] CO2 26 22 - 30 mmol/L [facility] CREATININE 0.62 0.51 - 0.95 mg/dL [facility] POTASSIUM 4.1 3.5 - 4.9 mmol/L [facility] BUN 27(H) 6 - 20 mg/dL [facility] GFR, >60 >=60 mL/min/1. 7 sq meter [facility] GFR >60 >=60 mL/min/1. 7 sq meter [facility] Comment: Modification of Diet in Renal Disease (MDRD) study formula. Estimated GFR rate interpretative information for both Americans and non- Americans is available on the [facility] Intranet at: [email or web address] Select: Lab Policies and Procedures Select: Reference Ranges - GFR Blood specimen (specimen) 05/22/2008 4:40 AM CDT 05/22/2008 4:49 AM CDT Ary Fragoso NP CHEMISTRY ORDERABLES Edited INTERFACE SYSTEM Refer to clinic/hospital department [facility] CLIA# [id number] [address] [place] [address] * (ABNORMAL) CBC WITH DIFFERENTIAL (05/22/2008 4:40 AM CDT) MCV 92.4 82.0 - 99.0 fL [facility] HEMOGLOBIN 10.8(L) 11.8 - 14.8 g/dL [facility] RDW 14.6(H) 11.5 - 14.5 % [facility] WBC 11.2(H) 4.0 - 9.8 K/uL [facility] MCH 30.6 27.2 - 32.6 pg [facility] HEMATOCRIT 32.6(L) 35.5 - 44.0 % [facility] RDW-STDEV 49.3(H) 37.1 - 48.7 fL [facility] RBC 3.53(L) 3.90 - 4.90 M/uL [facility] MCHC 33.1 31.5 - 35.5 % [facility] EOSINOPHILS 0 0 - 7 % [facility] EOSINOPHIL ABSOLUTE 0.01 0.00 - 0.70 K/uL [facility] LYMPHOCYTES 14(L) 16 - 45 % [facility] LYMPHOCYTE ABSOLUTE 1.57 0.70 - 4.50 K/uL [facility] BASOPHILS 0 0 - 2 % [facility] BASOPHILS ABSOLUTE 0.02 0.00 - 0.20 K/uL [facility] MONOCYTES 12 3 - 13 % [facility] MONOCYTE ABSOLUTE 1.33(H) 0.10 - 1.30 K/uL [facility] NEUTROPHILS 74(H) 45 - 70 % [facility] NEUTROPHIL ABSOLUTE 8.27(H) 1.90 - 7.00 K/uL [facility] PLATELETS 95(L) 140 - 350 K/uL [facility] Comment: Platelets verified by smear review. MPV 12.9(H) 9.3 - 12.4 fL [facility] Blood specimen (specimen) 05/22/2008 4:40 AM CDT 05/22/2008 4:49 AM CDT us Ary Fragoso NP HEMATOLOGY ORDERABLES Edited Performing Organization Address [facility] de Phone Number INTERFACE SYSTEM Refer to clinic/hospital department [facility] CLIA# [id number] [address] [place] [address] * (ABNORMAL) POC GLUCOSE (05/22/2008 4:10 AM CDT) GLUCOSE POC 116(H) 65 - 99 mg/dL [facility] Venous blood specimen (specimen) 05/22/2008 4:10 AM CDT 05/22/2008 4:10 AM CDT Brijesh Bird MD POINT OF CARE TESTING Fin al Result Performing Organization Address [facility] Phone Number INTERFACE SYSTEM Refer to clinic/hospital department [facility] CLIA# [id number] [address] [place] [address] * (ABNORMAL) POC GLUCOSE (05/22/2008 3:18 AM CDT) GLUCOSE POC 115(H) 65 - 99 mg/dL [facility] Venous blood specimen (specimen) 05/22/2008 3:18 AM CDT 05/22/2008 3:18 AM CDT Brijesh Bird MD POINT OF CARE TESTING Fin al Result Performing Organization Address [facility] [place] de Phone Number INTERFACE SYSTEM Refer to clinic/hospital department [facility] CLIA# [id number] [address] [place] [address] * (ABNORMAL) POC GLUCOSE (05/22/2008 2:04 AM CDT) GLUCOSE POC 136(H) 65 - 99 mg/dL [facility] Venous blood specimen (specimen) 05/22/2008 2:04 AM CDT 05/22/2008 2:04 AM CDT us Brijesh Bird MD POINT OF CARE TESTING Fin al Result Performing Organization Address [facility] Phone Number INTERFACE SYSTEM Refer to clinic/hospital department [facility] CLIA# [id number] [address] [place] [address] * (ABNORMAL) POC GLUCOSE (05/22/2008 1:01 AM CDT) GLUCOSE POC 109(H) 65 - 99 mg/dL [facility] Venous blood specimen (specimen) 05/22/2008 1:01 AM CDT 05/22/2008 1:01 AM CDT us Brijesh Bird MD POINT OF CARE TESTING Fin al Result Performing Organization Address [facility] Phone Number INTERFACE SYSTEM Refer to clinic/hospital department [facility] CLIA# [id number] [address] [place] [address] * POC GLUCOSE (05/22/2008 12:02 AM CDT) GLUCOSE POC 85 65 - 99 mg/dL [facility] Venous blood specimen (specimen) 05/22/2008 12:02 AM CDT 05/22/2008 12:02 AM CDT us Brijesh Bird MD POINT OF CARE TESTING Fin al Result Performing Organization Address [facility] de Phone Number INTERFACE SYSTEM Refer to clinic/hospital department [facility] CLIA# [id number] [address] [place] [address] * (ABNORMAL) POC GLUCOSE (05/21/2008 11:07 PM CDT) GLUCOSE POC 105(H) 65 - 99 mg/dL [facility] Venous blood specimen (specimen) 05/21/2008 11:07 PM CDT 05/21/2008 11:07 PM CDT us Brijesh Bird MD POINT OF CARE TESTING Fin al Result Performing Organization Address [facility] de Phone Number INTERFACE SYSTEM Refer to clinic/hospital department [facility] CLIA# [id number] [address] [place] [address] * POC GLUCOSE (05/21/2008 10:02 PM CDT) GLUCOSE POC 99 65 - 99 mg/dL [facility] Venous blood specimen (specimen) 05/21/2008 10:02 PM CDT 05/21/2008 10:02 PM CDT us Brijesh Bird MD POINT OF CARE TESTING Fin al Result Performing Organization Address [facility] de Phone Number INTERFACE SYSTEM Refer to clinic/hospital department [facility] CLIA# [id number] [address] [place] [address] * POC GLUCOSE (05/21/2008 9:14 PM CDT) GLUCOSE POC 93 65 - 99 mg/dL [facility] Venous blood specimen (specimen) 05/21/2008 9:14 PM CDT 05/21/2008 9:14 PM CDT us Brijesh Bird MD POINT OF CARE TESTING Fin al Result Performing Organization Address [facility] de Phone Number INTERFACE SYSTEM Refer to clinic/hospital department [facility] CLIA# [id number] [address] [place] [address] * (ABNORMAL) POC GLUCOSE (05/21/2008 8:19 PM CDT) GLUCOSE POC 112(H) 65 - 99 mg/dL [facility] Venous blood specimen (specimen) 05/21/2008 8:19 PM CDT 05/21/2008 8:19 PM CDT Brijesh Bird MD POINT OF CARE TESTING Fin al Result Performing Organization Address [facility] de Phone Number INTERFACE SYSTEM Refer to clinic/hospital department [facility] CLIA# [id number] [address] [place] [address] * (ABNORMAL) POC GLUCOSE (05/21/2008 4:28 PM CDT) GLUCOSE POC 104(H) 65 - 99 mg/dL [facility] Venous blood specimen (specimen) 05/21/2008 4:28 PM CDT 05/21/2008 4:28 PM CDT Brijesh Bird MD POINT OF CARE TESTING Fin al Result Performing Organization Address [facility] de Phone Number INTERFACE SYSTEM Refer to clinic/hospital department [facility] CLIA# [id number] [address] [place] [address] * (ABNORMAL) POC GLUCOSE (05/21/2008 3:04 PM CDT) GLUCOSE POC 109(H) 65 - 99 mg/dL [facility] Venous blood specimen (specimen) 05/21/2008 3:04 PM CDT 05/21/2008 3:04 PM CDT Brijesh Bird MD POINT OF CARE TESTING Fin al Result Performing Organization Address [facility] de Phone Number INTERFACE SYSTEM Refer to clinic/hospital department [facility] CLIA# [id number] [address] [place] [address] * (ABNORMAL) POC GLUCOSE (05/21/2008 1:48 PM CDT) GLUCOSE POC 124(H) 65 - 99 mg/dL [facility] Venous blood specimen (specimen) 05/21/2008 1:48 PM CDT 05/21/2008 1:48 PM CDT Brijesh Bird MD POINT OF CARE TESTING Fin al Result Performing Organization Address [facility] de Phone Number INTERFACE SYSTEM Refer to clinic/hospital department [facility] CLIA# [id number] [address] [place] [address] * (ABNORMAL) BLOOD GAS ARTERIAL (05/21/2008 1:45 PM CDT) O2 CONC ARTERIAL 35% [facility] PCO2 ARTERIAL 42 35 - 48 mm Hg [facility] FO2HB ABG 95 94 - 98 % [facility] BASE EXCESS ABG -0.8 -2.0 - 3.0 mmol/L [facility] PO2 ARTERIAL 79(L) 83 - 108 mm Hg [facility] PH ARTERIAL 7.37 7.35 - 7.45 [facility] SO2 ABG 96 95 - 99 % [facility] HCO3 ARTERIAL 24 22 - 26 mmol/L [facility] Arterial blood specimen (specimen) 05/21/2008 1:45 PM CDT 05/21/2008 1:52 PM CDT us Ary Fragoso BLOCKMASON ABG ORDERABLES Final Result Performing Organization Address [facility] de Phone Number INTERFACE SYSTEM Refer to clinic/hospital department [facility] CLIA# [id number] [address] [place] [address] * (ABNORMAL) POC GLUCOSE (05/21/2008 1:10 PM CDT) GLUCOSE POC 123(H) 65 - 99 mg/dL [facility] Venous blood specimen (specimen) 05/21/2008 1:10 PM CDT 05/21/2008 1:10 PM CDT Brijesh Bird MD POINT OF CARE TESTING Fin al Result Performing Organization Address [facility] de Phone Number INTERFACE SYSTEM Refer to clinic/hospital department [facility] CLIA# [id number] [address] [place] [address] * (ABNORMAL) CVR ONLY, CKMB/CK (05/21/2008 12:30 PM CDT) CKMB 80.9(AA) <=3.8 ng/mL [facility] Comment: Persistent abnormal result CKMB INTERP See Below [facility] Comment: Elevated CKMB,consistent with Myocardial Injury CK 1,451(H) 10 - 145 U/L [facility] CARDIAC RELATIVE INDEX 5.6(H) <=4.0 [facility] Blood specimen (specimen) 05/21/2008 12:30 PM CDT 05/21/2008 12:32 PM CDT Viktoriya Gavin MD CHEMISTRY ORDERABLES Edite d Performing Organization Address [facility] de Phone Number INTERFACE SYSTEM Refer to clinic/hospital department [facility] CLIA# [id number] [address] [place] [address] * (ABNORMAL) POC GLUCOSE (05/21/2008 12:28 PM CDT) GLUCOSE POC 106(H) 65 - 99 mg/dL [facility] Venous blood specimen (specimen) 05/21/2008 12:28 PM CDT 05/21/2008 12:28 PM CDT Brijesh Bird MD POINT OF CARE TESTING Fin al Result Performing Organization Address [facility] Co de Phone Number INTERFACE SYSTEM Refer to clinic/hospital department [facility] CLIA# [id number] [address] [place] [address] * (ABNORMAL) POC GLUCOSE (05/21/2008 11:16 AM CDT) GLUCOSE POC 137(H) 65 - 99 mg/dL [facility] Venous blood specimen (specimen) 05/21/2008 11:16 AM CDT 05/21/2008 11:16 AM CDT Brijesh Bird MD POINT OF CARE TESTING Fin al Result Performing Organization Address [facility] de Phone Number INTERFACE SYSTEM Refer to clinic/hospital department [facility] CLIA# [id number] [address] [place] [address] * (ABNORMAL) POC RT, BLOOD GASES (05/21/2008 11:12 AM CDT) PO2 ARTERIAL 57(L) 83 - 108 mm Hg [facility] SODIUM POC 137 135 - 145 mmol/L [facility] PH ARTERIAL 7.38 7.35 - 7.45 [facility] BASE EXCESS ABG -1.3 -2.0 - 3.0 mmol/L [facility] HEMATOCRIT POC 35.0(L) 35.5 - 44.0 % [facility] O2 SAT EST ABG POC 89(L) 95 - 99 % [facility] POTASSIUM POC 4.3 3.5 - 4.9 mmol/L [facility] PCO2 ARTERIAL 40 35 - 48 mm Hg [facility] HCO3 ARTERIAL 24 22 - 26 mmol/L [facility] COMMENT, GASES POC RN NOTIFIED [facility] PATIENT'S TEMPERATURE 37.0 Degree C [facility] CALICUM IONIZED, WHOLE BLOOD 4.77 4.76 - 5.16 mg/dL [facility] Blood specimen (specimen) 05/21/2008 11:12 AM CDT 05/21/2008 11:12 AM CDT us Brijesh Bird MD CHEMISTRY ORDERABLES Rosenda l Result Performing Organization Address City/[facility] de Phone Number INTERFACE SYSTEM Refer to clinic/hospital department [facility] CLIA# [id number] [address] [place] [address] * (ABNORMAL) POC GLUCOSE (05/21/2008 10:18 AM CDT) GLUCOSE POC 148(H) 65 - 99 mg/dL [facility] Venous blood specimen (specimen) 05/21/2008 10:18 AM CDT 05/21/2008 10:18 AM CDT us Brijesh Bird MD POINT OF CARE TESTING Fin al Result Performing Organization Address [facility] de Phone Number INTERFACE SYSTEM Refer to clinic/hospital department [facility] CLIA# [id number] [address] [place] [place] [address] * (ABNORMAL) POC GLUCOSE (05/21/2008 9:09 AM CDT) GLUCOSE POC 143(H) 65 - 99 mg/dL [facility] Venous blood specimen (specimen) 05/21/2008 9:09 AM CDT 05/21/2008 9:09 AM CDT us Brijesh Bird MD POINT OF CARE TESTING Fin al Result Performing Organization Address City/[facility] de Phone Number INTERFACE SYSTEM Refer to clinic/hospital department [facility] CLIA# [id number] [address] [place] [address] * (ABNORMAL) POC GLUCOSE (05/21/2008 8:24 AM CDT) GLUCOSE POC 145(H) 65 - 99 mg/dL [facility] Venous blood specimen (specimen) 05/21/2008 8:24 AM CDT 05/21/2008 8:24 AM CDT us Brijesh Bird MD POINT OF CARE TESTING Fin al Result Performing Organization Address [facility] de Phone Number INTERFACE SYSTEM Refer to clinic/hospital department [facility] CLIA# [id number] [address] [place] [address] * (ABNORMAL) BLOOD GAS ARTERIAL (05/21/2008 8:00 AM CDT) O2 CONC ARTERIAL 55% [facility] BASE EXCESS ABG -2.5(L) -2.0 - 3.0 mmol/L [facility] PO2 ARTERIAL 69(L) 83 - 108 mm Hg [facility] PH ARTERIAL 7.33(L) 7.35 - 7.45 [facility] O2 SAT EST ARTERIAL 92(L) 94 - 98 % [facility] HCO3 ARTERIAL 23 22 - 26 mmol/L [facility] PCO2 ARTERIAL 46 35 - 48 mm Hg [facility] Arterial blood specimen (specimen) 05/21/2008 8:00 AM CDT 05/21/2008 8:13 AM CDT us Viktoriya Gavin MD ABG ORDERABLES Final Resu lt Performing Organization Address [facility] de Phone Number INTERFACE SYSTEM Refer to clinic/hospital department [facility] CLIA# [id number] [address] [place] [address] * (ABNORMAL) POC RT, BLOOD GASES (05/21/2008 6:30 AM CDT) PCO2 ARTERIAL 44 35 - 48 mm Hg [facility] FIO2 55 [facility] HCO3 ARTERIAL 21(L) 22 - 26 mmol/L [facility] PATIENT'S TEMPERATURE 37.0 Degree C [facility] CALICUM IONIZED, WHOLE BLOOD 4.77 4.76 - 5.16 mg/dL [facility] PEEP POC 5 [facility] PO2 ARTERIAL 63(L) 83 - 108 mm Hg [facility] SODIUM POC 133(L) 135 - 145 mmol/L [facility] OXYGEN MODE SIMV/PS [facility] PH ARTERIAL 7.29(L) 7.35 - 7.45 [facility] BASE EXCESS ABG -5.2(L) -2.0 - 3.0 mmol/L [facility] COMMENT, GASES POC RN/MD NOTIFIED [facility] HEMATOCRIT POC 37.0 35.5 - 44.0 % [facility] O2 SAT EST ABG POC 89(L) 95 - 99 % [facility] POTASSIUM POC 4.6 3.5 - 4.9 mmol/L [facility] Blood specimen (specimen) 05/21/2008 6:30 AM CDT 05/21/2008 6:30 AM CDT us Brijesh Bird MD CHEMISTRY ORDERABLES Rosenda chavez Result INTERFACE SYSTEM Refer to clinic/hospital department [facility] CLIA# [id number] [address] [place] [address] * (ABNORMAL) POC GLUCOSE (05/21/2008 6:08 AM CDT) GLUCOSE POC 133(H) 65 - 99 mg/dL [facility] Venous blood specimen (specimen) 05/21/2008 6:08 AM CDT 05/21/2008 6:08 AM CDT Brijesh Bird MD POINT OF CARE TESTING Fin al Result INTERFACE SYSTEM Refer to clinic/hospital department [facility] CLIA# [id number] [address] [place], [place] [address] * (ABNORMAL) POC RT, BLOOD GASES (05/21/2008 5:42 AM CDT) FIO2 55 [facility] HCO3 ARTERIAL 21(L) 22 - 26 mmol/L [facility] PATIENT'S TEMPERATURE 37.0 Degree C [facility] CALICUM IONIZED, WHOLE BLOOD 4.73(L) 4.76 - 5.16 mg/dL [facility] PH ARTERIAL 7.26(L) 7.35 - 7.45 [facility] SODIUM POC 134(L) 135 - 145 mmol/L [facility] COMMENT, GASES POC RN/MD NOTIFIED [facility] PCO2 ARTERIAL 47 35 - 48 mm Hg [facility] BASE EXCESS ABG -6.0(L) -2.0 - 3.0 mmol/L [facility] HEMATOCRIT POC 38.0 35.5 - 44.0 % [facility] PO2 ARTERIAL 64(L) 83 - 108 mm Hg [facility] O2 SAT EST ABG POC 88(L) 95 - 99 % [facility] POTASSIUM POC 4.8 3.5 - 4.9 mmol/L [facility] Blood specimen (specimen) 05/21/2008 5:42 AM CDT 05/21/2008 5:42 AM CDT Brijesh Bird MD CHEMISTRY ORDERABLES Rosenda chavez Result INTERFACE SYSTEM Refer to clinic/hospital department [facility] CLIA# [id number] [address] [place] [address] * XR CHEST PA OR AP (05/21/2008 5:20 AM CDT) Anatomical Region Laterality Modality Chest Other 05/21/2008 5:20 AM CDT Narrative 05/21/2008 9:31 AM CDT [facility] [address] [place], [place] [address] Admit Date: 05/19/2008 A[place]BE [place] Sex: F Admit Prov: BRIJESH BIRD Date: 1945 Primary Care Prov: CMRN: [id number] Room: [address] [place] [address] SSN: [id number] IMAGING SERVICES Ordering Prov: N/A Accession Number: [id number] Interpretation CHEST SINGLE VIEW 05/21/08 AT 0530 [...] Procedure Note Jocelyn Rasmussen MD - 05/21/2008 [facility] [address] [place], [place] [address] Admit Date: 05/19/2008 ABEBE [place] Sex: F Admit Prov: BRIJESH BIRD Date: 1945 Primary Care Prov: CMRN: [id number] Room: [address] [place] [address] SSN: [id number] IMAGING SERVICES Ordering Prov: N/A Interpretation CHEST [...] 99 mg/dL [facility] Venous blood specimen (specimen) 05/21/2008 4:11 AM CDT 05/21/2008 4:11 AM CDT us Brijesh Bird MD POINT OF CARE TESTING Fin al Result Performing Organization Address City/[facility] Co de Phone Number INTERFACE SYSTEM Refer to clinic/hospital department [facility] CLIA# [id number] [address] [place] [address] * (ABNORMAL) PT AND APTT (05/21/2008 4:00 AM CDT) INR 1.2(H) 0.9 - 1.1 [facility] Comment: INR Therapeutic Range: Adult: 2.0 - 3.0 for pulmonary embolism or prophylaxis against venous thrombosis or systemic embolization. 2.0 - 3.0 for patients with tissue heart valves. 2.5 - 3.5 for patients with mechanical heart valves or post UT. Pediatric (12 years and under): 1.5 - 3.0 Although the target range in children is not well established, INR values of 1.5 - 3.0 are recommended for most patients. Higher values have been used in children with prosthetic cardiac valves and hereditary clotting disorders. (<3 days) therapeutic ranges have not been established. PROTIME 14.9 12.7 - 15.1 Seconds [facility] PTT 27.0 24.4 - 36.4 Seconds [facility] Comment: PTT Therapeutic Range: Heparin Level PTT (seconds) <0.10 units/mL <53 0.10 - 0.30 units/mL 53 - 67 0.30 - 0.70 units/mL* 67 - 95* 0.70 - 1.00 units/mL 95 - 116 *corresponds to therapeutic range for unfractionated heparin Blood specimen (specimen) 05/21/2008 4:00 AM CDT 05/21/2008 4:21 AM CDT us Viktoriya Gavin MD HEMATOLOGY ORDERABLES Edit ed Performing Organization Address City/[facility]/ZIP Co de Phone Number INTERFACE SYSTEM Refer to clinic/hospital department [facility] CLIA# [id number] [address] [place] [address] * (ABNORMAL) COMPREHENSIVE METABOLIC PANEL (05/21/2008 4:00 AM CDT) CREATININE 0.82 0.51 - 0.95 mg/dL [facility] ALT 38(H) 0 - 31 U/L [facility] SODIUM 140 135 - 145 mmol/L [facility] ALKALINE PHOSPHATASE 57 35 - 104 U/L [facility] CO2 22 22 - 30 mmol/L [facility] BILIRUBIN TOTAL 0.2 0.2 - 1.0 mg/dL [facility] POTASSIUM 4.7 3.5 - 4.9 mmol/L [facility] TOTAL PROTEIN 5.3(L) 6.3 - 8.6 g/dL [facility] GLUCOSE 138(H) 65 - 99 mg/dL [facility] AST 155(H) 12 - 32 U/L [facility] BUN 21(H) 6 - 20 mg/dL [facility] CALCIUM 8.0(L) 8.6 - 10.2 mg/dL [facility] ALBUMIN 3.3(L) 3.4 - 4.8 g/dL [facility] CHLORIDE 111(H) 96 - 108 mmol/L [facility] GFR, >60 >=60 mL/min/1. 7 sq meter [facility] GFR >60 >=60 mL/min/1. 7 sq meter [facility] Comment: Modification of Diet in Renal Disease (MDRD) study formula. Estimated GFR rate interpretative information for both Americans and non- Americans is available on the [facility] Intranet at: [email or web address] Select: Lab Policies and Procedures Select: Reference Ranges - GFR Blood specimen (specimen) 05/21/2008 4:00 AM CDT 05/21/2008 4:21 AM CDT Viktoriya Gavin MD CHEMISTRY ORDERABLES Edite d Performing Organization Address [facility] Phone Number INTERFACE SYSTEM Refer to clinic/hospital department [facility] CLIA# [id number] [address] [place] [address] * (ABNORMAL) CVR ONLY, CKMB/CK (05/21/2008 4:00 AM CDT) CKMB 137.4(AA) <=3.8 ng/mL [facility] Comment: Persistent abnormal result CKMB INTERP See Below [facility] Comment: Elevated CKMB,consistent with Myocardial Injury CK 1,974(H) 10 - 145 U/L [facility] CARDIAC RELATIVE INDEX 7.0(H) <=4.0 [facility] Blood specimen (specimen) 05/21/2008 4:00 AM CDT 05/21/2008 4:21 AM CDT Viktoriya Gavin MD CHEMISTRY ORDERABLES Edite d Performing Organization Address [facility] Phone Number INTERFACE SYSTEM Refer to clinic/hospital department [facility] CLIA# [id number] [address] [place] [address] * (ABNORMAL) CBC WITH DIFFERENTIAL (05/21/2008 4:00 AM CDT) HEMATOCRIT 38.4 35.5 - 44.0 % [facility] RDW-STDEV 49.7(H) 37.1 - 48.7 fL [facility] RBC 4.16 3.90 - 4.90 M/uL [facility] MCHC 33.3 31.5 - 35.5 % [facility] MCV 92.3 82.0 - 99.0 fL [facility] PLATELETS 129(L) 140 - 350 K/uL [facility] HEMOGLOBIN 12.8 11.8 - 14.8 g/dL [facility] RDW 14.7(H) 11.5 - 14.5 % [facility] WBC 14.4(H) 4.0 - 9.8 K/uL [facility] MCH 30.8 27.2 - 32.6 pg [facility] MPV 13.0(H) 9.3 - 12.4 fL [facility] MONOCYTES 9 3 - 13 % [facility] MONOCYTE ABSOLUTE 1.34(H) 0.10 - 1.30 K/uL [facility] NEUTROPHILS 86(H) 45 - 70 % [facility] NEUTROPHIL ABSOLUTE 12.44(H) 1.90 - 7.00 K/uL [facility] [place] EOSINOPHILS 0 0 - 7 % [facility] EOSINOPHIL ABSOLUTE 0.00 0.00 - 0.70 K/uL [facility] [place] LYMPHOCYTES 4(L) 16 - 45 % [facility] LYMPHOCYTE ABSOLUTE 0.62(L) 0.70 - 4.50 K/uL [facility] [place] BASOPHILS 0 0 - 2 % [facility] [facility] BASOPHILS ABSOLUTE 0.01 0.00 - 0.20 K/uL [facility] Blood specimen (specimen) 05/21/2008 4:00 AM CDT 05/21/2008 4:21 AM CDT us Viktoriya Gavin MD HEMATOLOGY ORDERABLES Edit ed INTERFACE SYSTEM Refer to clinic/hospital department [facility] CLIA# [id number] [address] [place] [address] * (ABNORMAL) POC GLUCOSE (05/21/2008 2:50 AM CDT) GLUCOSE POC 155(H) 65 - 99 mg/dL [facility] Venous blood specimen (specimen) 05/21/2008 2:50 AM CDT 05/21/2008 2:50 AM CDT Brijesh Bird MD POINT OF CARE TESTING Fin al Result Performing Organization Address City/[facility] de Phone Number INTERFACE SYSTEM Refer to clinic/hospital department [facility] CLIA# [id number] [address] [place] [address] * (ABNORMAL) POC GLUCOSE (05/21/2008 1:10 AM CDT) GLUCOSE POC 159(H) 65 - 99 mg/dL [facility] Venous blood specimen (specimen) 05/21/2008 1:10 AM CDT 05/21/2008 1:10 AM CDT Brijesh Bird MD POINT OF CARE TESTING Fin al Result Performing Organization Address [facility] [place] de Phone Number INTERFACE SYSTEM Refer to clinic/hospital department [facility] CLIA# [id number] [address] [place] [address] * (ABNORMAL) POC GLUCOSE (05/20/2008 11:57 PM CDT) GLUCOSE POC 158(H) 65 - 99 mg/dL [facility] Venous blood specimen (specimen) 05/20/2008 11:57 PM CDT 05/20/2008 11:57 PM CDT Brijesh Bird MD POINT OF CARE TESTING Fin al Result Performing Organization Address City/[facility] de Phone Number INTERFACE SYSTEM Refer to clinic/hospital department [facility] CLIA# [id number] [address] [place] [address] * (ABNORMAL) POC GLUCOSE (05/20/2008 10:21 PM CDT) GLUCOSE POC 156(H) 65 - 99 mg/dL [facility] Venous blood specimen (specimen) 05/20/2008 10:21 PM CDT 05/20/2008 10:21 PM CDT Brijesh Bird MD POINT OF CARE TESTING Fin al Result Performing Organization Address [facility] [place] de Phone Number INTERFACE SYSTEM Refer to clinic/hospital department [facility] CLIA# [id number] [address] [place] [address] * (ABNORMAL) POC GLUCOSE (05/20/2008 9:24 PM CDT) GLUCOSE POC 145(H) 65 - 99 mg/dL [facility] Venous blood specimen (specimen) 05/20/2008 9:24 PM CDT 05/20/2008 9:24 PM CDT Brijesh Bird MD POINT OF CARE TESTING Fin al Result Performing Organization Address [facility] [place] de Phone Number INTERFACE SYSTEM Refer to clinic/hospital department [facility] CLIA# [id number] [address] [place] [address] * (ABNORMAL) POC GLUCOSE (05/20/2008 8:11 PM CDT) GLUCOSE POC 148(H) 65 - 99 mg/dL [facility] Venous blood specimen (specimen) 05/20/2008 8:11 PM CDT 05/20/2008 8:11 PM CDT Brijesh Bird MD POINT OF CARE TESTING Fin al Result Performing Organization Address City/[facility] [place] de Phone Number INTERFACE SYSTEM Refer to clinic/hospital department [facility] CLIA# [id number] [address] [place] [address] * (ABNORMAL) CVR ONLY, CKMB/CK (05/20/2008 7:25 PM CDT) [facility] CKMB 166.9(AA) <=3.8 ng/mL [facility] Comment: Persistent abnormal result CKMB INTERP See Below [facility] Comment: Elevated CKMB,consistent with Myocardial Injury CK 2,169(H) 10 - 145 U/L [facility] CARDIAC RELATIVE INDEX 7.7(H) <=4.0 [facility] Blood specimen (specimen) 05/20/2008 7:25 PM CDT 05/20/2008 7:31 PM CDT us Viktoriya Gavin MD CHEMISTRY ORDERABLES Edite d Performing Organization Address [facility] [place] de Phone Number INTERFACE SYSTEM Refer to clinic/hospital department [facility] CLIA# [id number] [address] [place] [address] * (ABNORMAL) POC GLUCOSE (05/20/2008 7:14 PM CDT) [facility] GLUCOSE POC 154(H) 65 - 99 mg/dL [facility] Venous blood specimen (specimen) 05/20/2008 7:14 PM CDT 05/20/2008 7:14 PM CDT us Brijesh Bird MD POINT OF CARE TESTING Fin al Result Performing Organization Address [facility] [place] de Phone Number INTERFACE SYSTEM Refer to clinic/hospital department [facility] CLIA# [id number] [address] [place] [address] * MAGNESIUM LEVEL (05/20/2008 6:40 PM CDT) MAGNESIUM 2.4 1.5 - 2.5 mg/dL [facility] Blood specimen (specimen) 05/20/2008 6:40 PM CDT 05/20/2008 6:48 PM CDT Viktoriya Gavin MD CHEMISTRY ORDERABLES Final Result Performing Organization Address City/[facility] Phone Number INTERFACE SYSTEM Refer to clinic/hospital department [facility] CLIA# [id number] [address] [place] [address] * POTASSIUM LEVEL (05/20/2008 6:40 PM CDT) [facility] Signature POTASSIUM 4.9 3.5 - 4.9 mmol/L [facility] Blood specimen (specimen) 05/20/2008 6:40 PM CDT 05/20/2008 6:48 PM CDT Viktoriya Gavin MD CHEMISTRY ORDERABLES Final Result Performing Organization Address [facility] Phone Number INTERFACE SYSTEM Refer to clinic/hospital department [facility] CLIA# [id number] [address] [place] [address] * (ABNORMAL) POC GLUCOSE (05/20/2008 6:06 PM CDT) [facility] GLUCOSE POC 146(H) 65 - 99 mg/dL [facility] Venous blood specimen (specimen) 05/20/2008 6:06 PM CDT 05/20/2008 6:06 PM CDT Brijesh Bird MD POINT OF CARE TESTING Fin al Result Performing Organization Address City/[facility] de Phone Number INTERFACE SYSTEM Refer to clinic/hospital department [facility] CLIA# [id number] [address] [place] [address] * (ABNORMAL) POC GLUCOSE (05/20/2008 4:46 PM CDT) GLUCOSE POC 143(H) 65 - 99 mg/dL [facility] Venous blood specimen (specimen) 05/20/2008 4:46 PM CDT 05/20/2008 4:46 PM CDT us Brijesh Bird MD POINT OF CARE TESTING Fin al Result Performing Organization Address [facility] Phone Number INTERFACE SYSTEM Refer to clinic/hospital department [facility] CLIA# [id number] [address] [place] [address] * POTASSIUM LEVEL (05/20/2008 4:25 PM CDT) [facility] Signature POTASSIUM 4.5 3.5 - 4.9 mmol/L [facility] Blood specimen (specimen) 05/20/2008 4:25 PM CDT 05/20/2008 4:35 PM CDT Viktoriya Gavin MD CHEMISTRY ORDERABLES Final Result Performing Organization Address [facility] Phone Number INTERFACE SYSTEM Refer to clinic/hospital department [facility] CLIA# [id number] [address] [place] [address] * (ABNORMAL) POC GLUCOSE (05/20/2008 3:51 PM CDT) GLUCOSE POC 146(H) 65 - 99 mg/dL [facility] Venous blood specimen (specimen) 05/20/2008 3:51 PM CDT 05/20/2008 3:51 PM CDT us Brijesh Bird MD POINT OF CARE TESTING Fin al Result Performing Organization Address [facility] de Phone Number INTERFACE SYSTEM Refer to clinic/hospital department [facility] CLIA# [id number] [address] [place] [address] * (ABNORMAL) POC GLUCOSE (05/20/2008 3:16 PM CDT) GLUCOSE POC 149(H) 65 - 99 mg/dL [facility] Venous blood specimen (specimen) 05/20/2008 3:16 PM CDT 05/20/2008 3:16 PM CDT us Brijesh Bird MD POINT OF CARE TESTING Fin al Result INTERFACE SYSTEM Refer to clinic/hospital department [facility] CLIA# [id number] [address] [place] [address] * (ABNORMAL) POC RT, BLOOD GASES (05/20/2008 12:58 PM CDT) BASE EXCESS VENOUS -7.6(L) -2.0 - 3.0 mmol/L [facility] HEMATOCRIT POC 26.0(L) 35.5 - 44.0 % [facility] PEEP POC 5 [facility] O2 SAT EST MVBG POC 61 40 - 70 % [facility] POTASSIUM POC 3.0(L) 3.5 - 4.9 mmol/L [facility] OXYGEN MODE SIMV [facility] PCO2 VENOUS 29(L) 38 - 50 mm Hg [facility] HCO3 MIXED VENOUS 17(L) 22 - 29 mmol/L [facility] COMMENT, GASES POC RN AWARE [facility] FIO2 50 [facility] PH MVBG 7.37 7.32 - 7.43 [facility] PATIENT'S TEMPERATURE 37.0 Degree C [facility] CALICUM IONIZED, WHOLE BLOOD 5.09 4.76 - 5.16 mg/dL [facility] PO2 MVBG 33 25 - 40 mm Hg [facility] TIDAL VOLUME POC 700 [facility] SODIUM POC 145 135 - 145 mmol/L [facility] Blood specimen (specimen) 05/20/2008 12:58 PM CDT 05/20/2008 12:58 PM CDT Brijesh Bird MD CHEMISTRY ORDERABLES Rosenda l Result Performing Organization Address [facility] de Phone Number INTERFACE SYSTEM Refer to clinic/hospital department [facility] CLIA# [id number] [address] [place] [address] * (ABNORMAL) POC GLUCOSE (05/20/2008 12:39 PM CDT) GLUCOSE POC 121(H) 65 - 99 mg/dL [facility] Venous blood specimen (specimen) 05/20/2008 12:39 PM CDT 05/20/2008 12:39 PM CDT Brijesh Bird MD POINT OF CARE TESTING Fin al Result Performing Organization Address [facility] Phone Number INTERFACE SYSTEM Refer to clinic/hospital department [facility] CLIA# [id number] [address] [place] [address] * (ABNORMAL) POC GLUCOSE (05/20/2008 11:22 AM CDT) GLUCOSE POC 120(H) 65 - 99 mg/dL [facility] Venous blood specimen (specimen) 05/20/2008 11:22 AM CDT 05/20/2008 11:22 AM CDT Brijesh Bird MD POINT OF CARE TESTING Fin al Result Performing Organization Address [facility] de Phone Number INTERFACE SYSTEM Refer to clinic/hospital department [facility] CLIA# [id number] [address] [place] [address] * (ABNORMAL) POC RT, BLOOD GASES (05/20/2008 11:21 AM CDT) Pathologist [facility] FIO2 60 [facility] PATIENT'S TEMPERATURE 37.0 Degree C [facility] POTASSIUM POC 4.1 3.5 - 4.9 mmol/L [facility] CALICUM IONIZED, WHOLE BLOOD 4.85 4.76 - 5.16 mg/dL [facility] PEEP POC 5 [facility] PO2 ARTERIAL 109(H) 83 - 108 mm Hg [facility] COMMENT, GASES POC RN AWARE [facility] OXYGEN MODE SIMV/PS [facility] PH ARTERIAL 7.41 7.35 - 7.45 [facility] BASE EXCESS ABG -0.4 -2.0 - 3.0 mmol/L [facility] O2 SAT EST ABG POC 98 95 - 99 % [facility] HEMATOCRIT POC 31.0(L) 35.5 - 44.0 % [facility] SODIUM POC 134(L) 135 - 145 mmol/L [facility] PCO2 ARTERIAL 38 35 - 48 mm Hg [facility] HCO3 ARTERIAL 24 22 - 26 mmol/L [facility] Blood specimen (specimen) 05/20/2008 11:21 AM CDT 05/20/2008 11:21 AM CDT us Brijesh Bird MD CHEMISTRY ORDERABLES Rosenda chavez Result INTERFACE SYSTEM Refer to clinic/hospital department [facility] CLIA# [id number] [address] [place] [address] * (ABNORMAL) PT AND APTT (05/20/2008 11:20 AM CDT) PROTIME 17.3(H) 12.7 - 15.1 Seconds [facility] INR 1.4(H) 0.9 - 1.1 [facility] Comment: INR Therapeutic Range: Adult: 2.0 - 3.0 for pulmonary embolism or prophylaxis against venous thrombosis or systemic embolization. 2.0 - 3.0 for patients with tissue heart valves. 2.5 - 3.5 for patients with mechanical heart valves or post UT. Pediatric (12 years and under): 1.5 - 3.0 Although the target range in children is not well established, INR values of 1.5 - 3.0 are recommended for most patients. Higher values have been used in children with prosthetic cardiac valves and hereditary clotting disorders. (<3 days) therapeutic ranges have not been established. PTT 31.9 24.4 - 36.4 Seconds [facility] Comment: PTT Therapeutic Range: Heparin Level [...] clinic/hospital department [facility] CLIA# [id number] [address] [place] [address] * (ABNORMAL) MAGNESIUM LEVEL (05/20/2008 11:20 AM CDT) MAGNESIUM 2.7(H) 1.5 - 2.5 mg/dL [facility] Blood specimen (specimen) 05/20/2008 11:20 AM CDT 05/20/2008 11:25 AM CDT Viktoriya Gavin MD CHEMISTRY ORDERABLES Final Result Performing Organization Address [facility] de Phone Number INTERFACE SYSTEM Refer to clinic/hospital department [facility] CLIA# [id number] [address] [place] [address] * (ABNORMAL) CVR ONLY, CKMB/CK (05/20/2008 11:20 AM CDT) Pathologist [facility] CKMB 12.5(AA) <=3.8 ng/mL [facility] Comment: Results called to yenifer at 05/20/08 11:54 AM and read back verified. CKMB INTERP See Below [facility] Comment: Elevated CKMB,consistent with Myocardial Injury. CK 121 10 - 145 U/L [facility] CARDIAC RELATIVE INDEX N/A <=4.0 [facility] Blood specimen (specimen) 05/20/2008 11:20 AM CDT 05/20/2008 11:25 AM CDT Viktoriya Gavin MD CHEMISTRY ORDERABLES Edite d Performing Organization Address [facility] de Phone Number INTERFACE SYSTEM Refer to clinic/hospital department [facility] CLIA# [id number] [address] [place] [address] * (ABNORMAL) BASIC METABOLIC PANEL (05/20/2008 11:20 AM CDT) CALCIUM 8.4(L) 8.6 - 10.2 mg/dL [facility] CO2 22 22 - 30 mmol/L [facility] CREATININE 0.80 0.51 - 0.95 mg/dL [facility] POTASSIUM 4.2 3.5 - 4.9 mmol/L [facility] BUN 14 6 - 20 mg/dL [facility] CHLORIDE 109(H) 96 - 108 mmol/L [facility] GLUCOSE 111(H) 65 - 99 mg/dL [facility] SODIUM 136 135 - 145 mmol/L [facility] GFR, >60 >=60 mL/min/1. 7 sq meter [facility] GFR >60 >=60 mL/min/1. 7 sq meter [facility] Comment: Modification of Diet in Renal Disease (MDRD) study formula. Estimated GFR rate interpretative information for both Americans and non- Americans is available on the [facility] Intranet at: [email or web address] Select: Lab Policies and Procedures Select: Reference Ranges - GFR Blood specimen (specimen) 05/20/2008 11:20 AM CDT 05/20/2008 11:25 AM CDT Viktoriya Gavin MD CHEMISTRY ORDERABLES Edite d INTERFACE SYSTEM Refer to clinic/hospital department [facility] CLIA# [id number] [address] [place] [address] * (ABNORMAL) CBC WITH DIFFERENTIAL (05/20/2008 11:20 AM CDT) WBC 7.4 4.0 - 9.8 K/uL [facility] MCH 30.8 27.2 - 32.6 pg [facility] MPV 12.6(H) 9.3 - 12.4 fL [facility] HEMATOCRIT 33.0(L) 35.5 - 44.0 % [facility] RDW-STDEV 45.9 37.1 - 48.7 fL [facility] RBC 3.64(L) 3.90 - 4.90 M/uL [facility] MCHC 33.9 31.5 - 35.5 % [facility] MCV 90.7 82.0 - 99.0 fL [facility] PLATELETS 111(L) 140 - 350 K/uL [facility] HEMOGLOBIN 11.2(L) 11.8 - 14.8 g/dL [facility] RDW 13.7 11.5 - 14.5 % [facility] LYMPHOCYTES 19 16 - 45 % [facility] LYMPHOCYTE ABSOLUTE 1.37 0.70 - 4.50 K/uL [facility] BASOPHILS 0 0 - 2 % [facility] BASOPHILS ABSOLUTE 0.03 0.00 - 0.20 K/uL [facility] MONOCYTES 1(L) 3 - 13 % [facility] MONOCYTE ABSOLUTE 0.10 0.10 - 1.30 K/uL [facility] NEUTROPHILS 78(H) 45 - 70 % [facility] NEUTROPHIL ABSOLUTE 5.76 1.90 - 7.00 K/uL [facility] EOSINOPHILS 2 0 - 7 % [facility] EOSINOPHIL ABSOLUTE 0.11 0.00 - 0.70 K/uL [facility] Blood specimen (specimen) 05/20/2008 11:20 AM CDT 05/20/2008 11:25 AM CDT Viktoriya Gavin MD HEMATOLOGY ORDERABLES Edit ed INTERFACE SYSTEM Refer to clinic/hospital department [facility] CLIA# [id number] [address] [place] [address] * XR CHEST PA OR AP (05/20/2008 11:00 AM CDT) Anatomical Region Laterality Modality Chest Other 05/20/2008 11:0 0 AM CDT Narrative 05/20/2008 11:45 AM CDT [facility] [address] [place], [place] [address] Admit Date: 05/19/2008 ABEBE [place] Sex: F Admit Prov: BRIJESH BIRD Date: 1945 Primary Care Prov: CMRN: [id number] Room: [address] [place] [address] SSN: [id number] IMAGING SERVICES Ordering Prov: N/A Accession Number: [id number] Interpretation Portable AP supine chest of 1120 hours. History: Chest pain. Lines: Since the previous exam of May 19, the patient has undergone median sternotomy. The chest tubes are in expected position. The endotracheal tube tip is at the thoracic inlet. The Kewadin-Ambrosio catheter tip is overlying the main pulmonary artery. There is a mild hazy atelectatic change in the left lung. There is no pneumothorax. The heart size is mildly enlarged. Opinion: Mild cardiomegaly and mild left atelectasis . Dictated by: KANDACE MTZ 05/20/2008 11:42 Electronically signed by: KANDACE MTZ 05/20/2008 11:43 Procedure Note Kandace Mtz MD - 05/20/2008 [facility] [address] [place], [place] [address] Admit Date: 05/19/2008 ABEBE CUNNINGHAM Sex: F Admit Prov: BRIJESH BIRD Date: 1945 Primary Care Prov: CMRN: [id number] Room: [address] [place] [address] 1 SSN: [id number] IMAGING SERVICES Ordering Prov: N/A Interpretation Portable AP supine chest of 1120 hours. History: Chest pain. Lines: Since the previous exam of May 19, the patient hasundergone median sternotomy. The chest tubes are in expected position. The endotracheal tube tip is at the thoracic inlet. The Kewadin-Ganzcatheter tip is overlying the main pulmonary artery. There is a mild hazyatelectatic change in the left lung. There is no pneumothorax. The heart size ismildly enlarged. Opinion: Mild cardiomegaly and mild left atelectasis . Dictated by: KANDACE MTZ 05/20/2008 11:42 Electronically signed by: KANDACE MTZ 05/20/2008 11:43 Viktoriya Gavin MD DIAGNOSTIC IMAGING ORDERAB LES Final Result * (ABNORMAL) POC RT, BLOOD GASES (05/20/2008 10:48 AM CDT) COMMENT, GASES POC POST BYPASS [facility] PATIENT'S TEMPERATURE 37.0 Degree C [facility] LACTIC ACID 2.3(H) 0.5 - 2.2 mmol/L [facility] CALICUM IONIZED, WHOLE BLOOD 4.97 4.76 - 5.16 mg/dL [facility] PO2 ARTERIAL 220(H) 83 - 108 mm Hg [facility] SODIUM POC 136 135 - 145 mmol/L [facility] PH ARTERIAL 7.35(L) 7.35 - 7.45 [facility] BASE EXCESS ABG -0.9 -2.0 - 3.0 mmol/L [facility] HEMATOCRIT POC 26.0(L) 35.5 - 44.0 % [facility] GLUCOSE POC 108(H) 65 - 99 mg/dL [facility] O2 SAT EST ABG POC 100(H) 95 - 99 % [facility] POTASSIUM POC 4.7 3.5 - 4.9 mmol/L [facility] TCO2, ABG POC 26(H) 19 - 24 mmol/L [facility] PCO2 ARTERIAL 45 35 - 48 mm Hg [facility] HCO3 ARTERIAL 25 22 - 26 mmol/L [facility] Blood specimen (specimen) 05/20/2008 10:48 AM CDT 05/20/2008 10:48 AM CDT Birjesh Bird MD CHEMISTRY ORDERABLES Rosenda chavez Result Performing Organization Address [facility] Co de Phone Number INTERFACE SYSTEM Refer to clinic/hospital department [facility] CLIA# [id number] [address] [place] [address] * (ABNORMAL) POC RT, BLOOD GASES (05/20/2008 10:35 AM CDT) PCO2 ARTERIAL 37 35 - 48 mm Hg [facility] HCO3 ARTERIAL 24 22 - 26 mmol/L [facility] COMMENT, GASES POC POST PROTAMINE [facility] PATIENT'S TEMPERATURE 37.0 Degree C [facility] LACTIC ACID 2.1 0.5 - 2.2 mmol/L [facility] CALICUM IONIZED, WHOLE BLOOD 4.81 4.76 - 5.16 mg/dL [facility] PO2 ARTERIAL 100 83 - 108 mm Hg [facility] SODIUM POC 136 135 - 145 mmol/L [facility] PH ARTERIAL 7.41 7.35 - 7.45 [facility] BASE EXCESS ABG -1.0 -2.0 - 3.0 mmol/L [facility] HEMATOCRIT POC 25.0(L) 35.5 - 44.0 % [facility] GLUCOSE POC 110(H) 65 - 99 mg/dL [facility] O2 SAT EST ABG POC 98 95 - 99 % [facility] POTASSIUM POC 4.5 3.5 - 4.9 mmol/L [facility] [facility] TCO2, ABG POC 25(H) 19 - 24 mmol/L [facility] Blood specimen (specimen) 05/20/2008 10:35 AM CDT 05/20/2008 10:35 AM CDT Brijesh Bird MD CHEMISTRY ORDERABLES Rosenda chavez Result INTERFACE SYSTEM Refer to clinic/hospital department [facility] CLIA# [id number] [address] [place] [address] * (ABNORMAL) POC RT, BLOOD GASES (05/20/2008 10:05 AM CDT) PH ARTERIAL 7.48(H) 7.35 - 7.45 [facility] BASE EXCESS ABG 1.1 -2.0 - 3.0 mmol/L [facility] GLUCOSE POC 112(H) 65 - 99 mg/dL [facility] HEMATOCRIT POC 24.0(L) 35.5 - 44.0 % [facility] O2 SAT EST ABG POC 100(H) 95 - 99 % [facility] TCO2, ABG POC 26(H) 19 - 24 mmol/L [facility] POTASSIUM POC 5.1(H) 3.5 - 4.9 mmol/L [facility] PCO2 ARTERIAL 33(L) 35 - 48 mm Hg [facility] COMMENT, GASES POC CPB #4 [facility] HCO3 ARTERIAL 25 22 - 26 mmol/L [facility] PATIENT'S TEMPERATURE 37.0 Degree C [facility] CALICUM IONIZED, WHOLE BLOOD 4.73(L) 4.76 - 5.16 mg/dL [facility] LACTIC ACID 1.7 0.5 - 2.2 mmol/L [facility] PO2 ARTERIAL 341(H) 83 - 108 mm Hg [facility] SODIUM POC 133(L) 135 - 145 mmol/L [facility] Blood specimen (specimen) 05/20/2008 10:05 AM CDT 05/20/2008 10:05 AM CDT us Brijesh Bird MD CHEMISTRY ORDERABLES Rosenda chavez Result INTERFACE SYSTEM Refer to clinic/hospital department [facility] CLIA# [id number] [address] [place] [address] * (ABNORMAL) POC RT, BLOOD GASES (05/20/2008 9:35 AM CDT) O2 SAT EST ABG POC 100(H) 95 - 99 % [facility] HEMATOCRIT POC 24.0(L) 35.5 - 44.0 % [facility] BASE EXCESS ABG 0.1 -2.0 - 3.0 mmol/L [facility] GLUCOSE POC 107(H) 65 - 99 mg/dL [facility] PCO2 ARTERIAL 38 35 - 48 mm Hg [facility] POTASSIUM POC 4.6 3.5 - 4.9 mmol/L [facility] PCO2 TEMP CORRECT 32 mm Hg [facility] TCO2, ABG POC 26(H) 19 - 24 mmol/L [facility] PATIENT'S TEMPERATURE 33.0 Degree C [facility] HCO3 ARTERIAL 25 22 - 26 mmol/L [facility] COMMENT, GASES POC CPB #3 [facility] PO2 ARTERIAL 251(H) 83 - 108 mm Hg [facility] PO2 TEMP CORRECT 233 mm Hg [facility] LACTIC ACID 1.9 0.5 - 2.2 mmol/L [facility] CALICUM IONIZED, WHOLE BLOOD 4.93 4.76 - 5.16 mg/dL [facility] PH ARTERIAL 7.42 7.35 - 7.45 [facility] PH TEMP CORRECT 7.48 [facility] SODIUM POC 134(L) 135 - 145 mmol/L [facility] Blood specimen (specimen) 05/20/2008 9:35 AM CDT 05/20/2008 9:35 AM CDT us Brijesh Bird MD CHEMISTRY ORDERABLES Rosenda chavez Result INTERFACE SYSTEM Refer to clinic/hospital department [facility] CLIA# [id number] [address] [place] [address] * (ABNORMAL) POC RT, BLOOD GASES (05/20/2008 9:06 AM CDT) GLUCOSE POC 91 65 - 99 mg/dL [facility] HEMATOCRIT POC 22.0(AA) 35.5 - 44.0 % [facility] PCO2 ARTERIAL 38 35 - 48 mm Hg [facility] PCO2 TEMP CORRECT 32 mm Hg [facility] TCO2, ABG POC 26(H) 19 - 24 mmol/L [facility] POTASSIUM POC 3.8 3.5 - 4.9 mmol/L [facility] PATIENT'S TEMPERATURE 33.0 Degree C [facility] COMMENT, GASES POC CPB #2 [facility] HCO3 ARTERIAL 25 22 - 26 mmol/L [facility] PO2 ARTERIAL 275(H) 83 - 108 mm Hg [facility] CALICUM IONIZED, WHOLE BLOOD 4.37(L) 4.76 - 5.16 mg/dL [facility] PO2 TEMP CORRECT 257 mm Hg [facility] LACTIC ACID 2.1 0.5 - 2.2 mmol/L [facility] PH ARTERIAL 7.42 7.35 - 7.45 [facility] PH TEMP CORRECT 7.48 [facility] SODIUM POC 136 135 - 145 mmol/L [facility] O2 SAT EST ABG POC 100(H) 95 - 99 % [facility] BASE EXCESS ABG 0.1 -2.0 - 3.0 mmol/L [facility] Blood specimen (specimen) 05/20/2008 9:06 AM CDT 05/20/2008 9:06 AM CDT us Brijesh Bird MD CHEMISTRY ORDERABLES Rosenda chavez Result Performing Organization Address City/State/[facility] Co de Phone Number INTERFACE SYSTEM Refer to clinic/hospital department [facility] CLIA# [id number] [address] [place] [address] * (ABNORMAL) POC RT, BLOOD GASES (05/20/2008 9:02 AM CDT) [facility] IONIZED, WHOLE BLOOD 4.45(L) 4.76 - 5.16 mg/dL [facility] LACTIC ACID 2.1 0.5 - 2.2 mmol/L [facility] PH TEMP CORRECT 7.39 [facility] SODIUM POC 135 135 - 145 mmol/L [facility] O2 SAT EST MVBG POC 67 40 - 70 % [facility] PO2 TEMP CORRECT 29 mm Hg [facility] GLUCOSE POC 92 65 - 99 mg/dL [facility] HEMATOCRIT POC 22.0(AA) 35.5 - 44.0 % [facility] PCO2 VENOUS 52(H) 38 - 50 mm Hg [facility] PCO2 TEMP CORRECT 44 mm Hg [facility] TCO2, MVBG POC 29(H) 22 - 26 mmol/L [facility] POTASSIUM POC 3.9 3.5 - 4.9 mmol/L [facility] PATIENT'S TEMPERATURE 33.0 Degree C [facility] BASE EXCESS VENOUS 1.2 -2.0 - 3.0 mmol/L [facility] COMMENT, GASES POC CPB #1 [facility] PO2 MVBG 38 25 - 40 mm Hg [facility] HCO3 MIXED VENOUS 27 22 - 29 mmol/L [facility] PH MVBG 7.33 7.32 - 7.43 [facility] Blood specimen (specimen) 05/20/2008 9:02 AM CDT 05/20/2008 9:02 AM CDT us Brijesh Bird MD CHEMISTRY ORDERABLES Rosenda chavez Result INTERFACE SYSTEM Refer to clinic/hospital department [facility] CLIA# [id number] [address] [place] [address] * (ABNORMAL) POC RT, BLOOD GASES (05/20/2008 8:43 AM CDT) PO2 ARTERIAL 259(H) 83 - 108 mm Hg [facility] SODIUM POC 137 135 - 145 mmol/L [facility] PH ARTERIAL 7.39 7.35 - 7.45 [facility] BASE EXCESS ABG 3.5(H) -2.0 - 3.0 mmol/L [facility] HEMATOCRIT POC 31.0(L) 35.5 - 44.0 % [facility] GLUCOSE POC 100(H) 65 - 99 mg/dL [facility] O2 SAT EST ABG POC 100(H) 95 - 99 % [facility] POTASSIUM POC 3.8 3.5 - 4.9 mmol/L [facility] TCO2, ABG POC 31(H) 19 - 24 mmol/L [facility] PCO2 ARTERIAL 48 35 - 48 mm Hg [facility] HCO3 ARTERIAL 29(H) 22 - 26 mmol/L [facility] COMMENT, GASES POC POST HEPARIN [facility] PATIENT'S TEMPERATURE 37.0 Degree C [facility] LACTIC ACID 1.2 0.5 - 2.2 mmol/L [facility] CALICUM IONIZED, WHOLE BLOOD 4.53(L) 4.76 - 5.16 mg/dL [facility] Blood specimen (specimen) 05/20/2008 8:43 AM CDT 05/20/2008 8:43 AM CDT us Brijesh Bird MD CHEMISTRY ORDERABLES Rosenda chavez Result INTERFACE SYSTEM Refer to clinic/hospital department [facility] CLIA# [id number] [address] [place] [address] * (ABNORMAL) POC RT, BLOOD GASES (05/20/2008 7:37 AM CDT) SODIUM POC 137 135 - 145 mmol/L [facility] PH ARTERIAL 7.43 7.35 - 7.45 [facility] BASE EXCESS ABG 3.8(H) -2.0 - 3.0 mmol/L [facility] GLUCOSE POC 95 65 - 99 mg/dL [facility] HEMATOCRIT POC 31.0(L) 35.5 - 44.0 % [facility] O2 SAT EST ABG POC 100(H) 95 - 99 % [facility] TCO2, ABG POC 30(H) 19 - 24 mmol/L [facility] POTASSIUM POC 3.5 3.5 - 4.9 mmol/L [facility] PCO2 ARTERIAL 43 35 - 48 mm Hg [facility] COMMENT, GASES POC POST INDUCTION [facility] HCO3 ARTERIAL 28(H) 22 - 26 mmol/L [facility] PATIENT'S TEMPERATURE 37.0 Degree C [facility] CALICUM IONIZED, WHOLE BLOOD 4.53(L) 4.76 - 5.16 mg/dL [facility] LACTIC ACID 1.5 0.5 - 2.2 mmol/L [facility] PO2 ARTERIAL 285(H) 83 - 108 mm Hg [facility] Blood specimen (specimen) 05/20/2008 7:37 AM CDT 05/20/2008 7:37 AM CDT us Brijesh Bird MD CHEMISTRY ORDERABLES Rosenda chavez Result Performing Organization Address City/State/[facility] Co de Phone Number INTERFACE SYSTEM Refer to clinic/hospital department [facility] CLIA# [id number] [address] [facility] [place] [address] * TYPE & CROSS ADDITIONAL PACKED CELLS (05/20/2008 6:30 AM CDT) Specimen of unknown material (specimen) 05/20/2008 6:30 AM CDT 05/20/2008 6:40 AM CDT Narrative INTERFACE SYSTEM - 05/20/2008 6:41 AM CDT please keep 2 units ahead for surgery us Viktoriya Gavin MD BLOOD BANK ORDERABLES Rosenda l Result Performing Organization Address City/[facility] Co de Phone Number INTERFACE SYSTEM Refer to clinic/hospital department * XR CHEST PA AND LATERAL (05/19/2008 10:01 PM CDT) Anatomical Region Laterality Modality Chest Other 05/19/2008 10:0 1 PM CDT Narrative 05/20/2008 7:14 AM CDT [facility] [address] [place], [place] [address] Admit Date: 05/19/2008 A[place]BE [place] Sex: F Admit Prov: BRIJESH BIRD Date: 1945 Primary Care Prov: CMRN: [id number] Room: [place] [address] SSN: [id number] IMAGING SERVICES Ordering Prov: N/A Accession Number: [id number] Interpretation CHEST, PA AND LATERAL, 05/19/2008 History: Angina, chest pain, preoperative examination. Findings: No infiltrate, pleural effusion or pneumothorax is present. The heart is enlarged. Mediastinum and pulmonary vascularity are normal. Impression: No active pulmonary disease. . Dictated by: NATE PEOPLES 05/19/2008 22:17 Electronically signed by: NATE PEOPLES 05/20/2008 07:13 Transcribed: 05/19/2008 22:32 SJ Procedure Note Nate Peoples MD - 05/20/2008 [facility] [address], [place] [address] Admit Date: 05/19/2008 ABEBE [place] Sex: F Admit Prov: BRIJESH BIRD Date: 1945 Primary Care Prov: CMRN: [id number] Room: [place] [address] SSN: [id number] IMAGING SERVICES Ordering Prov: N/A Interpretation CHEST, PA AND LATERAL, 05/19/2008 History: Angina, chest pain, preoperative examination. Findings: No infiltrate, pleural effusion or pneumothorax is present.The heart is enlarged. Mediastinum and pulmonary vascularity arenormal. Impression: No active pulmonary disease. . Dictated by: NATE PEOPLES 05/19/2008 22:17 Electronically signed by: NATE PEOPLES 05/20/2008 07:13 Transcribed: 05/19/2008 22:32 SJ Viktoriya Gavin MD DIAGNOSTIC IMAGING ORDERAB LES Final Result * URINE CULTURE (05/19/2008 10:00 PM CDT) PRELIMINARY REPORT Pending [facility] FINAL REPORT No growth 24 hours [facility] 05/19/2008 10:0 0 PM CDT 05/19/2008 11:22 PM CDT Viktoriya Gavin MD MICROBIOLOGY - GENERAL ORD ERABLES Final Result INTERFACE SYSTEM Refer to clinic/hospital department [facility] CLIA# [id number] [address] [place] [address] * (ABNORMAL) URINALYSIS (05/19/2008 10:00 PM CDT) PH UA 5.0 5.0 - 8.0 [facility] WBC UA 13(H) 0 - 5 /HPF [facility] KETONES UA Negative Negative [facility] CLARITY UA Slt. Cloudy(A) Clear [facility] BILIRUBIN UA Negative Negative [facility] PROTEIN UA Negative Negative [facility] LEUKOCYTE ESTERASE UA 3+(A) Negative [facility] RBC UA 3 0 - 4 /HPF [facility] SPECIFIC GRAVITY UA 1.007 1.001 - 1.035 [facility] GLUCOSE UA Negative Negative [facility] BLOOD UA Negative Negative [facility] COLOR UA Colorless [facility] NITRITE UA Negative Negative [facility] EPITHELIAL CELLS, URINE Many /HPF [facility] UROBILINOGEN UA <1 <=1 mg/dL [facility] 05/19/2008 10:0 0 PM CDT 05/19/2008 10:31 PM CDT us Viktoriya Gavin MD URINE ORDERABLES Final Res ult Performing Organization Address [facility] Co de Phone Number INTERFACE SYSTEM Refer to clinic/hospital department [facility] CLIA# [id number] [address] [place] [address] * URINALYSIS WITH REFLEX CULTURE (05/19/2008 10:00 PM CDT) URINE CULTURE ORDER Culture ordered [facility] Comment: Criteria for a reflex culture [...] clinic/hospital department [facility] CLIA# [id number] [address] [place] [address] * CBC WITH DIFFERENTIAL (05/19/2008 4:15 PM CDT) MCV 93.0 82.0 - 99.0 fL [facility] PLATELETS 176 140 - 350 K/uL [facility] HEMOGLOBIN 12.5 11.8 - 14.8 g/dL [facility] RDW 13.1 11.5 - 14.5 % [facility] WBC 4.7 4.0 - 9.8 K/uL [facility] MCH 31.3 27.2 - 32.6 pg [facility] MPV 12.4 9.3 - 12.4 fL [facility] HEMATOCRIT 37.2 35.5 - 44.0 % [facility] RDW-STDEV 43.9 37.1 - 48.7 fL [facility] RBC 4.00 3.90 - 4.90 M/uL [facility] MCHC 33.6 31.5 - 35.5 % [facility] NEUTROPHIL ABSOLUTE 2.47 1.90 - 7.00 K/uL [facility] EOSINOPHILS 3 0 - 7 % [facility] EOSINOPHIL ABSOLUTE 0.16 0.00 - 0.70 K/uL [facility] LYMPHOCYTES 38 16 - 45 % [facility] LYMPHOCYTE ABSOLUTE 1.78 0.70 - 4.50 K/uL [facility] BASOPHILS 1 0 - 2 % [facility] BASOPHILS ABSOLUTE 0.04 0.00 - 0.20 K/uL [facility] MONOCYTES 5 3 - 13 % [facility] MONOCYTE ABSOLUTE 0.22 0.10 - 1.30 K/uL [facility] NEUTROPHILS 53 45 - 70 % [facility] Blood specimen (specimen) 05/19/2008 4:15 PM CDT 05/19/2008 4:32 PM CDT us Viktoriya Gavin MD HEMATOLOGY ORDERABLES Edit ed Performing Organization Address [facility] de Phone Number INTERFACE SYSTEM Refer to clinic/hospital department [facility] CLIA# [id number] [address] [place] [address] * POC ACTIVATED CLOTTING TIME (05/19/2008 2:25 PM CDT) ACT POC 121 Seconds [facility] Comment: ansiNote sheath pull range change effective 02/24/2006. ACT value for sheath pull at [facility] has been established to be < or = to 140. (See also Nursing Procedures for sheath pull in related nursing areas) Blood specimen (specimen) 05/19/2008 2:25 PM CDT 05/19/2008 2:25 PM CDT us Brijesh Bird MD POINT OF CARE TESTING Fin al Result Performing Organization Address [facility] de Phone Number INTERFACE SYSTEM Refer to clinic/hospital department [facility] CLIA# [id number] [address] [place] [address] * (ABNORMAL) COMPREHENSIVE METABOLIC PANEL (05/19/2008 1:25 PM CDT) AST 18 12 - 32 U/L [facility] BUN 14 6 - 20 mg/dL [facility] CALCIUM 9.1 8.6 - 10.2 mg/dL [facility] ALBUMIN 3.6 3.4 - 4.8 g/dL [facility] CHLORIDE 104 96 - 108 mmol/L [facility] CREATININE 0.70 0.51 - 0.95 mg/dL [facility] ALT 19 0 - 31 U/L [facility] SODIUM 137 135 - 145 mmol/L [facility] ALKALINE PHOSPHATASE 75 35 - 104 U/L [facility] CO2 25 22 - 30 mmol/L [facility] BILIRUBIN TOTAL 0.2 0.2 - 1.0 mg/dL [facility] POTASSIUM 3.7 3.5 - 4.9 mmol/L [facility] TOTAL PROTEIN 5.9(L) 6.3 - 8.6 g/dL [facility] GLUCOSE 88 65 - 99 mg/dL [facility] GFR, >60 >=60 mL/min/1. 7 sq meter [facility] GFR >60 >=60 mL/min/1. 7 sq meter [facility] Comment: Modification of Diet in Renal Disease (MDRD) study formula. Estimated GFR rate interpretative information for both Americans and non- Americans is available on the [facility] Intranet at: [email or web address] Select: Lab Policies and Procedures Select: Reference Ranges - GFR Blood specimen (specimen) 05/19/2008 1:25 PM CDT 05/19/2008 1:39 PM CDT us Brijesh Bird MD CHEMISTRY ORDERABLES Edit ed Performing Organization Address [facility] Phone Number INTERFACE SYSTEM Refer to clinic/hospital department [facility] CLIA# [id number] [address] [place] [address] * POC ACTIVATED CLOTTING TIME (05/19/2008 1:19 PM CDT) ACT POC 161 Seconds [facility] Comment: Note sheath pull range change effective 02/24/2006. ACT value for sheath pull at [facility] has been established to be < or = to 140. (See also Nursing Procedures for sheath pull in related nursing areas) Blood specimen (specimen) 05/19/2008 1:19 PM CDT 05/19/2008 1:19 PM CDT Brijesh Bird MD POINT OF CARE TESTING Fin al Result Performing Organization Address [facility] Phone Number INTERFACE SYSTEM Refer to clinic/hospital department [facility] CLIA# [id number] [address] [place] [place] [address] * TYPE AND CROSSMATCH (05/19/2008 12:48 PM CDT) HISTORY CHECK No Historical ABO/Rh [facility] SPECIMEN LIFE 3 days from drawdate [facility] ABO/RH TYPE A Negative [facility] ANTIBODY SCREEN Negative [facility] Blood specimen (specimen) 05/19/2008 12:48 PM CDT us Viktoriya Gavin MD BLOOD BANK ORDERABLES Edit ed Performing Organization Address [facility] de Phone Number INTERFACE SYSTEM Refer to clinic/hospital department [facility] CLIA# [id number] [address] [place] [address] * CL CORONARY ANGIOGRAM (05/19/2008 11:59 AM CDT) Narrative INTERFACE SYSTEM - 05/19/2008 11:59 AM CDT [facility] [address] [place] [address] [email or web address] Cardiac Catheterization Comprehensive Report Patient: Abebe Cunningham Study ID: [id number] Gender: F : 1945 Age: 63 years Race: 1 Room: Bed: Height: 67 in ( 170.2 cm ) Study Date: May 19, 2008 Patient status: Outpatient Weight: 222 lb ( 100.9 kg ) Access. #: [id number] POC: Attending MD: Kamini Performing MD: Kamini [...] 11:40:08 Procedure Note Provider, Historical - 05/19/2008 [place] [address] [place] [address] [email or web address] Cardiac Catheterization Comprehensive Report Patient: Abebe Cunningham Study ID: [id number] Gender: F : 1945 Age: 63 years Race: 1 Room: Bed: Height: 67 in ( 170.2 cm ) Study Date: May 19, 2008 Patient status: Outpatient Weight: 222 lb ( 100.9 kg ) Access. #: [id number] POC: Attending MD: Kamini Performing MD: Kamini [...] Bird MD Confirmed May 19, 2008 11:40:08 Brijesh Bird MD FLUOROSCOPY ORDERABLES Fi nal Result Performing Organization Address [facility] Phone Number INTERFACE SYSTEM Refer to clinic/hospital department * POC ACTIVATED CLOTTING TIME (05/19/2008 11:53 AM CDT) ACT POC 192 Seconds [facility] Comment: Note sheath pull range change effective 02/24/2006. ACT value for sheath pull at [facility] has been established to be < or = to 140. (See also Nursing Procedures for sheath pull in related nursing areas) Blood specimen (specimen) 05/19/2008 11:53 AM CDT 05/19/2008 11:53 AM CDT us Brijesh Bird MD POINT OF CARE TESTING Fin al Result Performing Organization Address [facility] Phone Number INTERFACE SYSTEM Refer to clinic/hospital department [facility] CLIA# [id number] [address] [place] [address] * POC ACTIVATED CLOTTING TIME (05/19/2008 10:34 AM CDT) ACT POC 228 Seconds [facility] Comment: Note sheath pull range change effective 02/24/2006. ACT value for sheath pull at [facility] has been established to be < or = to 140. (See also Nursing Procedures for sheath pull in related nursing areas) Blood specimen (specimen) 05/19/2008 10:34 AM CDT 05/19/2008 10:34 AM CDT Brijesh Bird MD POINT OF CARE TESTING Fin al Result Performing Organization Address [facility] Phone Number INTERFACE SYSTEM Refer to clinic/hospital department [facility] CLIA# [id number] [address] [place] [address] documented in this encounter Visit Diagnoses Diagnosis Other and unspecified angina pectoris documented in this encounter Care Teams Microbiology Technician Relationship Specialty Start Date End Date Murray Bourne MD [address] [place] [phone] PCP - General Family Practice 05/25/20 documented as of this encounter
--- OUTSIDE RECORDS SUMMARY | 2024-12-23 18:28 | XMS_ITS | Encounter Summary ---
Author Organization [facility] Address [address] [facility] [place] [address] Care Team Providers Care Cracking Still Operator Name Role Phone Unavailable Primary Care Provider Unavailabl e Encounter Details Date Type Department Care Team (Late st Contact Info) Description 01/26/2023 Lab Requisition [facility] - Pathology Lab [address] [place] [address] Bola Arzola MD [facility] [address] [address] Anemia in other chronic diseases classified elsewhere Social History Tobacco Use Types Packs/Day Years Used Date Smoking Tobacco: Never Assessed Comments Unknown Sex and Gender Information Value Date Recorded Sex Assigned at Not on file 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 - See interpretation. 01/26/2023 5:16 PM [facility] Flow Cytometry Interpretation The [...] the flow cytometry specimen is reviewed for compliance quality performance analyst purposes. The bone marrow aspirate specimen shows no evidence of involvement by non-Hodgkin lymphoma or a high-grade myeloid neoplasm. Correlation with clinical findings, the concurrent bone marrow core biopsy, and relevant cytogenetic/molecu lar studies is required. 01/26/2023 5:16 PM [facility] Flow Cytometry Results Differential Result Comment Flow Cell Count /uL 21,300 Total Viability % 94.0 Lymphocytes % 17 Dim CD45 Region % 11 Monocytes % 9 Granulocytes % 63 01/26/2023 5:16 PM [facility] Reason for test Anemia in other chronic diseases classified elsewhere 01/26/2023 5:16 PM [facility] Client Specimen ID # [id number] 01/26/2023 5:16 PM [facility] Number of markers 10 were performed. A-2 Flow CD10 A-3 Flow CD13 A-5 Flow CD20 A-1 Flow CD5 A-4 Flow CD19 A-6 Flow CD33 A-7 Flow CD34 A-8 Flow CD45 A-9 Hooper+CD19+ A-10 Lambda+CD19+ 01/26/2023 5:16 PM [facility] Pathologist Location at [facility] 01/26/2023 5:16 PM [facility] Disclaimer Test performed at [facility], [address] [place], [place], [address]. *The established laboratory minimum viability is 70%. [...] complexity clinical testing. 01/26/2023 5:16 PM CDT [facility] Embedded Images 5:16 PM CDT [facility] Pathology/Cytolo gy BONE MARROW SPECIMEN / Unknown 01/26/2023 9:23 AM CDT 01/26/2023 12:48 PM CDT Bola Arzola MD LAB - PATHOLOGY/CYTOLOGY ORDERAB LES Final Result [facility] [address] [place] [address], [facility] [phone] documented in this encounter Visit Diagnoses Diagnosis Anemia in other chronic diseases classified elsewhere documented in this encounter
--- OUTSIDE RECORDS SUMMARY | 2024-12-23 18:28 | XMS_ITS | Referral Summary ---
Author Organization [facility] [address] Address [address] [place] [address] Care Team Providers Care Sweet Potato Disintegrator Name Role Phone Murray Bourne MD Primary Care Provider Encounters Date Type Department Care Team Description 11/12/2024 Orders Only [facility] Health Information Management [address] [place] [address] Derrick Bird MD from Last 3 Months [...] Overview (12/08/2016): Pure hypercholesterolemia Coronary arteriosclerosis in [place] artery 01/13 Overview (12/08/2016): Coronary arteriosclerosis in [place] artery Social History Tobacco Use Types Packs/Day [...] on file Legal Sex Female 2:02 AM BRANDS EDITOR Gender Identity Female 04/28/2020 9:32 AM CDT Sexual Orientation Straight 04/28/2020 9: 32 AM CDT Last Filed Vital Signs Vital Sign Reading Time Taken Comments Blood Pressure 124/68 07/26/2024 10:13 AM BRANDS EDITOR Pulse 63 07/26/2024 10:13 AM BRANDS EDITOR Temperature - - Respiratory Rate 12 03/14/2017 11:29 AM CDT Oxygen Saturation 97% 07/26/2024 10:13 AM BRANDS EDITOR Inhaled Oxygen Concentration - - Weight 93.4 kg (206 lb) 07/26/2024 10:13 AM BRANDS EDITOR Height 170.2 cm (5' 7 ) 07/26/2024 10:13 AM BRANDS EDITOR Body Mass Index 32.26 07/26/2024 10:13 AM BRANDS EDITOR Plan of Treatment Not on file Procedures Procedure Name Priority Date/Time Associated Diagnosis Comments GI - RESULT 11/12/2024 from Last 3 Months Results * GI - RESULT (11/12/2024) Anatomical Region Laterality Modality Other us Derrick Bird MD Edited R esult - Final from Last 3 Months Insurance [facility] MEDICARE GOLD Care Teams Sweet Potato Disintegrator Relationship Specialty Start Date End Date Murray Bourne MD [address] [facility] [address] [address] PCP - General Family Practice 05/16/23
--- OUTSIDE RECORDS SUMMARY | 2024-12-23 18:28 | XMS_ITS | Encounter Summary ---
Author Organization [facility] Address [address] [facility] [place] [address] Care Team Providers Care Software Engineer Kernel Name Role Phone Unavailable Primary Care Provider Unavailabl e Encounter Details Date Type Department Care Team (Late st Contact Info) Description 02/01/[address] [facility] - Pathology Lab [address] [place] [address] Bola Arzola MD [facility] [address] [address] Illness, unspecified Social History Tobacco Use Types Packs/Day Years Used Date Smoking Tobacco: Never Assessed Comments Unknown Sex and Gender Information Value Date Recorded Sex Assigned at Not on file Legal Sex Female 5:54 AM JEWEL WAXER Gender Identity Not on file Sexual Orientation [...] Report Bone Marrow Patholog y Report Case: [id number] Authorizing Provider: Bola Arzola MD Collected: 01/26/2023 09:23 AM Ordering Location: [facility] Pathology Lab Received: 02/01/2023 08:23 AM Pathologist: Chana Powers MD Specimens: A) - Bone Marrow Clot, bone marrow aspirate B) - Bone Marrow Core, right hip 02/02/2023 9:35 AM [facility] Final Diagnosis Bone marrow, aspirate, clot section, and core biopsy: - Normocellular marrow with maturing trilineage hematopoiesis. - No evidence of lymphoma, high-grade myeloid neoplasm, or metastatic disease. - See description. Peripheral blood smear: - Macrocytic anemia. - See description. 02/02/2023 9:35 AM [facility] Comment Immunohistochemistry is performed to assess staining cells in an architectural context: CD3 and CD20 highlight the reactive appearing lymphoid aggregates. CD34 is negative for increased blasts. CD138 is negative for increased plasma cells. 02/02/2023 9:35 AM [facility] Peripheral Smear Description RBC: macrocytic anemia. WBC: normal in number and morphology. Platelets: normal in number and morphology. 02/02/2023 9:35 AM [facility] Bone Marrow Aspirate Differential count (200 cells): normal differential count.. Specimen quality: adequate. Spicules: many. Trilineage Hematopoiesis: present. Myeloid:Erythroid ratio: normal. Myeloid Maturation: normal. Erythroid Maturation: normal. Megakaryocyte morphology: normal size. Storage iron (by special stain): increased. Sideroblastic iron (by special stain): no ring sideroblasts. 02/02/2023 9:35 AM [facility] Bone Marrow Core Biopsy [...] similar to core biopsy. 02/02/2023 9:35 AM [facility] Flow Cytometry Summary Bone marrow, flow cytometric immunophenotypic analysis ([id number]): - No evidence of non-Hodgkin lymphoma or high-grade myeloid neoplasm. 02/02/2023 9:35 AM CDT [facility] Clinical History Macrocytic anemia. History of colon cancer. 02/02/2023 9:35 AM CDT [facility] Materials Received Received are 21 slide(s), and 3 blocks (A1; A2, B1) labeled [id number] along with a copy of the outside pathology report. [place] [address]. All original materials are returned to the referring institution, along with a copy of our final report. 02/02/2023 9:35 AM CDT [facility] Pathologist Location at [facility] 02/02/2023 9:35 AM T [facility] Disclaimer The performance characteristics of all immunohistochemical and indirect immunofluorescence stains (if any) cited in this report were determined by the Histopathology Laboratory of [facility]. Some of these tests were developed [...] attending (teaching) pathologist. 02/02/2023 9:35 AM T [facility] Embedded Images 02/02/2023 9:35 AM CDT [facility] Pathology/Cytology BONE MARROW SPECIMEN / Unknown 01/26/2023 9:23 AM CDT 02/01/2023 8:23 AM CDT Miscellaneous samples (specimen) BONE MARROW SPECIMEN / Unknown 01/26/2023 9:23 AM CDT 02/01/2023 8:23 AM CDT Bola Arzola MD LAB - PATHOLOGY/CYTOLOGY ORDERAB LES Final Result [facility] [address] [phone] documented in this encounter Visit Diagnoses Diagnosis Illness, unspecified documented in this encounter
--- OUTSIDE RECORDS SUMMARY | 2024-12-23 18:28 | XMS_ITS | Clinical Summary ---
Author Organization [facility] [address] Address [address] [place] [address] Care Team Providers Care Coil Tester Name Role Phone Murray Bourne MD Primary [...] Overview (12/08/2016): Pure hypercholesterolemia Coronary arteriosclerosis in [place] artery 01/13 Overview (12/08/2016): Coronary arteriosclerosis in [place] artery Encounters Date Type Department Care Team Description 11/12/2024 Orders Only [facility] Health Information Management [address] [place] [address] Derrick Bird MD from Last 3 Months [...] on file Legal Sex Female 2:02 AM EXECUTOR OF ESTATE Gender Identity Female 04/28/2020 9:32 AM CDT Sexual Orientation Straight 04/28/2020 9: 32 AM CDT Obstetrics History Last Filed Vital Signs Vital Sign Reading Time Taken Comments Blood Pressure 124/68 07/26/2024 10:13 AM EXECUTOR OF ESTATE Pulse 63 07/26/2024 10:13 AM EXECUTOR OF ESTATE Temperature - - Respiratory Rate 12 03/14/2017 11:29 AM CDT Oxygen Saturation 97% 07/26/2024 10:13 AM EXECUTOR OF ESTATE Inhaled Oxygen Concentration - - Weight 93.4 kg (206 lb) 07/26/2024 10:13 AM EXECUTOR OF ESTATE Height 170.2 cm (5' 7 ) 07/26/2024 10:13 AM EXECUTOR OF ESTATE Body Mass Index 32.26 07/26/2024 10:13 AM EXECUTOR OF ESTATE Plan of Treatment Health Maintenance Due Date [...] Months Insurance [employer] MEDICARE GOLD Care Teams Coil Tester Relationship Specialty Start Date End Date Murray Bourne MD [address] [facility] [address] [facility] [place] [address] PCP - General Family Practice 05/16/23
--- OUTSIDE RECORDS SUMMARY | 2024-12-23 18:28 | XMS_ITS | Encounter Summary ---
Author Organization [facility] Address [address] [facility] [address] [place] [address] Care Team Providers Care Crankshaft Balancer Name Role Phone Rangel Mejia Primary Care Provider [phone] Murray Bourne MD Primary Care Provider Encounter Details Date Type Department Care Team (Late st Contact Info) Description 12/13/2016 Orders Only [facility] ProviderNeftaly MD [address] [place] [address] Social History Tobacco Use Types Packs/Day Years Used Date Smoking Tobacco: Former Cigarettes Q uit: 09/04/2007 Alcohol Use Standard Drinks/Week Comments Yes 0 (1 standard drink = 0.6 oz pur e alcohol) Comments Unknown Sex and Gender Information Value Date Recorded Sex Assigned at Not on file Legal Sex Female 2:02 AM SUPERVISOR SKI PRODUCTION Gender Identity Female 04/28/2020 9:32 AM CDT [...] on filedocumented in this encounter Care Teams Crankshaft Balancer Relationship Specialty Start Date End Date Rangel Mejia [address] [facility] [place] [address] PCP - General 12/02/16 04/02/18 Murray Bourne MD [address] [facility] [address] [place] [address] PCP - General Family Practice 05/16/23 documented as of this encounter
--- OUTSIDE RECORDS SUMMARY | 2024-12-23 18:28 | XMS_ITS | Encounter Summary ---
Author Organization [facility] Address [address] [place] [address] Care Team Providers Care Ware Tester Name Role Phone Murray Bourne MD Primary Care Provider Reason for Visit * Reason Onset Date Comments Needs hospitalist 06/18/2020 Gave message t o TRIXIE Mak on cell phone Encounter Details Date Type Department Care Team (Late Contact Info) Description 06/18/2020 Telephone [facility] Admitting [address] [place] [address] [place] [address] [facility] [address] [place] [address] Needs hospitalist (Gave message to ART EDUCATION PROFESSOR Aubree on cell phone) Social History Tobacco Use Types Packs/Day Years Used Date Smoking Tobacco: Every Day Cigarettes Smokeless Tobacco: Never Alcohol Use Standard Drinks/Week Comments Yes 0 (1 standard drink = 0.6 oz pur e alcohol) twice a year Comments No Sex and Gender Information Value Date Recorded Sex Assigned at Not on file Legal Sex Female 5:09 AM ENGINEERING INTERN Gender Identity Not on file Sexual Orientation Not on file COVID-19 Exposure Response Date Recorded In the last month, have you been in contact with someone who was confirmed or suspected to have Coronavirus / COVID-19? No / Unsure 06/17/2020 7:05 AM CDT documented as of this encounter Plan of Treatment Upcoming Encounters Date Type Department Care Team (Late Contact Info) Description 01/06/2025 2:00 PM CDT Office Visit [facility] Oncology and Hematology - Real [address] [address] Koby Vinson MD [address] [facility] [address] [place] [address] documented as of this encounter Visit Diagnoses Not on filedocumented in this encounter Care Teams Ware Tester Relationship Specialty Start Date End Date Murray Bourne MD [address] [place] [address] PCP - General Family Practice 05/25/20 documented as of this encounter
[2024-12-23 18:53] VITALS: BP 137/54; PULSE 77; RESP 18; TEMP 36.7; O2SAT 97
--- OUTSIDE RECORDS SUMMARY | 2024-12-23 19:38 | XMS_ITS | Clinical Summary ---
Author Organization [facility] Address [address] [place] [address] Phone Care Team Providers Care Metal Rivet Machine Operator Name Role Phone Murray Bourne [...] bypass graft) 03/14/20 17 Coronary arteriosclerosis in [place] artery 01/13 Overview (06/19/2020): Coronary arteriosclerosis in [place] artery Pure hypercholesterolemia 01/13/2015 Overview (06/19/2020): Pure hypercholesterolemia Encounters Date Type Department Care Team Description 12/03/2024 External Device Data ST[facility] ABSTRACTION Provider, Abstract 11/20/2024 External Device Data [facility] ABSTRACTION Provider, Abstract 11/14/2024 Abstract [facility] Oncology and Hematology [facility] [address] [place] [address] Koby Vinson MD 11/09/2024 External Device Data ST[facility] ABSTRACTION Provider, Abstract 11/08/2024 External Device Data [facility] ABSTRACTION Provider, Abstract 11/06/2024 External Device Data [facility] ABSTRACTION Provider, Abstract 10/28/2024 2:30 PM INTAKE RN Office Visit [facility] Oncology and Hematology [facility] [address] [place] [address] Koby Vinson MD Iron deficiency anemia, unspecified iron deficiency anemia type (Primary Dx) 10/21/2024 Orders Only [facility] Oncology and Hematology [facility] [address] [place] [phone] Koby Vinson MD 10/21/2024 Abstract [facility] Oncology and Hematology - Real [address] [place] [phone] Koby Vinson MD 10/18/2024 Abstract [facility] Oncology and Hematology - Real [address] [place] [address] Koby Vinson MD 10/15/2024 Telephone [facility] Oncology and Hematology - Real [address] [place] [phone] Koby Vinson MD Lab Results (Low hem. ) 10/15/2024 Orders Only [facility] Oncology and Hematology - Real [facility] [address] [place] [phone] Koby Vinson MD Chronic anemia (Primary Dx) 10/01/2024 External Device Data STL ABSTRACTION Provider, Abstract 10/01/2024 Orders Only [facility] Oncology and Hematology - Real [address] [place] [address] Koby Vinson MD from Last 3 Months [...] on file Legal Sex Female 5:09 AM INTAKE RN Gender Identity Not on file Sexual Orientation Not on file Last Filed Vital Signs Vital Sign Reading Time Taken Comments Blood Pressure 132/77 10/28/2024 2:37 PM INTAKE RN Pulse 60 10/28/2024 2:37 PM INTAKE RN Temperature 36.1 C (97 F) 10/28/2024 2:37 PM INTAKE RN Respiratory Rate 15 10/28/2024 2:37 PM INTAKE RN Oxygen Saturation 94% 10/28/2024 2:37 PM INTAKE RN Inhaled Oxygen Concentration - - Weight 89.9 kg (198 lb 3.2 oz) 10/28/2024 2:37 P M INTAKE RN Height 170.2 cm (5' 7 ) 09/08/2022 3:24 PM INTAKE RN Body Mass Index 31.04 09/08/2022 3:24 PM INTAKE RN Plan of Treatment Upcoming Encounters Date Type Department Care Team (Late st Contact Info) Description 01/06/2025 2:00 PM CDT Office Visit [facility] Oncology and Hematology - Real [address] [facility] [address] [place] [address] Koby Vinson MD [address] [facility] [address] [place] [address] Health Maintenance Due Date Last [...] years Discontinued Medical Devices Implanted Type Area Senior Security Architect Device Identifier Shelf Expiration Date Model / Serial / Lot Filler Bone Stimulan Paste 5cc W/Beads 620-005 - [id number] Implanted:Qty: 1 on 06/17/2020 by Bear Vasques MD at [facility] Biological N/A: Spine Lumbar [employer] 10/04/2022 620-005 / / [id number] Description:BRADEN [id number] Hemostatic Surgiflo 8ml W/Thrombin 2994 - [id number] Implanted:Qty: 1 on 06/17/2020 by Bear Vasques MD at [facility] Hemostatic N/A: Spine Lumbar [employer] 06/03/2021 2994 / / [id number] Tad Cdh Solera Ccm 4.28o68rk Capped [id number] - [id number] Implanted:Qty: 1 on 06/17/2020 by Bear Vasques MD at [facility] Tad N/A: Spine Lumbar [employer] SOFAMOR DANEK [id number] / / Description:BRADEN [id number] Tad Cdh Solera Ccm 4.47d24dc Capped [id number] - [id number] Implanted:Qty: 1 on 06/17/2020 by Bear Vasques MD at [facility] Tad N/A: Spine Lumbar [employer]ANE[employer] [id number] / / Description:LOAD # [id number] DATE 06/09/2020 Screw Solera Frederic Ma 6.5x45mm 4.75 Ext Tab [id number] - [id number] Implanted:Qty: 1 on 06/17/2020 by Bear Vasques MD at [facility] Screw N/A: Spine Lumbar [employer] SOFAM[employer]ANE[employer] [id number] / / Description:LOAD # [id number] DATE 06/09/2020 Screw Solera Frederic Ma 6.5x40mm 4.75 Ext Tab [id number] - [id number] Implanted:Qty: 2 on 06/17/2020 by Bear Vasques MD at [facility] Screw N/A: Spine Lumbar [employer] [id number] / / Description:LOAD # [id number] DATE 06/09/2020 Screw Solera Frederic Ma 7.5x35mm 4.75 Ext Tab [id number] - [id number] Implanted:Qty: 2 on 06/17/2020 by Bear Vasques MD at [facility] N/A: Spine Lumbar [employer] [id number] / / Description:LOAD # [id number] DATE 06/09/2020 Screw Solera Frederic Ma 7.5x40mm 4.75 Ext Tab [id number] - [id number] Implanted:Qty: 1 on 06/17/2020 by Bear Vasques MD at [facility] N/A: Spine Lumbar [employer] [id number] / / Description:LOAD # [id number] DATE 06/09/2020 Set Screw Solera Perc 4.75mm [id number] - [id number] Implanted:Qty: 6 on 06/17/2020 by Bear Vasques MD at [facility] N/A: Spine Lumbar [employer]ANEK [id number] / / Description:LOAD # [id number] DATE 06/09/2020 Infuse Protein Kit Sm [id number] - [id number] Implanted:Qty: 1 on 06/17/2020 by Bear Vasques MD at [facility] N/A: Spine Lumbar [employer] SOFAMOR [employer]ANEK 05/04/2022 [id number] / / [id number] Description:Requisition: [id number] Allograft Magnifuse Pc [id number] - [id number] Implanted:Qty: 1 on 06/17/2020 by Bear Vasques MD at [facility] N/A: Spine Lumbar [employer] 04/27/2022 [id number] / [id number] / Description:Requisition: [id number] Procedures Procedure Name Priority Date/Time Associated Diagnosis Comments CBC WITH DIFFERENTIAL Routine 10/17/2024 12:10 PM INTAKE RN COMPREHENSIVE METABOLIC PANEL Routine 09/27/2024 1:19 PM INTAKE RN CBC WITH AUTODIFFERENTIAL Routine 2024 1:08 PM INTAKE RN COMPREHENSIVE METABOLIC PANEL Routine 09/27/2024 1:05 PM INTAKE RN COLONOSCOPY REPORT Routine 05/03/2023 10 :56 AM CDT from Last 3 Months or Most Recently Relevant to Health Maintenance Results * CBC WITH DIFFERENTIAL (10/17/2024 12:10 PM INTAKE RN) Blood us Koby Vinson MD HEMATOLOGY ORDERABLES Final Res ult * COMPREHENSIVE METABOLIC PANEL (09/27/2024 1:19 PM INTAKE RN) Only the most recent of2 resultswithin the time period is included. Blood us Koby Vinson MD CHEMISTRY ORDERABLES Final Resu lt * CBC WITH AUTODIFFERENTIAL (09/27/2024 1:08 PM INTAKE RN) Blood us Koby Vinson MD HEMATOLOGY ORDERABLES [...] Advance Directives For more information, please contact: [phone] Documents on File Type Date Recorded Patient Club Director Expl anation Advance Directive POA 06/11/2020 1:30 PM A dvance Directive POA * Full Code (Latest Code Status on File) Date Activated Date Inactivated Comments 06/17/2020 3:50 PM 06/20/2020 6:06 PM * Full Code Date Activated Date Inactivated Comments 06/17/2020 9:10 AM 06/17/2020 3:50 PM * Full Code Date Activated Date Inactivated Comments 06/17/2020 7:51 AM 06/17/2020 9:10 AM Care Teams Metal Rivet Machine Operator Relationship Specialty Start Date End Date Murray Bourne MD [address] [place] [address] PCP - General Family Practice 05/25/20
--- OUTSIDE RECORDS SUMMARY | 2024-12-23 19:38 | XMS_ITS | Encounter Summary ---
Author Organization [facility] Address [address] [place] [address] Care Team Providers Care Delivery Helper Name Role Phone Murray Bourne MD Primary Care Provider Encounter Details Date Type Department Care Team (Latest Contact Info) Description 08/18/2006 Outpatient Historical HIS CARD WINDER HELPER Derrick Bird MD [address] [facility] [address] [place] [address] Coronary Atherosclerosis of [place] Coronary Artery (Primary Dx) Social History Tobacco Use Types Packs/Day Years Used Date Smoking Tobacco: Never Assessed Comments Unknown Sex and Gender Information Value Date Recorded Sex Assigned at Not on file Legal Sex Female 5:09 AM BARREL PAINTER Gender Identity Not on file Sexual Orientation Not on file documented as of this encounter Plan of Treatment Upcoming Encounters Date Type Department Care Team (Late st Contact Info) Description 01/06/2025 2:00 PM CDT Office Visit [facility] Oncology and Hematology - Real [address] [facility] [address] [place] [address] Koby Vinson MD [address] [facility] [address] [place] [address] documented as of this encounter Visit Diagnoses Diagnosis Coronary atherosclerosis of [place] coronary artery- Primary documented in this encounter Care Teams Delivery Helper Relationship Specialty Start Date End Date Murray Bourne MD [address] [place] [address] PCP - General Family Practice 05/25/20 documented as of this encounter
--- OUTSIDE RECORDS SUMMARY | 2024-12-23 19:38 | XMS_ITS | Encounter Summary ---
Author Organization [facility] Address [address] [place] [address] Care Team Providers Care Manager Heavy Duty Name Role Phone Unavailable Primary Care Provider Unavailabl e Encounter Details Date Type Department Care Team (Late st Contact Info) Description 02/01/2023 Lab Requisition [facility] - Pathology Lab [address] [place] [address] Bola Arzola MD [facility] [address] [address] Illness, unspecified Social History Tobacco Use Types Packs/Day Years Used Date Smoking Tobacco: Never Assessed Comments Unknown Sex and Gender Information Value Date Recorded Sex Assigned at Not on file Legal Sex Female 5:54 AM OUTSOLE BEVELER Gender Identity Not on file Sexual Orientation [...] Report Bone Marrow Patholog y Report Case: [id number] Authorizing Provider: Bola Arzola MD Collected: 01/26/2023 09:23 AM Ordering Location: [facility] Pathology Lab Received: 02/01/2023 08:23 AM Pathologist: Chana Powers MD Specimens: A) - Bone Marrow Clot, bone marrow aspirate B) - Bone Marrow Core, right hip 02/02/2023 9:35 AM [facility] PATHOLOGY LAB Final Diagnosis Bone marrow, aspirate, clot section, and core biopsy: - Normocellular marrow with maturing trilineage hematopoiesis. - No evidence of lymphoma, high-grade myeloid neoplasm, or metastatic disease. - See description. Peripheral blood smear: - Macrocytic anemia. - See description. 02/02/2023 9:35 AM [facility] PATHOLOGY LAB Comment Immunohistochemistry is performed to assess staining cells in an architectural context: CD3 and CD20 highlight the reactive appearing lymphoid aggregates. CD34 is negative for increased blasts. CD138 is negative for increased plasma cells. 02/02/2023 9:35 AM [facility] PATHOLOG[facility] LAB Peripheral Smear Description RBC: macrocytic anemia. WBC: normal in number and morphology. Platelets: normal in number and morphology. 02/02/2023 9:35 AM [facility] PATHOLOGY LAB Bone Marrow Aspirate Differential count (200 cells): normal differential count.. Specimen quality: adequate. Spicules: many. Trilineage Hematopoiesis: present. Myeloid:Erythroid ratio: normal. Myeloid Maturation: normal. Erythroid Maturation: normal. Megakaryocyte morphology: normal size. Storage iron (by special stain): increased. Sideroblastic iron (by special stain): no ring sideroblasts. 02/02/2023 9:35 AM [facility] PATHOLOG[facility] LAB Bone Marrow Core Biopsy [...] similar to core biopsy. 02/02/2023 9:35 AM [facility] PATHOLOG[facility] LAB Flow Cytometry Summary Bone marrow, flow cytometric immunophenotypic analysis ([id number]): - No evidence of non-Hodgkin lymphoma or high-grade myeloid neoplasm. 02/02/2023 9:35 AM CDT [facility] Clinical History Macrocytic anemia. History of colon cancer. 02/02/2023 9:35 AM CDT [facility] Materials Received Received are 21 slide(s), and 3 blocks (A1; A2, B1) labeled [id number] along with a copy of the outside pathology report. [place] [address]. All original materials are returned to the referring institution, along with a copy of our final report. 02/02/2023 9:35 AM CDT [facility] Pathologist Location at [facility] 02/02/2023 9:35 AM T [facility] Disclaimer The performance characteristics of all immunohistochemical and indirect immunofluorescence stains (if any) cited in this report were determined by the Histopathology Laboratory of [facility]. Some of these tests were developed by [...] attending (teaching) pathologist. 02/02/2023 9:35 AM T [facility] Embedded Images 02/02/2023 9:35 AM CDT [facility] Pathology/Cytology BONE MARROW SPECIMEN / Unknown 01/26/2023 9:23 AM CDT 02/01/2023 8:23 AM CDT Miscellaneous samples (specimen) BONE MARROW SPECIMEN / Unknown 01/26/2023 9:23 AM CDT 02/01/2023 8:23 AM CDT Bola Arzola MD LAB - PATHOLOGY/CYTOLOGY ORDERAB LES Final Result [facility] LAB [address] [phone] documented in this encounter Visit Diagnoses Diagnosis Illness, unspecified documented in this encounter
--- OUTSIDE RECORDS SUMMARY | 2024-12-23 19:38 | XMS_ITS | Clinical Summary ---
Author Organization [facility] Address [address] [facility] [place] [address] Care Team Providers Care Hide Tanner Name Role Phone Unavailable Primary Care Provider Unavailabl e Source Comments [facility],non-owned Affiliates and Associated Physician Practices is amultiple site organization consisting of ambulatory clinics and hospital sitesin [place], [place], [place] and [place]. This disclosure is being madepursuant to the Care Everywhere program and may not contain all information available regarding this patient. 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 MANAGED MEDICARE ADV [place] [id number] AETNA MEDICARE ADV AETNA MEDICARE ADV SELF PAY NO INSURANCE Member Subscriber Plan / Payer (Ef fective for All Dates) Name:Abebe Cunningham Member ID:Not on file Relation to Subscriber:Not on file Name:ABEBE CUNNINGHAM Subscriber ID:Not on file (Home) Address: [address] [place] [address] Payer ID:Not on file Group ID:Not on file Type:Self Pay Address: [place], [place] MANAGED MEDICARE ADV MANAGED MEDICARE ADV
--- OUTSIDE RECORDS SUMMARY | 2024-12-23 19:38 | XMS_ITS | Encounter Summary ---
Author Organization [facility] Address [address] [place] [address] Care Team Providers Care Cloth Framer Name Role Phone Murray Bourne MD Primary Care Provider Reason for Visit * Reason Onset Date Comments Needs hospitalist 06/18/2020 Gave message t o TRIXIE Mak on cell phone Encounter Details Date Type Department Care Team (Late Contact Info) Description 06/18/2020 Telephone [facility] Admitting [address] [place] [address] [place] [address] [facility] [address] [place] [address] Needs hospitalist (Gave message to WATER JET OPERATOR Aubree on cell phone) Social History Tobacco Use Types Packs/Day Years Used Date Smoking Tobacco: Every Day Cigarettes Smokeless Tobacco: Never Alcohol Use Standard Drinks/Week Comments Yes 0 (1 standard drink = 0.6 oz pur e alcohol) twice a year Comments No Sex and Gender Information Value Date Recorded Sex Assigned at Not on file 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 Gender Identity Not on file Sexual Orientation [...] Description 01/06/2025 2:00 PM CDT Office Visit [facility] Oncology and Hematology - Real Kenzie Rivero [address] [address] Koby Vinson MD [address] [facility] [address] [place] [address] documented as of this encounter Visit Diagnoses Not on filedocumented in this encounter Care Teams Cloth Framer Relationship Specialty Start Date End Date Murray Bourne MD [address] [place] [address] PCP - General Family Practice 05/25/20 documented as of this encounter
--- OUTSIDE RECORDS SUMMARY | 2024-12-23 19:38 | XMS_ITS | Clinical Summary ---
Author Organization [facility] [address] Address [address] [place] [address] Care Team Providers Care Merchandise Executive Name Role Phone Murray Bourne MD Primary [...] Overview (12/08/2016): Pure hypercholesterolemia Coronary arteriosclerosis in [place] artery 01/13 Overview (12/08/2016): Coronary arteriosclerosis in [place] artery Encounters Date Type Department Care Team Description 11/12/2024 Orders Only [facility] Health Information Management [address] [place] [address] Derrick Bird MD from Last 3 Months [...] on file Legal Sex Female 2:02 AM HUMAN RESOURCES RECORDS CLERK Gender Identity Female 04/28/2020 9:32 AM CDT Sexual Orientation Straight 04/28/2020 9: 32 AM CDT Obstetrics History Last Filed Vital Signs Vital Sign Reading Time Taken Comments Blood Pressure 124/68 07/26/2024 10:13 AM HUMAN RESOURCES RECORDS CLERK Pulse 63 07/26/2024 10:13 AM HUMAN RESOURCES RECORDS CLERK Temperature - - Respiratory Rate 12 03/14/2017 11:29 AM CDT Oxygen Saturation 97% 07/26/2024 10:13 AM HUMAN RESOURCES RECORDS CLERK Inhaled Oxygen Concentration - - Weight 93.4 kg (206 lb) 07/26/2024 10:13 AM HUMAN RESOURCES RECORDS CLERK Height 170.2 cm (5' 7 ) 07/26/2024 10:13 AM HUMAN RESOURCES RECORDS CLERK Body Mass Index 32.26 07/26/2024 10:13 AM HUMAN RESOURCES RECORDS CLERK Plan of Treatment Health Maintenance Due Date [...] Months Insurance AETNA MEDICARE GOLD Care Teams Merchandise Executive Relationship Specialty Start Date End Date Murray Bourne MD [address] [facility] [address] [facility] [place] [address] PCP - General Family Practice 05/16/23
--- OUTSIDE RECORDS SUMMARY | 2024-12-23 19:38 | XMS_ITS | CONTINUITY OF CARE DOCUMENT ---
Author Name mela plaza Address Unknown Organization [facility] Address [address] [place] [address] [address] [place] [address] Phone [phone] Care Team Providers Care Mill Dresser Name Role Phone Annalisa YAÑEZ, Silvio Unavailable JOEY BOSWELL MD Unavailable INSURANCE PROVIDERS Payer name Policy type / Coverage type [place] red constitution party ID UHC MEDICARE COMPLETE HMO Other [id number]
--- OUTSIDE RECORDS SUMMARY | 2024-12-23 19:38 | XMS_ITS | Encounter Summary ---
Author Organization [facility] Address [address] [place] [address] Care Team Providers Care Range Conservationist Name Role Phone Murray Bourne MD Primary Care Provider Encounter Details Date Type Department Care Team (Latest Contact Info) Description 06/19/2008 Outpatient Historical HIS [facility] JAVIER Willis, Viktoriya Allen MD [address] [facility] [place] [address] Coronary Atherosclerosis of [place] Coronary Artery Social History Tobacco Use Types Packs/Day Years Used Date Smoking Tobacco: Never Assessed Comments Unknown Sex and Gender Information Value Date Recorded Sex Assigned at Not on file 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 Gender Identity Not on file Sexual Orientation Not on file documented as of this encounter Plan of Treatment Upcoming Encounters Date Type Department Care Team (Late st Contact Info) Description 01/06/2025 2:00 PM CDT Office Visit [facility] Oncology and Hematology - Real [address] [facility] [address] [place] [address] Koby Vinson MD [address] [facility] [address] [place] [address] documented as of this encounter Procedures Procedure Name Priority Date/Time Associated Diagnosis Comments XR CHEST PA AND LATERAL 2 VW Routine 06/19/2008 12:37 PM CDT documented in this encounter Results * XR CHEST PA AND LATERAL (06/19/2008 12:37 PM CDT) Anatomical Region Laterality Modality Chest Other 06/19/2008 12:3 7 PM CDT Narrative 06/19/2008 12:42 PM CDT [place] [address] [place], [place] [address] Admit Date: 06/19/2008 YVONNE CUNNINGHAM Sex: F Admit Prov: VIKTORIYA WILLIS Date: 1945 Primary Care Prov: CMRN: [id number] Room: XAVI N: [id number] IMAGING SERVICES Ordering Prov: N/A Accession Number: [id number] Interpretation Chest 2 views 06/19/2008. History: Coronary vascular disease. Findings: Comparison study is dated 05/23/2008. Small left pleural effusion has decreased. The left lower lobe atelectasis has resolved . No pneumothorax is seen. The cardiac silhouette is mildly enlarged. . Dictated by: ZOEY COWART 06/19/2008 12:40 Electronically signed by: ZOEY COWART 06/19/2008 12:41 Procedure Note Zoey Cowart - 06/19/2008 [place] [address] [place], [place] [address] Admit Date: 06/19/2008 YVONNE CUNNINGHAM Sex: F Admit Prov: VIKTORIYA WILLIS Date: 1945 Primary Care Prov: CMRN: [id number] Room: [place] SSN: [id number] IMAGING SERVICES Ordering Prov: N/A Interpretation Chest [...] encounter Visit Diagnoses Diagnosis Coronary atherosclerosis of [place] coronary artery documented in this encounter Care Teams Range Conservationist Relationship Specialty Start Date End Date Murray Bourne MD [address] [place] [address] PCP - General Family Practice 05/25/20 documented as of this encounter
--- OUTSIDE RECORDS SUMMARY | 2024-12-23 19:38 | XMS_ITS | Encounter Summary ---
Author Organization [facility] Address [address] [facility] [place] [address] Care Team Providers Care Senior Speech Pathologist Name Role Phone Unavailable Primary Care Provider Unavailabl e Encounter Details Date Type Department Care Team (Late st Contact Info) Description 01/26/2023 Lab Requisition [facility] - Pathology Lab [address] [place] [address] Bola Arzola MD [facility] [address] [address] Anemia in other chronic diseases classified elsewhere Social History Tobacco Use Types Packs/Day Years Used Date Smoking Tobacco: Never Assessed Comments Unknown Sex and Gender Information Value Date Recorded Sex Assigned at Not on file Legal Sex Female 5:54 AM PURE CULTURE OPERATOR Gender Identity Not on file Sexual [...] AM CDT) Case Report Flow Cytometry Case: [id number] Authorizing Provider: Bola Arzola MD Collected: 01/26/2023 09:23 AM Ordering Location: [facility] Care Pathology Lab Received: 01/26/2023 12:48 PM Pathologist: Dav Hinds MD Specimen: Bone Marrow 01/26/2023 5:16 PM CDT [facility] PATHOLOGY LAB Final Diagnosis Bone marrow, flow cytometric immunophenotypic analysis: - No evidence of non-Hodgkin lymphoma or high-grade myeloid neoplasm. - See interpretation. 01/26/2023 5:16 PM [facility] PATHOLOG[facility] Flow Cytometry Interpretation The [...] the flow cytometry specimen is reviewed for supervisor type disk quality control purposes. The bone marrow aspirate specimen shows no evidence of involvement by non-Hodgkin lymphoma or a high-grade myeloid neoplasm. Correlation with clinical findings, the concurrent bone marrow core biopsy, and relevant cytogenetic/molecu lar studies is required. 01/26/2023 5:16 PM [facility] Flow Cytometry Results Differential Result Comment Flow Cell Count /uL 21,300 Total Viability % 94.0 Lymphocytes % 17 Dim CD45 Region % 11 Monocytes % 9 Granulocytes % 63 01/26/2023 5:16 PM [facility] Reason for test Anemia in other chronic diseases classified elsewhere 01/26/2023 5:16 PM [facility] Client Specimen ID # [id number] 01/26/2023 5:16 PM [facility] Number of markers 10 were performed. A-2 Flow CD10 A-3 Flow CD13 A-5 Flow CD20 A-1 Flow CD5 A-4 Flow CD19 A-6 Flow CD33 A-7 Flow CD34 A-8 Flow CD45 A-9 [place]+CD19+ A-10 Lambda+CD19+ 01/26/2023 5:16 PM [facility] Pathologist Location at [facility] 01/26/2023 5:16 PM [facility] Disclaimer Test performed at [facility], [address] [place], [place], [address]. *The established laboratory minimum viability is 70%. [...] testing. 01/26/2023 5:16 PM CDT [facility] Embedded Images 5:16 PM CDT [facility] PATH[facility] Pathology/Cytolo gy BONE MARROW SPECIMEN / Unknown 01/26/2023 9:23 AM CDT 01/26/2023 12:48 PM CDT Bola Arzola MD LAB - PATHOLOGY/CYTOLOGY ORDERAB LES Final Result [facility] PATHOLOG[facility] LAB [address] [facility] [place] [address], [facility] [phone] documented in this encounter Visit Diagnoses Diagnosis Anemia in other chronic diseases classified elsewhere documented in this encounter
--- OUTSIDE RECORDS SUMMARY | 2024-12-23 19:38 | XMS_ITS | Encounter Summary ---
Author Organization [facility] Address [address] [facility] [address] [place] [address] Care Team Providers Care Buffet Waiter/Waitress Name Role Phone Rangel Mejia Primary Care Provider [phone] Murray Bourne MD Primary Care Provider Encounter Details Date Type Department Care Team (Late st Contact Info) Description 12/13/2016 Orders Only [facility] ProviderNeftaly MD [address] [place] [address] Social History Tobacco Use Types Packs/Day Years Used Date Smoking Tobacco: Former Cigarettes Q uit: 09/04/2007 Alcohol Use Standard Drinks/Week Comments Yes 0 (1 standard drink = 0.6 oz pur e alcohol) Comments Unknown Sex and Gender Information Value Date Recorded Sex Assigned at Not on file Legal Sex Female 2:02 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
--- OUTSIDE RECORDS SUMMARY | 2024-12-23 19:38 | XMS_ITS | Encounter Summary ---
Author Organization [facility] Address 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 Brijesh Bird MD [address] [facility] [address] [place] [address] Viktoriya Gavin MD [address] [facility] [place] [phone] Other and Unspecified Angina Pectoris Social History Tobacco Use Types Packs/Day Years Used Date Smoking Tobacco: Never Assessed Comments Unknown Sex and Gender Information Value Date Recorded Sex Assigned at Not on file 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 [place] [address] * (ABNORMAL) POC GLUCOSE (05/24/2008 5:48 AM [...] [facility] CLIA# [id number] [address] [place] [address] * (ABNORMAL) CBC WITH DIFFERENTIAL (05/24/2008 4:54 [...] LAB NEUTROPHILS 60 45 - 70 % [facility] NEUTROPHIL ABSOLUTE 3.86 1.90 - 7.00 K/uL [facility] EOSINOPHILS 2 0 - 7 % [facility] EOSINOPHIL ABSOLUTE 0.12 0.00 - 0.70 K/uL [facility] LYMPHOCYTES 27 16 - 45 % [facility] MPV 13.2(H) 9.3 - 12.4 fL [...] [facility] CLIA# [id number] [address] [place] [address] * (ABNORMAL) BASIC METABOLIC PANEL (05/24/2008 4:54 [...] and non- Americans is available on the [facility] Intranet at: [email or web address] Select: Lab Policies and Procedures Select: Reference Ranges - GFR Blood specimen (specimen) 05/24/2008 4:54 AM CDT 05/24/2008 7:30 AM CDT Viktoriya Gavin MD CHEMISTRY ORDERABLES Edite d Performing Organization Address [facility] Phone Number INTERFACE SYSTEM Refer to clinic/hospital department [facility] CLIA# [id number] [address] [place] [address] * MAGNESIUM LEVEL (05/24/2008 4:54 AM CDT) MAGNESIUM 2.2 1.5 - 2.5 mg/dL [facility] Blood specimen (specimen) 05/24/2008 4:54 AM CDT 05/24/2008 7:30 AM CDT Viktoriya Gavin MD CHEMISTRY ORDERABLES Final Result Performing Organization Address [facility] Phone Number INTERFACE SYSTEM Refer to clinic/hospital department [facility] CLIA# [id number] [address] [place] [address] * (ABNORMAL) POC GLUCOSE (05/24/2008 1:17 AM CDT) GLUCOSE POC 108(H) 65 - 99 mg/dL [facility] Venous blood specimen (specimen) 05/24/2008 1:17 AM CDT 05/24/2008 1:17 AM CDT Brijesh Bird MD POINT OF CARE TESTING Fin al Result Performing Organization Address [facility] Phone Number INTERFACE SYSTEM Refer to clinic/hospital department [facility] CLIA# [id number] [address] [place] [address] * (ABNORMAL) POC GLUCOSE (05/23/2008 8:51 PM CDT) GLUCOSE POC 145(H) 65 - 99 mg/dL [facility] COMMENT, GLU POC Notified RN [facility] Venous blood specimen (specimen) 05/23/2008 8:51 PM CDT 05/23/2008 8:51 PM CDT Brijesh Bird MD POINT OF CARE TESTING Fin al Result Performing Organization Address City/[facility] de Phone Number INTERFACE SYSTEM Refer to clinic/hospital department [facility] CLIA# [id number] [address] [place] [address] * (ABNORMAL) POC GLUCOSE (05/23/2008 4:50 PM CDT) GLUCOSE POC 121(H) 65 - 99 mg/dL [facility] Venous blood specimen (specimen) 05/23/2008 4:50 PM CDT 05/23/2008 4:50 PM CDT Brijesh Bird MD POINT OF CARE TESTING Fin al Result Performing Organization Address [facility] de Phone Number INTERFACE SYSTEM Refer to clinic/hospital department [facility] CLIA# [id number] [address] [place] [address] * (ABNORMAL) POC GLUCOSE (05/23/2008 10:06 AM CDT) GLUCOSE POC 121(H) 65 - 99 mg/dL [facility] Venous blood specimen (specimen) 05/23/2008 10:06 AM CDT 05/23/2008 10:06 AM CDT Brijesh Bird MD POINT OF CARE TESTING Fin al Result Performing Organization Address [facility] de Phone Number INTERFACE SYSTEM Refer to clinic/hospital department [facility] CLIA# [id number] [address] [place] [address] * (ABNORMAL) POC GLUCOSE (05/23/2008 5:44 AM CDT) COMMENT, GLU POC Notified RN [facility] GLUCOSE POC 122(H) 65 - 99 mg/dL [facility] Venous blood specimen (specimen) 05/23/2008 5:44 AM CDT 05/23/2008 5:44 AM CDT Brijesh Bird MD POINT OF CARE TESTING Fin al Result Performing Organization Address [facility] de Phone Number INTERFACE SYSTEM Refer to clinic/hospital department [facility] CLIA# [id number] [address] [place] [address] * XR CHEST PA AND LATERAL (05/23/2008 5:20 AM CDT) Anatomical Region Laterality Modality Chest Other 05/23/2008 5:20 AM CDT Narrative 05/23/2008 8:32 AM CDT [facility] [address] [place], [place] [address] Admit Date: 05/19/2008 LENIN ABEBE A Sex: F Admit Prov: BRIJESH BIRD Date: 1945 Primary Care Prov: CMRN: [id number] Room: [address] [place] [address] SSN: [id number] IMAGING SERVICES Ordering Prov: N/A Accession Number: [id number] Interpretation EXAM: CHEST X-RAY, PA AND LATERAL, [...] DKT Procedure Note Brijesh Dover - 05/23/2008 [facility] [address] [place], [place] [address] Admit Date: 05/19/2008 BAEBE CUNNINGHAM Sex: F Admit Prov: BRIJESH BIRD Date: 1945 Primary Care Prov: CMRN: [id number] Room: [address] [place] [address] SSN: [id number] IMAGING SERVICES Ordering Prov: N/A Interpretation EXAM: [...] LAB LYMPHOCYTES 21 16 - 45 % [facility] LYMPHOCYTE ABSOLUTE 1.62 0.70 - 4.50 [...] LAB NEUTROPHILS 66 45 - 70 % [facility] NEUTROPHIL ABSOLUTE 5.06 1.90 - 7.00 K/uL [facility] EOSINOPHILS 1 0 - 7 % [facility] EOSINOPHIL ABSOLUTE 0.11 0.00 - 0.70 K/uL [facility] Blood specimen (specimen) 05/23/2008 5:00 AM CDT 05/23/2008 6:12 AM CDT us Radha CONTI HEMATOLOGY ORDERABLES Edited Performing Organization Address [facility] de Phone Number INTERFACE SYSTEM Refer to clinic/hospital department [facility] CLIA# [id number] [address] [place] [address] * MAGNESIUM LEVEL (05/23/2008 5:00 AM CDT) MAGNESIUM 2.1 1.5 - 2.5 mg/dL [facility] Blood specimen (specimen) 05/23/2008 5:00 AM CDT 05/23/2008 6:10 AM CDT Radha CONTI CHEMISTRY ORDERABLES Final Resu lt Performing Organization Address [facility] de Phone Number INTERFACE SYSTEM Refer to clinic/hospital department [facility] CLIA# [id number] [address] [place] [address] * (ABNORMAL) BASIC METABOLIC PANEL (05/23/2008 5:00 [...] and non- Americans is available on the [facility] Intranet at: [email or web address] Select: Lab Policies and Procedures Select: Reference Ranges - GFR Blood specimen (specimen) 05/23/2008 5:00 AM CDT 05/23/2008 6:10 AM CDT Radha CONTI CHEMISTRY ORDERABLES Edited Performing Organization Address [facility] Phone Number INTERFACE SYSTEM Refer to clinic/hospital department [facility] CLIA# [id number] [address] [place] [address] * (ABNORMAL) POC GLUCOSE (05/23/2008 12:46 AM CDT) GLUCOSE POC 141(H) 65 - 99 mg/dL [facility] COMMENT, GLU POC Notified GISELL [facility] Venous blood specimen (specimen) 05/23/2008 12:46 AM CDT 05/23/2008 12:46 AM CDT Brijesh Bird MD POINT OF CARE TESTING Fin al Result Performing Organization Address [facility] Phone Number INTERFACE SYSTEM Refer to clinic/hospital department [facility] CLIA# [id number] [address] [place] [address] * (ABNORMAL) POC GLUCOSE (05/22/2008 9:09 PM CDT) GLUCOSE POC 178(H) 65 - 99 mg/dL [facility] COMMENT, GLU POC Notified RN [facility] Venous blood specimen (specimen) 05/22/2008 9:09 PM CDT 05/22/2008 9:09 PM CDT Brijesh Bird MD POINT OF CARE TESTING Fin al Result Performing Organization Address [facility] Phone Number INTERFACE SYSTEM Refer to clinic/hospital department [facility] CLIA# [id number] [address] [place] [address] * (ABNORMAL) POC GLUCOSE (05/22/2008 5:10 PM CDT) GLUCOSE POC 129(H) 65 - 99 mg/dL [facility] Venous blood specimen (specimen) 05/22/2008 5:10 PM CDT 05/22/2008 5:10 PM CDT us Brijesh Bird MD POINT OF CARE TESTING Fin al Result Performing Organization Address [facility] Phone Number INTERFACE SYSTEM Refer to clinic/hospital department [facility] CLIA# [id number] [address] [place] [address] * (ABNORMAL) POC GLUCOSE (05/22/2008 1:54 PM CDT) GLUCOSE POC 120(H) 65 - 99 mg/dL [facility] Venous blood specimen (specimen) 05/22/2008 1:54 PM CDT 05/22/2008 1:54 PM CDT us Brijesh Bird MD POINT OF CARE TESTING Fin al Result Performing Organization Address [facility] de Phone Number INTERFACE SYSTEM Refer to clinic/hospital department [facility] CLIA# [id number] [address] [place] [address] * (ABNORMAL) POC GLUCOSE (05/22/2008 11:20 AM CDT) GLUCOSE POC 120(H) 65 - 99 mg/dL [facility] Venous blood specimen (specimen) 05/22/2008 11:20 AM CDT 05/22/2008 11:20 AM CDT us Brijesh Bird MD POINT OF CARE TESTING Fin al Result Performing Organization Address [facility] de Phone Number INTERFACE SYSTEM Refer to clinic/hospital department [facility] CLIA# [id number] [address] [place] [address] * (ABNORMAL) POC GLUCOSE (05/22/2008 8:41 AM CDT) GLUCOSE POC 112(H) 65 - 99 mg/dL [facility] Venous blood specimen (specimen) 05/22/2008 8:41 AM CDT 05/22/2008 8:41 AM CDT us Brijesh Bird MD POINT OF CARE TESTING Fin al Result Performing Organization Address [facility] de Phone Number INTERFACE SYSTEM Refer to clinic/hospital department [facility] CLIA# [id number] [address] [place] [address] * XR CHEST PA OR AP (05/22/2008 8:40 AM CDT) Anatomical Region Laterality Modality Chest Other 05/22/2008 8:40 AM CDT Narrative 05/22/2008 9:36 AM CDT [facility] [address] [place], [place] [address] Admit Date: 05/19/2008 ABEBE CUNNINGHAM Sex: F Admit Prov: BRIJESH BIRD Date: 1945 Primary Care Prov: CMRN: [id number] Room: [address] [place] [address] SSN: [id number] IMAGING SERVICES Ordering Prov: N/A Accession Number: [id number] Interpretation PORTABLE SEMIERECT CHEST OF 0850 HOURS, 05/22/2008 History: Respiratory distress. Findings: All the tubes and catheters have been removed. There is no pneumothorax. The heart size is mildly enlarged. Opinion: Well-aerated lungs after tube removal. . Dictated by: KANDACE MTZ 05/22/2008 09:09 Electronically signed by: KANDACE MTZ 05/22/2008 09:35 Transcribed: 05/22/2008 09:13 SMM Procedure Note Kandace Mtz MD - 05/22/2008 [facility] [address] [place], [place] [address] Admit Date: 05/19/2008 ABEBE CUNNINGHAM Sex: F Admit Prov: BRIJESH BIRD Date: 1945 Primary Care Prov: CMRN: [id number] Room: [address] [place] [address] SSN: [id number] IMAGING SERVICES Ordering Prov: N/A Interpretation PORTABLE [...] [facility] CLIA# [id number] [address] [place] [address] * (ABNORMAL) BASIC METABOLIC PANEL (05/22/2008 4:40 [...] and non- Americans is available on the [facility] Intranet at: [email or web address] Select: Lab Policies and Procedures Select: Reference Ranges - GFR Blood specimen (specimen) 05/22/2008 4:40 AM CDT 05/22/2008 4:49 AM CDT Ary Fragoso NP CHEMISTRY ORDERABLES Edited INTERFACE SYSTEM Refer to clinic/hospital department [facility] CLIA# [id number] [address] [place] [address] * (ABNORMAL) CBC WITH DIFFERENTIAL (05/22/2008 4:40 [...] LAB EOSINOPHILS 0 0 - 7 % [facility] EOSINOPHIL ABSOLUTE 0.01 0.00 - 0.70 K/uL [facility] LYMPHOCYTES 14(L) 16 - 45 % [facility] LYMPHOCYTE ABSOLUTE 1.57 0.70 - 4.50 [...] LAB NEUTROPHILS 74(H) 45 - 70 % [facility] NEUTROPHIL ABSOLUTE 8.27(H) 1.90 - 7.00 [...] NP HEMATOLOGY ORDERABLES Edited Performing Organization Address [facility] de Phone Number INTERFACE SYSTEM Refer to clinic/hospital department [facility] CLIA# [id number] [address] [place] [address] * (ABNORMAL) POC GLUCOSE (05/22/2008 4:10 AM CDT) GLUCOSE POC 116(H) 65 - 99 mg/dL [facility] Venous blood specimen (specimen) 05/22/2008 4:10 AM CDT 05/22/2008 4:10 AM CDT Brijesh Bird MD POINT OF CARE TESTING Fin al Result Performing Organization Address [facility] Phone Number INTERFACE SYSTEM Refer to clinic/hospital department [facility] CLIA# [id number] [address] [place] [address] * (ABNORMAL) POC GLUCOSE (05/22/2008 3:18 AM CDT) GLUCOSE POC 115(H) 65 - 99 mg/dL [facility] Venous blood specimen (specimen) 05/22/2008 3:18 AM CDT 05/22/2008 3:18 AM CDT Brijesh Bird MD POINT OF CARE TESTING Fin al Result Performing Organization Address [facility] de Phone Number INTERFACE SYSTEM Refer to clinic/hospital department [facility] CLIA# [id number] [address] [place] [address] * (ABNORMAL) POC GLUCOSE (05/22/2008 2:04 AM CDT) GLUCOSE POC 136(H) 65 - 99 mg/dL [facility] Venous blood specimen (specimen) 05/22/2008 2:04 AM CDT 05/22/2008 2:04 AM CDT us Brijesh Bird MD POINT OF CARE TESTING Fin al Result Performing Organization Address [facility] Phone Number INTERFACE SYSTEM Refer to clinic/hospital department [facility] CLIA# [id number] [address] [place] [address] * (ABNORMAL) POC GLUCOSE (05/22/2008 1:01 AM CDT) GLUCOSE POC 109(H) 65 - 99 mg/dL [facility] Venous blood specimen (specimen) 05/22/2008 1:01 AM CDT 05/22/2008 1:01 AM CDT us Brijesh Bird MD POINT OF CARE TESTING Fin al Result Performing Organization Address [facility] Phone Number INTERFACE SYSTEM Refer to clinic/hospital department [facility] CLIA# [id number] [address] [place] [address] * POC GLUCOSE (05/22/2008 12:02 AM CDT) GLUCOSE POC 85 65 - 99 mg/dL [facility] Venous blood specimen (specimen) 05/22/2008 12:02 AM CDT 05/22/2008 12:02 AM CDT us Brijesh Bird MD POINT OF CARE TESTING Fin al Result Performing Organization Address [facility] de Phone Number INTERFACE SYSTEM Refer to clinic/hospital department [facility] CLIA# [id number] [address] [place] [address] * (ABNORMAL) POC GLUCOSE (05/21/2008 11:07 PM CDT) GLUCOSE POC 105(H) 65 - 99 mg/dL [facility] Venous blood specimen (specimen) 05/21/2008 11:07 PM CDT 05/21/2008 11:07 PM CDT us Brijesh Bird MD POINT OF CARE TESTING Fin al Result Performing Organization Address [facility] de Phone Number INTERFACE SYSTEM Refer to clinic/hospital department [facility] CLIA# [id number] [address] [place] [address] * POC GLUCOSE (05/21/2008 10:02 PM CDT) GLUCOSE POC 99 65 - 99 mg/dL [facility] Venous blood specimen (specimen) 05/21/2008 10:02 PM CDT 05/21/2008 10:02 PM CDT us Brijesh Bird MD POINT OF CARE TESTING Fin al Result Performing Organization Address [facility] de Phone Number INTERFACE SYSTEM Refer to clinic/hospital department [facility] CLIA# [id number] [address] [place] [address] * POC GLUCOSE (05/21/2008 9:14 PM CDT) GLUCOSE POC 93 65 - 99 mg/dL [facility] Venous blood specimen (specimen) 05/21/2008 9:14 PM CDT 05/21/2008 9:14 PM CDT us Brijesh Bird MD POINT OF CARE TESTING Fin al Result Performing Organization Address [facility] de Phone Number INTERFACE SYSTEM Refer to clinic/hospital department [facility] CLIA# [id number] [address] [place] [address] * (ABNORMAL) POC GLUCOSE (05/21/2008 8:19 PM CDT) GLUCOSE POC 112(H) 65 - 99 mg/dL [facility] Venous blood specimen (specimen) 05/21/2008 8:19 PM CDT 05/21/2008 8:19 PM CDT Brijesh Bird MD POINT OF CARE TESTING Fin al Result Performing Organization Address [facility] de Phone Number INTERFACE SYSTEM Refer to clinic/hospital department [facility] CLIA# [id number] [address] [place] [address] * (ABNORMAL) POC GLUCOSE (05/21/2008 4:28 PM CDT) GLUCOSE POC 104(H) 65 - 99 mg/dL [facility] Venous blood specimen (specimen) 05/21/2008 4:28 PM CDT 05/21/2008 4:28 PM CDT Brijesh Bird MD POINT OF CARE TESTING Fin al Result Performing Organization Address [facility] de Phone Number INTERFACE SYSTEM Refer to clinic/hospital department [facility] CLIA# [id number] [address] [place] [place] [address] * (ABNORMAL) POC GLUCOSE (05/21/2008 3:04 PM CDT) GLUCOSE POC 109(H) 65 - 99 mg/dL [facility] Venous blood specimen (specimen) 05/21/2008 3:04 PM CDT 05/21/2008 3:04 PM CDT Brijesh Bird MD POINT OF CARE TESTING Fin al Result Performing Organization Address [facility] de Phone Number INTERFACE SYSTEM Refer to clinic/hospital department [facility] CLIA# [id number] [address] [place] [address] * (ABNORMAL) POC GLUCOSE (05/21/2008 1:48 PM CDT) GLUCOSE POC 124(H) 65 - 99 mg/dL [facility] Venous blood specimen (specimen) 05/21/2008 1:48 PM CDT 05/21/2008 1:48 PM CDT Brijesh Bird MD POINT OF CARE TESTING Fin al Result Performing Organization Address [facility] de Phone Number INTERFACE SYSTEM Refer to clinic/hospital department [facility] CLIA# [id number] [address] [place] [address] * (ABNORMAL) BLOOD GAS ARTERIAL (05/21/2008 1:45 [...] 05/21/2008 1:52 PM CDT us Ary Fragoso SCOOP MACHINE OPERATOR ABG ORDERABLES Final Result Performing Organization Address [facility] de Phone Number INTERFACE SYSTEM Refer to clinic/hospital department [facility] CLIA# [id number] [address] [place] [address] * (ABNORMAL) POC GLUCOSE (05/21/2008 1:10 PM CDT) GLUCOSE POC 123(H) 65 - 99 mg/dL [facility] Venous blood specimen (specimen) 05/21/2008 1:10 PM CDT 05/21/2008 1:10 PM CDT Brijesh Bird MD POINT OF CARE TESTING Fin al Result Performing Organization Address [facility] de Phone Number INTERFACE SYSTEM Refer to clinic/hospital department [facility] CLIA# [id number] [address] [place] [address] * (ABNORMAL) CVR ONLY, CKMB/CK (05/21/2008 12:30 PM CDT) CKMB 80.9(AA) <=3.8 ng/mL [facility] Comment: Persistent abnormal result CKMB INTERP See Below [facility] Comment: Elevated CKMB,consistent with Myocardial Injury CK 1,451(H) 10 - 145 U/L [facility] CARDIAC RELATIVE INDEX 5.6(H) <=4.0 [facility] Blood specimen (specimen) 05/21/2008 12:30 PM CDT 05/21/2008 12:32 PM CDT Viktoriya Gavin MD CHEMISTRY ORDERABLES Edite d Performing Organization Address [facility] de Phone Number INTERFACE SYSTEM Refer to clinic/hospital department [facility] CLIA# [id number] [address] [place] [address] * (ABNORMAL) POC GLUCOSE (05/21/2008 12:28 PM CDT) GLUCOSE POC 106(H) 65 - 99 mg/dL [facility] Venous blood specimen (specimen) 05/21/2008 12:28 PM CDT 05/21/2008 12:28 PM CDT Brijesh Bird MD POINT OF CARE TESTING Fin al Result Performing Organization Address [facility] Co de Phone Number INTERFACE SYSTEM Refer to clinic/hospital department [facility] CLIA# [id number] [address] [place] [address] * (ABNORMAL) POC GLUCOSE (05/21/2008 11:16 AM CDT) GLUCOSE POC 137(H) 65 - 99 mg/dL [facility] Venous blood specimen (specimen) 05/21/2008 11:16 AM CDT 05/21/2008 11:16 AM CDT Brijesh Bird MD POINT OF CARE TESTING Fin al Result Performing Organization Address [facility] de Phone Number INTERFACE SYSTEM Refer to clinic/hospital department [facility] CLIA# [id number] [address] [place] [address] * (ABNORMAL) POC RT, BLOOD GASES (05/21/2008 [...] ORDERABLES Rosenda l Result Performing Organization Address City/[facility] de Phone Number INTERFACE SYSTEM Refer to clinic/hospital department [facility] CLIA# [id number] [address] [place] [address] * (ABNORMAL) POC GLUCOSE (05/21/2008 10:18 AM CDT) GLUCOSE POC 148(H) 65 - 99 mg/dL [facility] Venous blood specimen (specimen) 05/21/2008 10:18 AM CDT 05/21/2008 10:18 AM CDT us Brijesh Bird MD POINT OF CARE TESTING Fin al Result Performing Organization Address [facility] de Phone Number INTERFACE SYSTEM Refer to clinic/hospital department [facility] CLIA# [id number] [address] [place] [address] * (ABNORMAL) POC GLUCOSE (05/21/2008 9:09 AM CDT) GLUCOSE POC 143(H) 65 - 99 mg/dL [facility] Venous blood specimen (specimen) 05/21/2008 9:09 AM CDT 05/21/2008 9:09 AM CDT us Brijesh Bird MD POINT OF CARE TESTING Fin al Result Performing Organization Address City/[facility] de Phone Number INTERFACE SYSTEM Refer to clinic/hospital department [facility] CLIA# [id number] [address] [place] [place] [address] * (ABNORMAL) POC GLUCOSE (05/21/2008 8:24 AM CDT) GLUCOSE POC 145(H) 65 - 99 mg/dL [facility] Venous blood specimen (specimen) 05/21/2008 8:24 AM CDT 05/21/2008 8:24 AM CDT us Brijesh Bird MD POINT OF CARE TESTING Fin al Result Performing Organization Address [facility] de Phone Number INTERFACE SYSTEM Refer to clinic/hospital department [facility] CLIA# [id number] [address] [place] [address] * (ABNORMAL) BLOOD GAS ARTERIAL (05/21/2008 8:00 AM CDT) O2 CONC ARTERIAL 55% [facility] [...] ORDERABLES Final Resu lt Performing Organization Address [facility] de Phone Number INTERFACE SYSTEM Refer to clinic/hospital department [facility] CLIA# [id number] [address] [place] [address] * (ABNORMAL) POC RT, BLOOD GASES (05/21/2008 [...] [facility] OXYGEN [facility]DE SIMV/[facility] PH ARTERIAL 7.29(L) 7.35 - 7.45 [...] [facility] CLIA# [id number] [address] [place] [address] * (ABNORMAL) POC GLUCOSE (05/21/2008 6:08 AM CDT) GLUCOSE POC 133(H) 65 - 99 mg/dL [facility] Venous blood specimen (specimen) 05/21/2008 6:08 AM CDT 05/21/2008 6:08 AM CDT Brijesh Bird MD POINT OF CARE TESTING Fin al Result INTERFACE SYSTEM Refer to clinic/hospital department [facility] CLIA# [id number] [address] [place], [place] [address] * (ABNORMAL) POC RT, BLOOD GASES (05/21/2008 [...] [facility] CLIA# [id number] [address] [place] [address] * XR CHEST PA OR AP (05/21/2008 5:20 AM CDT) Anatomical Region Laterality Modality Chest Other 05/21/2008 5:20 AM CDT Narrative 05/21/2008 9:31 AM CDT [facility] [address] [place], [place] [address] Admit Date: 05/19/2008 ABEBE [place] Sex: F Admit Prov: BRIJESH BIRD Date: 1945 Primary Care Prov: CMRN: [id number] Room: [address] [place] [address] SSN: [id number] IMAGING SERVICES Ordering Prov: N/A Accession Number: [id number] Interpretation CHEST SINGLE VIEW 05/21/08 AT 0530 [...] Procedure Note Jocelyn Rasmussen MD - 05/21/2008 [facility] [address] [place], [place] [address] Admit Date: 05/19/2008 ABEBE [place] Sex: F Admit Prov: BRIJESH BIRD Date: 1945 Primary Care Prov: CMRN: [id number] Room: [address] [place] [address] SSN: [id number] IMAGING SERVICES Ordering Prov: N/A Interpretation CHEST [...] TESTING Fin al Result Performing Organization Address City/[facility] Co de Phone Number INTERFACE SYSTEM Refer to clinic/hospital department [facility] CLIA# [id number] [address] [place] [address] * (ABNORMAL) PT AND APTT (05/21/2008 4:00 AM CDT) INR 1.2(H) 0.9 - 1.1 [facility] Comment: INR Therapeutic Range: Adult: 2.0 - 3.0 for pulmonary embolism or prophylaxis against venous thrombosis or systemic embolization. 2.0 - 3.0 for patients with tissue heart valves. 2.5 - 3.5 for patients with mechanical heart valves or post SC. Pediatric (12 years and under): 1.5 - [...] HEMATOLOGY ORDERABLES Edit ed Performing Organization Address City/[facility]/ZIP Co de Phone Number INTERFACE SYSTEM Refer to clinic/hospital department [facility] CLIA# [id number] [address] [place] [address] * (ABNORMAL) COMPREHENSIVE METABOLIC PANEL (05/21/2008 4:00 [...] and non- Americans is available on the [facility] Intranet at: [email or web address] Select: Lab Policies and Procedures Select: Reference Ranges - GFR Blood specimen (specimen) 05/21/2008 4:00 AM CDT 05/21/2008 4:21 AM CDT Viktoriya Gavin MD CHEMISTRY ORDERABLES Edite d Performing Organization Address [facility] Phone Number INTERFACE SYSTEM Refer to clinic/hospital department [facility] CLIA# [id number] [address] [place] [address] * (ABNORMAL) CVR ONLY, CKMB/CK (05/21/2008 4:00 AM CDT) CKMB 137.4(AA) <=3.8 ng/mL [facility] Comment: Persistent abnormal result CKMB INTERP See Below [facility] Comment: Elevated CKMB,consistent with Myocardial Injury CK 1,974(H) 10 - 145 U/L [facility] CARDIAC RELATIVE INDEX 7.0(H) <=4.0 [facility] Blood specimen (specimen) 05/21/2008 4:00 AM CDT 05/21/2008 4:21 AM CDT Viktoriya Gavin MD CHEMISTRY ORDERABLES Edite d Performing Organization Address [facility] Phone Number INTERFACE SYSTEM Refer to clinic/hospital department [facility] CLIA# [id number] [address] [place] [address] * (ABNORMAL) CBC WITH DIFFERENTIAL (05/21/2008 4:00 AM CDT) HEMATOCRIT 38.4 35.5 - 44.0 % [facility] [...] LAB NEUTROPHILS 86(H) 45 - 70 % [facility] NEUTROPHIL ABSOLUTE 12.44(H) 1.90 - 7.00 K/uL [facility] EOSINOPHILS 0 0 - 7 % [facility] EOSINOPHIL ABSOLUTE 0.00 0.00 - 0.70 K/uL [facility] LYMPHOCYTES 4(L) 16 - 45 % [facility] LYMPHOCYTE ABSOLUTE 0.62(L) 0.70 - 4.50 [...] [facility] CLIA# [id number] [address] [place] [address] * (ABNORMAL) POC GLUCOSE (05/21/2008 2:50 AM CDT) GLUCOSE POC 155(H) 65 - 99 mg/dL [facility] Venous blood specimen (specimen) 05/21/2008 2:50 AM CDT 05/21/2008 2:50 AM CDT Brijesh Bird MD POINT OF CARE TESTING Fin al Result Performing Organization Address City/[facility] de Phone Number INTERFACE SYSTEM Refer to clinic/hospital department [facility] CLIA# [id number] [address] [place] [address] * (ABNORMAL) POC GLUCOSE (05/21/2008 1:10 AM CDT) GLUCOSE POC 159(H) 65 - 99 mg/dL [facility] Venous blood specimen (specimen) 05/21/2008 1:10 AM CDT 05/21/2008 1:10 AM CDT Brijesh Bird MD POINT OF CARE TESTING Fin al Result Performing Organization Address [facility] de Phone Number INTERFACE SYSTEM Refer to clinic/hospital department [facility] CLIA# [id number] [address] [place] [address] * (ABNORMAL) POC GLUCOSE (05/20/2008 11:57 PM CDT) GLUCOSE POC 158(H) 65 - 99 mg/dL [facility] Venous blood specimen (specimen) 05/20/2008 11:57 PM CDT 05/20/2008 11:57 PM CDT Brijesh Bird MD POINT OF CARE TESTING Fin al Result Performing Organization Address City/[facility] de Phone Number INTERFACE SYSTEM Refer to clinic/hospital department [facility] CLIA# [id number] [address] [place] [address] * (ABNORMAL) POC GLUCOSE (05/20/2008 10:21 PM CDT) GLUCOSE POC 156(H) 65 - 99 mg/dL [facility] Venous blood specimen (specimen) 05/20/2008 10:21 PM CDT 05/20/2008 10:21 PM CDT Brijesh Bird MD POINT OF CARE TESTING Fin al Result Performing Organization Address [facility] de Phone Number INTERFACE SYSTEM Refer to clinic/hospital department [facility] CLIA# [id number] [address] [place] [address] * (ABNORMAL) POC GLUCOSE (05/20/2008 9:24 PM CDT) GLUCOSE POC 145(H) 65 - 99 mg/dL [facility] Venous blood specimen (specimen) 05/20/2008 9:24 PM CDT 05/20/2008 9:24 PM CDT Brijesh Bird MD POINT OF CARE TESTING Fin al Result Performing Organization Address [facility] de Phone Number INTERFACE SYSTEM Refer to clinic/hospital department [facility] CLIA# [id number] [address] [place] [address] * (ABNORMAL) POC GLUCOSE (05/20/2008 8:11 PM CDT) GLUCOSE POC 148(H) 65 - 99 mg/dL [facility] Venous blood specimen (specimen) 05/20/2008 8:11 PM CDT 05/20/2008 8:11 PM CDT Brijesh Bird MD POINT OF CARE TESTING Fin al Result Performing Organization Address City/[facility] de Phone Number INTERFACE SYSTEM Refer to clinic/hospital department [facility] CLIA# [id number] [address] [place] [address] * (ABNORMAL) CVR ONLY, CKMB/CK (05/20/2008 7:25 PM CDT) [facility] CKMB 166.9(AA) <=3.8 ng/mL [facility] Comment: Persistent abnormal result CKMB INTERP See Below [facility] Comment: Elevated CKMB,consistent with Myocardial Injury CK 2,169(H) 10 - 145 U/L [facility] CARDIAC RELATIVE INDEX 7.7(H) <=4.0 [facility] Blood specimen (specimen) 05/20/2008 7:25 PM CDT 05/20/2008 7:31 PM CDT us Viktoriya Gavin MD CHEMISTRY ORDERABLES Edite d Performing Organization Address [facility] de Phone Number INTERFACE SYSTEM Refer to clinic/hospital department [facility] CLIA# [id number] [address] [place] [address] * (ABNORMAL) POC GLUCOSE (05/20/2008 7:14 PM CDT) [facility] GLUCOSE POC 154(H) 65 - 99 mg/dL [facility] Venous blood specimen (specimen) 05/20/2008 7:14 PM CDT 05/20/2008 7:14 PM CDT us Brijesh Bird MD POINT OF CARE TESTING Fin al Result Performing Organization Address [facility] de Phone Number INTERFACE SYSTEM Refer to clinic/hospital department [facility] CLIA# [id number] [address] [place] [address] * MAGNESIUM LEVEL (05/20/2008 6:40 PM CDT) MAGNESIUM 2.4 1.5 - 2.5 mg/dL [facility] Blood specimen (specimen) 05/20/2008 6:40 PM CDT 05/20/2008 6:48 PM CDT Viktoriya Gavin MD CHEMISTRY ORDERABLES Final Result Performing Organization Address City/[facility] Phone Number INTERFACE SYSTEM Refer to clinic/hospital department [facility] CLIA# [id number] [address] [place] [address] * POTASSIUM LEVEL (05/20/2008 6:40 PM CDT) [facility] Signature POTASSIUM 4.9 3.5 - 4.9 mmol/L [facility] Blood specimen (specimen) 05/20/2008 6:40 PM CDT 05/20/2008 6:48 PM CDT Viktoriya Gavin MD CHEMISTRY ORDERABLES Final Result Performing Organization Address [facility] Phone Number INTERFACE SYSTEM Refer to clinic/hospital department [facility] CLIA# [id number] [address] [place] [address] * (ABNORMAL) POC GLUCOSE (05/20/2008 6:06 PM CDT) [facility] GLUCOSE POC 146(H) 65 - 99 mg/dL [facility] Venous blood specimen (specimen) 05/20/2008 6:06 PM CDT 05/20/2008 6:06 PM CDT Brijesh Bird MD POINT OF CARE TESTING Fin al Result Performing Organization Address City/[facility] de Phone Number INTERFACE SYSTEM Refer to clinic/hospital department [facility] CLIA# [id number] [address] [place] [address] * (ABNORMAL) POC GLUCOSE (05/20/2008 4:46 PM CDT) GLUCOSE POC 143(H) 65 - 99 mg/dL [facility] Venous blood specimen (specimen) 05/20/2008 4:46 PM CDT 05/20/2008 4:46 PM CDT us Brijesh Bird MD POINT OF CARE TESTING Fin al Result Performing Organization Address [facility] Phone Number INTERFACE SYSTEM Refer to clinic/hospital department [facility] CLIA# [id number] [address] [place] [address] * POTASSIUM LEVEL (05/20/2008 4:25 PM CDT) [facility] Signature POTASSIUM 4.5 3.5 - 4.9 mmol/L [facility] Blood specimen (specimen) 05/20/2008 4:25 PM CDT 05/20/2008 4:35 PM CDT Viktoriya Gavin MD CHEMISTRY ORDERABLES Final Result Performing Organization Address [facility] Phone Number INTERFACE SYSTEM Refer to clinic/hospital department [facility] CLIA# [id number] [address] [place] [address] * (ABNORMAL) POC GLUCOSE (05/20/2008 3:51 PM CDT) GLUCOSE POC 146(H) 65 - 99 mg/dL [facility] Venous blood specimen (specimen) 05/20/2008 3:51 PM CDT 05/20/2008 3:51 PM CDT us Brijesh Bird MD POINT OF CARE TESTING Fin al Result Performing Organization Address [facility] de Phone Number INTERFACE SYSTEM Refer to clinic/hospital department [facility] CLIA# [id number] [address] [place] [address] * (ABNORMAL) POC GLUCOSE (05/20/2008 3:16 PM CDT) GLUCOSE POC 149(H) 65 - 99 mg/dL [facility] Venous blood specimen (specimen) 05/20/2008 3:16 PM CDT 05/20/2008 3:16 PM CDT us Brijesh Bird MD POINT OF CARE TESTING Fin al Result INTERFACE SYSTEM Refer to clinic/hospital department [facility] CLIA# [id number] [address] [place] [address] * (ABNORMAL) POC RT, BLOOD GASES (05/20/2008 [...] [facility] OXYGEN MODE SIMV [facility] PCO2 VENOUS 29(L) 38 - 50 [...] ORDERABLES Rosenda l Result Performing Organization Address [facility] de Phone Number INTERFACE SYSTEM Refer to clinic/hospital department [facility] CLIA# [id number] [address] [place] [address] * (ABNORMAL) POC GLUCOSE (05/20/2008 12:39 PM CDT) GLUCOSE POC 121(H) 65 - 99 mg/dL [facility] Venous blood specimen (specimen) 05/20/2008 12:39 PM CDT 05/20/2008 12:39 PM CDT Brijesh Bird MD POINT OF CARE TESTING Fin al Result Performing Organization Address [facility] Phone Number INTERFACE SYSTEM Refer to clinic/hospital department [facility] CLIA# [id number] [address] [place] [address] * (ABNORMAL) POC GLUCOSE (05/20/2008 11:22 AM CDT) GLUCOSE POC 120(H) 65 - 99 mg/dL [facility] Venous blood specimen (specimen) 05/20/2008 11:22 AM CDT 05/20/2008 11:22 AM CDT Brijesh Bird MD POINT OF CARE TESTING Fin al Result Performing Organization Address [facility] de Phone Number INTERFACE SYSTEM Refer to clinic/hospital department [facility] CLIA# [id number] [address] [place] [address] * (ABNORMAL) POC RT, BLOOD GASES (05/20/2008 11:21 AM CDT) Pathologist [facility] [id number] [facility] OXYGEN MODE SIMV/[facility] PH ARTERIAL 7.41 7.35 - 7.45 [...] [facility] CLIA# [id number] [address] [place] [address] * (ABNORMAL) PT AND APTT (05/20/2008 11:20 [...] patients with mechanical heart valves or post SC. Pediatric (12 years and under): 1.5 - [...] [facility] CLIA# [id number] [address] [place] [address] * (ABNORMAL) MAGNESIUM LEVEL (05/20/2008 11:20 AM CDT) MAGNESIUM 2.7(H) 1.5 - 2.5 mg/dL [facility] Blood specimen (specimen) 05/20/2008 11:20 AM CDT 05/20/2008 11:25 AM CDT Viktoriya Gavin MD CHEMISTRY ORDERABLES Final Result Performing Organization Address [facility] de Phone Number INTERFACE SYSTEM Refer to clinic/hospital department [facility] CLIA# [id number] [address] [place] [address] * (ABNORMAL) CVR ONLY, CKMB/CK (05/20/2008 11:20 AM CDT) Pathologist [facility] CKMB 12.5(AA) <=3.8 ng/mL [facility] Comment: Results called to yenifer at 05/20/08 11:54 AM and read back verified. CKMB INTERP See Below [facility] Comment: Elevated CKMB,consistent with Myocardial Injury. CK 121 10 - 145 U/L [facility] CARDIAC RELATIVE INDEX N/A <=4.0 [facility] Blood specimen (specimen) 05/20/2008 11:20 AM CDT 05/20/2008 11:25 AM CDT Viktoriya Gavin MD CHEMISTRY ORDERABLES Edite d Performing Organization Address [facility] de Phone Number INTERFACE SYSTEM Refer to clinic/hospital department [facility] CLIA# [id number] [address] [place] [address] * (ABNORMAL) BASIC METABOLIC PANEL (05/20/2008 11:20 [...] and non- Americans is available on the [facility] Intranet at: [email or web address] Select: Lab Policies and Procedures Select: Reference Ranges - GFR Blood specimen (specimen) 05/20/2008 11:20 AM CDT 05/20/2008 11:25 AM CDT Viktoriya Gavin MD CHEMISTRY ORDERABLES Edite d INTERFACE SYSTEM Refer to clinic/hospital department [facility] CLIA# [id number] [address] [place] [address] * (ABNORMAL) CBC WITH DIFFERENTIAL (05/20/2008 11:20 [...] LAB LYMPHOCYTES 19 16 - 45 % [facility] LYMPHOCYTE ABSOLUTE 1.37 0.70 - 4.50 [...] LAB NEUTROPHILS 78(H) 45 - 70 % [facility] NEUTROPHIL ABSOLUTE 5.76 1.90 - 7.00 K/uL [facility] EOSINOPHILS 2 0 - 7 % [facility] EOSINOPHIL ABSOLUTE 0.11 0.00 - 0.70 K/uL [facility] Blood specimen (specimen) 05/20/2008 11:20 AM CDT 05/20/2008 11:25 AM CDT Viktoriya Gavin MD HEMATOLOGY ORDERABLES Edit ed INTERFACE SYSTEM Refer to clinic/hospital department [facility] CLIA# [id number] [address] [place] [address] * XR CHEST PA OR AP (05/20/2008 11:00 AM CDT) Anatomical Region Laterality Modality Chest Other 05/20/2008 11:0 0 AM CDT Narrative 05/20/2008 11:45 AM CDT [facility] [address] [place], [place] [address] Admit Date: 05/19/2008 A[place]BE [place] Sex: F Admit Prov: BRIJESH BIRD Date: 1945 Primary Care Prov: CMRN: [id number] Room: [address] [place] [address] SSN: [id number] IMAGING SERVICES Ordering Prov: N/A Accession Number: [id number] Interpretation Portable AP supine chest of 1120 hours. History: Chest pain. Lines: Since the previous exam of May 19, the patient has undergone median sternotomy. The chest tubes are in expected position. The endotracheal tube tip is at the thoracic inlet. The [place]-Ambrosio catheter tip is overlying the main pulmonary artery. There is a mild hazy atelectatic change in the left lung. There is no pneumothorax. The heart size is mildly enlarged. Opinion: Mild cardiomegaly and mild left atelectasis . Dictated by: KANDACE MTZ 05/20/2008 11:42 Electronically signed by: KANDACE MTZ 05/20/2008 11:43 Procedure Note Kandace Mtz MD - 05/20/2008 [facility] [address] [place], [place] [address] Admit Date: 05/19/2008 ABEBE [place] Sex: F Admit Prov: BRIJESH BIRD Date: 1945 Primary Care Prov: CMRN: [id number] Room: [address] [place] [address] 1 SSN: [id number] IMAGING SERVICES Ordering Prov: N/A Interpretation Portable AP supine chest of 1120 hours. History: Chest pain. Lines: Since the previous exam of May 19, the patient hasundergone median sternotomy. The chest tubes are in expected position. The endotracheal tube tip is at the thoracic inlet. The Mount Carmel-Ganzcatheter tip is overlying the main pulmonary artery. [...] 10:48 AM CDT 05/20/2008 10:48 AM CDT Brijesh Bird MD CHEMISTRY ORDERABLES Rosenda chavez Result Performing Organization Address [facility] Co de Phone Number INTERFACE SYSTEM Refer to clinic/hospital department [facility] CLIA# [id number] [address] [place] [address] * (ABNORMAL) POC RT, BLOOD GASES (05/20/2008 [...] [facility] CLIA# [id number] [address] [place] [address] * (ABNORMAL) POC RT, BLOOD GASES (05/20/2008 10:05 AM CDT) PH ARTERIAL 7.48(H) 7.35 - 7.45 [facility] BASE EXCESS ABG 1.1 -2.0 - [...] [facility] CLIA# [id number] [address] [place] [address] * (ABNORMAL) POC RT, BLOOD GASES (05/20/2008 [...] LAB PH ARTERIAL 7.42 7.35 - 7.45 [facility] PH TEMP CORRECT 7.48 [facility] SODIUM POC 134(L) 135 - 145 mmol/L [facility] Blood specimen (specimen) 05/20/2008 9:35 AM CDT 05/20/2008 9:35 AM CDT us Brijesh Bird MD CHEMISTRY ORDERABLES Rosenda chavez Result INTERFACE SYSTEM Refer to clinic/hospital department [facility] CLIA# [id number] [address] [place] [address] * (ABNORMAL) POC RT, BLOOD GASES (05/20/2008 [...] ORDERABLES Rosenda chavez Result Performing Organization Address City/State/[facility] Co de Phone Number INTERFACE SYSTEM Refer to clinic/hospital department [facility] CLIA# [id number] [address] [place], [place] [address] * (ABNORMAL) POC RT, BLOOD GASES (05/20/2008 9:02 AM CDT) [facility] IONIZED, WHOLE BLOOD 4.45(L) 4.76 [...] [facility] CLIA# [id number] [address] [address] [place] [address] * (ABNORMAL) POC RT, BLOOD GASES (05/20/2008 [...] [facility] CLIA# [id number] [address] [place] [address] * (ABNORMAL) POC RT, BLOOD GASES (05/20/2008 [...] ORDERABLES Rosenda chavez Result Performing Organization Address City/State/[facility] Co de Phone Number INTERFACE SYSTEM Refer to clinic/hospital department [facility] CLIA# [id number] [address] [facility] [place] [address] * TYPE & CROSS ADDITIONAL PACKED CELLS (05/20/2008 6:30 AM CDT) Specimen of unknown material (specimen) 05/20/2008 6:30 AM CDT 05/20/2008 6:40 AM CDT Narrative INTERFACE SYSTEM - 05/20/2008 6:41 AM CDT please keep 2 units ahead for surgery us Viktoriya Gavin MD BLOOD BANK ORDERABLES Rosenda l Result Performing Organization Address City/[facility] Co de Phone Number INTERFACE SYSTEM Refer to clinic/hospital department * XR CHEST PA AND LATERAL (05/19/2008 10:01 PM CDT) Anatomical Region Laterality Modality Chest Other 05/19/2008 10:0 1 PM CDT Narrative 05/20/2008 7:14 AM CDT [facility] [address] [place], [place] [address] Admit Date: 05/19/2008 ABEBE CUNNINGHAM Sex: F Admit Prov: BRIJESH IBRD Date: 1945 Primary Care Prov: CMRN: [id number] Room: [place] [address] SSN: [id number] IMAGING SERVICES Ordering Prov: N/A Accession Number: [id number] Interpretation CHEST, PA AND LATERAL, 05/19/2008 History: Angina, chest pain, preoperative examination. Findings: No infiltrate, pleural effusion or pneumothorax is present. The heart is enlarged. Mediastinum and pulmonary vascularity are normal. Impression: No active pulmonary disease. . Dictated by: NATE PEOPLES 05/19/2008 22:17 Electronically signed by: NATE PEOPLES 05/20/2008 07:13 Transcribed: 05/19/2008 22:32 SJ Procedure Note Nate Peoples MD - 05/20/2008 [facility] [address], [place] [address] Admit Date: 05/19/2008 ABEBE CUNNINGHAM Sex: F Admit Prov: BRIJESH BIRD Date: 1945 Primary Care Prov: CMRN: [id number] Room: [place] [address] SSN: [id number] IMAGING SERVICES Ordering Prov: N/A Interpretation CHEST, [...] [facility] CLIA# [id number] [address] [place] [address] * (ABNORMAL) URINALYSIS (05/19/2008 10:00 PM CDT) PH UA 5.0 5.0 - 8.0 [facility] WBC UA 13(H) 0 - 5 /HPF [facility] KETONES UA Negative Negative [facility] CLARITY UA Slt. Cloudy(A) Clear [facility] BILIRUBIN UA Negative Negative [facility] PROTEIN UA Negative Negative [facility] LEUKOCYTE ESTERASE UA 3+(A) Negative [facility] RBC UA 3 0 - 4 /HPF [facility] SPECIFIC GRAVITY UA 1.007 1.001 - 1.035 [facility] GLUCOSE UA Negative Negative [facility] BLOOD UA Negative Negative [facility] COLOR UA Colorless [facility] NITRITE UA Negative Negative [facility] EPITHELIAL CELLS, URINE Many /HPF [facility] UROBILINOGEN UA <1 <=1 mg/dL [facility] 05/19/2008 10:0 0 PM CDT 05/19/2008 10:31 PM CDT us Viktoriya Gavin MD URINE ORDERABLES Final Res ult Performing Organization Address [facility] Co de Phone Number INTERFACE SYSTEM Refer to clinic/hospital department [facility] CLIA# [id number] [address] [place] [address] * URINALYSIS WITH REFLEX CULTURE (05/19/2008 10:00 [...] [facility] CLIA# [id number] [address] [place] [address] * CBC WITH DIFFERENTIAL (05/19/2008 4:15 PM [...] LAB EOSINOPHILS 3 0 - 7 % [facility] EOSINOPHIL ABSOLUTE 0.16 0.00 - 0.70 K/uL [facility] LYMPHOCYTES 38 16 - 45 % [facility] LYMPHOCYTE ABSOLUTE 1.78 0.70 - 4.50 [...] LAB NEUTROPHILS 53 45 - 70 % [facility] Blood specimen (specimen) 05/19/2008 4:15 PM CDT 05/19/2008 4:32 PM CDT us Viktoriya Gavin MD HEMATOLOGY ORDERABLES Edit ed Performing Organization Address [facility] de Phone Number INTERFACE SYSTEM Refer to clinic/hospital department [facility] CLIA# [id number] [address] [place] [address] * POC ACTIVATED CLOTTING TIME (05/19/2008 2:25 PM CDT) ACT POC 121 Seconds [facility] Comment: ansiNote sheath pull range change effective 02/24/2006. ACT value for sheath pull at [facility] has been established to be < or = to 140. (See also Nursing Procedures for sheath pull in related nursing areas) Blood specimen (specimen) 05/19/2008 2:25 PM CDT 05/19/2008 2:25 PM CDT us Brijesh Bird MD POINT OF CARE TESTING Fin al Result Performing Organization Address [facility] de Phone Number INTERFACE SYSTEM Refer to clinic/hospital department [facility] CLIA# [id number] [address] [place] [address] * (ABNORMAL) COMPREHENSIVE METABOLIC PANEL (05/19/2008 1:25 [...] and non- Americans is available on the [facility] Intranet at: [email or web address] Select: Lab Policies and Procedures Select: Reference Ranges - GFR Blood specimen (specimen) 05/19/2008 1:25 PM CDT 05/19/2008 1:39 PM CDT us Brijesh Bird MD CHEMISTRY ORDERABLES Edit ed Performing Organization Address [facility] Phone Number INTERFACE SYSTEM Refer to clinic/hospital department [facility] CLIA# [id number] [address] [place] [address] * POC ACTIVATED CLOTTING TIME (05/19/2008 1:19 PM CDT) ACT POC 161 Seconds [facility] Comment: Note sheath pull range change effective 02/24/2006. ACT value for sheath pull at [facility] has been established to be < or = to 140. (See also Nursing Procedures for sheath pull in related nursing areas) Blood specimen (specimen) 05/19/2008 1:19 PM CDT 05/19/2008 1:19 PM CDT Brijesh Bird MD POINT OF CARE TESTING Fin al Result Performing Organization Address [facility] Phone Number INTERFACE SYSTEM Refer to clinic/hospital department [facility] CLIA# [id number] [address] [place] [address] * TYPE AND CROSSMATCH (05/19/2008 12:48 PM CDT) HISTORY CHECK No Historical ABO/Rh [facility] SPECIMEN LIFE 3 days from drawdate [facility] ABO/RH TYPE A Negative [facility] ANTIBODY SCREEN Negative [facility] Blood specimen (specimen) 05/19/2008 12:48 PM CDT us Viktoriya Gavin MD BLOOD BANK ORDERABLES Edit ed Performing Organization Address [facility] de Phone Number INTERFACE SYSTEM Refer to clinic/hospital department [facility] CLIA# [id number] [address] [place] [address] * CL CORONARY ANGIOGRAM (05/19/2008 11:59 AM CDT) Narrative INTERFACE SYSTEM - 05/19/2008 11:59 AM CDT [facility] [address] [place] [address] [email or web address] Cardiac Catheterization Comprehensive Report Patient: Abebe Cunningham Study ID: [id number] Gender: F : 1945 Age: 63 years Race: 1 Room: Bed: Height: 67 in ( 170.2 cm ) Study Date: May 19, 2008 Patient status: Outpatient Weight: 222 lb ( 100.9 kg ) Access. #: [id number] POC: Attending MD: Kamini Performing MD: Kmaini Indications and History: INDICATIONS: Stable angina. The [...] 11:40:08 Procedure Note Provider, Historical - 05/19/2008 [address] [place] [address] [email or web address] Cardiac Catheterization Comprehensive Report Patient: Abebe Cunningham Study ID: [id number] Gender: F : 1945 Age: 63 years Race: 1 Room: Bed: Height: 67 in ( 170.2 cm ) Study Date: May 19, 2008 Patient status: Outpatient Weight: 222 lb ( 100.9 kg ) Access. #: [id number] POC: Attending MD: Kamini Performing MD: Kamini [...] ORDERABLES Fi nal Result Performing Organization Address [facility] Phone Number INTERFACE SYSTEM Refer to clinic/hospital department * POC ACTIVATED CLOTTING TIME (05/19/2008 11:53 AM CDT) ACT POC 192 Seconds [facility] Comment: Note sheath pull range change effective 02/24/2006. ACT value for sheath pull at [facility] has been established to be < or = to 140. (See also Nursing Procedures for sheath pull in related nursing areas) Blood specimen (specimen) 05/19/2008 11:53 AM CDT 05/19/2008 11:53 AM CDT us Brijesh Bird MD POINT OF CARE TESTING Fin al Result Performing Organization Address [facility] Phone Number INTERFACE SYSTEM Refer to clinic/hospital department [facility] CLIA# [id number] [address] [place] [address] * POC ACTIVATED CLOTTING TIME (05/19/2008 10:34 AM CDT) ACT POC 228 Seconds [facility] Comment: Note sheath pull range change effective 02/24/2006. ACT value for sheath pull at [facility] has been established to be < or = to 140. (See also Nursing Procedures for sheath pull in related nursing areas) Blood specimen (specimen) 05/19/2008 10:34 AM CDT 05/19/2008 10:34 AM CDT Brijesh Bird MD POINT OF CARE TESTING Fin al Result Performing Organization Address [facility] Phone Number INTERFACE SYSTEM Refer to clinic/hospital department [facility] CLIA# [id number] [address] [place] [address] documented in this encounter Visit Diagnoses Diagnosis Other and unspecified angina pectoris documented in this encounter Care Teams Sap Analyst Relationship Specialty Start Date End Date Murray Bourne MD [address] [place] [id number] PCP - General Family Practice 05/25/20 documented as of this encounter
--- OUTSIDE RECORDS SUMMARY | 2024-12-23 19:38 | XMS_ITS | Referral Summary ---
Author Organization [facility] [address] Address [address] [place] [address] Care Team Providers Care Bake Room Worker Name Role Phone Murray Bourne MD Primary Care Provider Encounters Date Type Department Care Team Description 11/12/2024 Orders Only [facility] Health Information Management [address] [place] [id number] Derrick Bird MD from Last 3 Months [...] Overview (12/08/2016): Pure hypercholesterolemia Coronary arteriosclerosis in [place] artery 01/13 Overview (12/08/2016): Coronary arteriosclerosis in [place] artery Social History Tobacco Use Types Packs/Day [...] on file Legal Sex Female 2:02 AM BECK TENDER Gender Identity Female 04/28/2020 9:32 AM CDT Sexual Orientation Straight 04/28/2020 9: 32 AM CDT Last Filed Vital Signs Vital Sign Reading Time Taken Comments Blood Pressure 124/68 07/26/2024 10:13 AM BECK TENDER Pulse 63 07/26/2024 10:13 AM BECK TENDER Temperature - - Respiratory Rate 12 03/14/2017 11:29 AM CDT Oxygen Saturation 97% 07/26/2024 10:13 AM BECK TENDER Inhaled Oxygen Concentration - - Weight 93.4 kg (206 lb) 07/26/2024 10:13 AM BECK TENDER Height 170.2 cm (5' 7 ) 07/26/2024 10:13 AM BECK TENDER Body Mass Index 32.26 07/26/2024 10:13 AM BECK TENDER Plan of Treatment Not on file Procedures Procedure Name Priority Date/Time Associated Diagnosis Comments GI - RESULT 11/12/2024 from Last 3 Months Results * GI - RESULT (11/12/2024) Anatomical Region Laterality Modality Other us Derrick Bird MD Edited R esult - Final from Last 3 Months Insurance [facility] MEDICARE GOLD Care Teams Bake Room Worker Relationship Specialty Start Date End Date Murray Bourne MD [address] [facility] [address] [address] PCP - General Family Practice 05/16/23
--- NOTE | 2024-12-23 20:33 | ED.HEATRA ---
HPI - Head Injury General Chief complaint: Head Injury Stated complaint: Fell backwards off porch-hit head-known Aneurism Time Seen by Provider: 12/23/24 19:11 History of Present Illness HPI Narrative: 79-year-old female presenting to the emergency department after mechanical fall from her porch. Patient has a history of AFib/a flutter, hypertension, hyperlipidemia. Patient states that she fell backwards onto her tailbone and hit her head on the porch and potentially got tripped up in the hose on her porch while watering her plants. Denies any loss consciousness. Her daughter is present at bedside and encouraged her to go the ER for evaluation. Remote history of a potential cerebral aneurysm although recent imaging studies and brain MRA showed no findings. Patient takes daily aspirin but no other anticoagulants. Patient denies any headache or vision change. No chest pain shortness a breath. She was otherwise in her normal state of health recently. Related Data Home Medications ?Medication ?Instructions ?Recorded ?Confirmed ?Last Taken ?Type amlodipine 5 mg tablet 5 mg PO DAILY 09/21/19 11/22/24 11/11/24 History aspirin 81 mg chewable tablet 81 mg PO DAILY 09/21/19 11/22/24 11/11/24 History metoprolol tartrate 25 mg tablet 12.5 mg PO BID 09/21/19 11/22/24 11/11/24 History omega-3 fatty acids-fish oil 340 1 cap PO DAILY 09/21/19 11/22/24 11/11/24 History mg-1,000 mg capsule atorvastatin 40 mg tablet 40 mg PO QHS 07/01/21 11/22/24 11/11/24 History acetaminophen 650 mg tablet 650 mg PO BID PRN Pain 10/02/24 11/22/24 Unknown History cholecalciferol (vitamin D3) 50 50 mcg PO DAILY 10/02/24 11/22/24 11/11/24 History mcg (2,000 unit) capsule gabapentin 300 mg capsule 300 mg PO TID PRN pain 10/02/24 11/22/24 11/11/24 History biotin 10,000 mcg chewable tablet 10,000 mcg PO DAILY 11/11/24 11/22/24 11/11/24 History (Hair, Skin and Nails (biotin)) Allergies Allergy/AdvReac Type Severity Reaction Status Date / Time No Known Allergies Allergy Verified 12/23/24 18:17 Review of Systems Review of Systems: As reviewed above in HPI [facility] Past Medical History Medical History AVM (arteriovenous malformation) of small bowel, acquired Atrial flutter, paroxysmal Hemangioma of bone Cerebral aneurysm Foreign body ingestion Occult blood in stools Displaced fracture of fifth metatarsal bone, left foot, initial encounter for open fracture Traumatic ecchymosis of right elbow Chronic low back pain Synostosis (cranial) Heart attack Restless legs syndrome History of stroke 03/2021 Middle cerebral artery aneurysm Coronary artery disease Acute cerebrovascular accident (CVA) 03/2021 B12 deficiency Non-STEMI (non-ST elevated myocardial infarction) September 2019 with left heart catheterization demonstrating modest left main disease, total occlusion of LAD and right coronary artery proximally, modest 40-50% stenosis of the 1st obtuse marginal branch of the circumflex, remaining patency of GARCIA to LAD, patency of saphenous vein graft to RCA, occlusion of the proximal aspect of the vein graft to the 1st obtuse marginal branch circumflex, mild left ventricular systolic dysfunction with posterior basal akinesis with good ejection fraction with medical therapy recommended. 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 She has 2 daughters and 1 son. Patient used to work for [employer]. The patient has been smoking for approximately 25-30 years. She quit at 1 point and then restarted. She is currently smoking 1/3 of a pack per day. Carlene Loja, her daughter, is her durable power business attorney for healthcare. The patient desires to be a full code. Caffeine-daily Smoking packs per day: 0.5 Smoking cigarettes per day: 10.0 Years smoked: 56 Smoking pack-years: 28.00 Smoking status: Current every day smoker Tobacco type: cigarettes Second hand tobacco smoke exposure: Yes Additional smoking assessment comments: patient states she smokes 2 citgarretttes/day Alcohol intake: current Drinks per week: 7 Alcohol use details: 1 shot per night Substance use: current Substance use type: marijuana Other substance usage details: Marijuana once a week for pain Last use: 04/30/19 Do You Feel Safe in your Home?: Yes Lack of Transportation: No Lack of Food: Never True Current Housing: I Do Not Have Housing Concerned About Future Housing: No Difficulty Paying Gas/Electric Bills: No Difficulty Paying for Meds: No Currently Unemployed: No Education: High School Diploma/GED Difficulty w/ Childcare or Family Care: No Living arrangements: alone Occupation/Education: retired Gender identity (if verbalized by the patient): Female Sexual Orientation (if Verbalized by the Patient): Straight or Heterosexual Spiritual care concerns: No Agree to blood products: Yes Exam Narrative: GENERAL: [Well-appearing, well-nourished, and in no acute distress.] HEAD: [Normocephalic, atraumatic.] EYES: [PERRLA and EOMI.] ENT: Nares clear, no rhinorrhea or epistaxis. Mucous membranes moist. NECK: Supple. C-collar in place by EMS CHEST: [Clear to auscultation. No respiratory distress.] HEART: [Regular rate and rhythm]. No murmur heard. [Normal peripheral pulses.] ABDOMEN: [Soft, nondistended], [nontender], [No rigidity or guarding] EXTREMITIES: Normal range of motion. [No edema.] SKIN: Warm, dry, no rash. NEURO: [No focal deficits]. Alert and oriented [x3.] PSYCH: [Normal mood and affect.] Course Vital Signs Vital signs: Vital Signs Temperature 36.7 C 12/23/24 18:53 Pulse Rate 77 12/23/24 18:53 Respiratory Rate 18 12/23/24 18:53 Blood Pressure 137/54 L 12/23/24 18:53 Pulse Oximetry 97 12/23/24 18:53 Oxygen Delivery Room Air 12/23/24 18:53 Temperature 36.7 C 12/23/24 18:53 Pulse Rate 77 12/23/24 18:53 Respiratory Rate 18 12/23/24 18:53 Blood Pressure 137/54 L 12/23/24 18:53 Pulse Oximetry 97 12/23/24 18:53 Oxygen Delivery Room Air 12/23/24 18:53 MDM - Head Injury MDM Narrative Medical decision making narrative: 79-year-old female presenting after a closed head injury and fall on her porch. Fall sound mechanical in nature she got tangled up in the hose watering her plants. Patient presents with a C-collar by EMS. No cervical spinal tenderness on my examination. No neurological deficits. No signs of significant head injury. No bleeding. Patient has no complaints at this time. CT scan of the head and cervical spine were obtained as well as x-rays of lumbar spine. Patient has normal reassuring vital signs and unremarkable neurological assessment. Head CT shows no acute intracranial process. CT cervical spine shows no fracture or traumatic malalignment. Lumbar x-ray shows no fractures or traumatic malalignment in the lumbar spine. C-collar was removed. Patient ambulatory here in the emergency department. Patient is safe for discharge home and given return precautions. Medical Records Attestation: I reviewed the patient's medical records. Imaging Data Attestation: I personally reviewed and interpreted this imaging study as follows: My impression: Impressions Head CT 12/23/24 19:31 IMPRESSION: No acute intracranial process. Lumbar Spine X-Ray 12/23/24 19:38 IMPRESSION: No acute fracture or traumatic malalignment detected in the lumbar spine. Cervical Spine CT 12/23/24 19:45 IMPRESSION: No acute fracture or traumatic malalignment in the cervical spine. Discharge Plan Discharge Clinical Impression: CHI (closed head injury), Accident due to mechanical fall without injury Patient Disposition: Home Condition: Stable Instructions: Antibiotic Form Additional Instructions: Follow-up with regular doctor. Return with any new or worsening concerns at any time. Take Tylenol and/or ibuprofen for any headache or musculoskeletal pain. Patient Language: Nigerien Prescriptions: No Action atorvastatin 40 mg tablet 40 mg PO QHS cholecalciferol (vitamin D3) 50 mcg (2,000 unit) capsule 50 mcg PO DAILY gabapentin 300 mg capsule 300 mg PO TID PRN (Reason: pain) ferrous sulfate 325 mg (65 mg iron) tablet 325 mg PO BID Qty: 180 1RF amlodipine 5 mg Tablet 5 mg PO DAILY Patient Comments: . aspirin 81 mg Tablet,Chewable 81 mg PO DAILY metoprolol tartrate 25 mg tablet 12.5 mg PO BID omega-3 fatty acids-fish oil 340-1,000 mg Capsule 1 cap PO DAILY nitroglycerin 0.4 mg tablet, sublingual 0.4 mg SUBLINGUAL DIRECTED PRN (Reason: chest pain) Qty: 25 3RF Rx Instructions: 1 tablet sublingual Q 5 minutes x3 doses p.r.n. chest pain If no relief call 911 pantoprazole 40 mg Tablet,Delayed Release (Dr/Ec) 40 mg PO DAILY Qty: 30 3RF acetaminophen 650 mg tablet 650 mg PO BID PRN (Reason: Pain) Patient Comments: .... Hair, Skin and Nails (biotin) 10,000 mcg tablet,chewable 10,000 mcg PO DAILY paroxetine HCl 20 mg tablet 20 mg PO DAILY Qty: 90 1RF lisinopril 10 mg tablet 10 mg PO DAILY Qty: 90 1RF furosemide [Lasix] 20 mg tablet 20 mg PO QAM Qty: 90 1RF folic acid 400 mcg tablet 0.4 mg PO BID Qty: 180 1RF mecobalamin (vitamin B12) 1,000 mcg tablet,disintegrating 1,000 mcg sublingual DAILY Qty: 90 1RF Rx Instructions: place tablet under tongue and allow to dissolve for at least30 secs before swallowing tramadol 50 mg tablet 50 mg PO Q8H PRN (Reason: pain) Qty: 90 1RF potassium chloride 10 mEq tablet extended release See Rx Instructions .ROUTE .COMPLEX Qty: 90 1RF Dose Instruction: TAKE 1 TABLET BY MOUTH EVERY DAY Rx Instructions: TAKE 1 TABLET BY MOUTH EVERY DAY bupropion HCl [Wellbutrin SR] 150 mg tablet sustained-release 12 hr 150 mg PO BID Qty: 180 1RF Follow-up/Referrals: Gerson Bourne MD [Primary Care Provider] - Time of Disposition: 20:42
[2024-12-23 20:59] VITALS: BP 133/55; PULSE 66; RESP 17; O2SAT 94
== END 2024-12-23 21:00 | disposition home or self-care (01) ==
PROVIDERS: Emergency Provider Student in an Organized Health Care Education/Training Program; PCP Family Medicine
DX: I48.91 Unspecified atrial fibrillation (principal); I48.92 Unspecified atrial flutter; I10 Essential (primary) hypertension; I25.2 Old myocardial infarction; I25.10 Atherosclerotic heart disease of native coronary artery without angina pectoris; E78.5 Hyperlipidemia, unspecified; E53.8 Deficiency of other specified B group vitamins; K55.20 Angiodysplasia of colon without hemorrhage; G25.81 Restless legs syndrome; M19.90 Unspecified osteoarthritis, unspecified site; F41.9 Anxiety disorder, unspecified; F32.A Depression, unspecified; F17.210 Nicotine dependence, cigarettes, uncomplicated; Z95.1 Presence of aortocoronary bypass graft; Z86.73 Personal history of transient ischemic attack (TIA), and cerebral infarction without residual deficits; Z90.49 Acquired absence of other specified parts of digestive tract; Z98.49 Cataract extraction status, unspecified eye; Z79.82 Long term (current) use of aspirin; Z79.899 Other long term (current) drug therapy; W18.09XA Striking against other object with subsequent fall, initial encounter
CPT/HCPCS: 70450; 72100; 72125; 99284

== ENCOUNTER 2024-12-27 12:58 | Outpatient (CLI) | payer MEDICARE, SELFPAY ==
--- NOTE | ~2024-12-27 | DEXA_ITS ---
Bone Density Report Name: ABEBE PHELPS Age: 79 Sex: Female Ethnicity: White Date of : 1945 Indication: osteopenia; height loss; cancer; Referring Provider: DOV MALAGON Study: Bone densitometry was performed. Exam Date: December 27, 2024 Accession number: [id number] Bone Density: Region BMD T-score Z-score Classification AP Spine(L1, L2) 0.904 -0.7 1.7 Normal Femoral Neck (Left) 0.506 -3.1 -0.9 Osteoporosis Total Hip (Left) 0.794 -1.2 0.7 Osteopenia Femoral Neck (Right) 0.546 -2.7 -0.5 Osteoporosis Total Hip (Right) 0.800 -1.2 0.8 Osteopenia Total Hip Mean 0.797 -1.2 0.8 Osteopenia World Health Organization criteria for BMD impression classify patients as: Normal (T-score at or above -1.0), Osteopenia (T-score between -1.0 and -2.5), or Osteoporosis (T-score at or below -2.5). 10-year Fracture Risk: FRAX not reported because: Some T-score for Spine Total or Hip Total or Femoral Neck at or below -2.5 Previous Exams: Region Exam Age BMD T-score BMD Change BMD Change Date g/cm2 vs Baseline vs Previous AP Spine (L1-L2) 12/27/2024 79 0.904 -0.7 -0.045 (-4.8%) -0.045 (-4.8%) 12/27/2021 76 0.950 -0.3 Total Hip(Left) 12/27/2024 79 0.794 -1.2 -0.027 (-3.3%) -0.027 (-3.3%) 12/27/2021 76 0.821 -1.0 Total Hip(Right) 12/27/2024 79 0.800 -1.2 0.009 (1.1%) 0.009 (1.1%) 12/27/2021 76 0.791 -1.2 *Denotes significance at 95% confidence level, LSC for AP Spine = 0.022 g/cm2, LSC for Total Hip = 0.027 g/cm2 Clinical Information Provided by Patient: Smokes Has used the following medications: Vitamin D, Calcium Has the following medical conditions: Cancer Patient maximum height was 68 Menopause Age: 52 No regular weight bearing exercise Does not regularly consume dairy products Drinks caffeinated beverages Onset of menses at age 18 Number of children 3 Impression: The patient has osteoporosis, based on the Left Femoral Neck T-score. The patient has risk factors, including: smoking. The BMD for the AP Spine (L1-L2) decreased, changing by -4.8% since the last DXA exam. The BMD for the Total Hip(Left) decreased, changing by -3.3% since the last DXA exam. Discussion: INCREASED RISK OF FRACTURE. BONE DENSITY IS UNDESIRABLY LOW AT ONE OR MORE SKELETAL SITES, CONSISTENT WITH POSTMENOPAUSAL OSTEOPOROSIS. This patient's lowest T-score meets the World Health Organization's (WHO) criteria for osteoporosis at one or more sites (T-score -2.5 or below). In untreated patients, the risk of osteoporotic fracture increases approximately two-fold for each 1.0 SD decrease in T-score. Low bone density is not the only risk factor for fracture; also consider factors such as patient's age, frailty or poor health, risk of falling, risk of injury, previous osteoporotic fracture, family history of osteoporosis, cigarette smoking, low body weight, etc. Not everyone with low bone mineral density has osteoporosis; osteomalacia and other metabolic bone disorders should also be considered. Patients who have osteoporosis should be evaluated for specific diseases and conditions (secondary causes) that may cause or contribute to bone loss. The [place] Association of Clinical Endocrinologists (AACE) and National Osteoporosis Foundation (NOF) recommend pharmacologic intervention for all postmenopausal women whose T-score is in this range. The patient should follow a healthful lifestyle (good nutrition with adequate calcium and vitamin D, and appropriate weight-bearing exercise). Follow-Up: Consider a repeat BMD and Vertebral Fracture Assessment (VFA) exam in 2 years or sooner if medically necessary, to reassess this patient's status. Reported by: MICHEAL on 12/27/2024 1:39:00 PM. Reviewed, dictated and finalized at location AColin CON[facility]
--- OUTSIDE RECORDS SUMMARY | 2024-12-27 13:03 | XMS_ITS | Encounter Summary ---
Author Organization [facility] Address [address] [place] [address] Care Team Providers Care Optician Apprentice Dispensing Name Role Phone Murray Bourne MD Primary Care Provider Encounter Details Date Type Department Care Team (Latest Contact Info) Description 06/19/2008 Outpatient Historical [facility] J[facility]IER Willis, Viktoriya Allen MD [address] [facility] [place] [address] Coronary Atherosclerosis of [place] Coronary Artery Social History Tobacco Use Types Packs/Day Years Used Date Smoking Tobacco: Never Assessed Comments Unknown Sex and Gender Information Value Date Recorded Sex Assigned at Not on file 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 Gender Identity Not on file Sexual Orientation Not on file documented as of this encounter Plan of Treatment Upcoming Encounters Date Type Department Care Team (Late st Contact Info) Description 01/06/2025 2:00 PM CDT Office Visit [facility] Oncology and Hematology - Real [address] [facility] [facility] [address] [place] [address] Koby Vinson MD [address] [facility] [address] [place] [address] documented as of this encounter Procedures Procedure Name Priority Date/Time Associated Diagnosis Comments XR CHEST PA AND LATERAL 2 VW Routine 06/19/2008 12:37 PM CDT documented in this encounter Results * XR CHEST PA AND LATERAL (06/19/2008 12:37 PM CDT) Anatomical Region Laterality Modality Chest Other 06/19/2008 12:3 7 PM CDT Narrative 06/19/2008 12:42 PM CDT [address] [address] [place] [address] Admit Date: 06/19/2008 YVONNE CUNNINGHAM Sex: F Admit Prov: VIKTORIYA WILLIS Date: 1945 Primary Care Prov: CMRN: [id number] Room: XAVI N: [id number] IMAGING SERVICES Ordering Prov: N/A Accession Number: [id number] Interpretation Chest 2 views 06/19/2008. History: Coronary vascular disease. Findings: Comparison study is dated 05/23/2008. Small left pleural effusion has decreased. The left lower lobe atelectasis has resolved . No pneumothorax is seen. The cardiac silhouette is mildly enlarged. . Dictated by: ZOEY COWART 06/19/2008 12:40 Electronically signed by: ZOEY COWART 06/19/2008 12:41 Procedure Note Zoey Cowart - 06/19/2008 [address] [address] [place], [place] [address] Admit Date: 06/19/2008 YVONNE CUNNINGHAM Sex: F Admit Prov: VIKTORIYA WILLIS Date: 1945 Primary Care Prov: CMRN: [id number] Room: [place] SSN: [id number] IMAGING SERVICES Ordering Prov: N/A Interpretation Chest [...] encounter Visit Diagnoses Diagnosis Coronary atherosclerosis of [place] coronary artery documented in this encounter Care Teams Optician Apprentice Dispensing Relationship Specialty Start Date End Date Murray Bourne MD [address] [place] [phone] PCP - General Family Practice 05/25/20 documented as of this encounter
--- OUTSIDE RECORDS SUMMARY | 2024-12-27 13:04 | XMS_ITS | Clinical Summary ---
Author Organization [facility] [address] Address [address] [place] [address] Care Team Providers Care Vision Specialist Name Role Phone Murray Bourne MD Primary [...] total) by mouth daily 05/01/20 23 Active atorvastatin (LIPITOR) 40 mg tablet TAKE [...] MOUTH 90 tablet 2 10/29/[address] (PROTONIX) 40 mg EC tablet TAKE 1 TABLET BY MOUTH EVERY DAY 90 tablet 3 12/26/[address] (PROTONIX) 40 mg EC tablet TAKE 1 TABLET BY MOUTH EVERY DAY 90 tablet 3 12/26/19 24 025 Discontinued Active Problems Problem Noted Date Diagnosed Date 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 Atrial flutter 02/02/2023 S/P CABG (coronary artery bypass graft) 03/14/20 17 Pure hypercholesterolemia 01/13/2015 Overview (12/08/2016): Pure hypercholesterolemia Coronary arteriosclerosis in [place] artery 01/13 Overview (12/08/2016): Coronary arteriosclerosis in [place] artery Encounters Date Type Department Care Team Description 11/12/2024 Orders Only [facility] Health Information Management [address] [place] [address] Derrick Bird MD from Last 3 Months [...] on file 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 Gender Identity Female 04/28/2020 9:32 AM CDT Sexual Orientation Straight 04/28/2020 9: 32 AM CDT Obstetrics History Last Filed Vital Signs Vital Sign Reading Time Taken Comments Blood Pressure 124/68 07/26/2024 10:13 AM [employer]ICATION [employer]NALS INTELL[employer] Pulse 63 07/26/2024 10:13 AM [employer]NALS INTELLIGENCE Temperature - - Respiratory Rate 12 03/14/2017 11:29 AM CDT Oxygen Saturation 97% 07/26/2024 10:13 AM [employer]NALS INTELL[employer] Inhaled Oxygen Concentration - - Weight 93.4 kg (206 lb) 07/26/2024 10:13 AM [employer]NALS INTELL[employer] Height 170.2 cm (5' 7 ) 07/26/2024 10:13 AM COMM[employer]ICATION [employer]NALS INTELL[employer] Body Mass Index 32.26 07/26/2024 10:13 AM COMM[employer]ICATION [employer]NALS INTELLIGENCE Plan of Treatment Health Maintenance Due Date Last Done Comments Depression Screening 1945 Fall Risk Assessment 1945 Hepatitis C Screening 1945 Osteoporosis Screening-Bone Density Scan 1945 DTaP/Tdap/Td Vaccine (1 - Tdap) 1958 Hepatitis B Screening 1965 Pneumococcal vaccine 65+ (1 of 2 - PCV) 1966 Zoster Vaccine (1 of 2) 1997 Well Visit 65+ 02/15/2012 Influenza Vaccine (Season Ended) 2025 06/14/20 18 Procedures Procedure Name Priority Date/Time Associated Diagnosis Comments GI - RESULT 11/12/2024 from Last 3 Months Results * GI - RESULT (11/12/2024) Anatomical Region Laterality Modality Other us Derrick Bird MD Edited R esult - Final from Last 3 Months Insurance [employer] MEDICARE GOLD Care Teams Vision Specialist Relationship Specialty Start Date End Date Murray Bourne MD [address] [place] [address] [place] [address] PCP - General Family Practice 05/16/23
--- OUTSIDE RECORDS SUMMARY | 2024-12-27 13:04 | XMS_ITS | Clinical Summary ---
Author Organization [facility] Address [address] [place] [address] Phone Care Team Providers Care Guard Manager Name Role Phone Murray Bourne MD Primary [...] bypass graft) 03/14/20 17 Coronary arteriosclerosis in [place] artery 01/13 Overview (06/19/2020): Coronary arteriosclerosis in [place] artery Pure hypercholesterolemia 01/13/2015 Overview (06/19/2020): Pure hypercholesterolemia Encounters Date Type Department Care Team Description 12/03/2024 External Device Data STL ABSTRACTION Provider, Abstract 11/20/2024 External Device Data [facility]L ABSTRACTION Provider, Abstract 11/14/2024 Abstract [facility] Oncology and Hematology [facility] [address] [place] [address] Koby Vinson MD 11/09/2024 External Device Data ST[place] ABSTRACTION Provider, Abstract 11/08/2024 External Device Data [place] ABSTRACTION Provider, Abstract 11/06/2024 External Device Data ST[place] ABSTRACTION Provider, Abstract 10/28/2024 2:30 PM STRAP BUCKLER Office Visit [facility] Oncology and Hematology [facility] [address] [place] [phone] Koby Vinson MD Iron deficiency anemia, unspecified iron deficiency anemia type (Primary Dx) 10/21/2024 Orders Only [facility] Oncology and Hematology [facility] [address] [place] [phone] Koby Vinson MD 10/21/2024 Abstract [facility] Oncology and Hematology - Real [address] [place] [phone] Koby Vinson MD 10/18/2024 Abstract [facility] Oncology and Hematology - Real [address] [place] [address] Koby Vinson MD 10/15/2024 Telephone [facility] Oncology and Hematology - Real [address] [place] [phone] Koby Vinson MD Lab Results (Low hem. ) 10/15/2024 Orders Only [facility] Oncology and Hematology - Real [facility] [address] [place] [phone] Koby Vinson MD Chronic anemia (Primary Dx) 10/01/2024 External Device Data STL ABSTRACTION Provider, Abstract 10/01/2024 Orders Only [facility] Oncology and Hematology - Real [address] [place] [address] Koby Vinson MD from Last 3 Months [...] on file Legal Sex Female 5:09 AM STRAP BUCKLER Gender Identity Not on file Sexual Orientation Not on file Last Filed Vital Signs Vital Sign Reading Time Taken Comments Blood Pressure 132/77 10/28/2024 2:37 PM STRAP BUCKLER Pulse 60 10/28/2024 2:37 PM STRAP BUCKLER Temperature 36.1 C (97 F) 10/28/2024 2:37 PM STRAP BUCKLER Respiratory Rate 15 10/28/2024 2:37 PM STRAP BUCKLER Oxygen Saturation 94% 10/28/2024 2:37 PM STRAP BUCKLER Inhaled Oxygen Concentration - - Weight 89.9 kg (198 lb 3.2 oz) 10/28/2024 2:37 P M STRAP BUCKLER Height 170.2 cm (5' 7 ) 09/08/2022 3:24 PM STRAP BUCKLER Body Mass Index 31.04 09/08/2022 3:24 PM STRAP BUCKLER Plan of Treatment Upcoming Encounters Date Type Department Care Team (Late st Contact Info) Description 01/06/2025 2:00 PM CDT Office Visit [facility] Oncology and Hematology - Real [address] [facility] [address] [place] [address] Koby Vinson MD [address] [facility] [address] [place] [address] Health Maintenance Due Date Last [...] years Discontinued Medical Devices Implanted Type Area Tank Car Reconditioner Device Identifier Shelf Expiration Date Model / Serial / Lot Filler Bone Stimulan Paste 5cc W/Beads 620-005 - [id number] Implanted:Qty: 1 on 06/17/2020 by Bear Vasques MD at [facility] Biological N/A: Spine Lumbar [employer] 10/04/2022 620-005 / / [id number] Description:BRADEN [id number] Hemostatic Surgiflo 8ml W/Thrombin 2994 - [id number] Implanted:Qty: 1 on 06/17/2020 by Bear Vasques MD at [facility] Hemostatic N/A: Spine Lumbar [employer] 06/03/2021 2994 / / [id number] Tad Cdh Solera Ccm 4.13s10im Capped [id number] - [id number] Implanted:Qty: 1 on 06/17/2020 by Bear Vasques MD at [facility] Tad N/A: Spine Lumbar [employer] SO[employer]AMOR [employer]ANEK [id number] / / Description:BRADEN [id number] Tad Cdh Solera Ccm 4.78r43ry Capped [id number] - [id number] Implanted:Qty: 1 on 06/17/2020 by Bear Vasques MD at [facility] Tad N/A: Spine Lumbar [employer]ANE[employer] [id number] / / Description:LOAD # [id number] DATE 06/09/2020 Screw Solera Frederic Ma 6.5x45mm 4.75 Ext Tab [id number] - [id number] Implanted:Qty: 1 on 06/17/2020 by Bear Vasques MD at [facility] Screw N/A: Spine Lumbar [employer] [id number] / / Description:LOAD # [id number] DATE 06/09/2020 Screw Solera Frederic Ma 6.5x40mm 4.75 Ext Tab [id number] - [id number] Implanted:Qty: 2 on 06/17/2020 by Bear Vasques MD at [facility] Screw N/A: Spine Lumbar [employer] [id number] / / Description:LOAD # [id number] DATE 06/09/2020 Screw Solera Frederic Ma 7.5x35mm 4.75 Ext Tab [id number] - [id number] Implanted:Qty: 2 on 06/17/2020 by Bear Vasques MD at [facility] N/A: Spine Lumbar [employer] [id number] / / Description:LOAD # [id number] DATE 06/09/2020 Screw Solera Frederic Ma 7.5x40mm 4.75 Ext Tab [id number] - [id number] Implanted:Qty: 1 on 06/17/2020 by Bear Vasques MD at [facility] N/A: Spine Lumbar [employer] [id number] / / Description:LOAD # [id number] DATE 06/09/2020 Set Screw Solera Perc 4.75mm [id number] - [id number] Implanted:Qty: 6 on 06/17/2020 by Bear Vasques MD at [facility] N/A: Spine Lumbar [employer]K [id number] / / Description:LOAD # [id number] DATE 06/09/2020 Infuse Protein Kit Sm [id number] - [id number] Implanted:Qty: 1 on 06/17/2020 by Bear Vasques MD at [facility] N/A: Spine Lumbar [employer] 05/04/2022 [id number] / / [id number] Description:Requisition: [id number] Allograft Magnifuse Pc [id number] - [id number] Implanted:Qty: 1 on 06/17/2020 by Bear Vasques MD at [facility] N/A: Spine Lumbar [employer] 04/27/2022 [id number] / [id number] / Description:Requisition: [id number] Procedures Procedure Name Priority Date/Time Associated Diagnosis Comments CBC WITH DIFFERENTIAL Routine 10/17/2024 12:10 PM STRAP BUCKLER COLONOSCOPY REPORT Routine 05/03/2023 10:56 AM CDT from Last 3 Months or Most Recently Relevant to Health Maintenance Results * CBC WITH DIFFERENTIAL (10/17/2024 12:10 PM STRAP BUCKLER) Blood us Koby Vinson MD HEMATOLOGY ORDERABLES Final Res ult * COLONOSCOPY REPORT (05/03/2023 10:56 AM CDT) Koby Vinson MD GI PROCEDURE ORDERABLES Final R esult from Last 3 Months or Most Recently Relevant to Health Maintenance Insurance RX [employer] RX Member Subscriber Plan / Payer (Ef fective 2019-Present) Name:Nicky Cunninghamalcides Glez Relation to Subscriber:Self Name:Yvonne Cunningham [place] Payer ID:Not on file Group ID:[id number] Type:RX Medicare Part D Address: [address] RX AETNA Commercial AETNA [facility] Advance Directives For more information, please contact: [phone] Documents on File Type Date Recorded Patient Heel Seat Filler Expl anation Advance Directive POA 06/11/2020 1:30 PM A dvance Directive POA * Full Code (Latest Code Status on File) Date Activated Date Inactivated Comments 06/17/2020 3:50 PM 06/20/2020 6:06 PM * Full Code Date Activated Date Inactivated Comments 06/17/2020 9:10 AM 06/17/2020 3:50 PM * Full Code Date Activated Date Inactivated Comments 06/17/2020 7:51 AM 06/17/2020 9:10 AM Care Teams Guard Manager Relationship Specialty Start Date End Date Murray Bourne MD [address] [place] [address] PCP - General Family Practice 05/25/20
--- OUTSIDE RECORDS SUMMARY | 2024-12-27 13:04 | XMS_ITS | Encounter Summary ---
Author Organization [facility] Address 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 Brijesh Bird MD [address] [facility] [address] [place] [address] Viktoriya Gavin MD [address] [facility] [place] [phone] Other and Unspecified Angina Pectoris Social History Tobacco Use Types Packs/Day Years Used Date Smoking Tobacco: Never Assessed Comments Unknown Sex and Gender Information Value Date Recorded Sex Assigned at Not on file 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 [address] [place] [address] Koby Vinson MD [address] [facility] [address] [place] [address] documented as of this encounter [...] GLUCOSE POC 113(H) 65 - 99 mg/dL [facility] Venous blood specimen (specimen) 05/24/2008 9:29 AM CDT 05/24/2008 9:29 AM CDT Brijesh Bird MD POINT OF CARE TESTING Fin al Result INTERFACE SYSTEM Refer to clinic/hospital department [facility] CLIA# [id number] [address] [facility] [facility] [address] [place], [place] [address] * (ABNORMAL) POC GLUCOSE (05/24/2008 5:48 AM CDT) COMMENT, GLU POC Notified RN [facility] GLUCOSE POC 117(H) 65 - 99 mg/dL [facility] Venous blood specimen (specimen) 05/24/2008 5:48 AM CDT 05/24/2008 5:48 AM CDT us Brijesh Bird MD POINT OF CARE TESTING Fin al Result INTERFACE SYSTEM Refer to clinic/hospital department [facility] CLIA# [id number] [address] [place] [address] * (ABNORMAL) CBC WITH DIFFERENTIAL (05/24/2008 4:54 AM CDT) HEMOGLOBIN 9.8(L) 11.8 - 14.8 g/dL [facility] MCHC 33.2 31.5 - 35.5 % [facility] WBC 6.4 4.0 - 9.8 K/uL [facility] MCH 30.7 27.2 - 32.6 pg [facility] HEMATOCRIT 29.5(L) 35.5 - 44.0 % [facility] RDW 14.0 11.5 - 14.5 % [facility] RBC 3.19(L) 3.90 - 4.90 M/uL [facility] MCV 92.5 82.0 - 99.0 fL [facility] RDW-STDEV 47.1 37.1 - 48.7 fL [facility] LYMPHOCYTE ABSOLUTE 1.75 0.70 - 4.50 K/uL [facility] BASOPHILS 1 0 - 2 % [facility] BASOPHILS ABSOLUTE 0.05 0.00 - 0.20 K/uL [facility] MONOCYTES 10 3 - 13 % [facility] MONOCYTE ABSOLUTE 0.62 0.10 - 1.30 K/uL [facility] NEUTROPHILS 60 45 - 70 % [facility] NEUTROPHIL ABSOLUTE 3.86 1.90 - 7.00 K/uL [facility] EOSINOPHILS 2 0 - 7 % [facility] EOSINOPHIL ABSOLUTE 0.12 0.00 - 0.70 K/uL [facility] LYMPHOCYTES 27 16 - 45 % [facility] MPV 13.2(H) 9.3 - 12.4 fL [facility] PLATELETS 114(L) 140 - 350 K/uL [facility] Comment: Platelets verified by smear review. Blood specimen (specimen) 05/24/2008 4:54 AM CDT 05/24/2008 7:30 AM CDT Viktoriya Gavin MD HEMATOLOGY ORDERABLES Edit ed INTERFACE SYSTEM Refer to clinic/hospital department [facility] CLIA# [id number] [address] [place] [address] * (ABNORMAL) BASIC METABOLIC PANEL (05/24/2008 4:54 AM CDT) CHLORIDE 101 96 - 108 mmol/L [facility] GLUCOSE 84 65 - 99 mg/dL [facility] SODIUM 138 135 - 145 mmol/L [facility] CALCIUM 8.4(L) 8.6 - 10.2 mg/dL [facility] CO2 26 22 - 30 mmol/L [facility] CREATININE 0.60 0.51 - 0.95 mg/dL [facility] POTASSIUM 3.4(L) 3.5 - 4.9 mmol/L [facility] BUN 22(H) 6 - 20 mg/dL [facility] GFR, >60 >=60 mL/min/1. 7 sq meter [facility] GFR >60 >=60 mL/min/1. 7 sq meter [facility] Comment: Modification of Diet in Renal Disease (MDRD) study formula. Estimated GFR rate interpretative information for both Americans and non- Americans is available on the [facility] Intranet at: [email or web address] Select: Lab Policies and Procedures Select: Reference Ranges - GFR Blood specimen (specimen) 05/24/2008 4:54 AM CDT 05/24/2008 7:30 AM CDT Viktoriya Gavin MD CHEMISTRY ORDERABLES Edite d Performing Organization Address [facility] Phone Number INTERFACE SYSTEM Refer to clinic/hospital department [facility] CLIA# [id number] [address] [place] [address] * MAGNESIUM LEVEL (05/24/2008 4:54 AM CDT) MAGNESIUM 2.2 1.5 - 2.5 mg/dL [facility] Blood specimen (specimen) 05/24/2008 4:54 AM CDT 05/24/2008 7:30 AM CDT Viktoriya Gavin MD CHEMISTRY ORDERABLES Final Result Performing Organization Address [facility] Phone Number INTERFACE SYSTEM Refer to clinic/hospital department [facility] CLIA# [id number] [address] [place] [address] * (ABNORMAL) POC GLUCOSE (05/24/2008 1:17 AM CDT) GLUCOSE POC 108(H) 65 - 99 mg/dL [facility] Venous blood specimen (specimen) 05/24/2008 1:17 AM CDT 05/24/2008 1:17 AM CDT Brijesh Bird MD POINT OF CARE TESTING Fin al Result Performing Organization Address [facility] Phone Number INTERFACE SYSTEM Refer to clinic/hospital department [facility] CLIA# [id number] [address] [place] [address] * (ABNORMAL) POC GLUCOSE (05/23/2008 8:51 PM CDT) GLUCOSE POC 145(H) 65 - 99 mg/dL [facility] COMMENT, GLU POC Notified RN [facility] Venous blood specimen (specimen) 05/23/2008 8:51 PM CDT 05/23/2008 8:51 PM CDT Brijesh Bird MD POINT OF CARE TESTING Fin al Result Performing Organization Address [facility] de Phone Number INTERFACE SYSTEM Refer to clinic/hospital department [facility] CLIA# [id number] [address] [place] [address] * (ABNORMAL) POC GLUCOSE (05/23/2008 4:50 PM CDT) GLUCOSE POC 121(H) 65 - 99 mg/dL [facility] Venous blood specimen (specimen) 05/23/2008 4:50 PM CDT 05/23/2008 4:50 PM CDT Brijesh Bird MD POINT OF CARE TESTING Fin al Result Performing Organization Address [facility] de Phone Number INTERFACE SYSTEM Refer to clinic/hospital department [facility] CLIA# [id number] [address] [place] [address] * (ABNORMAL) POC GLUCOSE (05/23/2008 10:06 AM CDT) GLUCOSE POC 121(H) 65 - 99 mg/dL [facility] Venous blood specimen (specimen) 05/23/2008 10:06 AM CDT 05/23/2008 10:06 AM CDT Brijesh Bird MD POINT OF CARE TESTING Fin al Result Performing Organization Address [facility] de Phone Number INTERFACE SYSTEM Refer to clinic/hospital department [facility] CLIA# [id number] [address] [place] [address] * (ABNORMAL) POC GLUCOSE (05/23/2008 5:44 AM CDT) COMMENT, GLU POC Notified RN [facility] GLUCOSE POC 122(H) 65 - 99 mg/dL [facility] Venous blood specimen (specimen) 05/23/2008 5:44 AM CDT 05/23/2008 5:44 AM CDT Brijesh Bird MD POINT OF CARE TESTING Fin al Result Performing Organization Address [facility] de Phone Number INTERFACE SYSTEM Refer to clinic/hospital department [facility] CLIA# [id number] [address] [place] [address] * XR CHEST PA AND LATERAL (05/23/2008 5:20 AM CDT) Anatomical Region Laterality Modality Chest Other 05/23/2008 5:20 AM CDT Narrative 05/23/2008 8:32 AM CDT [facility] [address] [place], [place] [address] Admit Date: 05/19/2008 LENIN ABEBE A Sex: F Admit Prov: BRIJESH BIRD Date: 1945 Primary Care Prov: CMRN: [id number] Room: [address] [place] [address] SSN: [id number] IMAGING SERVICES Ordering Prov: N/A Accession Number: [id number] Interpretation EXAM: CHEST X-RAY, PA AND LATERAL, [...] DKT Procedure Note Brijesh Dover - 05/23/2008 [facility] [address], [place] [address] Admit Date: 05/19/2008 ABEBE [place] Sex: F Admit Prov: BRIJESH BIRD Date: 1945 Primary Care Prov: CMRN: [id number] Room: [address] [place] [address] SSN: [id number] IMAGING SERVICES Ordering Prov: N/A Interpretation EXAM: [...] CDT) RDW 14.3 11.5 - 14.5 % [facility] WBC 7.6 4.0 - 9.8 K/uL [facility] MCH 30.5 27.2 - 32.6 pg [facility] MPV 13.0(H) 9.3 - 12.4 fL [facility] HEMATOCRIT 31.9(L) 35.5 - 44.0 % [facility] RDW-STDEV 48.2 37.1 - 48.7 fL [facility] RBC 3.44(L) 3.90 - 4.90 M/uL [facility] MCHC 32.9 31.5 - 35.5 % [facility] MCV 92.7 82.0 - 99.0 fL [facility] PLATELETS 109(L) 140 - 350 K/uL [facility] HEMOGLOBIN 10.5(L) 11.8 - 14.8 g/dL [facility] LYMPHOCYTES 21 16 - 45 % [facility] LYMPHOCYTE ABSOLUTE 1.62 0.70 - 4.50 K/uL [facility] BASOPHILS 1 0 - 2 % [facility] BASOPHILS ABSOLUTE 0.05 0.00 - 0.20 K/uL [facility] MONOCYTES 10 3 - 13 % [facility] MONOCYTE ABSOLUTE 0.78 0.10 - 1.30 K/uL [facility] NEUTROPHILS 66 45 - 70 % [facility] NEUTROPHIL ABSOLUTE 5.06 1.90 - 7.00 K/uL [facility] EOSINOPHILS 1 0 - 7 % [facility] EOSINOPHIL ABSOLUTE 0.11 0.00 - 0.70 K/uL [facility] Blood specimen (specimen) 05/23/2008 5:00 AM CDT 05/23/2008 6:12 AM CDT us Radha CONTI HEMATOLOGY ORDERABLES Edited Performing Organization Address [facility] de Phone Number INTERFACE SYSTEM Refer to clinic/hospital department [facility] CLIA# [id number] [address] [place] [address] * MAGNESIUM LEVEL (05/23/2008 5:00 AM CDT) MAGNESIUM 2.1 1.5 - 2.5 mg/dL [facility] Blood specimen (specimen) 05/23/2008 5:00 AM CDT 05/23/2008 6:10 AM CDT Radha CONTI CHEMISTRY ORDERABLES Final Resu lt Performing Organization Address [facility] de Phone Number INTERFACE SYSTEM Refer to clinic/hospital department [facility] CLIA# [id number] [address] [place] [address] * (ABNORMAL) BASIC METABOLIC PANEL (05/23/2008 5:00 AM CDT) GLUCOSE 107(H) 65 - 99 mg/dL [facility] SODIUM 136 135 - 145 mmol/L [facility] CALCIUM 8.7 8.6 - 10.2 mg/dL [facility] CO2 27 22 - 30 mmol/L [facility] CREATININE 0.73 0.51 - 0.95 mg/dL [facility] POTASSIUM 3.6 3.5 - 4.9 mmol/L [facility] BUN 26(H) 6 - 20 mg/dL [facility] CHLORIDE 102 96 - 108 mmol/L [facility] GFR, >60 >=60 mL/min/1. 7 sq meter [facility] GFR >60 >=60 mL/min/1. 7 sq meter [facility] Comment: Modification of Diet in Renal Disease (MDRD) study formula. Estimated GFR rate interpretative information for both Americans and non- Americans is available on the [facility] Intranet at: [email or web address] Select: Lab Policies and Procedures Select: Reference Ranges - GFR Blood specimen (specimen) 05/23/2008 5:00 AM CDT 05/23/2008 6:10 AM CDT Radha CONTI CHEMISTRY ORDERABLES Edited Performing Organization Address [facility] Phone Number INTERFACE SYSTEM Refer to clinic/hospital department [facility] CLIA# [id number] [address] [place] [address] * (ABNORMAL) POC GLUCOSE (05/23/2008 12:46 AM CDT) GLUCOSE POC 141(H) 65 - 99 mg/dL [facility] COMMENT, GLU POC Notified GISELL [facility] Venous blood specimen (specimen) 05/23/2008 12:46 AM CDT 05/23/2008 12:46 AM CDT Brijesh Bird MD POINT OF CARE TESTING Fin al Result Performing Organization Address [facility] Phone Number INTERFACE SYSTEM Refer to clinic/hospital department [facility] CLIA# [id number] [address] [place] [address] * (ABNORMAL) POC GLUCOSE (05/22/2008 9:09 PM CDT) GLUCOSE POC 178(H) 65 - 99 mg/dL [facility] COMMENT, GLU POC Notified RN [facility] Venous blood specimen (specimen) 05/22/2008 9:09 PM CDT 05/22/2008 9:09 PM CDT Brijesh Bird MD POINT OF CARE TESTING Fin al Result Performing Organization Address [facility] Phone Number INTERFACE SYSTEM Refer to clinic/hospital department [facility] CLIA# [id number] [address] [place] [address] * (ABNORMAL) POC GLUCOSE (05/22/2008 5:10 PM CDT) GLUCOSE POC 129(H) 65 - 99 mg/dL [facility] Venous blood specimen (specimen) 05/22/2008 5:10 PM CDT 05/22/2008 5:10 PM CDT us Brijesh Bird MD POINT OF CARE TESTING Fin al Result Performing Organization Address [facility] Phone Number INTERFACE SYSTEM Refer to clinic/hospital department [facility] CLIA# [id number] [address] [place] [address] * (ABNORMAL) POC GLUCOSE (05/22/2008 1:54 PM CDT) GLUCOSE POC 120(H) 65 - 99 mg/dL [facility] Venous blood specimen (specimen) 05/22/2008 1:54 PM CDT 05/22/2008 1:54 PM CDT us Brijesh Bird MD POINT OF CARE TESTING Fin al Result Performing Organization Address [facility] de Phone Number INTERFACE SYSTEM Refer to clinic/hospital department [facility] CLIA# [id number] [address] [place] [address] * (ABNORMAL) POC GLUCOSE (05/22/2008 11:20 AM CDT) GLUCOSE POC 120(H) 65 - 99 mg/dL [facility] Venous blood specimen (specimen) 05/22/2008 11:20 AM CDT 05/22/2008 11:20 AM CDT us Brijesh Bird MD POINT OF CARE TESTING Fin al Result Performing Organization Address [facility] de Phone Number INTERFACE SYSTEM Refer to clinic/hospital department [facility] CLIA# [id number] [address] [place] [address] * (ABNORMAL) POC GLUCOSE (05/22/2008 8:41 AM CDT) GLUCOSE POC 112(H) 65 - 99 mg/dL [facility] Venous blood specimen (specimen) 05/22/2008 8:41 AM CDT 05/22/2008 8:41 AM CDT us Brijesh Bird MD POINT OF CARE TESTING Fin al Result Performing Organization Address [facility] de Phone Number INTERFACE SYSTEM Refer to clinic/hospital department [facility] CLIA# [id number] [address] [place] [address] * XR CHEST PA OR AP (05/22/2008 8:40 AM CDT) Anatomical Region Laterality Modality Chest Other 05/22/2008 8:40 AM CDT Narrative 05/22/2008 9:36 AM CDT [facility] [address] [place], [place] [address] Admit Date: 05/19/2008 ABEBE [place] Sex: F Admit Prov: BRIJESH BIRD Date: 1945 Primary Care Prov: CMRN: [id number] Room: [address] [place] [address] SSN: [id number] IMAGING SERVICES Ordering Prov: N/A Accession Number: [id number] Interpretation PORTABLE SEMIERECT CHEST OF 0850 HOURS, 05/22/2008 History: Respiratory distress. Findings: All the tubes and catheters have been removed. There is no pneumothorax. The heart size is mildly enlarged. Opinion: Well-aerated lungs after tube removal. . Dictated by: KANDACE MTZ 05/22/2008 09:09 Electronically signed by: KANDACE MTZ 05/22/2008 09:35 Transcribed: 05/22/2008 09:13 SMM Procedure Note Kandace Mtz MD - 05/22/2008 [facility] [address] [place], [place] [address] Admit Date: 05/19/2008 ABEBE [place] Sex: F Admit Prov: BRIJESH BIRD Date: 1945 Primary Care Prov: CMRN: [id number] Room: [address] [place] [address] SSN: [id number] IMAGING SERVICES Ordering Prov: N/A Interpretation PORTABLE [...] GLUCOSE POC 118(H) 65 - 99 mg/dL [facility] Venous blood specimen (specimen) 05/22/2008 6:16 AM CDT 05/22/2008 6:16 AM CDT us Brijesh Bird MD POINT OF CARE TESTING Fin al Result INTERFACE SYSTEM Refer to clinic/hospital department [facility] CLIA# [id number] [address] [place] [address] * (ABNORMAL) BASIC METABOLIC PANEL (05/22/2008 4:40 AM CDT) CHLORIDE 109(H) 96 - 108 mmol/L [facility] GLUCOSE 103(H) 65 - 99 mg/dL [facility] SODIUM 141 135 - 145 mmol/L [facility] CALCIUM 8.6 8.6 - 10.2 mg/dL [facility] CO2 26 22 - 30 mmol/L [facility] CREATININE 0.62 0.51 - 0.95 mg/dL [facility] POTASSIUM 4.1 3.5 - 4.9 mmol/L [facility] BUN 27(H) 6 - 20 mg/dL [facility] GFR, >60 >=60 mL/min/1. 7 sq meter [facility] GFR >60 >=60 mL/min/1. 7 sq meter [facility] Comment: Modification of Diet in Renal Disease (MDRD) study formula. Estimated GFR rate interpretative information for both Americans and non- Americans is available on the [facility] Intranet at: [email or web address] Select: Lab Policies and Procedures Select: Reference Ranges - GFR Blood specimen (specimen) 05/22/2008 4:40 AM CDT 05/22/2008 4:49 AM CDT Ary Fragoso NP CHEMISTRY ORDERABLES Edited INTERFACE SYSTEM Refer to clinic/hospital department [facility] CLIA# [id number] [address] [place] [address] * (ABNORMAL) CBC WITH DIFFERENTIAL (05/22/2008 4:40 AM CDT) MCV 92.4 82.0 - 99.0 fL [facility] HEMOGLOBIN 10.8(L) 11.8 - 14.8 g/dL [facility] RDW 14.6(H) 11.5 - 14.5 % [facility] WBC 11.2(H) 4.0 - 9.8 K/uL [facility] MCH 30.6 27.2 - 32.6 pg [facility] HEMATOCRIT 32.6(L) 35.5 - 44.0 % [facility] RDW-STDEV 49.3(H) 37.1 - 48.7 fL [facility] RBC 3.53(L) 3.90 - 4.90 M/uL [facility] MCHC 33.1 31.5 - 35.5 % [facility] EOSINOPHILS 0 0 - 7 % [facility] EOSINOPHIL ABSOLUTE 0.01 0.00 - 0.70 K/uL [facility] LYMPHOCYTES 14(L) 16 - 45 % [facility] LYMPHOCYTE ABSOLUTE 1.57 0.70 - 4.50 K/uL [facility] BASOPHILS 0 0 - 2 % [facility] BASOPHILS ABSOLUTE 0.02 0.00 - 0.20 K/uL [facility] MONOCYTES 12 3 - 13 % [facility] MONOCYTE ABSOLUTE 1.33(H) 0.10 - 1.30 K/uL [facility] NEUTROPHILS 74(H) 45 - 70 % [facility] NEUTROPHIL ABSOLUTE 8.27(H) 1.90 - 7.00 K/uL [facility] PLATELETS 95(L) 140 - 350 K/uL [facility] Comment: Platelets verified by smear review. MPV 12.9(H) 9.3 - 12.4 fL [facility] Blood specimen (specimen) 05/22/2008 4:40 AM CDT 05/22/2008 4:49 AM CDT us Ary Fragoso NP HEMATOLOGY ORDERABLES Edited Performing Organization Address [facility] de Phone Number INTERFACE SYSTEM Refer to clinic/hospital department [facility] CLIA# [id number] [address] [place] [address] * (ABNORMAL) POC GLUCOSE (05/22/2008 4:10 AM CDT) GLUCOSE POC 116(H) 65 - 99 mg/dL [facility] Venous blood specimen (specimen) 05/22/2008 4:10 AM CDT 05/22/2008 4:10 AM CDT Brijesh Bird MD POINT OF CARE TESTING Fin al Result Performing Organization Address [facility] Phone Number INTERFACE SYSTEM Refer to clinic/hospital department [facility] CLIA# [id number] [address] [place] [place] [address] * (ABNORMAL) POC GLUCOSE (05/22/2008 3:18 AM CDT) GLUCOSE POC 115(H) 65 - 99 mg/dL [facility] Venous blood specimen (specimen) 05/22/2008 3:18 AM CDT 05/22/2008 3:18 AM CDT Brijesh Bird MD POINT OF CARE TESTING Fin al Result Performing Organization Address [facility] de Phone Number INTERFACE SYSTEM Refer to clinic[facility] [facility] CLIA# [id number] [address] [place] [address] * (ABNORMAL) POC GLUCOSE (05/22/2008 2:04 AM CDT) GLUCOSE POC 136(H) 65 - 99 mg/dL [facility] Venous blood specimen (specimen) 05/22/2008 2:04 AM CDT 05/22/2008 2:04 AM CDT us Brijesh Bird MD POINT OF CARE TESTING Fin al Result Performing Organization Address [facility] Phone Number INTERFACE SYSTEM Refer to clinic/hospital department [facility] CLIA# [id number] [address] [place] [address] * (ABNORMAL) POC GLUCOSE (05/22/2008 1:01 AM CDT) GLUCOSE POC 109(H) 65 - 99 mg/dL [facility] Venous blood specimen (specimen) 05/22/2008 1:01 AM CDT 05/22/2008 1:01 AM CDT us Brijesh Bird MD POINT OF CARE TESTING Fin al Result Performing Organization Address [facility] Phone Number INTERFACE SYSTEM Refer to clinic/hospital department [facility] CLIA# [id number] [address] [place] [address] * POC GLUCOSE (05/22/2008 12:02 AM CDT) GLUCOSE POC 85 65 - 99 mg/dL [facility] Venous blood specimen (specimen) 05/22/2008 12:02 AM CDT 05/22/2008 12:02 AM CDT us Brijesh Bird MD POINT OF CARE TESTING Fin al Result Performing Organization Address [facility] de Phone Number INTERFACE SYSTEM Refer to clinic/hospital department [facility] CLIA# [id number] [address] [place] [address] * (ABNORMAL) POC GLUCOSE (05/21/2008 11:07 PM CDT) GLUCOSE POC 105(H) 65 - 99 mg/dL [facility] Venous blood specimen (specimen) 05/21/2008 11:07 PM CDT 05/21/2008 11:07 PM CDT us Brijesh Bird MD POINT OF CARE TESTING Fin al Result Performing Organization Address [facility] de Phone Number INTERFACE SYSTEM Refer to clinic/hospital department [facility] CLIA# [id number] [address] [place] [address] * POC GLUCOSE (05/21/2008 10:02 PM CDT) GLUCOSE POC 99 65 - 99 mg/dL [facility] Venous blood specimen (specimen) 05/21/2008 10:02 PM CDT 05/21/2008 10:02 PM CDT us Brijesh Bird MD POINT OF CARE TESTING Fin al Result Performing Organization Address [facility] de Phone Number INTERFACE SYSTEM Refer to clinic/hospital department [facility] CLIA# [id number] [address] [place] [address] * POC GLUCOSE (05/21/2008 9:14 PM CDT) GLUCOSE POC 93 65 - 99 mg/dL [facility] Venous blood specimen (specimen) 05/21/2008 9:14 PM CDT 05/21/2008 9:14 PM CDT us Brijesh Bird MD POINT OF CARE TESTING Fin al Result Performing Organization Address [facility] de Phone Number INTERFACE SYSTEM Refer to clinic/hospital department [facility] CLIA# [id number] [address] [place] [address] * (ABNORMAL) POC GLUCOSE (05/21/2008 8:19 PM CDT) GLUCOSE POC 112(H) 65 - 99 mg/dL [facility] Venous blood specimen (specimen) 05/21/2008 8:19 PM CDT 05/21/2008 8:19 PM CDT Brijesh Bird MD POINT OF CARE TESTING Fin al Result Performing Organization Address [facility] de Phone Number INTERFACE SYSTEM Refer to clinic/hospital department [facility] CLIA# [id number] [address] [place] [address] * (ABNORMAL) POC GLUCOSE (05/21/2008 4:28 PM CDT) GLUCOSE POC 104(H) 65 - 99 mg/dL [facility] Venous blood specimen (specimen) 05/21/2008 4:28 PM CDT 05/21/2008 4:28 PM CDT Brijesh Bird MD POINT OF CARE TESTING Fin al Result Performing Organization Address [facility] de Phone Number INTERFACE SYSTEM Refer to clinic/hospital department [facility] CLIA# [id number] [address] [place] [place] [address] * (ABNORMAL) POC GLUCOSE (05/21/2008 3:04 PM CDT) GLUCOSE POC 109(H) 65 - 99 mg/dL [facility] Venous blood specimen (specimen) 05/21/2008 3:04 PM CDT 05/21/2008 3:04 PM CDT Brijesh Bird MD POINT OF CARE TESTING Fin al Result Performing Organization Address [facility] de Phone Number INTERFACE SYSTEM Refer to clinic/hospital department [facility] CLIA# [id number] [address] [place] [address] * (ABNORMAL) POC GLUCOSE (05/21/2008 1:48 PM CDT) GLUCOSE POC 124(H) 65 - 99 mg/dL [facility] Venous blood specimen (specimen) 05/21/2008 1:48 PM CDT 05/21/2008 1:48 PM CDT Brijesh Bird MD POINT OF CARE TESTING Fin al Result Performing Organization Address [facility] de Phone Number INTERFACE SYSTEM Refer to clinic/hospital department [facility] CLIA# [id number] [address] [place] [address] * (ABNORMAL) BLOOD GAS ARTERIAL (05/21/2008 1:45 PM CDT) O2 CONC ARTERIAL 35% [facility] PCO2 ARTERIAL 42 35 - 48 mm Hg [facility] FO2HB ABG 95 94 - 98 % [facility] BASE EXCESS ABG -0.8 -2.0 - 3.0 mmol/L [facility] PO2 ARTERIAL 79(L) 83 - 108 mm Hg [facility] PH ARTERIAL 7.37 7.35 - 7.45 [facility] SO2 ABG 96 95 - 99 % [facility] HCO3 ARTERIAL 24 22 - 26 mmol/L [facility] Arterial blood specimen (specimen) 05/21/2008 1:45 PM CDT 05/21/2008 1:52 PM CDT us Ary Fragoso FIELD ENGINEER ABG ORDERABLES Final Result Performing Organization Address [facility] de Phone Number INTERFACE SYSTEM Refer to clinic/hospital department [facility] CLIA# [id number] [address] [place] [address] * (ABNORMAL) POC GLUCOSE (05/21/2008 1:10 PM CDT) GLUCOSE POC 123(H) 65 - 99 mg/dL [facility] Venous blood specimen (specimen) 05/21/2008 1:10 PM CDT 05/21/2008 1:10 PM CDT Brijesh Bird MD POINT OF CARE TESTING Fin al Result Performing Organization Address [facility] de Phone Number INTERFACE SYSTEM Refer to clinic/hospital department [facility] CLIA# [id number] [address] [place] [address] * (ABNORMAL) CVR ONLY, CKMB/CK (05/21/2008 12:30 PM CDT) CKMB 80.9(AA) <=3.8 ng/mL [facility] Comment: Persistent abnormal result CKMB INTERP See Below [facility] Comment: Elevated CKMB,consistent with Myocardial Injury CK 1,451(H) 10 - 145 U/L [facility] CARDIAC RELATIVE INDEX 5.6(H) <=4.0 [facility] Blood specimen (specimen) 05/21/2008 12:30 PM CDT 05/21/2008 12:32 PM CDT Viktoriya Gavin MD CHEMISTRY ORDERABLES Edite d Performing Organization Address [facility] de Phone Number INTERFACE SYSTEM Refer to clinic/hospital department [facility] CLIA# [id number] [address] [place] [address] * (ABNORMAL) POC GLUCOSE (05/21/2008 12:28 PM CDT) GLUCOSE POC 106(H) 65 - 99 mg/dL [facility] Venous blood specimen (specimen) 05/21/2008 12:28 PM CDT 05/21/2008 12:28 PM CDT Brijesh Bird MD POINT OF CARE TESTING Fin al Result Performing Organization Address [facility] Co de Phone Number INTERFACE SYSTEM Refer to clinic/hospital department [facility] CLIA# [id number] [address] [place] [address] * (ABNORMAL) POC GLUCOSE (05/21/2008 11:16 AM CDT) GLUCOSE POC 137(H) 65 - 99 mg/dL [facility] Venous blood specimen (specimen) 05/21/2008 11:16 AM CDT 05/21/2008 11:16 AM CDT Brijesh Bird MD POINT OF CARE TESTING Fin al Result Performing Organization Address [facility] de Phone Number INTERFACE SYSTEM Refer to clinic/hospital department [facility] CLIA# [id number] [address] [place] [address] * (ABNORMAL) POC RT, BLOOD GASES (05/21/2008 11:12 AM CDT) PO2 ARTERIAL 57(L) 83 - 108 mm Hg [facility] SODIUM POC 137 135 - 145 mmol/L [facility] PH ARTERIAL 7.38 7.35 - 7.45 [facility] BASE EXCESS ABG -1.3 -2.0 - 3.0 mmol/L [facility] HEMATOCRIT POC 35.0(L) 35.5 - 44.0 % [facility] O2 SAT EST ABG POC 89(L) 95 - 99 % [facility] POTASSIUM POC 4.3 3.5 - 4.9 mmol/L [facility] PCO2 ARTERIAL 40 35 - 48 mm Hg [facility] HCO3 ARTERIAL 24 22 - 26 mmol/L [facility] COMMENT, GASES POC RN NOTIFIED [facility] PATIENT'S TEMPERATURE 37.0 Degree C [facility] CALICUM IONIZED, WHOLE BLOOD 4.77 4.76 - 5.16 mg/dL [facility] Blood specimen (specimen) 05/21/2008 11:12 AM CDT 05/21/2008 11:12 AM CDT us Brijesh Bird MD CHEMISTRY ORDERABLES Rosenda l Result Performing Organization Address [facility] de Phone Number INTERFACE SYSTEM Refer to clinic/hospital department [facility] CLIA# [id number] [address] [place] [address] * (ABNORMAL) POC GLUCOSE (05/21/2008 10:18 AM CDT) GLUCOSE POC 148(H) 65 - 99 mg/dL [facility] Venous blood specimen (specimen) 05/21/2008 10:18 AM CDT 05/21/2008 10:18 AM CDT us Brijesh Bird MD POINT OF CARE TESTING Fin al Result Performing Organization Address [facility] de Phone Number INTERFACE SYSTEM Refer to clinic/hospital department [facility] CLIA# [id number] [address] [place] [address] * (ABNORMAL) POC GLUCOSE (05/21/2008 9:09 AM CDT) GLUCOSE POC 143(H) 65 - 99 mg/dL [facility] Venous blood specimen (specimen) 05/21/2008 9:09 AM CDT 05/21/2008 9:09 AM CDT us Brijesh Bird MD POINT OF CARE TESTING Fin al Result Performing Organization Address [facility] de Phone Number INTERFACE SYSTEM Refer to clinic/hospital department [facility] CLIA# [id number] [address] [place] [place] [address] * (ABNORMAL) POC GLUCOSE (05/21/2008 8:24 AM CDT) GLUCOSE POC 145(H) 65 - 99 mg/dL [facility] Venous blood specimen (specimen) 05/21/2008 8:24 AM CDT 05/21/2008 8:24 AM CDT us Brijesh Bird MD POINT OF CARE TESTING Fin al Result Performing Organization Address [facility] de Phone Number INTERFACE SYSTEM Refer to clinic/hospital department [facility] CLIA# [id number] [address] [place] [address] * (ABNORMAL) BLOOD GAS ARTERIAL (05/21/2008 8:00 AM CDT) O2 CONC ARTERIAL 55% [facility] BASE EXCESS ABG -2.5(L) -2.0 - 3.0 mmol/L [facility] PO2 ARTERIAL 69(L) 83 - 108 mm Hg [facility] PH ARTERIAL 7.33(L) 7.35 - 7.45 [facility] O2 SAT EST ARTERIAL 92(L) 94 - 98 % [facility] HCO3 ARTERIAL 23 22 - 26 mmol/L [facility] PCO2 ARTERIAL 46 35 - 48 mm Hg [facility] Arterial blood specimen (specimen) 05/21/2008 8:00 AM CDT 05/21/2008 8:13 AM CDT us Viktoriya Gavin MD ABG ORDERABLES Final Resu lt Performing Organization Address [facility] de Phone Number INTERFACE SYSTEM Refer to clinic/hospital department [facility] CLIA# [id number] [address] [place] [address] * (ABNORMAL) POC RT, BLOOD GASES (05/21/2008 6:30 AM CDT) PCO2 ARTERIAL 44 35 - 48 mm Hg [facility] FIO2 55 [facility] HCO3 ARTERIAL 21(L) 22 - 26 mmol/L [facility] PATIENT'S TEMPERATURE 37.0 Degree C [facility] CALICUM IONIZED, WHOLE BLOOD 4.77 4.76 - 5.16 mg/dL [facility] PEEP POC 5 [facility] PO2 ARTERIAL 63(L) 83 - 108 mm Hg [facility] SODIUM POC 133(L) 135 - 145 mmol/L [facility] OXYGEN MODE SIMV/PS [facility] PH ARTERIAL 7.29(L) 7.35 - 7.45 [facility] BASE EXCESS ABG -5.2(L) -2.0 - 3.0 mmol/L [facility] COMMENT, GASES POC RN/MD NOTIFIED [facility] HEMATOCRIT POC 37.0 35.5 - 44.0 % [facility] O2 SAT EST ABG POC 89(L) 95 - 99 % [facility] POTASSIUM POC 4.6 3.5 - 4.9 mmol/L [facility] Blood specimen (specimen) 05/21/2008 6:30 AM CDT 05/21/2008 6:30 AM CDT us Brijesh Bird MD CHEMISTRY ORDERABLES Rosenda chavez Result INTERFACE SYSTEM Refer to clinic/hospital department [facility] CLIA# [id number] [address] [place] [address] * (ABNORMAL) POC GLUCOSE (05/21/2008 6:08 AM CDT) GLUCOSE POC 133(H) 65 - 99 mg/dL [facility] Venous blood specimen (specimen) 05/21/2008 6:08 AM CDT 05/21/2008 6:08 AM CDT Brijesh Bird MD POINT OF CARE TESTING Fin al Result INTERFACE SYSTEM Refer to clinic/hospital department [facility] CLIA# [id number] [address] [place], [place] [address] * (ABNORMAL) POC RT, BLOOD GASES (05/21/2008 5:42 AM CDT) FIO2 55 [facility] HCO3 ARTERIAL 21(L) 22 - 26 mmol/L [facility] PATIENT'S TEMPERATURE 37.0 Degree C [facility] CALICUM IONIZED, WHOLE BLOOD 4.73(L) 4.76 - 5.16 mg/dL [facility] PH ARTERIAL 7.26(L) 7.35 - 7.45 [facility] SODIUM POC 134(L) 135 - 145 mmol/L [facility] COMMENT, GASES POC RN/MD NOTIFIED [facility] PCO2 ARTERIAL 47 35 - 48 mm Hg [facility] BASE EXCESS ABG -6.0(L) -2.0 - 3.0 mmol/L [facility] HEMATOCRIT POC 38.0 35.5 - 44.0 % [facility] PO2 ARTERIAL 64(L) 83 - 108 mm Hg [facility] O2 SAT EST ABG POC 88(L) 95 - 99 % [facility] POTASSIUM POC 4.8 3.5 - 4.9 mmol/L [facility] Blood specimen (specimen) 05/21/2008 5:42 AM CDT 05/21/2008 5:42 AM CDT Brijesh Bird MD CHEMISTRY ORDERABLES Rosenda chavez Result INTERFACE SYSTEM Refer to clinic/hospital department [facility] CLIA# [id number] [address] [place] [address] * XR CHEST PA OR AP (05/21/2008 5:20 AM CDT) Anatomical Region Laterality Modality Chest Other 05/21/2008 5:20 AM CDT Narrative 05/21/2008 9:31 AM CDT [facility] [address] [place], [place] [address] Admit Date: 05/19/2008 A[place]BE [place] Sex: F Admit Prov: BRIJESH BIRD Date: 1945 Primary Care Prov: CMRN: [id number] Room: [address] [place] [address] SSN: [id number] IMAGING SERVICES Ordering Prov: N/A Accession Number: [id number] Interpretation CHEST SINGLE VIEW 05/21/08 AT 0530 [...] Procedure Note Jocelyn Rasmussen MD - 05/21/2008 [facility] [address] [place], [place] [address] Admit Date: 05/19/2008 ABEBE [place] Sex: F Admit Prov: BRIJESH BIRD Date: 1945 Primary Care Prov: CMRN: [id number] Room: [address] [place] [address] SSN: [id number] IMAGING SERVICES Ordering Prov: N/A Interpretation CHEST [...] GLUCOSE POC 139(H) 65 - 99 mg/dL [facility] Venous blood specimen (specimen) 05/21/2008 4:11 AM CDT 05/21/2008 4:11 AM CDT us Brijesh Bird MD POINT OF CARE TESTING Fin al Result Performing Organization Address City/[facility] Co de Phone Number INTERFACE SYSTEM Refer to clinic/hospital department [facility] CLIA# [id number] [address] [place] [address] * (ABNORMAL) PT AND APTT (05/21/2008 4:00 AM CDT) INR 1.2(H) 0.9 - 1.1 [facility] Comment: INR Therapeutic Range: Adult: 2.0 [...] established. PROTIME 14.9 12.7 - 15.1 Seconds [facility] PTT 27.0 24.4 - 36.4 Seconds [facility] Comment: PTT Therapeutic Range: Heparin Level PTT (seconds) <0.10 units/mL <53 0.10 - 0.30 units/mL 53 - 67 0.30 - 0.70 units/mL* 67 - 95* 0.70 - 1.00 units/mL 95 - 116 *corresponds to therapeutic range for unfractionated heparin Blood specimen (specimen) 05/21/2008 4:00 AM CDT 05/21/2008 4:21 AM CDT us Viktoriya Gavin MD HEMATOLOGY ORDERABLES Edit ed Performing Organization Address City/[facility]/ZIP Co de Phone Number INTERFACE SYSTEM Refer to clinic/hospital department [facility] CLIA# [id number] [address] [place] [address] * (ABNORMAL) COMPREHENSIVE METABOLIC PANEL (05/21/2008 4:00 AM CDT) CREATININE 0.82 0.51 - 0.95 mg/dL [facility] ALT 38(H) 0 - 31 U/L [facility] SODIUM 140 135 - 145 mmol/L [facility] ALKALINE PHOSPHATASE 57 35 - 104 U/L [facility] CO2 22 22 - 30 mmol/L [facility] BILIRUBIN TOTAL 0.2 0.2 - 1.0 mg/dL [facility] POTASSIUM 4.7 3.5 - 4.9 mmol/L [facility] TOTAL PROTEIN 5.3(L) 6.3 - 8.6 g/dL [facility] GLUCOSE 138(H) 65 - 99 mg/dL [facility] AST 155(H) 12 - 32 U/L [facility] BUN 21(H) 6 - 20 mg/dL [facility] CALCIUM 8.0(L) 8.6 - 10.2 mg/dL [facility] ALBUMIN 3.3(L) 3.4 - 4.8 g/dL [facility] CHLORIDE 111(H) 96 - 108 mmol/L [facility] GFR, >60 >=60 mL/min/1. 7 sq meter [facility] GFR >60 >=60 mL/min/1. 7 sq meter [facility] Comment: Modification of Diet in Renal Disease (MDRD) study formula. Estimated GFR rate interpretative information for both Americans and non- Americans is available on the [facility]et at: [email or web address] Select: Lab Policies and Procedures Select: Reference Ranges - GFR Blood specimen (specimen) 05/21/2008 4:00 AM CDT 05/21/2008 4:21 AM CDT Viktoriya Gavin MD CHEMISTRY ORDERABLES Edite d Performing Organization Address [facility] Phone Number INTERFACE SYSTEM Refer to clinic/hospital department [facility] CLIA# [id number] [address] [place] [address] * (ABNORMAL) CVR ONLY, CKMB/CK (05/21/2008 4:00 AM CDT) CKMB 137.4(AA) <=3.8 ng/mL [facility] Comment: Persistent abnormal result CKMB INTERP See Below [facility] Comment: Elevated CKMB,consistent with Myocardial Injury CK 1,974(H) 10 - 145 U/L [facility] CARDIAC RELATIVE INDEX 7.0(H) <=4.0 [facility] Blood specimen (specimen) 05/21/2008 4:00 AM CDT 05/21/2008 4:21 AM CDT Viktoriya Gavin MD CHEMISTRY ORDERABLES Edite d Performing Organization Address [facility] Phone Number INTERFACE SYSTEM Refer to clinic/hospital department [facility] CLIA# [id number] [address] [place] [address] * (ABNORMAL) CBC WITH DIFFERENTIAL (05/21/2008 4:00 AM CDT) HEMATOCRIT 38.4 35.5 - 44.0 % [facility] RDW-STDEV 49.7(H) 37.1 - 48.7 fL [facility] RBC 4.16 3.90 - 4.90 M/uL [facility] MCHC 33.3 31.5 - 35.5 % [facility] MCV 92.3 82.0 - 99.0 fL [facility] PLATELETS 129(L) 140 - 350 K/uL [facility] HEMOGLOBIN 12.8 11.8 - 14.8 g/dL [facility] RDW 14.7(H) 11.5 - 14.5 % [facility] WBC 14.4(H) 4.0 - 9.8 K/uL [facility] MCH 30.8 27.2 - 32.6 pg [facility] MPV 13.0(H) 9.3 - 12.4 fL [facility] MONOCYTES 9 3 - 13 % [facility] MONOCYTE ABSOLUTE 1.34(H) 0.10 - 1.30 K/uL [facility] NEUTROPHILS 86(H) 45 - 70 % [facility] NEUTROPHIL ABSOLUTE 12.44(H) 1.90 - 7.00 K/uL [facility] EOSINOPHILS 0 0 - 7 % [facility] EOSINOPHIL ABSOLUTE 0.00 0.00 - 0.70 K/uL [facility] LYMPHOCYTES 4(L) 16 - 45 % [facility] LYMPHOCYTE ABSOLUTE 0.62(L) 0.70 - 4.50 K/uL [facility] BASOPHILS 0 0 - 2 % [facility] BASOPHILS ABSOLUTE 0.01 0.00 - 0.20 K/uL [facility] Blood specimen (specimen) 05/21/2008 4:00 AM CDT 05/21/2008 4:21 AM CDT us Viktoriya Gavin MD HEMATOLOGY ORDERABLES Edit ed INTERFACE SYSTEM Refer to clinic/hospital [facility] [facility] CLIA# [id number] [address] [place] [address] * (ABNORMAL) POC GLUCOSE (05/21/2008 2:50 AM CDT) GLUCOSE POC 155(H) 65 - 99 mg/dL [facility] Venous blood specimen (specimen) 05/21/2008 2:50 AM CDT 05/21/2008 2:50 AM CDT Brijesh Bird MD POINT OF CARE TESTING Fin al Result Performing Organization Address City/[facility] de Phone Number INTERFACE SYSTEM Refer to clinic/hospital department [facility] CLIA# [id number] [address] [place] [address] * (ABNORMAL) POC GLUCOSE (05/21/2008 1:10 AM CDT) GLUCOSE POC 159(H) 65 - 99 mg/dL [facility] Venous blood specimen (specimen) 05/21/2008 1:10 AM CDT 05/21/2008 1:10 AM CDT Brijesh Bird MD POINT OF CARE TESTING Fin al Result Performing Organization Address [facility] de Phone Number INTERFACE SYSTEM Refer to clinic/hospital department [facility] CLIA# [id number] [address] [place] [address] * (ABNORMAL) POC GLUCOSE (05/20/2008 11:57 PM CDT) GLUCOSE POC 158(H) 65 - 99 mg/dL [facility] Venous blood specimen (specimen) 05/20/2008 11:57 PM CDT 05/20/2008 11:57 PM CDT Brijesh Bird MD POINT OF CARE TESTING Fin al Result Performing Organization Address City/[facility] de Phone Number INTERFACE SYSTEM Refer to clinic/hospital department [facility] CLIA# [id number] [address] [place] [address] * (ABNORMAL) POC GLUCOSE (05/20/2008 10:21 PM CDT) GLUCOSE POC 156(H) 65 - 99 mg/dL [facility] Venous blood specimen (specimen) 05/20/2008 10:21 PM CDT 05/20/2008 10:21 PM CDT Brijesh Bird MD POINT OF CARE TESTING Fin al Result Performing Organization Address [facility] de Phone Number INTERFACE SYSTEM Refer to clinic/hospital department [facility] CLIA# [id number] [address] [place] [address] * (ABNORMAL) POC GLUCOSE (05/20/2008 9:24 PM CDT) GLUCOSE POC 145(H) 65 - 99 mg/dL [facility] Venous blood specimen (specimen) 05/20/2008 9:24 PM CDT 05/20/2008 9:24 PM CDT Brijesh Bird MD POINT OF CARE TESTING Fin al Result Performing Organization Address [facility] de Phone Number INTERFACE SYSTEM Refer to clinic/hospital department [facility] CLIA# [id number] [address] [place] [address] * (ABNORMAL) POC GLUCOSE (05/20/2008 8:11 PM CDT) GLUCOSE POC 148(H) 65 - 99 mg/dL [facility] Venous blood specimen (specimen) 05/20/2008 8:11 PM CDT 05/20/2008 8:11 PM CDT Brijesh Bird MD POINT OF CARE TESTING Fin al Result Performing Organization Address City/[facility] de Phone Number INTERFACE SYSTEM Refer to clinic/hospital department [facility] CLIA# [id number] [address] [place] [address] * (ABNORMAL) CVR ONLY, CKMB/CK (05/20/2008 7:25 PM CDT) [facility] CKMB 166.9(AA) <=3.8 ng/mL [facility] Comment: Persistent abnormal result CKMB INTERP See Below [facility] Comment: Elevated CKMB,consistent with Myocardial Injury CK 2,169(H) 10 - 145 U/L [facility] CARDIAC RELATIVE INDEX 7.7(H) <=4.0 [facility] Blood specimen (specimen) 05/20/2008 7:25 PM CDT 05/20/2008 7:31 PM CDT us Viktoriya Gavin MD CHEMISTRY ORDERABLES Edite d Performing Organization Address [facility] de Phone Number INTERFACE SYSTEM Refer to clinic/hospital department [facility] CLIA# [id number] [address] [place] [address] * (ABNORMAL) POC GLUCOSE (05/20/2008 7:14 PM CDT) [facility] GLUCOSE POC 154(H) 65 - 99 mg/dL [facility] Venous blood specimen (specimen) 05/20/2008 7:14 PM CDT 05/20/2008 7:14 PM CDT us Brijesh Bird MD POINT OF CARE TESTING Fin al Result Performing Organization Address [facility] de Phone Number INTERFACE SYSTEM Refer to clinic/hospital department [facility] CLIA# [id number] [address] [place] [address] * MAGNESIUM LEVEL (05/20/2008 6:40 PM CDT) MAGNESIUM 2.4 1.5 - 2.5 mg/dL [facility] Blood specimen (specimen) 05/20/2008 6:40 PM CDT 05/20/2008 6:48 PM CDT Viktoriya Gavin MD CHEMISTRY ORDERABLES Final Result Performing Organization Address City/[facility] Phone Number INTERFACE SYSTEM Refer to clinic/hospital department [facility] CLIA# [id number] [address] [place] [address] * POTASSIUM LEVEL (05/20/2008 6:40 PM CDT) [facility] Signature POTASSIUM 4.9 3.5 - 4.9 mmol/L [facility] Blood specimen (specimen) 05/20/2008 6:40 PM CDT 05/20/2008 6:48 PM CDT Viktoriya Gavin MD CHEMISTRY ORDERABLES Final Result Performing Organization Address [facility] Phone Number INTERFACE SYSTEM Refer to clinic/hospital department [facility] CLIA# [id number] [address] [place] [address] * (ABNORMAL) POC GLUCOSE (05/20/2008 6:06 PM CDT) [facility] GLUCOSE POC 146(H) 65 - 99 mg/dL [facility] Venous blood specimen (specimen) 05/20/2008 6:06 PM CDT 05/20/2008 6:06 PM CDT Brijesh Bird MD POINT OF CARE TESTING Fin al Result Performing Organization Address City/[facility] de Phone Number INTERFACE SYSTEM Refer to clinic/hospital department [facility] CLIA# [id number] [address] [place] [address] * (ABNORMAL) POC GLUCOSE (05/20/2008 4:46 PM CDT) GLUCOSE POC 143(H) 65 - 99 mg/dL [facility] Venous blood specimen (specimen) 05/20/2008 4:46 PM CDT 05/20/2008 4:46 PM CDT us Brijesh Bird MD POINT OF CARE TESTING Fin al Result Performing Organization Address [facility] Phone Number INTERFACE SYSTEM Refer to clinic/hospital department [facility] CLIA# [id number] [address] [place] [address] * POTASSIUM LEVEL (05/20/2008 4:25 PM CDT) [facility] Signature POTASSIUM 4.5 3.5 - 4.9 mmol/L [facility] Blood specimen (specimen) 05/20/2008 4:25 PM CDT 05/20/2008 4:35 PM CDT Viktoriya Gavin MD CHEMISTRY ORDERABLES Final Result Performing Organization Address [facility] Phone Number INTERFACE SYSTEM Refer to clinic/hospital department [facility] CLIA# [id number] [address] [place] [address] * (ABNORMAL) POC GLUCOSE (05/20/2008 3:51 PM CDT) GLUCOSE POC 146(H) 65 - 99 mg/dL [facility] Venous blood specimen (specimen) 05/20/2008 3:51 PM CDT 05/20/2008 3:51 PM CDT us Brijesh Bird MD POINT OF CARE TESTING Fin al Result Performing Organization Address [facility] de Phone Number INTERFACE SYSTEM Refer to clinic/hospital department [facility] CLIA# [id number] [address] [place] [address] * (ABNORMAL) POC GLUCOSE (05/20/2008 3:16 PM CDT) GLUCOSE POC 149(H) 65 - 99 mg/dL [facility] Venous blood specimen (specimen) 05/20/2008 3:16 PM CDT 05/20/2008 3:16 PM CDT us Brijesh Brid MD POINT OF CARE TESTING Fin al Result INTERFACE SYSTEM Refer to clinic/hospital department [facility] CLIA# [id number] [address] [place] [address] * (ABNORMAL) POC RT, BLOOD GASES (05/20/2008 12:58 PM CDT) BASE EXCESS VENOUS -7.6(L) -2.0 - 3.0 mmol/L [facility] HEMATOCRIT POC 26.0(L) 35.5 - 44.0 % [facility] PEEP POC 5 [facility] O2 SAT EST MVBG POC 61 40 - 70 % [facility] POTASSIUM POC 3.0(L) 3.5 - 4.9 mmol/L [facility] OXYGEN MODE SIMV [facility] PCO2 VENOUS 29(L) 38 - 50 mm Hg [facility] HCO3 MIXED VENOUS 17(L) 22 - 29 mmol/L [facility] COMMENT, GASES POC RN AWARE [facility] FIO2 50 [facility] PH MVBG 7.37 7.32 - 7.43 [facility] PATIENT'S TEMPERATURE 37.0 Degree C [facility] CALICUM IONIZED, WHOLE BLOOD 5.09 4.76 - 5.16 mg/dL [facility] PO2 MVBG 33 25 - 40 mm Hg [facility] TIDAL VOLUME POC 700 [facility] SODIUM POC 145 135 - 145 mmol/L [facility] Blood specimen (specimen) 05/20/2008 12:58 PM CDT 05/20/2008 12:58 PM CDT Brijesh Bird MD CHEMISTRY ORDERABLES Rosenda l Result Performing Organization Address [facility] de Phone Number INTERFACE SYSTEM Refer to clinic/hospital department [facility] CLIA# [id number] [address] [place] [address] * (ABNORMAL) POC GLUCOSE (05/20/2008 12:39 PM CDT) GLUCOSE POC 121(H) 65 - 99 mg/dL [facility] Venous blood specimen (specimen) 05/20/2008 12:39 PM CDT 05/20/2008 12:39 PM CDT Brijesh Bird MD POINT OF CARE TESTING Fin al Result Performing Organization Address [facility] Phone Number INTERFACE SYSTEM Refer to clinic/hospital department [facility] CLIA# [id number] [address] [place] [address] * (ABNORMAL) POC GLUCOSE (05/20/2008 11:22 AM CDT) GLUCOSE POC 120(H) 65 - 99 mg/dL [facility] Venous blood specimen (specimen) 05/20/2008 11:22 AM CDT 05/20/2008 11:22 AM CDT Brijesh Bird MD POINT OF CARE TESTING Fin al Result Performing Organization Address [facility] de Phone Number INTERFACE SYSTEM Refer to clinic/hospital department [facility] CLIA# [id number] [address] [place] [address] * (ABNORMAL) POC RT, BLOOD GASES (05/20/2008 11:21 AM CDT) Pathologist [facility] FIO2 60 [facility] PATIENT'S TEMPERATURE 37.0 Degree C [facility] POTASSIUM POC 4.1 3.5 - 4.9 mmol/L [facility] CALICUM IONIZED, WHOLE BLOOD 4.85 4.76 - 5.16 mg/dL [facility] PEEP POC 5 [facility] PO2 ARTERIAL 109(H) 83 - 108 mm Hg [facility] COMMENT, GASES POC RN AWARE [facility] OXYGEN MODE SIMV/PS [facility] PH ARTERIAL 7.41 7.35 - 7.45 [facility] BASE EXCESS ABG -0.4 -2.0 - 3.0 mmol/L [facility] O2 SAT EST ABG POC 98 95 - 99 % [facility] HEMATOCRIT POC 31.0(L) 35.5 - 44.0 % [facility] SODIUM POC 134(L) 135 - 145 mmol/L [facility] PCO2 ARTERIAL 38 35 - 48 mm Hg [facility] HCO3 ARTERIAL 24 22 - 26 mmol/L [facility] Blood specimen (specimen) 05/20/2008 11:21 AM CDT 05/20/2008 11:21 AM CDT us Brijesh Bird MD CHEMISTRY ORDERABLES Rosenda chavez Result INTERFACE SYSTEM Refer to clinic/hospital department [facility] CLIA# [id number] [address] [place] [address] * (ABNORMAL) PT AND APTT (05/20/2008 11:20 AM CDT) PROTIME 17.3(H) 12.7 - 15.1 Seconds [facility] INR 1.4(H) 0.9 - 1.1 [facility] Comment: INR Therapeutic Range: Adult: 2.0 [...] established. PTT 31.9 24.4 - 36.4 Seconds [facility] Comment: PTT Therapeutic Range: Heparin Level [...] ed INTERFACE SYSTEM Refer to clinic/hospital department [facility] CLIA# [id number] [address] [place] [address] * (ABNORMAL) MAGNESIUM LEVEL (05/20/2008 11:20 AM CDT) MAGNESIUM 2.7(H) 1.5 - 2.5 mg/dL [facility] Blood specimen (specimen) 05/20/2008 11:20 AM CDT 05/20/2008 11:25 AM CDT Viktoriya Gavin MD CHEMISTRY ORDERABLES Final Result Performing Organization Address [facility] de Phone Number INTERFACE SYSTEM Refer to clinic/hospital department [facility] CLIA# [id number] [address] [place] [address] * (ABNORMAL) CVR ONLY, CKMB/CK (05/20/2008 11:20 AM CDT) Pathologist [facility] CKMB 12.5(AA) <=3.8 ng/mL [facility] Comment: Results called to yenifer at 05/20/08 11:54 AM and read back verified. CKMB INTERP See Below [facility] Comment: Elevated CKMB,consistent with Myocardial Injury. CK 121 10 - 145 U/L [facility] CARDIAC RELATIVE INDEX N/A <=4.0 [facility] Blood specimen (specimen) 05/20/2008 11:20 AM CDT 05/20/2008 11:25 AM CDT Viktoriya Gavin MD CHEMISTRY ORDERABLES Edite d Performing Organization Address [facility] de Phone Number INTERFACE SYSTEM Refer to clinic/hospital department [facility] CLIA# [id number] [address] [place] [address] * (ABNORMAL) BASIC METABOLIC PANEL (05/20/2008 11:20 AM CDT) CALCIUM 8.4(L) 8.6 - 10.2 mg/dL [facility] CO2 22 22 - 30 mmol/L [facility] CREATININE 0.80 0.51 - 0.95 mg/dL [facility] POTASSIUM 4.2 3.5 - 4.9 mmol/L [facility] BUN 14 6 - 20 mg/dL [facility] CHLORIDE 109(H) 96 - 108 mmol/L [facility] GLUCOSE 111(H) 65 - 99 mg/dL [facility] SODIUM 136 135 - 145 mmol/L [facility] GFR, >60 >=60 mL/min/1. 7 sq meter [facility] GFR >60 >=60 mL/min/1. 7 sq meter [facility] Comment: Modification of Diet in Renal Disease (MDRD) study formula. Estimated GFR rate interpretative information for both Americans and non- Americans is available on the [facility] at: [email or web address] Select: Lab Policies and Procedures Select: Reference Ranges - GFR Blood specimen (specimen) 05/20/2008 11:20 AM CDT 05/20/2008 11:25 AM CDT Viktoriya Gavin MD CHEMISTRY ORDERABLES Edite d INTERFACE SYSTEM Refer to clinic/hospital department [facility] CLIA# [id number] [address] [place] [address] * (ABNORMAL) CBC WITH DIFFERENTIAL (05/20/2008 11:20 AM CDT) WBC 7.4 4.0 - 9.8 K/uL [facility] MCH 30.8 27.2 - 32.6 pg [facility] MPV 12.6(H) 9.3 - 12.4 fL [facility] HEMATOCRIT 33.0(L) 35.5 - 44.0 % [facility] RDW-STDEV 45.9 37.1 - 48.7 fL [facility] RBC 3.64(L) 3.90 - 4.90 M/uL [facility] MCHC 33.9 31.5 - 35.5 % [facility] MCV 90.7 82.0 - 99.0 fL [facility] PLATELETS 111(L) 140 - 350 K/uL [facility] HEMOGLOBIN 11.2(L) 11.8 - 14.8 g/dL [facility] RDW 13.7 11.5 - 14.5 % [facility] LYMPHOCYTES 19 16 - 45 % [facility] LYMPHOCYTE ABSOLUTE 1.37 0.70 - 4.50 K/uL [facility] BASOPHILS 0 0 - 2 % [facility] BASOPHILS ABSOLUTE 0.03 0.00 - 0.20 K/uL [facility] MONOCYTES 1(L) 3 - 13 % [facility] MONOCYTE ABSOLUTE 0.10 0.10 - 1.30 K/uL [facility] NEUTROPHILS 78(H) 45 - 70 % [facility] NEUTROPHIL ABSOLUTE 5.76 1.90 - 7.00 K/uL [facility] EOSINOPHILS 2 0 - 7 % [facility] EOSINOPHIL ABSOLUTE 0.11 0.00 - 0.70 K/uL [facility] Blood specimen (specimen) 05/20/2008 11:20 AM CDT 05/20/2008 11:25 AM CDT Viktoriya Gavin MD HEMATOLOGY ORDERABLES Edit ed INTERFACE SYSTEM Refer to clinic/hospital department [facility] CLIA# [id number] [address] [place] [address] * XR CHEST PA OR AP (05/20/2008 11:00 AM CDT) Anatomical Region Laterality Modality Chest Other 05/20/2008 11:0 0 AM CDT Narrative 05/20/2008 11:45 AM CDT [facility] [address] [place], [place] [address] Admit Date: 05/19/2008 A[place]BE [place] Sex: F Admit Prov: BRIJESH BIRD Date: 1945 Primary Care Prov: CMRN: [id number] Room: [address] [place] [address] SSN: [id number] IMAGING SERVICES Ordering Prov: N/A Accession Number: [id number] Interpretation Portable AP supine chest of 1120 hours. History: Chest pain. Lines: Since the previous exam of May 19, the patient has undergone median sternotomy. The chest tubes are in expected position. The endotracheal tube tip is at the thoracic inlet. The [place]-Ambrosio catheter tip is overlying the main pulmonary artery. There is a mild hazy atelectatic change in the left lung. There is no pneumothorax. The heart size is mildly enlarged. Opinion: Mild cardiomegaly and mild left atelectasis . Dictated by: KANDACE MTZ 05/20/2008 11:42 Electronically signed by: KANDACE MTZ 05/20/2008 11:43 Procedure Note Kandace Mtz MD - 05/20/2008 [facility] [address] [place], [place] [address] Admit Date: 05/19/2008 ABEBE [place]UNN[place] Sex: F Admit Prov: BRIJESH BIRD Date: 1945 Primary Care Prov: CMRN: [id number] Room: [address] [place] [address] 1 SSN: [id number] IMAGING SERVICES Ordering Prov: N/A Interpretation Portable AP supine chest of 1120 hours. History: Chest pain. Lines: Since the previous exam of May 19, the patient hasundergone median sternotomy. The chest tubes are in expected position. The endotracheal tube tip is at the thoracic inlet. The [place]-Ganzcatheter tip is overlying the main pulmonary artery. [...] AM CDT) COMMENT, GASES POC POST BYPASS [facility] PATIENT'S TEMPERATURE 37.0 Degree C [facility] LACTIC ACID 2.3(H) 0.5 - 2.2 mmol/L [facility] CALICUM IONIZED, WHOLE BLOOD 4.97 4.76 - 5.16 mg/dL [facility] PO2 ARTERIAL 220(H) 83 - 108 mm Hg [facility] SODIUM POC 136 135 - 145 mmol/L [facility] PH ARTERIAL 7.35(L) 7.35 - 7.45 [facility] BASE EXCESS ABG -0.9 -2.0 - 3.0 mmol/L [facility] HEMATOCRIT POC 26.0(L) 35.5 - 44.0 % [facility] GLUCOSE POC 108(H) 65 - 99 mg/dL [facility] O2 SAT EST ABG POC 100(H) 95 - 99 % [facility] POTASSIUM POC 4.7 3.5 - 4.9 mmol/L [facility] TCO2, ABG POC 26(H) 19 - 24 mmol/L [facility] PCO2 ARTERIAL 45 35 - 48 mm Hg [facility] HCO3 ARTERIAL 25 22 - 26 mmol/L [facility] Blood specimen (specimen) 05/20/2008 10:48 AM CDT 05/20/2008 10:48 AM CDT Brijesh Bird MD CHEMISTRY ORDERABLES Rosenda chavez Result Performing Organization Address [facility] Co de Phone Number INTERFACE SYSTEM Refer to clinic/hospital department [facility] CLIA# [id number] [address] [place] [address] * (ABNORMAL) POC RT, BLOOD GASES (05/20/2008 10:35 AM CDT) PCO2 ARTERIAL 37 35 - 48 mm Hg [facility] HCO3 ARTERIAL 24 22 - 26 mmol/L [facility] COMMENT, GASES POC POST PROTAMINE [facility] PATIENT'S TEMPERATURE 37.0 Degree C [facility] LACTIC ACID 2.1 0.5 - 2.2 mmol/L [facility] CALICUM IONIZED, WHOLE BLOOD 4.81 4.76 - 5.16 mg/dL [facility] PO2 ARTERIAL 100 83 - 108 mm Hg [facility] SODIUM POC 136 135 - 145 mmol/L [facility] PH ARTERIAL 7.41 7.35 - 7.45 [facility] BASE EXCESS ABG -1.0 -2.0 - 3.0 mmol/L [facility] HEMATOCRIT POC 25.0(L) 35.5 - 44.0 % [facility] GLUCOSE POC 110(H) 65 - 99 mg/dL [facility] O2 SAT EST ABG POC 98 95 - 99 % [facility] POTASSIUM POC 4.5 3.5 - 4.9 mmol/L [facility] TCO2, ABG POC 25(H) 19 - 24 mmol/L [facility] Blood specimen (specimen) 05/20/2008 10:35 AM CDT 05/20/2008 10:35 AM CDT Brijesh Bird MD CHEMISTRY ORDERABLES Rosenda chavez Result INTERFACE SYSTEM Refer to clinic/hospital department [facility] CLIA# [id number] [place] [id number] * (ABNORMAL) POC RT, BLOOD GASES (05/20/2008 10:05 AM CDT) PH ARTERIAL 7.48(H) 7.35 - 7.45 [facility] BASE EXCESS ABG 1.1 -2.0 - 3.0 mmol/L [facility] GLUCOSE POC 112(H) 65 - 99 mg/dL [facility] HEMATOCRIT POC 24.0(L) 35.5 - 44.0 % [facility] O2 SAT EST ABG POC 100(H) 95 - 99 % [facility] TCO2, ABG POC 26(H) 19 - 24 mmol/L [facility] POTASSIUM POC 5.1(H) 3.5 - 4.9 mmol/L [facility] PCO2 ARTERIAL 33(L) 35 - 48 mm Hg [facility] COMMENT, GASES POC CPB #4 [facility] HCO3 ARTERIAL 25 22 - 26 mmol/L [facility] PATIENT'S TEMPERATURE 37.0 Degree C [facility] CALICUM IONIZED, WHOLE BLOOD 4.73(L) 4.76 - 5.16 mg/dL [facility] LACTIC ACID 1.7 0.5 - 2.2 mmol/L [facility] PO2 ARTERIAL 341(H) 83 - 108 mm Hg [facility] SODIUM POC 133(L) 135 - 145 mmol/L [facility] Blood specimen (specimen) 05/20/2008 10:05 AM CDT 05/20/2008 10:05 AM CDT us Brijesh Bird MD CHEMISTRY ORDERABLES Rosenda chavez Result INTERFACE SYSTEM Refer to clinic/hospital department [facility] CLIA# [id number] [address] [place] [address] * (ABNORMAL) POC RT, BLOOD GASES (05/20/2008 9:35 AM CDT) O2 SAT EST ABG POC 100(H) 95 - 99 % [facility] HEMATOCRIT POC 24.0(L) 35.5 - 44.0 % [facility] BASE EXCESS ABG 0.1 -2.0 - 3.0 mmol/L [facility] GLUCOSE POC 107(H) 65 - 99 mg/dL [facility] PCO2 ARTERIAL 38 35 - 48 mm Hg [facility] POTASSIUM POC 4.6 3.5 - 4.9 mmol/L [facility] PCO2 TEMP CORRECT 32 mm Hg [facility] TCO2, ABG POC 26(H) 19 - 24 mmol/L [facility] PATIENT'S TEMPERATURE 33.0 Degree C [facility] HCO3 ARTERIAL 25 22 - 26 mmol/L [facility] COMMENT, GASES POC CPB #3 [facility] PO2 ARTERIAL 251(H) 83 - 108 mm Hg [facility] PO2 TEMP CORRECT 233 mm Hg [facility] LACTIC ACID 1.9 0.5 - 2.2 mmol/L [facility] CALICUM IONIZED, WHOLE BLOOD 4.93 4.76 - 5.16 mg/dL [facility] PH ARTERIAL 7.42 7.35 - 7.45 [facility] PH TEMP CORRECT 7.48 [facility] SODIUM POC 134(L) 135 - 145 mmol/L [facility] Blood specimen (specimen) 05/20/2008 9:35 AM CDT 05/20/2008 9:35 AM CDT us Brijesh Bird MD CHEMISTRY ORDERABLES Rosenda chavez Result INTERFACE SYSTEM Refer to clinic/hospital department [facility] CLIA# [id number] [address] [place] [address] * (ABNORMAL) POC RT, BLOOD GASES (05/20/2008 9:06 AM CDT) GLUCOSE POC 91 65 - 99 mg/dL [facility] HEMATOCRIT POC 22.0(AA) 35.5 - 44.0 % [facility] PCO2 ARTERIAL 38 35 - 48 mm Hg [facility] PCO2 TEMP CORRECT 32 mm Hg [facility] TCO2, ABG POC 26(H) 19 - 24 mmol/L [facility] POTASSIUM POC 3.8 3.5 - 4.9 mmol/L [facility] PATIENT'S TEMPERATURE 33.0 Degree C [facility] COMMENT, GASES POC CPB #2 [facility] HCO3 ARTERIAL 25 22 - 26 mmol/L [facility] PO2 ARTERIAL 275(H) 83 - 108 mm Hg [facility] CALICUM IONIZED, WHOLE BLOOD 4.37(L) 4.76 - 5.16 mg/dL [facility] PO2 TEMP CORRECT 257 mm Hg [facility] LACTIC ACID 2.1 0.5 - 2.2 mmol/L [facility] PH ARTERIAL 7.42 7.35 - 7.45 [facility] PH TEMP CORRECT 7.48 [facility] SODIUM POC 136 135 - 145 mmol/L [facility] O2 SAT EST ABG POC 100(H) 95 - 99 % [facility] BASE EXCESS ABG 0.1 -2.0 - 3.0 mmol/L [facility] Blood specimen (specimen) 05/20/2008 9:06 AM CDT 05/20/2008 9:06 AM CDT us Brijesh Bird MD CHEMISTRY ORDERABLES Rosenda chavez Result Performing Organization Address City/State/[facility] Co de Phone Number INTERFACE SYSTEM Refer to clinic/hospital department [facility] CLIA# [id number] [address] [place] [address] * (ABNORMAL) POC RT, BLOOD GASES (05/20/2008 9:02 AM CDT) [facility] IONIZED, WHOLE BLOOD 4.45(L) 4.76 - 5.16 mg/dL [facility] LACTIC ACID 2.1 0.5 - 2.2 mmol/L [facility] PH TEMP CORRECT 7.39 [facility] SODIUM POC 135 135 - 145 mmol/L [facility] O2 SAT EST MVBG POC 67 40 - 70 % [facility] PO2 TEMP CORRECT 29 mm Hg [facility] GLUCOSE POC 92 65 - 99 mg/dL [facility] HEMATOCRIT POC 22.0(AA) 35.5 - 44.0 % [facility] PCO2 VENOUS 52(H) 38 - 50 mm Hg [facility] PCO2 TEMP CORRECT 44 mm Hg [facility] TCO2, MVBG POC 29(H) 22 - 26 mmol/L [facility] POTASSIUM POC 3.9 3.5 - 4.9 mmol/L [facility] PATIENT'S TEMPERATURE 33.0 Degree C [facility] BASE EXCESS VENOUS 1.2 -2.0 - 3.0 mmol/L [facility] COMMENT, GASES POC CPB #1 [facility] PO2 MVBG 38 25 - 40 mm Hg [facility] HCO3 MIXED VENOUS 27 22 - 29 mmol/L [facility] PH MVBG 7.33 7.32 - 7.43 [facility] Blood specimen (specimen) 05/20/2008 9:02 AM CDT 05/20/2008 9:02 AM CDT us Brijesh Bird MD CHEMISTRY ORDERABLES Rosenda chavez Result INTERFACE SYSTEM Refer to clinic/hospital department [facility] CLIA# [id number] [address] [place] [address] * (ABNORMAL) POC RT, BLOOD GASES (05/20/2008 8:43 AM CDT) PO2 ARTERIAL 259(H) 83 - 108 mm Hg [facility] SODIUM POC 137 135 - 145 mmol/L [facility] PH ARTERIAL 7.39 7.35 - 7.45 [facility] BASE EXCESS ABG 3.5(H) -2.0 - 3.0 mmol/L [facility] HEMATOCRIT POC 31.0(L) 35.5 - 44.0 % [facility] GLUCOSE POC 100(H) 65 - 99 mg/dL [facility] O2 SAT EST ABG POC 100(H) 95 - 99 % [facility] POTASSIUM POC 3.8 3.5 - 4.9 mmol/L [facility] TCO2, ABG POC 31(H) 19 - 24 mmol/L [facility] PCO2 ARTERIAL 48 35 - 48 mm Hg [facility] HCO3 ARTERIAL 29(H) 22 - 26 mmol/L [facility] COMMENT, GASES POC POST HEPARIN [facility] PATIENT'S TEMPERATURE 37.0 Degree C [facility] LACTIC ACID 1.2 0.5 - 2.2 mmol/L [facility] CALICUM IONIZED, WHOLE BLOOD 4.53(L) 4.76 - 5.16 mg/dL [facility] Blood specimen (specimen) 05/20/2008 8:43 AM CDT 05/20/2008 8:43 AM CDT us Brijesh Bird MD CHEMISTRY ORDERABLES Rosenda chavez Result INTERFACE SYSTEM Refer to clinic/hospital department [facility] CLIA# [id number] [address] [place] [address] * (ABNORMAL) POC RT, BLOOD GASES (05/20/2008 7:37 AM CDT) SODIUM POC 137 135 - 145 mmol/L [facility] PH ARTERIAL 7.43 7.35 - 7.45 [facility] BASE EXCESS ABG 3.8(H) -2.0 - 3.0 mmol/L [facility] GLUCOSE POC 95 65 - 99 mg/dL [facility] HEMATOCRIT POC 31.0(L) 35.5 - 44.0 % [facility] O2 SAT EST ABG POC 100(H) 95 - 99 % [facility] TCO2, ABG POC 30(H) 19 - 24 mmol/L [facility] POTASSIUM POC 3.5 3.5 - 4.9 mmol/L [facility] PCO2 ARTERIAL 43 35 - 48 mm Hg [facility] COMMENT, GASES POC POST INDUCTION [facility] HCO3 ARTERIAL 28(H) 22 - 26 mmol/L [facility] PATIENT'S TEMPERATURE 37.0 Degree C [facility] CALICUM IONIZED, WHOLE BLOOD 4.53(L) 4.76 - 5.16 mg/dL [facility] LACTIC ACID 1.5 0.5 - 2.2 mmol/L [facility] PO2 ARTERIAL 285(H) 83 - 108 mm Hg [facility] Blood specimen (specimen) 05/20/2008 7:37 AM CDT 05/20/2008 7:37 AM CDT us Brijesh Bird MD CHEMISTRY ORDERABLES Rosenda chavez Result Performing Organization Address City/State/[facility] Co de Phone Number INTERFACE SYSTEM Refer to clinic/hospital department [facility] CLIA# [id number] [address] [facility] [place] [address] * TYPE & CROSS ADDITIONAL PACKED CELLS (05/20/2008 6:30 AM CDT) Specimen of unknown material (specimen) 05/20/2008 6:30 AM CDT 05/20/2008 6:40 AM CDT Narrative INTERFACE SYSTEM - 05/20/2008 6:41 AM CDT please keep 2 units ahead for surgery us Viktoriya Gavin MD BLOOD BANK ORDERABLES Rosenda l Result Performing Organization Address City/[facility] Co de Phone Number INTERFACE SYSTEM Refer to clinic/hospital department * XR CHEST PA AND LATERAL (05/19/2008 10:01 PM CDT) Anatomical Region Laterality Modality Chest Other 05/19/2008 10:0 1 PM CDT Narrative 05/20/2008 7:14 AM CDT [facility] [address] [place], [place] [address] Admit Date: 05/19/2008 A[place]BE [place] Sex: F Admit Prov: BRIJESH BIRD Date: 1945 Primary Care Prov: CMRN: [id number] Room: [place] [address] SSN: [id number] IMAGING SERVICES Ordering Prov: N/A Accession Number: [id number] Interpretation CHEST, PA AND LATERAL, 05/19/2008 History: Angina, chest pain, preoperative examination. Findings: No infiltrate, pleural effusion or pneumothorax is present. The heart is enlarged. Mediastinum and pulmonary vascularity are normal. Impression: No active pulmonary disease. . Dictated by: NATE PEOPLES 05/19/2008 22:17 Electronically signed by: NATE PEOPLES 05/20/2008 07:13 Transcribed: 05/19/2008 22:32 SJ Procedure Note Nate Peoples MD - 05/20/2008 [facility] [address] [place], [place] [address] Admit Date: 05/19/2008 ABEBE [place] Sex: F Admit Prov: BRIJESH BIRD Date: 1945 Primary Care Prov: CMRN: [id number] Room: [place] [address] SSN: [id number] IMAGING SERVICES Ordering Prov: N/A Interpretation CHEST, [...] (05/19/2008 10:00 PM CDT) PRELIMINARY REPORT Pending [facility] FINAL REPORT No growth 24 hours [facility] 05/19/2008 10:0 0 PM CDT 05/19/2008 11:22 PM CDT Viktoriya Gavin MD MICROBIOLOGY - GENERAL ORD ERABLES Final Result INTERFACE SYSTEM Refer to clinic/hospital department [facility] CLIA# [id number] [address] [place] [address] * (ABNORMAL) URINALYSIS (05/19/2008 10:00 PM CDT) PH UA 5.0 5.0 - 8.0 [facility] WBC UA 13(H) 0 - 5 /HPF [facility] KETONES UA Negative Negative [facility] CLARITY UA Slt. Cloudy(A) Clear [facility] BILIRUBIN UA Negative Negative [facility] PROTEIN UA Negative Negative [facility] LEUKOCYTE ESTERASE UA 3+(A) Negative [facility] RBC UA 3 0 - 4 /HPF [facility] SPECIFIC GRAVITY UA 1.007 1.001 - 1.035 [facility] GLUCOSE UA Negative Negative [facility] BLOOD UA Negative Negative [facility] COLOR UA Colorless [facility] NITRITE UA Negative Negative [facility] EPITHELIAL CELLS, URINE Many /HPF [facility] UROBILINOGEN UA <1 <=1 mg/dL [facility] 05/19/2008 10:0 0 PM CDT 05/19/2008 10:31 PM CDT us Viktoriya Gavin MD URINE ORDERABLES Final Res ult Performing Organization Address [facility] Co de Phone Number INTERFACE SYSTEM Refer to clinic/hospital department [facility] CLIA# [id number] [address] [place] [address] * URINALYSIS WITH REFLEX CULTURE (05/19/2008 10:00 PM CDT) URINE CULTURE ORDER Culture ordered [facility] Comment: Criteria for a reflex culture [...] ult INTERFACE SYSTEM Refer to clinic/hospital department [facility] CLIA# [id number] [address] [place] [address] * CBC WITH DIFFERENTIAL (05/19/2008 4:15 PM CDT) MCV 93.0 82.0 - 99.0 fL [facility] PLATELETS 176 140 - 350 K/uL [facility] HEMOGLOBIN 12.5 11.8 - 14.8 g/dL [facility] RDW 13.1 11.5 - 14.5 % [facility] WBC 4.7 4.0 - 9.8 K/uL [facility] MCH 31.3 27.2 - 32.6 pg [facility] MPV 12.4 9.3 - 12.4 fL [facility] HEMATOCRIT 37.2 35.5 - 44.0 % [facility] RDW-STDEV 43.9 37.1 - 48.7 fL [facility] RBC 4.00 3.90 - 4.90 M/uL [facility] MCHC 33.6 31.5 - 35.5 % [facility] NEUTROPHIL ABSOLUTE 2.47 1.90 - 7.00 K/uL [facility] EOSINOPHILS 3 0 - 7 % [facility] EOSINOPHIL ABSOLUTE 0.16 0.00 - 0.70 K/uL [facility] LYMPHOCYTES 38 16 - 45 % [facility] LYMPHOCYTE ABSOLUTE 1.78 0.70 - 4.50 K/uL [facility] BASOPHILS 1 0 - 2 % [facility] BASOPHILS ABSOLUTE 0.04 0.00 - 0.20 K/uL [facility] MONOCYTES 5 3 - 13 % [facility] MONOCYTE ABSOLUTE 0.22 0.10 - 1.30 K/uL [facility] NEUTROPHILS 53 45 - 70 % [facility] Blood specimen (specimen) 05/19/2008 4:15 PM CDT 05/19/2008 4:32 PM CDT us Viktoriya Gavin MD HEMATOLOGY ORDERABLES Edit ed Performing Organization Address [facility] de Phone Number INTERFACE SYSTEM Refer to clinic/hospital department [facility] CLIA# [id number] [address] [place] [address] * POC ACTIVATED CLOTTING TIME (05/19/2008 2:25 PM CDT) ACT POC 121 Seconds [facility] Comment: ansiNote sheath pull range change effective 02/24/2006. ACT value for sheath pull at [facility] has been established to be < or = to 140. (See also Nursing Procedures for sheath pull in related nursing areas) Blood specimen (specimen) 05/19/2008 2:25 PM CDT 05/19/2008 2:25 PM CDT us Brijesh Bird MD POINT OF CARE TESTING Fin al Result Performing Organization Address [facility] de Phone Number INTERFACE SYSTEM Refer to clinic/hospital department [facility] CLIA# [id number] [address] [place] [address] * (ABNORMAL) COMPREHENSIVE METABOLIC PANEL (05/19/2008 1:25 PM CDT) AST 18 12 - 32 U/L [facility] BUN 14 6 - 20 mg/dL [facility] CALCIUM 9.1 8.6 - 10.2 mg/dL [facility] ALBUMIN 3.6 3.4 - 4.8 g/dL [facility] CHLORIDE 104 96 - 108 mmol/L [facility] CREATININE 0.70 0.51 - 0.95 mg/dL [facility] ALT 19 0 - 31 U/L [facility] SODIUM 137 135 - 145 mmol/L [facility] ALKALINE PHOSPHATASE 75 35 - 104 U/L [facility] CO2 25 22 - 30 mmol/L [facility] BILIRUBIN TOTAL 0.2 0.2 - 1.0 mg/dL [facility] POTASSIUM 3.7 3.5 - 4.9 mmol/L [facility] TOTAL PROTEIN 5.9(L) 6.3 - 8.6 g/dL [facility] GLUCOSE 88 65 - 99 mg/dL [facility] GFR, >60 >=60 mL/min/1. 7 sq meter [facility] GFR >60 >=60 mL/min/1. 7 sq meter [facility] Comment: Modification of Diet in Renal Disease (MDRD) study formula. Estimated GFR rate interpretative information for both Americans and non- Americans is available on the [facility] at: [email or web address] Select: Lab Policies and Procedures Select: Reference Ranges - GFR Blood specimen (specimen) 05/19/2008 1:25 PM CDT 05/19/2008 1:39 PM CDT us Brijesh Bird MD CHEMISTRY ORDERABLES Edit ed Performing Organization Address [facility] Phone Number INTERFACE SYSTEM Refer to clinic/hospital department [facility] CLIA# [id number] [address] [place] [address] * POC ACTIVATED CLOTTING TIME (05/19/2008 1:19 PM CDT) ACT POC 161 Seconds [facility] Comment: Note sheath pull range change effective 02/24/2006. ACT value for sheath pull at [facility] has been established to be < or = to 140. (See also Nursing Procedures for sheath pull in related nursing areas) Blood specimen (specimen) 05/19/2008 1:19 PM CDT 05/19/2008 1:19 PM CDT Brijesh Bird MD POINT OF CARE TESTING Fin al Result Performing Organization Address [facility] Phone Number INTERFACE SYSTEM Refer to clinic/hospital department [facility] CLIA# [id number] [address] [place] [address] * TYPE AND CROSSMATCH (05/19/2008 12:48 PM CDT) HISTORY CHECK No Historical ABO/Rh [facility] SPECIMEN LIFE 3 days from drawdate [facility] ABO/RH TYPE A Negative [facility] ANTIBODY SCREEN Negative [facility] Blood specimen (specimen) 05/19/2008 12:48 PM CDT us Viktoriya Gavin MD BLOOD BANK ORDERABLES Edit ed Performing Organization Address [facility] de Phone Number INTERFACE SYSTEM Refer to clinic/hospital department [facility] CLIA# [id number] [address] [place] [address] * CL CORONARY ANGIOGRAM (05/19/2008 11:59 AM CDT) Narrative INTERFACE SYSTEM - 05/19/2008 11:59 AM CDT [facility] [address] [place] [address] [email or web address] [facility] Comprehensive Report Patient: Abebe Cunningham Study ID: [id number] Gender: F : 1945 Age: 63 years Race: 1 Room: Bed: Height: 67 in ( 170.2 cm ) Study Date: May 19, 2008 Patient status: Outpatient Weight: 222 lb ( 100.9 kg ) Access. #: [id number] POC: Attending MD: Kamini Performing MD: Kamini [...] Note Provider, Historical - 05/19/2008 [place] [address] [place] [address] [email or web address] [facility] Comprehensive Report Patient: Abebe Cunningham Study ID: [id number] Gender: F : 1945 Age: 63 years Race: 1 Room: Bed: Height: 67 in ( 170.2 cm ) Study Date: May 19, 2008 Patient status: Outpatient Weight: 222 lb ( 100.9 kg ) Access. #: [id number] POC: Attending MD: Kamini Performing MD: Kamini [...] ORDERABLES Fi nal Result Performing Organization Address [facility] Phone Number INTERFACE SYSTEM Refer to clinic/hospital department * POC ACTIVATED CLOTTING TIME (05/19/2008 11:53 AM CDT) ACT POC 192 Seconds [facility] Comment: Note sheath pull range change effective 02/24/2006. ACT value for sheath pull at [facility] has been established to be < or = to 140. (See also Nursing Procedures for sheath pull in related nursing areas) Blood specimen (specimen) 05/19/2008 11:53 AM CDT 05/19/2008 11:53 AM CDT us Brijesh Bird MD POINT OF CARE TESTING Fin al Result Performing Organization Address [facility] Phone Number INTERFACE SYSTEM Refer to clinic/hospital department [facility] CLIA# [id number] [address] [place] [address] * POC ACTIVATED CLOTTING TIME (05/19/2008 10:34 AM CDT) ACT POC 228 Seconds [facility] Comment: Note sheath pull range change effective 02/24/2006. ACT value for sheath pull at [facility] has been established to be < or = to 140. (See also Nursing Procedures for sheath pull in related nursing areas) Blood specimen (specimen) 05/19/2008 10:34 AM CDT 05/19/2008 10:34 AM CDT Brijesh Bird MD POINT OF CARE TESTING Fin al Result Performing Organization Address [facility] Phone Number INTERFACE SYSTEM Refer to clinic/hospital department [facility] CLIA# [id number] [address] [place] [address] documented in this encounter Visit Diagnoses Diagnosis Other and unspecified angina pectoris documented in this encounter Care Teams Bender Machine Operator Relationship Specialty Start Date End Date Murray Bourne MD [address] [place] [id number] PCP - General Family Practice 05/25/20 documented as of this encounter
--- OUTSIDE RECORDS SUMMARY | 2024-12-27 13:04 | XMS_ITS | Referral Summary ---
Author Organization [facility] [address] Address [address] [place] [address] Care Team Providers Care Petroleum Refinery Operator Name Role Phone Murray Bourne MD Primary Care Provider Encounters Date Type Department Care Team Description 11/12/2024 Orders Only [facility] Health Information Management [address] [place] [address] Derrick Bird MD from Last 3 Months [...] Overview (12/08/2016): Pure hypercholesterolemia Coronary arteriosclerosis in [place] artery 01/13 Overview (12/08/2016): Coronary arteriosclerosis in [place] artery Social History Tobacco Use Types Packs/Day [...] 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
--- OUTSIDE RECORDS SUMMARY | 2024-12-27 13:04 | XMS_ITS | Encounter Summary ---
Author Organization [facility] Address [address] [facility] [place] [address] Care Team Providers Care Operating Engineer Apprentice Name Role Phone Unavailable Primary Care Provider Unavailabl e Encounter Details Date Type Department Care Team (Late st Contact Info) Description 02/01/2023 Lab Requisition [facility] - Pathology Lab [address] [place] [address] Bola Arzola MD [facility] [address] [address] Illness, unspecified Social History Tobacco Use Types Packs/Day Years Used Date Smoking Tobacco: Never Assessed Comments Unknown Sex and Gender Information Value Date Recorded Sex Assigned at Not on file Legal Sex Female 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 - No evidence of lymphoma, high-grade myeloid neoplasm, or metastatic disease. - See description. Peripheral blood smear: - Macrocytic anemia. - See description. 02/02/2023 9:35 AM [facility] Comment Immunohistochemistry is performed to assess staining cells in an architectural context: CD3 and CD20 highlight the reactive appearing lymphoid aggregates. CD34 is negative for increased blasts. CD138 is negative for increased plasma cells. 02/02/2023 9:35 AM [facility] Peripheral Smear Description RBC: macrocytic anemia. WBC: normal in number and morphology. Platelets: normal in number and morphology. 02/02/2023 9:35 AM [facility] Bone Marrow Aspirate Differential count (200 cells): normal differential count.. Specimen quality: adequate. Spicules: many. Trilineage Hematopoiesis: present. Myeloid:Erythroid ratio: normal. Myeloid Maturation: normal. Erythroid Maturation: normal. Megakaryocyte morphology: normal size. Storage iron (by special stain): increased. Sideroblastic iron (by special stain): no ring sideroblasts. 02/02/2023 9:35 AM [facility] Bone Marrow Core [...] similar to core biopsy. 02/02/2023 9:35 AM [facility] Flow Cytometry Summary Bone marrow, flow cytometric immunophenotypic analysis ([id number]): - No evidence of non-Hodgkin lymphoma or high-grade myeloid neoplasm. 02/02/2023 9:35 AM CDT [facility] Clinical History Macrocytic anemia. History of colon cancer. 02/02/2023 9:35 AM CDT [facility] Materials Received Received are 21 slide(s), and 3 blocks (A1; A2, B1) labeled [id number] along with a copy of the outside pathology report. [place] [address]. All original materials are returned to the referring institution, along with a copy of our final report. 02/02/2023 9:35 AM CDT [facility] Pathologist Location at [facility] 02/02/2023 9:35 AM T [facility] PATHOLOGY LAB Disclaimer The performance characteristics of all immunohistochemical and indirect immunofluorescence stains (if any) cited in this report were determined by the Histopathology Laboratory of [facility]. Some of these tests were developed by [...] attending (teaching) pathologist. 02/02/2023 9:35 AM T [facility] PATHOLOGY [facility] Embedded Images 02/02/2023 9:35 AM CDT [facility] Pathology/Cytology BONE MARROW SPECIMEN / Unknown 01/26/2023 9:23 AM CDT 02/01/2023 8:23 AM CDT Miscellaneous samples (specimen) BONE MARROW SPECIMEN / Unknown 01/26/2023 9:23 AM CDT 02/01/2023 8:23 AM CDT Bola Arzola MD LAB - PATHOLOGY/CYTOLOGY ORDERAB LES Final Result [facility] PATHOLOGY LAB [address] [phone] documented in this encounter Visit Diagnoses Diagnosis Illness, unspecified documented in this encounter
--- OUTSIDE RECORDS SUMMARY | 2024-12-27 13:04 | XMS_ITS | Encounter Summary ---
Author Organization [facility] Address [address] [place] [address] Care Team Providers Care It Help Desk Manager Name Role Phone Murray Bourne MD Primary Care Provider Encounter Details Date Type Department Care Team (Latest Contact Info) Description 08/18/2006 Outpatient Historical HIS CARD LUBRICATOR GRANULATOR Derrick Bird MD [address] [facility] [address] [place] [address] Coronary Atherosclerosis of [place] Coronary Artery (Primary Dx) Social History Tobacco Use Types Packs/Day Years Used Date Smoking Tobacco: Never Assessed Comments Unknown Sex and Gender Information Value Date Recorded Sex Assigned at Not on file Legal Sex Female 5:09 AM TONG SETTER Gender Identity Not on file Sexual Orientation Not on file documented as of this encounter Plan of Treatment Upcoming Encounters Date Type Department Care Team (Late st Contact Info) Description 01/06/2025 2:00 PM CDT Office Visit [facility] Oncology and Hematology - Real [address] [facility] [address] [place] [address] Koby Vinson MD [address] [facility] [address] [place] [address] documented as of this encounter Visit Diagnoses Diagnosis Coronary atherosclerosis of [place] coronary artery- Primary documented in this encounter Care Teams It Help Desk Manager Relationship Specialty Start Date End Date Murray Bourne MD [address] [place] [address] PCP - General Family Practice 05/25/20 documented as of this encounter
--- OUTSIDE RECORDS SUMMARY | 2024-12-27 13:04 | XMS_ITS | CONTINUITY OF CARE DOCUMENT ---
Author Name mela plaza Address Unknown Organization [facility] Address [address] [place] [address] [address] [place] [address] Phone [phone] Care Team Providers Care Floor Sweeper Name Role Phone Annalisa YAÑEZ, Silvio Unavailable [phone] JOEY BOSWELL MD Unavailable [phone] INSURANCE PROVIDERS Payer name Policy type / Coverage type [place] red alliance party ID UHC MEDICARE COMPLETE HMO Other [id number]
--- OUTSIDE RECORDS SUMMARY | 2024-12-27 13:04 | XMS_ITS | Encounter Summary ---
Author Organization [facility] Address [address] [facility] [address] [place] [address] Care Team Providers Care Senior Brand Manager Name Role Phone Rangel Mejia Primary Care Provider [phone] Murray Bourne MD Primary Care Provider Encounter Details Date Type Department Care Team (Late st Contact Info) Description 12/13/2016 Orders Only [facility] ProviderNeftaly MD [address] [place] [address] Social History Tobacco Use Types Packs/Day Years Used Date Smoking Tobacco: Former Cigarettes Q uit: 09/04/2007 Alcohol Use Standard Drinks/Week Comments Yes 0 (1 standard drink = 0.6 oz pur e alcohol) Comments Unknown Sex and Gender Information Value Date Recorded Sex Assigned at Not on file Legal Sex Female 2:02 AM DESIGN STUDIO CONSULTANT Gender Identity Female 04/28/2020 9:32 AM CDT [...] on filedocumented in this encounter Care Teams Senior Brand Manager Relationship Specialty Start Date End Date Rangel Mejia [address] [place] [address] PCP - General 12/02/16 04/02/18 Murray Bourne MD [address] [facility] [address] [place] [address] PCP - General Family Practice 05/16/23 documented as of this encounter
--- OUTSIDE RECORDS SUMMARY | 2024-12-27 13:04 | XMS_ITS | Clinical Summary ---
Author Organization [facility] Address [address] [place] [address] Care Team Providers Care Bag Printer Name Role Phone Unavailable Primary Care Provider Unavailabl e Source Comments [facility],non-owned Affiliates and Associated Physician Practices is amultiple site organization consisting of ambulatory clinics and hospital sitesin [place], [place], [place] and [place]. This disclosure is being madepursuant to the Care Everywhere program and may not contain all information available regarding this patient. Last updated 18.[facility] Social History Tobacco Use Types Packs/Day Years Used Date Smoking Tobacco: Never Assessed Comments Unknown Sex and Gender Information Value Date Recorded Sex Assigned at Not on file Legal Sex Female 5:54 AM HOMEMAKER COMPANION Gender Identity Not on file Sexual Orientation [...] complete this topic Insurance MANAGED MEDICARE ADV [place] [id number] [facility] MANAGED MEDICARE ADV [place] [id number] AETNA MEDICARE ADV AETNA MEDICARE ADV SELF PAY NO INSURANCE Member Subscriber Plan / Payer (Ef fective for All Dates) Name:Abebe Cunningham Member ID:Not on file Relation to Subscriber:Not on file Name:ABEBE CUNNINGHAM Subscriber ID:Not on file (Home) Address: [address] [place] [address] Payer ID:Not on file Group ID:Not on file Type:Self Pay Address: [place], [place] MANAGED MEDICARE ADV MANAGED MEDICARE ADV
--- OUTSIDE RECORDS SUMMARY | 2024-12-27 13:04 | XMS_ITS | Encounter Summary ---
Author Organization [facility] Address [address] [facility] [place] [address] Care Team Providers Care Science Teacher Name Role Phone Unavailable Primary Care Provider Unavailabl e Encounter Details Date Type Department Care Team (Late st Contact Info) Description 01/26/2023 Lab Requisition [facility] - Pathology Lab [address] [place] [address] Bola Arzola MD [facility] [address] [address] Anemia in other chronic diseases classified elsewhere Social History Tobacco Use Types Packs/Day Years Used Date Smoking Tobacco: Never Assessed Comments Unknown Sex and Gender Information Value Date Recorded Sex Assigned at Not on file Legal Sex Female 5:54 AM CLINICAL DOCUMENT IMPROVEMENT EDUCATOR Gender Identity Not on file Sexual Orientation [...] AM CDT) Case Report Flow Cytometry Case: [id number] Authorizing Provider: Bola Arzola MD Collected: 01/26/2023 09:23 AM Ordering Location: [facility] Lab Received: 01/26/2023 12:48 PM Pathologist: Dav Hinds MD Specimen: Bone Marrow 01/26/2023 5:16 PM CDT [facility] Final Diagnosis Bone marrow, flow cytometric immunophenotypic analysis: - No evidence of non-Hodgkin lymphoma or high-grade myeloid neoplasm. - See interpretation. 01/26/2023 5:16 PM [facility] PATH[facility] Flow Cytometry Interpretation The [...] the flow cytometry specimen is reviewed for software quality tester purposes. The bone marrow aspirate specimen shows no evidence of involvement by non-Hodgkin lymphoma or a high-grade myeloid neoplasm. Correlation with clinical findings, the concurrent bone marrow core biopsy, and relevant cytogenetic/molecu lar studies is required. 01/26/2023 5:16 PM [facility] Flow Cytometry Results Differential Result Comment Flow Cell Count /uL 21,300 Total Viability % 94.0 Lymphocytes % 17 Dim CD45 Region % 11 Monocytes % 9 Granulocytes % 63 01/26/2023 5:16 PM [facility] Reason for test Anemia in other chronic diseases classified elsewhere 01/26/2023 5:16 PM [facility] Client Specimen ID # [id number] 01/26/2023 5:16 PM [facility] Number of markers 10 were performed. A-2 Flow CD10 A-3 Flow CD13 A-5 Flow CD20 A-1 Flow CD5 A-4 Flow CD19 A-6 Flow CD33 A-7 Flow CD34 A-8 Flow CD45 A-9 Lima+CD19+ A-10 Lambda+CD19+ 01/26/2023 5:16 PM [facility] Pathologist Location at [facility] 01/26/2023 5:16 PM [facility] Disclaimer Test performed at [facility], [address] [place], [place], [address]. *The established laboratory minimum viability is 70%. [...] complexity clinical testing. 01/26/2023 5:16 PM CDT [facility] Embedded Images 5:16 PM CDT [facility] Pathology/Cytolo gy BONE MARROW SPECIMEN / Unknown 01/26/2023 9:23 AM CDT 01/26/2023 12:48 PM CDT Bola Arzola MD LAB - PATHOLOGY/CYTOLOGY ORDERAB LES Final Result [facility] [address] [place] [address], [facility] [phone] documented in this encounter Visit Diagnoses Diagnosis Anemia in other chronic diseases classified elsewhere documented in this encounter
--- OUTSIDE RECORDS SUMMARY | 2024-12-27 13:04 | XMS_ITS | Encounter Summary ---
Author Organization [facility] Address [address] [place] [address] Care Team Providers Care Nurse Office Name Role Phone Murray Bourne MD Primary Care Provider Reason for Visit * Reason Onset Date Comments Needs hospitalist 06/18/2020 Gave message t o TRIXIE Mak on cell phone Encounter Details Date Type Department Care Team (Late Contact Info) Description 06/18/2020 Telephone [facility] Admitting [address] [place] [address] [place] [address] 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
== END 2024-12-27 12:59 | disposition home or self-care (01) ==
LOC: ANHIMG 13:00
PROVIDERS: PCP Family Medicine; Visit Provider Nurse Practitioner
DX: M85.88 Other specified disorders of bone density and structure, other site (principal); M81.0 Age-related osteoporosis without current pathological fracture; M85.852 Other specified disorders of bone density and structure, left thigh; M85.851 Other specified disorders of bone density and structure, right thigh
CPT/HCPCS: 77080

== ENCOUNTER 2025-01-03 12:04 | Outpatient (CLI) | payer MEDICARE, SELFPAY ==
[2025-01-03 14:08] LABS: Hematocrit 36.9 % (37.0-47.0); Hemoglobin 11.8 g/dL (12.0-15.0); Mean Corpuscular Hemoglobin 30.7 pg (26-34); Mean Corpuscular Volume 96.1 fl (80-100); Mean Platelet Volume 11.8 fl (7.4-10.4); Platelet Count Result 185 k/mm3 (150-375); Red Blood Count 3.84 M/mm3 (4.2-5.4); White Blood Count 4.9 K/mm3 (4.5-10.0)
[2025-01-03 16:30] LABS: Iron 80 ug/dL (37-170)
[2025-01-03 16:42] LABS: Percent Iron Saturation 25 % (20-50)
--- OUTSIDE RECORDS SUMMARY | 2025-01-04 13:02 | XMS_ITS | Encounter Summary ---
Author Organization [facility] Address [address] [place] [address] Care Team Providers Care Twenty One Dealer Name Role Phone Murray Bourne MD Primary Care Provider Encounter Details Date Type Department Care Team (Latest Contact Info) Description 06/19/2008 Outpatient Historical HIS [facility] JAVIER Willis, Vitkoriya Allen MD [address] [place], [place] [id number] [place] [address] Coronary Atherosclerosis of [place] Coronary Artery Social History Tobacco Use Types Packs/Day Years Used Date Smoking Tobacco: Never Assessed Comments Unknown Sex and Gender Information Value Date Recorded Sex Assigned at Not on file 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 Gender Identity Not on file Sexual Orientation Not on file documented as of this encounter Plan of Treatment Upcoming Encounters Date Type Department Care Team (Late st Contact Info) Description 01/06/2025 2:00 PM CDT Office Visit [facility] Oncology and Hematology - Real [address] [facility] [address] [place] [address] Koby Vinson MD [address] [facility] [address] [place] [address] documented as of this encounter Procedures Procedure Name Priority Date/Time Associated Diagnosis Comments XR CHEST PA AND LATERAL 2 VW Routine 06/19/2008 12:37 PM CDT documented in this encounter Results * XR CHEST PA AND LATERAL (06/19/2008 12:37 PM CDT) Anatomical Region Laterality Modality Chest Other 06/19/2008 12:3 7 PM CDT Narrative 06/19/2008 12:42 PM CDT [address] [address] Admit Date: 06/19/2008 YVONNE CUNNINGHAM Sex: F Admit Prov: VIKTORIYA WILLIS Date: 1945 Primary Care Prov: CMRN: [id number] [id number] Ordering Prov: N/A Accession Number: [id number] Interpretation Chest 2 views 06/19/2008. History: Coronary vascular disease. Findings: Comparison study is dated 05/23/2008. Small left pleural effusion has decreased. The left lower lobe atelectasis has resolved . No pneumothorax is seen. The cardiac silhouette is mildly enlarged. . Dictated by: ZOEY COWART 06/19/2008 12:40 Electronically signed by: ZOEY COWART 06/19/2008 12:41 Procedure Note Zoey Cowart - 06/19/[address] [address] Admit Date: 06/19/2008 LENINSARWATYVONNE A Sex: F Admit Prov: VIKTORIYA WILLIS Date: 1945 Primary Care Prov: CMRN: [id number] [id number] [facility] Ordering Prov: N/A Interpretation Chest [...] encounter Visit Diagnoses Diagnosis Coronary atherosclerosis of [place] coronary artery documented in this encounter Care Teams Twenty One Dealer Relationship Specialty Start Date End Date Murray Bourne MD [address] [place] [address] PCP - General Family Practice 05/25/20 documented as of this encounter
--- OUTSIDE RECORDS SUMMARY | 2025-01-04 13:03 | XMS_ITS | Encounter Summary ---
Author Organization [facility] Address [address] [facility] [address] [place] [address] Care Team Providers Care Hose Wrapper Name Role Phone Rangel Mejia Primary Care Provider [phone] Murray Bourne MD Primary Care Provider Encounter Details Date Type Department Care Team (Late st Contact Info) Description 12/13/2016 Orders Only [facility] ProviderNeftaly MD [address] [place] [address] Social History Tobacco Use Types Packs/Day Years Used Date Smoking Tobacco: Former Cigarettes Q uit: 09/04/2007 Alcohol Use Standard Drinks/Week Comments Yes 0 (1 standard drink = 0.6 oz pur e alcohol) Comments Unknown Sex and Gender Information Value Date Recorded Sex Assigned at Not on file Legal Sex Female 2:02 AM 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
--- OUTSIDE RECORDS SUMMARY | 2025-01-04 13:03 | XMS_ITS | Encounter Summary ---
Author Organization [facility] Address [address] [place] [address] Care Team Providers Care Inspector Structural Bonding Name Role Phone Murray Bourne MD Primary Care Provider Reason for Visit * Reason Onset Date Comments Needs hospitalist 06/18/2020 Gave message t o MEAT MOLDER Aubree on cell phone Encounter Details Date Type Department Care Team (Late Contact Info) Description 06/18/2020 Telephone [facility] Admitting [address] [place] [address] [place] [address] [facility] [address] [place], [place] [id number] Needs hospitalist (Gave message to MEAT MOLDER Aubree on cell phone) Social History Tobacco Use Types Packs/Day Years Used Date Smoking Tobacco: Every Day Cigarettes Smokeless Tobacco: Never Alcohol Use Standard Drinks/Week Comments Yes 0 (1 standard drink = 0.6 oz pur e alcohol) twice a year Comments No Sex and Gender Information Value Date Recorded Sex Assigned at Not on file 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 Gender Identity Not on file Sexual [...] CDT Office Visit [facility] Oncology and Hematology - Real [address] [facility] [address] [place] [address] Koby Vinson MD [address] [facility] [address] [place] [address] documented as of this encounter Visit Diagnoses Not on filedocumented in this encounter Care Teams Inspector Structural Bonding Relationship Specialty Start Date End Date Murray Bourne MD [address] [place] [address] PCP - General Family Practice 05/25/20 documented as of this encounter
--- OUTSIDE RECORDS SUMMARY | 2025-01-04 13:03 | XMS_ITS | Referral Summary ---
Author Organization [facility] [address] Address [address] [place] [address] Care Team Providers Care Payment Rep Name Role Phone Murray Bourne MD Primary Care Provider Encounters Date Type Department Care Team Description 11/12/2024 Orders Only [facility] Health Information Management [address] [place] [address] Derrick Bird MD from Last 3 Months [...] Overview (12/08/2016): Pure hypercholesterolemia Coronary arteriosclerosis in [place] artery 01/13 Overview (12/08/2016): Coronary arteriosclerosis in [place] artery Social History Tobacco Use Types Packs/Day [...] on file Legal Sex Female 2:02 AM PROJECT SCIENTIST Gender Identity Female 04/28/2020 9:32 AM CDT Sexual Orientation Straight 04/28/2020 9: 32 AM CDT Last Filed Vital Signs Vital Sign Reading Time Taken Comments Blood Pressure 124/68 07/26/2024 10:13 AM PROJECT SCIENTIST Pulse 63 07/26/2024 10:13 AM PROJECT SCIENTIST Temperature - - Respiratory Rate 12 03/14/2017 11:29 AM CDT Oxygen Saturation 97% 07/26/2024 10:13 AM PROJECT SCIENTIST Inhaled Oxygen Concentration - - Weight 93.4 kg (206 lb) 07/26/2024 10:13 AM PROJECT SCIENTIST Height 170.2 cm (5' 7 ) 07/26/2024 10:13 AM PROJECT SCIENTIST Body Mass Index 32.26 07/26/2024 10:13 AM PROJECT SCIENTIST Plan of Treatment Not on file Procedures Procedure Name Priority Date/Time Associated Diagnosis Comments GI - RESULT 11/12/2024 from Last 3 Months Results * GI - RESULT (11/12/2024) Anatomical Region Laterality Modality Other Derrick Bird MD Edited R esult - Final from Last 3 Months Insurance AETNA MEDICARE GOLD Care Teams Payment Rep Relationship Specialty Start Date End Date Murray Bourne MD [address] [facility] [address] [address] PCP - General Family Practice 05/16/23
--- OUTSIDE RECORDS SUMMARY | 2025-01-04 13:03 | XMS_ITS | Clinical Summary ---
Author Organization [facility] [employer] Address [address] [place] [address] Care Team Providers Care Soils Technician Name Role Phone Unavailable Primary Care Provider Unavailabl e Source Comments [facility] [employer],non-owned Affiliates and Associated Physician Practices is amultiple site organization consisting of ambulatory clinics and hospital sitesin [place], [place], [place] and [place]. This disclosure is being madepursuant to the Care Everywhere program and may not contain all information available regarding this patient. 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 Gender Identity Not on file Sexual Orientation [...] complete this topic Insurance MANAGED MEDICARE ADV [place] [id number] [facility] MANAGED MEDICARE ADV [place] [id number] AETNA MEDICARE ADV AETNA MEDICARE ADV SELF PAY NO INSURANCE Member Subscriber Plan / Payer (Ef fective for All Dates) Name:Abebe Cunningham Member ID:Not on file Relation to Subscriber:Not on file Name:ABEBE CUNNINGHAM Subscriber ID:Not on file (Home) Address: [address] [place] [address] Payer ID:Not on file Group ID:Not on file Type:Self Pay Address: [place], [place] MANAGED MEDICARE [place] [address]
--- OUTSIDE RECORDS SUMMARY | 2025-01-04 13:03 | XMS_ITS | Encounter Summary ---
Author Organization [facility] Address [address] [place] [address] Care Team Providers Care Cooker Meal Name Role Phone Murray Bourne MD Primary Care Provider Encounter Details Date Type Department Care Team (Latest Contact Info) Description 08/18/2006 Outpatient Historical HIS CARD RESIDENCE LEASING AGENT Derrick Bird MD [address] [facility] [address] [place] [address] Coronary Atherosclerosis of [place] Coronary Artery (Primary Dx) Social History Tobacco Use Types Packs/Day Years Used Date Smoking Tobacco: Never Assessed Comments Unknown Sex and Gender Information Value Date Recorded Sex Assigned at Not on file 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 Sex Female 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 Gender Identity Not on file Sexual Orientation Not on file documented as of this encounter Plan of Treatment Upcoming Encounters Date Type Department Care Team (Late st Contact Info) Description 01/06/2025 2:00 PM CDT Office Visit [facility] Oncology and Hematology - Real [address] [facility] [address] [place] [address] Koby Vinson MD [address] [facility] [address] [place] [address] documented as of this encounter Visit Diagnoses Diagnosis Coronary atherosclerosis of [place] coronary artery- Primary documented in this encounter Care Teams Cooker Meal Relationship Specialty Start Date End Date Murray Bourne MD [address] [place] [address] PCP - General Family Practice 05/25/20 documented as of this encounter
--- OUTSIDE RECORDS SUMMARY | 2025-01-04 13:03 | XMS_ITS | Encounter Summary ---
Author Organization [facility] Address [address] [facility] [place] [address] Care Team Providers Care Test Engineering Technician Name Role Phone Unavailable Primary Care Provider Unavailabl e Encounter Details Date Type Department Care Team (Late st Contact Info) Description 02/01/2023 Lab Requisition [facility] - Pathology Lab [address] [place] [address] Bola Arzola MD [facility] [address] [address] Illness, unspecified Social History Tobacco Use Types Packs/Day Years Used Date Smoking Tobacco: Never Assessed Comments Unknown Sex and Gender Information Value Date Recorded Sex Assigned at Not on file 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 Gender Identity Not on file Sexual Orientation [...] Report Bone Marrow Patholog y Report Case: [id number] Authorizing Provider: Bola Arzola MD Collected: 01/26/2023 09:23 AM Ordering Location: [facility] Pathology Lab Received: 02/01/2023 08:23 AM Pathologist: Chana Powers MD Specimens: A) - Bone Marrow Clot, bone marrow aspirate B) - Bone Marrow Core, right hip 02/02/2023 9:35 AM [facility] PATHOLOGY LAB Final Diagnosis Bone marrow, aspirate, clot section, and core biopsy: - Normocellular marrow with maturing trilineage hematopoiesis. - No evidence of lymphoma, high-grade myeloid neoplasm, or metastatic disease. - See description. Peripheral blood smear: - Macrocytic anemia. - See description. 02/02/2023 9:35 AM [facility] PATHOLOGY LAB Comment Immunohistochemistry is performed to assess staining cells in an architectural context: CD3 and CD20 highlight the reactive appearing lymphoid aggregates. CD34 is negative for increased blasts. CD138 is negative for increased plasma cells. 02/02/2023 9:35 AM [facility] PATHOLOGY LAB Peripheral Smear Description RBC: macrocytic anemia. WBC: normal in number and morphology. Platelets: normal in number and morphology. 02/02/2023 9:35 AM [facility] PATHOLOGY LAB Bone Marrow Aspirate Differential count (200 cells): normal differential count.. Specimen quality: adequate. Spicules: many. Trilineage Hematopoiesis: present. Myeloid:Erythroid ratio: normal. Myeloid Maturation: normal. Erythroid Maturation: normal. Megakaryocyte morphology: normal size. Storage iron (by special stain): increased. Sideroblastic iron (by special stain): no ring sideroblasts. 02/02/2023 9:35 AM [facility] PATHOLOGY LAB Bone Marrow Core Biopsy and [...] similar to core biopsy. 02/02/2023 9:35 AM [facility] PATHOLOGY LAB Flow Cytometry Summary Bone marrow, flow cytometric immunophenotypic analysis ([id number]): - No evidence of non-Hodgkin lymphoma or high-grade myeloid neoplasm. 02/02/2023 9:35 AM CDT [facility] Clinical History Macrocytic anemia. History of colon cancer. 02/02/2023 9:35 AM CDT [facility] Materials Received Received are 21 slide(s), and 3 blocks (A1; A2, B1) labeled [id number] along with a copy of the outside pathology report. [place] [address]. All original materials are returned to the referring institution, along with a copy of our final report. 02/02/2023 9:35 AM CDT [facility] PATH[facility] Pathologist Location at [facility] 02/02/2023 9:35 AM T [facility] PATHOLOGY LAB Disclaimer The performance characteristics of all immunohistochemical and indirect immunofluorescence stains (if any) cited in this report were determined by the Histopathology Laboratory of [facility]. Some of these tests were developed [...] attending (teaching) pathologist. 02/02/2023 9:35 AM T [facility] PATHOLOGY LAB Embedded Images 02/02/2023 9:35 AM CDT [facility] PATHOLOGY LAB Pathology/Cytology BONE MARROW SPECIMEN / Unknown 01/26/2023 9:23 AM CDT 02/01/2023 8:23 AM CDT Miscellaneous samples (specimen) BONE MARROW SPECIMEN / Unknown 01/26/2023 9:23 AM CDT 02/01/2023 8:23 AM CDT Bola Arzola MD LAB - PATHOLOGY/CYTOLOGY ORDERAB LES Final Result [facility] PATHOLOGY LAB [address] [phone] documented in this encounter Visit Diagnoses Diagnosis Illness, unspecified documented in this encounter
--- OUTSIDE RECORDS SUMMARY | 2025-01-04 13:03 | XMS_ITS | Clinical Summary ---
Author Organization [facility] Address [address] [place] [address] Phone Care Team Providers Care Repeater Chief Name Role Phone Murray Bourne MD Primary [...] bypass graft) 03/14/20 17 Coronary arteriosclerosis in [place] artery 01/13 Overview (06/19/2020): Coronary arteriosclerosis in [place] artery Pure hypercholesterolemia 01/13/2015 Overview (06/19/2020): Pure hypercholesterolemia Encounters Date Type Department Care Team Description 12/03/2024 External Device Data ST[facility] ABSTRACTION Provider, Abstract 11/20/2024 External Device Data [facility] ABSTRACTION Provider, Abstract 11/14/2024 Abstract [facility] Oncology and Hematology Real [address] [place] [address] Koby Vinson MD 11/09/2024 External Device Data ST[facility] ABSTRACTION Provider, Abstract 11/08/2024 External Device Data [facility] ABSTRACTION Provider, Abstract 11/06/2024 External Device Data [facility] ABSTRACTION Provider, Abstract 10/28/2024 2:30 PM NEURODIAGNOSTIC TECHNOLOGIST Office Visit [facility] Oncology and Hematology [facility] [address] [place] [address] Koby Vinson MD Iron deficiency anemia, unspecified iron deficiency anemia type (Primary Dx) 10/21/2024 Orders Only [facility] Oncology and Hematology - Real [facility] [address] Koby Vinson MD 10/21/2024 Abstract [facility] Oncology and Hematology - Real [address] [place] [phone] Koby Vinson MD 10/18/2024 Abstract [facility] Oncology and Hematology - Real [address] [place] [address] [address] [place] [phone] Koby Vinson MD 10/15/2024 Telephone [facility] Oncology and Hematology - Real [address] Koby Vinson MD Lab Results (Low hem. ) 10/15/2024 Orders Only [facility] Oncology and Hematology - Real [facility] [address] [place] [phone] Koby Vinson MD Chronic anemia (Primary Dx) from Last 3 Months Immunizations Immunization Administration [...] on file Legal Sex Female 5:09 AM NEURODIAGNOSTIC TECHNOLOGIST Gender Identity Not on file Sexual Orientation Not on file Last Filed Vital Signs Vital Sign Reading Time Taken Comments Blood Pressure 132/77 10/28/2024 2:37 PM NEURODIAGNOSTIC TECHNOLOGIST Pulse 60 10/28/2024 2:37 PM NEURODIAGNOSTIC TECHNOLOGIST Temperature 36.1 C (97 F) 10/28/2024 2:37 PM NEURODIAGNOSTIC TECHNOLOGIST Respiratory Rate 15 10/28/2024 2:37 PM NEURODIAGNOSTIC TECHNOLOGIST Oxygen Saturation 94% 10/28/2024 2:37 PM NEURODIAGNOSTIC TECHNOLOGIST Inhaled Oxygen Concentration - - Weight 89.9 kg (198 lb 3.2 oz) 10/28/2024 2:37 P M NEURODIAGNOSTIC TECHNOLOGIST Height 170.2 cm (5' 7 ) 09/08/2022 3:24 PM NEURODIAGNOSTIC TECHNOLOGIST Body Mass Index 31.04 09/08/2022 3:24 PM NEURODIAGNOSTIC TECHNOLOGIST Plan of Treatment Upcoming Encounters Date Type Department Care Team (Late st Contact Info) Description 01/06/2025 2:00 PM CDT Office Visit [facility] Oncology and Hematology - Real [address] [place] [address] 200 [place] [address] Koby Vinson MD [address] [facility] [address] [place] [address] Health Maintenance Due Date Last [...] years Discontinued Medical Devices Implanted Type Area Telephone Answering Service Operator Device Identifier Shelf Expiration Date Model / Serial / Lot Filler Bone Stimulan Paste 5cc W/Beads 620-005 - [id number] Implanted:Qty: 1 on 06/17/2020 by Bear Vasques MD at [facility] Biological N/A: Spine Lumbar [employer] 10/04/2022 620-005 / / [id number] Description:BRADEN [id number] Hemostatic Surgiflo 8ml W/Thrombin 2994 - [id number] Implanted:Qty: 1 on 06/17/2020 by Bear Vasques MD at [facility] Hemostatic N/A: Spine Lumbar [employer] 06/03/2021 2994 / / [id number] Tad Cdh Solera Ccm 4.02n24xz Capped [id number] - [id number] Implanted:Qty: 1 on 06/17/2020 by Bear Vasques MD at [facility] Tad N/A: Spine Lumbar [employer] SOFAMOR DANEK [id number] / / Description:BRADEN [id number] Tad Cdh Solera Ccm 4.69u39ag Capped [id number] - [id number] Implanted:Qty: 1 on 06/17/2020 by Bear Vasques MD at [facility] Tad N/A: Spine Lumbar [employer] SOFAMOR [employer]ANEK [id number] / / Description:LOAD # [id number] DATE 06/09/2020 Screw Solera Frederic Ma 6.5x45mm 4.75 Ext Tab [id number] - [id number] Implanted:Qty: 1 on 06/17/2020 by Bear Vasques MD at [facility] Screw N/A: Spine Lumbar [employer] SO[employer]AMOR [employer]ANEK [id number] / / Description:LOAD # [id number] DATE 06/09/2020 Screw Solera Frederic Ma 6.5x40mm 4.75 Ext Tab [id number] - [id number] Implanted:Qty: 2 on 06/17/2020 by Bear Vasques MD at [facility] Screw N/A: Spine Lumbar [employer] [id number] / / Description:LOAD # [id number] DATE 06/09/2020 Screw Solera Frederic Ma 7.5x35mm 4.75 Ext Tab [id number] - [id number] Implanted:Qty: 2 on 06/17/2020 by Bear Vasques MD at [facility] Screw N/A: Spine Lumbar [employer]ANEK [id number] / / Description:LOAD # [id number] DATE 06/09/2020 Screw Solera Frederic Ma 7.5x40mm 4.75 Ext Tab [id number] - [id number] Implanted:Qty: 1 on 06/17/2020 by Bear Vasques MD at [facility] Screw N/A: Spine Lumbar [employer]OR [employer]ANEK [id number] / / Description:LOAD # [id number] DATE 06/09/2020 Set Screw Solera Perc 4.75mm [id number] - [id number] Implanted:Qty: 6 on 06/17/2020 by eBar Vasques MD at [facility] Screw N/A: Spine Lumbar [employer] SOFAMOR [employer]ANEK [id number] / / Description:LOAD # [id number] DATE 06/09/2020 Infuse Protein Kit Sm [id number] - [id number] Implanted:Qty: 1 on 06/17/2020 by Bear Vasques MD at [facility] Tissue N/A: Spine Lumbar [employer] SOFAMOR [employer]ANEK 05/04/2022 [id number] / / [id number] Description:Requisition: [id number] Allograft Magnifuse Pc [id number] - [id number] Implanted:Qty: 1 on 06/17/2020 by Bear Vasques MD at [facility] N/A: Spine Lumbar [employer] 04/27/2022 [id number] / [id number] / Description:Requisition: [id number] Procedures Procedure Name Priority Date/Time Associated Diagnosis Comments CBC WITH DIFFERENTIAL Routine 10/17/2024 12:10 PM NEURODIAGNOSTIC TECHNOLOGIST COLONOSCOPY REPORT Routine 05/03/2023 10:56 AM CDT from Last 3 Months or Most Recently Relevant to Health Maintenance Results * CBC WITH DIFFERENTIAL (10/17/2024 12:10 PM NEURODIAGNOSTIC TECHNOLOGIST) Blood us Koby Vinson MD HEMATOLOGY ORDERABLES Final Res ult * COLONOSCOPY REPORT (05/03/2023 10:56 AM CDT) us Koby Vinson MD GI PROCEDURE ORDERABLES Final R esult from Last 3 Months or Most Recently Relevant to Health Maintenance Insurance RX [employer] RX Member Subscriber Plan / Payer ( fective 2019-Present) Name:CunninghamYvonne Relation to Subscriber:Self Name:Yvonne Cunningham [place] Payer ID:Not on file Group ID:[id number] Type:RX Medicare Part D Address: [address] RX AETNA Commercial AETNA [facility] MCR Advance Directives For more information, please contact: [phone] Documents on File Type Date Recorded Patient Barrel Charrer Helper Expl anation Advance Directive POA 06/11/2020 1:30 PM A dvance Directive POA * Full Code (Latest Code Status on File) Date Activated Date Inactivated Comments 06/17/2020 3:50 PM 06/20/2020 6:06 PM * Full Code Date Activated Date Inactivated Comments 06/17/2020 9:10 AM 06/17/2020 3:50 PM * Full Code Date Activated Date Inactivated Comments 06/17/2020 7:51 AM 06/17/2020 9:10 AM Care Teams Repeater Chief Relationship Specialty Start Date End Date Murray Bourne MD [address] [place] [address] PCP - General Family Practice 05/25/20
--- OUTSIDE RECORDS SUMMARY | 2025-01-04 13:03 | XMS_ITS | CONTINUITY OF CARE DOCUMENT ---
Author Name mela plaza Address Unknown Organization [facility] Address [address] [place] [address] [address] [place] [address] Phone [phone] Care Team Providers Care Art Supervisor Name Role Phone Annalisa YAÑEZ, Silvio Unavailable JOEY BOSWELL MD Unavailable [phone] INSURANCE PROVIDERS Payer name Policy type / Coverage type [place] red libertarian ID UHC MEDICARE COMPLETE HMO Other [id number]
--- OUTSIDE RECORDS SUMMARY | 2025-01-04 13:03 | XMS_ITS | Clinical Summary ---
Author Organization [facility] [address] Address [address] [place] [address] Care Team Providers Care Accounts Clerk Name Role Phone Murray Bourne MD Primary [...] Department Care Team Description 11/12/2024 Orders Only [facility] Health Information Management [address] [place] [address] Derrick Bird MD from Last 3 Months [...] on file Legal Sex Female 2:02 AM PHOTOENGRAVING PROOFER APPRENTICE Gender Identity Female 04/28/2020 9:32 AM CDT Sexual Orientation Straight 04/28/2020 9: 32 AM CDT Obstetrics History Last Filed Vital Signs Vital Sign Reading Time Taken Comments Blood Pressure 124/68 07/26/2024 10:13 AM PHOTOENGRAVING PROOFER APPRENTICE Pulse 63 07/26/2024 10:13 AM PHOTOENGRAVING PROOFER APPRENTICE Temperature - - Respiratory Rate 12 03/14/2017 11:29 AM CDT Oxygen Saturation 97% 07/26/2024 10:13 AM PHOTOENGRAVING PROOFER APPRENTICE Inhaled Oxygen Concentration - - Weight 93.4 kg (206 lb) 07/26/2024 10:13 AM PHOTOENGRAVING PROOFER APPRENTICE Height 170.2 cm (5' 7 ) 07/26/2024 10:13 AM PHOTOENGRAVING PROOFER APPRENTICE Body Mass Index 32.26 07/26/2024 10:13 AM PHOTOENGRAVING PROOFER APPRENTICE Plan of Treatment Health Maintenance Due Date [...] Months Insurance AETNA MEDICARE GOLD Care Teams Accounts Clerk Relationship Specialty Start Date End Date Murray Bourne MD [address] [facility] [address] [place] [address] PCP - General Family Practice 05/16/23
--- OUTSIDE RECORDS SUMMARY | 2025-01-04 13:03 | XMS_ITS | Encounter Summary ---
Author Organization [facility] Address 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 Brijesh Bird MD [address] [facility] [address] [place] [address] Viktoriya Gavin MD [address] [place], [place] [id number] [place] [phone] Other and Unspecified Angina Pectoris Social History Tobacco Use Types Packs/Day Years Used Date Smoking Tobacco: Never Assessed Comments Unknown Sex and Gender Information Value Date Recorded Sex Assigned at Not on file 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 [address] [place] [address] Koby Vinson MD [address] [facility] [address] [place] [address] documented as of this encounter [...] GLUCOSE POC 113(H) 65 - 99 mg/dL [facility] Venous blood specimen (specimen) 05/24/2008 9:29 AM CDT 05/24/2008 9:29 AM CDT us Brijesh Bird MD POINT OF CARE TESTING Fin al Result INTERFACE SYSTEM Refer to clinic/hospital department [facility] CLIA# [id number] [address] [place] [address] * (ABNORMAL) POC GLUCOSE (05/24/2008 5:48 AM CDT) COMMENT, GLU POC Notified RN [facility] GLUCOSE POC 117(H) 65 - 99 mg/dL [facility] Venous blood specimen (specimen) 05/24/2008 5:48 AM CDT 05/24/2008 5:48 AM CDT us Brijesh Bird MD POINT OF CARE TESTING Fin al Result INTERFACE SYSTEM Refer to clinic/hospital department [facility] CLIA# [id number] [address] [place] [address] * (ABNORMAL) CBC WITH DIFFERENTIAL (05/24/2008 4:54 AM CDT) HEMOGLOBIN 9.8(L) 11.8 - 14.8 g/dL [facility] MCHC 33.2 31.5 - 35.5 % [facility] WBC 6.4 4.0 - 9.8 K/uL [facility] MCH 30.7 27.2 - 32.6 pg [facility] HEMATOCRIT 29.5(L) 35.5 - 44.0 % [facility] RDW 14.0 11.5 - 14.5 % [facility] RBC 3.19(L) 3.90 - 4.90 M/uL [facility] MCV 92.5 82.0 - 99.0 fL [facility] RDW-STDEV 47.1 37.1 - 48.7 fL [facility] LYMPHOCYTE ABSOLUTE 1.75 0.70 - 4.50 K/uL [facility] BASOPHILS 1 0 - 2 % [facility] BASOPHILS ABSOLUTE 0.05 0.00 - 0.20 K/uL [facility] MONOCYTES 10 3 - 13 % [facility] MONOCYTE ABSOLUTE 0.62 0.10 - 1.30 K/uL [facility] NEUTROPHILS 60 45 - 70 % [facility] NEUTROPHIL ABSOLUTE 3.86 1.90 - 7.00 K/uL [facility] EOSINOPHILS 2 0 - 7 % [facility] EOSINOPHIL ABSOLUTE 0.12 0.00 - 0.70 K/uL [facility] LYMPHOCYTES 27 16 - 45 % [facility] MPV 13.2(H) 9.3 - 12.4 fL [facility] PLATELETS 114(L) 140 - 350 K/uL [facility] Comment: Platelets verified by smear review. Blood specimen (specimen) 05/24/2008 4:54 AM CDT 05/24/2008 7:30 AM CDT us Viktoriya Gavin MD HEMATOLOGY ORDERABLES Edit ed Performing Organization Address City/State/[facility] Co de Phone Number INTERFACE SYSTEM Refer to clinic/hospital department [facility] CLIA# [id number] [address] [facility] [address] * (ABNORMAL) BASIC METABOLIC PANEL (05/24/2008 4:54 AM CDT) CHLORIDE 101 96 - 108 mmol/L [facility] GLUCOSE 84 65 - 99 mg/dL [facility] SODIUM 138 135 - 145 mmol/L [facility] CALCIUM 8.4(L) 8.6 - 10.2 mg/dL [facility] CO2 26 22 - 30 mmol/L [facility] CREATININE 0.60 0.51 - 0.95 mg/dL [facility] POTASSIUM 3.4(L) 3.5 - 4.9 mmol/L [facility] BUN 22(H) 6 - 20 mg/dL [facility] GFR, >60 >=60 mL/min/1. 7 sq meter [facility] GFR >60 >=60 mL/min/1. 7 sq meter [facility] Comment: Modification of Diet in Renal Disease (MDRD) study formula. Estimated GFR rate interpretative information for both Americans and non- Americans is available on the [facility] Intranet at: [email or web address] Select: Lab Policies and Procedures Select: Reference Ranges - GFR Blood specimen (specimen) 05/24/2008 4:54 AM CDT 05/24/2008 7:30 AM CDT Viktoriya Gavin MD CHEMISTRY ORDERABLES Edite d Performing Organization Address [facility] de Phone Number INTERFACE SYSTEM Refer to clinic/hospital department [facility] CLIA# [id number] [address] [place] [address] * MAGNESIUM LEVEL (05/24/2008 4:54 AM CDT) MAGNESIUM 2.2 1.5 - 2.5 mg/dL [facility] Blood specimen (specimen) 05/24/2008 4:54 AM CDT 05/24/2008 7:30 AM CDT Vitkoriya Gavin MD CHEMISTRY ORDERABLES Final Result Performing Organization Address [facility] Phone Number INTERFACE SYSTEM Refer to clinic/hospital department [facility] CLIA# [id number] [address] [place] [address] * (ABNORMAL) POC GLUCOSE (05/24/2008 1:17 AM CDT) GLUCOSE POC 108(H) 65 - 99 mg/dL [facility] Venous blood specimen (specimen) 05/24/2008 1:17 AM CDT 05/24/2008 1:17 AM CDT Brijesh Bird MD POINT OF CARE TESTING Fin al Result Performing Organization Address [facility] de Phone Number INTERFACE SYSTEM Refer to clinic/hospital department [facility] CLIA# [id number] [address] [place] [address] * (ABNORMAL) POC GLUCOSE (05/23/2008 8:51 PM CDT) GLUCOSE POC 145(H) 65 - 99 mg/dL [facility] COMMENT, GLU POC Notified RN [facility] Venous blood specimen (specimen) 05/23/2008 8:51 PM CDT 05/23/2008 8:51 PM CDT Brijesh Bird MD POINT OF CARE TESTING Fin al Result Performing Organization Address [facility] de Phone Number INTERFACE SYSTEM Refer to clinic/hospital department [facility] CLIA# [id number] [address] [place] [place] [address] * (ABNORMAL) POC GLUCOSE (05/23/2008 4:50 PM CDT) GLUCOSE POC 121(H) 65 - 99 mg/dL [facility] Venous blood specimen (specimen) 05/23/2008 4:50 PM CDT 05/23/2008 4:50 PM CDT Brijesh Bird MD POINT OF CARE TESTING Fin al Result Performing Organization Address [facility] de Phone Number INTERFACE SYSTEM Refer to clinic/hospital department [facility] CLIA# [id number] [address] [place] [place] [address] * (ABNORMAL) POC GLUCOSE (05/23/2008 10:06 AM CDT) GLUCOSE POC 121(H) 65 - 99 mg/dL [facility] Venous blood specimen (specimen) 05/23/2008 10:06 AM CDT 05/23/2008 10:06 AM CDT Brijesh Bird MD POINT OF CARE TESTING Fin al Result Performing Organization Address [facility] de Phone Number INTERFACE SYSTEM Refer to clinic/hospital department [facility] CLIA# [id number] [address] [place] [address] * (ABNORMAL) POC GLUCOSE (05/23/2008 5:44 AM CDT) COMMENT, GLU POC Notified RN [facility] GLUCOSE POC 122(H) 65 - 99 mg/dL [facility] Venous blood specimen (specimen) 05/23/2008 5:44 AM CDT 05/23/2008 5:44 AM CDT us Brijesh Bird MD POINT OF CARE TESTING Fin al Result Performing Organization Address [facility] de Phone Number INTERFACE SYSTEM Refer to clinic/hospital department [facility] CLIA# [id number] [address] [place] [address] * XR CHEST PA AND LATERAL (05/23/2008 5:20 AM CDT) Anatomical Region Laterality Modality Chest Other 05/23/2008 5:20 AM CDT Narrative 05/23/2008 8:32 AM CDT [facility] [address] [place], [place] [address] Admit Date: 05/19/2008 ABEBE [place] Sex: F Admit Prov: BRIJESH BIRD Date: 1945 Primary Care Prov: CMRN: [id number] Room: [address] [place] [address] SSN: [id number] IMAGING SERVICES Ordering Prov: N/A Accession Number: [id number] Interpretation EXAM: CHEST X-RAY, PA AND LATERAL, [...] [facility] [address] [place], [place] [address] Admit Date: 05/19/2008 LENIN ABEBE Glez Sex: F Admit Prov: BRIJESH BIRD Date: 1945 Primary Care Prov: CMRN: [id number] Room: [address] [place] [address] SSN: [id number] IMAGING SERVICES Ordering Prov: N/A Interpretation EXAM: [...] CDT) RDW 14.3 11.5 - 14.5 % [facility] WBC 7.6 4.0 - 9.8 K/uL [facility] MCH 30.5 27.2 - 32.6 pg [facility] MPV 13.0(H) 9.3 - 12.4 fL [facility] HEMATOCRIT 31.9(L) 35.5 - 44.0 % [facility] RDW-STDEV 48.2 37.1 - 48.7 fL [facility] RBC 3.44(L) 3.90 - 4.90 M/uL [facility] MCHC 32.9 31.5 - 35.5 % [facility] MCV 92.7 82.0 - 99.0 fL [facility] PLATELETS 109(L) 140 - 350 K/uL [facility] HEMOGLOBIN 10.5(L) 11.8 - 14.8 g/dL [facility] LYMPHOCYTES 21 16 - 45 % [facility] LYMPHOCYTE ABSOLUTE 1.62 0.70 - 4.50 K/uL [facility] BASOPHILS 1 0 - 2 % [facility] BASOPHILS ABSOLUTE 0.05 0.00 - 0.20 K/uL [facility] MONOCYTES 10 3 - 13 % [facility] MONOCYTE ABSOLUTE 0.78 0.10 - 1.30 K/uL [facility] NEUTROPHILS 66 45 - 70 % [facility] NEUTROPHIL ABSOLUTE 5.06 1.90 - 7.00 K/uL [facility] EOSINOPHILS 1 0 - 7 % [facility] EOSINOPHIL ABSOLUTE 0.11 0.00 - 0.70 K/uL [facility] Blood specimen (specimen) 05/23/2008 5:00 AM CDT 05/23/2008 6:12 AM CDT Radha CONTI HEMATOLOGY ORDERABLES Edited Performing Organization Address [facility] de Phone Number INTERFACE SYSTEM Refer to clinic/hospital department [facility] CLIA# [id number] [address] [place] [address] * MAGNESIUM LEVEL (05/23/2008 5:00 AM CDT) MAGNESIUM 2.1 1.5 - 2.5 mg/dL [facility] Blood specimen (specimen) 05/23/2008 5:00 AM CDT 05/23/2008 6:10 AM CDT us Radha CONTI CHEMISTRY ORDERABLES Final Resu lt Performing Organization Address [facility] Phone Number INTERFACE SYSTEM Refer to clinic/hospital department [facility] CLIA# [id number] [address] [place] [address] * (ABNORMAL) BASIC METABOLIC PANEL (05/23/2008 5:00 AM CDT) GLUCOSE 107(H) 65 - 99 mg/dL [facility] SODIUM 136 135 - 145 mmol/L [facility] CALCIUM 8.7 8.6 - 10.2 mg/dL [facility] CO2 27 22 - 30 mmol/L [facility] CREATININE 0.73 0.51 - 0.95 mg/dL [facility] POTASSIUM 3.6 3.5 - 4.9 mmol/L [facility] BUN 26(H) 6 - 20 mg/dL [facility] CHLORIDE 102 96 - 108 mmol/L [facility] GFR, >60 >=60 mL/min/1. 7 sq meter [facility] GFR >60 >=60 mL/min/1. 7 sq meter [facility] Comment: Modification of Diet in Renal Disease (MDRD) study formula. Estimated GFR rate interpretative information for both Americans and non- Americans is available on the [facility] Intranet at: [email or web address] Select: Lab Policies and Procedures Select: Reference Ranges - GFR Blood specimen (specimen) 05/23/2008 5:00 AM CDT 05/23/2008 6:10 AM CDT Radha CONTI CHEMISTRY ORDERABLES Edited Performing Organization Address [facility] de Phone Number INTERFACE SYSTEM Refer to clinic/hospital department [facility] CLIA# [id number] [address] [place] [address] * (ABNORMAL) POC GLUCOSE (05/23/2008 12:46 AM CDT) GLUCOSE POC 141(H) 65 - 99 mg/dL [facility] COMMENT, GLU POC Notified GISELL [facility] Venous blood specimen (specimen) 05/23/2008 12:46 AM CDT 05/23/2008 12:46 AM CDT Brijesh Bird MD POINT OF CARE TESTING Fin al Result Performing Organization Address [facility] de Phone Number INTERFACE SYSTEM Refer to clinic/hospital department [facility] CLIA# [id number] [address] [place] [address] * (ABNORMAL) POC GLUCOSE (05/22/2008 9:09 PM CDT) GLUCOSE POC 178(H) 65 - 99 mg/dL [facility] COMMENT, GLU POC Notified GISELL [facility] Venous blood specimen (specimen) 05/22/2008 9:09 PM CDT 05/22/2008 9:09 PM CDT Brijesh Bird MD POINT OF CARE TESTING Fin al Result Performing Organization Address [facility] de Phone Number INTERFACE SYSTEM Refer to clinic/hospital department [facility] CLIA# [id number] [address] [place] [address] * (ABNORMAL) POC GLUCOSE (05/22/2008 5:10 PM CDT) GLUCOSE POC 129(H) 65 - 99 mg/dL [facility] Venous blood specimen (specimen) 05/22/2008 5:10 PM CDT 05/22/2008 5:10 PM CDT Brijesh Bird MD POINT OF CARE TESTING Fin al Result Performing Organization Address [facility] de Phone Number INTERFACE SYSTEM Refer to clinic/hospital department [facility] CLIA# [id number] [address] [place] [address] * (ABNORMAL) POC GLUCOSE (05/22/2008 1:54 PM CDT) GLUCOSE POC 120(H) 65 - 99 mg/dL [facility] Venous blood specimen (specimen) 05/22/2008 1:54 PM CDT 05/22/2008 1:54 PM CDT Brijesh Bird MD POINT OF CARE TESTING Fin al Result Performing Organization Address [facility] de Phone Number INTERFACE SYSTEM Refer to clinic/hospital department [facility] CLIA# [id number] [address] [place] [address] * (ABNORMAL) POC GLUCOSE (05/22/2008 11:20 AM CDT) GLUCOSE POC 120(H) 65 - 99 mg/dL [facility] Venous blood specimen (specimen) 05/22/2008 11:20 AM CDT 05/22/2008 11:20 AM CDT us Brijesh Bird MD POINT OF CARE TESTING Fin al Result Performing Organization Address [facility] de Phone Number INTERFACE SYSTEM Refer to clinic/hospital department [facility] CLIA# [id number] [address] [place] [address] * (ABNORMAL) POC GLUCOSE (05/22/2008 8:41 AM CDT) GLUCOSE POC 112(H) 65 - 99 mg/dL [facility] Venous blood specimen (specimen) 05/22/2008 8:41 AM CDT 05/22/2008 8:41 AM CDT us Brijesh Bird MD POINT OF CARE TESTING Fin al Result Performing Organization Address [facility] de Phone Number INTERFACE SYSTEM Refer to clinic/hospital department [facility] CLIA# [id number] [address] [place] [address] * XR CHEST PA OR AP (05/22/2008 8:40 AM CDT) Anatomical Region Laterality Modality Chest Other 05/22/2008 8:40 AM CDT Narrative 05/22/2008 9:36 AM CDT [facility] [address] [place], [place] [address] Admit Date: 05/19/2008 ABEBE C[place] Sex: F Admit Prov: BRIJESH BIRD Date: 1945 Primary Care Prov: CMRN: [id number] Room: [address] [place] [address] SSN: [id number] IMAGING SERVICES Ordering Prov: N/A Accession Number: [id number] Interpretation PORTABLE SEMIERECT CHEST OF 0850 HOURS, [...] [facility] [address] [facility] [place] [address] Admit Date: 05/19/2008 ABEBE CUNNINGHAM [place] Sex: F Admit Prov: BRIJESH BIRD Date: 1945 Primary Care Prov: CMRN: [id number] Room: [address] [place] [address] SSN: [id number] IMAGING SERVICES Ordering Prov: N/A Interpretation PORTABLE [...] GLUCOSE POC 118(H) 65 - 99 mg/dL [facility] Venous blood specimen (specimen) 05/22/2008 6:16 AM CDT 05/22/2008 6:16 AM CDT us Brijesh Bird MD POINT OF CARE TESTING Fin al Result INTERFACE SYSTEM Refer to clinic/hospital department [facility] CLIA# [id number] [address] [place] [address] * (ABNORMAL) BASIC METABOLIC PANEL (05/22/2008 4:40 AM CDT) CHLORIDE 109(H) 96 - 108 mmol/L [facility] GLUCOSE 103(H) 65 - 99 mg/dL [facility] SODIUM 141 135 - 145 mmol/L [facility] CALCIUM 8.6 8.6 - 10.2 mg/dL [facility] CO2 26 22 - 30 mmol/L [facility] CREATININE 0.62 0.51 - 0.95 mg/dL [facility] POTASSIUM 4.1 3.5 - 4.9 mmol/L [facility] BUN 27(H) 6 - 20 mg/dL [facility] GFR, >60 >=60 mL/min/1. 7 sq meter [facility] GFR >60 >=60 mL/min/1. 7 sq meter [facility] Comment: Modification of Diet in Renal Disease (MDRD) study formula. Estimated GFR rate interpretative information for both Americans and non- Americans is available on the [facility] Intranet at: [email or web address] Select: Lab Policies and Procedures Select: Reference Ranges - GFR Blood specimen (specimen) 05/22/2008 4:40 AM CDT 05/22/2008 4:49 AM CDT us Ary Fragoso NP CHEMISTRY ORDERABLES Edited INTERFACE SYSTEM Refer to clinic/hospital department [facility] CLIA# [id number] [address] [place] [address] * (ABNORMAL) CBC WITH DIFFERENTIAL (05/22/2008 4:40 AM CDT) MCV 92.4 82.0 - 99.0 fL [facility] HEMOGLOBIN 10.8(L) 11.8 - 14.8 g/dL [facility] RDW 14.6(H) 11.5 - 14.5 % [facility] WBC 11.2(H) 4.0 - 9.8 K/uL [facility] MCH 30.6 27.2 - 32.6 pg [facility] HEMATOCRIT 32.6(L) 35.5 - 44.0 % [facility] RDW-STDEV 49.3(H) 37.1 - 48.7 fL [facility] RBC 3.53(L) 3.90 - 4.90 M/uL [facility] MCHC 33.1 31.5 - 35.5 % [facility] EOSINOPHILS 0 0 - 7 % [facility] EOSINOPHIL ABSOLUTE 0.01 0.00 - 0.70 K/uL [facility] LYMPHOCYTES 14(L) 16 - 45 % [facility] LYMPHOCYTE ABSOLUTE 1.57 0.70 - 4.50 K/uL [facility] BASOPHILS 0 0 - 2 % [facility] BASOPHILS ABSOLUTE 0.02 0.00 - 0.20 K/uL [facility] MONOCYTES 12 3 - 13 % [facility] MONOCYTE ABSOLUTE 1.33(H) 0.10 - 1.30 K/uL [facility] NEUTROPHILS 74(H) 45 - 70 % [facility] NEUTROPHIL ABSOLUTE 8.27(H) 1.90 - 7.00 K/uL [facility] PLATELETS 95(L) 140 - 350 K/uL [facility] Comment: Platelets verified by smear review. MPV 12.9(H) 9.3 - 12.4 fL [facility] Blood specimen (specimen) 05/22/2008 4:40 AM CDT 05/22/2008 4:49 AM CDT us Ary Fragoso [employer] AND [employer]EVERAGE ATTENDANT HEMATOLOGY ORDERABLES Edited Performing Organization Address [facility] de Phone Number INTERFACE SYSTEM Refer to clinic/hospital department [facility] CLIA# [id number] [address] [place] [address] * (ABNORMAL) POC GLUCOSE (05/22/2008 4:10 AM CDT) GLUCOSE POC 116(H) 65 - 99 mg/dL [facility] Venous blood specimen (specimen) 05/22/2008 4:10 AM CDT 05/22/2008 4:10 AM CDT us Brijesh Bird MD POINT OF CARE TESTING Fin al Result Performing Organization Address [facility] de Phone Number INTERFACE SYSTEM Refer to clinic/hospital department [facility] CLIA# [id number] [address] [place] [place] [address] * (ABNORMAL) POC GLUCOSE (05/22/2008 3:18 AM CDT) GLUCOSE POC 115(H) 65 - 99 mg/dL [facility] Venous blood specimen (specimen) 05/22/2008 3:18 AM CDT 05/22/2008 3:18 AM CDT us Brijesh Bird MD POINT OF CARE TESTING Fin al Result Performing Organization Address [facility] de Phone Number INTERFACE SYSTEM Refer to clinic/hospital department [facility] CLIA# [id number] [address] [place] [place] [address] * (ABNORMAL) POC GLUCOSE (05/22/2008 2:04 AM CDT) GLUCOSE POC 136(H) 65 - 99 mg/dL [facility] Venous blood specimen (specimen) 05/22/2008 2:04 AM CDT 05/22/2008 2:04 AM CDT Brijesh Bird MD POINT OF CARE TESTING Fin al Result Performing Organization Address City/[facility] de Phone Number INTERFACE SYSTEM Refer to clinic/hospital department [facility] CLIA# [id number] [address] [place] [address] * (ABNORMAL) POC GLUCOSE (05/22/2008 1:01 AM CDT) GLUCOSE POC 109(H) 65 - 99 mg/dL [facility] Venous blood specimen (specimen) 05/22/2008 1:01 AM CDT 05/22/2008 1:01 AM CDT us Brijesh Bird MD POINT OF CARE TESTING Fin al Result Performing Organization Address [facility] de Phone Number INTERFACE SYSTEM Refer to clinic/hospital department [facility] [facility] CLIA# [id number] [address] [place] [address] * POC GLUCOSE (05/22/2008 12:02 AM CDT) GLUCOSE POC 85 65 - 99 mg/dL [facility] Venous blood specimen (specimen) 05/22/2008 12:02 AM CDT 05/22/2008 12:02 AM CDT Brijesh Bird MD POINT OF CARE TESTING Fin al Result Performing Organization Address City/[facility] de Phone Number INTERFACE SYSTEM Refer to clinic/hospital department [facility] CLIA# [id number] [address] [place] [address] * (ABNORMAL) POC GLUCOSE (05/21/2008 11:07 PM CDT) GLUCOSE POC 105(H) 65 - 99 mg/dL [facility] Venous blood specimen (specimen) 05/21/2008 11:07 PM CDT 05/21/2008 11:07 PM CDT Brijesh Bird MD POINT OF CARE TESTING Fin al Result Performing Organization Address City/[facility] de Phone Number INTERFACE SYSTEM Refer to clinic/hospital department [facility] CLIA# [id number] [address] [place] [address] * POC GLUCOSE (05/21/2008 10:02 PM CDT) GLUCOSE POC 99 65 - 99 mg/dL [facility] Venous blood specimen (specimen) 05/21/2008 10:02 PM CDT 05/21/2008 10:02 PM CDT Brijesh Bird MD POINT OF CARE TESTING Fin al Result Performing Organization Address [facility] de Phone Number INTERFACE SYSTEM Refer to clinic/hospital department [facility] CLIA# [id number] [address] [place] [address] * POC GLUCOSE (05/21/2008 9:14 PM CDT) GLUCOSE POC 93 65 - 99 mg/dL [facility] Venous blood specimen (specimen) 05/21/2008 9:14 PM CDT 05/21/2008 9:14 PM CDT Brijesh Bird MD POINT OF CARE TESTING Fin al Result Performing Organization Address City/[facility] de Phone Number INTERFACE SYSTEM Refer to clinic/hospital department [facility] CLIA# [id number] [address] [place] [address] * (ABNORMAL) POC GLUCOSE (05/21/2008 8:19 PM CDT) GLUCOSE POC 112(H) 65 - 99 mg/dL [facility] Venous blood specimen (specimen) 05/21/2008 8:19 PM CDT 05/21/2008 8:19 PM CDT Brijesh Bird MD POINT OF CARE TESTING Fin al Result Performing Organization Address [facility] de Phone Number INTERFACE SYSTEM Refer to clinic/hospital department [facility] CLIA# [id number] [address] [place] [address] * (ABNORMAL) POC GLUCOSE (05/21/2008 4:28 PM CDT) GLUCOSE POC 104(H) 65 - 99 mg/dL [facility] Venous blood specimen (specimen) 05/21/2008 4:28 PM CDT 05/21/2008 4:28 PM CDT Brijesh Bird MD POINT OF CARE TESTING Fin al Result Performing Organization Address [facility] de Phone Number INTERFACE SYSTEM Refer to clinic/hospital department [facility] CLIA# [id number] [address] [place] [address] * (ABNORMAL) POC GLUCOSE (05/21/2008 3:04 PM CDT) GLUCOSE POC 109(H) 65 - 99 mg/dL [facility] Venous blood specimen (specimen) 05/21/2008 3:04 PM CDT 05/21/2008 3:04 PM CDT Brijesh Bird MD POINT OF CARE TESTING Fin al Result Performing Organization Address City/[facility] de Phone Number INTERFACE SYSTEM Refer to clinic/hospital department [facility] CLIA# [id number] [address] [place] [address] * (ABNORMAL) POC GLUCOSE (05/21/2008 1:48 PM CDT) GLUCOSE POC 124(H) 65 - 99 mg/dL [facility] Venous blood specimen (specimen) 05/21/2008 1:48 PM CDT 05/21/2008 1:48 PM CDT Brijesh Bird MD POINT OF CARE TESTING Fin al Result Performing Organization Address [facility] de Phone Number INTERFACE SYSTEM Refer to clinic/hospital department [facility] CLIA# [id number] [address] [place] [address] * (ABNORMAL) BLOOD GAS ARTERIAL (05/21/2008 1:45 PM CDT) O2 CONC ARTERIAL 35% [facility] PCO2 ARTERIAL 42 35 - 48 mm Hg [facility] FO2HB ABG 95 94 - 98 % [facility] BASE EXCESS ABG -0.8 -2.0 - 3.0 mmol/L [facility] PO2 ARTERIAL 79(L) 83 - 108 mm Hg [facility] PH ARTERIAL 7.37 7.35 - 7.45 [facility] SO2 ABG 96 95 - 99 % [facility] HCO3 ARTERIAL 24 22 - 26 mmol/L [facility] Arterial blood specimen (specimen) 05/21/2008 1:45 PM CDT 05/21/2008 1:52 PM CDT us Ary Fragoso [employer] ATTENDANT ABG ORDERABLES Final Result Performing Organization Address [facility] de Phone Number INTERFACE SYSTEM Refer to clinic/hospital department [facility] CLIA# [id number] [address] [place] [address] * (ABNORMAL) POC GLUCOSE (05/21/2008 1:10 PM CDT) GLUCOSE POC 123(H) 65 - 99 mg/dL [facility] Venous blood specimen (specimen) 05/21/2008 1:10 PM CDT 05/21/2008 1:10 PM CDT Brijesh Bird MD POINT OF CARE TESTING Fin al Result Performing Organization Address [facility] de Phone Number INTERFACE SYSTEM Refer to clinic/hospital department [facility] CLIA# [id number] [address] [place] [address] * (ABNORMAL) CVR ONLY, CKMB/CK (05/21/2008 12:30 PM CDT) [facility] Signature CKMB 80.9(AA) <=3.8 ng/mL [facility] Comment: Persistent abnormal result CKMB INTERP See Below [facility] Comment: Elevated CKMB,consistent with Myocardial Injury CK 1,451(H) 10 - 145 U/L [facility] CARDIAC RELATIVE INDEX 5.6(H) <=4.0 [facility] Blood specimen (specimen) 05/21/2008 12:30 PM CDT 05/21/2008 12:32 PM CDT us Viktoriya Gavin MD CHEMISTRY ORDERABLES Edite d Performing Organization Address [facility] de Phone Number INTERFACE SYSTEM Refer to clinic/hospital department [facility] CLIA# [id number] [address] [place] [address] * (ABNORMAL) POC GLUCOSE (05/21/2008 12:28 PM CDT) GLUCOSE POC 106(H) 65 - 99 mg/dL [facility] Venous blood specimen (specimen) 05/21/2008 12:28 PM CDT 05/21/2008 12:28 PM CDT Brijesh Bird MD POINT OF CARE TESTING Fin al Result Performing Organization Address [facility] de Phone Number INTERFACE SYSTEM Refer to clinic/hospital department [facility] CLIA# [id number] [address] [place] [address] * (ABNORMAL) POC GLUCOSE (05/21/2008 11:16 AM CDT) [facility] GLUCOSE POC 137(H) 65 - 99 mg/dL [facility] Venous blood specimen (specimen) 05/21/2008 11:16 AM CDT 05/21/2008 11:16 AM CDT Brijesh Bird MD POINT OF CARE TESTING Fin al Result Performing Organization Address [facility] de Phone Number INTERFACE SYSTEM Refer to clinic/hospital department [facility] CLIA# [id number] [address] [place] [address] * (ABNORMAL) POC RT, BLOOD GASES (05/21/2008 11:12 AM CDT) [facility] Signature PO2 ARTERIAL 57(L) 83 - 108 mm Hg [facility] SODIUM POC 137 135 - 145 mmol/L [facility] PH ARTERIAL 7.38 7.35 - 7.45 [facility] BASE EXCESS ABG -1.3 -2.0 - 3.0 mmol/L [facility] HEMATOCRIT POC 35.0(L) 35.5 - 44.0 % [facility] O2 SAT EST ABG POC 89(L) 95 - 99 % [facility] POTASSIUM POC 4.3 3.5 - 4.9 mmol/L [facility] PCO2 ARTERIAL 40 35 - 48 mm Hg [facility] HCO3 ARTERIAL 24 22 - 26 mmol/L [facility] COMMENT, GASES POC RN NOTIFIED [facility] PATIENT'S TEMPERATURE 37.0 Degree C [facility] CALICUM IONIZED, WHOLE BLOOD 4.77 4.76 - 5.16 mg/dL [facility] Blood specimen (specimen) 05/21/2008 11:12 AM CDT 05/21/2008 11:12 AM CDT Brijesh Bird MD CHEMISTRY ORDERABLES Rosenda l Result Performing Organization Address [facility] Phone Number INTERFACE SYSTEM Refer to clinic/hospital department [facility] CLIA# [id number] [address] [place] [address] * (ABNORMAL) POC GLUCOSE (05/21/2008 10:18 AM CDT) GLUCOSE POC 148(H) 65 - 99 mg/dL [facility] Venous blood specimen (specimen) 05/21/2008 10:18 AM CDT 05/21/2008 10:18 AM CDT Brijesh Bird MD POINT OF CARE TESTING Fin al Result Performing Organization Address [facility] de Phone Number INTERFACE SYSTEM Refer to clinic/hospital department [facility] CLIA# [id number] [address] [place] [address] * (ABNORMAL) POC GLUCOSE (05/21/2008 9:09 AM CDT) GLUCOSE POC 143(H) 65 - 99 mg/dL [facility] Venous blood specimen (specimen) 05/21/2008 9:09 AM CDT 05/21/2008 9:09 AM CDT Brijesh Bird MD POINT OF CARE TESTING Fin al Result Performing Organization Address City/[facility] de Phone Number INTERFACE SYSTEM Refer to clinic/hospital department [facility] CLIA# [id number] [address] [place] [address] * (ABNORMAL) POC GLUCOSE (05/21/2008 8:24 AM CDT) [facility] GLUCOSE POC 145(H) 65 - 99 mg/dL [facility] Venous blood specimen (specimen) 05/21/2008 8:24 AM CDT 05/21/2008 8:24 AM CDT us Brijesh Bird MD POINT OF CARE TESTING Fin al Result Performing Organization Address [facility] de Phone Number INTERFACE SYSTEM Refer to clinic/hospital department [facility] CLIA# [id number] [address] [place] [address] * (ABNORMAL) BLOOD GAS ARTERIAL (05/21/2008 8:00 AM CDT) [facility] O2 CONC ARTERIAL 55% [facility] BASE EXCESS ABG -2.5(L) -2.0 - 3.0 mmol/L [facility] PO2 ARTERIAL 69(L) 83 - 108 mm Hg [facility] PH ARTERIAL 7.33(L) 7.35 - 7.45 [facility] O2 SAT EST ARTERIAL 92(L) 94 - 98 % [facility] HCO3 ARTERIAL 23 22 - 26 mmol/L [facility] PCO2 ARTERIAL 46 35 - 48 mm Hg [facility] Arterial blood specimen (specimen) 05/21/2008 8:00 AM CDT 05/21/2008 8:13 AM CDT us Viktoriya Gavin MD ABG ORDERABLES Final Resu lt Performing Organization Address [facility] de Phone Number INTERFACE SYSTEM Refer to clinic/hospital department [facility] CLIA# [id number] [address] [place] [address] * (ABNORMAL) POC RT, BLOOD GASES (05/21/2008 6:30 AM CDT) PCO2 ARTERIAL 44 35 - 48 mm Hg [facility] FIO2 55 [facility] HCO3 ARTERIAL 21(L) 22 - 26 mmol/L [facility] PATIENT'S TEMPERATURE 37.0 Degree C [facility] CALICUM IONIZED, WHOLE BLOOD 4.77 4.76 - 5.16 mg/dL [facility] PEEP POC 5 [facility] PO2 ARTERIAL 63(L) 83 - 108 mm Hg [facility] SODIUM POC 133(L) 135 - 145 mmol/L [facility] OXYGEN MODE SIMV/PS [facility] PH ARTERIAL 7.29(L) 7.35 - 7.45 [facility] BASE EXCESS ABG -5.2(L) -2.0 - 3.0 mmol/L [facility] COMMENT, GASES POC RN/MD NOTIFIED [facility] HEMATOCRIT POC 37.0 35.5 - 44.0 % [facility] O2 SAT EST ABG POC 89(L) 95 - 99 % [facility] POTASSIUM POC 4.6 3.5 - 4.9 mmol/L [facility] Blood specimen (specimen) 05/21/2008 6:30 AM CDT 05/21/2008 6:30 AM CDT Brijesh Bird MD CHEMISTRY ORDERABLES Rosenda chavez Result INTERFACE SYSTEM Refer to clinic/hospital department [facility] CLIA# [id number] [address] [place] [address] * (ABNORMAL) POC GLUCOSE (05/21/2008 6:08 AM CDT) GLUCOSE POC 133(H) 65 - 99 mg/dL [facility] Venous blood specimen (specimen) 05/21/2008 6:08 AM CDT 05/21/2008 6:08 AM CDT us Brijesh Bird MD POINT OF CARE TESTING Fin al Result INTERFACE SYSTEM Refer to clinic/hospital department [facility] CLIA# [id number] [address] [place] [place], [place] [address] * (ABNORMAL) POC RT, BLOOD GASES (05/21/2008 5:42 AM CDT) FIO2 55 [facility] HCO3 ARTERIAL 21(L) 22 - 26 mmol/L [facility] PATIENT'S TEMPERATURE 37.0 Degree C [facility] CALICUM IONIZED, WHOLE BLOOD 4.73(L) 4.76 - 5.16 mg/dL [facility] PH ARTERIAL 7.26(L) 7.35 - 7.45 [facility] SODIUM POC 134(L) 135 - 145 mmol/L [facility] COMMENT, GASES POC RN/MD NOTIFIED [facility] PCO2 ARTERIAL 47 35 - 48 mm Hg [facility] BASE EXCESS ABG -6.0(L) -2.0 - 3.0 mmol/L [facility] HEMATOCRIT POC 38.0 35.5 - 44.0 % [facility] PO2 ARTERIAL 64(L) 83 - 108 mm Hg [facility] O2 SAT EST ABG POC 88(L) 95 - 99 % [facility] POTASSIUM POC 4.8 3.5 - 4.9 mmol/L [facility] Blood specimen (specimen) 05/21/2008 5:42 AM CDT 05/21/2008 5:42 AM CDT us Brijesh Bird MD CHEMISTRY ORDERABLES Rosenda chavez Result INTERFACE SYSTEM Refer to clinic/hospital department [facility] CLIA# [id number] [address] [place] [address] * XR CHEST PA OR AP (05/21/2008 5:20 AM CDT) Anatomical Region Laterality Modality Chest Other 05/21/2008 5:20 AM CDT Narrative 05/21/2008 9:31 AM CDT [facility] [address] [place], [place] [address] Admit Date: 05/19/2008 CUNN[place]HAMABEBE Sex: F Admit Prov: BRIJESH BIRD Date: 1945 Primary Care Prov: CMRN: [id number] Room: [address] [place] [address] SSN: [id number] IMAGING SERVICES Ordering Prov: N/A Accession Number: [id number] Interpretation CHEST SINGLE VIEW 05/21/08 AT 0530 [...] - [place] [address] [place], [place] [address] Admit Date: 05/19/2008 ABEBE CUNNINGHAM Sex: F Admit Prov: BRIJESH BIRD Date: 1945 Primary Care Prov: CMRN: [id number] Room: [address] [place] [address] SSN: [id number] IMAGING SERVICES Ordering Prov: N/A Interpretation CHEST [...] GLUCOSE POC 139(H) 65 - 99 mg/dL [facility] Venous blood specimen (specimen) 05/21/2008 4:11 AM CDT 05/21/2008 4:11 AM CDT us Brijesh Bird MD POINT OF CARE TESTING Fin al Result Performing Organization Address [facility]/ZIP Co de Phone Number INTERFACE SYSTEM Refer to clinic/hospital department [facility] CLIA# [id number] [address] [place], [place] [address] * (ABNORMAL) PT AND APTT (05/21/2008 4:00 AM CDT) INR 1.2(H) 0.9 - 1.1 [facility] Comment: INR Therapeutic Range: Adult: 2.0 - 3.0 for pulmonary embolism or prophylaxis against venous thrombosis or systemic embolization. 2.0 - 3.0 for patients with tissue heart valves. 2.5 - 3.5 for patients with mechanical heart valves or post NH. Pediatric (12 years and under): 1.5 - 3.0 Although the target range in children is not well established, INR values of 1.5 - 3.0 are recommended for most patients. Higher values have been used in children with prosthetic cardiac valves and hereditary clotting disorders. (<3 days) therapeutic ranges have not been established. PROTIME 14.9 12.7 - 15.1 Seconds [facility] PTT 27.0 24.4 - 36.4 Seconds [facility] Comment: PTT Therapeutic Range: Heparin Level [...] ed INTERFACE SYSTEM Refer to clinic/hospital department [facility] CLIA# [id number] [address] [place] [address] * (ABNORMAL) COMPREHENSIVE METABOLIC PANEL (05/21/2008 4:00 AM CDT) CREATININE 0.82 0.51 - 0.95 mg/dL [facility] ALT 38(H) 0 - 31 U/L [facility] SODIUM 140 135 - 145 mmol/L [facility] ALKALINE PHOSPHATASE 57 35 - 104 U/L [facility] CO2 22 22 - 30 mmol/L [facility] BILIRUBIN TOTAL 0.2 0.2 - 1.0 mg/dL [facility] POTASSIUM 4.7 3.5 - 4.9 mmol/L [facility] TOTAL PROTEIN 5.3(L) 6.3 - 8.6 g/dL [facility] GLUCOSE 138(H) 65 - 99 mg/dL [facility] AST 155(H) 12 - 32 U/L [facility] BUN 21(H) 6 - 20 mg/dL [facility] CALCIUM 8.0(L) 8.6 - 10.2 mg/dL [facility] ALBUMIN 3.3(L) 3.4 - 4.8 g/dL [facility] CHLORIDE 111(H) 96 - 108 mmol/L [facility] GFR, >60 >=60 mL/min/1. 7 sq meter [facility] GFR >60 >=60 mL/min/1. 7 sq meter [facility] Comment: Modification of Diet in Renal Disease (MDRD) study formula. Estimated GFR rate interpretative information for both Americans and non- Americans is available on the [facility] Intranet at: [email or web address] Select: Lab Policies and Procedures Select: Reference Ranges - GFR Blood specimen (specimen) 05/21/2008 4:00 AM CDT 05/21/2008 4:21 AM CDT Viktoriya Gavin MD CHEMISTRY ORDERABLES Edite d Performing Organization Address [facility] Phone Number INTERFACE SYSTEM Refer to clinic/hospital department [facility] CLIA# [id number] [address] [place] [address] * (ABNORMAL) CVR ONLY, CKMB/CK (05/21/2008 4:00 AM CDT) Pathologist [facility] CKMB 137.4(AA) <=3.8 ng/mL [facility] Comment: Persistent abnormal result CKMB INTERP See Below [facility] Comment: Elevated CKMB,consistent with Myocardial Injury CK 1,974(H) 10 - 145 U/L [facility] CARDIAC RELATIVE INDEX 7.0(H) <=4.0 [facility] Blood specimen (specimen) 05/21/2008 4:00 AM CDT 05/21/2008 4:21 AM CDT Viktoriya Gavin MD CHEMISTRY ORDERABLES Edite d Performing Organization Address [facility] de Phone Number INTERFACE SYSTEM Refer to clinic/hospital department [facility] CLIA# [id number] [address] [place] [address] * (ABNORMAL) CBC WITH DIFFERENTIAL (05/21/2008 4:00 AM CDT) Pathologist [facility] HEMATOCRIT 38.4 35.5 - 44.0 % [facility] RDW-STDEV 49.7(H) 37.1 - 48.7 fL [facility] RBC 4.16 3.90 - 4.90 M/uL [facility] MCHC 33.3 31.5 - 35.5 % [facility] MCV 92.3 82.0 - 99.0 fL [facility] PLATELETS 129(L) 140 - 350 K/uL [facility] HEMOGLOBIN 12.8 11.8 - 14.8 g/dL [facility] RDW 14.7(H) 11.5 - 14.5 % [facility] WBC 14.4(H) 4.0 - 9.8 K/uL [facility] MCH 30.8 27.2 - 32.6 pg [facility] MPV 13.0(H) 9.3 - 12.4 fL [facility] MONOCYTES 9 3 - 13 % [facility] MONOCYTE ABSOLUTE 1.34(H) 0.10 - 1.30 K/uL [facility] NEUTROPHILS 86(H) 45 - 70 % [facility] NEUTROPHIL ABSOLUTE 12.44(H) 1.90 - 7.00 K/uL [facility] EOSINOPHILS 0 0 - 7 % [facility] EOSINOPHIL ABSOLUTE 0.00 0.00 - 0.70 K/uL [facility] LYMPHOCYTES 4(L) 16 - 45 % [facility] LYMPHOCYTE ABSOLUTE 0.62(L) 0.70 - 4.50 K/uL [facility] BASOPHILS 0 0 - 2 % [facility] BASOPHILS ABSOLUTE 0.01 0.00 - 0.20 K/uL [facility] Blood specimen (specimen) 05/21/2008 4:00 AM CDT 05/21/2008 4:21 AM CDT us Viktoriya Gavin MD HEMATOLOGY ORDERABLES Edit ed INTERFACE SYSTEM Refer to clinic/hospital department [facility] CLIA# [id number] [address] [place] [address] * (ABNORMAL) POC GLUCOSE (05/21/2008 2:50 AM CDT) GLUCOSE POC 155(H) 65 - 99 mg/dL [facility] Venous blood specimen (specimen) 05/21/2008 2:50 AM CDT 05/21/2008 2:50 AM CDT Brijesh Bird MD POINT OF CARE TESTING Fin al Result Performing Organization Address [facility] de Phone Number INTERFACE SYSTEM Refer to clinic/hospital department [facility] CLIA# [id number] [address] [place] [address] * (ABNORMAL) POC GLUCOSE (05/21/2008 1:10 AM CDT) GLUCOSE POC 159(H) 65 - 99 mg/dL [facility] Venous blood specimen (specimen) 05/21/2008 1:10 AM CDT 05/21/2008 1:10 AM CDT Brijesh Bird MD POINT OF CARE TESTING Fin al Result Performing Organization Address City/[facility] de Phone Number INTERFACE SYSTEM Refer to clinic/hospital department [facility] CLIA# [id number] [address] [place] [address] * (ABNORMAL) POC GLUCOSE (05/20/2008 11:57 PM CDT) GLUCOSE POC 158(H) 65 - 99 mg/dL [facility] Venous blood specimen (specimen) 05/20/2008 11:57 PM CDT 05/20/2008 11:57 PM CDT us Brijesh Bird MD POINT OF CARE TESTING Fin al Result Performing Organization Address [facility] de Phone Number INTERFACE SYSTEM Refer to clinic/hospital department [facility] CLIA# [id number] [address] [place] [address] * (ABNORMAL) POC GLUCOSE (05/20/2008 10:21 PM CDT) GLUCOSE POC 156(H) 65 - 99 mg/dL [facility] Venous blood specimen (specimen) 05/20/2008 10:21 PM CDT 05/20/2008 10:21 PM CDT us Brijesh Bird MD POINT OF CARE TESTING Fin al Result Performing Organization Address [facility] de Phone Number INTERFACE SYSTEM Refer to clinic/hospital department [facility] CLIA# [id number] [address] [place] [address] * (ABNORMAL) POC GLUCOSE (05/20/2008 9:24 PM CDT) GLUCOSE POC 145(H) 65 - 99 mg/dL [facility] Venous blood specimen (specimen) 05/20/2008 9:24 PM CDT 05/20/2008 9:24 PM CDT Brijesh Bird MD POINT OF CARE TESTING Fin al Result Performing Organization Address [facility] de Phone Number INTERFACE SYSTEM Refer to clinic/hospital department [facility] CLIA# [id number] [address] [place] [address] * (ABNORMAL) POC GLUCOSE (05/20/2008 8:11 PM CDT) GLUCOSE POC 148(H) 65 - 99 mg/dL [facility] Venous blood specimen (specimen) 05/20/2008 8:11 PM CDT 05/20/2008 8:11 PM CDT us Brijesh Bird MD POINT OF CARE TESTING Fin al Result Performing Organization Address [facility] de Phone Number INTERFACE SYSTEM Refer to clinic/hospital department [facility] CLIA# [id number] [address] [place] [address] * (ABNORMAL) CVR ONLY, CKMB/CK (05/20/2008 7:25 PM CDT) CKMB 166.9(AA) <=3.8 ng/mL [facility] Comment: Persistent abnormal result CKMB INTERP See Below [facility] Comment: Elevated CKMB,consistent with Myocardial Injury CK 2,169(H) 10 - 145 U/L [facility] CARDIAC RELATIVE INDEX 7.7(H) <=4.0 [facility] Blood specimen (specimen) 05/20/2008 7:25 PM CDT 05/20/2008 7:31 PM CDT us Viktoriya Gavin MD CHEMISTRY ORDERABLES Edite d Performing Organization Address [facility] Phone Number INTERFACE SYSTEM Refer to clinic/hospital department [facility] CLIA# [id number] [address] [place] [address] * (ABNORMAL) POC GLUCOSE (05/20/2008 7:14 PM CDT) GLUCOSE POC 154(H) 65 - 99 mg/dL [facility] Venous blood specimen (specimen) 05/20/2008 7:14 PM CDT 05/20/2008 7:14 PM CDT us Brijesh Bird MD POINT OF CARE TESTING Fin al Result Performing Organization Address [facility] de Phone Number INTERFACE SYSTEM Refer to clinic/hospital department [facility] CLIA# [id number] [address] [place] [address] * MAGNESIUM LEVEL (05/20/2008 6:40 PM CDT) MAGNESIUM 2.4 1.5 - 2.5 mg/dL [facility] Blood specimen (specimen) 05/20/2008 6:40 PM CDT 05/20/2008 6:48 PM CDT Viktoriya Gavin MD CHEMISTRY ORDERABLES Final Result Performing Organization Address [facility] Phone Number INTERFACE SYSTEM Refer to clinic/hospital department [facility] CLIA# [id number] [address] [place] [address] * POTASSIUM LEVEL (05/20/2008 6:40 PM CDT) POTASSIUM 4.9 3.5 - 4.9 mmol/L [facility] Blood specimen (specimen) 05/20/2008 6:40 PM CDT 05/20/2008 6:48 PM CDT Viktoriya Gavin MD CHEMISTRY ORDERABLES Final Result Performing Organization Address [facility] Phone Number INTERFACE SYSTEM Refer to clinic/hospital department [facility] CLIA# [id number] [address] [place] [address] * (ABNORMAL) POC GLUCOSE (05/20/2008 6:06 PM CDT) GLUCOSE POC 146(H) 65 - 99 mg/dL [facility] Venous blood specimen (specimen) 05/20/2008 6:06 PM CDT 05/20/2008 6:06 PM CDT Brijesh Bird MD POINT OF CARE TESTING Fin al Result Performing Organization Address [facility] de Phone Number INTERFACE SYSTEM Refer to clinic/hospital department [facility] CLIA# [id number] [address] [place] [address] * (ABNORMAL) POC GLUCOSE (05/20/2008 4:46 PM CDT) GLUCOSE POC 143(H) 65 - 99 mg/dL [facility] Venous blood specimen (specimen) 05/20/2008 4:46 PM CDT 05/20/2008 4:46 PM CDT us Brijesh Bird MD POINT OF CARE TESTING Fin al Result Performing Organization Address [facility] Phone Number INTERFACE SYSTEM Refer to clinic/hospital department [facility] CLIA# [id number] [address] [place] [address] * POTASSIUM LEVEL (05/20/2008 4:25 PM CDT) POTASSIUM 4.5 3.5 - 4.9 mmol/L [facility] Blood specimen (specimen) 05/20/2008 4:25 PM CDT 05/20/2008 4:35 PM CDT us Viktoriya Gavin MD CHEMISTRY ORDERABLES Final Result Performing Organization Address [facility] Phone Number INTERFACE SYSTEM Refer to clinic/hospital department [facility] CLIA# [id number] [address] [place] [address] * (ABNORMAL) POC GLUCOSE (05/20/2008 3:51 PM CDT) GLUCOSE POC 146(H) 65 - 99 mg/dL [facility] Venous blood specimen (specimen) 05/20/2008 3:51 PM CDT 05/20/2008 3:51 PM CDT us Brijesh Bird MD POINT OF CARE TESTING Fin al Result Performing Organization Address [facility]/State/ZIP Co de Phone Number INTERFACE SYSTEM Refer to clinic/hospital department [facility] CLIA# [id number] [address] [place] [address] * (ABNORMAL) POC GLUCOSE (05/20/2008 3:16 PM CDT) [facility] Signature GLUCOSE POC 149(H) 65 - 99 mg/dL [facility] Venous blood specimen (specimen) 05/20/2008 3:16 PM CDT 05/20/2008 3:16 PM CDT us Brijesh Bird MD POINT OF CARE TESTING Fin al Result INTERFACE SYSTEM Refer to clinic/hospital department [facility] CLIA# [id number] [address] [place] [address] * (ABNORMAL) POC RT, BLOOD GASES (05/20/2008 12:58 PM CDT) [facility] BASE EXCESS VENOUS -7.6(L) -2.0 - 3.0 mmol/L [facility] HEMATOCRIT POC 26.0(L) 35.5 - 44.0 % [facility] PEEP POC 5 [facility] O2 SAT EST MVBG POC 61 40 - 70 % [facility] POTASSIUM POC 3.0(L) 3.5 - 4.9 mmol/L [facility] OXYGEN MODE SIMV [facility] PCO2 VENOUS 29(L) 38 - 50 mm Hg [facility] HCO3 MIXED VENOUS 17(L) 22 - 29 mmol/L [facility] COMMENT, GASES POC RN AWARE [facility] FIO2 50 [facility] PH MVBG 7.37 7.32 - 7.43 [facility] PATIENT'S TEMPERATURE 37.0 Degree C [facility] CALICUM IONIZED, WHOLE BLOOD 5.09 4.76 - 5.16 mg/dL [facility] PO2 MVBG 33 25 - 40 mm Hg [facility] TIDAL VOLUME POC 700 [facility] SODIUM POC 145 135 - 145 mmol/L [facility] Blood specimen (specimen) 05/20/2008 12:58 PM CDT 05/20/2008 12:58 PM CDT Brijesh Bird MD CHEMISTRY ORDERABLES Rosenda l Result Performing Organization Address [facility] Phone Number INTERFACE SYSTEM Refer to clinic/hospital department [facility] CLIA# [id number] [address] [place] [address] * (ABNORMAL) POC GLUCOSE (05/20/2008 12:39 PM CDT) GLUCOSE POC 121(H) 65 - 99 mg/dL [facility] Venous blood specimen (specimen) 05/20/2008 12:39 PM CDT 05/20/2008 12:39 PM CDT Brijesh Bird MD POINT OF CARE TESTING Fin al Result Performing Organization Address [facility] de Phone Number INTERFACE SYSTEM Refer to clinic/hospital department [facility] CLIA# [id number] [address] [place] [address] * (ABNORMAL) POC GLUCOSE (05/20/2008 11:22 AM CDT) GLUCOSE POC 120(H) 65 - 99 mg/dL [facility] Venous blood specimen (specimen) 05/20/2008 11:22 AM CDT 05/20/2008 11:22 AM CDT Brijesh Bird MD POINT OF CARE TESTING Fin al Result INTERFACE SYSTEM Refer to clinic/hospital department [facility] CLIA# [id number] [address] [place] [address] * (ABNORMAL) POC RT, BLOOD GASES (05/20/2008 11:21 AM CDT) FIO2 60 [facility] PATIENT'S TEMPERATURE 37.0 Degree C [facility] POTASSIUM POC 4.1 3.5 - 4.9 mmol/L [facility] CALICUM IONIZED, WHOLE BLOOD 4.85 4.76 - 5.16 mg/dL [facility] PEEP POC 5 [facility] PO2 ARTERIAL 109(H) 83 - 108 mm Hg [facility] COMMENT, GASES POC RN AWARE [facility] OXYGEN MODE SIMV/PS [facility] PH ARTERIAL 7.41 7.35 - 7.45 [facility] BASE EXCESS ABG -0.4 -2.0 - 3.0 mmol/L [facility] O2 SAT EST ABG POC 98 95 - 99 % [facility] HEMATOCRIT POC 31.0(L) 35.5 - 44.0 % [facility] SODIUM POC 134(L) 135 - 145 mmol/L [facility] PCO2 ARTERIAL 38 35 - 48 mm Hg [facility] HCO3 ARTERIAL 24 22 - 26 mmol/L [facility] Blood specimen (specimen) 05/20/2008 11:21 AM CDT 05/20/2008 11:21 AM CDT Brijesh Bird MD CHEMISTRY ORDERABLES Rosenda chavez Result INTERFACE SYSTEM Refer to clinic/hospital department [facility] CLIA# [id number] [address] [place] [address] * (ABNORMAL) PT AND APTT (05/20/2008 11:20 AM CDT) PROTIME 17.3(H) 12.7 - 15.1 Seconds [facility] INR 1.4(H) 0.9 - 1.1 [facility] Comment: INR Therapeutic Range: Adult: 2.0 - 3.0 for pulmonary embolism or prophylaxis against venous thrombosis or systemic embolization. 2.0 - 3.0 for patients with tissue heart valves. 2.5 - 3.5 for patients with mechanical heart valves or post NH. Pediatric (12 years and under): 1.5 - 3.0 Although the target range in children is not well established, INR values of 1.5 - 3.0 are recommended for most patients. Higher values have been used in children with prosthetic cardiac valves and hereditary clotting disorders. (<3 days) therapeutic ranges have not been established. PTT 31.9 24.4 - 36.4 Seconds [facility] Comment: PTT Therapeutic Range: Heparin Level [...] ed INTERFACE SYSTEM Refer to clinic/hospital department [facility] CLIA# [id number] [address] [place] [address] * (ABNORMAL) MAGNESIUM LEVEL (05/20/2008 11:20 AM CDT) MAGNESIUM 2.7(H) 1.5 - 2.5 mg/dL [facility] Blood specimen (specimen) 05/20/2008 11:20 AM CDT 05/20/2008 11:25 AM CDT Viktoriya Gavin MD CHEMISTRY ORDERABLES Final Result Performing Organization Address [facility] Phone Number INTERFACE SYSTEM Refer to clinic/hospital department [facility] CLIA# [id number] [address] [place] [address] * (ABNORMAL) CVR ONLY, CKMB/CK (05/20/2008 11:20 AM CDT) CKMB 12.5(AA) <=3.8 ng/mL [facility] Comment: Results called to yenifer at 05/20/08 11:54 AM and read back verified. CKMB INTERP See Below [facility] Comment: Elevated CKMB,consistent with Myocardial Injury. CK 121 10 - 145 U/L [facility] CARDIAC RELATIVE INDEX N/A <=4.0 [facility] Blood specimen (specimen) 05/20/2008 11:20 AM CDT 05/20/2008 11:25 AM CDT Viktoriya Gavin MD CHEMISTRY ORDERABLES Edite d Performing Organization Address [facility] Phone Number INTERFACE SYSTEM Refer to clinic/hospital department [facility] CLIA# [id number] [address] [place] [address] * (ABNORMAL) BASIC METABOLIC PANEL (05/20/2008 11:20 AM CDT) CALCIUM 8.4(L) 8.6 - 10.2 mg/dL [facility] CO2 22 22 - 30 mmol/L [facility] CREATININE 0.80 0.51 - 0.95 mg/dL [facility] POTASSIUM 4.2 3.5 - 4.9 mmol/L [facility] BUN 14 6 - 20 mg/dL [facility] CHLORIDE 109(H) 96 - 108 mmol/L [facility] GLUCOSE 111(H) 65 - 99 mg/dL [facility] SODIUM 136 135 - 145 mmol/L [facility] GFR, >60 >=60 mL/min/1. 7 sq meter [facility] GFR >60 >=60 mL/min/1. 7 sq meter [facility] Comment: Modification of Diet in Renal Disease (MDRD) study formula. Estimated GFR rate interpretative information for both Americans and non- Americans is available on the [facility] Intranet at: [email or web address] Select: Lab Policies and Procedures Select: Reference Ranges - GFR Blood specimen (specimen) 05/20/2008 11:20 AM CDT 05/20/2008 11:25 AM CDT us Viktoriya Gavin MD CHEMISTRY ORDERABLES Edite d INTERFACE SYSTEM Refer to clinic/hospital department [facility] CLIA# [id number] [address] [place] [address] * (ABNORMAL) CBC WITH DIFFERENTIAL (05/20/2008 11:20 AM CDT) WBC 7.4 4.0 - 9.8 K/uL [facility] MCH 30.8 27.2 - 32.6 pg [facility] MPV 12.6(H) 9.3 - 12.4 fL [facility] HEMATOCRIT 33.0(L) 35.5 - 44.0 % [facility] RDW-STDEV 45.9 37.1 - 48.7 fL [facility] RBC 3.64(L) 3.90 - 4.90 M/uL [facility] MCHC 33.9 31.5 - 35.5 % [facility] MCV 90.7 82.0 - 99.0 fL [facility] PLATELETS 111(L) 140 - 350 K/uL [facility] HEMOGLOBIN 11.2(L) 11.8 - 14.8 g/dL [facility] RDW 13.7 11.5 - 14.5 % [facility] LYMPHOCYTES 19 16 - 45 % [facility] LYMPHOCYTE ABSOLUTE 1.37 0.70 - 4.50 K/uL [facility] BASOPHILS 0 0 - 2 % [facility] BASOPHILS ABSOLUTE 0.03 0.00 - 0.20 K/uL [facility] MONOCYTES 1(L) 3 - 13 % [facility] MONOCYTE ABSOLUTE 0.10 0.10 - 1.30 K/uL [facility] NEUTROPHILS 78(H) 45 - 70 % [facility] NEUTROPHIL ABSOLUTE 5.76 1.90 - 7.00 K/uL [facility] EOSINOPHILS 2 0 - 7 % [facility] EOSINOPHIL ABSOLUTE 0.11 0.00 - 0.70 K/uL [facility] Blood specimen (specimen) 05/20/2008 11:20 AM CDT 05/20/2008 11:25 AM CDT us Viktoriya Gavin MD HEMATOLOGY ORDERABLES Edit ed INTERFACE SYSTEM Refer to clinic/hospital department [facility] CLIA# [id number] [address] [place] [address] * XR CHEST PA OR AP (05/20/2008 11:00 AM CDT) Anatomical Region Laterality Modality Chest Other 05/20/2008 11:0 0 AM CDT Narrative 05/20/2008 11:45 AM CDT [address] [address] [place], [place] [address] Admit Date: 05/19/2008 ABEBE [place] Sex: F Admit Prov: BRIJESH BIRD Date: 1945 Primary Care Prov: CMRN: [id number] Room: [address] [place] [address] SSN: [id number] IMAGING SERVICES Ordering Prov: N/A Accession Number: [id number] Interpretation Portable AP supine chest of 1120 hours. History: Chest pain. Lines: Since the previous exam of May 19, the patient has undergone median sternotomy. The chest tubes are in expected position. The endotracheal tube tip is at the thoracic inlet. The Rickreall-Ambrosio catheter tip is overlying the main pulmonary artery. There is a mild hazy atelectatic change in the left lung. There is no pneumothorax. The heart size is mildly enlarged. Opinion: Mild cardiomegaly and mild left atelectasis . Dictated by: KANDACE MTZ 05/20/2008 11:42 Electronically signed by: KANDACE MTZ 05/20/2008 11:43 Procedure Note Kandace Mtz MD - 05/20/2008 [address] [place], [place] [address] Admit Date: 05/19/2008 ABEBE CUNNINGHAM Sex: F Admit Prov: BRIJESH BIRD Date: 1945 Primary Care Prov: CMRN: [id number] Room: [address] [place] [address] SSN: [id number] IMAGING SERVICES Ordering Prov: N/A Interpretation Portable AP supine chest of 1120 hours. History: Chest pain. Lines: Since the previous exam of May 19, the patient hasundergone median sternotomy. The chest tubes are in expected position. The endotracheal tube tip is at the thoracic inlet. The Rickreall-Ganzcatheter tip is overlying the main pulmonary artery. [...] AM CDT) COMMENT, GASES POC POST BYPASS [facility] PATIENT'S TEMPERATURE 37.0 Degree C [facility] LACTIC ACID 2.3(H) 0.5 - 2.2 mmol/L [facility] CALICUM IONIZED, WHOLE BLOOD 4.97 4.76 - 5.16 mg/dL [facility] PO2 ARTERIAL 220(H) 83 - 108 mm Hg [facility] SODIUM POC 136 135 - 145 mmol/L [facility] PH ARTERIAL 7.35(L) 7.35 - 7.45 [facility] BASE EXCESS ABG -0.9 -2.0 - 3.0 mmol/L [facility] HEMATOCRIT POC 26.0(L) 35.5 - 44.0 % [facility] GLUCOSE POC 108(H) 65 - 99 mg/dL [facility] O2 SAT EST ABG POC 100(H) 95 - 99 % [facility] POTASSIUM POC 4.7 3.5 - 4.9 mmol/L [facility] TCO2, ABG POC 26(H) 19 - 24 mmol/L [facility] PCO2 ARTERIAL 45 35 - 48 mm Hg [facility] HCO3 ARTERIAL 25 22 - 26 mmol/L [facility] Blood specimen (specimen) 05/20/2008 10:48 AM CDT 05/20/2008 10:48 AM CDT us Brijesh Bird MD CHEMISTRY ORDERABLES Rosenda chavez Result INTERFACE SYSTEM Refer to clinic/hospital department [facility] CLIA# [id number] [address] [place] [address] * (ABNORMAL) POC RT, BLOOD GASES (05/20/2008 10:35 AM CDT) PCO2 ARTERIAL 37 35 - 48 mm Hg [facility] HCO3 ARTERIAL 24 22 - 26 mmol/L [facility] COMMENT, GASES POC POST PROTAMINE [facility] PATIENT'S TEMPERATURE 37.0 Degree C [facility] LACTIC ACID 2.1 0.5 - 2.2 mmol/L [facility] CALICUM IONIZED, WHOLE BLOOD 4.81 4.76 - 5.16 mg/dL [facility] PO2 ARTERIAL 100 83 - 108 mm Hg [facility] SODIUM POC 136 135 - 145 mmol/L [facility] PH ARTERIAL 7.41 7.35 - 7.45 [facility] BASE EXCESS ABG -1.0 -2.0 - 3.0 mmol/L [facility] HEMATOCRIT POC 25.0(L) 35.5 - 44.0 % [facility] GLUCOSE POC 110(H) 65 - 99 mg/dL [facility] O2 SAT EST ABG POC 98 95 - 99 % [facility] POTASSIUM POC 4.5 3.5 - 4.9 mmol/L [facility] TCO2, ABG POC 25(H) 19 - 24 mmol/L [facility] Blood specimen (specimen) 05/20/2008 10:35 AM CDT 05/20/2008 10:35 AM CDT us Brijesh Bird MD CHEMISTRY ORDERABLES Rosenda chavez Result INTERFACE SYSTEM Refer to clinic/hospital department [facility] CLIA# [id number] [address] [place] [address] * (ABNORMAL) POC RT, BLOOD GASES (05/20/2008 10:05 AM CDT) PH ARTERIAL 7.48(H) 7.35 - 7.45 [facility] BASE EXCESS ABG 1.1 -2.0 - 3.0 mmol/L [facility] GLUCOSE POC 112(H) 65 - 99 mg/dL [facility] HEMATOCRIT POC 24.0(L) 35.5 - 44.0 % [facility] O2 SAT EST ABG POC 100(H) 95 - 99 % [facility] TCO2, ABG POC 26(H) 19 - 24 mmol/L [facility] POTASSIUM POC 5.1(H) 3.5 - 4.9 mmol/L [facility] PCO2 ARTERIAL 33(L) 35 - 48 mm Hg [facility] COMMENT, GASES POC CPB #4 [facility] HCO3 ARTERIAL 25 22 - 26 mmol/L [facility] PATIENT'S TEMPERATURE 37.0 Degree C [facility] CALICUM IONIZED, WHOLE BLOOD 4.73(L) 4.76 - 5.16 mg/dL [facility] LACTIC ACID 1.7 0.5 - 2.2 mmol/L [facility] PO2 ARTERIAL 341(H) 83 - 108 mm Hg [facility] SODIUM POC 133(L) 135 - 145 mmol/L [facility] Blood specimen (specimen) 05/20/2008 10:05 AM CDT 05/20/2008 10:05 AM CDT us Brijesh Bird MD CHEMISTRY ORDERABLES Rosenda chavez Result INTERFACE SYSTEM Refer to clinic/hospital department [facility] CLIA# [id number] [address] [place] [address] * (ABNORMAL) POC RT, BLOOD GASES (05/20/2008 9:35 AM CDT) O2 SAT EST ABG POC 100(H) 95 - 99 % [facility] HEMATOCRIT POC 24.0(L) 35.5 - 44.0 % [facility] BASE EXCESS ABG 0.1 -2.0 - 3.0 mmol/L [facility] GLUCOSE POC 107(H) 65 - 99 mg/dL [facility] PCO2 ARTERIAL 38 35 - 48 mm Hg [facility] POTASSIUM POC 4.6 3.5 - 4.9 mmol/L [facility] PCO2 TEMP CORRECT 32 mm Hg [facility] TCO2, ABG POC 26(H) 19 - 24 mmol/L [facility] PATIENT'S TEMPERATURE 33.0 Degree C [facility] HCO3 ARTERIAL 25 22 - 26 mmol/L [facility] COMMENT, GASES POC CPB #3 [facility] PO2 ARTERIAL 251(H) 83 - 108 mm Hg [facility] PO2 TEMP CORRECT 233 mm Hg [facility] LACTIC ACID 1.9 0.5 - 2.2 mmol/L [facility] CALICUM IONIZED, WHOLE BLOOD 4.93 4.76 - 5.16 mg/dL [facility] PH ARTERIAL 7.42 7.35 - 7.45 [facility] PH TEMP CORRECT 7.48 [facility] SODIUM POC 134(L) 135 - 145 mmol/L [facility] Blood specimen (specimen) 05/20/2008 9:35 AM CDT 05/20/2008 9:35 AM CDT us Brijesh Bird MD CHEMISTRY ORDERABLES Rosenda chavez Result INTERFACE SYSTEM Refer to clinic/hospital department [facility] CLIA# [id number] [address] [place], [place] [id number] * (ABNORMAL) POC RT, BLOOD GASES (05/20/2008 9:06 AM CDT) GLUCOSE POC 91 65 - 99 mg/dL [facility] HEMATOCRIT POC 22.0(AA) 35.5 - 44.0 % [facility] PCO2 ARTERIAL 38 35 - 48 mm Hg [facility] PCO2 TEMP CORRECT 32 mm Hg [facility] TCO2, ABG POC 26(H) 19 - 24 mmol/L [facility] POTASSIUM POC 3.8 3.5 - 4.9 mmol/L [facility] PATIENT'S TEMPERATURE 33.0 Degree C [facility] COMMENT, GASES POC CPB #2 [facility] HCO3 ARTERIAL 25 22 - 26 mmol/L [facility] PO2 ARTERIAL 275(H) 83 - 108 mm Hg [facility] CALICUM IONIZED, WHOLE BLOOD 4.37(L) 4.76 - 5.16 mg/dL [facility] PO2 TEMP CORRECT 257 mm Hg [facility] LACTIC ACID 2.1 0.5 - 2.2 mmol/L [facility] PH ARTERIAL 7.42 7.35 - 7.45 [facility] PH TEMP CORRECT 7.48 [facility] SODIUM POC 136 135 - 145 mmol/L [facility] O2 SAT EST ABG POC 100(H) 95 - 99 % [facility] BASE EXCESS ABG 0.1 -2.0 - 3.0 mmol/L [facility] Blood specimen (specimen) 05/20/2008 9:06 AM CDT 05/20/2008 9:06 AM CDT us Brijesh Bird MD CHEMISTRY ORDERABLES Rosenda chavez Result INTERFACE SYSTEM Refer to clinic/hospital department [facility] CLIA# [id number] [address] [place] [address] * (ABNORMAL) POC RT, BLOOD GASES (05/20/2008 9:02 AM CDT) [facility] IONIZED, WHOLE BLOOD 4.45(L) 4.76 - 5.16 mg/dL [facility] LACTIC ACID 2.1 0.5 - 2.2 mmol/L [facility] PH TEMP CORRECT 7.39 [facility] SODIUM POC 135 135 - 145 mmol/L [facility] O2 SAT EST MVBG POC 67 40 - 70 % [facility] PO2 TEMP CORRECT 29 mm Hg [facility] GLUCOSE POC 92 65 - 99 mg/dL [facility] HEMATOCRIT POC 22.0(AA) 35.5 - 44.0 % [facility] PCO2 VENOUS 52(H) 38 - 50 mm Hg [facility] PCO2 TEMP CORRECT 44 mm Hg [facility] TCO2, MVBG POC 29(H) 22 - 26 mmol/L [facility] POTASSIUM POC 3.9 3.5 - 4.9 mmol/L [facility] PATIENT'S TEMPERATURE 33.0 Degree C [facility] BASE EXCESS VENOUS 1.2 -2.0 - 3.0 mmol/L [facility] COMMENT, GASES POC CPB #1 [facility] PO2 MVBG 38 25 - 40 mm Hg [facility] HCO3 MIXED VENOUS 27 22 - 29 mmol/L [facility] PH MVBG 7.33 7.32 - 7.43 [facility] Blood specimen (specimen) 05/20/2008 9:02 AM CDT 05/20/2008 9:02 AM CDT us Brijesh Bird MD CHEMISTRY ORDERABLES Rosenda chavez Result INTERFACE SYSTEM Refer to clinic/hospital department [facility] CLIA# [id number] [address] [place] [address] * (ABNORMAL) POC RT, BLOOD GASES (05/20/2008 8:43 AM CDT) PO2 ARTERIAL 259(H) 83 - 108 mm Hg [facility] SODIUM POC 137 135 - 145 mmol/L [facility] PH ARTERIAL 7.39 7.35 - 7.45 [facility] BASE EXCESS ABG 3.5(H) -2.0 - 3.0 mmol/L [facility] HEMATOCRIT POC 31.0(L) 35.5 - 44.0 % [facility] GLUCOSE POC 100(H) 65 - 99 mg/dL [facility] O2 SAT EST ABG POC 100(H) 95 - 99 % [facility] POTASSIUM POC 3.8 3.5 - 4.9 mmol/L [facility] TCO2, ABG POC 31(H) 19 - 24 mmol/L [facility] PCO2 ARTERIAL 48 35 - 48 mm Hg [facility] HCO3 ARTERIAL 29(H) 22 - 26 mmol/L [facility] COMMENT, GASES POC POST HEPARIN [facility] PATIENT'S TEMPERATURE 37.0 Degree C [facility] LACTIC ACID 1.2 0.5 - 2.2 mmol/L [facility] CALICUM IONIZED, WHOLE BLOOD 4.53(L) 4.76 - 5.16 mg/dL [facility] Blood specimen (specimen) 05/20/2008 8:43 AM CDT 05/20/2008 8:43 AM CDT us Brijesh Bird MD CHEMISTRY ORDERABLES Rosenda chavez Result INTERFACE SYSTEM Refer to clinic/hospital department [facility] CLIA# [id number] [address] [place] [address] * (ABNORMAL) POC RT, BLOOD GASES (05/20/2008 7:37 AM CDT) SODIUM POC 137 135 - 145 mmol/L [facility] PH ARTERIAL 7.43 7.35 - 7.45 [facility] BASE EXCESS ABG 3.8(H) -2.0 - 3.0 mmol/L [facility] GLUCOSE POC 95 65 - 99 mg/dL [facility] HEMATOCRIT POC 31.0(L) 35.5 - 44.0 % [facility] O2 SAT EST ABG POC 100(H) 95 - 99 % [facility] TCO2, ABG POC 30(H) 19 - 24 mmol/L [facility] POTASSIUM POC 3.5 3.5 - 4.9 mmol/L [facility] PCO2 ARTERIAL 43 35 - 48 mm Hg [facility] COMMENT, GASES POC POST INDUCTION [facility] HCO3 ARTERIAL 28(H) 22 - 26 mmol/L [facility] PATIENT'S TEMPERATURE 37.0 Degree C [facility] CALICUM IONIZED, WHOLE BLOOD 4.53(L) 4.76 - 5.16 mg/dL [facility] LACTIC ACID 1.5 0.5 - 2.2 mmol/L [facility] PO2 ARTERIAL 285(H) 83 - 108 mm Hg [facility] Blood specimen (specimen) 05/20/2008 7:37 AM CDT 05/20/2008 7:37 AM CDT us Brijesh Bird MD CHEMISTRY ORDERABLES Rosenda chavez Result Performing Organization Address City/[facility] de Phone Number INTERFACE SYSTEM Refer to clinic/hospital department [facility] CLIA# [id number] [address] [place] [address] * TYPE & CROSS ADDITIONAL PACKED CELLS (05/20/2008 6:30 AM CDT) Specimen of unknown material (specimen) 05/20/2008 6:30 AM CDT 05/20/2008 6:40 AM CDT Narrative INTERFACE SYSTEM - 05/20/2008 6:41 AM CDT please keep 2 units ahead for surgery us Viktoriya Gavin MD BLOOD BANK ORDERABLES Roesnda chavez Result Performing Organization Address [facility] de Phone Number INTERFACE SYSTEM Refer to clinic/hospital department * XR CHEST PA AND LATERAL (05/19/2008 10:01 PM CDT) Anatomical Region Laterality Modality Chest Other 05/19/2008 10:0 1 PM CDT Narrative 05/20/2008 7:14 AM CDT [facility] [address] [place], [place] [address] Admit Date: 05/19/2008 ABEBE [place]AM Sex: F Admit Prov: BRIJESH BIRD Date: 1945 Primary Care Prov: CMRN: [id number] Room: [place] [address] SSN: [id number] IMAGING SERVICES Ordering Prov: N/A Accession Number: [id number] Interpretation CHEST, PA AND LATERAL, 05/19/2008 History: Angina, chest pain, preoperative examination. Findings: No infiltrate, pleural effusion or pneumothorax is present. The heart is enlarged. Mediastinum and pulmonary vascularity are normal. Impression: No active pulmonary disease. . Dictated by: NATE PEOPLES 05/19/2008 22:17 Electronically signed by: NATE PEOPLES 05/20/2008 07:13 Transcribed: 05/19/2008 22:32 SJ Procedure Note Nate Peoples MD - 05/20/[address] [address] Admit Date: 05/19/2008 ABEBE CUNNINGHAM [place] Sex: F Admit Prov: BRIJESH BIRD Date: 1945 [facility] Prov: CMRN: [id number] Room: [place] [address] SSN: [id number] IMAGING SERVICES Ordering Prov: N/A Interpretation CHEST, [...] (05/19/2008 10:00 PM CDT) PRELIMINARY REPORT Pending [facility] FINAL REPORT No growth 24 hours [facility] 05/19/2008 10:0 0 PM CDT 05/19/2008 11:22 PM CDT us Viktoriya Gavin MD MICROBIOLOGY - GENERAL ORD ERABLES Final Result Performing Organization Address City/[facility]/ZIP Co de Phone Number INTERFACE SYSTEM Refer to clinic/hospital department [facility] CLIA# [id number] [address] [place] [address] * (ABNORMAL) URINALYSIS (05/19/2008 10:00 PM CDT) PH UA 5.0 5.0 - 8.0 [facility] WBC UA 13(H) 0 - 5 /HPF [facility] KETONES UA Negative Negative [facility] CLARITY UA Slt. Cloudy(A) Clear [facility] BILIRUBIN UA Negative Negative [facility] PROTEIN UA Negative Negative [facility] LEUKOCYTE ESTERASE UA 3+(A) Negative [facility] RBC UA 3 0 - 4 /HPF [facility] SPECIFIC GRAVITY UA 1.007 1.001 - 1.035 [facility] GLUCOSE UA Negative Negative [facility] BLOOD UA Negative Negative [facility] COLOR UA Colorless [facility] NITRITE UA Negative Negative [facility] EPITHELIAL CELLS, URINE Many /HPF [facility] UROBILINOGEN UA <1 <=1 mg/dL [facility] 05/19/2008 10:0 0 PM CDT 05/19/2008 10:31 PM CDT us Viktoriya Gavin MD URINE ORDERABLES Final Res ult Performing Organization Address City/[facility]/ZIP Co de Phone Number INTERFACE SYSTEM Refer to clinic/hospital department [facility] CLIA# [id number] [address] [place] [address] * URINALYSIS WITH REFLEX CULTURE (05/19/2008 10:00 PM CDT) URINE CULTURE ORDER Culture ordered [facility] Comment: Criteria for a reflex culture [...] ult INTERFACE SYSTEM Refer to clinic/hospital department [facility] CLIA# [id number] [address] [facility] [place] [address] * CBC WITH DIFFERENTIAL (05/19/2008 4:15 PM CDT) MCV 93.0 82.0 - 99.0 fL [facility] PLATELETS 176 140 - 350 K/uL [facility] HEMOGLOBIN 12.5 11.8 - 14.8 g/dL [facility] RDW 13.1 11.5 - 14.5 % [facility] WBC 4.7 4.0 - 9.8 K/uL [facility] MCH 31.3 27.2 - 32.6 pg [facility] MPV 12.4 9.3 - 12.4 fL [facility] HEMATOCRIT 37.2 35.5 - 44.0 % [facility] RDW-STDEV 43.9 37.1 - 48.7 fL [facility] RBC 4.00 3.90 - 4.90 M/uL [facility] MCHC 33.6 31.5 - 35.5 % [facility] NEUTROPHIL ABSOLUTE 2.47 1.90 - 7.00 K/uL [facility] EOSINOPHILS 3 0 - 7 % [facility] EOSINOPHIL ABSOLUTE 0.16 0.00 - 0.70 K/uL [facility] LYMPHOCYTES 38 16 - 45 % [facility] LYMPHOCYTE ABSOLUTE 1.78 0.70 - 4.50 K/uL [facility] BASOPHILS 1 0 - 2 % [facility] BASOPHILS ABSOLUTE 0.04 0.00 - 0.20 K/uL [facility] MONOCYTES 5 3 - 13 % [facility] MONOCYTE ABSOLUTE 0.22 0.10 - 1.30 K/uL [facility] NEUTROPHILS 53 45 - 70 % [facility] Blood specimen (specimen) 05/19/2008 4:15 PM CDT 05/19/2008 4:32 PM CDT us Viktoriya Gavin MD HEMATOLOGY ORDERABLES Edit ed Performing Organization Address [facility] de Phone Number INTERFACE SYSTEM Refer to clinic/hospital department [facility] CLIA# [id number] [address] [facility] [address] * POC ACTIVATED CLOTTING TIME (05/19/2008 2:25 PM CDT) ACT POC 121 Seconds [facility] Comment: ansiNote sheath pull range change effective 02/24/2006. ACT value for sheath pull at [facility] has been established to be < or = to 140. (See also Nursing Procedures for sheath pull in related nursing areas) Blood specimen (specimen) 05/19/2008 2:25 PM CDT 05/19/2008 2:25 PM CDT us Brijesh Bird MD POINT OF CARE TESTING Fin al Result Performing Organization Address [facility]/State/ZIP Co de Phone Number INTERFACE SYSTEM Refer to clinic/hospital department [facility] CLIA# [id number] [address] [place] [address] * (ABNORMAL) COMPREHENSIVE METABOLIC PANEL (05/19/2008 1:25 PM CDT) AST 18 12 - 32 U/L [facility] BUN 14 6 - 20 mg/dL [facility] CALCIUM 9.1 8.6 - 10.2 mg/dL [facility] ALBUMIN 3.6 3.4 - 4.8 g/dL [facility] CHLORIDE 104 96 - 108 mmol/L [facility] CREATININE 0.70 0.51 - 0.95 mg/dL [facility] ALT 19 0 - 31 U/L [facility] SODIUM 137 135 - 145 mmol/L [facility] ALKALINE PHOSPHATASE 75 35 - 104 U/L [facility] CO2 25 22 - 30 mmol/L [facility] BILIRUBIN TOTAL 0.2 0.2 - 1.0 mg/dL [facility] POTASSIUM 3.7 3.5 - 4.9 mmol/L [facility] TOTAL PROTEIN 5.9(L) 6.3 - 8.6 g/dL [facility] GLUCOSE 88 65 - 99 mg/dL [facility] GFR, >60 >=60 mL/min/1. 7 sq meter [facility] GFR >60 >=60 mL/min/1. 7 sq meter [facility] Comment: Modification of Diet in Renal Disease (MDRD) study formula. Estimated GFR rate interpretative information for both Americans and non- Americans is available on the [facility] Intranet at: [email or web address] Select: Lab Policies and Procedures Select: Reference Ranges - GFR Blood specimen (specimen) 05/19/2008 1:25 PM CDT 05/19/2008 1:39 PM CDT Brijesh Bird MD CHEMISTRY ORDERABLES Edit ed Performing Organization Address [facility] Phone Number INTERFACE SYSTEM Refer to clinic/hospital department [facility] CLIA# [id number] [address] [place] [address] * POC ACTIVATED CLOTTING TIME (05/19/2008 1:19 PM CDT) ACT POC 161 Seconds [facility] Comment: Note sheath pull range change effective 02/24/2006. ACT value for sheath pull at [facility] has been established to be < or = to 140. (See also Nursing Procedures for sheath pull in related nursing areas) Blood specimen (specimen) 05/19/2008 1:19 PM CDT 05/19/2008 1:19 PM CDT Brijesh Bird MD POINT OF CARE TESTING Fin al Result Performing Organization Address [facility] Phone Number INTERFACE SYSTEM Refer to clinic/hospital department [facility] CLIA# [id number] [address] [place] [address] * TYPE AND CROSSMATCH (05/19/2008 12:48 PM CDT) HISTORY CHECK No Historical ABO/Rh [facility] SPECIMEN LIFE 3 days from drawdate [facility] ABO/RH TYPE A Negative [facility] ANTIBODY SCREEN Negative [facility] Blood specimen (specimen) 05/19/2008 12:48 PM CDT Viktoriya Gavin MD BLOOD BANK ORDERABLES Edit ed Performing Organization Address [facility] Phone Number INTERFACE SYSTEM Refer to clinic/hospital department [facility] CLIA# [id number] [facility] [address] * CL CORONARY ANGIOGRAM (05/19/2008 11:59 AM CDT) Narrative INTERFACE SYSTEM - 05/19/2008 11:[address] [facility] [address] [place] [address] [email or web address] Cardiac Catheterization Comprehensive Report Patient: Abebe Cunningham Study ID: [id number] Gender: F : 1945 Age: 63 years Race: 1 Room: Bed: Height: 67 in ( 170.2 cm ) Study Date: May 19, 2008 Patient status: Outpatient Weight: 222 lb ( 100.9 kg ) Access. #: [id number] POC: Attending MD: Kamini Performing MD: Kamini [...] 11:40:08 Procedure Note Provider, Historical - 05/19/2008 [facility] [address] [place] [address] [email or web address] Cardiac Catheterization Comprehensive Report Patient: Abebe Cunningham Study ID: [id number] Gender: F : 1945 Age: 63 years Race: 1 Room: Bed: Height: 67 in ( 170.2 cm ) Study Date: May 19, 2008 Patient status: Outpatient Weight: 222 lb ( 100.9 kg ) Access. #: [id number] POC: Attending MD: Kamini Performing MD: Kamini [...] ORDERABLES Fi nal Result Performing Organization Address [facility] de Phone Number INTERFACE SYSTEM Refer to clinic/hospital department * POC ACTIVATED CLOTTING TIME (05/19/2008 11:53 AM CDT) ACT POC 192 Seconds [facility] Comment: Note sheath pull range change effective 02/24/2006. ACT value for sheath pull at [facility] has been established to be < or = to 140. (See also Nursing Procedures for sheath pull in related nursing areas) Blood specimen (specimen) 05/19/2008 11:53 AM CDT 05/19/2008 11:53 AM CDT us Brijesh Bird MD POINT OF CARE TESTING Fin al Result Performing Organization Address [facility] Phone Number INTERFACE SYSTEM Refer to clinic/hospital department [facility] CLIA# [id number] [address] [place] [address] * POC ACTIVATED CLOTTING TIME (05/19/2008 10:34 AM CDT) ACT POC 228 Seconds [facility] Comment: Note sheath pull range change effective 02/24/2006. ACT value for sheath pull at [facility] has been established to be < or = to 140. (See also Nursing Procedures for sheath pull in related nursing areas) Blood specimen (specimen) 05/19/2008 10:34 AM CDT 05/19/2008 10:34 AM CDT Brijesh Bird MD POINT OF CARE TESTING Fin al Result INTERFACE SYSTEM Refer to clinic/hospital department [facility] CLIA# [id number] [address] [place] [address] documented in this encounter Visit Diagnoses Diagnosis Other and unspecified angina pectoris documented in this encounter Care Teams Fructose Loader Relationship Specialty Start Date End Date Murray Bourne MD [address] [place] [address] PCP - General Family Practice 05/25/20 documented as of this encounter
--- OUTSIDE RECORDS SUMMARY | 2025-01-04 13:03 | XMS_ITS | Encounter Summary ---
Author Organization [facility] Address [address] [place] [address] Care Team Providers Care Historical Guide Name Role Phone Unavailable Primary Care Provider Unavailabl e Encounter Details Date Type Department Care Team (Late st Contact Info) Description 01/26/2023 Lab Requisition [facility] - Pathology Lab [address] [place] [address] Bola Arzola MD [facility] [address] [address] Anemia in other chronic diseases classified elsewhere Social History Tobacco Use Types Packs/Day Years Used Date Smoking Tobacco: Never Assessed Comments Unknown Sex and Gender Information Value Date Recorded Sex Assigned at Not on file 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 - See interpretation. 01/26/2023 5:16 PM [facility] Flow Cytometry Interpretation The [...] the flow cytometry specimen is reviewed for manufacturing quality engineer purposes. The bone marrow aspirate specimen shows no evidence of involvement by non-Hodgkin lymphoma or a high-grade myeloid neoplasm. Correlation with clinical findings, the concurrent bone marrow core biopsy, and relevant cytogenetic/molecu lar studies is required. 01/26/2023 5:16 PM [facility] Flow Cytometry Results Differential Result Comment Flow Cell Count /uL 21,300 Total Viability % 94.0 Lymphocytes % 17 Dim CD45 Region % 11 Monocytes % 9 Granulocytes % 63 01/26/2023 5:16 PM [facility] Reason for test Anemia in other chronic diseases classified elsewhere 01/26/2023 5:16 PM [facility] Client Specimen ID # [id number] 01/26/2023 5:16 PM [facility] Number of markers 10 were performed. A-2 Flow CD10 A-3 Flow CD13 A-5 Flow CD20 A-1 Flow CD5 A-4 Flow CD19 A-6 Flow CD33 A-7 Flow CD34 A-8 Flow CD45 A-9 [place]+CD19+ A-10 Lambda+CD19+ 01/26/2023 5:16 PM [facility] Pathologist Location at [facility] 01/26/2023 5:16 PM [facility] Disclaimer Test performed at [facility], [address] [place], [place], [address]. *The established laboratory minimum viability is 70%. [...] complexity clinical testing. 01/26/2023 5:16 PM CDT [facility] Embedded Images 5:16 PM CDT [facility] Pathology/Cytolo gy BONE MARROW SPECIMEN / Unknown 01/26/2023 9:23 AM CDT 01/26/2023 12:48 PM CDT Bola Arzola MD LAB - PATHOLOGY/CYTOLOGY ORDERAB LES Final Result [facility] [address] [place] [address], [facility] [phone] documented in this encounter Visit Diagnoses Diagnosis Anemia in other chronic diseases classified elsewhere documented in this encounter
== END 2025-01-03 12:05 | disposition home or self-care (01) ==
LOC: ANHLAB 12:07
PROVIDERS: PCP Family Medicine; Visit Provider Internal Medicine Hematology & Oncology
DX: D50.9 Iron deficiency anemia, unspecified (principal)
CPT/HCPCS: 36415; 82728; 83540; 83550; 85027

== ENCOUNTER 2025-02-24 01:06 | Day surgery (SDC) | payer MEDICARE, SELFPAY ==
[2025-02-10 14:11] VITALS: BMI 30.7
--- NOTE | 2025-02-24 08:28 | SUR.PREOP ---
617 Patient left a message on my voicemail from 02/23 in regards to some questions she had for her procedure today. I called patient back and she accidently had taken on of her iron pills on Monday, , and Monday not realizing her provider upped her iron to twice a day. She mentioned that her daughter fills her pill ela teacher every week. She said she did not take her iron at all on Monday or Monday and was questioning if she would need to be cancelled. I told her Dr. Rader would be here in the next hour and as soon I as saw him I would give him the information and see how he would like to proceed. I told her I would call her back by 730 today with an answer. Patient voiced understanding and would wait for my return call. [address] Rader about the pt's issue with iron. 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 725 called patient and asked her to come in [phone] for her procedure relayed what Dr. Rader told me about wanting to get her done today. Patient was in agreement and said she would be here this morning.
[2025-02-24 09:22] VITALS: BP 147/46; PULSE 58; RESP 18; TEMP 36.3; O2SAT 100
[2025-02-24] MEDS: LACTATED RINGERS 1,000 ML 150 ML IV CONT (09:38)
--- NOTE | 2025-02-24 10:01 | P.HP_ITS ---
History of Present Illness History of Present Illness Consent: Risks, benefits, and alternatives have been discussed and questions answered. Patient agrees to proceed with procedure. Chief complaint: AVM's in small bowel/anemia Narrative: Yvonne Cunningham is a 80 year old female here for push enteroscopy, she has been evaluated by LIBERT[facility], egd and colonoscopy no major findings then had capsule endoscopy that showed AVM in jejunum, denies overt gib. Review of Systems Review of Systems: All systems reviewed & are unremarkable except as noted in HPI and below PMFSH Past Medical History Medical History AVM (arteriovenous malformation) of small bowel, acquired Atrial flutter, paroxysmal Hemangioma of bone Cerebral aneurysm Foreign body ingestion Occult blood in stools Displaced fracture of fifth metatarsal bone, left foot, initial encounter for open fracture Traumatic ecchymosis of right elbow Chronic low back pain Synostosis (cranial) Heart attack Restless legs syndrome History of stroke 03/2021 Middle cerebral artery aneurysm Coronary artery disease Acute cerebrovascular accident (CVA) 03/2021 B12 deficiency Non-STEMI (non-ST elevated myocardial infarction) September 2019 with left heart catheterization demonstrating modest left main disease, total occlusion of LAD and right coronary artery proximally, modest 40-50% stenosis of the 1st obtuse marginal branch of the circumflex, remaining patency of GARCIA to LAD, patency of saphenous vein graft to RCA, occlusion of the proximal aspect of the vein graft to the 1st obtuse marginal branch circumflex, mild left ventricular systolic dysfunction with posterior basal akinesis with good ejection fraction with medical therapy recommended. 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 She has 2 daughters and 1 son. 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 The patient has been smoking for approximately 25-30 years. She quit at 1 point and then restarted. She is currently smoking 1/3 of a pack per day. Carlene Loja, her daughter, is her durable power lead nitrate processor for healthcare. The patient desires to be a full code. Caffeine-daily Smoking packs per day: 0.5 Smoking cigarettes per day: 10.0 Years smoked: 56 Smoking pack-years: 28.00 Smoking status: Current every day smoker Tobacco type: cigarettes Second hand tobacco smoke exposure: Yes Additional smoking assessment comments: patient states she smokes 2 citgarretttes/day Alcohol intake: current Alcohol use details: occasionally Substance use: current Substance use type: marijuana Other substance usage details: Marijuana for pain Do You Feel Safe in your Home?: Yes Lack of Transportation: No Lack of Food: Never True Current Housing: I Do Not Have Housing Concerned About Future Housing: No Difficulty Paying Gas/Electric Bills: No Difficulty Paying for Meds: No Currently Unemployed: No Education: High School Diploma/GED Difficulty w/ Childcare or Family Care: No Living arrangements: alone Occupation/Education: retired Gender identity (if verbalized by the patient): Female Sexual Orientation (if Verbalized by the Patient): Straight or Heterosexual Spiritual care concerns: No Agree to blood products: Yes Meds Home Medications and Allergies Home Medications ?Medication ?Instructions ?Recorded ?Confirmed ?Type amlodipine 5 mg tablet 5 mg PO DAILY 09/21/19 02/10/25 History aspirin 81 mg chewable tablet 81 mg PO DAILY 09/21/19 02/10/25 History metoprolol tartrate 25 mg tablet 12.5 mg PO BID 09/21/19 02/10/25 History omega-3 fatty acids-fish oil 340 1 cap PO DAILY 09/21/19 02/10/25 History mg-1,000 mg capsule nitroglycerin 0.4 mg sublingual 0.4 mg sublingual DIRECTED PRN 09/24/1905/29 Rx tablet chest pain #25 tabs pantoprazole 40 mg tablet,delayed 40 mg PO DAILY #30 tabs 09/24/19 02/10/25 Rx release atorvastatin 40 mg tablet 40 mg PO QHS 07/01/21 02/10/25 History folic acid 400 mcg tablet 0.4 mg PO BID #180 tabs 08/05/24 02/10/25 Rx acetaminophen 650 mg tablet 650 mg PO BID PRN Pain 10/02/24 02/10/25 History cholecalciferol (vitamin D3) 50 50 mcg PO DAILY 10/02/24 02/10/25 History mcg (2,000 unit) capsule ferrous sulfate 325 mg (65 mg 325 mg PO BID #180 tabs 10/02/24 02/10/25 Rx iron) tablet gabapentin 300 mg capsule 300 mg PO TID PRN pain 10/02/24 02/10/25 History biotin 10,000 mcg chewable tablet 10,000 mcg PO DAILY 11/11/24 02/10/25 History (Hair, Skin and Nails (biotin)) tramadol 50 mg tablet 50 mg PO Q8H PRN pain #90 tabs 11/22/24 02/10/25 Rx potassium chloride 10 mEq See Rx Instructions .Route 12/02/24 02/10/25 Rx tablet,extended release .COMPLEX #90 tabs bupropion HCl 150 mg tablet,12 hr 150 mg PO BID #180 tabs 12/09/24 02/10/25 Rx sustained-release (Wellbutrin SR) furosemide 20 mg tablet See Rx Instructions .Route 12/25/24 02/10/25 Rx .COMPLEX #90 tabs paroxetine HCl 20 mg tablet See Rx Instructions .Route 12/25/24 02/10/25 Rx .COMPLEX #90 tabs alendronate 70 mg tablet 70 mg PO WEEKLY #12 tabs 01/02/25 02/10/25 Rx calcium carbonate 600 mg PO DAILY #90 tabs 01/02/25 02/10/25 Rx lisinopril 10 mg tablet 10 mg PO DAILY #90 tabs 01/21/25 02/10/25 Rx mecobalamin (vitamin B12) 1,000 1,000 mcg sublingual DAILY #90 tabs 01/28/25 02/10/25 Rx mcg disintegrating tablet,sublingual Allergies Allergy/AdvReac Type Severity Reaction Status Date / Time No Known Allergies Allergy Verified 02/24/25 09:21 Vital Signs Vital Signs - 24 hr 02/24/25 09:22 Temperature 97.3 F L Pulse Rate 58 L Respiratory Rate 18 Blood Pressure 147/46 H Pulse Oximetry 100 Oxygen Delivery Room Air Exam Const: General: comfortable and no acute distress HENMT: Face/Nose/Sinus: Normal nares present Eyes: General: appearance normal, both eyes and all related structures Neck: Neck: no JVD Resp: Auscultation: clear to auscultation bilaterally Cardio: Rate: regular rate Rhythm: regular rhythm GI: Inspection: non-distended GI Palp: Yes Soft to palpation Skin: General skin exam: normal color Neuro: Speech: normal speech Extrem: General: normal to inspection Psych: Mental Status: mental status grossly normal Assessment and Plan Assessment and plan (1) AVM (arteriovenous malformation) of small bowel, acquired: Code(s): K55.20 - Angiodysplasia of colon without hemorrhage Status: Acute Assessment and Plan: push enteroscopy to assess proximal jejunum, if we find AVM then will treat with apc (2) [facility] (iron deficiency anemia): Qualifiers: Iron deficiency anemia type: unspecified iron deficiency Qualified Code(s): D50.9 - Iron deficiency anemia, unspecified Code(s): D50.9 - Iron deficiency anemia, unspecified Status: Acute
[2025-02-24 10:36] VITALS: BP 111/50; PULSE 56; RESP 20; O2SAT 97
[2025-02-24 10:46] VITALS: BP 106/50; PULSE 55; RESP 20; O2SAT 97
[2025-02-24 10:56] VITALS: BP 111/50; PULSE 56; RESP 20; O2SAT 97
== END 2025-02-24 11:10 | disposition home or self-care (01) ==
PROVIDERS: PCP Family Medicine; Referring Provider Internal Medicine Gastroenterology; Visit Provider Internal Medicine Gastroenterology
PROC: 0DJ08ZZ Inspection of Upper Intestinal Tract, Via Natural or Artificial Opening Endoscopic (ICD-10-PCS; CPT 43235; principal; 2025-02-24 10:15)
DX: D50.9 Iron deficiency anemia, unspecified (principal); F17.210 Nicotine dependence, cigarettes, uncomplicated; F12.90 Cannabis use, unspecified, uncomplicated
CPT/HCPCS: 43235; J2003; J2704; J7120